=== PATIENT | male | born 1955 | race Caucasian/White ===

== ENCOUNTER 2021-03-16 19:53 | Emergency (ER) | payer OTHER, MEDICARE, SELFPAY ==
[2021-03-16 20:08] VITALS: BP 139/77; PULSE 92; RESP 18; TEMP 36.7; O2SAT 100; BMI 25.9
--- NOTE | 2021-03-16 21:09 | ED.GENADULT ---
HPI - General Adult General Chief complaint: General Medical Stated complaint: depression Source: patient Mode of arrival: ambulatory Limitations: no limitations History of Present Illness HPI narrative: 65-year-old male presents for depression, states that he has chronic pain which is causing his depression. He would like to speak to counselor to help him with coping mechanisms. He denies suicidal ideation, homicidal ideation, alcohol and illicit drug use, denies chest pain or pressure, palpitations, shortness breath, abdominal pain, abdominal distention, fevers, chills nausea, vomiting, dysuria, hematuria, or any other concerning symptoms. Onset (ago): unknown Severity: moderate Pain Consistency: constant Relieving factors: none Associated symptoms: denies other symptoms Related Data Allergies Allergy/AdvReac Type Severity Reaction Status Date / Time ergotamine [ERGOTAMINE] AdvReac Severe NAUSEA Unverified 07/19/20 15:29 Review of Systems Review of Systems: Constitutional: No Fever, No Chills ENT/Mouth: No sore throat, No Rhinorrhea Eyes: No Eye Pain, No Swelling, No Redness Cardiovascular: No Chest Pain, No SOB Respiratory: No Cough, No Sputum Gastrointestinal: No Nausea, No Vomiting, No Diarrhea, No abdominal Pain Genitourinary: No Dysuria, No Hematuria Musculoskeletal: No joint pain, No Myalgias, No Joint Swelling Skin: No Skin Lesions, No rash Neuro: No Weakness, No Numbness, No Loss of Consciousness, No Dizziness, No Headache Psych: No Anxiety, No Depression, No SI/HI/AH/VH Heme/Lymph: No Bruising, No Bleeding,No Lymphadenopathy Endocrine: No Polyuria, No Polydipsia Yes all other systems are reviewed and are negative [facility] Past Medical History Attestation statement: The following information was validated with the patient. Source: old records reviewed Medical History HTN (hypertension) Pacemaker Surgical History History of hip replacement History of spinal fusion Social History Social History Advance Directives: No Advance Directives Information Provided: No Physical Exam Vital Signs: Vital Signs: Last Vital Signs Temp 98.0 F 05/15/21 20:08 Pulse 92 03/16/21 20:08 Resp 18 03/16/21 20:08 BP 139/77 03/16/21 20:08 Pulse Ox 100 03/16/21 20:08 Body Mass Index 25.9 Appearance: Alert. Oriented X3. No acute distress. Eyes: Pupils equal, round and reactive to light. ENT: Pharynx normal. Neck: Normal inspection. Neck supple. CVS: Normal heart rate and rhythm. Pulses normal. Respiratory: No respiratory distress. Breath sounds normal. Abdomen: Soft and nontender. Skin: Skin warm and dry. Normal skin color. Normal skin turgor. Extremities: No lower extremity edema. Neuro: No motor deficit. No sensory deficit. Course Course Course Narrative: 65-year-old male presented for depression and requesting to speak to somebody. Upon my initial assessment, patient states that he has changed his mind, he denies suicidal ideation, and homicidal ideation. States that he has no threat to himself or others. He was given contact numbers for [facility] as an outpatient, we do not have the [facility] counselors present today and they will not be here until tomorrow. As patient is not a harm to himself or others, he feels more appropriate to be discharged home. Medical Decision Making Differential Diagnosis Differential Diagnosis: Depression Medical Records Medical records reviewed: Yes I reviewed the patient's medical records. Discharge Plan Discharge Clinical Impression: Depression Patient Disposition: Home, Self-Care Instructions: Depression (ED) Additional Instructions: Please follow-up with N as an outpatient. Thank you for choosing this emergency department for evaluation. Please follow-up with primary care physician as needed. Return to the emergency department for any new, concerning, or worsening symptoms. Interventions: ED Discharge Assessment Last Done: 03/16/21 21:53 Discharge Date/Time: 03/16/21 21:55
--- NOTE | 2021-03-16 21:45 | PC.NURSE ---
PT BIBA, SITTING UPRIGHT IN CHAIR, RR EVEN UNLABORED, SKIN WPD, AOX3. PT REPORTS FEELING DOWN, CALLED LOCAL POLICE TO ASK FOR PHONE NUMBER FOR SOMEONE TO TALK TO, EMS WAS DISPATCHED TO PT'S HOUSE. PT EXPLICITLY DENIES SI/HI, NO THOUGHTS OF SELF HARM, NO HX SELF HARM. PT FEELS SITUATION WAS A MISUNDERSTANDING, OFFERS NO COMPLAINTS. PT EVALUATED BY BRYANT BAILEY, AGREEABLE TO D/C HOME W/ RESOURCE INFO.
== END 2021-03-16 21:55 | disposition home or self-care (01) ==
PROVIDERS: Emergency Provider Internal Medicine; PCP Internal Medicine
DX: F32.9 Major depressive disorder, single episode, unspecified (principal); G89.29 Other chronic pain; I10 Essential (primary) hypertension; Z95.0 Presence of cardiac pacemaker
CPT/HCPCS: 99282; 99283

== ENCOUNTER 2021-12-18 14:46 | Inpatient (IN) | payer MEDICARE, SELFPAY ==
--- NOTE | 2021-12-18 15:33 | HO.OPPROGNO ---
Subjective Subjective Reason For Visit: MDD Recurrent Episode Moderate Unspec Anxiety D/O Discharge Plan Discharge Referrals: Travis Mcarthur MD [Primary Care Provider] - 1 Week Assessment & Plan I spent minutes with the patient and/or on the patient floor today, greater than?50% of which was spent counseling/coordinating care.
[2021-12-18 16:17] VITALS: BP 190/112; PULSE 74; RESP 16; TEMP 37.2; O2SAT 98
[2021-12-18] MEDS: Acetaminophen 325 MG TABLET 650 MG PO (17:14)
--- NOTE | 2021-12-18 17:29 | PC.ADMIT ---
Patient 66 year-old with history of Hypertension and Pacemaker placement surgery . Arrived to the unit via stretcher today around 15:00 PM from [facility]. Patient was seen at [facility] for suicidal attempt and decompensation of his mental status disorder. Patient reported he was not able to manage his pain because painkiller medication was not working and he decided to hurt himself . On physical examination : Patient is alert, oriented x3, wears glasses and dentures at baseline. HS,LS,BS not listen to, patient, patient has a skin cut to the left side of the neck and in the right wrist, patient declined complete assessment. Patient was admitted to the unit with the diagnosis of Major Depressive Disorder and unspecified anxiety disorder for further evaluation and treatment.
[2021-12-18] MEDS: oxyCODONE HCl Immed Release 5 MG TABLET 20 MG PO (18:27)
[2021-12-18 18:54] VITALS: BMI 22.4
[2021-12-18 19:22] VITALS: BP 134/92; PULSE 76; O2SAT 99
[2021-12-18] MEDS: methADONE HCl 20 MG/2 ML ORAL.CONC 10 MG PO (20:21)
[2021-12-18] MEDS: cloNIDine HCL 0.1 MG TABLET PO (20:21)
[2021-12-18] MEDS: hydrOXYzine HCL 25 MG TABLET PO (20:57)
[2021-12-19] MEDS: oxyCODONE HCl Immed Release 5 MG TABLET 20 MG PO ×4 (01:03→20:35)
[2021-12-19] MEDS: traZODone HCL 50 MG TABLET PO (01:03)
[2021-12-19 07:00] VITALS: BMI 23.0
[2021-12-19 08:15] VITALS: BP 180/90; PULSE 73; RESP 18; TEMP 37.2; O2SAT 97
[2021-12-19] MEDS: methADONE HCl 20 MG/2 ML ORAL.CONC 10 MG PO ×3 (08:23→20:18)
[2021-12-19] MEDS: cloNIDine HCL 0.1 MG TABLET PO ×3 (08:23→20:21)
[2021-12-19] MEDS: lisinopriL 20 MG TABLET PO (08:24)
[2021-12-19 11:46] VITALS: BP 140/82
[2021-12-19] MEDS: Acetaminophen 325 MG TABLET 650 MG PO (12:04)
--- NOTE | 2021-12-19 15:11 | HO.PSYADMNOT ---
HPI Date of Service: 12/19/21 Chief Complaint: MDD Recurrent Episode Moderate Unspec Anxiety D/O Sources of Information: patient interviewed and chart reviewed HPI Subjective Notes: Conditional Voluntary Narrative: The patient is a 66-year-old male, , living alone in his own apartment, unemployed on disability for more than 20 years referred from the emergency room of [facility] for suicidal ideation. The patient admitted that he has been cutting himself all over his body in order to not think about the pain in my spine . The patient claims that he has chronic back pain with several surgeries under of surgical fusions in 3 parts of his spine. Currently, he is not on any pain management clinic, and he has been using opioids from the street, mostly IV heroin. On interview, the patient reported that he has depressed mood, anhedonia, lack of energy, feelings of hopelessness and insomnia. At this moment, he adamantly denied suicidal ideation and he is able to contract for safety. He also denies pedro or past history of psychosis. He admitted that he has been using opioids in high amounts for the last 30 years since he start having chronic pain in his back. At certain point, he was on methadone and he has minimized his substance abuse Past Psychiatric History: denies prior psychiatric admissions, he has followed several times outpatient providers with limited compliance. Medical Evaluation Reviewed: Hospitalist Sandra Pending [facility] Medical History HTN (hypertension) Pacemaker Surgical History History of hip replacement History of spinal fusion Family History: Denies Social History: poor social support common disability for more than 20 years, denies having children or any contact with collateral family. Substance History: He admitted using opted for the last 30 years mostly for chronic pain but also he was on detox and rehab before Trauma History: . Denies Diagnostics Vital Signs (24Hr): Vital Signs - 24 hr 12/18/21 16:17 12/18/21 19:22 12/19/21 08:15 Temperature 98.9 F 99.0 F Pulse Rate 74 76 73 Respiratory Rate 16 18 Blood Pressure 190/112 H 134/92 H 180/90 H Pulse Oximetry 98 99 97 12/19/21 11:46 Temperature Pulse Rate Respiratory Rate Blood Pressure 140/82 H Pulse Oximetry BMI result Body Mass Index 22.4 Meds/Allergies Meds Home Medications Acetaminophen (Acetaminophen 325 Mg Tablet) 650 mg PO Q6H PRN PRN Reason: Headache/Pain Mild Scale (1-3) Last Admin: 12/19/21 12:04 Dose: 650 mg Documented by: Al Hydroxide/Mg Hydroxide (Magnesium Hydrox/Alum Hydrox 30 Ml Oral.Susp) 30 ml PO Q6H PRN PRN Reason: Heartburn/Nausea Clonidine HCl (Clonidine Hcl 0.1 Mg Tablet) 0.1 mg PO TID [facility]; Protocol Last Admin: 12/19/21 14:29 Dose: 0.1 mg Documented by: Hydroxyzine HCl (Hydroxyzine Hcl 25 Mg Tablet) 25 mg PO BEDTIME PRN PRN Reason: Anxiety Last Admin: 12/18/21 20:57 Dose: 25 mg Documented by: Lisinopril (Lisinopril 20 Mg Tablet) 20 mg PO DAILY [facility]; Protocol Last Admin: 12/19/21 08:24 Dose: 20 mg Documented by: Magnesium Hydroxide (Milk Of Magnesia 30 Ml Oral.Susp) 30 ml PO DAILY PRN PRN Reason: Constipation Methadone HCl (Methadone Hcl 20 Mg/2 Ml Oral.Conc) 10 mg PO TID [facility] Last Admin: 12/19/21 14:27 Dose: 10 mg Documented by: Mexiletine HCl (Mexiletine Hcl 150 Mg Capsule) 150 mg PO Q6H [facility] Last Admin: 12/19/21 12:04 Dose: 150 mg Documented by: Oxycodone HCl (Oxycodone Hcl Immed Release 5 Mg Tablet) 20 mg PO Q6H PRN PRN Reason: Pain, Mild (Pain Scale 1-3) Last Admin: 12/19/21 14:28 Dose: 20 mg Documented by: Trazodone HCl (Trazodone Hcl 50 Mg Tablet) 50 mg PO BEDTIME PRN PRN Reason: Insomnia Last Admin: 12/19/21 01:03 Dose: 50 mg Documented by: Allergies Allergies Allergy/AdvReac Type Severity Reaction Status Date / Time ergotamine [ERGOTAMINE] AdvReac Severe NAUSEA Unverified 07/19/20 15:29 Mental Status Exam Mental Status Exam Patient Appearance: Well Grooomed and Appropriate Patient Orientation: Person, Place and Situation Level of Consciousness: Awake and Appropriate Patient Behavior: Appropriate and Cooperative Mood Description: Withdrawn and Depressed Affect Description: Constricted Patient Cognition Impaired: No Ability to Follow Directions: Good Speech Pattern: Clear Memory Description: Intact Hallucinations: None Delusions: Not Present Thought Process: Linear Thought Content: positive for Intact Judgement: Fair Assessment & Plan Assessment & Plan (1) Depressive disorder: Status: Acute Code(s): F32.A - Depression, unspecified (2) Opioid abuse: Status: Acute Code(s): F11.10 - Opioid abuse, uncomplicated Plan middle-aged male with a long history of opiate use disorder due to chronic pain and opiate dependence admitted for self-harming behavior. He is able to contract for safety in the facility. Plan 1. Continue with regular medications. 2. Consultation with [facility] quit in and substance abuse services. 3. Start Remeron 7.5 mg p.o. q.h.s. to target insomnia and depression Reason for continued inpatient stay Substantial Risk for: harm to self, inability to function, rapid decompensation and med/psych decompensation
--- NOTE | 2021-12-19 15:58 | P.CNHOSGPS_ITS ---
History of Present Illness Data of Consult Service Date: 12/19/21 Requesting physician: [facility] Psychiatry Primary Care Provider: Travis Mcarthur MD HPI Reason for consult: H+P 66yo M admitted to [facility]-psych from [facility] ED for suicideal ideation. He has chronic neck and jaw pain and is s/p spinal surgery and jaw ORIF. He has been cutting himself all over his body in order to distract himself from the pain. He abuses IV heroin and IN cocaine. He is on methadone. Hospitalist consultation requested per protocol for routine medical H+P. Review of Systems Review of Systems: Yes all other systems are reviewed and are negative PMFSH Medical History HTN (hypertension) Pacemaker Functional capacity: uses cane/walker Pertinent family history: no CAD or DM Surgical History History of hip replacement History of spinal fusion Social History Household Members: None Housing: House Do you presently have visiting nurse or other home services: No Patient Tobacco Use Status: Never used Tobacco Use of substances other than those prescribed or required for medical reasons: Yes Substance Use Type: Heroin, IV Drugs, Marijuana, Opiates, Painkillers and Caffiene Substance Use Frequency: Occasionally Last Used Substance: Unknown Last Used Substance Other:: More than 5 years ago for the heroin. Painkillers used last night. Currently Displaying Signs/Symptoms of Drug Intoxication Withdrawal: No Any prior treatment program specific to substance use: Yes (He used to be in the methadone clinic.) Have you been hit, kicked, punched, or otherwise hurt by someone within the past year? If so, by whom?: No Do you feel safe in your current relationship?: No Current Relationship Is there a partner from a previous relationship who is making you feel unsafe now?: No Are you made to feel afraid or neglected: No Advance Directives: No Advance Directives Information Provided: No Advance Directives on File: No Do you have thoughts of harming others: None Do you have a plan to hurt others: No Plan Recently lost weight without trying: No Eating poorly because of decreased appetite: No Nutrition Risks: No Nutritional Risk Poor oral hygiene: No service: No Sexual orientation: Straight/Heterosexual Meds Allergies Allergy/AdvReac Type Severity Reaction Status Date / Time ergotamine [ERGOTAMINE] AdvReac Severe NAUSEA Unverified 07/19/20 15:29 Active Medications: Current Medications Acetaminophen (Acetaminophen 325 Mg Tablet) 650 mg PO Q6H PRN PRN Reason: Headache/Pain Mild Scale (1-3) Last Admin: 12/19/21 12:04 Dose: 650 mg Documented by: Al Hydroxide/Mg Hydroxide (Magnesium Hydrox/Alum Hydrox 30 Ml Oral.Susp) 30 ml PO Q6H PRN PRN Reason: Heartburn/Nausea Clonidine HCl (Clonidine Hcl 0.1 Mg Tablet) 0.1 mg PO TID [facility]; Protocol Last Admin: 12/19/21 14:29 Dose: 0.1 mg Documented by: Hydroxyzine HCl (Hydroxyzine Hcl 25 Mg Tablet) 25 mg PO BEDTIME PRN PRN Reason: Anxiety Last Admin: 12/18/21 20:57 Dose: 25 mg Documented by: Lisinopril (Lisinopril 20 Mg Tablet) 20 mg PO DAILY [facility]; Protocol Last Admin: 12/19/21 08:24 Dose: 20 mg Documented by: Magnesium Hydroxide (Milk Of Magnesia 30 Ml Oral.Susp) 30 ml PO DAILY PRN PRN Reason: Constipation Methadone HCl (Methadone Hcl 20 Mg/2 Ml Oral.Conc) 10 mg PO TID [facility] Last Admin: 12/19/21 14:27 Dose: 10 mg Documented by: Mexiletine HCl (Mexiletine Hcl 150 Mg Capsule) 150 mg PO Q6H [facility] Last Admin: 12/19/21 12:04 Dose: 150 mg Documented by: Mirtazapine (Mirtazapine 7.5 Mg Tablet) 7.5 mg PO BEDTIME [place] Oxycodone HCl (Oxycodone Hcl Immed Release 5 Mg Tablet) 20 mg PO Q6H PRN PRN Reason: Pain, Mild (Pain Scale 1-3) Last Admin: 12/19/21 14:28 Dose: 20 mg Documented by: Trazodone HCl (Trazodone Hcl 50 Mg Tablet) 50 mg PO BEDTIME PRN PRN Reason: Insomnia Last Admin: 12/19/21 01:03 Dose: 50 mg Documented by: Home Medications Medication Instructions Recorded Confirmed Last Taken Type clonidine HCl 0.2 mg tablet 1 tab PO TID 12/18/21 12/18/21 12/18/21 History lisinopril 20 mg tablet 1 tab PO DAILY 12/18/21 12/18/21 Unknown History methadone 10 mg tablet 1 tab PO Q8H PRN 12/18/21 12/18/21 12/18/21 History mexiletine 150 mg capsule 1 cap PO Q6H 12/18/21 12/18/21 12/18/21 History nifedipine 60 mg tablet,extended 1 tab PO DAILY 12/18/21 12/18/21 Unknown History release 24 hr Assessment and Plan (1) Hypertension: Status: Acute (2) Opioid abuse: Status: Acute (3) Depressive disorder: Status: Acute (4) Chronic pain: Status: Acute Plan 66yo M with HTN, pacemaker, chronic pain admitted to [facility] after suicidal gestures. Routine hospitalist consult requested per protocol. # HTN - continue lisinopril, clonidine, and nifedipine # ?ventricular arrhythmia - continue mexiletene # chronic pain - on methadone; consider Addiction Medicine consult and/or outpt Pain Management consult Thank you for this consultation. We are signing off the case at this time. Please communicate with us if any new medical questions arise. Physical Exam Vital Signs: Last Vital Signs Temp 99.0 F 12/19/21 08:15 Pulse 73 12/19/21 08:15 Resp 18 12/19/21 08:15 BP 140/82 H 12/19/21 11:46 Pulse Ox 97 12/19/21 08:15 BMI result Body Mass Index 22.4 Gen: in no acute distress HEENT: sclera anicteric, moist mucus membranes Neck: supple Lungs: clear to auscultation bilaterally Heart: regular rate and rhythm, no murmurs Abd: soft, non-tender, non-distended Ext: no edema Skin: warm/well-perfused Neuro: alert and oriented x3, no focal findings Psych: appropriate affect Neuro Cranial nerves: Yes CN's II-XII intact bilaterally
--- NOTE | 2021-12-19 17:00 | PC.NURSE ---
During interaction with this RN when asked how patient is feeling, Patient stated I wake up in agony each day. When I get out of here I am going to shove a knife through my eye. That will cause damage that can not be fixed. They may be able to pump some blood into me but it won't get fixed. It is not the best idea but it'll get the job done. Or I could shove a knife through my neck . Patient denied Plan or intent to act while in patient.
[2021-12-19 19:36] VITALS: BP 119/65; PULSE 73; RESP 19; TEMP 36.6; O2SAT 98
[2021-12-19] MEDS: Mirtazapine 7.5 MG TABLET PO (20:38)
[2021-12-20] MEDS: Acetaminophen 325 MG TABLET 650 MG PO ×3 (04:29→18:38)
[2021-12-20] MEDS: oxyCODONE HCl Immed Release 5 MG TABLET 20 MG PO ×3 (06:01→18:37)
[2021-12-20 07:49] VITALS: BP 148/67; PULSE 74; RESP 18; TEMP 36.8; O2SAT 96
[2021-12-20] MEDS: methADONE HCl 20 MG/2 ML ORAL.CONC 10 MG PO ×3 (07:51→21:00)
[2021-12-20] MEDS: NIFEdipine ER 60 MG TAB.ER.24 PO (07:53)
[2021-12-20] MEDS: lisinopriL 20 MG TABLET PO (07:53)
[2021-12-20] MEDS: cloNIDine HCL 0.1 MG TABLET PO ×3 (07:53→20:59)
--- NOTE | 2021-12-20 12:02 | HO.PSYCHPN ---
Subjective Subjective Date of Service: 12/20/21 Reason For Visit: MDD Recurrent Episode Moderate Unspec Anxiety D/O Subjective Notes: Conditional Voluntary Interim History: the nursing staff reported the patient has been compliant with medications. He has stated that he is going to commit suicide as soon as he gets discharged from here. Even the he claims to be depressed and suicidal, his affect is full and appropriate. He slept well and he is eating 100% of his meals. On interview, the patient admitted that he has suicidal thoughts, he understood that there are limits on the ability that we have to help him. He has chronic psychosocial stressors, poor social support and opioid use disorder. Mental Status Exam Mental Status Exam Patient Appearance: Appropriate Patient Orientation: Person and Situation Level of Consciousness: Awake Patient Behavior: Cooperative and Passive Mood Description: Calm Affect Description: Constricted Patient Cognition Impaired: No Ability to Follow Directions: Good Speech Pattern: Clear Memory Description: Intact Hallucinations: None Delusions: Not Present Thought Content: positive for Goal Oriented Judgement: Fair Diagnostics Vital Signs (24Hr): Vital Signs - 24 hr 12/19/21 19:36 12/20/21 07:49 Temperature 97.8 F 98.3 F Pulse Rate 73 74 Respiratory Rate 19 18 Blood Pressure 119/65 148/67 H Pulse Oximetry 98 96 BMI result Body Mass Index 23.0 Medications Medications Current Medications Acetaminophen (Acetaminophen 325 Mg Tablet) 650 mg PO Q6H PRN PRN Reason: Headache/Pain Mild Scale (1-3) Last Admin: 12/20/21 11:23 Dose: 650 mg Documented by: Al Hydroxide/Mg Hydroxide (Magnesium Hydrox/Alum Hydrox 30 Ml Oral.Susp) 30 ml PO Q6H PRN PRN Reason: Heartburn/Nausea Clonidine HCl (Clonidine Hcl 0.1 Mg Tablet) 0.1 mg PO TID [facility]; Protocol Last Admin: 12/20/21 07:53 Dose: 0.1 mg Documented by: Hydroxyzine HCl (Hydroxyzine Hcl 25 Mg Tablet) 25 mg PO BEDTIME PRN PRN Reason: Anxiety Last Admin: 12/18/21 20:57 Dose: 25 mg Documented by: Lisinopril (Lisinopril 20 Mg Tablet) 20 mg PO DAILY [facility]; Protocol Last Admin: 12/20/21 07:53 Dose: 20 mg Documented by: Magnesium Hydroxide (Milk Of Magnesia 30 Ml Oral.Susp) 30 ml PO DAILY PRN PRN Reason: Constipation Methadone HCl (Methadone Hcl 20 Mg/2 Ml Oral.Conc) 10 mg PO TID [facility] Last Admin: 12/20/21 07:51 Dose: 10 mg Documented by: Mexiletine HCl (Mexiletine Hcl 150 Mg Capsule) 150 mg PO Q6H [facility] Last Admin: 12/20/21 11:24 Dose: 150 mg Documented by: Mirtazapine (Mirtazapine 7.5 Mg Tablet) 7.5 mg PO BEDTIME [place] Last Admin: 12/19/21 20:38 Dose: 7.5 mg Documented by: Nifedipine (Nifedipine Er 60 Mg Tab.Er.24) 60 mg PO DAILY [place]; Protocol Last Admin: 12/20/21 07:53 Dose: 60 mg Documented by: Oxycodone HCl (Oxycodone Hcl Immed Release 5 Mg Tablet) 20 mg PO Q6H PRN PRN Reason: Pain, Mild (Pain Scale 1-3) Last Admin: 12/20/21 06:01 Dose: 20 mg Documented by: Trazodone HCl (Trazodone Hcl 50 Mg Tablet) 50 mg PO BEDTIME PRN PRN Reason: Insomnia Last Admin: 12/19/21 01:03 Dose: 50 mg Documented by: Allergies Allergies Allergy/AdvReac Type Severity Reaction Status Date / Time ergotamine [ERGOTAMINE] AdvReac Severe NAUSEA Unverified 07/19/20 15:29 Assessment & Plan Assessment & Plan (1) Hypertension: Status: Acute Code(s): I10 - Essential (primary) hypertension (2) Opioid abuse: Status: Acute Code(s): F11.10 - Opioid abuse, uncomplicated (3) Depressive disorder: Status: Acute Code(s): F32.A - Depression, unspecified (4) Chronic pain: Status: Acute Code(s): G89.29 - Other chronic pain Plan 66yo M with HTN, pacemaker, chronic pain admitted to [facility] after suicidal gestures. Routine hospitalist consult requested per protocol. The patient carries a diagnosis of opiate use disorder and depressive symptoms. Plan 1. Increase Remeron up to 15 mg p.o. q.h.s.. 2. Consult with Iman Bradley for substance abuse. I spent minutes with the patient and/or on the patient floor today, greater than?50% of which was spent counseling/coordinating care. Reason for contiued inpatient stay Substantial Risk for: inability to function, rapid decompensation and med/psych decompensation
[2021-12-20 16:43] VITALS: BP 129/82; PULSE 75
[2021-12-20 20:50] VITALS: BP 103/64; PULSE 99; RESP 18; TEMP 36.9; O2SAT 98
[2021-12-20] MEDS: Mirtazapine 15 MG TABLET PO (20:59)
[2021-12-21] MEDS: oxyCODONE HCl Immed Release 5 MG TABLET 20 MG PO ×4 (00:24→19:40)
[2021-12-21] MEDS: Acetaminophen 325 MG TABLET 650 MG PO ×3 (00:25→19:41)
[2021-12-21] MEDS: hydrOXYzine HCL 25 MG TABLET PO (00:33)
[2021-12-21] MEDS: traZODone HCL 50 MG TABLET PO (00:33)
[2021-12-21] MEDS: Magnesium Hydrox/Alum Hydrox 30 ML ORAL.SUSP PO ×2 (06:45→21:22)
[2021-12-21 08:00] VITALS: BP 116/76; PULSE 99; TEMP 36.6; O2SAT 96
[2021-12-21] MEDS: lisinopriL 20 MG TABLET PO (08:13)
[2021-12-21] MEDS: cloNIDine HCL 0.1 MG TABLET PO ×3 (08:13→20:01)
[2021-12-21] MEDS: NIFEdipine ER 60 MG TAB.ER.24 PO (08:13)
[2021-12-21] MEDS: methADONE HCl 20 MG/2 ML ORAL.CONC 10 MG PO ×3 (08:14→20:01)
--- NOTE | 2021-12-21 10:19 | P.PNPSI_ITS ---
Subjective Subjective Date of Service: 12/21/21 Reason For Visit: MDD Recurrent Episode Moderate Unspec Anxiety D/O Interim History: pt is found sleeping in front of the TV. easily rousable. affable, engaging. states he is depressed and suicidal and there isn't much anyone can do about it. states meds don't work. reviews his life as a shit sandwich, states he's been told he's not depressed, he's just had a rotten life. MD encourages pt to consider ECT, which pt states he will. informs MD he has no plan or intent to harm himself in the hospital. per staff, pleasant, poor sleep. +SI, no plan or intent here. left face and arm lacs. pain-med seeking. Mental Status Exam Mental Status Exam Narrative: appropriately dressed and groomed. cooperative. no PMA/PMR. speech incr in rate and amount, nml loudness, decr latency. thoughts linear and logical in response to questions, spontaneously wandering. affect full range, normo- intense, non-labile, not consistent with expressed mood or context. mood depressed. endorses SI. no HI/AVH expressed. Diagnostics Vital Signs (24Hr): Vital Signs - 24 hr 12/20/21 16:43 12/20/21 20:50 Temperature 98.5 F Pulse Rate 75 99 Respiratory Rate 18 Blood Pressure 129/82 103/64 Pulse Oximetry 98 BMI result Body Mass Index 23.0 Medications Medications Current Medications Acetaminophen (Acetaminophen 325 Mg Tablet) 650 mg PO Q6H PRN PRN Reason: Headache/Pain Mild Scale (1-3) Last Admin: 12/21/21 06:33 Dose: 650 mg Documented by: Al Hydroxide/Mg Hydroxide (Magnesium Hydrox/Alum Hydrox 30 Ml Oral.Susp) 30 ml PO Q6H PRN PRN Reason: Heartburn/Nausea Last Admin: 12/21/21 06:45 Dose: 30 ml Documented by: Clonidine HCl (Clonidine Hcl 0.1 Mg Tablet) 0.1 mg PO TID [place]; Protocol Last Admin: 12/21/21 08:13 Dose: 0.1 mg Documented by: Hydroxyzine HCl (Hydroxyzine Hcl 25 Mg Tablet) 25 mg PO BEDTIME PRN PRN Reason: Anxiety Last Admin: 12/21/21 00:33 Dose: 25 mg Documented by: Lisinopril (Lisinopril 20 Mg Tablet) 20 mg PO DAILY [facility]; Protocol Last Admin: 12/21/21 08:13 Dose: 20 mg Documented by: Magnesium Hydroxide (Milk Of Magnesia 30 Ml Oral.Susp) 30 ml PO DAILY PRN PRN Reason: Constipation Methadone HCl (Methadone Hcl 20 Mg/2 Ml Oral.Conc) 10 mg PO TID [facility] Last Admin: 12/21/21 08:14 Dose: 10 mg Documented by: Mexiletine HCl (Mexiletine Hcl 150 Mg Capsule) 150 mg PO Q6H [facility] Last Admin: 12/21/21 05:08 Dose: 150 mg Documented by: Mirtazapine (Mirtazapine 15 Mg Tablet) 15 mg PO BEDTIME [facility] Last Admin: 12/20/21 20:59 Dose: 15 mg Documented by: Nifedipine (Nifedipine Er 60 Mg Tab.Er.24) 60 mg PO DAILY [facility]; Protocol Last Admin: 12/21/21 08:13 Dose: 60 mg Documented by: Oxycodone HCl (Oxycodone Hcl Immed Release 5 Mg Tablet) 20 mg PO Q6H PRN PRN Reason: Pain, Mild (Pain Scale 1-3) Last Admin: 12/21/21 06:34 Dose: 20 mg Documented by: Trazodone HCl (Trazodone Hcl 50 Mg Tablet) 50 mg PO BEDTIME PRN PRN Reason: Insomnia Last Admin: 12/21/21 00:33 Dose: 50 mg Documented by: Allergies Allergies Allergy/AdvReac Type Severity Reaction Status Date / Time ergotamine [ERGOTAMINE] AdvReac Severe NAUSEA Verified 12/20/21 20:55 Assessment & Plan Assessment & Plan (1) Hypertension: Status: Acute Code(s): I10 - Essential (primary) hypertension (2) Opioid abuse: Status: Acute Code(s): F11.10 - Opioid abuse, uncomplicated (3) Depressive disorder: Status: Acute Code(s): F32.A - Depression, unspecified (4) Chronic pain: Status: Acute Code(s): G89.29 - Other chronic pain Plan 66yo M with HTN, pacemaker, chronic pain admitted to [facility] after suicidal gestures. Routine hospitalist consult requested per protocol. The patient carries a diagnosis of opiate use disorder and depressive symptoms. Plan 1. Increase Remeron up to 15 mg p.o. q.h.s. increase remeron to 30 mg QHS as of 12/21 for insomnia. 2. Consult with Iman Bradley for substance abuse. I spent minutes with the patient and/or on the patient floor today, greater than?50% of which was spent counseling/coordinating care. Reason for contiued inpatient stay Substantial Risk for: harm to self, inability to function and rapid decompensation
[2021-12-21 15:00] VITALS: BP 111/83; PULSE 119; O2SAT 94
[2021-12-21 17:58] VITALS: BP 130/63; PULSE 103; O2SAT 98
[2021-12-21 19:53] VITALS: BP 122/62; PULSE 94; RESP 18; TEMP 36.5; O2SAT 97
[2021-12-21] MEDS: Mirtazapine 30 MG TABLET PO (20:01)
[2021-12-22] MEDS: traZODone HCL 50 MG TABLET PO ×2 (01:38→23:09)
[2021-12-22] MEDS: hydrOXYzine HCL 25 MG TABLET PO ×2 (01:38→23:09)
[2021-12-22] MEDS: oxyCODONE HCl Immed Release 5 MG TABLET 20 MG PO ×2 (01:38→20:25)
[2021-12-22] MEDS: Acetaminophen 325 MG TABLET 650 MG PO (01:39)
[2021-12-22 06:00] VITALS: BP 156/83; PULSE 125; TEMP 37; O2SAT 98
[2021-12-22] MEDS: lisinopriL 20 MG TABLET PO (08:06)
[2021-12-22] MEDS: methADONE HCl 20 MG/2 ML ORAL.CONC 10 MG PO ×3 (08:06→20:15)
[2021-12-22] MEDS: NIFEdipine ER 60 MG TAB.ER.24 PO (08:06)
[2021-12-22] MEDS: cloNIDine HCL 0.1 MG TABLET PO ×3 (08:06→20:15)
--- NOTE | 2021-12-22 10:13 | P.PNPSI_ITS ---
Subjective Subjective Date of Service: 12/22/21 Reason For Visit: MDD Recurrent Episode Moderate Unspec Anxiety D/O Interim History: pt remains affable, engaging. reiterates his plan to kill himself after he discharges from the hospital. states he is depressed. adamantly denies any rolf n or intent to harm himself while here. discusses his social isolation and loneliness as reasons for wanting to end his life. per staff, c/o 10/10 pain in the neck and wrist. +SI, no plan or intent while hospitalized. Mental Status Exam Mental Status Exam Narrative: appropriately dressed and groomed. cooperative. no PMA/PMR. speech incr in rate and amount, nml loudness, decr latency. thoughts linear and logical in response to questions, spontaneously wandering. affect full range, normo-i ntense, non-labile, not consistent with expressed mood or context. mood depressed. endorses SI. no HI/AVH expressed. Diagnostics Vital Signs (24Hr): Vital Signs - 24 hr 12/21/21 15:00 12/21/21 17:58 12/21/21 19:53 Temperature 97.7 F Pulse Rate 119 H 103 H 94 Respiratory Rate 18 Blood Pressure 111/83 130/63 122/62 Pulse Oximetry 94 98 97 BMI result Body Mass Index 23.0 Medications Medications Current Medications Acetaminophen (Acetaminophen 325 Mg Tablet) 650 mg PO Q6H PRN PRN Reason: Headache/Pain Mild Scale (1-3) Last Admin: 12/22/21 01:39 Dose: 650 mg Documented by: Al Hydroxide/Mg Hydroxide (Magnesium Hydrox/Alum Hydrox 30 Ml Oral.Susp) 30 ml PO Q6H PRN PRN Reason: Heartburn/Nausea Last Admin: 12/21/21 21:22 Dose: 30 ml Documented by: Clonidine HCl (Clonidine Hcl 0.1 Mg Tablet) 0.1 mg PO TID [place]; Protocol Last Admin: 12/22/21 08:06 Dose: 0.1 mg Documented by: Hydroxyzine HCl (Hydroxyzine Hcl 25 Mg Tablet) 25 mg PO BEDTIME PRN PRN Reason: Anxiety Last Admin: 12/22/21 01:38 Dose: 25 mg Documented by: Lisinopril (Lisinopril 20 Mg Tablet) 20 mg PO DAILY [facility]; Protocol Last Admin: 12/22/21 08:06 Dose: 20 mg Documented by: Magnesium Hydroxide (Milk Of Magnesia 30 Ml Oral.Susp) 30 ml PO DAILY PRN PRN Reason: Constipation Methadone HCl (Methadone Hcl 20 Mg/2 Ml Oral.Conc) 10 mg PO TID [facility] Last Admin: 12/22/21 08:06 Dose: 10 mg Documented by: Mexiletine HCl (Mexiletine Hcl 150 Mg Capsule) 150 mg PO Q6H [facility] Last Admin: 12/22/21 05:32 Dose: 150 mg Documented by: Mirtazapine (Mirtazapine 30 Mg Tablet) 30 mg PO BEDTIME [facility] Last Admin: 12/21/21 20:01 Dose: 30 mg Documented by: Nifedipine (Nifedipine Er 60 Mg Tab.Er.24) 60 mg PO DAILY [facility]; Protocol Last Admin: 12/22/21 08:06 Dose: 60 mg Documented by: Oxycodone HCl (Oxycodone Hcl Immed Release 5 Mg Tablet) 20 mg PO Q6H PRN PRN Reason: Pain, Mild (Pain Scale 1-3) Last Admin: 12/22/21 01:38 Dose: 20 mg Documented by: Trazodone HCl (Trazodone Hcl 50 Mg Tablet) 50 mg PO BEDTIME PRN PRN Reason: Insomnia Last Admin: 12/22/21 01:38 Dose: 50 mg Documented by: Allergies Allergies Allergy/AdvReac Type Severity Reaction Status Date / Time ergotamine [ERGOTAMINE] AdvReac Severe NAUSEA Verified 12/20/21 20:55 Assessment & Plan Assessment & Plan (1) Hypertension: Status: Acute Code(s): I10 - Essential (primary) hypertension (2) Opioid abuse: Status: Acute Code(s): F11.10 - Opioid abuse, uncomplicated (3) Depressive disorder: Status: Acute Code(s): F32.A - Depression, unspecified (4) Chronic pain: Status: Acute Code(s): G89.29 - Other chronic pain Plan 66yo M with HTN, pacemaker, chronic pain admitted [facility] after suicidal gestures. Routine hospitalist consult requested per protocol. The patient carries a diagnosis of opiate use disorder and depressive symptoms. Plan 1. Increase Remeron up to 15 mg p.o. q.h.s. increased remeron to 30 mg QHS as of 12/21 for insomnia. 2. Consult with Iman Bradley for substance abuse. 3. T/C commitment and ECT as pt is clearly expressing intent to end his life post-discharge. I spent minutes with the patient and/or on the patient floor today, greater than?50% of which was spent counseling/coordinating care. Reason for contiued inpatient stay Substantial Risk for: harm to self
--- NOTE | 2021-12-22 14:02 | PC.NURSE ---
Pt reports I will not hurt myself here, but when I go home, no matter how long it takes, I will make sure I do it the right way and end it all . Pt contracted for safety while on the unit.
[2021-12-22 15:50] VITALS: BP 133/72; PULSE 97; O2SAT 98
[2021-12-22] MEDS: Mirtazapine 30 MG TABLET PO (20:15)
[2021-12-22 20:46] VITALS: BP 169/82; PULSE 106; RESP 18; TEMP 36.9; O2SAT 98
[2021-12-23 09:00] VITALS: BP 147/79; PULSE 76; RESP 16; TEMP 36.6; O2SAT 98
[2021-12-23] MEDS: NIFEdipine ER 60 MG TAB.ER.24 PO (09:37)
[2021-12-23] MEDS: oxyCODONE HCl Immed Release 5 MG TABLET 20 MG PO ×3 (09:37→22:01)
[2021-12-23] MEDS: methADONE HCl 20 MG/2 ML ORAL.CONC 10 MG PO ×3 (09:37→20:21)
[2021-12-23] MEDS: cloNIDine HCL 0.1 MG TABLET PO ×3 (09:38→20:21)
[2021-12-23] MEDS: lisinopriL 20 MG TABLET PO (09:39)
[2021-12-23 16:00] VITALS: BP 115/61; PULSE 71; O2SAT 97
--- NOTE | 2021-12-23 16:31 | P.PNPSI_ITS ---
Subjective Subjective Date of Service: 12/23/21 Reason For Visit: MDD Recurrent Episode Moderate Unspec Anxiety D/O Interim History: pt found resting in bed late morning. c/o pain. no requests or complaints. still wanting to , not planning to do anything to [facility] himself [facility]. per staff, expressing anx/dep 08/11. +SI. slept about 7 hours. got hydroxyzine, trazodone, and oxycodone last NOC. Mental Status Exam Mental Status Exam Narrative: appropriately dressed and groomed. cooperative. no PMA/PMR. speech incr in rate, decr amount, nml loudness, nml latency. thoughts linear and logical in response to questions. affect constricted, normo-intense, non-labile, consistent with context. endorses SI. no HI/AVH expressed. Diagnostics Vital Signs (24Hr): Vital Signs - 24 hr 12/22/21 20:46 12/23/21 09:00 Temperature 98.4 F 98 F Pulse Rate 106 H 76 Respiratory Rate 18 16 Blood Pressure 169/82 H 147/79 H Pulse Oximetry 98 98 BMI result Body Mass Index 23.0 Medications Medications Current Medications Acetaminophen (Acetaminophen 325 Mg Tablet) 650 mg PO Q6H PRN PRN Reason: Headache/Pain Mild Scale (1-3) Last Admin: 12/22/21 01:39 Dose: 650 mg Documented by: Al Hydroxide/Mg Hydroxide (Magnesium Hydrox/Alum Hydrox 30 Ml Oral.Susp) 30 ml PO Q6H PRN PRN Reason: Heartburn/Nausea Last Admin: 12/21/21 21:22 Dose: 30 ml Documented by: Clonidine HCl (Clonidine Hcl 0.1 Mg Tablet) 0.1 mg PO TID [facility]; Protocol Last Admin: 12/23/21 16:10 Dose: 0.1 mg Documented by: Hydroxyzine HCl (Hydroxyzine Hcl 25 Mg Tablet) 25 mg PO BEDTIME PRN PRN Reason: Anxiety Last Admin: 12/22/21 23:09 Dose: 25 mg Documented by: Lisinopril (Lisinopril 20 Mg Tablet) 20 mg PO DAILY [facility]; Protocol Last Admin: 12/23/21 09:39 Dose: 20 mg Documented by: Magnesium Hydroxide (Milk Of Magnesia 30 Ml Oral.Susp) 30 ml PO DAILY PRN PRN Reason: Constipation Methadone HCl (Methadone Hcl 20 Mg/2 Ml Oral.Conc) 10 mg PO TID [facility] Last Admin: 12/23/21 16:11 Dose: 10 mg Documented by: Mexiletine HCl (Mexiletine Hcl 150 Mg Capsule) 150 mg PO Q6H [facility] Last Admin: 12/23/21 16:10 Dose: 150 mg Documented by: Mirtazapine (Mirtazapine 30 Mg Tablet) 30 mg PO BEDTIME [facility] Last Admin: 12/22/21 20:15 Dose: 30 mg Documented by: Nifedipine (Nifedipine Er 60 Mg Tab.Er.24) 60 mg PO DAILY [facility]; Protocol Last Admin: 12/23/21 09:37 Dose: 60 mg Documented by: Oxycodone HCl (Oxycodone Hcl Immed Release 5 Mg Tablet) 20 mg PO Q6H PRN PRN Reason: Pain, Mild (Pain Scale 1-3) Last Admin: 12/23/21 16:10 Dose: 20 mg Documented by: Trazodone HCl (Trazodone Hcl 50 Mg Tablet) 50 mg PO BEDTIME PRN PRN Reason: Insomnia Last Admin: 12/22/21 23:09 Dose: 50 mg Documented by: Allergies Allergies Allergy/AdvReac Type Severity Reaction Status Date / Time ergotamine [ERGOTAMINE] AdvReac Severe NAUSEA Verified 12/20/21 20:55 Assessment & Plan Assessment & Plan (1) Hypertension: Status: Acute Code(s): I10 - Essential (primary) hypertension (2) Opioid abuse: Status: Acute Code(s): F11.10 - Opioid abuse, uncomplicated (3) Depressive disorder: Status: Acute Code(s): F32.A - Depression, unspecified (4) Chronic pain: Status: Acute Code(s): G89.29 - Other chronic pain Plan 66yo M with HTN, pacemaker, chronic pain admitted to [facility] after suicidal gestures. Routine hospitalist consult requested per protocol. The patient carries a diagnosis of opiate use disorder and depressive symptoms. Plan 1. Increase Remeron up to 15 mg p.o. q.h.s. increased remeron to 30 mg QHS as of 12/21 for insomnia. 2. Consult with Iman Bradley for substance abuse. 3. T/C commitment and ECT as pt is clearly expressing intent to end his life post-discharge. I spent minutes with the patient and/or on the patient floor today, greater than?50% of which was spent counseling/coordinating care. Reason for contiued inpatient stay Substantial Risk for: harm to self
[2021-12-23 19:00] VITALS: BP 160/86; PULSE 92; RESP 16; TEMP 36.4; O2SAT 98
[2021-12-23] MEDS: Acetaminophen 325 MG TABLET 650 MG PO (19:45)
[2021-12-23] MEDS: Mirtazapine 30 MG TABLET PO (20:21)
[2021-12-24] MEDS: hydrOXYzine HCL 25 MG TABLET PO ×2 (00:47→22:48)
[2021-12-24] MEDS: traZODone HCL 50 MG TABLET PO ×2 (00:47→22:48)
[2021-12-24] MEDS: oxyCODONE HCl Immed Release 5 MG TABLET 20 MG PO ×3 (05:37→20:00)
[2021-12-24 07:10] VITALS: BP 146/58; PULSE 100; RESP 18; TEMP 36.6; O2SAT 97
[2021-12-24] MEDS: lisinopriL 20 MG TABLET PO (08:31)
[2021-12-24] MEDS: cloNIDine HCL 0.1 MG TABLET PO ×3 (08:31→20:58)
[2021-12-24] MEDS: methADONE HCl 20 MG/2 ML ORAL.CONC 10 MG PO ×3 (08:31→20:02)
[2021-12-24] MEDS: NIFEdipine ER 60 MG TAB.ER.24 PO (08:31)
--- NOTE | 2021-12-24 10:58 | P.PNPSI_ITS ---
Subjective Subjective Date of Service: 12/24/21 Reason For Visit: MDD Recurrent Episode Moderate Unspec Anxiety D/O Subjective Notes: Conditional Voluntary Interim History: The nursing staff reported that the patient is appropriate slept well. He has been visible in the unit. He complained of pain and he has been agitated requesting his opioids. He has shown drug-seeking behavior. He also has reported that as soon as he gets discharged he will commit suicide because there is nothing to live for him. Even though that he verbalized suicidal ideation, he was ready to contract for safety in the facility. On interview, it was clear that his alleged mood does not have correlation with his observed affect. His affect was full and appropriate and even though that he endorsed suicidal ideation and depression he didn't look dysphoric. The patient denies side effects with Remeron at night. Medication Compliance: Yes Mental Status Exam Mental Status Exam Patient Appearance: Well Grooomed Patient Orientation: Person, Place, Time and Situation Level of Consciousness: Awake and Appropriate Patient Behavior: Guarded, Cooperative and Passive Mood Description: Appropriate Affect Description: Constricted Patient Cognition Impaired: No Ability to Follow Directions: Good Speech Pattern: Clear Memory Description: Intact Hallucinations: None Delusions: Not Present Thought Process: Linear Thought Content: positive for Circumstantial Judgement: Fair Diagnostics Vital Signs (24Hr): Vital Signs - 24 hr 12/23/21 16:00 12/23/21 19:00 12/24/21 07:10 Temperature 97.5 F 97.9 F Pulse Rate 71 92 100 Respiratory Rate 16 18 Blood Pressure 115/61 160/86 H 146/58 H Pulse Oximetry 97 98 97 BMI result Body Mass Index 23.0 Medications Medications Current Medications Acetaminophen (Acetaminophen 325 Mg Tablet) 650 mg PO Q6H PRN PRN Reason: Headache/Pain Mild Scale (1-3) Last Admin: 12/23/21 19:45 Dose: 650 mg Documented by: Al Hydroxide/Mg Hydroxide (Magnesium Hydrox/Alum Hydrox 30 Ml Oral.Susp) 30 ml PO Q6H PRN PRN Reason: Heartburn/Nausea Last Admin: 12/21/21 21:22 Dose: 30 ml Documented by: Clonidine HCl (Clonidine Hcl 0.1 Mg Tablet) 0.1 mg PO TID [facility]; Protocol Last Admin: 12/24/21 08:31 Dose: 0.1 mg Documented by: Hydroxyzine HCl (Hydroxyzine Hcl 25 Mg Tablet) 25 mg PO BEDTIME PRN PRN Reason: Anxiety Last Admin: 12/24/21 00:47 Dose: 25 mg Documented by: Lisinopril (Lisinopril 20 Mg Tablet) 20 mg PO DAILY [facility]; Protocol Last Admin: 12/24/21 08:31 Dose: 20 mg Documented by: Magnesium Hydroxide (Milk Of Magnesia 30 Ml Oral.Susp) 30 ml PO DAILY PRN PRN Reason: Constipation Methadone HCl (Methadone Hcl 20 Mg/2 Ml Oral.Conc) 10 mg PO TID [facility] Last Admin: 12/24/21 08:31 Dose: 10 mg Documented by: Mexiletine HCl (Mexiletine Hcl 150 Mg Capsule) 150 mg PO Q6H [facility] Last Admin: 12/24/21 05:37 Dose: 150 mg Documented by: Mirtazapine (Mirtazapine 30 Mg Tablet) 30 mg PO BEDTIME [facility] Last Admin: 12/23/21 20:21 Dose: 30 mg Documented by: Nifedipine (Nifedipine Er 60 Mg Tab.Er.24) 60 mg PO DAILY [facility]; Protocol Last Admin: 12/24/21 08:31 Dose: 60 mg Documented by: Oxycodone HCl (Oxycodone Hcl Immed Release 5 Mg Tablet) 20 mg PO Q6H PRN PRN Reason: Pain, Moderate (Pain Scale 4-6 Stop: 12/26/21 20:45 Last Admin: 12/24/21 05:37 Dose: 20 mg Documented by: Trazodone HCl (Trazodone Hcl 50 Mg Tablet) 50 mg PO BEDTIME PRN PRN Reason: Insomnia Last Admin: 12/24/21 00:47 Dose: 50 mg Documented by: Allergies Allergies Allergy/AdvReac Type Severity Reaction Status Date / Time ergotamine [ERGOTAMINE] AdvReac Severe NAUSEA Verified 12/20/21 20:55 Assessment & Plan Assessment & Plan (1) Hypertension: Status: Acute Code(s): I10 - Essential (primary) hypertension (2) Opioid abuse: Status: Acute Code(s): F11.10 - Opioid abuse, uncomplicated (3) Depressive disorder: Status: Acute Code(s): F32.A - Depression, unspecified (4) Chronic pain: Status: Acute Code(s): G89.29 - Other chronic pain Plan 66yo M with HTN, pacemaker, chronic pain admitted [facility] after suicidal gestures. Routine hospitalist consult requested per protocol. The patient carries a diagnosis of opiate use disorder and depressive symptoms. Plan 1. Keep Remeron titrated up to 30 mg po qhs 2. Consult with Iman Bradley for substance abuse was done last Thursday.. 3. Get more collateral. I spent minutes with the patient and/or on the patient floor today, greater than?50% of which was spent counseling/coordinating care. Reason for contiued inpatient stay Substantial Risk for: inability to function, rapid decompensation and med/psych decompensation
[2021-12-24] MEDS: Acetaminophen 325 MG TABLET 650 MG PO (16:03)
[2021-12-24] MEDS: Magnesium Hydrox/Alum Hydrox 30 ML ORAL.SUSP PO (18:13)
[2021-12-24 20:53] VITALS: BP 124/56; PULSE 85; RESP 18; TEMP 36.3; O2SAT 97
[2021-12-24] MEDS: Mirtazapine 30 MG TABLET PO (20:58)
[2021-12-24 22:47] VITALS: BP 139/86; PULSE 84; RESP 18
[2021-12-25] MEDS: oxyCODONE HCl Immed Release 5 MG TABLET 20 MG PO ×4 (01:56→20:29)
[2021-12-25 08:00] VITALS: BP 141/74; PULSE 79; RESP 20; TEMP 37.3; O2SAT 96
[2021-12-25] MEDS: cloNIDine HCL 0.1 MG TABLET PO ×3 (08:20→20:31)
[2021-12-25] MEDS: NIFEdipine ER 60 MG TAB.ER.24 PO (08:21)
[2021-12-25] MEDS: lisinopriL 20 MG TABLET PO (08:21)
[2021-12-25] MEDS: methADONE HCl 20 MG/2 ML ORAL.CONC 10 MG PO ×3 (08:21→20:31)
--- NOTE | 2021-12-25 11:47 | HO.PSYCHPN ---
Subjective Subjective Date of Service: 12/25/21 Reason For Visit: MDD Recurrent Episode Moderate Unspec Anxiety D/O Subjective Notes: Conditional Voluntary Interim History: The nursing staff reported that the patient has been very social, with appropriate affect. He has eaten all his meals and he takes or his PRNs. On interview, the patient stated that he is safe here and he is able to contract for safety but when discharge he will try to kill himself. Even though the patient alleged to be suicidal, his affect is bright and 4. He also has shown drug-seeking behavior. Mental Status Exam Mental Status Exam Patient Appearance: Well Grooomed Patient Orientation: Person and Situation Level of Consciousness: Awake Patient Behavior: Appropriate Mood Description: Appropriate and Cheerful Affect Description: Calm Patient Cognition Impaired: No Ability to Follow Directions: Good Speech Pattern: Clear Memory Description: Intact Hallucinations: None Delusions: Not Present Thought Process: Intact Thought Content: positive for Intact Judgement: Fair Diagnostics Vital Signs (24Hr): Vital Signs - 24 hr 12/24/21 20:53 12/24/21 22:47 12/25/21 08:00 Temperature 97.4 F 99.2 F Pulse Rate 85 84 79 Respiratory Rate 18 18 20 Blood Pressure 124/56 L 139/86 141/74 H Pulse Oximetry 97 96 BMI result Body Mass Index 23.0 Medications Medications Current Medications Acetaminophen (Acetaminophen 325 Mg Tablet) 650 mg PO Q6H PRN PRN Reason: Headache/Pain Mild Scale (1-3) Last Admin: 12/24/21 16:03 Dose: 650 mg Documented by: Al Hydroxide/Mg Hydroxide (Magnesium Hydrox/Alum Hydrox 30 Ml Oral.Susp) 30 ml PO Q6H PRN PRN Reason: Heartburn/Nausea Last Admin: 12/24/21 18:13 Dose: 30 ml Documented by: Clonidine HCl (Clonidine Hcl 0.1 Mg Tablet) 0.1 mg PO TID [facility]; Protocol Last Admin: 12/25/21 08:20 Dose: 0.1 mg Documented by: Hydroxyzine HCl (Hydroxyzine Hcl 25 Mg Tablet) 25 mg PO BEDTIME PRN PRN Reason: Anxiety Last Admin: 12/24/21 22:48 Dose: 25 mg Documented by: Lisinopril (Lisinopril 20 Mg Tablet) 20 mg PO DAILY [facility]; Protocol Last Admin: 12/25/21 08:21 Dose: 20 mg Documented by: Magnesium Hydroxide (Milk Of Magnesia 30 Ml Oral.Susp) 30 ml PO DAILY PRN PRN Reason: Constipation Methadone HCl (Methadone Hcl 20 Mg/2 Ml Oral.Conc) 10 mg PO TID [facility] Last Admin: 12/25/21 08:21 Dose: 10 mg Documented by: Mexiletine HCl (Mexiletine Hcl 150 Mg Capsule) 150 mg PO Q6H [facility] Last Admin: 12/25/21 11:45 Dose: 150 mg Documented by: Mirtazapine (Mirtazapine 30 Mg Tablet) 30 mg PO BEDTIME [facility] Last Admin: 12/24/21 20:58 Dose: 30 mg Documented by: Nifedipine (Nifedipine Er 60 Mg Tab.Er.24) 60 mg PO DAILY [facility]; Protocol Last Admin: 12/25/21 08:21 Dose: 60 mg Documented by: Oxycodone HCl (Oxycodone Hcl Immed Release 5 Mg Tablet) 20 mg PO Q6H PRN PRN Reason: Pain, Moderate (Pain Scale 4-6 Stop: 12/26/21 20:45 Last Admin: 12/25/21 08:20 Dose: 20 mg Documented by: Trazodone HCl (Trazodone Hcl 50 Mg Tablet) 50 mg PO BEDTIME PRN PRN Reason: Insomnia Last Admin: 12/24/21 22:48 Dose: 50 mg Documented by: Allergies Allergies Allergy/AdvReac Type Severity Reaction Status Date / Time ergotamine [ERGOTAMINE] AdvReac Severe NAUSEA Verified 12/20/21 20:55 Assessment & Plan Assessment & Plan (1) Hypertension: Status: Acute Code(s): I10 - Essential (primary) hypertension (2) Opioid abuse: Status: Acute Code(s): F11.10 - Opioid abuse, uncomplicated (3) Depressive disorder: Status: Acute Code(s): F32.A - Depression, unspecified (4) Chronic pain: Status: Acute Code(s): G89.29 - Other chronic pain Plan 66yo M with HTN, pacemaker, chronic pain admitted to [facility] after suicidal gestures. Routine hospitalist consult requested per protocol. The patient carries a diagnosis of opiate use disorder and depressive symptoms. Plan 1. Keep Remeron titrated up to 30 mg po qhs 2. Consult with Iman Bradley for substance abuse was done last Thursday. We will asked about how to consolidate Mehtadone in a single dose. 3. Get more collateral. I spent minutes with the patient and/or on the patient floor today, greater than?50% of which was spent counseling/coordinating care. Reason for contiued inpatient stay Substantial Risk for: inability to function, rapid decompensation and med/psych decompensation
[2021-12-25 14:10] VITALS: BP 123/81; PULSE 72; TEMP 37.2; O2SAT 94
--- NOTE | 2021-12-25 14:54 | PM.EVENT ---
Event Note Date of Service: 12/25/21 Event Note: Met briefly with patient this afternoon. He reports that the methadone is prescribed by his primary care provider for chronic pain. A mass pat search does indicate this. He states he does not have any concerns right now for substance use disorder, and does not need to meet with substance use team.
[2021-12-25 18:00] VITALS: BP 122/65; PULSE 73; RESP 14; TEMP 36.7; O2SAT 94
[2021-12-25] MEDS: Mirtazapine 30 MG TABLET PO (20:31)
[2021-12-25] MEDS: traZODone HCL 50 MG TABLET PO (23:09)
[2021-12-25] MEDS: hydrOXYzine HCL 25 MG TABLET PO (23:09)
[2021-12-25 23:11] VITALS: BP 131/70; PULSE 75
[2021-12-26] MEDS: oxyCODONE HCl Immed Release 5 MG TABLET 20 MG PO ×3 (02:20→14:47)
[2021-12-26] MEDS: cloNIDine HCL 0.1 MG TABLET PO ×3 (08:45→21:47)
[2021-12-26] MEDS: methADONE HCl 20 MG/2 ML ORAL.CONC 10 MG PO ×3 (08:46→21:44)
[2021-12-26] MEDS: NIFEdipine ER 60 MG TAB.ER.24 PO (08:46)
[2021-12-26] MEDS: lisinopriL 20 MG TABLET PO (08:46)
[2021-12-26 11:50] VITALS: BMI 24.0
--- NOTE | 2021-12-26 14:30 | P.PNPSI_ITS ---
Subjective Subjective Date of Service: 12/26/21 Reason For Visit: MDD Recurrent Episode Moderate Unspec Anxiety D/O Subjective Notes: Conditional Voluntary Interim History: The nursing staff reported the patient had been focus mostly on his pain management trucks. The social media marketing specialist has tried to contact collateral information apparently his primary care physician tried to taper him down of opiates because he was overusing and that is why he stopped taking any m edications and started using heroin. On interview, the patient reported that he has some pain that he feels miserable and he is able to contract for safety in the unit. We discussed the possibility of using pain management services and he was open to be referred to a pain management clinic and start using other medications besides opioids Mental Status Exam Mental Status Exam Patient Appearance: Well Grooomed Patient Orientation: Person, Place, Time and Situation Level of Consciousness: Awake and Appropriate Patient Behavior: Cooperative and Passive Mood Description: Calm Affect Description: Constricted Patient Cognition Impaired: No Ability to Follow Directions: Good Speech Pattern: Clear Memory Description: Intact Delusions: Not Present Thought Process: Linear Thought Content: positive for Intact Judgement: Fair Diagnostics Vital Signs (24Hr): Vital Signs - 24 hr 12/25/21 18:00 12/25/21 23:11 Temperature 98.1 F Pulse Rate 73 75 Respiratory Rate 14 Blood Pressure 122/65 131/70 Pulse Oximetry 94 BMI result Body Mass Index 24.0 Medications Medications Current Medications Acetaminophen (Acetaminophen 325 Mg Tablet) 650 mg PO Q6H PRN PRN Reason: Headache/Pain Mild Scale (1-3) Last Admin: 12/24/21 16:03 Dose: 650 mg Documented by: Al Hydroxide/Mg Hydroxide (Magnesium Hydrox/Alum Hydrox 30 Ml Oral.Susp) 30 ml PO Q6H PRN PRN Reason: Heartburn/Nausea Last Admin: 12/24/21 18:13 Dose: 30 ml Documented by: Clonidine HCl (Clonidine Hcl 0.1 Mg Tablet) 0.1 mg PO TID [facility]; Protocol Last Admin: 12/26/21 08:45 Dose: 0.1 mg Documented by: Hydroxyzine HCl (Hydroxyzine Hcl 25 Mg Tablet) 25 mg PO BEDTIME PRN PRN Reason: Anxiety Last Admin: 12/25/21 23:09 Dose: 25 mg Documented by: Lisinopril (Lisinopril 20 Mg Tablet) 20 mg PO DAILY [facility]; Protocol Last Admin: 12/26/21 08:46 Dose: 20 mg Documented by: Magnesium Hydroxide (Milk Of Magnesia 30 Ml Oral.Susp) 30 ml PO DAILY PRN PRN Reason: Constipation Methadone HCl (Methadone Hcl 20 Mg/2 Ml Oral.Conc) 10 mg PO TID [facility] Last Admin: 12/26/21 08:46 Dose: 10 mg Documented by: Mexiletine HCl (Mexiletine Hcl 150 Mg Capsule) 150 mg PO Q6H [facility] Last Admin: 12/26/21 11:38 Dose: 150 mg Documented by: Mirtazapine (Mirtazapine 30 Mg Tablet) 30 mg PO BEDTIME [facility] Last Admin: 12/25/21 20:31 Dose: 30 mg Documented by: Nifedipine (Nifedipine Er 60 Mg Tab.Er.24) 60 mg PO DAILY [facility]; Protocol Last Admin: 12/26/21 08:46 Dose: 60 mg Documented by: Oxycodone HCl (Oxycodone Hcl Immed Release 5 Mg Tablet) 20 mg PO Q6H PRN PRN Reason: Pain, Moderate (Pain Scale 4-6 Stop: 12/26/21 20:45 Last Admin: 12/26/21 08:50 Dose: 20 mg Documented by: Trazodone HCl (Trazodone Hcl 50 Mg Tablet) 50 mg PO BEDTIME PRN PRN Reason: Insomnia Last Admin: 12/25/21 23:09 Dose: 50 mg Documented by: Allergies Allergies Allergy/AdvReac Type Severity Reaction Status Date / Time ergotamine [ERGOTAMINE] AdvReac Severe NAUSEA Verified 12/20/21 20:55 Assessment & Plan Assessment & Plan (1) Hypertension: Status: Acute Code(s): I10 - Essential (primary) hypertension (2) Opioid abuse: Status: Acute Code(s): F11.10 - Opioid abuse, uncomplicated (3) Depressive disorder: Status: Acute Code(s): F32.A - Depression, unspecified (4) Chronic pain: Status: Acute Code(s): G89.29 - Other chronic pain Plan 66yo M with HTN, pacemaker, chronic pain admitted to [facility] after suicidal gestures. Routine hospitalist consult requested per protocol. The patient carries a diagnosis of opiate use disorder and depressive symptoms. Plan 1. Keep Remeron titrated up to 30 mg po qhs 2. Consult with pain management sings the patient states that he use methadone due to pain not due to opiate dependence. The patient is dependent to opioids for several years. 3. Get more collateral. I spent minutes with the patient and/or on the patient floor today, greater than?50% of which was spent counseling/coordinating care. Reason for contiued inpatient stay Substantial Risk for: inability to function, rapid decompensation and med/psych decompensation
[2021-12-26 14:49] VITALS: BP 128/67; PULSE 72; RESP 16; O2SAT 95
[2021-12-26 18:00] VITALS: BP 147/84; PULSE 71; RESP 15; TEMP 36.3; O2SAT 95
[2021-12-26] MEDS: Mirtazapine 30 MG TABLET PO (21:44)
[2021-12-27 06:00] VITALS: BP 147/84; PULSE 71; RESP 15; TEMP 36.3; O2SAT 95
[2021-12-27] MEDS: cloNIDine HCL 0.1 MG TABLET PO ×3 (08:27→20:57)
[2021-12-27] MEDS: lisinopriL 20 MG TABLET PO (08:28)
[2021-12-27] MEDS: methADONE HCl 20 MG/2 ML ORAL.CONC 10 MG PO ×3 (08:29→20:56)
[2021-12-27] MEDS: NIFEdipine ER 60 MG TAB.ER.24 PO (08:29)
[2021-12-27] MEDS: Magnesium Hydrox/Alum Hydrox 30 ML ORAL.SUSP PO (13:25)
--- NOTE | 2021-12-27 15:09 | HO.PSYCHPN ---
Subjective Subjective Date of Service: 12/27/21 Reason For Visit: MDD Recurrent Episode Moderate Unspec Anxiety D/O Subjective Notes: Conditional Voluntary Interim History: The nursing staff reports the patient has been cheerful and even that he states that he wants to kill himself after being discharged from here. He has shown drug-seeking behavior due to his opioid dependence. I had a conversation over the phone with the doctor on pain management and unfortunately, since the patient is addicted to opioids he is not a candidate for pain management per se. We discussed the case with the substance abuse team and probably his best chance will be to get treatment on a methadone clinic. Yesterday we had a phone call from his primary care physician Dr. Travis brantley at [phone] and he reported a long history of opiate dependence and poor compliance with treatment who usually to not engage in psychiatric treatment. On interview the patient reported that several years ago he was doing very well with methadone and he is in to see us today with 80 of being referred back to the service. He agreed to change med on up to 30 mg once a day. Mental Status Exam Mental Status Exam Patient Appearance: Well Grooomed Patient Orientation: Person and Situation Level of Consciousness: Awake Patient Behavior: Appropriate Mood Description: Depressed Affect Description: Constricted Patient Cognition Impaired: No Speech Pattern: Clear Hallucinations: None Delusions: Not Present Thought Process: Linear Thought Content: positive for Intact Judgement: Fair Diagnostics Vital Signs (24Hr): Vital Signs - 24 hr 12/26/21 18:00 12/27/21 06:00 Temperature 97.3 F 97.3 F Pulse Rate 71 71 Respiratory Rate 15 15 Blood Pressure 147/84 H 147/84 H Pulse Oximetry 95 95 BMI result Body Mass Index 24.0 Medications Medications Current Medications Acetaminophen (Acetaminophen 325 Mg Tablet) 650 mg PO Q6H PRN PRN Reason: Headache/Pain Mild Scale (1-3) Last Admin: 12/24/21 16:03 Dose: 650 mg Documented by: Al Hydroxide/Mg Hydroxide (Magnesium Hydrox/Alum Hydrox 30 Ml Oral.Susp) 30 ml PO Q6H PRN PRN Reason: Heartburn/Nausea Last Admin: 12/27/21 13:25 Dose: 30 ml Documented by: Clonidine HCl (Clonidine Hcl 0.1 Mg Tablet) 0.1 mg PO TID [place]; Protocol Last Admin: 12/27/21 14:47 Dose: 0.1 mg Documented by: Hydroxyzine HCl (Hydroxyzine Hcl 25 Mg Tablet) 25 mg PO BEDTIME PRN PRN Reason: Anxiety Last Admin: 12/25/21 23:09 Dose: 25 mg Documented by: Lisinopril (Lisinopril 20 Mg Tablet) 20 mg PO DAILY [facility]; Protocol Last Admin: 12/27/21 08:28 Dose: 20 mg Documented by: Magnesium Hydroxide (Milk Of Magnesia 30 Ml Oral.Susp) 30 ml PO DAILY PRN PRN Reason: Constipation Methadone HCl (Methadone Hcl 20 Mg/2 Ml Oral.Conc) 10 mg PO TID [facility] Last Admin: 12/27/21 14:47 Dose: 10 mg Documented by: Mexiletine HCl (Mexiletine Hcl 150 Mg Capsule) 150 mg PO Q6H [facility] Last Admin: 12/27/21 13:31 Dose: 150 mg Documented by: Mirtazapine (Mirtazapine 30 Mg Tablet) 30 mg PO BEDTIME [facility] Last Admin: 12/26/21 21:44 Dose: 30 mg Documented by: Nifedipine (Nifedipine Er 60 Mg Tab.Er.24) 60 mg PO DAILY [facility]; Protocol Last Admin: 12/27/21 08:29 Dose: 60 mg Documented by: Oxycodone HCl (Oxycodone Hcl Immed Release 5 Mg Tablet) 20 mg PO Q6H PRN PRN Reason: Pain, Moderate (Pain Scale 4-6 Trazodone HCl (Trazodone Hcl 50 Mg Tablet) 50 mg PO BEDTIME PRN PRN Reason: Insomnia Last Admin: 12/25/21 23:09 Dose: 50 mg Documented by: Allergies Allergies Allergy/AdvReac Type Severity Reaction Status Date / Time ergotamine [ERGOTAMINE] AdvReac Severe NAUSEA Verified 12/20/21 20:55 Assessment & Plan Assessment & Plan (1) Hypertension: Status: Acute Code(s): I10 - Essential (primary) hypertension (2) Opioid abuse: Status: Acute Code(s): F11.10 - Opioid abuse, uncomplicated (3) Depressive disorder: Status: Acute Code(s): F32.A - Depression, unspecified (4) Chronic pain: Status: Acute Code(s): G89.29 - Other chronic pain Plan 66yo M with HTN, pacemaker, chronic pain admitted to [facility] after suicidal gestures. Routine hospitalist consult requested per protocol. The patient carries a diagnosis of opiate use disorder and depressive symptoms. Plan 1. Keep Remeron titrated up to 30 mg po qhs 2. Consult with pain management sings the patient states that he use methadone due to pain not due to opiate dependence. The patient is dependent to opioids for several years. Pain management reported that he is not a candidate at this moment. His primary care physician called and provide more information and he was surprised that he is accepting psychiatric treatment. He agreed to change methadone up to 30 mg once a day. 3. Get more collateral. I spent minutes with the patient and/or on the patient floor today, greater than?50% of which was spent counseling/coordinating care. Reason for contiued inpatient stay Substantial Risk for: inability to function, rapid decompensation and med/psych decompensation
[2021-12-27] MEDS: oxyCODONE HCl Immed Release 5 MG TABLET 20 MG PO (15:11)
[2021-12-27] MEDS: Mirtazapine 30 MG TABLET PO (20:56)
--- NOTE | 2021-12-28 01:34 | PC.NURSE ---
Pt spent quiet a few hours laughing and conversing while watching tv with another pt this shift. Pt was pleasant with staff as well. Pt reported no SI thoughts this evening.
[2021-12-28 07:30] VITALS: BP 144/81; PULSE 77; RESP 18; TEMP 37.1; O2SAT 98
[2021-12-28] MEDS: NIFEdipine ER 60 MG TAB.ER.24 PO (08:54)
[2021-12-28] MEDS: lisinopriL 20 MG TABLET PO (08:55)
[2021-12-28] MEDS: cloNIDine HCL 0.1 MG TABLET PO ×3 (08:56→20:15)
[2021-12-28] MEDS: methADONE HCl 20 MG/2 ML ORAL.CONC 30 MG PO (08:56)
--- NOTE | 2021-12-28 09:09 | HO.PSYCHPN ---
Subjective Subjective Date of Service: 12/28/21 Reason For Visit: MDD Recurrent Episode Moderate Unspec Anxiety D/O Subjective Notes: Conditional Voluntary Healthcare Proxy: No Guardianship: No Interim History: pt has been depressed withdrawn Medication Compliance: Yes Attending Groups: Yes Mental Status Exam Mental Status Exam Patient Appearance: Well Grooomed Patient Orientation: Person and Situation Level of Consciousness: Awake Patient Behavior: Appropriate Mood Description: Depressed Affect Description: Constricted and Depressed Patient Cognition Impaired: No Speech Pattern: Clear Hallucinations: None Delusions: Not Present Thought Process: Linear Thought Content: positive for Intact Depressive Symptoms: Increased Anxiety Judgement: Fair Diagnostics Vital Signs (24Hr): Vital Signs - 24 hr 12/28/21 07:30 Temperature 98.8 F Pulse Rate 77 Respiratory Rate 18 Blood Pressure 144/81 H Pulse Oximetry 98 BMI result Body Mass Index 24.0 Medications Medications Current Medications Acetaminophen (Acetaminophen 325 Mg Tablet) 650 mg PO Q6H PRN PRN Reason: Headache/Pain Mild Scale (1-3) Last Admin: 12/24/21 16:03 Dose: 650 mg Documented by: Al Hydroxide/Mg Hydroxide (Magnesium Hydrox/Alum Hydrox 30 Ml Oral.Susp) 30 ml PO Q6H PRN PRN Reason: Heartburn/Nausea Last Admin: 12/27/21 13:25 Dose: 30 ml Documented by: Clonidine HCl (Clonidine Hcl 0.1 Mg Tablet) 0.1 mg PO TID [facility]; Protocol Last Admin: 12/28/21 08:56 Dose: 0.1 mg Documented by: Hydroxyzine HCl (Hydroxyzine Hcl 25 Mg Tablet) 25 mg PO BEDTIME PRN PRN Reason: Anxiety Last Admin: 12/25/21 23:09 Dose: 25 mg Documented by: Lisinopril (Lisinopril 20 Mg Tablet) 20 mg PO DAILY [facility]; Protocol Last Admin: 12/28/21 08:55 Dose: 20 mg Documented by: Magnesium Hydroxide (Milk Of Magnesia 30 Ml Oral.Susp) 30 ml PO DAILY PRN PRN Reason: Constipation Methadone HCl (Methadone Hcl 20 Mg/2 Ml Oral.Conc) 30 mg PO DAILY [facility] Last Admin: 12/28/21 08:56 Dose: 30 mg Documented by: Mexiletine HCl (Mexiletine Hcl 150 Mg Capsule) 150 mg PO Q6H [facility] Last Admin: 12/27/21 23:49 Dose: 150 mg Documented by: Mirtazapine (Mirtazapine 30 Mg Tablet) 30 mg PO BEDTIME [facility] Last Admin: 12/27/21 20:56 Dose: 30 mg Documented by: Nifedipine (Nifedipine Er 60 Mg Tab.Er.24) 60 mg PO DAILY [place]; Protocol Last Admin: 12/28/21 08:54 Dose: 60 mg Documented by: Oxycodone HCl (Oxycodone Hcl Immed Release 5 Mg Tablet) 20 mg PO Q6H PRN PRN Reason: Pain, Moderate (Pain Scale 4-6 Last Admin: 12/27/21 15:11 Dose: 20 mg Documented by: Trazodone HCl (Trazodone Hcl 50 Mg Tablet) 50 mg PO BEDTIME PRN PRN Reason: Insomnia Last Admin: 12/25/21 23:09 Dose: 50 mg Documented by: Allergies Allergies Allergy/AdvReac Type Severity Reaction Status Date / Time ergotamine [ERGOTAMINE] AdvReac Severe NAUSEA Verified 12/20/21 20:55 Assessment & Plan Assessment & Plan (1) Hypertension: Status: Acute Code(s): I10 - Essential (primary) hypertension (2) Opioid abuse: Status: Acute Code(s): F11.10 - Opioid abuse, uncomplicated (3) Depressive disorder: Status: Acute Code(s): F32.A - Depression, unspecified (4) Chronic pain: Status: Acute Code(s): G89.29 - Other chronic pain Plan 66yo M with HTN, pacemaker, chronic pain admitted to [facility] after suicidal gestures. Routine hospitalist consult requested per protocol. The patient carries a diagnosis of opiate use disorder and depressive symptoms. Plan 1. Keep Remeron titrated up to 30 mg po qhs pain management progran not available when pt on methadone I spent minutes with the patient and/or on the patient floor today, greater than?50% of which was spent counseling/coordinating care. Reason for contiued inpatient stay Substantial Risk for: harm to self
[2021-12-28] MEDS: Mirtazapine 30 MG TABLET PO (20:15)
[2021-12-28] MEDS: oxyCODONE HCl Immed Release 5 MG TABLET 20 MG PO (20:18)
[2021-12-28 20:34] VITALS: BP 151/58; PULSE 93; RESP 18; TEMP 36.4; O2SAT 99
[2021-12-29] MEDS: oxyCODONE HCl Immed Release 5 MG TABLET 20 MG PO (02:53)
[2021-12-29 08:00] VITALS: BP 170/80; PULSE 82; RESP 17; TEMP 36.4; O2SAT 96
[2021-12-29] MEDS: lisinopriL 20 MG TABLET PO (08:50)
[2021-12-29] MEDS: NIFEdipine ER 60 MG TAB.ER.24 PO (08:50)
[2021-12-29] MEDS: cloNIDine HCL 0.1 MG TABLET PO ×3 (08:50→21:59)
[2021-12-29] MEDS: methADONE HCl 20 MG/2 ML ORAL.CONC 30 MG PO (08:51)
[2021-12-29 10:10] VITALS: BP 140/79; PULSE 80
[2021-12-29 13:45] VITALS: BP 106/61; PULSE 74
[2021-12-29] MEDS: DULoxetine HCl 20 MG CAPSULE.DR PO (13:57)
--- NOTE | 2021-12-29 19:25 | HO.PSYCHPN ---
Subjective Subjective Date of Service: 12/29/21 Reason For Visit: MDD Recurrent Episode Moderate Unspec Anxiety D/O Subjective Notes: Conditional Voluntary Healthcare Proxy: No Guardianship: No Medical Problems Affecting Mental Status: Yes Interim History: CHRONIC PAIN Medication Compliance: Yes Attending Groups: Yes Review of Systems Medical Review of Systems: unchanged Mental Status Exam Mental Status Exam Patient Appearance: Well Grooomed Patient Orientation: Person and Situation Level of Consciousness: Awake Patient Behavior: Appropriate Mood Description: Depressed and Apprehensive Affect Description: Constricted and Depressed Patient Cognition Impaired: No Speech Pattern: Clear Hallucinations: None Delusions: Not Present Thought Process: Linear Thought Content: positive for Intact Depressive Symptoms: Increased Anxiety Judgement: Fair Judgement and Insight: GENERAL SENSE OF HOPELESSNESS HELPLESSNESS PASSIVE SI HOW LIVE WITH CHRONIC PAIN LIMITED FINANCES Diagnostics Vital Signs (24Hr): Vital Signs - 24 hr 12/28/21 20:34 12/29/21 08:00 12/29/21 10:10 Temperature 97.6 F 97.5 F Pulse Rate 93 82 80 Respiratory Rate 18 17 Blood Pressure 151/58 H 170/80 H 140/79 H Pulse Oximetry 99 96 12/29/21 13:45 Temperature Pulse Rate 74 Respiratory Rate Blood Pressure 106/61 Pulse Oximetry BMI result Body Mass Index 24.0 Medications Medications Current Medications Acetaminophen (Acetaminophen 325 Mg Tablet) 650 mg PO Q6H PRN PRN Reason: Headache/Pain Mild Scale (1-3) Last Admin: 12/24/21 16:03 Dose: 650 mg Documented by: Al Hydroxide/Mg Hydroxide (Magnesium Hydrox/Alum Hydrox 30 Ml Oral.Susp) 30 ml PO Q6H PRN PRN Reason: Heartburn/Nausea Last Admin: 12/27/21 13:25 Dose: 30 ml Documented by: Clonidine HCl (Clonidine Hcl 0.1 Mg Tablet) 0.1 mg PO TID [facility]; Protocol Last Admin: 12/29/21 13:57 Dose: 0.1 mg Documented by: Duloxetine HCl (Duloxetine Hcl 20 Mg Capsule.) 20 mg PO DAILY [facility] Last Admin: 12/29/21 13:57 Dose: 20 mg Documented by: Hydroxyzine HCl (Hydroxyzine Hcl 25 Mg Tablet) 25 mg PO BEDTIME PRN PRN Reason: Anxiety Last Admin: 12/25/21 23:09 Dose: 25 mg Documented by: Lisinopril (Lisinopril 20 Mg Tablet) 20 mg PO DAILY [facility]; Protocol Last Admin: 12/29/21 08:50 Dose: 20 mg Documented by: Magnesium Hydroxide (Milk Of Magnesia 30 Ml Oral.Susp) 30 ml PO DAILY PRN PRN Reason: Constipation Methadone HCl (Methadone Hcl 20 Mg/2 Ml Oral.Conc) 30 mg PO DAILY [facility] Last Admin: 12/29/21 08:51 Dose: 30 mg Documented by: Mexiletine HCl (Mexiletine Hcl 150 Mg Capsule) 150 mg PO Q6H [facility] Last Admin: 12/29/21 12:45 Dose: 150 mg Documented by: Mirtazapine (Mirtazapine 30 Mg Tablet) 30 mg PO BEDTIME [facility] Last Admin: 12/28/21 20:15 Dose: 30 mg Documented by: Nifedipine (Nifedipine Er 60 Mg Tab.Er.24) 60 mg PO DAILY [facility]; Protocol Last Admin: 12/29/21 08:50 Dose: 60 mg Documented by: Oxycodone HCl (Oxycodone Hcl Immed Release 5 Mg Tablet) 20 mg PO Q6H PRN PRN Reason: Pain, Moderate (Pain Scale 4-6 Last Admin: 12/29/21 02:53 Dose: 20 mg Documented by: Trazodone HCl (Trazodone Hcl 50 Mg Tablet) 50 mg PO BEDTIME PRN PRN Reason: Insomnia Last Admin: 12/25/21 23:09 Dose: 50 mg Documented by: Allergies Allergies Allergy/AdvReac Type Severity Reaction Status Date / Time ergotamine [ERGOTAMINE] AdvReac Severe NAUSEA Verified 12/20/21 20:55 Assessment & Plan Assessment & Plan (1) Hypertension: Status: Acute Code(s): I10 - Essential (primary) hypertension (2) Opioid abuse: Status: Acute Code(s): F11.10 - Opioid abuse, uncomplicated (3) Depressive disorder: Status: Acute Code(s): F32.A - Depression, unspecified (4) Chronic pain: Status: Acute Code(s): G89.29 - Other chronic pain Plan 66yo M with HTN, pacemaker, chronic pain [facility] after suicidal gestures. Routine hospitalist consult requested per protocol. The patient carries a diagnosis of opiate use disorder and depressive symptoms. Plan 1. Keep Remeron titrated up to 30 mg po qhs pain management progran not available when pt on methadone Start Cymbalta depression chronic pain patient may be a candidate for spinal stimulator I spent ____27__ minutes with the patient and/or on the patient floor today, greater than?50% of which was spent counseling/coordinating care. Patient educated on: diagnosis, medication risk/benefits, substance abuse, therapeutic strategies and medical condition Informed Consent: understands Reason for contiued inpatient stay Substantial Risk for: harm to self
[2021-12-29] MEDS: Mirtazapine 30 MG TABLET PO (21:59)
[2021-12-29 22:08] VITALS: BP 132/69; PULSE 69; RESP 18; TEMP 37.1; O2SAT 94
[2021-12-30] MEDS: oxyCODONE HCl Immed Release 5 MG TABLET 20 MG PO ×4 (02:13→21:33)
[2021-12-30] MEDS: Acetaminophen 325 MG TABLET 650 MG PO (02:14)
[2021-12-30 08:00] VITALS: BP 168/84; PULSE 75; RESP 16; TEMP 37; O2SAT 96
[2021-12-30] MEDS: NIFEdipine ER 60 MG TAB.ER.24 PO (09:21)
[2021-12-30] MEDS: DULoxetine HCl 20 MG CAPSULE.DR PO (09:22)
[2021-12-30] MEDS: lisinopriL 20 MG TABLET PO (09:22)
[2021-12-30] MEDS: cloNIDine HCL 0.1 MG TABLET PO ×3 (09:22→21:36)
[2021-12-30] MEDS: methADONE HCl 20 MG/2 ML ORAL.CONC 30 MG PO (09:23)
--- NOTE | 2021-12-30 13:00 | P.PNPSI_ITS ---
Subjective Subjective Date of Service: 12/30/21 Reason For Visit: MDD Recurrent Episode Moderate Unspec Anxiety D/O Subjective Notes: Conditional Voluntary Interim History: The nursing staff reported the patient has shown drug-seeking behavior but he is able to contract for safety. The foster care social worker reported that there on a waiting list for housing. On interview, the patient reports that he is on chronic pain but he is doing fairly well at baseline no safety concerns. Mental Status Exam Mental Status Exam Patient Appearance: Well Grooomed Patient Orientation: Person and Situation Level of Consciousness: Awake Patient Behavior: Cooperative Mood Description: Depressed Affect Description: Constricted Patient Cognition Impaired: No Ability to Follow Directions: Good Speech Pattern: Clear Hallucinations: None Delusions: Not Present Thought Process: Linear Thought Content: positive for Intact Judgement: Fair Diagnostics Vital Signs (24Hr): Vital Signs - 24 hr 12/29/21 13:45 12/29/21 22:08 12/30/21 08:00 Temperature 98.7 F 98.6 F Pulse Rate 74 69 75 Respiratory Rate 18 16 Blood Pressure 106/61 132/69 168/84 H Pulse Oximetry 94 96 BMI result Body Mass Index 24.0 Medications Medications Current Medications Acetaminophen (Acetaminophen 325 Mg Tablet) 650 mg PO Q6H PRN PRN Reason: Headache/Pain Mild Scale (1-3) Last Admin: 12/30/21 02:14 Dose: 650 mg Documented by: Al Hydroxide/Mg Hydroxide (Magnesium Hydrox/Alum Hydrox 30 Ml Oral.Susp) 30 ml PO Q6H PRN PRN Reason: Heartburn/Nausea Last Admin: 12/27/21 13:25 Dose: 30 ml Documented by: Clonidine HCl (Clonidine Hcl 0.1 Mg Tablet) 0.1 mg PO TID [place]; Protocol Last Admin: 12/30/21 09:22 Dose: 0.1 mg Documented by: Duloxetine HCl (Duloxetine Hcl 20 Mg Capsule.Dr) 20 mg PO DAILY [place] Last Admin: 12/30/21 09:22 Dose: 20 mg Documented by: Hydroxyzine HCl (Hydroxyzine Hcl 25 Mg Tablet) 25 mg PO BEDTIME PRN PRN Reason: Anxiety Last Admin: 12/25/21 23:09 Dose: 25 mg Documented by: Lisinopril (Lisinopril 20 Mg Tablet) 20 mg PO DAILY [place]; Protocol Last Admin: 12/30/21 09:22 Dose: 20 mg Documented by: Magnesium Hydroxide (Milk Of Magnesia 30 Ml Oral.Susp) 30 ml PO DAILY PRN PRN Reason: Constipation Methadone HCl (Methadone Hcl 20 Mg/2 Ml Oral.Conc) 30 mg PO DAILY [facility] Last Admin: 12/30/21 09:23 Dose: 30 mg Documented by: Mexiletine HCl (Mexiletine Hcl 150 Mg Capsule) 150 mg PO Q6H [facility] Last Admin: 12/30/21 09:23 Dose: 150 mg Documented by: Mirtazapine (Mirtazapine 30 Mg Tablet) 30 mg PO BEDTIME [facility] Last Admin: 12/29/21 21:59 Dose: 30 mg Documented by: Nifedipine (Nifedipine Er 60 Mg Tab.Er.24) 60 mg PO DAILY [facility]; Protocol Last Admin: 12/30/21 09:21 Dose: 60 mg Documented by: Oxycodone HCl (Oxycodone Hcl Immed Release 5 Mg Tablet) 20 mg PO Q6H PRN PRN Reason: Pain, Moderate (Pain Scale 4-6 Last Admin: 12/30/21 09:22 Dose: 20 mg Documented by: Trazodone HCl (Trazodone Hcl 50 Mg Tablet) 50 mg PO BEDTIME PRN PRN Reason: Insomnia Last Admin: 12/25/21 23:09 Dose: 50 mg Documented by: Allergies Allergies Allergy/AdvReac Type Severity Reaction Status Date / Time ergotamine [ERGOTAMINE] AdvReac Severe NAUSEA Verified 12/20/21 20:55 Assessment & Plan Assessment & Plan (1) Hypertension: Status: Acute Code(s): I10 - Essential (primary) hypertension (2) Opioid abuse: Status: Acute Code(s): F11.10 - Opioid abuse, uncomplicated (3) Depressive disorder: Status: Acute Code(s): F32.A - Depression, unspecified (4) Chronic pain: Status: Acute Code(s): G89.29 - Other chronic pain Plan 66yo M with HTN, pacemaker, chronic pain admitted to [facility] after suicidal gestures. Routine hospitalist consult requested per protocol. The patient carries a diagnosis of opiate use disorder and depressive symptoms. Plan 1. Keep Remeron titrated up to 30 mg po qhs pain management progran not available when pt on methadone Start Cymbalta depression chronic pain patient may be a candidate for spinal stimulator I spent minutes with the patient and/or on the patient floor today, greater than?50% of which was spent counseling/coordinating care. Patient educated on: diagnosis and therapeutic strategies Informed Consent: understands Reason for contiued inpatient stay Substantial Risk for: inability to function, rapid decompensation and med/psych decompensation
[2021-12-30 18:00] VITALS: BP 135/68; PULSE 70; RESP 14; TEMP 36.6; O2SAT 96
[2021-12-30] MEDS: hydrOXYzine HCL 25 MG TABLET PO (21:35)
[2021-12-30] MEDS: Mirtazapine 30 MG TABLET PO (22:16)
[2021-12-31] MEDS: oxyCODONE HCl Immed Release 5 MG TABLET 20 MG PO ×2 (05:18→15:10)
[2021-12-31 08:00] VITALS: BP 165/81; PULSE 70; TEMP 37.5; O2SAT 95
[2021-12-31] MEDS: methADONE HCl 20 MG/2 ML ORAL.CONC 30 MG PO (08:44)
[2021-12-31] MEDS: DULoxetine HCl 20 MG CAPSULE.DR PO (08:46)
[2021-12-31] MEDS: cloNIDine HCL 0.1 MG TABLET PO ×3 (08:46→20:33)
[2021-12-31] MEDS: lisinopriL 20 MG TABLET PO (08:46)
[2021-12-31] MEDS: NIFEdipine ER 60 MG TAB.ER.24 PO (09:52)
--- NOTE | 2021-12-31 11:27 | P.PNPSI_ITS ---
Subjective Subjective Date of Service: 12/31/21 Reason For Visit: MDD Recurrent Episode Moderate Unspec Anxiety D/O Subjective Notes: Conditional Voluntary Interim History: The nursing staff reported the patient's pain is better control with methadone on a single doses no morning. The patient's mood does not have correlation with the observed affect, even though that he claims to be depressed his affect is full and appropriate and he is cheerful on interview. On interview, the patient denies new symptoms he feels that he has chronic pain and there is nothing that we can do for him. No safety concerns at this moment. Mental Status Exam Mental Status Exam Patient Appearance: Well Grooomed Patient Orientation: Person and Situation Level of Consciousness: Awake and Appropriate Patient Behavior: Talkative Mood Description: Cheerful Affect Description: Appropriate Patient Cognition Impaired: No Ability to Follow Directions: Good Speech Pattern: Appropriate Hallucinations: None Delusions: Not Present Thought Process: Linear Thought Content: positive for Circumstantial Judgement: Fair Diagnostics Vital Signs (24Hr): Vital Signs - 24 hr 12/30/21 18:00 12/31/21 08:00 Temperature 97.9 F 99.5 F Pulse Rate 70 70 Respiratory Rate 14 Blood Pressure 135/68 165/81 H Pulse Oximetry 96 95 BMI result Body Mass Index 24.0 Medications Medications Current Medications Acetaminophen (Acetaminophen 325 Mg Tablet) 650 mg PO Q6H PRN PRN Reason: Headache/Pain Mild Scale (1-3) Last Admin: 12/30/21 02:14 Dose: 650 mg Documented by: Al Hydroxide/Mg Hydroxide (Magnesium Hydrox/Alum Hydrox 30 Ml Oral.Susp) 30 ml PO Q6H PRN PRN Reason: Heartburn/Nausea Last Admin: 12/27/21 13:25 Dose: 30 ml Documented by: Clonidine HCl (Clonidine Hcl 0.1 Mg Tablet) 0.1 mg PO TID [facility]; Protocol Last Admin: 12/31/21 08:46 Dose: 0.1 mg Documented by: Duloxetine HCl (Duloxetine Hcl 20 Mg Capsule.) 20 mg PO DAILY [facility] Last Admin: 12/31/21 08:46 Dose: 20 mg Documented by: Hydroxyzine HCl (Hydroxyzine Hcl 25 Mg Tablet) 25 mg PO BEDTIME PRN PRN Reason: Anxiety Last Admin: 12/30/21 21:35 Dose: 25 mg Documented by: Lisinopril (Lisinopril 20 Mg Tablet) 20 mg PO DAILY [facility]; Protocol Last Admin: 12/31/21 08:46 Dose: 20 mg Documented by: Magnesium Hydroxide (Milk Of Magnesia 30 Ml Oral.Susp) 30 ml PO DAILY PRN PRN Reason: Constipation Methadone HCl (Methadone Hcl 20 Mg/2 Ml Oral.Conc) 30 mg PO DAILY [facility] Last Admin: 12/31/21 08:44 Dose: 30 mg Documented by: Mexiletine HCl (Mexiletine Hcl 150 Mg Capsule) 150 mg PO Q6H [facility] Last Admin: 12/31/21 05:17 Dose: 150 mg Documented by: Mirtazapine (Mirtazapine 30 Mg Tablet) 30 mg PO BEDTIME [facility] Last Admin: 12/30/21 22:16 Dose: 30 mg Documented by: Nifedipine (Nifedipine Er 60 Mg Tab.Er.24) 60 mg PO DAILY [facility]; Protocol Last Admin: 12/31/21 09:52 Dose: 60 mg Documented by: Oxycodone HCl (Oxycodone Hcl Immed Release 5 Mg Tablet) 20 mg PO Q6H PRN PRN Reason: Pain, Moderate (Pain Scale 4-6 Last Admin: 12/31/21 05:18 Dose: 20 mg Documented by: Trazodone HCl (Trazodone Hcl 50 Mg Tablet) 50 mg PO BEDTIME PRN PRN Reason: Insomnia Last Admin: 12/25/21 23:09 Dose: 50 mg Documented by: Allergies Allergies Allergy/AdvReac Type Severity Reaction Status Date / Time ergotamine [ERGOTAMINE] AdvReac Severe NAUSEA Verified 12/20/21 20:55 Assessment & Plan Assessment & Plan (1) Hypertension: Status: Acute Code(s): I10 - Essential (primary) hypertension (2) Opioid abuse: Status: Acute Code(s): F11.10 - Opioid abuse, uncomplicated (3) Depressive disorder: Status: Acute Code(s): F32.A - Depression, unspecified (4) Chronic pain: Status: Acute Code(s): G89.29 - Other chronic pain Plan 66yo M with HTN, pacemaker, chronic pain admitted to [facility] after suicidal gestures. Routine hospitalist consult requested per protocol. The patient carries a diagnosis of opiate use disorder and depressive symptoms. Plan 1. Keep Remeron titrated up to 30 mg po qhs pain management progran not available when pt on methadone Start Cymbalta depression chronic pain patient may be a candidate for spinal sti mulator I spent ____20__ minutes with the patient and/or on the patient floor today, greater than?50% of which was spent counseling/coordinating care. Patient educated on: diagnosis and therapeutic strategies Informed Consent: understands Reason for contiued inpatient stay Substantial Risk for: harm to self, inability to function, rapid decompensation and med/psych decompensation
[2021-12-31 18:20] VITALS: BP 148/78; PULSE 86; RESP 16; TEMP 36.5; O2SAT 96
[2021-12-31] MEDS: Mirtazapine 30 MG TABLET PO (20:32)
[2022-01-01] MEDS: oxyCODONE HCl Immed Release 5 MG TABLET 20 MG PO ×2 (03:40→13:00)
[2022-01-01 08:44] VITALS: BP 170/83; PULSE 82; RESP 16; TEMP 36.8; O2SAT 97
[2022-01-01] MEDS: NIFEdipine ER 60 MG TAB.ER.24 PO (09:19)
[2022-01-01] MEDS: methADONE HCl 20 MG/2 ML ORAL.CONC 30 MG PO (09:19)
[2022-01-01] MEDS: DULoxetine HCl 20 MG CAPSULE.DR PO (09:19)
[2022-01-01] MEDS: lisinopriL 20 MG TABLET PO (09:19)
[2022-01-01] MEDS: cloNIDine HCL 0.1 MG TABLET PO (09:19)
--- NOTE | 2022-01-01 11:00 | PM.PSYDC ---
DS: Providers Provider Date of Service: 01/01/22 Date of admission: 12/18/21 14:46 Date of discharge: 01/01/22 Primary care physician: Travis Mcarthur MD Consults: 12/18/21 10:58 Consult to Hospitalist Routine Consulting Provider: Hospitalist Reason For Exam: Direct admission from [facility] 12/26/21 14:36 Consult to Pain Management Routine Consulting Provider: Dom Gonzalez Reason for consultation: chronic pain, dependent on opioids Has provider been notified: Yes DS: Diagnosis Discharge Diagnosis (1) Hypertension: Status: Acute (2) Opioid abuse: Status: Acute (3) Depressive disorder: Status: Acute (4) Chronic pain: Status: Acute DS: Medications Discharge Medications Home Medications: Home Medications Medication Instructions Recorded Confirmed clonidine HCl 0.2 mg tablet 1 tab PO TID 12/18/21 12/18/21 lisinopril 20 mg tablet 1 tab PO DAILY 12/18/21 12/18/21 methadone 10 mg tablet 1 tab PO Q8H PRN 12/18/21 12/18/21 mexiletine 150 mg capsule 1 cap PO Q6H 12/18/21 12/18/21 nifedipine 60 mg tablet,extended 1 tab PO DAILY 12/18/21 12/18/21 release 24 hr Mental Status Exam Mental Status Exam Patient Appearance: Well Grooomed Patient Orientation: Person and Situation Level of Consciousness: Awake Patient Behavior: Cooperative Mood Description: Calm Affect Description: Constricted Patient Cognition Impaired: No Ability to Follow Directions: Good Speech Pattern: Clear Memory Description: Intact Hallucinations: None Delusions: Not Present Thought Content: positive for Intact Judgement: Fair DS: Summary Hospital Course Hospital Course: The patient was admitted into the hospital for suicidal ideation and self-harming behavior in the context of opiate use disorder. Please see HPI of the admission note for further details. On interview, the patient complained of chronic pain and dysphoria he verbalized suicidal ideation but even though that his alleged mood did not have correlation with the observed affect since his affect was full and appropriate and he did not have any neurovegetative symptoms, we started antidepressants. Remeron was started and titrated up to 30 mg with for response and later Cymbalta was added for chronic pain. While in the facility the patient showed drug-seeking behavior and his mood was not in correlation with the observed behavior and affect. We gather collateral information and his primary care physician contact us stating that he has a long history of substance abuse and he has never worked on therapy or psychiatric services. Since there were no safety concerns discharge planning was discussed. Time spent discussing smoking cessation with patient: 3 to 10 minutes Status at Discharge Cognitive/behavioral status at discharge: At baseline Functional status at discharge: independent ambulation Overall status at discharge: patient is back to baseline Time Spent with Patient Time attestation: Total time spent providing and/or coordinating discharge services: Time spent: Less than 30 minutes Discharge Plan Discharge Patient Disposition: Home, Self-Care Discharge Diagnosis: Depressive disorder. Opioid use disorder Referrals: [facility] [Other] - 3-5 Days ([facility] called and informed transplant case manager on phone Bharath of discharge scheduled for tomorrow @ 1 PM and to have services resume including meals on wheels and state home care. [facility] also requested increasing state homecare services and obtaining nailer hand services as well as helping Aaron obtain a new phone.) [facility] station manager [Other] - 3-5 Days ([facility] called case manger and left message informing her of discharge on 01/01/22 @ 1 PM. [facility] requested home visit and informed her Aaron does not have a cell phone, requesting help to obtain a new phone, waiting for return phone call.) [facility] [Other] - 01/07/22 8:00 am ([facility] called and booked ride for 01/07/22 for Aaron to [facility] and play pool with other male peers. There is a $2 charge for transport, van will pick you up at 8 AM and will beep his horn so be ready and waiting outside if possible Aaron.) Travis Mcarthur MD [Primary Care Provider] - 01/06/22 2:00 pm (PCP appointment scheduled for 01/06/22 @ 2:00 PM. Aaron please keep appointment as MD will not be able to continue to prescribe medications if you are a no show.) Discharge Medications: New nifedipine 60 mg Tablet Extended Release 24 Hr 60 mg PO DAILY 30 Days Qty: 30 0RF Protocol: Hold for SBP< HOLD for SBP < : 90 mexiletine 150 mg Capsule 150 mg PO Q6H 30 Days Qty: 120 0RF clonidine HCl 0.1 mg Tablet 0.1 mg PO TID 30 Days Qty: 90 0RF Protocol: Hold for SBP< HOLD for SBP < : 90 lisinopril 20 mg Tablet 20 mg PO DAILY 30 Days Qty: 30 0RF Protocol: Hold for SBP< HOLD for SBP < : 90 mirtazapine 30 mg Tablet 30 mg PO BEDTIME 30 Days Qty: 30 0RF oxycodone 5 mg Tablet 20 mg PO Q6H PRN (Reason: Pain, Moderate (Pain Scale 4-6) 14 Days Qty: 56 0RF duloxetine 20 mg Capsule,Delayed Release(Dr/Ec) 20 mg PO DAILY 30 Days Qty: 30 0RF Continued methadone 10 mg tablet 1 tab PO Q8H PRN (Reason: pain) 14 Days Qty: 42 0RF Discontinued lisinopril 20 mg tablet 1 tab PO DAILY 0RF clonidine HCl 0.2 mg tablet 1 tab PO TID 0RF nifedipine 60 mg tablet extended release 24 hr 1 tab PO DAILY 0RF mexiletine 150 mg capsule 1 cap PO Q6H 0RF Discharge Orders: Discharge Order (Routine); Ordered 01/01/22 Ordered By: Titi Azevedo Diet: advance to usual diet Activity on Discharge: As tolerated Stand Alone Forms: Patient Portal Discharge page Care Plan Goals: Care plan goals achieved Health Concerns: Continue treatment with his regular primary care physician Plan of Treatment: The patient refused outpatient psychiatric services and he will follow services with his outpatient provider. Assessment: Middle-aged male with a long history of opiate use dependence, chronic pain and other comorbidities admitted for suicidal ideation and self-harming behavior, at this moment safe in the community. He shown mostly drug-seeking behavior.
--- NOTE | 2022-01-01 14:21 | PC.NURSE ---
Patient alert and oriented x4. Presents as calm, cooperative and med and care compliant. Patient appropriately dressed for d/c.Expresses readiness for d/c. All discharge instructions reviewed with patient including medications and upcoming appointments with providers. Patient belongings were reviewed and returned to patient. Patient was escorted to front of hospital by staff where he left by taxi.
== END 2022-01-01 14:10 | disposition home or self-care (01) | DRG 885 ==
PROVIDERS: Admitting Provider Psychiatry & Neurology Psychiatry; PCP Internal Medicine; Visit Provider Psychiatry & Neurology Psychiatry
DX: F33.1 Major depressive disorder, recurrent, moderate (principal); R45.851 Suicidal ideations; F11.20 Opioid dependence, uncomplicated; I10 Essential (primary) hypertension; G89.29 Other chronic pain; Z98.1 Arthrodesis status; Z56.0 Unemployment, unspecified; Z23 Encounter for immunization; Z91.52 Personal history of nonsuicidal self-harm; Z95.0 Presence of cardiac pacemaker; Z79.899 Other long term (current) drug therapy
CPT/HCPCS: 90686

== ENCOUNTER 2022-09-03 23:11 | Inpatient (IN) | payer OTHER, SELFPAY ==
[2022-09-03 22:25] VITALS: BP 131/75; PULSE 73; RESP 16; TEMP 36.2; O2SAT 97
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
[2022-09-04 08:01] VITALS: BP 126/58; PULSE 73; RESP 16; TEMP 36.6; O2SAT 96
[2022-09-04 08:59] LABS: Cholesterol 166 mg/dL; HDL Cholesterol 49 mg/dL; LDL Cholesterol Calculated 103 mg/dl; Magnesium 2.3 mg/dL (1.6-2.6); Triglycerides 70 mg/dL
--- NOTE | 2022-09-04 09:00 | ECG_ITS ---
Test Reason : opiate od Blood Pressure : / mmHG Vent. Rate : 095 BPM Atrial Rate : 095 BPM P-R Int : 298 ms QRS Dur : 092 ms QT Int : 348 ms P-R-T Axes : 091 047 017 degrees QTc Int : 437 ms Atrial-paced rhythm with prolonged AV conduction with occasional Premature ventricular complexes Nonspecific T wave abnormality Inferior leads Abnormal ECG When compared with ECG of 20-JUL-2014 08:21, Criteria for Septal infarct are no longer Present Nonspecific T wave abnormality now evident in Inferior leads Referred By: Irina Mckeon Electronically Signed By:JOE TELLO MD
[2022-09-04 09:03] LABS: Estimated Average Glucose 100 mg/dL; Hemoglobin A1c % 5.1 %
[2022-09-04 09:23] LABS: Free T4 (Free Thyroxine) 0.92 ng/dL (0.71-1.85); Thyroid Stimulating Hormone 2.87 uIU/mL (0.32-4.0)
[2022-09-04] MEDS: Acetaminophen 325 MG TABLET 650 MG PO ×3 (09:55→22:56)
[2022-09-04 10:42] LABS: Folate 9.2 ng/mL (> or = 4.0); Vitamin B12 435 pg/mL (200-900)
--- NOTE | 2022-09-04 14:18 | HO.PSYADMNOT ---
HPI Date of Service: 09/04/22 Chief Complaint: Depressive Disorder Sources of Information: patient interviewed, chart reviewed and crisis/core team assessment reviewed HPI Subjective Notes: [place] Warning and Conditional Voluntary Healthcare Proxy: Yes (Yaakov [place] [phone] ) Guardianship: No Medical Problems Affecting Mental Status: Yes Narrative: 67 yo male, hx of chronic pain, depression, with SI, multiple plans. Reports he is unable to get to the pharmacy to get his pain meds (Pharmacy delivers his pain meds). Reports taking exta meds and often running out before refills are due. Wants to make it clear that he is NOT depressed, but is an only child, of parents who were only children, has no family, no children and two wives who have . He is alone, has multiple physical issues including L Hip THR, need for R Hip THR as there is a fracture, 6 ruptured discs with fusion hx and hx of rods in LLLeg which are removed. This pain, loss of support and family has caused him to feel he has no reason to live any longer Past Psychiatric History: IP: This is the first- Hx of [facility] in pt. OP: No. None needed he reports Trials: Cymbalta Medical Evaluation Reviewed: Yes [facility] Medical History Cervical disc herniation HTN (hypertension) Lumbar disc herniation Opioid dependence Pacemaker Thoracic disc herniation Surgical History History of hip replacement History of spinal fusion Family History: Denies Social History: poor social support common disability for more than 20 years, denies having children or any contact with collateral family. Substance History: Denies Trauma History: Losses Diagnostics Vital Signs (24Hr): Vital Signs - 24 hr 09/03/22 22:25 09/04/22 08:01 Temperature 97.1 F 97.8 F Pulse Rate 73 73 Respiratory Rate 16 16 Blood Pressure 131/75 126/58 L Pulse Oximetry 97 96 Oxygen Delivery Method Room Air Room Air Labs Labs: Laboratory Results - last 48 hr 09/04/22 09/04/22 09/04/22 07:52 07:52 07:52 Estimat Average Glucose 100 Hemoglobin A1c % 5.1 Magnesium 2.3 Triglycerides 70 Cholesterol 166 LDL Cholesterol, Calc 103 HDL Cholesterol 49 Vitamin B12 435 Folate 9.2 TSH 2.87 Free T4 0.92 Meds/Allergies Meds Home Medications Medication Instructions Recorded Confirmed Type Milk of Magnesia See Rx Instructions .Route 09/04/22 09/04/22 History .COMPLEX PRN Constipation Miralax 17 PO DAILY 09/04/22 History Narcan 1 mg PO NEEDED PRN Opioid 09/04/22 09/04/22 History Overdose acetaminophen 325 mg tablet 650 mg PO Q6H PRN Pain 09/04/22 09/04/22 History (Tylenol) clonidine HCl 0.1 mg tablet 0.1 mg PO TID 09/04/22 09/04/22 History docusate sodium 100 mg capsule 100 mg PO TID 09/04/22 09/04/22 History (Colace) lisinopril 20 mg tablet 5 mg PO DAILY 09/04/22 09/04/22 History methadone 10 mg tablet 5 mg PO TID 09/04/22 09/04/22 History mexiletine 150 mg capsule 150 mg PO QID 09/04/22 09/04/22 History naloxone 1 mg/mL injection syringe mg 09/04/22 History nifedipine 60 mg tablet,extended 90 mg PO DAILY 09/04/22 09/04/22 History release 24 hr ondansetron 4 mg disintegrating 4 mg PO Q8H PRN Nausea And Vomiting 09/04/22 09/04/22 History tablet oxycodone 20 Q8-10H 09/04/22 History oxycodone 5 mg tablet 10 mg PO BID 09/04/22 09/04/22 History Allergies Allergies Allergy/AdvReac Type Severity Reaction Status Date / Time ergotamine [ERGOTAMINE] AdvReac Severe NAUSEA Verified 12/20/21 20:55 Mental Status Exam Mental Status Exam Patient Appearance: Fatigued Patient Orientation: Person, Place, Time and Situation Level of Consciousness: Alert Patient Behavior: Talkative, Cooperative and Good Eye Contact Affect Description: Depressed and Flat Patient Cognition Impaired: Yes Ability to Follow Directions: Good Speech Pattern: Spontaneous Speech Memory Description: Remote Impaired Hallucinations: None Delusions: Not Present Thought Process: Rumination Thought Content: positive for Circumstantial, positive for Perseveration, positive for Preoccupation and positive for Suicidal Ideation Depressive Symptoms: Increased Irritability, Thoughts of /Suicide and Difficulty Concentrating Judgement: Poor Assessment & Plan Assessment & Plan (1) Chronic pain: Status: Acute Code(s): G89.29 - Other chronic pain (2) Depressive disorder: Status: Acute Code(s): F32.A - Depression, unspecified (3) Opioid abuse: Status: Acute Code(s): F11.10 - Opioid abuse, uncomplicated Plan 67 yo male with chronic pain, multiple life losses and minimal supports, opiate dependence and recent SI with multiple plans due to poor pain control. Pt also exhibits some sx of MCI which his PCP, who will be terminating with him in October asks that we evaluate. Plan: Re-establish regime Collateral contact Dementia work up vs delirium from skilled nursing narcotic use. Patient educated on: diagnosis, medication risk/benefits, therapeutic strategies and medical condition Informed Consent: further education needed Reason for continued inpatient stay Substantial Risk for: harm to self and med/psych decompensation
[2022-09-04] MEDS: oxyCODONE HCl Immed Release 5 MG TABLET 20 MG PO (14:40)
--- NOTE | 2022-09-04 15:59 | HO.PM.IMCN ---
History of Present Illness Data of Consult Service Date: 09/04/22 Requesting physician: Jose Eduardo Cristobal Primary Care Provider: Travis Mcarthur MD [facility] Reason for consult: medical H&P 65-year-old male with history of hypertension, history of arrhythmia with pacemaker in place, depression, and chronic pain disorder related to multiple herniated discs in the cervical, thoracic, and lumbar spine with history of lumbar spine fusion at C5-C6 as well as multiple jaw surgeries on oxycodone and methadone admitted to Psychiatry. Patient states that the only reason he is depressed is due to uncontrolled pain levels. He has follow-up with pain management in the past and currently his PCPs managing his oxycodone methadone. Has a history of IV heroin abuse and states he will still snort this occasionally due to uncontrolled pain but has not had any regular boot use in about 30 years. He states that he has not had his pain medications since being admitted and is in severe pain. Review of Systems Review of Systems: General: No fevers, malaise, unintentional weight loss HEENT: No blurred vision, diplopia. No sore throat, nasal congestion, rhinorrhea, sinus pain, ear pain Cardiovascular: No chest pain, palpitations, or leg edema Respiratory: No shortness of breath, wheezing, cough GI: No abdominal pain, nausea, vomiting, diarrhea, constipation, melena, hematochezia : No dysuria, hematuria, increased urinary frequency, decreased urinary output MSK:+back pain, +neck pain Neuro: +headaches. No weakness, paresthesias Skin: No rashes or lesions [facility] Medical History Cervical disc herniation HTN (hypertension) Lumbar disc herniation Opioid dependence Pacemaker Thoracic disc herniation Family History Mother HTN (hypertension) CHF (congestive heart failure) Surgical History History of hip replacement History of spinal fusion Social History Household Members: Other Housing: House Do you presently have visiting nurse or other home services: Yes (Meals on Wheels) Patient Tobacco Use Status: Never used Tobacco Smoked in Last 30 Days: No Patient Given Instructions on How to Stop Smoking: No Second Hand Smoke Exposure: No Use of substances other than those prescribed or required for medical reasons: Yes Substance Use Type: Crack/Cocaine, Heroin, Marijuana, Opiates, Prescription Drugs and Caffiene Substance Use Frequency: Occasionally Last Used Substance: Weeks (ago) Last Used Substance Other:: Pt reports heroin and marijuana two weeks ago Currently Displaying Signs/Symptoms of Drug Intoxication Withdrawal: No Have you been hit, kicked, punched, or otherwise hurt by someone within the past year? If so, by whom?: No Do you feel safe in your current relationship?: No Current Relationship Is there a partner from a previous relationship who is making you feel unsafe now?: No Are you made to feel afraid or neglected: No Spiritual Healthcare Practices: Denies Yarsanism Healthcare Practices: Scientologist Cultural Healthcare Practices: [facility] Advance Directives: No Advance Directives Information Provided: No (unavailable) Do you have thoughts of harming others: None Do you have a plan to hurt others: No Plan Recently lost weight without trying: No Nutrition Risks: Difficulty chewing and Difficulty swallowing Poor oral hygiene: No service: No Sexual orientation: Straight/Heterosexual Meds Allergies Allergy/AdvReac Type Severity Reaction Status Date / Time ergotamine [ERGOTAMINE] AdvReac Severe NAUSEA Verified 12/20/21 20:55 Active Medications: Current Medications Acetaminophen (Acetaminophen 325 Mg Tablet) 650 mg PO Q6H PRN PRN Reason: Headache/Pain Mild Scale (1-3) Last Admin: 09/04/22 09:55 Dose: 650 mg Al Hydroxide/Mg Hydroxide (Magnesium Hydrox/Alum Hydrox 30 Ml Oral.Susp) 30 ml PO Q6H PRN PRN Reason: Heartburn/Nausea Clonidine HCl (Clonidine Hcl 0.2 Mg Tablet) 0.2 mg PO TID [place]; Protocol Docusate Sodium (Docusate Sodium 100 Mg Capsule) 100 mg PO BID PRN PRN Reason: Constipation Duloxetine HCl (Duloxetine Hcl 20 Mg Capsule.Dr) 20 mg PO DAILY [place] Hydroxyzine HCl (Hydroxyzine Hcl 25 Mg Tablet) 25 mg PO Q6H PRN PRN Reason: Anxiety Lisinopril (Lisinopril 5 Mg Tablet) 5 mg PO DAILY [place] Magnesium Hydroxide (Milk Of Magnesia 30 Ml Oral.Susp) 30 ml PO DAILY PRN PRN Reason: Constipation Methadone HCl (Methadone Hcl 5 Mg Tablet) 5 mg PO Q8H PRN PRN Reason: Pain, Severe (Pain Scale 7-10) Mexiletine HCl (Mexiletine Hcl 150 Mg Capsule) 150 mg PO DAILY [place] Nifedipine (Nifedipine Er 30 Mg Tab.Er.24) 90 mg PO DAILY [place]; Protocol Oxycodone HCl (Oxycodone Hcl Immed Release 5 Mg Tablet) 10 mg PO BID PRN PRN Reason: Pain, Moderate (Pain Scale 4-6 Polyethylene Glycol (Polyethylene Glycol 3350 17 Gm Powd.Pack) 17 gm PO DAILY PRN PRN Reason: Constipation Trazodone HCl (Trazodone Hcl 50 Mg Tablet) 50 mg PO BEDTIME PRN PRN Reason: Insomnia Home Medications Medication Instructions Recorded Confirmed Last Taken Type Milk of Magnesia See Rx Instructions .Route 09/04/22 09/04/22 Unknown History .COMPLEX PRN Constipation Miralax 17 PO DAILY 09/04/22 Unknown History Narcan 1 mg PO NEEDED PRN Opioid 09/04/22 09/04/22 Unknown History Overdose acetaminophen 325 mg tablet 650 mg PO Q6H PRN Pain 09/04/22 09/04/22 Unknown History (Tylenol) clonidine HCl 0.1 mg tablet 0.1 mg PO TID 09/04/22 09/04/22 09/03/22 20:00 History docusate sodium 100 mg capsule 100 mg PO TID 09/04/22 09/04/22 Unknown History (Colace) lisinopril 20 mg tablet 5 mg PO DAILY 09/04/22 09/04/22 Unknown History methadone 10 mg tablet 5 mg PO TID 09/04/22 09/04/22 09/03/22 20:00 History mexiletine 150 mg capsule 150 mg PO QID 09/04/22 09/04/22 Unknown History naloxone 1 mg/mL injection syringe mg 09/04/22 Unknown History nifedipine 60 mg tablet,extended 90 mg PO DAILY 09/04/22 09/04/22 Unknown History release 24 hr ondansetron 4 mg disintegrating 4 mg PO Q8H PRN Nausea And Vomiting 09/04/22 09/04/22 Unknown History tablet oxycodone 20 Q8-10H 09/04/22 Unknown History oxycodone 5 mg tablet 10 mg PO BID 09/04/22 09/04/22 09/03/22 20:00 History Physical Exam Vital Signs and Narrative: Vital Signs: Last Vital Signs Temp 97.8 F 09/04/22 08:01 Pulse 73 09/04/22 08:01 Resp 16 09/04/22 08:01 BP 126/58 L 09/04/22 08:01 Pulse Ox 96 09/04/22 08:01 O2 Del Method 09/04/22 08:01 Constitutional - Awake and Alert, No apparent distress Eyes - PERRLA, EOMI Cardiovascular - S1S2, RRR, No edema Respiratory - Normal lung expansion, Normal respiratory effort, No respiratory distress, CTA bilaterally Gastrointestinal - NT / ND; +BS; No rebound or guarding Extremities - no calf tenderness bilaterally, no swelling Musculoskeletal - Pain midline cervical, thoracic, and lumbar spine with left-sided paraspinal tenderness to palpation in the lumbar spine Skin - Warm/Dry Neurological - Alert & oriented x3, CN II-XII in tact, 5/5 strength BUE and BLE, 2+ patellar reflexes b/l, downgoing babinski Psychological - Appropriate affect Results Labs Labs: Laboratory Results - last 24 hr 09/04/22 09/04/22 09/04/22 07:52 07:52 07:52 Estimat Average Glucose 100 Hemoglobin A1c % 5.1 Magnesium 2.3 Triglycerides 70 Cholesterol 166 LDL Cholesterol, Calc 103 HDL Cholesterol 49 Vitamin B12 435 Folate 9.2 TSH 2.87 Free T4 0.92 Assessment and Plan (1) Depressive disorder: Status: Acute (2) Opioid abuse: Status: Acute (3) Chronic pain: Status: Acute Plan 65-year-old male with history of hypertension, history of arrhythmia with pacemaker in place, depression, and chronic pain disorder related to multiple herniated discs in the cervical, thoracic, and lumbar spine with history of lumbar spine fusion at C5-C6 as well as multiple jaw surgeries on oxycodone and methadone admitted to Psychiatry with consult placed to Medicine for H&P. # depression -plan per Psychiatry # hypertension-reasonably controlled -continue lisinopril -monitor BP's #CHronic pain r/t cervical, thoracic, and lumbar disc herniation as well as multiple jaw surgeries -No evidence of radiculopathy or myelopathy -No evidence of withdrawal at this time. -Recommend resuming home meds -Pt is on large number of narcotics. Monitor closely. Thank you for allowing me to participate in this consult. Signing off at this time. Please do not hesitate to call for further questions.
[2022-09-04 16:30] VITALS: BP 132/72; PULSE 86; TEMP 37.2
[2022-09-04] MEDS: methADONE HCl 5 MG TABLET PO (16:36)
[2022-09-04] MEDS: cloNIDine HCL 0.2 MG TABLET PO ×2 (16:38→20:46)
--- NOTE | 2022-09-04 17:58 | P.HPPS_ITS ---
HPI Chief Complaint: Depressive Disorder HPI Past Psychiatric History: IP: This is the first OP: No. None needed [facility] Medical History Cervical disc herniation HTN (hypertension) Lumbar disc herniation Opioid dependence Pacemaker Thoracic disc herniation Surgical History History of hip replacement History of spinal fusion Family History: Denies Social History: poor social support common disability for more than 20 years, denies having children or any contact with collateral family. Trauma History: . Denies Diagnostics Vital Signs (24Hr): Vital Signs - 24 hr 09/03/22 22:25 09/04/22 08:01 Temperature 97.1 F 97.8 F Pulse Rate 73 73 Respiratory Rate 16 16 Blood Pressure 131/75 126/58 L Pulse Oximetry 97 96 Oxygen Delivery Method Room Air Room Air Labs Labs: Laboratory Results - last 48 hr 09/04/22 09/04/22 09/04/22 07:52 07:52 07:52 Estimat Average Glucose 100 Hemoglobin A1c % 5.1 Magnesium 2.3 Triglycerides 70 Cholesterol 166 LDL Cholesterol, Calc 103 HDL Cholesterol 49 Vitamin B12 435 Folate 9.2 TSH 2.87 Free T4 0.92 Meds/Allergies Meds Home Medications Medication Instructions Recorded Confirmed Type Milk of Magnesia See Rx Instructions .Route 09/04/22 09/04/22 History .COMPLEX PRN Constipation Miralax 17 PO DAILY 09/04/22 History Narcan 1 mg PO NEEDED PRN Opioid 09/04/22 09/04/22 History Overdose acetaminophen 325 mg tablet 650 mg PO Q6H PRN Pain 09/04/22 09/04/22 History (Tylenol) clonidine HCl 0.1 mg tablet 0.1 mg PO TID 09/04/22 09/04/22 History docusate sodium 100 mg capsule 100 mg PO TID 09/04/22 09/04/22 History (Colace) lisinopril 20 mg tablet 5 mg PO DAILY 09/04/22 09/04/22 History methadone 10 mg tablet 5 mg PO TID 09/04/22 09/04/22 History mexiletine 150 mg capsule 150 mg PO QID 09/04/22 09/04/22 History naloxone 1 mg/mL injection syringe mg 09/04/22 History nifedipine 60 mg tablet,extended 90 mg PO DAILY 09/04/22 09/04/22 History release 24 hr ondansetron 4 mg disintegrating 4 mg PO Q8H PRN Nausea And Vomiting 09/04/22 09/04/22 History tablet oxycodone 20 Q8-10H 09/04/22 History oxycodone 5 mg tablet 10 mg PO BID 09/04/22 09/04/22 History Allergies Allergies Allergy/AdvReac Type Severity Reaction Status Date / Time ergotamine [ERGOTAMINE] AdvReac Severe NAUSEA Verified 12/20/21 20:55
--- NOTE | 2022-09-04 20:28 | PC.NURSE ---
Pt submitted a Three Day Notice on 09/04/2022 up on Thursday09/09/2022.
[2022-09-04 20:35] VITALS: BP 133/69; PULSE 77
[2022-09-04] MEDS: traZODone HCL 50 MG TABLET PO (20:45)
[2022-09-04] MEDS: oxyCODONE HCl Immed Release 5 MG TABLET 10 MG PO (20:45)
[2022-09-05 06:00] VITALS: BP 119/96; PULSE 85; RESP 16
[2022-09-05] MEDS: Thiamine HCL 100 MG TABLET PO (08:49)
[2022-09-05] MEDS: NIFEdipine ER 90 MG TAB.ER.24 PO (08:49)
[2022-09-05] MEDS: DULoxetine HCl 20 MG CAPSULE.DR PO (08:49)
[2022-09-05] MEDS: oxyCODONE HCl Immed Release 5 MG TABLET 10 MG PO ×2 (08:49→17:14)
[2022-09-05] MEDS: methADONE HCl 5 MG TABLET PO (08:50)
[2022-09-05] MEDS: Cholecalciferol (Vitamin D3) 25 MCG TABLET 50 MCG PO (08:50)
[2022-09-05] MEDS: cloNIDine HCL 0.2 MG TABLET PO ×3 (08:50→18:57)
[2022-09-05] MEDS: Multivitamin with Minerals Liq 15 ML LIQUID PO (08:50)
[2022-09-05] MEDS: lisinopriL 5 MG TABLET PO (09:38)
[2022-09-05] MEDS: Acetaminophen 325 MG TABLET 650 MG PO ×2 (12:44→18:57)
[2022-09-05 14:04] VITALS: BP 110/60; PULSE 88; RESP 16
[2022-09-05 16:09] VITALS: BP 93/57; PULSE 70; RESP 16; TEMP 36.1; O2SAT 98
--- NOTE | 2022-09-05 16:58 | HO.PSYCHPN ---
Subjective Subjective Date of Service: 09/05/22 Reason For Visit: Depressive Disorder Subjective Notes: Conditional Voluntary Healthcare Proxy: No Guardianship: No Medical Problems Affecting Mental Status: No Interim History: Some improvement, relief with re-establishment of regime he works with his PCP on. Resting comfortably this afternoon. Pt reports to team and tw the fact that he has no one, completely alone, and thus does not want to remain alive, repair his hip, work to get off opiate pain regime. Team will talk with him about a possible living change to [facility], rest home situation. He is open today to hearing what his options may be. 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 Medication Compliance: Yes Side effects from medications: No Attending Groups: No Review of Systems Acute medical concerns: No Medical Review of Systems: unchanged Mental Status Exam Mental Status Exam Patient Appearance: Fatigued Patient Orientation: Person, Place, Time and Situation Level of Consciousness: Sedated and Alert Patient Behavior: Talkative, Cooperative and Good Eye Contact Mood Description: Depressed Affect Description: Flat Patient Cognition Impaired: No Ability to Follow Directions: Good Speech Pattern: Spontaneous Speech Memory Description: Episodic Impaired Hallucinations: None Delusions: Not Present Thought Process: Distracted and Rumination Thought Content: positive for [place], positive for Circumstantial, positive for Slowed Thinking and positive for Suicidal Ideation Depressive Symptoms: Sleeping More Than Usual, Hopelessness, Isolating-Friends/Family, Unhappiness, Increased Fatigue, Thoughts of /Suicide, Low Self Esteem, Loss of Energy and Difficulty Concentrating Judgement: Poor Diagnostics Vital Signs (24Hr): Vital Signs - 24 hr 09/04/22 20:35 09/05/22 06:00 09/05/22 14:04 Temperature Pulse Rate 77 85 88 Respiratory Rate 16 16 Blood Pressure 133/69 119/96 H 110/60 Pulse Oximetry Oxygen Delivery Method Room Air 09/05/22 16:09 Temperature 96.9 F Pulse Rate 70 Respiratory Rate 16 Blood Pressure 93/57 L Pulse Oximetry 98 Oxygen Delivery Method Room Air Labs Labs: Laboratory Results - last 48 hr 09/04/22 09/04/22 09/04/22 07:52 07:52 07:52 Estimat Average Glucose 100 Hemoglobin A1c % 5.1 Magnesium 2.3 Triglycerides 70 Cholesterol 166 LDL Cholesterol, Calc 103 HDL Cholesterol 49 Vitamin B12 435 Folate 9.2 TSH 2.87 Free T4 0.92 Medications Medications Current Medications Acetaminophen (Acetaminophen 325 Mg Tablet) 650 mg PO Q6H PRN PRN Reason: Headache/Pain Mild Scale (1-3) Last Admin: 09/05/22 12:44 Dose: 650 mg Al Hydroxide/Mg Hydroxide (Magnesium Hydrox/Alum Hydrox 30 Ml Oral.Susp) 30 ml PO Q6H PRN PRN Reason: Heartburn/Nausea Clonidine HCl (Clonidine Hcl 0.2 Mg Tablet) 0.2 mg PO TID [facility]; Protocol Last Admin: 09/05/22 14:01 Dose: 0.2 mg Docusate Sodium (Docusate Sodium 100 Mg Capsule) 100 mg PO BID PRN PRN Reason: Constipation Duloxetine HCl (Duloxetine Hcl 20 Mg Capsule.Dr) 20 mg PO DAILY [facility] Last Admin: 09/05/22 08:49 Dose: 20 mg Hydroxyzine HCl (Hydroxyzine Hcl 25 Mg Tablet) 25 mg PO Q6H PRN PRN Reason: Anxiety Lisinopril (Lisinopril 5 Mg Tablet) 5 mg PO DAILY [facility] Last Admin: 09/05/22 09:38 Dose: 5 mg Magnesium Hydroxide (Milk Of Magnesia 30 Ml Oral.Susp) 30 ml PO DAILY PRN PRN Reason: Constipation Methadone HCl (Methadone Hcl 5 Mg Tablet) 5 mg PO Q8H PRN PRN Reason: Pain, Severe (Pain Scale 7-10) Last Admin: 09/05/22 08:50 Dose: 5 mg Nifedipine (Nifedipine Er 90 Mg Tab.Er.24) 90 mg PO DAILY [facility]; Protocol Last Admin: 09/05/22 08:49 Dose: 90 mg Oxycodone HCl (Oxycodone Hcl Immed Release 5 Mg Tablet) 10 mg PO BID PRN PRN Reason: Pain, Moderate (Pain Scale 4-6 Last Admin: 09/05/22 08:49 Dose: 10 mg Polyethylene Glycol (Polyethylene Glycol 3350 17 Gm Powd.Pack) 17 gm PO DAILY PRN PRN Reason: Constipation Thiamine HCl (Thiamine Hcl 100 Mg Tablet) 100 mg PO DAILY [facility] Last Admin: 09/05/22 08:49 Dose: 100 mg Trazodone HCl (Trazodone Hcl 50 Mg Tablet) 50 mg PO BEDTIME PRN PRN Reason: Insomnia Last Admin: 09/04/22 20:45 Dose: 50 mg Vitamin D (Cholecalciferol (Vitamin D3) 25 Mcg Tablet) 50 mcg PO DAILY [place] Last Admin: 09/05/22 08:50 Dose: 50 mcg Allergies Allergies Allergy/AdvReac Type Severity Reaction Status Date / Time ergotamine [ERGOTAMINE] AdvReac Severe NAUSEA Verified 12/20/21 20:55 Assessment & Plan Assessment & Plan (1) Chronic pain: Status: Acute Code(s): G89.29 - Other chronic pain (2) Depressive disorder: Status: Acute Code(s): F32.A - Depression, unspecified (3) Opioid abuse: Status: Acute Code(s): F11.10 - Opioid abuse, uncomplicated Plan 67 yo male with chronic pain, multiple life losses and minimal supports, opiate dependence and recent SI with multiple plans due to poor pain control. Pt also exhibits some sx of MCI which his PCP, who will be terminating with him in October asks that we evaluate. Plan: Re-establish regime Collateral contact Dementia work up vs delirium from group home narcotic use. 09/05/22: Cymbalta restarted on admission PCP asks that we evaluate cognition-?MCI vs group home opiate use in an elder. MOCA initated. Explore new living situation options for Aaron I spent minutes with the patient and/or on the patient floor today, greater than?50% of which was spent counseling/coordinating care. Patient educated on: medication risk/benefits, therapeutic strategies and other Informed Consent: further education needed Reason for contiued inpatient stay Substantial Risk for: harm to self and med/psych decompensation
[2022-09-05] MEDS: Docusate Sodium 100 MG CAPSULE PO (18:57)
[2022-09-05] MEDS: traZODone HCL 50 MG TABLET PO (18:58)
[2022-09-06 06:00] VITALS: BP 142/98; PULSE 87; RESP 18; TEMP 36.1; O2SAT 97
[2022-09-06] MEDS: Cholecalciferol (Vitamin D3) 25 MCG TABLET 50 MCG PO (09:25)
[2022-09-06] MEDS: DULoxetine HCl 20 MG CAPSULE.DR PO (09:27)
[2022-09-06] MEDS: Thiamine HCL 100 MG TABLET PO (09:27)
[2022-09-06] MEDS: lisinopriL 5 MG TABLET PO (09:27)
[2022-09-06] MEDS: NIFEdipine ER 90 MG TAB.ER.24 PO (09:27)
[2022-09-06] MEDS: Multivitamin with Minerals Liq 15 ML LIQUID PO (09:28)
[2022-09-06] MEDS: oxyCODONE HCl Immed Release 5 MG TABLET 10 MG PO ×2 (09:29→15:55)
[2022-09-06] MEDS: cloNIDine HCL 0.2 MG TABLET PO ×3 (09:31→20:44)
--- NOTE | 2022-09-06 10:22 | HO.PSYCHPN ---
Subjective Subjective Date of Service: 09/06/22 Reason For Visit: Depressive Disorder Interim History: pt smiles and say he's horrible. Nursing reports that patient said he was goind to kill himself when he left the unit but that he won't tell this to the doctors so that he can leave. Flyer Repairer inquired about this and pt said no, no, not at all...they must have misunderstood... and that he has no plans for such. He says i just trust women more then men... Otherwise, no requests. Mental Status Exam Mental Status Exam Narrative: Pt is alert and oriented; behavior is cooperative, friendly and calm; patient is not in distress; dressed in casual attire with unkempt hair but adequate hygiene; mood is described as Horrible but affect smiling, affable; eye contact appropriate; Speech is normal rate, volume and prosody and not pressured; no psychomotor agitation/retardation present; thought process is organized and goal directed; Thought content is hard to know as he says different things to different staff; otherwise pertinent to relevant topics and without any delusional content, paranoid ideations or grandiosity; clearly denies any SI/HI to creative writer; endorses it to nurse. There is no evidence of perceptual disturbance. Patients insight and judgment are impaired Diagnostics Vital Signs (24Hr): Vital Signs - 24 hr 09/05/22 14:04 09/05/22 16:09 Temperature 96.9 F Pulse Rate 88 70 Respiratory Rate 16 16 Blood Pressure 110/60 93/57 L Pulse Oximetry 98 Oxygen Delivery Method Room Air Labs Labs: Laboratory Results - last 48 hr 09/04/22 07:52 Vitamin B12 435 Folate 9.2 Medications Medications Current Medications Acetaminophen (Acetaminophen 325 Mg Tablet) 650 mg PO Q6H PRN PRN Reason: Headache/Pain Mild Scale (1-3) Last Admin: 09/05/22 18:57 Dose: 650 mg Al Hydroxide/Mg Hydroxide (Magnesium Hydrox/Alum Hydrox 30 Ml Oral.Susp) 30 ml PO Q6H PRN PRN Reason: Heartburn/Nausea Clonidine HCl (Clonidine Hcl 0.2 Mg Tablet) 0.2 mg PO TID [place]; Protocol Last Admin: 09/06/22 09:31 Dose: 0.2 mg Docusate Sodium (Docusate Sodium 100 Mg Capsule) 100 mg PO BID PRN PRN Reason: Constipation Last Admin: 09/05/22 18:57 Dose: 100 mg Duloxetine HCl (Duloxetine Hcl 20 Mg Capsule.Dr) 20 mg PO DAILY [facility] Last Admin: 09/06/22 09:27 Dose: 20 mg Hydroxyzine HCl (Hydroxyzine Hcl 25 Mg Tablet) 25 mg PO Q6H PRN PRN Reason: Anxiety Lisinopril (Lisinopril 5 Mg Tablet) 5 mg PO DAILY [facility] Last Admin: 09/06/22 09:27 Dose: 5 mg Magnesium Hydroxide (Milk Of Magnesia 30 Ml Oral.Susp) 30 ml PO DAILY PRN PRN Reason: Constipation Methadone HCl (Methadone Hcl 5 Mg Tablet) 5 mg PO Q8H PRN PRN Reason: Pain, Severe (Pain Scale 7-10) Last Admin: 09/05/22 08:50 Dose: 5 mg Nifedipine (Nifedipine Er 90 Mg Tab.Er.24) 90 mg PO DAILY [facility]; Protocol Last Admin: 09/06/22 09:27 Dose: 90 mg Oxycodone HCl (Oxycodone Hcl Immed Release 5 Mg Tablet) 10 mg PO BID PRN PRN Reason: Pain, Moderate (Pain Scale 4-6 Last Admin: 09/06/22 09:29 Dose: 10 mg Polyethylene Glycol (Polyethylene Glycol 3350 17 Gm Powd.Pack) 17 gm PO DAILY PRN PRN Reason: Constipation Thiamine HCl (Thiamine Hcl 100 Mg Tablet) 100 mg PO DAILY [facility] Last Admin: 09/06/22 09:27 Dose: 100 mg Trazodone HCl (Trazodone Hcl 50 Mg Tablet) 50 mg PO BEDTIME PRN PRN Reason: Insomnia Last Admin: 09/05/22 18:58 Dose: 50 mg Vitamin D (Cholecalciferol (Vitamin D3) 25 Mcg Tablet) 50 mcg PO DAILY [facility] Last Admin: 09/06/22 09:25 Dose: 50 mcg Allergies Allergies Allergy/AdvReac Type Severity Reaction Status Date / Time ergotamine [ERGOTAMINE] AdvReac Severe NAUSEA Verified 12/20/21 20:55 Assessment & Plan Assessment & Plan (1) Chronic pain: Status: Acute Code(s): G89.29 - Other chronic pain (2) Depressive disorder: Status: Acute Code(s): F32.A - Depression, unspecified (3) Opioid abuse: Status: Acute Code(s): F11.10 - Opioid abuse, uncomplicated Plan 67 yo male with chronic pain, multiple life losses and minimal supports, opiate dependence and recent SI with multiple plans due to poor pain control. Pt also exhibits some sx of MCI which his PCP, who will be terminating with him in October asks that we evaluate. Plan: Re-establish regime Collateral contact Dementia work up vs delirium from [facility] narcotic use. 09/05/22: Cymbalta restarted on admission PCP asks that we evaluate cognition-?MCI vs lobsterman opiate use in an elder. MOCA initated. Explore new living situation options for Aaron 09/06 continue current tx plan I spent minutes with the patient and/or on the patient floor today, greater than?50% of which was spent counseling/coordinating care. Patient educated on: diagnosis Informed Consent: understands Reason for contiued inpatient stay Substantial Risk for: rapid decompensation
--- NOTE | 2022-09-06 11:52 | PC.NURSE ---
No treatment team meeting today as it is a weekend.
[2022-09-06] MEDS: methADONE HCl 5 MG TABLET PO ×2 (12:51→20:45)
[2022-09-06 17:00] VITALS: BP 102/62; PULSE 72; RESP 18; O2SAT 97
[2022-09-06] MEDS: Acetaminophen 325 MG TABLET 650 MG PO (20:45)
[2022-09-06] MEDS: traZODone HCL 50 MG TABLET PO (20:45)
[2022-09-07] MEDS: oxyCODONE HCl Immed Release 5 MG TABLET 10 MG PO ×2 (06:23→18:56)
[2022-09-07] MEDS: Cholecalciferol (Vitamin D3) 25 MCG TABLET 50 MCG PO (08:59)
[2022-09-07] MEDS: cloNIDine HCL 0.2 MG TABLET PO ×3 (09:00→20:29)
[2022-09-07] MEDS: lisinopriL 5 MG TABLET PO (09:00)
[2022-09-07] MEDS: DULoxetine HCl 20 MG CAPSULE.DR PO (09:00)
[2022-09-07] MEDS: NIFEdipine ER 90 MG TAB.ER.24 PO (09:00)
[2022-09-07] MEDS: Thiamine HCL 100 MG TABLET PO (09:01)
[2022-09-07] MEDS: Multivitamin with Minerals Liq 15 ML LIQUID PO (09:01)
[2022-09-07 09:13] VITALS: BP 127/78; PULSE 88; RESP 18; TEMP 36.9; O2SAT 98
[2022-09-07] MEDS: Acetaminophen 325 MG TABLET 650 MG PO (09:58)
[2022-09-07] MEDS: methADONE HCl 5 MG TABLET PO ×2 (12:06→22:21)
--- NOTE | 2022-09-07 12:56 | HO.PSYCHPN ---
Subjective Subjective Date of Service: 09/07/22 Reason For Visit: Depressive Disorder Interim History: With a smile Patient says he is lousy. Resolution Expert asks him about suicidality and he winks at card writer hand and says, no not at all....well i'm not going to say anything that will keep me here, I know better than that. Review of Systems Review of Systems Pt is alert and oriented; behavior is cooperative, friendly and calm; patient is not in distress; dressed in casual attire with unkempt hair but adequate hygiene; mood is described as lousy but smiling, affable; eye contact appropriate; Speech is normal rate, volume and prosody and not pressured; no psychomotor agitation/retardation present; thought process is organized and goal directed; Thought content is hard to know as he says different things to different staff; otherwise pertinent to relevant topics and without any delusional content, paranoid ideations or grandiosity; purposely unclear about SI; There is no evidence of perceptual disturbance. ?Patients insight and judgment are impaired Diagnostics Vital Signs (24Hr): Vital Signs - 24 hr 09/06/22 17:00 09/07/22 09:13 Temperature 98.4 F Pulse Rate 72 88 Respiratory Rate 18 18 Blood Pressure 102/62 127/78 Pulse Oximetry 97 98 Oxygen Delivery Method Room Air Room Air Medications Medications Current Medications Acetaminophen (Acetaminophen 325 Mg Tablet) 650 mg PO Q6H PRN PRN Reason: Headache/Pain Mild Scale (1-3) Last Admin: 09/07/22 09:58 Dose: 650 mg Al Hydroxide/Mg Hydroxide (Magnesium Hydrox/Alum Hydrox 30 Ml Oral.Susp) 30 ml PO Q6H PRN PRN Reason: Heartburn/Nausea Clonidine HCl (Clonidine Hcl 0.2 Mg Tablet) 0.2 mg PO TID [facility]; Protocol Last Admin: 09/07/22 09:00 Dose: 0.2 mg Docusate Sodium (Docusate Sodium 100 Mg Capsule) 100 mg PO BID PRN PRN Reason: Constipation Last Admin: 09/05/22 18:57 Dose: 100 mg Duloxetine HCl (Duloxetine Hcl 20 Mg Capsule.Dr) 20 mg PO DAILY [place] Last Admin: 09/07/22 09:00 Dose: 20 mg Hydroxyzine HCl (Hydroxyzine Hcl 25 Mg Tablet) 25 mg PO Q6H PRN PRN Reason: Anxiety Lisinopril (Lisinopril 5 Mg Tablet) 5 mg PO DAILY [facility] [place] Last Admin: 09/07/22 09:00 Dose: 5 mg Magnesium Hydroxide (Milk Of Magnesia 30 Ml Oral.Susp) 30 ml PO DAILY PRN PRN Reason: Constipation Methadone HCl (Methadone Hcl 5 Mg Tablet) 5 mg PO Q8H PRN PRN Reason: Pain, Severe (Pain Scale 7-10) Last Admin: 09/07/22 12:06 Dose: 5 mg Nifedipine (Nifedipine Er 90 Mg Tab.Er.24) 90 mg PO DAILY [facility] [place]; Protocol Last Admin: 09/07/22 09:00 Dose: 90 mg Oxycodone HCl (Oxycodone Hcl Immed Release 5 Mg Tablet) 10 mg PO BID PRN PRN Reason: Pain, Moderate (Pain Scale 4-6 Last Admin: 09/07/22 06:23 Dose: 10 mg Polyethylene Glycol (Polyethylene Glycol 3350 17 Gm Powd.Pack) 17 gm PO DAILY PRN PRN Reason: Constipation Thiamine HCl (Thiamine Hcl 100 Mg Tablet) 100 mg PO DAILY [facility] [place] Last Admin: 09/07/22 09:01 Dose: 100 mg Trazodone HCl (Trazodone Hcl 50 Mg Tablet) 50 mg PO BEDTIME PRN PRN Reason: Insomnia Last Admin: 09/06/22 20:45 Dose: 50 mg Vitamin D (Cholecalciferol (Vitamin D3) 25 Mcg Tablet) 50 mcg PO DAILY [facility] [place] Last Admin: 09/07/22 08:59 Dose: 50 mcg Allergies Allergies Allergy/AdvReac Type Severity Reaction Status Date / Time ergotamine [ERGOTAMINE] AdvReac Severe NAUSEA Verified 12/20/21 20:55 Assessment & Plan Assessment & Plan (1) Chronic pain: Status: Acute Code(s): G89.29 - Other chronic pain (2) Depressive disorder: Status: Acute Code(s): F32.A - Depression, unspecified (3) Opioid abuse: Status: Acute Code(s): F11.10 - Opioid abuse, uncomplicated Plan 67 yo male with chronic pain, multiple life losses and minimal supports, opiate dependence and recent SI with multiple plans due to poor pain control. Pt also exhibits some sx of MCI which his PCP, who will be terminating with him in October asks that we evaluate. Plan: Re-establish regime Collateral contact Dementia work up vs delirium from terminal operator narcotic use. 09/05/22: Cymbalta restarted on admission PCP asks that we evaluate cognition-?MCI vs fci opiate use in an elder. MOCA initated. Explore new living situation options for Aaron 09/06 continue current tx plan 09/07 continue current tx plan; purposely trying to be gamey about suicidality I spent minutes with the patient and/or on the patient floor today, greater than?50% of which was spent counseling/coordinating care. Patient educated on: diagnosis Informed Consent: understands Reason for contiued inpatient stay Substantial Risk for: rapid decompensation
[2022-09-07 18:00] VITALS: BP 147/96; PULSE 71; RESP 18; TEMP 36.2; O2SAT 96
[2022-09-07] MEDS: traZODone HCL 50 MG TABLET PO (20:29)
[2022-09-08 06:00] VITALS: BP 132/84; PULSE 73; RESP 18; TEMP 36.1; O2SAT 97
[2022-09-08] MEDS: oxyCODONE HCl Immed Release 5 MG TABLET 10 MG PO ×2 (06:27→12:31)
[2022-09-08] MEDS: methADONE HCl 5 MG TABLET PO ×2 (06:28→14:46)
[2022-09-08] MEDS: cloNIDine HCL 0.2 MG TABLET PO ×3 (08:25→19:58)
[2022-09-08] MEDS: NIFEdipine ER 90 MG TAB.ER.24 PO (08:25)
[2022-09-08] MEDS: Cholecalciferol (Vitamin D3) 25 MCG TABLET 50 MCG PO (08:25)
[2022-09-08] MEDS: Thiamine HCL 100 MG TABLET PO (08:26)
[2022-09-08] MEDS: Multivitamin with Minerals Liq 15 ML LIQUID PO (08:26)
[2022-09-08] MEDS: lisinopriL 5 MG TABLET PO (08:26)
[2022-09-08] MEDS: Acetaminophen 325 MG TABLET 650 MG PO ×2 (08:26→19:58)
[2022-09-08] MEDS: DULoxetine HCl 20 MG CAPSULE.DR PO (08:26)
[2022-09-08 13:45] VITALS: BP 129/89; PULSE 76; RESP 18; O2SAT 98
--- NOTE | 2022-09-08 17:53 | P.PNPSI_ITS ---
Subjective Subjective Date of Service: 09/08/22 Reason For Visit: Depressive Disorder Subjective Notes: Conditional Voluntary and 3 Day (submitted and retracted) Healthcare Proxy: No Guardianship: No Medical Problems Affecting Mental Status: Yes (chronic pain) Interim History: Why do you bother with me? Just let me . (laughs) Discussed treatment on the unit. Reports regime to be intact, helpful, tolerated and without SE. Pain is reasonably managed. Discussed possible referral to rest home. The facility he has been referred to is where his father was, so he is familiar with this. I would be happy there, I would never harm myself here or there . Where I am now is just a bed in a room-alone . I lie waiting to . Discussed his past. By history he has always done well when institutionalized. Reports he spent a year incarcerated for having pain meds on his person. They all used to ask me why was I there, tell me I did not belong there. They took great care of me and I needed this- I was so very thankful for them . Describes his need and response for institutional level of care and that he feels a sense of belonging and is appreciative of the care as he cannot care for himself. Interactive with team and peers. Clearly benefits from the support and structure of this environment. Medication Compliance: Yes Side effects from medications: No Attending Groups: Intermittent Review of Systems Acute medical concerns: No Chronic pain Medical Review of Systems: unchanged Mental Status Exam Mental Status Exam Patient Appearance: Fatigued and Appropriate Patient Orientation: Person, Place, Time and Situation Level of Consciousness: Alert Patient Behavior: Appropriate, Dependent, Talkative, Cooperative, Anxious, Fearful, Fatigued, Distractible, Isolative and Good Eye Contact Mood Description: Depressed and Anxious Affect Description: Flat Patient Cognition Impaired: No Ability to Follow Directions: Good Speech Pattern: Spontaneous Speech Memory Description: Episodic Impaired Hallucinations: None Delusions: Not Present Thought Process: Rumination Thought Content: positive for Circumstantial, positive for Perseveration and positive for Suicidal Ideation (out of a structured care environment) Depressive Symptoms: Increased Anxiety, Feelings of Worthlessness, Hopelessness, Isolating-Friends/Family, Feelings of Guilt, Unhappiness, Thoughts of /Suicide (when out of a strucutured care environment) and Low Self Esteem Judgement: Fair Diagnostics Vital Signs (24Hr): Vital Signs - 24 hr 09/07/22 18:00 09/08/22 06:00 09/08/22 13:45 Temperature 97.2 F 97.0 F Pulse Rate 71 73 76 Respiratory Rate 18 18 18 Blood Pressure 147/96 H 132/84 129/89 Pulse Oximetry 96 97 98 Oxygen Delivery Method Room Air Room Air Room Air Medications Medications Current Medications Acetaminophen (Acetaminophen 325 Mg Tablet) 650 mg PO Q6H PRN PRN Reason: Headache/Pain Mild Scale (1-3) Last Admin: 09/08/22 08:26 Dose: 650 mg Al Hydroxide/Mg Hydroxide (Magnesium Hydrox/Alum Hydrox 30 Ml Oral.Susp) 30 ml PO Q6H PRN PRN Reason: Heartburn/Nausea Clonidine HCl (Clonidine Hcl 0.2 Mg Tablet) 0.2 mg PO TID [facility]; Protocol Last Admin: 09/08/22 14:00 Dose: 0.2 mg Docusate Sodium (Docusate Sodium 100 Mg Capsule) 100 mg PO BID PRN PRN Reason: Constipation Last Admin: 09/05/22 18:57 Dose: 100 mg Duloxetine HCl (Duloxetine Hcl 20 Mg Capsule.Dr) 20 mg PO DAILY [facility] Last Admin: 09/08/22 08:26 Dose: 20 mg Hydroxyzine HCl (Hydroxyzine Hcl 25 Mg Tablet) 25 mg PO Q6H PRN PRN Reason: Anxiety Lisinopril (Lisinopril 5 Mg Tablet) 5 mg PO DAILY [facility] Last Admin: 09/08/22 08:26 Dose: 5 mg Magnesium Hydroxide (Milk Of Magnesia 30 Ml Oral.Susp) 30 ml PO DAILY PRN PRN Reason: Constipation Methadone HCl (Methadone Hcl 5 Mg Tablet) 5 mg PO Q8H PRN PRN Reason: Pain, Severe (Pain Scale 7-10) Last Admin: 09/08/22 14:46 Dose: 5 mg Nifedipine (Nifedipine Er 90 Mg Tab.Er.24) 90 mg PO DAILY [facility]; Protocol Last Admin: 09/08/22 08:25 Dose: 90 mg Oxycodone HCl (Oxycodone Hcl Immed Release 5 Mg Tablet) 10 mg PO BID PRN PRN Reason: Pain, Moderate (Pain Scale 4-6 Last Admin: 09/08/22 12:31 Dose: 10 mg Polyethylene Glycol (Polyethylene Glycol 3350 17 Gm Powd.Pack) 17 gm PO DAILY PRN PRN Reason: Constipation Thiamine HCl (Thiamine Hcl 100 Mg Tablet) 100 mg PO DAILY [facility] Last Admin: 09/08/22 08:26 Dose: 100 mg Trazodone HCl (Trazodone Hcl 50 Mg Tablet) 50 mg PO BEDTIME PRN PRN Reason: Insomnia Last Admin: 09/07/22 20:29 Dose: 50 mg Vitamin D (Cholecalciferol (Vitamin D3) 25 Mcg Tablet) 50 mcg PO DAILY [place] Last Admin: 09/08/22 08:25 Dose: 50 mcg Allergies Allergies Allergy/AdvReac Type Severity Reaction Status Date / Time ergotamine [ERGOTAMINE] AdvReac Severe NAUSEA Verified 12/20/21 20:55 Assessment & Plan Assessment & Plan (1) Chronic pain: Status: Acute Code(s): G89.29 - Other chronic pain (2) Depressive disorder: Status: Acute Code(s): F32.A - Depression, unspecified (3) Opioid abuse: Status: Acute Code(s): F11.10 - Opioid abuse, uncomplicated Plan 67 yo male with chronic pain, multiple life losses and minimal supports, opiate dependence and recent SI with multiple plans due to poor pain control. Pt also exhibits some sx of MCI which his PCP, who will be terminating with him in October asks that we evaluate. Plan: Re-establish regime Collateral contact Dementia work up vs delirium from senior care narcotic use. 09/05/22: Cymbalta restarted on admission PCP asks that we evaluate cognition-?MCI vs senior care opiate use in an elder. MOCA initated. Explore new living situation options for Aaron 09/06 continue current tx plan 09/07 continue current tx plan; purposely trying to be gamey about suicidality 09/08/22- continue current plan of care- applications for longer term supported living in process. I spent minutes with the patient and/or on the patient floor today, greater than?50% of which was spent counseling/coordinating care. Patient educated on: therapeutic strategies Informed Consent: further education needed Reason for contiued inpatient stay Substantial Risk for: harm to self, inability to function and med/psych decompensation
[2022-09-08 19:55] VITALS: BP 111/80; PULSE 73; RESP 16; TEMP 36.9
[2022-09-08] MEDS: traZODone HCL 50 MG TABLET PO (19:58)
[2022-09-09] MEDS: oxyCODONE HCl Immed Release 5 MG TABLET 10 MG PO ×2 (00:40→15:57)
[2022-09-09] MEDS: traZODone HCL 50 MG TABLET PO ×2 (00:40→21:24)
[2022-09-09] MEDS: methADONE HCl 5 MG TABLET PO ×3 (00:40→20:24)
[2022-09-09 06:00] VITALS: BP 139/90; PULSE 73; RESP 18; TEMP 36.3; O2SAT 97
[2022-09-09] MEDS: lisinopriL 5 MG TABLET PO (08:09)
[2022-09-09] MEDS: cloNIDine HCL 0.2 MG TABLET PO ×3 (08:09→20:24)
[2022-09-09] MEDS: Thiamine HCL 100 MG TABLET PO (08:09)
[2022-09-09] MEDS: Cholecalciferol (Vitamin D3) 25 MCG TABLET 50 MCG PO (08:10)
[2022-09-09] MEDS: NIFEdipine ER 90 MG TAB.ER.24 PO (08:10)
[2022-09-09] MEDS: Acetaminophen 325 MG TABLET 650 MG PO ×2 (08:10→14:10)
[2022-09-09] MEDS: DULoxetine HCl 20 MG CAPSULE.DR PO (08:10)
[2022-09-09] MEDS: Multivitamin with Minerals Liq 15 ML LIQUID PO (08:11)
--- NOTE | 2022-09-09 14:41 | HO.PSYCHPN ---
Subjective Subjective Date of Service: 09/09/22 Reason For Visit: Depressive Disorder Subjective Notes: Conditional Voluntary Healthcare Proxy: No Guardianship: No Medical Problems Affecting Mental Status: Yes (chronic pain) Interim History: Aaron denies current concerns today. He is visable, engaged with peers and involved in the milieu. Medication Compliance: Yes Side effects from medications: No Attending Groups: Intermittent Review of Systems Acute medical concerns: No Medical Review of Systems: unchanged Mental Status Exam Mental Status Exam Patient Appearance: Fatigued and Appropriate Patient Orientation: Person, Place, Time and Situation Level of Consciousness: Alert Patient Behavior: Appropriate, Dependent, Talkative, Cooperative, Anxious, Fearful, Fatigued, Distractible, Isolative and Good Eye Contact Mood Description: Depressed and Anxious Affect Description: Flat Patient Cognition Impaired: No Ability to Follow Directions: Good Speech Pattern: Spontaneous Speech Memory Description: Episodic Impaired Hallucinations: None Delusions: Not Present Thought Process: Rumination Thought Content: positive for Circumstantial, positive for Perseveration and positive for Suicidal Ideation (out of a structured care environment) Depressive Symptoms: Increased Anxiety, Feelings of Worthlessness, Hopelessness, Isolating-Friends/Family, Feelings of Guilt, Unhappiness, Thoughts of /Suicide (when out of a strucutured care environment) and Low Self Esteem Judgement: Fair Diagnostics Vital Signs (24Hr): Vital Signs - 24 hr 09/08/22 19:55 09/09/22 06:00 Temperature 98.5 F 97.3 F Pulse Rate 73 73 Respiratory Rate 16 18 Blood Pressure 111/80 139/90 H Pulse Oximetry 97 Oxygen Delivery Method Room Air Medications Medications Current Medications Acetaminophen (Acetaminophen 325 Mg Tablet) 650 mg PO Q6H PRN PRN Reason: Headache/Pain Mild Scale (1-3) Last Admin: 09/09/22 14:10 Dose: 650 mg Al Hydroxide/Mg Hydroxide (Magnesium Hydrox/Alum Hydrox 30 Ml Oral.Susp) 30 ml PO Q6H PRN PRN Reason: Heartburn/Nausea Clonidine HCl (Clonidine Hcl 0.2 Mg Tablet) 0.2 mg PO TID [place]; Protocol Last Admin: 09/09/22 14:10 Dose: 0.2 mg Docusate Sodium (Docusate Sodium 100 Mg Capsule) 100 mg PO BID PRN PRN Reason: Constipation Last Admin: 09/05/22 18:57 Dose: 100 mg Duloxetine HCl (Duloxetine Hcl 20 Mg Capsule.Dr) 20 mg PO DAILY [facility] Last Admin: 09/09/22 08:10 Dose: 20 mg Hydroxyzine HCl (Hydroxyzine Hcl 25 Mg Tablet) 25 mg PO Q6H PRN PRN Reason: Anxiety Lisinopril (Lisinopril 5 Mg Tablet) 5 mg PO DAILY [facility] Last Admin: 09/09/22 08:09 Dose: 5 mg Magnesium Hydroxide (Milk Of Magnesia 30 Ml Oral.Susp) 30 ml PO DAILY PRN PRN Reason: Constipation Methadone HCl (Methadone Hcl 5 Mg Tablet) 5 mg PO Q8H PRN PRN Reason: Pain, Severe (Pain Scale 7-10) Last Admin: 09/09/22 11:52 Dose: 5 mg Nifedipine (Nifedipine Er 90 Mg Tab.Er.24) 90 mg PO DAILY [facility]; Protocol Last Admin: 09/09/22 08:10 Dose: 90 mg Oxycodone HCl (Oxycodone Hcl Immed Release 5 Mg Tablet) 10 mg PO BID PRN PRN Reason: Pain, Moderate (Pain Scale 4-6 Last Admin: 09/09/22 00:40 Dose: 10 mg Polyethylene Glycol (Polyethylene Glycol 3350 17 Gm Powd.Pack) 17 gm PO DAILY PRN PRN Reason: Constipation Thiamine HCl (Thiamine Hcl 100 Mg Tablet) 100 mg PO DAILY [facility] Last Admin: 09/09/22 08:09 Dose: 100 mg Trazodone HCl (Trazodone Hcl 50 Mg Tablet) 50 mg PO BEDTIME PRN PRN Reason: Insomnia Last Admin: 09/09/22 00:40 Dose: 50 mg Vitamin D (Cholecalciferol (Vitamin D3) 25 Mcg Tablet) 50 mcg PO DAILY [facility] Last Admin: 09/09/22 08:10 Dose: 50 mcg Allergies Allergies Allergy/AdvReac Type Severity Reaction Status Date / Time ergotamine [ERGOTAMINE] AdvReac Severe NAUSEA Verified 12/20/21 20:55 Assessment & Plan Assessment & Plan (1) Chronic pain: Status: Acute Code(s): G89.29 - Other chronic pain (2) Depressive disorder: Status: Acute Code(s): F32.A - Depression, unspecified (3) Opioid abuse: Status: Acute Code(s): F11.10 - Opioid abuse, uncomplicated Plan 67 yo male with chronic pain, multiple life losses and minimal supports, opiate dependence and recent SI with multiple plans due to poor pain control. Pt also exhibits some sx of MCI which his PCP, who will be terminating with him in October asks that we evaluate. Plan: Re-establish regime Collateral contact Dementia work up vs delirium from alf narcotic use. 09/05/22: Cymbalta restarted on admission PCP asks that we evaluate cognition-?MCI vs alf opiate use in an elder. MOCA initated. Explore new living situation options for Aaron 09/06 continue current tx plan 09/07 continue current tx plan; purposely trying to be gamey about suicidality 09/08/22- continue current plan of care- applications for longer term supported living in process. 09/09/22- continue current plan of care I spent minutes with the patient and/or on the patient floor today, greater than?50% of which was spent counseling/coordinating care. Patient educated on: therapeutic strategies Informed Consent: understands Reason for contiued inpatient stay Substantial Risk for: harm to self, inability to function, rapid decompensation and med/psych decompensation
[2022-09-09 20:25] VITALS: BP 126/79; PULSE 78; RESP 16; TEMP 36.1; O2SAT 94
[2022-09-10 06:00] VITALS: BP 138/93; PULSE 83; RESP 18; TEMP 36.4; O2SAT 98
[2022-09-10] MEDS: Multivitamin with Minerals Liq 15 ML LIQUID PO (08:11)
[2022-09-10] MEDS: lisinopriL 5 MG TABLET PO (08:11)
[2022-09-10] MEDS: Thiamine HCL 100 MG TABLET PO (08:11)
[2022-09-10] MEDS: cloNIDine HCL 0.2 MG TABLET PO ×3 (08:11→20:10)
[2022-09-10] MEDS: Cholecalciferol (Vitamin D3) 25 MCG TABLET 50 MCG PO (08:11)
[2022-09-10] MEDS: NIFEdipine ER 90 MG TAB.ER.24 PO (08:12)
[2022-09-10] MEDS: DULoxetine HCl 20 MG CAPSULE.DR PO (08:12)
[2022-09-10] MEDS: oxyCODONE HCl Immed Release 5 MG TABLET 10 MG PO ×3 (08:12→20:10)
[2022-09-10] MEDS: methADONE HCl 5 MG TABLET PO (11:58)
[2022-09-10 16:54] VITALS: BP 102/63; PULSE 77; RESP 18; TEMP 36.1; O2SAT 97
--- NOTE | 2022-09-10 17:56 | HO.PSYCHPN ---
Subjective Subjective Date of Service: 09/10/22 Reason For Visit: Depressive Disorder Subjective Notes: Conditional Voluntary Healthcare Proxy: No Guardianship: No Medical Problems Affecting Mental Status: Yes (chronic pain) Interim History: Aaron discussed the possibility of improving quality of life and decreasing pain by having his R Hip Fx evaluated by [facility] for possible surgery. He is willing to attend an appt which we will attempt to schedule. Continues to report SI in community due to lack of famiy, losses and lack of supports. He has positive interest in moving to a rest home situation and working with their team. Continues to report he does well in an institutional setting and would establish safety there. Medication Compliance: Yes Side effects from medications: No Attending Groups: Intermittent Review of Systems Acute medical concerns: No Chronic pain Medical Review of Systems: unchanged Mental Status Exam Mental Status Exam Patient Appearance: Fatigued and Appropriate Patient Orientation: Person, Place, Time and Situation Level of Consciousness: Alert Patient Behavior: Appropriate, Dependent, Talkative, Cooperative, Anxious, Fearful, Fatigued, Distractible, Isolative and Good Eye Contact Mood Description: Depressed and Anxious Affect Description: Flat Patient Cognition Impaired: No Ability to Follow Directions: Good Speech Pattern: Spontaneous Speech Memory Description: Episodic Impaired Hallucinations: None Delusions: Not Present Thought Process: Rumination Thought Content: positive for Circumstantial, positive for Perseveration and positive for Suicidal Ideation (out of a structured care environment) Depressive Symptoms: Increased Anxiety, Feelings of Worthlessness, Hopelessness, Isolating-Friends/Family, Feelings of Guilt, Unhappiness, Thoughts of /Suicide (when out of a strucutured care environment) and Low Self Esteem Judgement: Fair Diagnostics Vital Signs (24Hr): Vital Signs - 24 hr 09/09/22 20:25 09/10/22 06:00 09/10/22 16:54 Temperature 97.0 F 97.6 F 97 F Pulse Rate 78 83 77 Respiratory Rate 16 18 18 Blood Pressure 126/79 138/93 H 102/63 Pulse Oximetry 94 98 97 Oxygen Delivery Method Room Air Room Air Room Air Medications Medications Current Medications Acetaminophen (Acetaminophen 325 Mg Tablet) 650 mg PO Q6H PRN PRN Reason: Headache/Pain Mild Scale (1-3) Last Admin: 09/09/22 14:10 Dose: 650 mg Al Hydroxide/Mg Hydroxide (Magnesium Hydrox/Alum Hydrox 30 Ml Oral.Susp) 30 ml PO Q6H PRN PRN Reason: Heartburn/Nausea Clonidine HCl (Clonidine Hcl 0.2 Mg Tablet) 0.2 mg PO TID [facility]; Protocol Last Admin: 09/10/22 14:53 Dose: 0.2 mg Docusate Sodium (Docusate Sodium 100 Mg Capsule) 100 mg PO BID PRN PRN Reason: Constipation Last Admin: 09/05/22 18:57 Dose: 100 mg Duloxetine HCl (Duloxetine Hcl 20 Mg Capsule.Dr) 20 mg PO DAILY [facility] Last Admin: 09/10/22 08:12 Dose: 20 mg Hydroxyzine HCl (Hydroxyzine Hcl 25 Mg Tablet) 25 mg PO Q6H PRN PRN Reason: Anxiety Lisinopril (Lisinopril 5 Mg Tablet) 5 mg PO DAILY [facility] Last Admin: 09/10/22 08:11 Dose: 5 mg Magnesium Hydroxide (Milk Of Magnesia 30 Ml Oral.Susp) 30 ml PO DAILY PRN PRN Reason: Constipation Methadone HCl (Methadone Hcl 5 Mg Tablet) 5 mg PO Q8H PRN PRN Reason: Pain, Severe (Pain Scale 7-10) Last Admin: 09/10/22 11:58 Dose: 5 mg Nifedipine (Nifedipine Er 90 Mg Tab.Er.24) 90 mg PO DAILY [facility]; Protocol Last Admin: 09/10/22 08:12 Dose: 90 mg Oxycodone HCl (Oxycodone Hcl Immed Release 5 Mg Tablet) 10 mg PO BID PRN PRN Reason: Pain, Moderate (Pain Scale 4-6 Last Admin: 09/10/22 13:31 Dose: 10 mg Polyethylene Glycol (Polyethylene Glycol 3350 17 Gm Powd.Pack) 17 gm PO DAILY PRN PRN Reason: Constipation Thiamine HCl (Thiamine Hcl 100 Mg Tablet) 100 mg PO DAILY [facility] Last Admin: 09/10/22 08:11 Dose: 100 mg Trazodone HCl (Trazodone Hcl 50 Mg Tablet) 50 mg PO BEDTIME PRN PRN Reason: Insomnia Last Admin: 09/09/22 21:24 Dose: 50 mg Vitamin D (Cholecalciferol (Vitamin D3) 25 Mcg Tablet) 50 mcg PO DAILY [facility] Last Admin: 09/10/22 08:11 Dose: 50 mcg Allergies Allergies Allergy/AdvReac Type Severity Reaction Status Date / Time ergotamine [ERGOTAMINE] AdvReac Severe NAUSEA Verified 12/20/21 20:55 Assessment & Plan Assessment & Plan (1) Chronic pain: Status: Acute Code(s): G89.29 - Other chronic pain (2) Depressive disorder: Status: Acute Code(s): F32.A - Depression, unspecified (3) Opioid abuse: Status: Acute Code(s): F11.10 - Opioid abuse, uncomplicated Plan 67 yo male with chronic pain, multiple life losses and minimal supports, opiate dependence and recent SI with multiple plans due to poor pain control. Pt also exhibits some sx of MCI which his PCP, who will be terminating with him in October asks that we evaluate. Plan: Re-establish regime Collateral contact Dementia work up vs delirium from manager intermediate narcotic use. 09/05/22: Cymbalta restarted on admission PCP asks that we evaluate cognition-?MCI vs manager intermediate opiate use in an elder. MOCA initated. Explore new living situation options for Aaron 09/06 continue current tx plan 09/07 continue current tx plan; purposely trying to be gamey about suicidality 09/08/22- continue current plan of care- applications for longer term supported living in process. 09/09/22- continue current plan of care 09/10/22- Continue current plan of care-awaiting word from rest home applications. I spent minutes with the patient and/or on the patient floor today, greater than?50% of which was spent counseling/coordinating care. Patient educated on: therapeutic strategies Informed Consent: understands and further education needed Reason for contiued inpatient stay Substantial Risk for: rapid decompensation
[2022-09-11] MEDS: methADONE HCl 5 MG TABLET PO ×2 (05:43→15:51)
[2022-09-11 06:00] VITALS: BP 144/81; PULSE 79; RESP 14; TEMP 36.3; O2SAT 98
[2022-09-11] MEDS: Cholecalciferol (Vitamin D3) 25 MCG TABLET 50 MCG PO (08:29)
[2022-09-11] MEDS: lisinopriL 5 MG TABLET PO (08:29)
[2022-09-11] MEDS: Thiamine HCL 100 MG TABLET PO (08:29)
[2022-09-11] MEDS: NIFEdipine ER 90 MG TAB.ER.24 PO (08:29)
[2022-09-11] MEDS: oxyCODONE HCl Immed Release 5 MG TABLET 10 MG PO ×2 (08:30→14:56)
[2022-09-11] MEDS: cloNIDine HCL 0.2 MG TABLET PO ×3 (08:30→18:54)
[2022-09-11] MEDS: DULoxetine HCl 20 MG CAPSULE.DR PO (08:30)
[2022-09-11] MEDS: Multivitamin with Minerals Liq 15 ML LIQUID PO (08:30)
--- NOTE | 2022-09-11 16:26 | HO.PSYCHPN ---
Subjective Subjective Date of Service: 09/11/22 Reason For Visit: Depressive Disorder Subjective Notes: Conditional Voluntary Healthcare Proxy: No Guardianship: No Medical Problems Affecting Mental Status: No Interim History: Asking for an increase in pain medicine. Call to PCP office-current dose in place for a significant period of time, will keep dosing consistent. Agreeable to admit to a rest home. I still just want to -discussed a plan to make an attempt if discharged back to his one room situation. Tells team he will try to make it work at the rest home and will not harm himself when he has supports. Medication Compliance: Yes Side effects from medications: No Attending Groups: Intermittent Review of Systems Acute medical concerns: No Medical Review of Systems: unchanged Mental Status Exam Mental Status Exam Patient Appearance: Fatigued and Appropriate Patient Orientation: Person, Place, Time and Situation Level of Consciousness: Alert Patient Behavior: Appropriate, Dependent, Talkative, Cooperative, Anxious, Fearful, Fatigued, Distractible, Isolative and Good Eye Contact Mood Description: Depressed and Anxious Affect Description: Flat Patient Cognition Impaired: No Ability to Follow Directions: Good Speech Pattern: Spontaneous Speech Memory Description: Episodic Impaired Hallucinations: None Delusions: Not Present Thought Process: Rumination Thought Content: positive for Circumstantial, positive for Perseveration and positive for Suicidal Ideation (out of a structured care environment) Depressive Symptoms: Increased Anxiety, Feelings of Worthlessness, Hopelessness, Isolating-Friends/Family, Feelings of Guilt, Unhappiness, Thoughts of /Suicide (when out of a strucutured care environment) and Low Self Esteem Judgement: Fair Diagnostics Vital Signs (24Hr): Vital Signs - 24 hr 09/10/22 16:54 09/11/22 06:00 Temperature 97 F 97.4 F Pulse Rate 77 79 Respiratory Rate 18 14 Blood Pressure 102/63 144/81 H Pulse Oximetry 97 98 Oxygen Delivery Method Room Air Room Air Medications Medications Current Medications Acetaminophen (Acetaminophen 325 Mg Tablet) 650 mg PO Q6H PRN PRN Reason: Headache/Pain Mild Scale (1-3) Last Admin: 09/09/22 14:10 Dose: 650 mg Al Hydroxide/Mg Hydroxide (Magnesium Hydrox/Alum Hydrox 30 Ml Oral.Susp) 30 ml PO Q6H PRN PRN Reason: Heartburn/Nausea Clonidine HCl (Clonidine Hcl 0.2 Mg Tablet) 0.2 mg PO TID [facility]; Protocol Last Admin: 09/11/22 14:33 Dose: 0.2 mg Docusate Sodium (Docusate Sodium 100 Mg Capsule) 100 mg PO BID PRN PRN Reason: Constipation Last Admin: 09/05/22 18:57 Dose: 100 mg Duloxetine HCl (Duloxetine Hcl 20 Mg Capsule.Dr) 20 mg PO DAILY [facility] Last Admin: 09/11/22 08:30 Dose: 20 mg Hydroxyzine HCl (Hydroxyzine Hcl 25 Mg Tablet) 25 mg PO Q6H PRN PRN Reason: Anxiety Lisinopril (Lisinopril 5 Mg Tablet) 5 mg PO DAILY [facility] Last Admin: 09/11/22 08:29 Dose: 5 mg Magnesium Hydroxide (Milk Of Magnesia 30 Ml Oral.Susp) 30 ml PO DAILY PRN PRN Reason: Constipation Methadone HCl (Methadone Hcl 5 Mg Tablet) 5 mg PO Q8H PRN PRN Reason: Pain, Severe (Pain Scale 7-10) Last Admin: 09/11/22 15:51 Dose: 5 mg Nifedipine (Nifedipine Er 90 Mg Tab.Er.24) 90 mg PO DAILY [facility]; Protocol Last Admin: 09/11/22 08:29 Dose: 90 mg Oxycodone HCl (Oxycodone Hcl Immed Release 5 Mg Tablet) 10 mg PO BID PRN PRN Reason: Pain, Moderate (Pain Scale 4-6 Last Admin: 09/11/22 14:56 Dose: 10 mg Polyethylene Glycol (Polyethylene Glycol 3350 17 Gm Powd.Pack) 17 gm PO DAILY PRN PRN Reason: Constipation Thiamine HCl (Thiamine Hcl 100 Mg Tablet) 100 mg PO DAILY [facility] Last Admin: 09/11/22 08:29 Dose: 100 mg Trazodone HCl (Trazodone Hcl 50 Mg Tablet) 50 mg PO BEDTIME PRN PRN Reason: Insomnia Last Admin: 09/09/22 21:24 Dose: 50 mg Vitamin D (Cholecalciferol (Vitamin D3) 25 Mcg Tablet) 50 mcg PO DAILY [facility] Last Admin: 09/11/22 08:29 Dose: 50 mcg Allergies Allergies Allergy/AdvReac Type Severity Reaction Status Date / Time ergotamine [ERGOTAMINE] AdvReac Severe NAUSEA Verified 12/20/21 20:55 Assessment & Plan Assessment & Plan (1) Chronic pain: Status: Acute Code(s): G89.29 - Other chronic pain (2) Depressive disorder: Status: Acute Code(s): F32.A - Depression, unspecified (3) Opioid abuse: Status: Acute Code(s): F11.10 - Opioid abuse, uncomplicated Plan 67 yo male with chronic pain, multiple life losses and minimal supports, opiate dependence and recent SI with multiple plans due to poor pain control. Pt also exhibits some sx of MCI which his PCP, who will be terminating with him in October asks that we evaluate. Plan: Re-establish regime Collateral contact Dementia work up vs delirium from [facility] narcotic use. 09/05/22: Cymbalta restarted on admission PCP asks that we evaluate cognition-?MCI vs [facility] opiate use in an elder. MOCA initated. Explore new living situation options for Aaron 09/06 continue current tx plan 09/07 continue current tx plan; purposely trying to be gamey about suicidality 09/08/22- continue current plan of care- applications for longer term supported living in process. 09/09/22- continue current plan of care 09/10/22- Continue current plan of care-awaiting word from rest home applications. 09/11/22-Continue current plan. I spent minutes with the patient and/or on the patient floor today, greater than?50% of which was spent counseling/coordinating care. Patient educated on: therapeutic strategies Informed Consent: understands Reason for contiued inpatient stay Substantial Risk for: harm to self and med/psych decompensation
[2022-09-11 18:15] VITALS: BP 131/70; PULSE 73; TEMP 36.6
[2022-09-11 18:53] VITALS: BP 127/67; PULSE 83
[2022-09-12] MEDS: oxyCODONE HCl Immed Release 5 MG TABLET 10 MG PO ×2 (04:51→13:59)
--- NOTE | 2022-09-12 04:54 | PC.NURSE ---
Patient upset and agitated that oxycodone is ordered BID. Patient states that on the outside I get it every 4 to 6. I am going to kill this mother fucker. Do I get to see this asshole today . Pt educated he will see psychiatrist everyday while in patient on the unit. Pt accepted redirection.
[2022-09-12 06:00] VITALS: BP 149/81; PULSE 74; RESP 14; TEMP 36.4; O2SAT 98
[2022-09-12] MEDS: Cholecalciferol (Vitamin D3) 25 MCG TABLET 50 MCG PO (08:18)
[2022-09-12] MEDS: cloNIDine HCL 0.2 MG TABLET PO ×3 (08:18→19:16)
[2022-09-12] MEDS: Multivitamin with Minerals Liq 15 ML LIQUID PO (08:18)
[2022-09-12] MEDS: DULoxetine HCl 20 MG CAPSULE.DR PO (08:18)
[2022-09-12] MEDS: Thiamine HCL 100 MG TABLET PO (08:18)
[2022-09-12] MEDS: NIFEdipine ER 90 MG TAB.ER.24 PO (08:18)
[2022-09-12] MEDS: lisinopriL 5 MG TABLET PO (08:18)
--- NOTE | 2022-09-12 16:03 | P.PNPSI_ITS ---
Subjective Subjective Date of Service: 09/12/22 Reason For Visit: Depressive Disorder Subjective Notes: Conditional Voluntary Healthcare Proxy: No Guardianship: No Medical Problems Affecting Mental Status: No Interim History: - Pleased he will move to residential next week. -Agrees to increase Cymbalta to address depression, pain - Agrees to referral for consult for Right Hip -Review done with insurance-pt is covered until 09/15/22. Medication Compliance: Yes Side effects from medications: No Attending Groups: Intermittent Review of Systems Acute medical concerns: No Medical Review of Systems: unchanged Mental Status Exam Mental Status Exam Patient Appearance: Fatigued and Appropriate Patient Orientation: Person, Place, Time and Situation Level of Consciousness: Alert Patient Behavior: Appropriate, Dependent, Talkative, Cooperative, Anxious, Fearful, Fatigued, Distractible, Isolative and Good Eye Contact Mood Description: Depressed and Anxious Affect Description: Flat Patient Cognition Impaired: No Ability to Follow Directions: Good Speech Pattern: Spontaneous Speech Memory Description: Episodic Impaired Hallucinations: None Delusions: Not Present Thought Process: Rumination Thought Content: positive for Circumstantial, positive for Perseveration and positive for Suicidal Ideation (out of a structured care environment) Depressive Symptoms: Increased Anxiety, Feelings of Worthlessness, Hopelessness, Isolating-Friends/Family, Feelings of Guilt, Unhappiness, Thoughts of /Suicide (when out of a strucutured care environment) and Low Self Esteem Judgement: Fair Diagnostics Vital Signs (24Hr): Vital Signs - 24 hr 09/11/22 18:15 09/11/22 18:53 09/12/22 06:00 Temperature 97.8 F 97.6 F Pulse Rate 73 83 74 Respiratory Rate 14 Blood Pressure 131/70 127/67 149/81 H Pulse Oximetry 98 Oxygen Delivery Method Room Air Medications Medications Current Medications Acetaminophen (Acetaminophen 325 Mg Tablet) 650 mg PO Q6H PRN PRN Reason: Headache/Pain Mild Scale (1-3) Last Admin: 09/09/22 14:10 Dose: 650 mg Al Hydroxide/Mg Hydroxide (Magnesium Hydrox/Alum Hydrox 30 Ml Oral.Susp) 30 ml PO Q6H PRN PRN Reason: Heartburn/Nausea Clonidine HCl (Clonidine Hcl 0.2 Mg Tablet) 0.2 mg PO TID [place]; Protocol Last Admin: 09/12/22 13:59 Dose: 0.2 mg Docusate Sodium (Docusate Sodium 100 Mg Capsule) 100 mg PO BID PRN PRN Reason: Constipation Last Admin: 09/05/22 18:57 Dose: 100 mg Duloxetine HCl (Duloxetine Hcl 20 Mg Capsule.Dr) 20 mg PO DAILY [facility] Last Admin: 09/12/22 08:18 Dose: 20 mg Hydroxyzine HCl (Hydroxyzine Hcl 25 Mg Tablet) 25 mg PO Q6H PRN PRN Reason: Anxiety Lisinopril (Lisinopril 5 Mg Tablet) 5 mg PO DAILY [facility] Last Admin: 09/12/22 08:18 Dose: 5 mg Magnesium Hydroxide (Milk Of Magnesia 30 Ml Oral.Susp) 30 ml PO DAILY PRN PRN Reason: Constipation Methadone HCl (Methadone Hcl 5 Mg Tablet) 5 mg PO Q8H PRN PRN Reason: Pain, Severe (Pain Scale 7-10) Last Admin: 09/11/22 15:51 Dose: 5 mg Nifedipine (Nifedipine Er 90 Mg Tab.Er.24) 90 mg PO DAILY [facility]; Protocol Last Admin: 09/12/22 08:18 Dose: 90 mg Oxycodone HCl (Oxycodone Hcl Immed Release 5 Mg Tablet) 10 mg PO BID PRN PRN Reason: Pain, Moderate (Pain Scale 4-6 Last Admin: 09/12/22 13:59 Dose: 10 mg Polyethylene Glycol (Polyethylene Glycol 3350 17 Gm Powd.Pack) 17 gm PO DAILY PRN PRN Reason: Constipation Thiamine HCl (Thiamine Hcl 100 Mg Tablet) 100 mg PO DAILY [facility] Last Admin: 09/12/22 08:18 Dose: 100 mg Trazodone HCl (Trazodone Hcl 50 Mg Tablet) 50 mg PO BEDTIME PRN PRN Reason: Insomnia Last Admin: 09/09/22 21:24 Dose: 50 mg Vitamin D (Cholecalciferol (Vitamin D3) 25 Mcg Tablet) 50 mcg PO DAILY [facility] Last Admin: 09/12/22 08:18 Dose: 50 mcg Allergies Allergies Allergy/AdvReac Type Severity Reaction Status Date / Time ergotamine [ERGOTAMINE] AdvReac Severe NAUSEA Verified 12/20/21 20:55 Assessment & Plan Assessment & Plan (1) Chronic pain: Status: Acute Code(s): G89.29 - Other chronic pain (2) Depressive disorder: Status: Acute Code(s): F32.A - Depression, unspecified (3) Opioid abuse: Status: Acute Code(s): F11.10 - Opioid abuse, uncomplicated Plan 67 yo male with chronic pain, multiple life losses and minimal supports, opiate dependence and recent SI with multiple plans due to poor pain control. Pt also exhibits some sx of MCI which his PCP, who will be terminating with him in October asks that we evaluate. Plan: Re-establish regime Collateral contact Dementia work up vs delirium from skilled nursing narcotic use. 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 MOCA initated. Explore new living situation options for Aaron 09/06 continue current tx plan 09/07 continue current tx plan; purposely trying to be gamey about suicidality 09/08/22- continue current plan of care- applications for longer term supported living in process. 09/09/22- continue current plan of care 09/10/22- Continue current plan of care-awaiting word from rest home applications. 09/11/22-Continue current plan. 09/12/22- Increase Cymbalta to 40 mg daily Discharge planning for 09/17/22. I spent minutes with the patient and/or on the patient floor today, greater than?50% of which was spent counseling/coordinating care. Patient educated on: therapeutic strategies Informed Consent: understands Reason for contiued inpatient stay Substantial Risk for: harm to self and rapid decompensation
[2022-09-12 17:23] VITALS: BP 103/78; PULSE 87; RESP 16; TEMP 36.3; O2SAT 100
[2022-09-12] MEDS: methADONE HCl 5 MG TABLET PO (17:58)
[2022-09-13] MEDS: methADONE HCl 5 MG TABLET PO ×2 (01:55→16:20)
[2022-09-13] MEDS: oxyCODONE HCl Immed Release 5 MG TABLET 10 MG PO ×2 (01:55→14:07)
[2022-09-13] MEDS: hydrOXYzine HCL 25 MG TABLET PO (01:56)
[2022-09-13] MEDS: traZODone HCL 50 MG TABLET PO (01:56)
[2022-09-13 06:00] VITALS: BP 162/80; PULSE 86; RESP 14; TEMP 36.4
--- NOTE | 2022-09-13 08:35 | HO.PSYCHPN ---
Subjective Subjective Date of Service: 09/13/22 Reason For Visit: Depressive Disorder Subjective Notes: Conditional Voluntary Interim History: Patient was seen and discussed in rounds today. Records and plans were reviewed. He continues to be sad and depressed, mostly withdrawn. No behavioral issues. He is safe on the unit. Continues to endorse anxiety and depression. He did have a good day yesterday. No SI. Continues to have complaints of chronic pain with multiple musculoskeletal injuries. He is going to rest home next week. No changes were implemented today. He has been tolerating the increased Cymbalta with no side effects. Review of Systems Review of Systems Except for chronic musculoskeletal pain from injuries Yes all other systems are reviewed and are negative Mental Status Exam Mental Status Exam Patient Appearance: Fatigued and Appropriate Patient Orientation: Person, Place, Time and Situation Level of Consciousness: Alert Patient Behavior: Appropriate, Dependent, Talkative, Cooperative, Anxious, Fearful, Fatigued, Distractible, Isolative and Good Eye Contact Mood Description: Depressed and Anxious Affect Description: Flat Patient Cognition Impaired: No Ability to Follow Directions: Good Speech Pattern: Spontaneous Speech Memory Description: Episodic Impaired Hallucinations: None Delusions: Not Present Thought Process: Rumination Thought Content: positive for Circumstantial, positive for Perseveration and positive for Suicidal Ideation (out of a structured care environment) Depressive Symptoms: Increased Anxiety, Feelings of Worthlessness, Hopelessness, Isolating-Friends/Family, Feelings of Guilt, Unhappiness, Thoughts of /Suicide (when out of a strucutured care environment) and Low Self Esteem Judgement: Fair Diagnostics Vital Signs (24Hr): Vital Signs - 24 hr 09/12/22 17:23 Temperature 97.3 F Pulse Rate 87 Respiratory Rate 16 Blood Pressure 103/78 Pulse Oximetry 100 Oxygen Delivery Method Room Air Medications Medications Current Medications Acetaminophen (Acetaminophen 325 Mg Tablet) 650 mg PO Q6H PRN PRN Reason: Headache/Pain Mild Scale (1-3) Last Admin: 09/09/22 14:10 Dose: 650 mg Al Hydroxide/Mg Hydroxide (Magnesium Hydrox/Alum Hydrox 30 Ml Oral.Susp) 30 ml PO Q6H PRN PRN Reason: Heartburn/Nausea Clonidine HCl (Clonidine Hcl 0.2 Mg Tablet) 0.2 mg PO TID [place]; Protocol Last Admin: 09/12/22 19:16 Dose: 0.2 mg Docusate Sodium (Docusate Sodium 100 Mg Capsule) 100 mg PO BID PRN PRN Reason: Constipation Last Admin: 09/05/22 18:57 Dose: 100 mg Duloxetine HCl (Duloxetine Hcl 20 Mg Capsule.Dr) 40 mg PO DAILY [facility] Hydroxyzine HCl (Hydroxyzine Hcl 25 Mg Tablet) 25 mg PO Q6H PRN PRN Reason: Anxiety Last Admin: 09/13/22 01:56 Dose: 25 mg Lisinopril (Lisinopril 5 Mg Tablet) 5 mg PO DAILY [facility] Last Admin: 09/12/22 08:18 Dose: 5 mg Magnesium Hydroxide (Milk Of Magnesia 30 Ml Oral.Susp) 30 ml PO DAILY PRN PRN Reason: Constipation Methadone HCl (Methadone Hcl 5 Mg Tablet) 5 mg PO Q8H PRN PRN Reason: Pain, Severe (Pain Scale 7-10) Last Admin: 09/13/22 01:55 Dose: 5 mg Nifedipine (Nifedipine Er 90 Mg Tab.Er.24) 90 mg PO DAILY [facility]; Protocol Last Admin: 09/12/22 08:18 Dose: 90 mg Oxycodone HCl (Oxycodone Hcl Immed Release 5 Mg Tablet) 10 mg PO BID PRN PRN Reason: Pain, Moderate (Pain Scale 4-6 Last Admin: 09/13/22 01:55 Dose: 10 mg Polyethylene Glycol (Polyethylene Glycol 3350 17 Gm Powd.Pack) 17 gm PO DAILY PRN PRN Reason: Constipation Thiamine HCl (Thiamine Hcl 100 Mg Tablet) 100 mg PO DAILY [facility] Last Admin: 09/12/22 08:18 Dose: 100 mg Trazodone HCl (Trazodone Hcl 50 Mg Tablet) 50 mg PO BEDTIME PRN PRN Reason: Insomnia Last Admin: 09/13/22 01:56 Dose: 50 mg Vitamin D (Cholecalciferol (Vitamin D3) 25 Mcg Tablet) 50 mcg PO DAILY [facility] Last Admin: 09/12/22 08:18 Dose: 50 mcg Allergies Allergies Allergy/AdvReac Type Severity Reaction Status Date / Time ergotamine [ERGOTAMINE] AdvReac Severe NAUSEA Verified 12/20/21 20:55 Assessment & Plan Assessment & Plan (1) Chronic pain: Status: Acute Code(s): G89.29 - Other chronic pain (2) Depressive disorder: Status: Acute Code(s): F32.A - Depression, unspecified (3) Opioid abuse: Status: Acute Code(s): F11.10 - Opioid abuse, uncomplicated Plan 67 yo male with chronic pain, multiple life losses and minimal supports, opiate dependence and recent SI with multiple plans due to poor pain control. Pt also exhibits some sx of MCI which his PCP, who will be terminating with him in October asks that we evaluate. 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 09/05/22: Cymbalta restarted on admission PCP asks that we evaluate cognition-?MCI vs [facility] opiate use in an elder. MOCA initated. Explore new living situation options for Aaron 09/06 continue current tx plan 09/07 continue current tx plan; purposely trying to be gamey about suicidality 09/08/22- continue current plan of care- applications for longer term supported living in process. 09/09/22- continue current plan of care 09/10/22- Continue current plan of care-awaiting word from rest home applications. 09/11/22-Continue current plan. 09/12/22- Increase Cymbalta to 40 mg daily Discharge planning for 09/17/22. 09/13: Continue current regimen and plans. No changes were made today I spent minutes with the patient and/or on the patient floor today, greater than?50% of which was spent counseling/coordinating care. Reason for contiued inpatient stay Substantial Risk for: harm to self and med/psych decompensation
[2022-09-13] MEDS: cloNIDine HCL 0.2 MG TABLET PO ×3 (08:53→21:16)
[2022-09-13] MEDS: Cholecalciferol (Vitamin D3) 25 MCG TABLET 50 MCG PO (08:53)
[2022-09-13] MEDS: DULoxetine HCl 20 MG CAPSULE.DR 40 MG PO (08:53)
[2022-09-13] MEDS: NIFEdipine ER 90 MG TAB.ER.24 PO (08:53)
[2022-09-13] MEDS: lisinopriL 5 MG TABLET PO (08:53)
[2022-09-13] MEDS: Thiamine HCL 100 MG TABLET PO (08:53)
[2022-09-13] MEDS: Multivitamin with Minerals Liq 15 ML LIQUID PO (08:54)
[2022-09-13 15:56] VITALS: BP 105/57; PULSE 73; TEMP 37.3
[2022-09-13 21:16] VITALS: BP 110/60; PULSE 71
[2022-09-14] MEDS: Acetaminophen 325 MG TABLET 650 MG PO (04:48)
[2022-09-14] MEDS: hydrOXYzine HCL 25 MG TABLET PO (04:49)
[2022-09-14] MEDS: traZODone HCL 50 MG TABLET PO (04:49)
[2022-09-14 06:00] VITALS: BP 160/80; PULSE 88; RESP 14; TEMP 36.6; O2SAT 98
--- NOTE | 2022-09-14 08:08 | P.PNPSI_ITS ---
Subjective Subjective Date of Service: 09/14/22 Reason For Visit: Depressive Disorder Subjective Notes: Conditional Voluntary Interim History: Patient was seen and discussed in rounds today. Records and plans were reviewed. He has been fairly stable and is doing well. His pain medications were renewed this morning. He has been social, pleasant and visible. He is come and medication compliant. No SI. Eating and sleeping adequately. No new additions or changes were made today Medication Compliance: Yes Side effects from medications: No Attending Groups: Intermittent Review of Systems Review of Systems Except for chronic musculoskeletal pain from injuries Yes all other systems are reviewed and are negative Mental Status Exam Mental Status Exam Patient Appearance: Fatigued and Appropriate Patient Orientation: Person, Place, Time and Situation Level of Consciousness: Alert Patient Behavior: Appropriate, Dependent, Talkative, Cooperative, Anxious, Fearful, Fatigued, Distractible, Isolative and Good Eye Contact Mood Description: Depressed and Anxious Affect Description: Flat Patient Cognition Impaired: No Ability to Follow Directions: Good Speech Pattern: Spontaneous Speech Memory Description: Episodic Impaired Hallucinations: None Delusions: Not Present Thought Process: Rumination Thought Content: positive for Circumstantial, positive for Perseveration and positive for Suicidal Ideation (out of a structured care environment) Depressive Symptoms: Increased Anxiety, Feelings of Worthlessness, Hopelessness, Isolating-Friends/Family, Feelings of Guilt, Unhappiness, Thoughts of /Suicide (when out of a strucutured care environment) and Low Self Esteem Judgement: Fair Diagnostics Vital Signs (24Hr): Vital Signs - 24 hr 09/13/22 15:56 09/13/22 21:16 Temperature 99.1 F Pulse Rate 73 71 Blood Pressure 105/57 L 110/60 Medications Medications Current Medications Acetaminophen (Acetaminophen 325 Mg Tablet) 650 mg PO Q6H PRN PRN Reason: Headache/Pain Mild Scale (1-3) Last Admin: 09/14/22 04:48 Dose: 650 mg Al Hydroxide/Mg Hydroxide (Magnesium Hydrox/Alum Hydrox 30 Ml Oral.Susp) 30 ml PO Q6H PRN PRN Reason: Heartburn/Nausea Clonidine HCl (Clonidine Hcl 0.2 Mg Tablet) 0.2 mg PO TID [place]; Protocol Last Admin: 09/13/22 21:16 Dose: 0.2 mg Docusate Sodium (Docusate Sodium 100 Mg Capsule) 100 mg PO BID PRN PRN Reason: Constipation Last Admin: 09/05/22 18:57 Dose: 100 mg Duloxetine HCl (Duloxetine Hcl 20 Mg Capsule.Dr) 40 mg PO DAILY [facility] Last Admin: 09/13/22 08:53 Dose: 40 mg Hydroxyzine HCl (Hydroxyzine Hcl 25 Mg Tablet) 25 mg PO Q6H PRN PRN Reason: Anxiety Last Admin: 09/14/22 04:49 Dose: 25 mg Lisinopril (Lisinopril 5 Mg Tablet) 5 mg PO DAILY [facility] Last Admin: 09/13/22 08:53 Dose: 5 mg Magnesium Hydroxide (Milk Of Magnesia 30 Ml Oral.Susp) 30 ml PO DAILY PRN PRN Reason: Constipation Methadone HCl (Methadone Hcl 5 Mg Tablet) 5 mg PO Q8H PRN PRN Reason: Pain, Moderate (Pain Scale 4-6 Nifedipine (Nifedipine Er 90 Mg Tab.Er.24) 90 mg PO DAILY [facility]; Protocol Last Admin: 09/13/22 08:53 Dose: 90 mg Oxycodone HCl (Oxycodone Hcl Immed Release 5 Mg Tablet) 10 mg PO BID PRN PRN Reason: Pain, Moderate (Pain Scale 4-6 Polyethylene Glycol (Polyethylene Glycol 3350 17 Gm Powd.Pack) 17 gm PO DAILY PRN PRN Reason: Constipation Thiamine HCl (Thiamine Hcl 100 Mg Tablet) 100 mg PO DAILY [facility] Last Admin: 09/13/22 08:53 Dose: 100 mg Trazodone HCl (Trazodone Hcl 50 Mg Tablet) 50 mg PO BEDTIME PRN PRN Reason: Insomnia Last Admin: 09/14/22 04:49 Dose: 50 mg Vitamin D (Cholecalciferol (Vitamin D3) 25 Mcg Tablet) 50 mcg PO DAILY [facility] Last Admin: 09/13/22 08:53 Dose: 50 mcg Allergies Allergies Allergy/AdvReac Type Severity Reaction Status Date / Time ergotamine [ERGOTAMINE] AdvReac Severe NAUSEA Verified 12/20/21 20:55 Assessment & Plan Assessment & Plan (1) Chronic pain: Status: Acute Code(s): G89.29 - Other chronic pain (2) Depressive disorder: Status: Acute Code(s): F32.A - Depression, unspecified (3) Opioid abuse: Status: Acute Code(s): F11.10 - Opioid abuse, uncomplicated Plan 67 yo male with chronic pain, multiple life losses and minimal supports, opiate dependence and recent SI with multiple plans due to poor pain control. Pt also exhibits some sx of MCI which his PCP, who will be terminating with him in October asks that we evaluate. 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 09/05/22: Cymbalta restarted on admission PCP asks that we evaluate cognition-?MCI vs care home opiate use in an elder. MOCA initated. Explore new living situation options for Aaron 09/06 continue current tx plan 09/07 continue current tx plan; purposely trying to be gamey about suicidality 09/08/22- continue current plan of care- applications for longer term supported living in process. 09/09/22- continue current plan of care 09/10/22- Continue current plan of care-awaiting word from rest home applications. 09/11/22-Continue current plan. 09/12/22- Increase Cymbalta to 40 mg daily Discharge planning for 09/17/22. 09/13: Continue current regimen and plans. No changes were made today 09/14: Continue current regimen and plans. Two pain medications, methadone and oxycodone were renewed I spent minutes with the patient and/or on the patient floor today, greater than?50% of which was spent counseling/coordinating care. Reason for contiued inpatient stay Substantial Risk for: other
[2022-09-14] MEDS: oxyCODONE HCl Immed Release 5 MG TABLET 10 MG PO ×2 (08:10→16:06)
[2022-09-14] MEDS: DULoxetine HCl 20 MG CAPSULE.DR 40 MG PO (08:10)
[2022-09-14] MEDS: cloNIDine HCL 0.2 MG TABLET PO ×3 (08:10→20:34)
[2022-09-14] MEDS: NIFEdipine ER 90 MG TAB.ER.24 PO (08:10)
[2022-09-14] MEDS: Cholecalciferol (Vitamin D3) 25 MCG TABLET 50 MCG PO (08:10)
[2022-09-14] MEDS: lisinopriL 5 MG TABLET PO (08:11)
[2022-09-14] MEDS: Thiamine HCL 100 MG TABLET PO (08:11)
[2022-09-14] MEDS: Multivitamin with Minerals Liq 15 ML LIQUID PO (08:13)
[2022-09-14 16:05] VITALS: BP 117/61; PULSE 72; TEMP 36.4
[2022-09-14] MEDS: methADONE HCl 5 MG TABLET PO (20:34)
[2022-09-15] MEDS: oxyCODONE HCl Immed Release 5 MG TABLET 10 MG PO ×2 (05:34→14:17)
[2022-09-15 06:00] VITALS: BP 165/94; PULSE 90; RESP 16; TEMP 36.6; O2SAT 98
[2022-09-15] MEDS: methADONE HCl 5 MG TABLET PO ×2 (06:03→20:28)
[2022-09-15] MEDS: Cholecalciferol (Vitamin D3) 25 MCG TABLET 50 MCG PO (08:13)
[2022-09-15] MEDS: cloNIDine HCL 0.2 MG TABLET PO ×3 (08:13→20:28)
[2022-09-15] MEDS: lisinopriL 5 MG TABLET PO (08:13)
[2022-09-15] MEDS: DULoxetine HCl 20 MG CAPSULE.DR 40 MG PO (08:13)
[2022-09-15] MEDS: NIFEdipine ER 90 MG TAB.ER.24 PO (08:13)
[2022-09-15] MEDS: Thiamine HCL 100 MG TABLET PO (08:13)
[2022-09-15] MEDS: Multivitamin with Minerals Liq 15 ML LIQUID PO (08:17)
--- NOTE | 2022-09-15 17:26 | P.PNPSI_ITS ---
Subjective Subjective Date of Service: 09/15/22 Reason For Visit: Depressive Disorder Subjective Notes: Conditional Voluntary Healthcare Proxy: No Guardianship: No Medical Problems Affecting Mental Status: No Interim History: Tolerating recent Cymbalta increase. Planning discharge for this week. Continues with SI- however, not when I am with others Pleased and grateful for team helping him to find a placement- they have given me hope Pain managable at a 5 he reports Interactive in the milieu and with his peer group. Medication Compliance: Yes Side effects from medications: No Attending Groups: Yes Review of Systems Acute medical concerns: No Medical Review of Systems: unchanged Mental Status Exam Mental Status Exam Patient Appearance: Fatigued and Appropriate Patient Orientation: Person, Place, Time and Situation Level of Consciousness: Alert Patient Behavior: Appropriate, Dependent, Talkative, Cooperative, Anxious, Fearful, Fatigued, Distractible and Good Eye Contact Mood Description: Depressed and Anxious Affect Description: Flat Patient Cognition Impaired: No Ability to Follow Directions: Good Speech Pattern: Spontaneous Speech Memory Description: Episodic Impaired Hallucinations: None Delusions: Not Present Thought Process: Rumination Thought Content: positive for Circumstantial, positive for Perseveration and positive for Suicidal Ideation (out of a structured care environment) Depressive Symptoms: Increased Anxiety, Feelings of Worthlessness, Hopelessness, Isolating-Friends/Family, Feelings of Guilt, Unhappiness, Thoughts of /Suicide (when out of a strucutured care environment) and Low Self Esteem Judgement: Fair Diagnostics Vital Signs (24Hr): Vital Signs - 24 hr 09/15/22 06:00 Temperature 97.8 F Pulse Rate 90 Respiratory Rate 16 Blood Pressure 165/94 H Pulse Oximetry 98 Oxygen Delivery Method Room Air Medications Medications Current Medications Acetaminophen (Acetaminophen 325 Mg Tablet) 650 mg PO Q6H PRN PRN Reason: Headache/Pain Mild Scale (1-3) Last Admin: 09/14/22 04:48 Dose: 650 mg Al Hydroxide/Mg Hydroxide (Magnesium Hydrox/Alum Hydrox 30 Ml Oral.Susp) 30 ml PO Q6H PRN PRN Reason: Heartburn/Nausea Clonidine HCl (Clonidine Hcl 0.2 Mg Tablet) 0.2 mg PO TID [place]; Protocol Last Admin: 09/15/22 14:15 Dose: 0.2 mg Docusate Sodium (Docusate Sodium 100 Mg Capsule) 100 mg PO BID PRN PRN Reason: Constipation Last Admin: 09/05/22 18:57 Dose: 100 mg Duloxetine HCl (Duloxetine Hcl 20 Mg Capsule.Dr) 40 mg PO DAILY [facility] Last Admin: 09/15/22 08:13 Dose: 40 mg Hydroxyzine HCl (Hydroxyzine Hcl 25 Mg Tablet) 25 mg PO Q6H PRN PRN Reason: Anxiety Last Admin: 09/14/22 04:49 Dose: 25 mg Lisinopril (Lisinopril 5 Mg Tablet) 5 mg PO DAILY [facility] Last Admin: 09/15/22 08:13 Dose: 5 mg Magnesium Hydroxide (Milk Of Magnesia 30 Ml Oral.Susp) 30 ml PO DAILY PRN PRN Reason: Constipation Methadone HCl (Methadone Hcl 5 Mg Tablet) 5 mg PO Q8H PRN PRN Reason: Pain, Moderate (Pain Scale 4-6 Last Admin: 09/15/22 06:03 Dose: 5 mg Nifedipine (Nifedipine Er 90 Mg Tab.Er.24) 90 mg PO DAILY [facility]; Protocol Last Admin: 09/15/22 08:13 Dose: 90 mg Oxycodone HCl (Oxycodone Hcl Immed Release 5 Mg Tablet) 10 mg PO BID PRN PRN Reason: Pain, Moderate (Pain Scale 4-6 Last Admin: 09/15/22 14:17 Dose: 10 mg Polyethylene Glycol (Polyethylene Glycol 3350 17 Gm Powd.Pack) 17 gm PO DAILY PRN PRN Reason: Constipation Thiamine HCl (Thiamine Hcl 100 Mg Tablet) 100 mg PO DAILY [facility] Last Admin: 09/15/22 08:13 Dose: 100 mg Trazodone HCl (Trazodone Hcl 50 Mg Tablet) 50 mg PO BEDTIME PRN PRN Reason: Insomnia Last Admin: 09/14/22 04:49 Dose: 50 mg Vitamin D (Cholecalciferol (Vitamin D3) 25 Mcg Tablet) 50 mcg PO DAILY [facility] Last Admin: 09/15/22 08:13 Dose: 50 mcg Allergies Allergies Allergy/AdvReac Type Severity Reaction Status Date / Time ergotamine [ERGOTAMINE] AdvReac Severe NAUSEA Verified 12/20/21 20:55 Assessment & Plan Assessment & Plan (1) Chronic pain: Status: Acute Code(s): G89.29 - Other chronic pain (2) Depressive disorder: Status: Acute Code(s): F32.A - Depression, unspecified (3) Opioid abuse: Status: Acute Code(s): F11.10 - Opioid abuse, uncomplicated Plan 67 yo male with chronic pain, multiple life losses and minimal supports, opiate dependence and recent SI with multiple plans due to poor pain control. Pt also exhibits some sx of MCI which his PCP, who will be terminating with him in October asks that we evaluate. Plan: Re-establish regime Collateral contact Dementia work up vs delirium from longterm narcotic use. 09/05/22: Cymbalta restarted on admission PCP asks that we evaluate cognition-?MCI vs solution architect opiate use in an elder. MOCA initated. Explore new living situation options for Aaron 09/06 continue current tx plan 09/07 continue current tx plan; purposely trying to be gamey about suicidality 09/08/22- continue current plan of care- applications for longer term supported living in process. 09/09/22- continue current plan of care 09/10/22- Continue current plan of care-awaiting word from rest home applications. 09/11/22-Continue current plan. 09/12/22- Increase Cymbalta to 40 mg daily Discharge planning for 09/17/22. 09/13: Continue current regimen and plans. No changes were made today 09/14: Continue current regimen and plans. Two pain medications, methadone and oxycodone were renewed 09/15/22: Continue current plan of care. Discharge to rest home this week. I spent minutes with the patient and/or on the patient floor today, greater than?50% of which was spent counseling/coordinating care. Patient educated on: therapeutic strategies Informed Consent: understands Reason for contiued inpatient stay Substantial Risk for: harm to self and rapid decompensation
[2022-09-15 20:28] VITALS: BP 120/63; PULSE 85
[2022-09-15] MEDS: traZODone HCL 50 MG TABLET PO (21:11)
[2022-09-16] MEDS: oxyCODONE HCl Immed Release 5 MG TABLET 10 MG PO ×3 (04:41→19:47)
[2022-09-16] MEDS: methADONE HCl 5 MG TABLET PO ×2 (06:03→14:33)
[2022-09-16 07:50] VITALS: BP 146/89; PULSE 80; TEMP 36.4; O2SAT 99
[2022-09-16] MEDS: Cholecalciferol (Vitamin D3) 25 MCG TABLET 50 MCG PO (08:08)
[2022-09-16] MEDS: NIFEdipine ER 90 MG TAB.ER.24 PO (08:09)
[2022-09-16] MEDS: cloNIDine HCL 0.2 MG TABLET PO ×3 (08:09→19:41)
[2022-09-16] MEDS: Thiamine HCL 100 MG TABLET PO (08:09)
[2022-09-16] MEDS: lisinopriL 5 MG TABLET PO (08:09)
[2022-09-16] MEDS: DULoxetine HCl 20 MG CAPSULE.DR 40 MG PO (08:09)
[2022-09-16] MEDS: Multivitamin with Minerals Liq 15 ML LIQUID PO (08:11)
[2022-09-16 18:00] VITALS: BP 126/82; PULSE 71; RESP 18; TEMP 36.4; O2SAT 98
--- NOTE | 2022-09-16 20:06 | P.PNPSI_ITS ---
Subjective Subjective Date of Service: 09/16/22 Reason For Visit: Depressive Disorder Subjective Notes: Conditional Voluntary Healthcare Proxy: No Guardianship: No Medical Problems Affecting Mental Status: No Interim History: Preparing for discharge. Today, pt reports no current questions or concerns. He does report some apprehension regarding upcoming transition. Plans to discharge with his new team on 09/17. Medication Compliance: Yes Side effects from medications: No Attending Groups: Intermittent Review of Systems Acute medical concerns: No Medical Review of Systems: unchanged Mental Status Exam Mental Status Exam Patient Appearance: Fatigued and Appropriate Patient Orientation: Person, Place, Time and Situation Level of Consciousness: Alert Patient Behavior: Appropriate, Dependent, Talkative, Cooperative, Anxious, Fearful, Fatigued, Distractible and Good Eye Contact Mood Description: Depressed and Anxious Affect Description: Flat Patient Cognition Impaired: No Ability to Follow Directions: Good Speech Pattern: Spontaneous Speech Memory Description: Episodic Impaired Hallucinations: None Delusions: Not Present Thought Process: Rumination Thought Content: positive for Circumstantial, positive for Perseveration and positive for Suicidal Ideation (out of a structured care environment) Depressive Symptoms: Increased Anxiety, Feelings of Worthlessness, Hopelessness, Isolating-Friends/Family, Feelings of Guilt, Unhappiness, Thoughts of /Suicide (when out of a strucutured care environment) and Low Self Esteem Judgement: Fair Diagnostics Vital Signs (24Hr): Vital Signs - 24 hr 09/15/22 20:28 09/16/22 07:50 09/16/22 18:00 Temperature 97.5 F 97.5 F Pulse Rate 85 80 71 Respiratory Rate 18 Blood Pressure 120/63 146/89 H 126/82 Pulse Oximetry 99 98 Oxygen Delivery Method Room Air Room Air Medications Medications Current Medications Acetaminophen (Acetaminophen 325 Mg Tablet) 650 mg PO Q6H PRN PRN Reason: Headache/Pain Mild Scale (1-3) Last Admin: 09/14/22 04:48 Dose: 650 mg Al Hydroxide/Mg Hydroxide (Magnesium Hydrox/Alum Hydrox 30 Ml Oral.Susp) 30 ml PO Q6H PRN PRN Reason: Heartburn/Nausea Clonidine HCl (Clonidine Hcl 0.2 Mg Tablet) 0.2 mg PO TID [place]; Protocol Last Admin: 09/16/22 19:41 Dose: 0.2 mg Docusate Sodium (Docusate Sodium 100 Mg Capsule) 100 mg PO BID PRN PRN Reason: Constipation Last Admin: 09/05/22 18:57 Dose: 100 mg Duloxetine HCl (Duloxetine Hcl 20 Mg Capsule.Dr) 40 mg PO DAILY [facility] Last Admin: 09/16/22 08:09 Dose: 40 mg Hydroxyzine HCl (Hydroxyzine Hcl 25 Mg Tablet) 25 mg PO Q6H PRN PRN Reason: Anxiety Last Admin: 09/14/22 04:49 Dose: 25 mg Lisinopril (Lisinopril 5 Mg Tablet) 5 mg PO DAILY [facility] Last Admin: 09/16/22 08:09 Dose: 5 mg Magnesium Hydroxide (Milk Of Magnesia 30 Ml Oral.Susp) 30 ml PO DAILY PRN PRN Reason: Constipation Methadone HCl (Methadone Hcl 5 Mg Tablet) 5 mg PO Q8H PRN PRN Reason: Pain, Moderate (Pain Scale 4-6 Last Admin: 09/16/22 14:33 Dose: 5 mg Nifedipine (Nifedipine Er 90 Mg Tab.Er.24) 90 mg PO DAILY [facility]; Protocol Last Admin: 09/16/22 08:09 Dose: 90 mg Oxycodone HCl (Oxycodone Hcl Immed Release 5 Mg Tablet) 10 mg PO BID PRN PRN Reason: Pain, Moderate (Pain Scale 4-6 Last Admin: 09/16/22 19:47 Dose: 10 mg Polyethylene Glycol (Polyethylene Glycol 3350 17 Gm Powd.Pack) 17 gm PO DAILY PRN PRN Reason: Constipation Thiamine HCl (Thiamine Hcl 100 Mg Tablet) 100 mg PO DAILY [facility] Last Admin: 09/16/22 08:09 Dose: 100 mg Trazodone HCl (Trazodone Hcl 50 Mg Tablet) 50 mg PO BEDTIME PRN PRN Reason: Insomnia Last Admin: 09/15/22 21:11 Dose: 50 mg Vitamin D (Cholecalciferol (Vitamin D3) 25 Mcg Tablet) 50 mcg PO DAILY [facility] Last Admin: 09/16/22 08:08 Dose: 50 mcg Allergies Allergies Allergy/AdvReac Type Severity Reaction Status Date / Time ergotamine [ERGOTAMINE] AdvReac Severe NAUSEA Verified 12/20/21 20:55 Assessment & Plan Assessment & Plan (1) Chronic pain: Status: Acute Code(s): G89.29 - Other chronic pain (2) Depressive disorder: Status: Acute Code(s): F32.A - Depression, unspecified (3) Opioid abuse: Status: Acute Code(s): F11.10 - Opioid abuse, uncomplicated Plan 67 yo male with chronic pain, multiple life losses and minimal supports, opiate dependence and recent SI with multiple plans due to poor pain control. Pt also exhibits some sx of MCI which his PCP, who will be terminating with him in October asks that we evaluate. Plan: Re-establish regime Collateral contact Dementia work up vs delirium from long term care pharmacist narcotic use. 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 MOCA initated. Explore new living situation options for Aaron 09/06 continue current tx plan 09/07 continue current tx plan; purposely trying to be gamey about suicidality 09/08/22- continue current plan of care- applications for longer term supported living in process. 09/09/22- continue current plan of care 09/10/22- Continue current plan of care-awaiting word from rest home applications. 09/11/22-Continue current plan. 09/12/22- Increase Cymbalta to 40 mg daily Discharge planning for 09/17/22. 09/13: Continue current regimen and plans. No changes were made today 09/14: Continue current regimen and plans. Two pain medications, methadone and oxycodone were renewed 09/16/22- Discharge planned for 09/18/22. No current changes to regime or plan of care. I spent minutes with the patient and/or on the patient floor today, greater than?50% of which was spent counseling/coordinating care. Informed Consent: understands Reason for contiued inpatient stay Substantial Risk for: harm to self and rapid decompensation
[2022-09-17] MEDS: oxyCODONE HCl Immed Release 5 MG TABLET 10 MG PO ×3 (03:00→22:31)
--- NOTE | 2022-09-17 03:33 | PC.NURSE ---
PT STATED TO RN IF I HAD A GUN, IT WOULD BE ALL OVER ALREADY
[2022-09-17 06:00] VITALS: BP 160/97; PULSE 93; TEMP 35.9; O2SAT 97
[2022-09-17] MEDS: Multivitamin with Minerals Liq 15 ML LIQUID PO (08:09)
[2022-09-17] MEDS: DULoxetine HCl 20 MG CAPSULE.DR 40 MG PO (08:09)
[2022-09-17] MEDS: cloNIDine HCL 0.2 MG TABLET PO ×3 (08:10→20:32)
[2022-09-17] MEDS: Thiamine HCL 100 MG TABLET PO (08:11)
[2022-09-17] MEDS: lisinopriL 5 MG TABLET PO (08:11)
[2022-09-17] MEDS: Cholecalciferol (Vitamin D3) 25 MCG TABLET 50 MCG PO (08:11)
[2022-09-17] MEDS: NIFEdipine ER 90 MG TAB.ER.24 PO (08:11)
[2022-09-17] MEDS: methADONE HCl 5 MG TABLET PO ×2 (12:28→20:32)
--- NOTE | 2022-09-17 16:13 | HO.PSYCHPN ---
Subjective Subjective Date of Service: 09/17/22 Reason For Visit: Depressive Disorder Subjective Notes: Conditional Voluntary Healthcare Proxy: No Guardianship: No Medical Problems Affecting Mental Status: No Interim History: Expressed some apprehension regarding transfer. Asks if it will go smoothly, meds, bed etc. Discussed that it may take a day to make sure all is accurate, however [facility] [place] teams to clarify and make changes if needed. Overall feeling positive he reports about his transfer. Medication Compliance: Yes Side effects from medications: No Attending Groups: Intermittent Review of Systems Acute medical concerns: No Medical Review of Systems: unchanged Mental Status Exam Mental Status Exam Patient Appearance: Fatigued and Appropriate Patient Orientation: Person, Place, Time and Situation Level of Consciousness: Alert Patient Behavior: Appropriate, Dependent, Talkative, Cooperative, Anxious, Fearful, Fatigued, Distractible and Good Eye Contact Mood Description: Depressed and Anxious Affect Description: Flat Patient Cognition Impaired: No Ability to Follow Directions: Good Speech Pattern: Spontaneous Speech Memory Description: Episodic Impaired Hallucinations: None Delusions: Not Present Thought Process: Rumination Thought Content: positive for Circumstantial, positive for Perseveration and positive for Suicidal Ideation (out of a structured care environment) Depressive Symptoms: Increased Anxiety, Feelings of Worthlessness, Hopelessness, Isolating-Friends/Family, Feelings of Guilt, Unhappiness, Thoughts of /Suicide (when out of a strucutured care environment) and Low Self Esteem Judgement: Fair Diagnostics Vital Signs (24Hr): Vital Signs - 24 hr 09/16/22 18:00 09/17/22 06:00 Temperature 97.5 F 96.6 F L Pulse Rate 71 93 Respiratory Rate 18 Blood Pressure 126/82 160/97 H Pulse Oximetry 98 97 Oxygen Delivery Method Room Air Room Air Medications Medications Current Medications Acetaminophen (Acetaminophen 325 Mg Tablet) 650 mg PO Q6H PRN PRN Reason: Headache/Pain Mild Scale (1-3) Last Admin: 09/14/22 04:48 Dose: 650 mg Al Hydroxide/Mg Hydroxide (Magnesium Hydrox/Alum Hydrox 30 Ml Oral.Susp) 30 ml PO Q6H PRN PRN Reason: Heartburn/Nausea Clonidine HCl (Clonidine Hcl 0.2 Mg Tablet) 0.2 mg PO TID [place]; Protocol Last Admin: 09/17/22 14:40 Dose: 0.2 mg Docusate Sodium (Docusate Sodium 100 Mg Capsule) 100 mg PO BID PRN PRN Reason: Constipation Last Admin: 09/05/22 18:57 Dose: 100 mg Duloxetine HCl (Duloxetine Hcl 20 Mg Capsule.Dr) 40 mg PO DAILY [facility] Last Admin: 09/17/22 08:09 Dose: 40 mg Hydroxyzine HCl (Hydroxyzine Hcl 25 Mg Tablet) 25 mg PO Q6H PRN PRN Reason: Anxiety Last Admin: 09/14/22 04:49 Dose: 25 mg Lisinopril (Lisinopril 5 Mg Tablet) 5 mg PO DAILY [facility] Last Admin: 09/17/22 08:11 Dose: 5 mg Magnesium Hydroxide (Milk Of Magnesia 30 Ml Oral.Susp) 30 ml PO DAILY PRN PRN Reason: Constipation Methadone HCl (Methadone Hcl 5 Mg Tablet) 5 mg PO Q8H PRN PRN Reason: Pain, Moderate (Pain Scale 4-6 Last Admin: 09/17/22 12:28 Dose: 5 mg Nifedipine (Nifedipine Er 90 Mg Tab.Er.24) 90 mg PO DAILY [facility]; Protocol Last Admin: 09/17/22 08:11 Dose: 90 mg Oxycodone HCl (Oxycodone Hcl Immed Release 5 Mg Tablet) 10 mg PO BID PRN PRN Reason: Pain, Moderate (Pain Scale 4-6 Last Admin: 09/17/22 03:00 Dose: 10 mg Polyethylene Glycol (Polyethylene Glycol 3350 17 Gm Powd.Pack) 17 gm PO DAILY PRN PRN Reason: Constipation Thiamine HCl (Thiamine Hcl 100 Mg Tablet) 100 mg PO DAILY [facility] Last Admin: 09/17/22 08:11 Dose: 100 mg Trazodone HCl (Trazodone Hcl 50 Mg Tablet) 50 mg PO BEDTIME PRN PRN Reason: Insomnia Last Admin: 09/15/22 21:11 Dose: 50 mg Vitamin D (Cholecalciferol (Vitamin D3) 25 Mcg Tablet) 50 mcg PO DAILY [facility] Last Admin: 09/17/22 08:11 Dose: 50 mcg Allergies Allergies Allergy/AdvReac Type Severity Reaction Status Date / Time ergotamine [ERGOTAMINE] AdvReac Severe NAUSEA Verified 12/20/21 20:55 Assessment & Plan Assessment & Plan (1) Chronic pain: Status: Acute Code(s): G89.29 - Other chronic pain (2) Depressive disorder: Status: Acute Code(s): F32.A - Depression, unspecified (3) Opioid abuse: Status: Acute Code(s): F11.10 - Opioid abuse, uncomplicated Plan 67 yo male with chronic pain, multiple life losses and minimal supports, opiate dependence and recent SI with multiple plans due to poor pain control. Pt also exhibits some sx of MCI which his PCP, who will be terminating with him in October asks that we evaluate. Plan: Re-establish regime Collateral contact Dementia work up vs delirium from [facility] narcotic use. 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 MOCA initated. Explore new living situation options for Aaron 09/06 continue current tx plan 09/07 continue current tx plan; purposely trying to be gamey about suicidality 09/08/22- continue current plan of care- applications for longer term supported living in process. 09/09/22- continue current plan of care 09/10/22- Continue current plan of care-awaiting word from rest home applications. 09/11/22-Continue current plan. 09/12/22- Increase Cymbalta to 40 mg daily Discharge planning for 09/17/22. 09/13: Continue current regimen and plans. No changes were made today 09/14: Continue current regimen and plans. Two pain medications, methadone and oxycodone were renewed 09/15/22: Continue current plan of care. Discharge to rest home this week. 09/17/22: Discharge 09/18/22 I spent minutes with the patient and/or on the patient floor today, greater than?50% of which was spent counseling/coordinating care. Patient educated on: therapeutic strategies Informed Consent: understands Reason for contiued inpatient stay Substantial Risk for: harm to self and rapid decompensation
[2022-09-17 18:00] VITALS: BP 119/72; PULSE 98; RESP 18; TEMP 36.7; O2SAT 95
[2022-09-17] MEDS: hydrOXYzine HCL 25 MG TABLET PO (20:32)
[2022-09-18] MEDS: oxyCODONE HCl Immed Release 5 MG TABLET 10 MG PO (06:44)
[2022-09-18] MEDS: Thiamine HCL 100 MG TABLET PO (08:35)
[2022-09-18] MEDS: DULoxetine HCl 20 MG CAPSULE.DR 40 MG PO (08:35)
[2022-09-18] MEDS: Cholecalciferol (Vitamin D3) 25 MCG TABLET 50 MCG PO (08:35)
[2022-09-18] MEDS: cloNIDine HCL 0.2 MG TABLET PO (08:36)
[2022-09-18] MEDS: lisinopriL 5 MG TABLET PO (08:36)
[2022-09-18] MEDS: NIFEdipine ER 90 MG TAB.ER.24 PO (08:36)
[2022-09-18] MEDS: Multivitamin with Minerals Liq 15 ML LIQUID PO (08:58)
[2022-09-18] MEDS: methADONE HCl 5 MG TABLET PO (09:52)
--- NOTE | 2022-09-19 16:37 | PM.PSYDC ---
DS: Providers Provider Date of Service: 09/18/22 Date of admission: 09/03/22 23:11 Date of discharge: 09/18/22 Primary care physician: Travis cMarthur MD Admitting clinician: Irina Mckeon Attending physician on admission: Reinier Fairbanks Consults: 09/03/22 22:46 Consult to Hospitalist Routine Consulting Provider: Hospitalist Reason For Exam: Transfer from [facility] Attending physician on discharge: Reinier Fairbanks Discharging clinician: Irina Mckeon DS: Diagnosis Discharge Diagnosis (1) Chronic pain: Status: Acute (2) Depressive disorder: Status: Acute (3) Opioid abuse: Status: Acute DS: Medications Discharge Medications Home Medications: Home Medications Medication Instructions Recorded Confirmed Miralax 17 PO DAILY 09/04/22 Narcan 1 mg PO NEEDED PRN Opioid 09/04/22 09/04/22 Overdose lisinopril 20 mg tablet 5 mg PO DAILY 09/04/22 09/04/22 methadone 10 mg tablet 5 mg PO TID 09/04/22 09/04/22 naloxone 1 mg/mL injection syringe mg 09/04/22 nifedipine 60 mg tablet,extended 90 mg PO DAILY 09/04/22 09/04/22 release 24 hr oxycodone 5 mg tablet 10 mg PO BID 09/04/22 09/04/22 Previous Rx's Medication Instructions Recorded acetaminophen 325 mg tablet 650 mg PO Q6H PRN Pain #120 tabs 09/18/22 (Tylenol) cholecalciferol (vitamin D3) 25 50 mcg PO DAILY #30 tabs 09/18/22 mcg (1,000 unit) tablet clonidine HCl 0.2 mg tablet 0.2 mg PO TID #90 tabs 09/18/22 docusate sodium 100 mg capsule 100 mg PO TID #90 caps 09/18/22 (Colace) duloxetine 20 mg capsule,delayed 40 mg PO DAILY #30 caps 09/18/22 release duloxetine 20 mg capsule,delayed 40 mg PO DAILY #60 caps 09/18/22 release (Cymbalta) lisinopril 5 mg tablet 5 mg PO DAILY #30 tabs 09/18/22 methadone 5 mg tablet 5 mg PO Q8H PRN Pain, Moderate 09/18/22 (Pain Scale 4-6 #90 tabs mexiletine 150 mg capsule 150 mg PO QID #120 caps 09/18/22 multivitamin with minerals 1 cap PO DAILY #30 caps 09/18/22 naloxone 4 mg/actuation nasal 4 mg intranasal Q2M #4 ea 09/18/22 spray (Narcan) nifedipine 90 mg tablet,extended 90 mg PO DAILY #0 tabs 09/18/22 release 24 hr nifedipine 90 mg tablet,extended 90 mg PO DAILY #30 tabs 09/18/22 release 24 hr (Procardia XL) ondansetron 4 mg disintegrating 4 mg PO Q8H PRN Nausea And 09/18/22 tablet Vomiting #30 tabs oxycodone 5 mg tablet 10 mg PO BID PRN Pain, Moderate 09/18/22 (Pain Scale 4-6 #6 tabs polyethylene glycol 3350 17 gram 17 g PO DAILY PRN Constipation #1 09/18/22 oral powder packet units thiamine mononitrate (vit B1) 100 100 mg PO DAILY #30 tabs 09/18/22 mg tablet oxycodone 10 mg tablet 10 mg PO BID PRN pain (scale score 09/19/22 4-6) #60 tabs trazodone 50 mg tablet 50 mg PO BEDTIME PRN insomnia #30 09/19/22 tabs Mental Status Exam Mental Status Exam Patient Appearance: Fatigued and Appropriate Patient Orientation: Person, Place, Time and Situation Level of Consciousness: Alert Patient Behavior: Appropriate, Dependent, Talkative, Cooperative, Anxious, Fearful, Fatigued, Distractible and Good Eye Contact Mood Description: Depressed and Anxious Affect Description: Flat Patient Cognition Impaired: No Ability to Follow Directions: Good Speech Pattern: Spontaneous Speech Memory Description: Episodic Impaired Hallucinations: None Delusions: Not Present Thought Process: Rumination Thought Content: positive for Circumstantial, positive for Perseveration and positive for Suicidal Ideation (out of a structured care environment) Depressive Symptoms: Increased Anxiety, Feelings of Worthlessness, Hopelessness, Isolating-Friends/Family, Feelings of Guilt, Unhappiness, Thoughts of /Suicide (when out of a strucutured care environment) and Low Self Esteem Judgement: Fair DS: Summary Hospital Course Hospital Course: Admission to adult psychiatry for exacerbation of depression with SI, plan, intent along with chronic pain and medical dependence on opiates. Pt consistently reported that he felt he had nothing to live for as all of his family is , he is alone and has no supports. By history, he has done well in institutional settings. As a result, he was referred to a rest home for ongoing care, support and structure Time spent discussing smoking cessation with patient: 3 to 10 minutes Status at Discharge Functional status at discharge: independent ambulation Overall status at discharge: patient is back to baseline Time Spent with Patient Time attestation: Total time spent providing and/or coordinating discharge services: 40 Time spent: Greater than 30 minutes Discharge Plan Discharge Anticipated Discharge Date/Time: 09/18/22 12:40 Patient Disposition: Xfer [facility] Discharge Diagnosis: Recurrent Major Depression Chronic Musculoskeletal Pain Referrals: Travis Mcarthur MD [Primary Care Provider] - 1 Week Discharge Medications: New clonidine HCl 0.2 mg Tablet 0.2 mg PO TID Qty: 90 0RF Protocol: Hold for SBP< HOLD for SBP < : 90 lisinopril 5 mg Tablet 5 mg PO DAILY Qty: 30 0RF methadone 5 mg Tablet 5 mg PO Q8H PRN (Reason: Pain, Moderate (Pain Scale 4-6) Qty: 90 0RF cholecalciferol (vitamin D3) 25 mcg (1,000 unit) Tablet 50 mcg PO DAILY Qty: 30 0RF thiamine mononitrate (vit B1) 100 mg Tablet 100 mg PO DAILY Qty: 30 0RF nifedipine [Procardia XL] 90 mg tablet extended release 24hr 90 mg PO DAILY Qty: 30 0RF oxycodone 10 mg tablet 10 mg PO BID PRN (Reason: pain (scale score 4-6)) Qty: 60 0RF Rx Instructions: Partial Fill upon patient request. trazodone 50 mg tablet 50 mg PO BEDTIME PRN (Reason: insomnia) Qty: 30 0RF Continued acetaminophen [Tylenol] 325 mg Tablet 650 mg PO Q6H PRN (Reason: Pain) Qty: 120 0RF Discontinued mirtazapine 30 mg Tablet 30 mg PO BEDTIME 30 Days Qty: 30 0RF duloxetine 20 mg Capsule,Delayed Release(Dr/Ec) 20 mg PO DAILY 30 Days Qty: 30 0RF clonidine HCl 0.1 mg tablet 0.1 mg PO TID Protocol: Hold for SBP< HOLD for SBP < : 90 mexiletine 150 mg capsule 150 mg PO QID docusate sodium [Colace] 100 mg Capsule 100 mg PO TID oxycodone 20 Q8-10H Milk of Magnesia suspension See Rx Instructions .ROUTE .COMPLEX PRN (Reason: Constipation) Rx Instructions: 400mg/5ml at bedtime as needed ondansetron [Zofran ODT] 4 mg Tablet,Disintegrating 4 mg PO Q8H PRN (Reason: Nausea And Vomiting) Rx Instructions: 1-2 tabs by mouth every hours as needed No Action docusate sodium [Colace] 100 mg capsule 100 mg PO BID PRN (Reason: Constipation) duloxetine [Cymbalta] 20 mg capsule,delayed release(DR/EC) 40 mg PO DAILY multivitamin Tablet 1 tab PO DAILY hydroxyzine pamoate 25 mg Capsule 25 mg PO TID PRN (Reason: Anxiety) acetaminophen 500 mg capsule 500 mg PO Q6H PRN (Reason: fever or pain) Qty: 20 0RF cholecalciferol (vitamin D3) 50 mcg (2,000 unit) capsule 50 mcg PO DAILY Qty: 30 0RF clonidine HCl 0.2 mg tablet 0.2 mg PO TID Qty: 10 0RF lisinopril 5 mg tablet 5 mg PO DAILY Qty: 30 0RF nifedipine 90 mg tablet extended release 24hr 90 mg PO DAILY Qty: 30 0RF oxycodone 10 mg tablet 10 mg PO BID PRN (Reason: pain (scale score 7-10)) Qty: 9 0RF Rx Instructions: Partial Fill upon patient request. thiamine HCl (vitamin B1) 100 mg tablet 100 mg PO DAILY Qty: 30 0RF hydroxyzine HCl 25 mg tablet 25 mg PO QID PRN (Reason: anxiety) Qty: 9 0RF Discharge Orders: Discharge Order (Routine); Ordered 09/18/22 Ordered By: Irina Mckeon Diet: Advance to usual diet Activity on Discharge: As tolerated Stand Alone Forms: Patient Portal Discharge page, Community Support Care Plan Goals: Maintain mood and safe behaviors Take medications as directed Practice coping skills Connect with out patient providers Health Concerns: Stable mood and behaviors Plan of Treatment: Follow up with out patient providers Take medications as directed Assessment: non-psychotic non-manic non-homicidal non-suicidal Discharge Date/Time: 09/18/22 10:44
== END 2022-09-18 10:44 | DRG 885 ==
PROVIDERS: Admitting Provider Psychiatry & Neurology Psychiatry; PCP Internal Medicine; Visit Provider Clinical Nurse Specialist Psychiatric/Mental Health, Adult
DX: F33.9 Major depressive disorder, recurrent, unspecified (principal); R45.851 Suicidal ideations; F11.20 Opioid dependence, uncomplicated; I10 Essential (primary) hypertension; G89.29 Other chronic pain; Z95.0 Presence of cardiac pacemaker; Z98.1 Arthrodesis status; Z23 Encounter for immunization; Z96.642 Presence of left artificial hip joint; Z79.899 Other long term (current) drug therapy
CPT/HCPCS: 36415; 80061; 82607; 82746; 83036; 83735; 84439; 84443; 90686; 90792; 93005

== ENCOUNTER 2022-09-21 09:37 | Emergency (ER) | payer OTHER, SELFPAY ==
[2022-09-21 09:41] VITALS: BP 188/100; PULSE 94; O2SAT 99
--- NOTE | 2022-09-21 09:51 | ED.PSYCH ---
HPI - Psych General Chief Complaint: Psychiatric Symptoms <Simin Pate NP - Last Filed: 09/21/22 18:43> Stated Complaint: SI W/PLAN X'S 3 DAYS PER EMS <Simin Pate NP - Last Filed: 09/21/22 18:43> Time Seen by Provider: 09/21/22 09:44 <Simin Pate NP - Last Filed: 09/21/22 18:43> Source: patient and EMS <Simin Pate NP - Last Filed: 09/21/22 18:43> Mode of arrival: EMS <Simin Pate NP - Last Filed: 09/21/22 18:43> Limitations: no limitations <Simin Pate NP - Last Filed: 09/21/22 18:43> History of Present Illness HPI Narrative: This is a 67-year-old male with a history of hypertension, depression, chronic pain who presents with reports of ongoing pain. Per EMS patient was brought in for suicidal thoughts with plan to cut himself. Patient denies suicidal thoughts. Patient states if I wanted to kill myself I would be . Patient with history of multiple suicide attempts. Patient recently admitted to this facility and discharged on September 19 after being admitted with suicidal thoughts. Patient denies homicidal ideations, hallucinations. Patient reports chronic pain in his hips, back, neck and jaw. Patient reports he takes oxycodone 20 mg q.6 hours. Patient reports he is also on methadone. Patient reports he was discharged to an assisted living facility but he does not believe that they are giving him his narcotic pain medication. I did speak to nursing. Per EMS patient received his oxycodone prior to EMS arrival. <Simin Pate NP - Last Filed: 09/21/22 18:43> Related Data Home Medications: Home Medications Medication Instructions Recorded Confirmed Miralax 17 g PO DAILY 09/04/22 09/21/22 docusate sodium 100 mg capsule 100 mg PO BID PRN Constipation 09/21/22 09/21/22 (Colace) duloxetine 20 mg capsule,delayed 20 mg PO DAILY 09/21/22 09/21/22 release (Cymbalta) hydroxyzine pamoate 25 mg capsule 25 mg PO Q6H PRN insomnia 09/21/22 09/21/22 Previous Rx's Medication Instructions Recorded acetaminophen 325 mg tablet 650 mg PO Q6H PRN Pain #120 tabs 09/18/22 (Tylenol) cholecalciferol (vitamin D3) 25 50 mcg PO DAILY #30 tabs 09/18/22 mcg (1,000 unit) tablet clonidine HCl 0.2 mg tablet 0.2 mg PO TID #90 tabs 09/18/22 lisinopril 5 mg tablet 5 mg PO DAILY #30 tabs 09/18/22 methadone 5 mg tablet 5 mg PO Q8H PRN Pain, Moderate 09/18/22 (Pain Scale 4-6 #90 tabs multivitamin with minerals 1 cap PO DAILY #30 caps 09/18/22 nifedipine 90 mg tablet,extended 90 mg PO DAILY #30 tabs 09/18/22 release 24 hr (Procardia XL) thiamine mononitrate (vit B1) 100 100 mg PO DAILY #30 tabs 09/18/22 mg tablet oxycodone 10 mg tablet 10 mg PO BID PRN pain (scale score 09/19/22 4-6) #60 tabs trazodone 50 mg tablet 50 mg PO BEDTIME PRN insomnia #30 09/19/22 tabs <Simin Pate NP - Last Filed: 09/21/22 18:43> Allergies/Adverse Reactions: Allergies Allergy/AdvReac Type Severity Reaction Status Date / Time ergotamine [ERGOTAMINE] AdvReac Severe NAUSEA Verified 12/20/21 20:55 <Simin Pate NP - Last Filed: 09/21/22 18:43> Review of Systems Review of Systems: Yes all other systems are reviewed and are negative <Simin Pate NP - Last Filed: 09/21/22 18:43> Constitutional: Constitutional: Reports no additional constitutional complaints, Denies body ache(s), Denies chills, Denies fever(s), Denies headache(s) and Denies weakness <Simin Pate NP - Last Filed: 09/21/22 18:43> Eyes: Eyes: Reports no additional eye complaints and Denies change in vision <Simin Pate NP - Last Filed: 09/21/22 18:43> ENT: Reports system reviewed and no additional complaints, except as documented, Denies dizziness, Denies headache(s), Denies nasal congestion, Denies nasal discharge and Reports neck pain <Simin Pate NP - Last Filed: 09/21/22 18:43> Cardiovascular: Cardiovascular: Reports no additional cardiovascular complaints, Denies chest pain, Denies leg edema and Denies dyspnea <Simin Pate NP - Last Filed: 09/21/22 18:43> Respiratory: Respiratory: Reports no additional respiratory complaints, Denies cough and Denies dyspnea <Simin Pate NP - Last Filed: 09/21/22 18:43> Gastrointestinal: Gastrointestinal: Reports no additional gastrointestinal complaints, Denies abdominal pain, Denies diarrhea, Denies nausea and Denies vomiting <Simin Pate NP - Last Filed: 09/21/22 18:43> Genitourinary: Genitourinary: Denies urinary incontinence <Simin Pate NP - Last Filed: 09/21/22 18:43> Musculoskeletal: Musculoskeletal: Reports no additional musculoskeletal complaints, Reports back pain, Reports arthralgias, Denies joint swelling, Reports neck pain, Denies numbness and Denies tingling <Simin Pate NP - Last Filed: 09/21/22 18:43> Integumentary/Breasts: Skin/Breast: Reports system reviewed and no additional complaints, except as docu and Denies rash <Simin Pate NP - Last Filed: 09/21/22 18:43> Neurologic: Reports system reviewed and no additional complaints, except as documented, Denies Abnormal speech present, Denies dizziness, Denies headache(s), Denies numbness, Denies tingling and Denies weakness <Simin Pate NP - Last Filed: 09/21/22 18:43> Psychiatric: Psychiatric: Denies homicidal ideation and Reports suicidal ideation <Simin Pate NP - Last Filed: 09/21/22 18:43> PMFSH Past Medical History Attestation statement: The following information was validated with the patient. <Simin Pate NP - Last Filed: 09/21/22 18:43> Source: old records reviewed and nursing notes reviewed <Simin Pate NP - Last Filed: 09/21/22 18:43> Medical History: Medical History Cervical disc herniation HTN (hypertension) Lumbar disc herniation Opioid dependence Pacemaker Thoracic disc herniation <Simin Pate NP - Last Filed: 09/21/22 18:43> Surgical History: Surgical History History of hip replacement History of spinal fusion <Simin Pate NP - Last Filed: 09/21/22 18:43> Family History Family History: Family History Mother HTN (hypertension) CHF (congestive heart failure) <Simin Pate NP - Last Filed: 09/21/22 18:43> Social History Social History: Social History Household Members: Other Housing: House Do you presently have visiting nurse or other home services: Yes (Meals on Wheels) Patient Tobacco Use Status: Never used Tobacco Smoked in Last 30 Days: No Second Hand Smoke Exposure: No Use of substances other than those prescribed or required for medical reasons: No Substance Use Type: Crack/Cocaine, Heroin, Marijuana, Opiates, Prescription Drugs and Caffiene Advance Directives: No Advance Directives Information Provided: No Healthcare Proxy: No Guardian: No service: No Sexual orientation: Straight/Heterosexual <Simin Pate NP - Last Filed: 09/21/22 18:43> Physical Exam Vital Signs: Vital Signs: Last Vital Signs Temp 98.4 F 09/22/22 09:32 Pulse 76 09/22/22 09:32 Resp 16 09/22/22 09:32 BP 131/82 09/22/22 09:32 Pulse Ox 99 09/22/22 09:32 O2 Del Method 09/22/22 09:32 BMI result Body Mass Index 25.7 <Simin Pate NP - Last Filed: 09/21/22 18:43> Vital Signs: Last Vital Signs Temp 98.4 F 09/22/22 09:32 Pulse 76 09/22/22 09:32 Resp 16 09/22/22 09:32 BP 131/82 09/22/22 09:32 Pulse Ox 99 09/22/22 09:32 O2 Del Method 09/22/22 09:32 BMI result Body Mass Index 25.7 <Alexis Whaley MD - Last Filed: 09/22/22 11:57> Const: General: cooperative, healthy appearing, comfortable and no acute distress <Simin Pate NP - Last Filed: 09/21/22 18:43> Orientation/consciousness: patient oriented x3 <Simin Pate NP - Last Filed: 09/21/22 18:43> Limitations: no limitations <Simin Pate NP - Last Filed: 09/21/22 18:43> HEENT: Head: Yes normal to inspection <Simin Pate NP - Last Filed: 09/21/22 18:43> Ears: hearing grossly normal bilaterally <Simin Pate NP - Last Filed: 09/21/22 18:43> General nose exam: Normal external nose present <Simin Pate NP - Last Filed: 09/21/22 18:43> Face and sinus: Yes normal facial exam <Simin Pate NP - Last Filed: 09/21/22 18:43> Mouth: Normal oral and palatal mucosa present <iSmin Pate NP - Last Filed: 09/21/22 18:43> Throat: Yes posterior oropharynx normal <Simni Pate NP - Last Filed: 09/21/22 18:43> Eyes: General: appearance normal, both eyes and all related structures <Simin Pate NP - Last Filed: 09/21/22 18:43> Pupils: Equal, round and reactive pupils present <Simin Pate NP - Last Filed: 09/21/22 18:43> Neck: Neck: Yes normal visual inspection <Simin Pate NP - Last Filed: 09/21/22 18:43> Chest: Chest palpation & inspection: normal inspection of the chest <Simin Pate NP - Last Filed: 09/21/22 18:43> Resp: Effort & Inspection: normal respiratory effort <Simin Pate NP - Last Filed: 09/21/22 18:43> Auscultation: clear to auscultation bilaterally <Simin Pate AIRCRA[employer] SYSTEMS TECHNICIAN - Last Filed: 09/21/22 18:43> Cardio: Rate: regular rate <Simin Pate AIR[employer] SYSTEM[employer] TECHNICIAN - Last Filed: 09/21/22 18:43> Rhythm: regular rhythm <Simin Pate AIRCRA[employer] SYSTEMS TECHNICIAN - Last Filed: 09/21/22 18:43> Peripheral pulses: Peripheral pulses 2+ throughout <Simin Pate AIRCRA[employer] SYSTEMS TECHNICIAN - Last Filed: 09/21/22 18:43> GI: Inspection: Yes normal to inspection <Simin Pate NP - Last Filed: 09/21/22 18:43> Palpation (GI): Soft to palpation and nontender <Simin Pate AIRCRA[employer] SYSTEMS TECHNICIAN - Last Filed: 09/21/22 18:43> Auscultation: normal bowel sounds <Simin Pate NP - Last Filed: 09/21/22 18:43> Back/Spine/Pelvis: Thoracic/Lumbar Spine: thoracic and lumbar spine normal to inspection <Simin Pate NP - Last Filed: 09/21/22 18:43> Skin: General skin exam: no rashes or lesions noted <Simin Pate NP - Last Filed: 09/21/22 18:43> Neuro: General: patient oriented x3, no focal motor deficits and normal sensation to monofilament <Simin Pate AIRCRA[employer] SYSTEMS TECHNICIAN - Last Filed: 09/21/22 18:43> Cranial nerves: Yes CN's II-XII intact bilaterally and Yes Equal, round and reactive pupils present <Simin Pate NP - Last Filed: 09/21/22 18:43> Cognition (Neuro): normal cognition <Simin Pate NP - Last Filed: 09/21/22 18:43> Speech: No Abnormal speech present <Simin Pate NP - Last Filed: 09/21/22 18:43> Gait exam (Neuro): Normal gait present <Simin Pate NP - Last Filed: 09/21/22 18:43> Motor exam (neuro): 5/5 motor strength present throughout <Simin Pate NP - Last Filed: 09/21/22 18:43> Extrem: General: Yes normal to inspection, Yes no pedal edema and Yes no calf tenderness <Simin Pate NP - Last Filed: 09/21/22 18:43> Course Course Course Narrative: Seen by CARE team. Patient to be held in the ER and re-evaluated tomorrow. Medications reconciled. Placed in physician observation pending disposition. <Simin Pate NP - Last Filed: 09/21/22 18:43> Reevaluation(s) Reevaluation #1: Physician observation to continue, patient was seen by care team recommended to be evaluated by psychiatrist, awaiting for psych evaluation. <Alexis Whaley MD - Last Filed: 09/22/22 11:57> Time: 11:57 <Alexis Whaley MD - Last Filed: 09/22/22 11:57> Medications Administered Generic Name Dose Route Start Last Admin Trade Name Freq PRN Reason Stop Dose Admin Clonidine HCl 0.2 mg 09/21/22 15:00 09/22/22 08:28 Clonidine Hcl 0.2 Mg Tablet PO 0.2 mg TID [place] Administration Protocol Duloxetine HCl 20 mg 09/22/22 09:00 09/22/22 08:29 Duloxetine Hcl 20 Mg Capsule.Dr PO 20 mg DAILY [place] Administration Lisinopril 5 mg 09/22/22 09:00 09/22/22 08:28 Lisinopril 5 Mg Tablet PO 5 mg DAILY [place] Administration Protocol Methadone HCl 5 mg 09/21/22 14:31 09/22/22 09:25 Methadone Hcl 5 Mg Tablet PO 5 mg Q8H PRN Administration Pain, Moderate (Pain Scale 4-6 Multivitamins/Vitamin C 1 tab 09/22/22 09:00 09/22/22 08:28 Multivitamin Tablet PO 1 tab DAILY [place] Administration Nifedipine 90 mg 09/22/22 09:00 09/22/22 09:26 Nifedipine Er 90 Mg Tab.Er.24 PO 90 mg DAILY [place] Administration Protocol Oxycodone HCl 10 mg 09/21/22 14:31 09/22/22 05:58 Oxycodone Hcl Immed Release 5 Mg Tablet PO 10 mg BID PRN Administration pain (scale score 4-6) Polyethylene Glycol 17 gm 09/22/22 09:00 09/22/22 08:31 Polyethylene Glycol 3350 17 Gm Powd.Pack PO Not Given DAILY [place] Thiamine HCl 100 mg 09/22/22 09:00 09/22/22 08:31 Thiamine Hcl 100 Mg Tablet PO 100 mg DAILY [place] Administration Trazodone HCl 50 mg 09/21/22 14:31 09/22/22 01:25 Trazodone Hcl 50 Mg Tablet PO 50 mg BEDTIME PRN Administration insomnia Vitamin D 50 mcg 09/22/22 09:00 09/22/22 08:29 Cholecalciferol (Vitamin D3) 25 Mcg Tablet PO 50 mcg DAILY [place] Administration <Simin Pate NP - Last Filed: 09/21/22 18:43> Medications Administered Generic Name Dose Route Start Last Admin Trade Name Freq PRN Reason Stop Dose Admin Clonidine HCl 0.2 mg 09/21/22 15:00 09/22/22 08:28 Clonidine Hcl 0.2 Mg Tablet PO 0.2 mg TID [facility] Administration Protocol Duloxetine HCl 20 mg 09/22/22 09:00 09/22/22 08:29 Duloxetine Hcl 20 Mg Capsule.Dr PO 20 mg DAILY [place] Administration Lisinopril 5 mg 09/22/22 09:00 09/22/22 08:28 Lisinopril 5 Mg Tablet PO 5 mg DAILY [place] Administration Protocol Methadone HCl 5 mg 09/21/22 14:31 09/22/22 09:25 Methadone Hcl 5 Mg Tablet PO 5 mg Q8H PRN Administration Pain, Moderate (Pain Scale 4-6 Multivitamins/Vitamin C 1 tab 09/22/22 09:00 09/22/22 08:28 Multivitamin Tablet PO 1 tab DAILY [place] Administration Nifedipine 90 mg 09/22/22 09:00 09/22/22 09:26 Nifedipine Er 90 Mg Tab.Er.24 PO 90 mg DAILY [place] Administration Protocol Oxycodone HCl 10 mg 09/21/22 14:31 09/22/22 05:58 Oxycodone Hcl Immed Release 5 Mg Tablet PO 10 mg BID PRN Administration pain (scale score 4-6) Polyethylene Glycol 17 gm 09/22/22 09:00 09/22/22 08:31 Polyethylene Glycol 3350 17 Gm Powd.Pack PO Not Given DAILY [place] Thiamine HCl 100 mg 09/22/22 09:00 09/22/22 08:31 Thiamine Hcl 100 Mg Tablet PO 100 mg DAILY [place] Administration Trazodone HCl 50 mg 09/21/22 14:31 09/22/22 01:25 Trazodone Hcl 50 Mg Tablet PO 50 mg BEDTIME PRN Administration insomnia Vitamin D 50 mcg 09/22/22 09:00 09/22/22 08:29 Cholecalciferol (Vitamin D3) 25 Mcg Tablet PO 50 mcg DAILY [place] Administration <Alexis Whaley MD - Last Filed: 09/22/22 11:57> MDM - Psych MDM Narrative Medical decision making narrative: 67-year-old male with history of chronic pain, depression here with reports of continued chronic pain in his hips, back and neck and jaw. Initially there was concern for suicidal thoughts the patient denies this now. He was released in his facility 48 hours ago to an assisted living facility the patient is concerned he is not receiving his prescribed narcotic pain medication. Will involve care team to obtain collateral information Check drug screen, COVID screen No concern for acute ingestion or trauma Of note, patient a little forgetful. Patient feels like he was discharged from [facility] 2 days ago and for got he was at [facility]. When I reviewed the history and physical from psych on admission there is also note of some mild dementia versus delirium which has been ongoing. No new mental status changes <Simin Pate NP - Last Filed: 09/21/22 18:43> Medical Records Attestation: I reviewed the patient's medical records. <Simin Pate NP - Last Filed: 09/21/22 18:43> Lab Data Attestation: I reviewed the patient's lab results. <Simin Pate NP - Last Filed: 09/21/22 18:43> Labs: Lab Results 09/21/22 09/21/22 09/21/22 Range/Units 10:07 10:07 10:07 Urine Color Yellow Urine Appearance Clear Urine pH 6.5 (5.0-9.0) Ur Specific [place] <= 1.005 (1.005-1.025) Urine Protein Negative (Neg-Trace) mg/dL Urine Glucose (UA) Negative (Negative) mg/dL Urine Ketones Negative (Negative) mg/dL Urine Blood Negative (Negative) Urine Nitrite Negative (Negative) Ur Leukocyte Esterase Negative (Negative) Urine Opiates Screen Not Detected (Not Detect) Urine Fentanyl Screen Not Detected (Not Detect) Ur Barbiturates Screen Not Detected (Not Detect) Ur Phencyclidine Scrn Not Detected (Not Detect) Ur Amphetamines Screen Not Detected (Not Detect) U Benzodiazepines Scrn Not Detected (Not Detect) Urine Cocaine Screen Not Detected (Not Detect) U Marijuana (THC) Screen Not Detected (Not Detect) COVID-19 ([facility]) Negative (Negative) COVID-[place] [employer] See Note <Simin Pate NP - Last Filed: 09/21/22 18:43> Lab Results 09/21/22 09/21/22 09/21/22 Range/Units 10:07 10:07 10:07 Urine Color Yellow Urine Appearance Clear Urine pH 6.5 (5.0-9.0) Ur Specific [place] <= 1.005 (1.005-1.025) Urine Protein Negative (Neg-Trace) mg/dL Urine Glucose (UA) Negative (Negative) mg/dL Urine Ketones Negative (Negative) mg/dL Urine Blood Negative (Negative) Urine Nitrite Negative (Negative) Ur Leukocyte Esterase Negative (Negative) Urine Opiates Screen Not Detected (Not Detect) Urine Fentanyl Screen Not Detected (Not Detect) Ur Barbiturates Screen Not Detected (Not Detect) Ur Phencyclidine Scrn Not Detected (Not Detect) Ur Amphetamines Screen Not Detected (Not Detect) U Benzodiazepines Scrn Not Detected (Not Detect) Urine Cocaine Screen Not Detected (Not Detect) U Marijuana (THC) Screen Not Detected (Not Detect) COVID-19 ([facility]) Negative (Negative) [employer] See Note <Alexis Whaley MD - Last Filed: 09/22/22 11:57> Discharge Plan Discharge Clinical Impression: Chronic pain, Depressive disorder <Simin Pate NP - Last Filed: 09/21/22 18:43> Patient Disposition: Still a Patient <Simin Pate NP - Last Filed: 09/21/22 18:43> Prescriptions: No Action Miralax granules 17 g PO DAILY clonidine HCl 0.2 mg Tablet 0.2 mg PO TID Qty: 90 0RF Protocol: Hold for SBP< HOLD for SBP < : 90 lisinopril 5 mg Tablet 5 mg PO DAILY Qty: 30 0RF methadone 5 mg Tablet 5 mg PO Q8H PRN (Reason: Pain, Moderate (Pain Scale 4-6) Qty: 90 0RF cholecalciferol (vitamin D3) 25 mcg (1,000 unit) Tablet 50 mcg PO DAILY Qty: 30 0RF thiamine mononitrate (vit B1) 100 mg Tablet 100 mg PO DAILY Qty: 30 0RF acetaminophen [Tylenol] 325 mg Tablet 650 mg PO Q6H PRN (Reason: Pain) Qty: 120 0RF multivitamin with minerals Capsule 1 cap PO DAILY Qty: 30 0RF nifedipine [Procardia XL] 90 mg tablet extended release 24hr 90 mg PO DAILY Qty: 30 0RF oxycodone 10 mg tablet 10 mg PO BID PRN (Reason: pain (scale score 4-6)) Qty: 60 0RF Rx Instructions: Partial Fill upon patient request. trazodone 50 mg tablet 50 mg PO BEDTIME PRN (Reason: insomnia) Qty: 30 0RF docusate sodium [Colace] 100 mg capsule 100 mg PO BID PRN (Reason: Constipation) hydroxyzine pamoate 25 mg Capsule 25 mg PO Q6H PRN (Reason: insomnia) duloxetine [Cymbalta] 20 mg capsule,delayed release(DR/EC) 20 mg PO DAILY <Simin Pate NP - Last Filed: 09/21/22 18:43> Interventions: [place]-Suicide Risk Severity Scale Last Done: 09/22/22 07:42 <Simin Pate NP - Last Filed: 09/21/22 18:43>
[2022-09-21 10:16] VITALS: BP 145/98; PULSE 80; RESP 18; TEMP 36.6; O2SAT 97; BMI 25.7
[2022-09-21 10:16] LABS: Appearance Urine Clear; Color Urine Yellow; Glucose Urine UA Negative (Negative); Leukocyte Esterase Urine Negative (Negative); Nitrite Urine Negative (Negative); PH 6.5 (5.0-9.0); Specific Gravity - Urine <= 1.005 (1.005-1.025); Urine Blood Negative (Negative); Urine Ketones Negative (Negative); Urine Protein Negative (Neg-Trace)
[2022-09-21 10:32] LABS: Amphetamine Screen Urine Not Detected (Not Detect); Barbiturates, Urine Not Detected (Not Detect); Benzodiazepines Screen Urine Not Detected (Not Detect); Cannabinoid Screen Urine Not Detected (Not Detect); Cocaine Screen Urine Not Detected (Not Detect); Fentanyl, urine Not Detected (Not Detect); Opiate Screen Urine Not Detected (Not Detect); Phencyclidine Screen Urine Not Detected (Not Detect)
[2022-09-21 10:36] LABS: COVID-19 Test Negative (Negative); IDNOW Serial# 55D5AD1C
--- NOTE | 2022-09-21 13:23 | PHA.MEDREC ---
Pharmacy Consult ? Medication Reconciliation Pharmacy has completed the medication reconciliation. Reviewed med rec done by nursing. They confirmed to have list from assisted living facility.
[2022-09-21 15:55] VITALS: BP 146/97; PULSE 70; RESP 17; TEMP 36.5; O2SAT 96
[2022-09-21] MEDS: oxyCODONE HCl Immed Release 5 MG TABLET 10 MG PO (16:01)
[2022-09-21] MEDS: cloNIDine HCL 0.2 MG TABLET PO ×2 (16:01→20:56)
--- NOTE | 2022-09-21 17:17 | MHC.CARE ---
Patient to remain in the ED for the night, MSU and psychiatry consult in the AM. See, Patient Care for written assessment.
[2022-09-21 19:32] VITALS: BP 139/83; PULSE 81; RESP 16; TEMP 37.4; O2SAT 99
--- NOTE | 2022-09-21 19:34 | PC.NURSE ---
Pt is alert and oriented to self and place. Pt reports being and feeling alone I have nobody. Everyone is gone. Pt reports If I could, I would just end it. I have nothing to live for but I don't have a gun. Pt reports not going to harm self or others and reports I have no goals. There is no reason to continue. Verbal reassurance provided. Pt reports enjoying activities such as reading. Refuses a book at this time. Pt waiting for re-eval from the care team in the morning. Pt aware of plan of care. Breaths are even and unlabored. No apparent distress noted. Will continue to monitor pt. Pt laying and resting at the bedside.
[2022-09-21] MEDS: methADONE HCl 5 MG TABLET PO (20:56)
--- NOTE | 2022-09-21 23:50 | PC.NURSE ---
Pt sleeping in no apparent distress. Breaths are even and unlabored with equal chest rises. Will continue to monitor.
[2022-09-22] MEDS: traZODone HCL 50 MG TABLET PO (01:25)
[2022-09-22 01:55] VITALS: BP 138/79; PULSE 94; RESP 17; TEMP 37.3; O2SAT 99
--- NOTE | 2022-09-22 05:53 | PC.NURSE ---
Pt sleeping in no apparent distress. Breaths are even and unlabored. Will continue to monitor.
[2022-09-22] MEDS: oxyCODONE HCl Immed Release 5 MG TABLET 10 MG PO ×2 (05:58→18:08)
[2022-09-22] MEDS: Multivitamin TABLET 1 TAB PO (08:28)
[2022-09-22] MEDS: cloNIDine HCL 0.2 MG TABLET PO ×3 (08:28→20:24)
[2022-09-22] MEDS: lisinopriL 5 MG TABLET PO (08:28)
[2022-09-22] MEDS: Cholecalciferol (Vitamin D3) 25 MCG TABLET 50 MCG PO (08:29)
[2022-09-22] MEDS: DULoxetine HCl 20 MG CAPSULE.DR PO (08:29)
[2022-09-22] MEDS: Thiamine HCL 100 MG TABLET PO (08:31)
--- NOTE | 2022-09-22 08:55 | PC.NURSE ---
[facility] contacted for procardia dose. Awaiting
[2022-09-22] MEDS: methADONE HCl 5 MG TABLET PO (09:25)
[2022-09-22] MEDS: NIFEdipine ER 90 MG TAB.ER.24 PO (09:26)
[2022-09-22 09:32] VITALS: BP 131/82; PULSE 76; RESP 16; TEMP 36.9; O2SAT 99
[2022-09-22 14:00] VITALS: RESP 16
--- NOTE | 2022-09-22 16:24 | PM.PSYCN ---
History of Present Illness Date of Service: 09/23/2022 Chief Complaint: SI W/PLAN X'S 3 DAYS PER EMS Reason for Consult: SI Discussed with referring provider: Yes Sources of Information: patient interviewed, chart reviewed and crisis/core team assessment reviewed HPI Narrative: Mr. odom is a 67 year-old, hx of MDD, opioid use disorder in remission who is known to at [facility] through 2 inpatient admission this year. Mr. Odom was brought via EMS after staff at [facility] called 911 reporting pt making ongoing reports of wanting to with plan cut himself. Utox is neg, although he is on opioid pain meds including combination of methadone and oxy. Pt was recently discharged from after treatment of chronic SI to [facility]. In the ED, pt reports he has no plan or intent to harm himself. He reports he has chronic intermittent suicidal ideation. He reports he does not have much to live for- he had 2 wives, both now, no family. He talks about dear friend who has 6 children and a lot of money reporting that that's the kind of life he wished he had. He reports he hopes to have a . He reports he does not like the [facility] where he resides because it is far from everything. He also reports his few material belongings are still at previous [facility] including his TV and refrigerator. His affect throughout this interview is bright. He reports he has no idea as to who called 911 to be brought to the hospital. He does make provocative comments such as just get me a gun, but then retracts any plan or intent to harm himself. Past Psychiatric History: IP: This is the first- Hx of [facility] in pt. OP: No. None needed he reports Trials: Cymbalta Medical Evaluation Reviewed: Yes [facility] Medical History Cervical disc herniation HTN (hypertension) Lumbar disc herniation Opioid dependence Pacemaker Thoracic disc herniation Surgical History History of hip replacement History of spinal fusion Family History: Denies Social History: poor social support common disability for more than 20 years, denies having children or any contact with collateral family. Trauma History: Losses Diagnostics Vital Signs (24Hr): Vital Signs - 24 hr 09/22/22 14:00 09/23/22 04:15 09/23/22 09:28 Temperature 98.2 F 97.5 F Pulse Rate 68 75 Respiratory Rate 16 17 16 Blood Pressure 139/79 166/103 H Pulse Oximetry 99 97 Oxygen Delivery Method Room Air Room Air BMI result Body Mass Index 25.7 Mental Status Exam Mental Status Exam Narrative: Appearance: wearing hospital gown, in NAD Behavior: cooperative Speech: clear, normal rate/rhythm/volume, spontaneous TP: tangential at times but no loose associationns TC: no signs of psychosis, wanting to go back to previous TL Mood: okay Affect: brightens at times, smiles SI: chronic thoughts denies any plan or intent HI: none AV/VH: none Delusions: none Insight/judgment: poor x 2. Alert, oriented x 3. previous MOCA during last admission . Medications Medications Current Medications Clonidine HCl (Clonidine Hcl 0.2 Mg Tablet) 0.2 mg PO TID [facility]; Protocol Last Admin: 09/23/22 09:27 Dose: 0.2 mg Docusate Sodium (Docusate Sodium 100 Mg Capsule) 100 mg PO BID PRN PRN Reason: Constipation Duloxetine HCl (Duloxetine Hcl 20 Mg Capsule.Dr) 20 mg PO DAILY [facility] Last Admin: 09/23/22 09:26 Dose: 20 mg Hydroxyzine HCl (Hydroxyzine Hcl 25 Mg Tablet) 25 mg PO Q6H PRN PRN Reason: insomnia Last Admin: 09/23/22 01:44 Dose: 25 mg Lisinopril (Lisinopril 5 Mg Tablet) 5 mg PO DAILY [place]; Protocol Last Admin: 09/23/22 10:33 Dose: 5 mg Methadone HCl (Methadone Hcl 5 Mg Tablet) 5 mg PO Q8H PRN PRN Reason: Pain, Moderate (Pain Scale 4-6 Last Admin: 09/23/22 09:26 Dose: 5 mg Multivitamins/Vitamin C (Multivitamin Tablet) 1 tab PO DAILY [place] Last Admin: 09/23/22 09:27 Dose: 1 tab Nifedipine (Nifedipine Er 90 Mg Tab.Er.24) 90 mg PO DAILY [place]; Protocol Last Admin: 09/23/22 10:33 Dose: 90 mg Oxycodone HCl (Oxycodone Hcl Immed Release 5 Mg Tablet) 10 mg PO BID PRN PRN Reason: pain (scale score 4-6) Last Admin: 09/23/22 01:44 Dose: 10 mg Pharmacy Consult (Consult Rx Perform Med Rec) 1 each MISCELLANE ONCE PRN PRN Reason: Consult order Polyethylene Glycol (Polyethylene Glycol 3350 17 Gm Powd.Pack) 17 gm PO DAILY [facility] Last Admin: 09/23/22 09:34 Dose: Not Given Thiamine HCl (Thiamine Hcl 100 Mg Tablet) 100 mg PO DAILY [facility] Last Admin: 09/23/22 09:26 Dose: 100 mg Trazodone HCl (Trazodone Hcl 50 Mg Tablet) 50 mg PO BEDTIME PRN PRN Reason: insomnia Last Admin: 09/23/22 01:44 Dose: 50 mg Vitamin D (Cholecalciferol (Vitamin D3) 25 Mcg Tablet) 50 mcg PO DAILY [facility] Last Admin: 09/23/22 09:26 Dose: 50 mcg Allergies Allergies Allergy/AdvReac Type Severity Reaction Status Date / Time ergotamine [ERGOTAMINE] AdvReac Severe NAUSEA Verified 12/20/21 20:55 Assessment & Plan Assessment & Plan (1) MDD (major depressive disorder), recurrent episode, moderate: Status: Acute Code(s): F33.1 - Major depressive disorder, recurrent, moderate (2) Personality disorder in adult: Status: Acute Code(s): F60.9 - Personality disorder, unspecified Plan Mr. Odom is a 67 year-old male with hx of opioid use in remission, chronic SI who was brought in via EMS after staff at [facility] called 911 as pt continuously reported suicidal ideation. In the ED- pt adamantly denies making these comments. He also denies any plan to hurt himself or others. He does admit that chronic SI is baseline for him. He is future oriented, in that he is upset that new [facility] is too far from stores he likes and wants help going back to previous [facility]. PLAN- no need for inpatient psych level of care- at baseline pt presents with chronic SI, which appears more to be provocative comments with incongruent affect (as it is much brighter than his reported mood). He adamantly denies any plan or intent to harm himself. Moreover, pt presents as future oriented despite his claim of suicidal ideation in that he is looking forward to return to prior [facility], which it is unclear he can return there. I spent minutes with the patient and/or on the patient floor today, greater than?50% of which was spent counseling/coordinating care.
--- NOTE | 2022-09-22 19:10 | PC.NURSE ---
Addendum entered by Laura Coleman RN 09/23/22 06:46: report given to ANN Saavedra Original Note: report received from ANN Lund pt currently eating dinner no signs of acute distress notice breathing equally unlabored close monitoring maintained
--- NOTE | 2022-09-22 21:10 | MHC.CARE ---
LATE ENTRY: Psych consult completed by Ginger Hoffman NP this afternoon. No further psychiatric assessment or stabilization needed at this time, recommendation is case management for placement. ED provider updated.
--- NOTE | 2022-09-22 22:23 | MHC.CM.ED ---
Addendum entered by Kell Alegria 09/22/22 22:41: According to medical record, there is some question of dementia ? chronic opiates. Pt has only been at [facility] for 48 hours. He was at home prior to last admission at [facility]. Waiting for psych consultation notes. CM will follow for discharge planning if appropriate. Original Note: Received CM consult from William GILBERT. Per [facility], the patient was psychiatrically cleared by Ginger Baker NP. There is not a note or evaluation in the chart. Yaa did not see this patient. CARE team note states [facility] Florence JUAREZ Administrative Technician questions if pt is a good fit for their facility and questions if a fci would be better. Pt has casey saw operator Leatha Santa at [facility]. CM did not meet with patient, as psych evaluation is not available for CM and unable to verify living situation at [facility]. This hand sign writer needs more information to assess discharge planning. CM does not provide discharge planning for psychiatric group homes. Unsure why patient cannot go home. Pt also has hx of substance abuse. Will address in the morning when involved parties can be called. William GILBERT aware. Is requesting information from psych.
[2022-09-23] MEDS: oxyCODONE HCl Immed Release 5 MG TABLET 10 MG PO ×2 (01:44→15:36)
[2022-09-23] MEDS: traZODone HCL 50 MG TABLET PO (01:44)
[2022-09-23] MEDS: hydrOXYzine HCL 25 MG TABLET PO (01:44)
[2022-09-23 04:15] VITALS: BP 139/79; PULSE 68; RESP 17; TEMP 36.8; O2SAT 99
--- NOTE | 2022-09-23 07:01 | PC.NURSE ---
patient appears to remain asleep at present respirations are even and unlabored patient appears in no distress
[2022-09-23] MEDS: Thiamine HCL 100 MG TABLET PO (09:26)
[2022-09-23] MEDS: methADONE HCl 5 MG TABLET PO ×2 (09:26→17:44)
[2022-09-23] MEDS: DULoxetine HCl 20 MG CAPSULE.DR PO (09:26)
[2022-09-23] MEDS: Cholecalciferol (Vitamin D3) 25 MCG TABLET 50 MCG PO (09:26)
[2022-09-23] MEDS: cloNIDine HCL 0.2 MG TABLET PO ×2 (09:27→15:36)
[2022-09-23] MEDS: Multivitamin TABLET 1 TAB PO (09:27)
[2022-09-23 09:28] VITALS: BP 166/103; PULSE 75; RESP 16; TEMP 36.4; O2SAT 97
[2022-09-23] MEDS: NIFEdipine ER 90 MG TAB.ER.24 PO (10:33)
[2022-09-23] MEDS: lisinopriL 5 MG TABLET PO (10:33)
--- NOTE | 2022-09-23 13:33 | MHC.CARE ---
CARE Team spoke with patient this morning in BH3, he was pleasant and engaged easily. Denied having any memory of going to [facility] and when told that he was so agitated and making suicidal statements he appeared surprised and said he would not want to upset other people and said he is not suicidal. Patient in agreement to return to Assisted Living, said he wants to be with people and also have the help he needs, in addition stated that he would try therapy. Call to Florence, director of [facility] who said that she would allow patient to come back and try again. Requested that Trazadone be added to medication list as it was not on his list at discharge and that would be helpful as a PRN and for sleep. Florence asked that patient's pain medication be scheduled at 12 hrs because it was written PRN and they could not deny his request when asked for medication before 12 hrs then has to go longer for the next dose of the day increasing patient's distress. Patient's belongings are in previous residence and that would be comforting to patient to have his things at [facility]. Call to Mavis Santa ) [facility] co-response clinician who has been working with patient. She stated that the [facility] rooming house was supposed to move the items within a week or two. Franky, director ([phone]) and Tamiko ([phone]) on site property manager. 1330 LM for Irais Gutierres, ACCS [phone]
--- NOTE | 2022-09-23 14:46 | MHC.CARE ---
Laura ready to accept patient this afternoon, CM set up transporation for ~3pm
== END 2022-09-23 18:25 | disposition skilled nursing facility (03) ==
PROVIDERS: Nurse Practitioner Family; Emergency Provider Emergency Medicine Emergency Medical Services; PCP Internal Medicine
DX: F33.1 Major depressive disorder, recurrent, moderate (principal); R45.851 Suicidal ideations; G89.29 Other chronic pain; Z20.822 Contact with and (suspected) exposure to COVID-19; Z79.899 Other long term (current) drug therapy
CPT/HCPCS: 80307; 81003; 87635; 99285

== ENCOUNTER 2022-09-28 20:52 | Emergency (ER) | payer OTHER, SELFPAY ==
--- NOTE | 2022-09-28 21:04 | ED_ITS ---
HPI - Psych General Chief Complaint: Psychiatric Symptoms Stated Complaint: crisis Time Seen by Provider: 09/28/22 21:04 Source: patient Mode of arrival: ambulatory Limitations: no limitations History of Present Illness HPI Narrative: 67-year-old male presents via EMS from assisted living facility for suicidal ideation with plan. Patient states that he does not have any family, that he has been twice, and that if he had a gun that he would kill himself. He states that he has no reason to live. MD complaint: suicidal ideation, feels depressed and anxiety Onset (ago): week(s) Duration: constant History of same: Yes Relieving factors: none Context: significant life stressor Associated psychiatric symptoms: depression and suicidal ideation Associated symptoms: denies other symptoms Treatments prior to arrival: none If self harm: admits thoughts of self harm and has plan Related Data Home Medications Medication Instructions Recorded Confirmed Miralax 17 g PO DAILY 09/04/22 09/21/22 docusate sodium 100 mg capsule 100 mg PO BID PRN Constipation 09/21/22 09/21/22 (Colace) duloxetine 20 mg capsule,delayed 20 mg PO DAILY 09/21/22 09/21/22 release (Cymbalta) hydroxyzine pamoate 25 mg capsule 25 mg PO Q6H PRN insomnia 09/21/22 09/21/22 Previous Rx's Medication Instructions Recorded acetaminophen 325 mg tablet 650 mg PO Q6H PRN Pain #120 tabs 09/18/22 (Tylenol) cholecalciferol (vitamin D3) 25 50 mcg PO DAILY #30 tabs 09/18/22 mcg (1,000 unit) tablet clonidine HCl 0.2 mg tablet 0.2 mg PO TID #90 tabs 09/18/22 lisinopril 5 mg tablet 5 mg PO DAILY #30 tabs 09/18/22 methadone 5 mg tablet 5 mg PO Q8H PRN Pain, Moderate 09/18/22 (Pain Scale 4-6 #90 tabs multivitamin with minerals 1 cap PO DAILY #30 caps 09/18/22 nifedipine 90 mg tablet,extended 90 mg PO DAILY #30 tabs 09/18/22 release 24 hr (Procardia XL) thiamine mononitrate (vit B1) 100 100 mg PO DAILY #30 tabs 09/18/22 mg tablet oxycodone 10 mg tablet 10 mg PO BID PRN pain (scale score 11/18/22 4-6) #60 tabs trazodone 50 mg tablet 50 mg PO BEDTIME PRN insomnia #30 09/19/22 tabs Allergies Allergy/AdvReac Type Severity Reaction Status Date / Time ergotamine [ERGOTAMINE] AdvReac Severe NAUSEA Verified 12/20/21 20:55 Review of Systems Review of Systems: Constitutional: No Fever, No Chills ENT/Mouth: No Ear Pain, No Nasal Congestion, No sore throat Eyes: No Eye Pain, No Swelling, No Redness Cardiovascular: No Chest Pain, No SOB Respiratory: No Cough, No Sputum, No Dyspnea Gastrointestinal: No Nausea, No Vomiting, No Diarrhea, No Hematochezia, No Melena Genitourinary: No Dysuria, No Urinary Frequency, No Hematuria Musculoskeletal: No Myalgias Skin: No Skin Lesions, No rash Neuro: No Weakness, No Numbness, No Paresthesias, No Dizziness, No Headache Psych: positive Anxiety, positive Depression, positive SI Heme/Lymph: No Lymphadenopathy Endocrine: No Polyuria, No Polydipsia Yes all other systems are reviewed and are negative [facility] Past Medical History Attestation statement: The following information was validated with the patient. Source: old records reviewed Medical History Cervical disc herniation HTN (hypertension) Lumbar disc herniation Opioid dependence Pacemaker Thoracic disc herniation Surgical History History of hip replacement History of spinal fusion Family History Family History Mother HTN (hypertension) CHF (congestive heart failure) Social History Social History Household Members: Other Housing: House Do you presently have visiting nurse or other home services: Yes (Meals on Wheels) Patient Tobacco Use Status: Never used Tobacco Second Hand Smoke Exposure: No Substance Use Type: Crack/Cocaine, Heroin, Marijuana, Opiates, Prescription Drugs and Caffiene Advance Directives: No Advance Directives Information Provided: No service: No Sexual orientation: Straight/Heterosexual Physical Exam Vital Signs: Vital Signs: Last Vital Signs Temp 98.4 F 09/28/22 23:38 Pulse 64 09/28/22 23:38 Resp 16 09/28/22 23:38 BP 126/78 09/28/22 23:38 Pulse Ox 98 09/28/22 23:38 O2 Del Method 09/28/22 23:38 BMI result Body Mass Index 27.1 Appearance: Alert. Oriented X3. Moderate emotional distress. Eyes: Pupils equal, round and reactive to light. ENT: Pharynx normal. Neck: Normal inspection. Neck supple. CVS: Normal heart rate and rhythm. Pulses normal. Respiratory: No respiratory distress. Breath sounds normal. Abdomen: Soft and nontender. Skin: Skin warm and dry. Normal skin color. Normal skin turgor. Extremities: No lower extremity edema. Gait well-balanced will coordinated. Neuro: No motor deficit. No sensory deficit. Cranial nerves 2-12 intact. Course Course Course Narrative: 67-year-old male presents via EMS for suicidal ideation, with statement he has no reason live and suicidal with a plan and that he would shoot himself if they were firearm available. Currently this patient does not have any access to firearms, review of records indicates multiple admissions in the past for similar circumstances. Patient has been twice states that he is lonely, and has no reason to live. Will order labs, and care team consult. 21:37 care team consult completed. Care team stated that patient stated that he was in pain, and denied suicidal ideation. I did discuss my concerns with care team, plan is to re-evaluate in the morning. Physician observation at this time. MDM - Psych Differential Diagnosis Differential diagnosis: Likely acute psychosis, suicidal ideation, depression, post-traumatic stress disorder and mood disorder Medical Records Attestation: I reviewed the patient's medical records. Lab Data Attestation: I reviewed the patient's lab results. Result diagrams: 09/28/22 21:42 09/28/22 21:42 Labs: Lab Results 09/28/22 09/28/22 09/28/22 Range/Units 21:42 21:42 21:42 WBC 7.3 (4.8-10.8) X10*3/uL RBC 4.70 (4.60-5.80) X10*6/uL Hgb 13.8 L (14.0-18.0) g/dl Hct 41.3 L (42.0-52.0) % MCV 87.9 (80.0-98.0) fL MCH 29.4 (27.0-33.0) pg MCHC 33.4 (31.0-36.0) g/dl RDW 12.0 (11.0-16.0) % Plt Count 157 L (160-400) X10*3/uL MPV 10.6 (9.4-12.4) fL Immature Gran % (Auto) 0.1 (0.0-0.4) % Neut % (Auto) 47.4 (45-73) % Lymph % (Auto) 39.2 (20-40) % Forrest % (Auto) 9.1 (2-11) % Eos % (Auto) 3.9 (0-4) % Baso % (Auto) 0.3 (0-2) % Lymph # (Auto) 2.9 (1.2-4.9) X10*3/uL Forrest # (Auto) 0.7 (0.1-1.2) X10*3/uL Eos # (Auto) 0.3 (0.0-0.4) X10*3/uL Baso # (Auto) 0.0 (0.0-0.2) X10*3/uL Abs Immat Gran (auto) 0.01 (0.00-0.03) X10*3/uL Absolute Neuts (auto) 3.5 (2.0-8.3) x10*3/uL Absolute Nucleated RBC 0.000 (0.0-0.012) X10*3/uL Nucleated RBC % (auto) 0.0 (0.0-0.2) /100WBC Sodium 140 (135-145) mmol/L Potassium 4.7 (3.3-5.1) mmol/L Chloride 104 (96-108) mmol/L Carbon Dioxide 27 (22-29) mmol/L Anion Gap 14 (12-20) BUN 16 (9-16) mg/dL Creatinine 0.83 (0.5-1.4) mg/dL Estim Creat Clear Calc 93.4 Estimated GFR > 60 Random Glucose 96 (60-115) mg/dL Calcium 9.7 (8.4-10.2) mg/dL Total Bilirubin 0.3 (0.0-1.0) mg/dL Direct Bilirubin < 0.2 (0.0-0.5) mg/dL AST 24 (5-37) U/L ALT 19 (0-40) U/L Alkaline Phosphatase 86 (39-117) U/L Total Protein 7.7 (6.5-8.0) g/dL Albumin 4.4 (3.5-5.0) g/dL Lipase 84 H (8-78) U/L Ethyl Alcohol mg/dL Influenza Type A (PCR) NEGATIVE (Negative) Influenza Type B (PCR) NEGATIVE (Negative) RSV RNA Qual (PCR) NEGATIVE (Negative) SARS-CoV-2 RNA (RT-PCR) NEGATIVE (Negative) 09/28/22 Range/Units 21:42 WBC (4.8-10.8) X10*3/uL RBC (4.60-5.80) X10*6/uL Hgb (14.0-18.0) g/dl Hct (42.0-52.0) % MCV (80.0-98.0) fL MCH (27.0-33.0) pg MCHC (31.0-36.0) g/dl RDW (11.0-16.0) % Plt Count (160-400) X10*3/uL MPV (9.4-12.4) fL Immature Gran % (Auto) (0.0-0.4) % Neut % (Auto) (45-73) % Lymph % (Auto) (20-40) % Forrest % (Auto) (2-11) % Eos % (Auto) (0-4) % Baso % (Auto) (0-2) % Lymph # (Auto) (1.2-4.9) X10*3/uL Forrest # (Auto) (0.1-1.2) X10*3/uL Eos # (Auto) (0.0-0.4) X10*3/uL Baso # (Auto) (0.0-0.2) X10*3/uL Abs Immat Gran (auto) (0.00-0.03) X10*3/uL Absolute Neuts (auto) (2.0-8.3) x10*3/uL Absolute Nucleated RBC (0.0-0.012) X10*3/uL Nucleated RBC % (auto) (0.0-0.2) /100WBC Sodium (135-145) mmol/L Potassium (3.3-5.1) mmol/L Chloride (96-108) mmol/L Carbon Dioxide (22-29) mmol/L Anion Gap (12-20) BUN (9-16) mg/dL Creatinine (0.5-1.4) mg/dL Estim Creat Clear Calc Estimated GFR Random Glucose (60-115) mg/dL Calcium (8.4-10.2) mg/dL Total Bilirubin (0.0-1.0) mg/dL Direct Bilirubin (0.0-0.5) mg/dL AST (5-37) U/L ALT (0-40) U/L Alkaline Phosphatase (39-117) U/L Total Protein (6.5-8.0) g/dL Albumin (3.5-5.0) g/dL Lipase (8-78) U/L Ethyl Alcohol < 10 mg/dL Influenza Type A (PCR) (Negative) Influenza Type B (PCR) (Negative) RSV RNA Qual (PCR) (Negative) SARS-CoV-2 RNA (RT-PCR) (Negative) Discharge Plan Discharge Clinical Impression: Chronic pain, MDD (major depressive disorder), recurrent episode, moderate, Depressive disorder Patient Disposition: Still a Patient Prescriptions: No Action Miralax granules 17 g PO DAILY clonidine HCl 0.2 mg Tablet 0.2 mg PO TID Qty: 90 0RF Protocol: Hold for SBP< HOLD for SBP < : 90 lisinopril 5 mg Tablet 5 mg PO DAILY Qty: 30 0RF methadone 5 mg Tablet 5 mg PO Q8H PRN (Reason: Pain, Moderate (Pain Scale 4-6) Qty: 90 0RF cholecalciferol (vitamin D3) 25 mcg (1,000 unit) Tablet 50 mcg PO DAILY Qty: 30 0RF thiamine mononitrate (vit B1) 100 mg Tablet 100 mg PO DAILY Qty: 30 0RF acetaminophen [Tylenol] 325 mg Tablet 650 mg PO Q6H PRN (Reason: Pain) Qty: 120 0RF multivitamin with minerals Capsule 1 cap PO DAILY Qty: 30 0RF nifedipine [Procardia XL] 90 mg tablet extended release 24hr 90 mg PO DAILY Qty: 30 0RF oxycodone 10 mg tablet 10 mg PO BID PRN (Reason: pain (scale score 4-6)) Qty: 60 0RF Rx Instructions: Partial Fill upon patient request. trazodone 50 mg tablet 50 mg PO BEDTIME PRN (Reason: insomnia) Qty: 30 0RF docusate sodium [Colace] 100 mg capsule 100 mg PO BID PRN (Reason: Constipation) hydroxyzine pamoate 25 mg Capsule 25 mg PO Q6H PRN (Reason: insomnia) duloxetine [Cymbalta] 20 mg capsule,delayed release(DR/EC) 20 mg PO DAILY
[2022-09-28 21:27] VITALS: BP 123/76; BP 160/110; PULSE 62; PULSE 86; RESP 16; TEMP 36.7; O2SAT 98; BMI 27.1
--- NOTE | 2022-09-28 21:42 | MHC.CARE ---
Care Team met with pt at ED22H for a risk assessment after pt presenting to [facility] via EMS for an evaluation due to SI with a plan. Pt appeared to be alert and oriented. Pt was pleasant and in good sprits as he was making jokes of loving women. Pt stated he does not have anyone to live for as he is a twice, has no family, no children, no friends, and is disabled for the past 20 years. Pt stated he feels pain and wants to due to the pain. Pt requested stronger medication to take the pain away. Pt reported he recently moved approximately 5 days ago to [facility] and they treat him well. Pt mentioned he is sleeping and eating well. Pt stated he is endorsing vague SI and denied HI/AVH. Disposition discussed with Domi GILBERT. Pt will remain in the ED to be reassessed in the morning.
[2022-09-28 21:48] LABS: MANUAL DIFF FLAG NO
[2022-09-28 21:49] LABS: Basophils Percent Auto 0.3 % (0-2); Eosinophils Absolute Auto 0.3 X10*3/uL (0.0-0.4); Eosinophils Percent Auto 3.9 % (0-4); Hematocrit 41.3 % (42.0-52.0); Hemoglobin 13.8 g/dl (14.0-18.0); Imm Gran Abs Auto 0.01 X10*3/uL (0.00-0.03); Imm Gran Pct Auto 0.1 % (0.0-0.4); Lymphocytes Absolute Auto 2.9 X10*3/uL (1.2-4.9); Lymphocytes Percent Auto 39.2 % (20-40); Mean Corpuscular HGB Conc 33.4 g/dl (31.0-36.0); Mean Corpuscular Hemoglobin 29.4 pg (27.0-33.0); Mean Corpuscular Volume 87.9 fL (80.0-98.0); Mean Platelet Volume 10.6 fL (9.4-12.4); Monocytes Absolute Auto 0.7 X10*3/uL (0.1-1.2); Monocytes Percent Auto 9.1 % (2-11); Neutrophils Absolute Auto 3.5 x10*3/uL (2.0-8.3); Neutrophils Percent Auto 47.4 % (45-73); Platelet Count 157 X10*3/uL (160-400); White Blood Count 7.3 X10*3/uL (4.8-10.8)
[2022-09-28 22:01] LABS: Ethanol < 10 mg/dL
[2022-09-28 22:03] LABS: Alanine Aminotransferase 19 U/L (0-40); Albumin Level 4.4 g/dL (3.5-5.0); Alkaline Phosphatase 86 U/L (39-117); Anion Gap 14 (12-20); Aspartate Amino Transferase 24 U/L (5-37); Bilirubin Direct < 0.2 mg/dL (0.0-0.5); Bilirubin Total 0.3 mg/dL (0.0-1.0); Blood Urea Nitrogen 16 mg/dL (9-16); Calcium 9.7 mg/dL (8.4-10.2); Carbon Dioxide 27 mmol/L (22-29); Chloride 104 mmol/L (96-108); Creatinine Clr Calc Pharmacy 93.4; Estimated Glomerular Filt Rate > 60; Glucose Random 96 mg/dL (60-115); Lipase 84 U/L (8-78); Potassium 4.7 mmol/L (3.3-5.1); Sodium 140 mmol/L (135-145); Total Protein 7.7 g/dL (6.5-8.0)
[2022-09-28 22:27] LABS: Influenza A PCR NEGATIVE (Negative); Influenza B PCR NEGATIVE (Negative); Resp Syncy Virus RNA Qual PCR NEGATIVE (Negative); SARS COV2 PCR INHOUSE NEGATIVE (Negative)
[2022-09-28 23:38] VITALS: BP 126/78; PULSE 64; RESP 16; TEMP 36.9; O2SAT 98
[2022-09-29 02:36] VITALS: RESP 16
[2022-09-29 05:10] VITALS: BP 124/76; PULSE 66; RESP 16; O2SAT 98
[2022-09-29] MEDS: oxyCODONE HCl Immed Release 5 MG TABLET 10 MG PO (05:44)
--- NOTE | 2022-09-29 06:53 | PC.NURSE ---
I assumed nursing care of Aaron upon his arrival to 22H from EMS stretcher. Aaron arrived from a local rest home ( [facility] ) for evaluation of suicidal ideations with a plan. Aaron insists, on his arrival, that he wants to and there's nothing anything or anyone can do or say that will change my mind. Not God. Not nobody. Aaron states he would blow his head off if he had a gun, which he does not currently possess. Aaron makes eye contact with Rn, he is calm and cooperative, exhibits a full range of emotions. He has no complaints of chest pain or SOB, nausea or vomiting. He remains in hallway stretcher 22 on a 1:1 directly in front of my station. He has ambulated to and from the bathroom independently and with steady gait, while remaining under constant observation. he has been taking PO food and fluids without difficulty. Aaron was evaluated by [facility] chimney mechanic/CARE team immediately following his arrival. Their note indicated that they prefer to reassess Aaron in the morning: Aaron is aware of this.
--- NOTE | 2022-09-29 12:00 | MHC.CARE ---
CARE Team met with Pt for re-assessment. Pt is a 67 year old single male who presented from [facility] for suicidality.? Pt has a historical diagnosis of Major depressive disorder, recurrent, moderate,? Personality disorder, unspecified and opioid use disorder in remission.? Pt was recently at [facility] under similar circumstances on 09/21-09/23. Pt stated his mood is ?terrible? with a bright affect? though is future orientated in conversation.? Pt continues to make provocative statements to nursing staff regarding suicidality. No behavioral concerns have been noted. Pt has been medication compliant.? Pt does not meet criteria for IPLOC admission. Pt presents with chronic sucidaility as evidenced by Pts report and prior documentation from psychiatric providers and medical record.? CARE Team consulted Ginger Hoffman NP who is in agreement with plan of care as Pt is presenting at his baseline level functioning. Plan for case management to be consulted for return to residences.
--- NOTE | 2022-09-29 12:27 | PC.NURSE ---
assumed care of pt at 1130, per 1:1 pt continues to make SI statements and discuss plan for suicide attempt post discharge.
--- NOTE | 2022-09-29 12:38 | MHC.CM.ED ---
Addendum entered by Sandrine Riley 09/29/22 14:16: Received telephone call from Pau of [facility]. She can be reached via telephone at [phone]. After speaking with the patient and her communication manager, [facility] feels patient would benefit from inpatient psych admission. toñito Currydevelopmental psychologist in ER. Met with patient. Does not feel patient is inpatient psych appropriate and that patient should return to [facility]. Original Note: Received case management consult from Madison GILBERT. Patient came to the ER from [facility] d/t crisis. Patient has been cleared by Care Team. Referral to case management in order to arrange for patient to return to his assisted living facility. T/W spoke with Florence at [facility]. Florence very upset that patient has been discharged from [facility] twice inappropriately . Per Florence, when patient was discharged from inpatient psych, the PCP listed for patient does not accept patient's insurance. Per Florence, no psych follow up was arranged. T/W attempting to reach toñito Currydevelopmental psychologist to verify this. Florence also upset that no discharge paperwork accompanied patient from the ER d/c on 09/23. This clinical information was sent via fax to [phone]. Florence also upset that prescriptions for hydrazaline and trazadcone were not sent to [facility]. Also, patient is due for medication refills. However patient isn't active with a PCP to refill those prescriptions. Per Chang JUAREZ, patient is actively verbalizes SI. Chang will contact Care Team. Unsure of appropriate d/c plan at this time. Continue to monitor for d/c needs.
--- NOTE | 2022-09-29 13:00 | PC.NURSE ---
CARE team contacted regarding pt's continued SI statements, and plan for discharge.
[2022-09-29] MEDS: Acetaminophen 325 MG TABLET 650 MG PO (13:26)
--- NOTE | 2022-09-29 14:29 | PHA.MEDREC ---
Pharmacy Consult ? Medication Reconciliation Pharmacy has completed the medication reconciliation. Spoke to [facility]. They do not have mexelitine listed. Also, facility is giving it 20 mg qd of cymbalta. Esvin
--- NOTE | 2022-09-29 15:16 | PC.NURSE ---
Pt seen this date for individual OT tx. Upon approach pt endorses SI, cheerfully stating I'm tiered I'm ready to . Pts statements validated however pt presents with bizarre cheerful flippant affect.
--- NOTE | 2022-09-29 15:47 | MHC.CARE ---
CARE Team is contacted by provider VLADIMIR Mendez that [facility] is not taking Pt back due to concerns related Pts current presentation. CARE Team reviews information with Mine Car Dispatcher VALENTINA Skelton. Plan continues for discharge back to [facility]. Pt does not meet criteria for inpatient level of care admission though Pt makes provocative statements; there is no identified goal for an acute psychiatric admission. An additional care team consult would not change Pts disposition. Per VLADIMIR Mendez the plan will be for case management to continue to work with [facility] for discharge planning.
[2022-09-29] MEDS: Thiamine HCL 100 MG TABLET PO (16:06)
[2022-09-29] MEDS: cloNIDine HCL 0.2 MG TABLET PO (16:06)
[2022-09-29] MEDS: Cholecalciferol (Vitamin D3) 25 MCG TABLET 50 MCG PO (16:06)
[2022-09-29] MEDS: lisinopriL 5 MG TABLET PO (16:06)
[2022-09-29] MEDS: Multivitamin TABLET 1 TAB PO (16:06)
--- NOTE | 2022-09-29 16:16 | MHC.CM.ED ---
T/W spoke with [facility]. Trazodone was sent to [facility] on 09/22. Did not receive a RX for hydroxyine. Madison GILBERT has been asked to sent this RX to [facility]. Spoke with Florence at [facility]. Dr Mcarthur will not be able to see patient after 09/02 unless he changes to a [facility] insurance plan. He will accept him after that. Florence will work on getting patient to agree to change to a [employer] plan. When patient was d/c'd from psych, RX were only for 2 weeks. [facility] is requesting refills. Dr Mcarthur is not able to renew these meds at this time. [facility] GILBERT has been asked to send the following medications for refill: acetaminophen, Vitamin D3, clonidine, lisinopril, methadone, nifedipine, oxycodone, Vitamin B1. Madison GILBERT does not believe she can order Methadone and will ask Iman Kirk to complete this RX. Chair van booked for 6pm. Patient, Chang JUAREZ and Madison GILBERT aware. Continue to monitor for d/c needs.
--- NOTE | 2022-09-29 16:40 | MHC.CM.ED ---
Pt aware that he will be transported back to [facility] at 6PM.
[2022-09-29] MEDS: methADONE HCl 5 MG TABLET PO (16:47)
[2022-09-29] MEDS: DULoxetine HCl 20 MG CAPSULE.DR 40 MG PO (16:47)
[2022-09-29] MEDS: hydrOXYzine HCL 25 MG TABLET PO (16:47)
--- NOTE | 2022-09-29 16:48 | PC.NURSE ---
pt medicated per provider order prior to discharge back to [facility] by chair van
--- NOTE | 2022-09-29 17:24 | PC.NURSE ---
RN-RN report called into [facility], medications reviewed w RN.
== END 2022-09-29 17:31 | disposition skilled nursing facility (03) ==
PROVIDERS: Nurse Practitioner Family; Emergency Provider Emergency Medicine Emergency Medical Services
DX: F33.1 Major depressive disorder, recurrent, moderate (principal); R45.851 Suicidal ideations; G89.29 Other chronic pain; Z20.822 Contact with and (suspected) exposure to COVID-19; Z79.899 Other long term (current) drug therapy
CPT/HCPCS: 0241U; 36415; 80048; 80076; 82077; 83690; 85025; 99285

== ENCOUNTER 2022-10-16 14:09 | Emergency (ER) | payer OTHER, SELFPAY ==
[2022-10-16 14:21] VITALS: BP 111/73; PULSE 76; PULSE 97; RESP 18; TEMP 36.1; O2SAT 97; O2SAT 98; BMI 25.7
--- NOTE | 2022-10-16 16:27 | PC.NURSE ---
patient alert, oriented x4. calm and cooperative with staff/care. able to make needs known. 1:1 at the bedside
[2022-10-16 17:08] LABS: MANUAL DIFF FLAG NO
[2022-10-16 17:12] LABS: Basophils Percent Auto 0.6 % (0-2); Eosinophils Absolute Auto 0.3 X10*3/uL (0.0-0.4); Eosinophils Percent Auto 4.9 % (0-4); Imm Gran Abs Auto 0.03 X10*3/uL (0.00-0.03); Imm Gran Pct Auto 0.4 % (0.0-0.4); Lymphocytes Absolute Auto 2.5 X10*3/uL (1.2-4.9); Lymphocytes Percent Auto 37.6 % (20-40); Mean Corpuscular HGB Conc 32.5 g/dl (31.0-36.0); Mean Corpuscular Hemoglobin 29.3 pg (27.0-33.0); Mean Corpuscular Volume 90.3 fL (80.0-98.0); Mean Platelet Volume 10.1 fL (9.4-12.4); Monocytes Absolute Auto 0.7 X10*3/uL (0.1-1.2); Monocytes Percent Auto 10.9 % (2-11); Neutrophils Absolute Auto 3.1 x10*3/uL (2.0-8.3); Neutrophils Percent Auto 45.6 % (45-73); Platelet Count 169 X10*3/uL (160-400); Red Blood Count 4.43 X10*6/uL (4.60-5.80); Red Cell Distribution Width 12.7 % (11.0-16.0); White Blood Count 6.7 X10*3/uL (4.8-10.8)
[2022-10-16 17:27] LABS: Alanine Aminotransferase 23 U/L (0-40); Alkaline Phosphatase 89 U/L (39-117); Anion Gap 13 (12-20); Aspartate Amino Transferase 24 U/L (5-37); Bilirubin Total 0.2 mg/dL (0.0-1.0); Blood Urea Nitrogen 22 mg/dL (9-16); Calcium 9.2 mg/dL (8.4-10.2); Carbon Dioxide 26 mmol/L (22-29); Chloride 104 mmol/L (96-108); Creatinine Clr Calc Pharmacy 93.4; Estimated Glomerular Filt Rate > 60; Ethanol < 10 mg/dL; Glucose Random 101 mg/dL (60-115); Potassium 5.5 mmol/L (3.3-5.1); Sodium 137 mmol/L (135-145)
[2022-10-16 17:46] LABS: Influenza A PCR NEGATIVE (Negative); Influenza B PCR NEGATIVE (Negative); Resp Syncy Virus RNA Qual PCR NEGATIVE (Negative); SARS COV2 PCR INHOUSE NEGATIVE (Negative)
--- NOTE | 2022-10-16 19:01 | ED_ITS ---
HPI - Psych General Chief Complaint: Psychiatric Symptoms Stated Complaint: crisis eval per EMS Time Seen by Provider: 10/16/22 16:03 Source: patient Mode of arrival: EMS Limitations: no limitations History of Present Illness HPI Narrative: Patient is a 67-year-old male presents to the emergency department via EMS. He is currently at a rest home; [facility]. Today he contacted his primary care doctor's office because he ?wanted to talk?. He expressed to the nurse in this office that he wants to . When asked, he denies any specific plan, denies any homicidal ideations. He states that he has been placed in this rest only does not want to be there, he has nobody to, he does express increased stressors. He states has been compliant with medications. He denies recreational drug usage or alcohol usage. He denies any physical complaints at this time. Related Data Home Medications Medication Instructions Recorded Confirmed docusate sodium 100 mg capsule 100 mg PO BID PRN Constipation 09/21/22 09/29/22 (Colace) duloxetine 20 mg capsule,delayed 40 mg PO DAILY 09/21/22 09/29/22 release (Cymbalta) hydroxyzine pamoate 25 mg capsule 25 mg PO TID PRN Anxiety 09/29/22 09/29/22 multivitamin 1 tab PO DAILY 09/29/22 09/29/22 Previous Rx's Medication Instructions Recorded acetaminophen 325 mg tablet 650 mg PO Q6H PRN Pain #120 tabs 09/18/22 (Tylenol) cholecalciferol (vitamin D3) 25 50 mcg PO DAILY #30 tabs 09/18/22 mcg (1,000 unit) tablet clonidine HCl 0.2 mg tablet 0.2 mg PO TID #90 tabs 09/18/22 lisinopril 5 mg tablet 5 mg PO DAILY #30 tabs 09/18/22 methadone 5 mg tablet 5 mg PO Q8H PRN Pain, Moderate 09/18/22 (Pain Scale 4-6 #90 tabs nifedipine 90 mg tablet,extended 90 mg PO DAILY #30 tabs 09/18/22 release 24 hr (Procardia XL) thiamine mononitrate (vit B1) 100 100 mg PO DAILY #30 tabs 09/18/22 mg tablet oxycodone 10 mg tablet 10 mg PO BID PRN pain (scale score 09/19/22 4-6) #60 tabs trazodone 50 mg tablet 50 mg PO BEDTIME PRN insomnia #30 09/19/22 tabs acetaminophen 500 mg capsule 500 mg PO Q6H PRN fever or pain 09/29/22 #20 caps cholecalciferol (vitamin D3) 50 50 mcg PO DAILY #30 caps 09/29/22 mcg (2,000 unit) capsule clonidine HCl 0.2 mg tablet 0.2 mg PO TID #10 tabs 09/29/22 lisinopril 5 mg tablet 5 mg PO DAILY #30 tabs 09/29/22 nifedipine 90 mg tablet,extended 90 mg PO DAILY #30 tabs 09/29/22 release 24 hr oxycodone 10 mg tablet 10 mg PO BID PRN pain (scale score 09/29/22 7-10) #9 tabs thiamine HCl (vitamin B1) 100 mg 100 mg PO DAILY #30 tabs 09/29/22 tablet hydroxyzine HCl 25 mg tablet 25 mg PO QID PRN anxiety #9 tabs 09/30/22 Allergies Allergy/AdvReac Type Severity Reaction Status Date / Time ergotamine [ERGOTAMINE] AdvReac Severe NAUSEA Verified 12/20/21 20:55 Review of Systems Review of Systems: Constitutional : No Fever, No Chills ENT/Mouth : No Ear Pain, No Nasal Congestion, No sore throat Eyes: No Eye Pain, No Swelling, No Redness Cardiovascular : No Chest Pain, No SOB Respiratory : No Cough, No Sputum, No Dyspnea Gastrointestinal : No Nausea, No Vomiting, No Diarrhea, No Hematochezia, No Melena Genitourinary : No Dysuria, No Urinary Frequency, No Hematuria Musculoskeletal : No Myalgias Skin : No Skin Lesions, No rash Neuro : No Weakness, No Numbness, No Paresthesias, No Dizziness, No Headache Psych : positive Anxiety, positive Depression, positive SI/HI Heme/Lymph: No Lymphadenopathy Endocrine : No Polyuria, No Polydipsia Yes all other systems are reviewed and are negative [facility] Past Medical History Attestation statement: The following information was validated with the patient. Source: old records reviewed Medical History Cervical disc herniation HTN (hypertension) Lumbar disc herniation Opioid dependence Pacemaker Thoracic disc herniation Surgical History History of hip replacement History of spinal fusion Family History Family History Mother HTN (hypertension) CHF (congestive heart failure) Social History Social History Household Members: Other Housing: House Do you presently have visiting nurse or other home services: Yes (Meals on Wheels) Alcohol intake: former Patient Tobacco Use Status: Never used Tobacco Second Hand Smoke Exposure: No Substance Use Type: Crack/Cocaine, Heroin, Marijuana, Opiates, Prescription Drugs and Caffiene Advance Directives: No Advance Directives Information Provided: Yes service: No Sexual orientation: Straight/Heterosexual Physical Exam Vital Signs: Vital Signs: Last Vital Signs Temp 97.0 F 10/16/22 14:21 Pulse 76 10/16/22 14:21 Resp 18 10/16/22 14:21 BP 111/73 10/16/22 14:21 Pulse Ox 98 10/16/22 14:21 O2 Del Method 10/16/22 14:21 BMI result Body Mass Index 25.7 Appearance: Alert.?Oriented to person, place and time. No acute distress.?Normal affect. Eyes: Pupils equal, round and reactive to light.? ENT: Pharynx normal.?? Neck: Normal inspection.? Neck supple.?? CVS: Heart sounds normal. Normal heart rate and rhythm.? Pulses normal.?? Respiratory: No respiratory distress.? Lung sounds clear to auscultation bilaterally?? Abdomen: Soft and non-tender. Normoactive bowel sounds. ? Skin: Skin warm and dry.? Normal skin color.??? Extremities: No lower extremity edema.? Neuro: Moves all extremities spontaneously. Sensation intact bilaterally. CN II- XII intact. No focal neuro deficits. Ambulates with normal steady gait. Course Reevaluation(s) Reevaluation #1: Potassium level is 5.5, patient to receive Lokelma PO, EKG revealing accelerated junctional rhythm, no acute hyperkalemia findings. Adding on troponin to labs at this time. He is on lisinopril, which may be the cause for his hyperkalemia. BUN is 22, likely due to dehydration, patient to receive 1 L normal saline IV fluid. Reviewed this case with ED attending Dr. Wagner, plan for repeat BMP for re-evaluation of potassium, and follow-up troponin. Time: 19:06 Medical Decision Making Medical Decision Making [facility] Narrative: Patient is a 67-year-old male with past medical history of depression, hype rtension, pacemaker, history of spinal disc herniations, spinal fusion, currently prescribed methadone and oxycodone for pain management. Presenting today for evaluation of suicidal statements made to PCP office over the phone. He is calm and cooperative at the time of my examination. Without any physical complaints. Vital signs are stable. No neurological deficits. Will obtain basic labs in addition to EKG, drug abuse screen, and ethanol level for medical clearance. He will be referred to [facility] for further evaluation to determine whether inpatient psychiatric services are required at this time. Lab Data [facility] Lab Attestation statement: I reviewed the patient's lab results. Result Diagrams: 10/16/22 17:01 10/16/22 17:01 Labs: Lab Results 10/16/22 10/16/22 10/16/22 Range/Units 17:01 17:01 17:01 WBC 6.7 (4.8-10.8) X10*3/uL RBC 4.43 L (4.60-5.80) X10*6/uL Hgb 13.0 L (14.0-18.0) g/dl Hct 40.0 L (42.0-52.0) % MCV 90.3 (80.0-98.0) fL MCH 29.3 (27.0-33.0) pg MCHC 32.5 (31.0-36.0) g/dl RDW 12.7 (11.0-16.0) % Plt Count 169 (160-400) X10*3/uL MPV 10.1 (9.4-12.4) fL Immature Gran % (Auto) 0.4 (0.0-0.4) % Neut % (Auto) 45.6 (45-73) % Lymph % (Auto) 37.6 (20-40) % [place] % (Auto) 10.9 (2-11) % Eos % (Auto) 4.9 H (0-4) % Baso % (Auto) 0.6 (0-2) % Lymph # (Auto) 2.5 (1.2-4.9) X10*3/uL [place] # (Auto) 0.7 (0.1-1.2) X10*3/uL Eos # (Auto) 0.3 (0.0-0.4) X10*3/uL Baso # (Auto) 0.0 (0.0-0.2) X10*3/uL Abs Immat Gran (auto) 0.03 (0.00-0.03) X10*3/uL Absolute Neuts (auto) 3.1 (2.0-8.3) x10*3/uL Absolute Nucleated RBC 0.000 (0.0-0.012) X10*3/uL Nucleated RBC % (auto) 0.0 (0.0-0.2) /100WBC Sodium 137 (135-145) mmol/L Potassium 5.5 H (3.3-5.1) mmol/L Chloride 104 (96-108) mmol/L Carbon Dioxide 26 (22-29) mmol/L Anion Gap 13 (12-20) BUN 22 H (9-16) mg/dL Creatinine 0.83 (0.5-1.4) mg/dL Estim Creat Clear Calc 93.4 Estimated GFR > 60 Random Glucose 101 (60-115) mg/dL Calcium 9.2 (8.4-10.2) mg/dL Total Bilirubin 0.2 (0.0-1.0) mg/dL AST 24 (5-37) U/L ALT 23 (0-40) U/L Alkaline Phosphatase 89 (39-117) U/L Total Protein 7.0 (6.5-8.0) g/dL Albumin 4.0 (3.5-5.0) g/dL Ethyl Alcohol < 10 mg/dL Influenza Type A (PCR) NEGATIVE (Negative) Influenza Type B (PCR) NEGATIVE (Negative) RSV RNA Qual (PCR) NEGATIVE (Negative) SARS-CoV-2 RNA (RT-PCR) NEGATIVE (Negative) Discharge Plan Discharge Clinical Impression: Suicidal ideation, Hyperkalemia Patient Disposition: Still a Patient Prescriptions: No Action clonidine HCl 0.2 mg Tablet 0.2 mg PO TID Qty: 90 0RF Protocol: Hold for SBP< HOLD for SBP < : 90 lisinopril 5 mg Tablet 5 mg PO DAILY Qty: 30 0RF methadone 5 mg Tablet 5 mg PO Q8H PRN (Reason: Pain, Moderate (Pain Scale 4-6) Qty: 90 0RF cholecalciferol (vitamin D3) 25 mcg (1,000 unit) Tablet 50 mcg PO DAILY Qty: 30 0RF thiamine mononitrate (vit B1) 100 mg Tablet 100 mg PO DAILY Qty: 30 0RF acetaminophen [Tylenol] 325 mg Tablet 650 mg PO Q6H PRN (Reason: Pain) Qty: 120 0RF nifedipine [Procardia XL] 90 mg tablet extended release 24hr 90 mg PO DAILY Qty: 30 0RF oxycodone 10 mg tablet 10 mg PO BID PRN (Reason: pain (scale score 4-6)) Qty: 60 0RF Rx Instructions: Partial Fill upon patient request. trazodone 50 mg tablet 50 mg PO BEDTIME PRN (Reason: insomnia) Qty: 30 0RF docusate sodium [Colace] 100 mg capsule 100 mg PO BID PRN (Reason: Constipation) duloxetine [Cymbalta] 20 mg capsule,delayed release(DR/EC) 40 mg PO DAILY multivitamin Tablet 1 tab PO DAILY hydroxyzine pamoate 25 mg Capsule 25 mg PO TID PRN (Reason: Anxiety) acetaminophen 500 mg capsule 500 mg PO Q6H PRN (Reason: fever or pain) Qty: 20 0RF cholecalciferol (vitamin D3) 50 mcg (2,000 unit) capsule 50 mcg PO DAILY Qty: 30 0RF clonidine HCl 0.2 mg tablet 0.2 mg PO TID Qty: 10 0RF lisinopril 5 mg tablet 5 mg PO DAILY Qty: 30 0RF nifedipine 90 mg tablet extended release 24hr 90 mg PO DAILY Qty: 30 0RF oxycodone 10 mg tablet 10 mg PO BID PRN (Reason: pain (scale score 7-10)) Qty: 9 0RF Rx Instructions: Partial Fill upon patient request. thiamine HCl (vitamin B1) 100 mg tablet 100 mg PO DAILY Qty: 30 0RF hydroxyzine HCl 25 mg tablet 25 mg PO QID PRN (Reason: anxiety) Qty: 9 0RF Interventions: [place]-Suicide Risk Severity Scale Last Done: 10/16/22 14:29
--- NOTE | 2022-10-16 19:07 | ECG_ITS ---
Test Reason : hyperkalemia Blood Pressure : / mmHG Vent. Rate : 079 BPM Atrial Rate : 000 BPM P-R Int : 000 ms QRS Dur : 092 ms QT Int : 396 ms P-R-T Axes : 000 004 039 degrees QTc Int : 454 ms Atrial-paced rhythm Septal infarct , age undetermined Abnormal ECG When compared with ECG of 04-SEP-2022 09:33, No significant changes seen Referred By: Erin Rai Electronically Signed By:ASTER BRENNAN
[2022-10-16] MEDS: Sodium Zirconium Cyclosilicate 10 GM POWD.PACK PO ×2 (19:25→23:47)
[2022-10-16] MEDS: 0.9 % Sodium Chloride 1,000 ML 999 ML IV (19:30)
[2022-10-16 19:58] LABS: Troponin-I High Sensitivity 7.2 ng/L (<3.5-35.0)
[2022-10-16 20:19] VITALS: BP 160/95; PULSE 66; RESP 18; TEMP 36.5; O2SAT 99
[2022-10-16 20:44] LABS: Appearance Urine Clear; Color Urine Yellow; Glucose Urine UA Negative (Negative); Leukocyte Esterase Urine Negative (Negative); Nitrite Urine Negative (Negative); PH 6.5 (5.0-9.0); Specific Gravity - Urine <= 1.005 (1.005-1.025); Urine Blood Negative (Negative); Urine Ketones Negative (Negative); Urine Protein Negative (Neg-Trace)
--- NOTE | 2022-10-16 20:50 | MHC.CARE ---
Pt is a 67-year old, male who was brought into ED via ambulance from living facility after endorsing suicidal ideation to staff. He reported he became upset when staff was attempting to redirect him from making a call to his doctor. He argued that he has been at the facility for 10 days and the staff does not know him. He stated, he does not like being told what to do. Pt is known to CARE TEAM through various assessments and has history of previous psychiatric admissions due to presenting with similar presentation. He has a history of experiencing chronic pain and has not been employed for 20+ years resulting in a decline in his abilities. He resistant to mental health treatment. Pt is observed sitting up on hospital bed. Mood is irritable; affect is congruent. Speech is pressured and forced. Eye contact is intense. Insight, judgment and impulse control appear to be fair. Sleep and appetite are ?normal?. He denies suicidal and homicidal ideation, plan or intent; and does not appear to be responding to an internal stimuli. Alireza Sanchez RN [phone]; Staff reported pt became irritable when attempting to redirect pt from calling his previous doctor to request pain medications. Staff disclosed pt is being tapered off Oxycontin and Methadone resulting in pt experiencing increase pain. According to staff, pt expressed suicidal ideation with a plan to shoot himself in the eye. Staff denied pt has access to a gun and denied pt can get access to one. Staff reported pt is able to return to home tomorrow morning. It is in my clinical opinion that pt appears to be struggling to cope with increasing chronic pain. He is being titrated off pain medications and becomes verbally aggressive when irritable, resulting in pt expressing suicidal ideation. Pt would most benefit from following up with pain management to discuss additional pain treatment opinions. Transportation can be arranged with [facility] staff at 9am.
[2022-10-16 21:00] LABS: Amphetamine Screen Urine Not Detected (Not Detect); Barbiturates, Urine Not Detected (Not Detect); Benzodiazepines Screen Urine Not Detected (Not Detect); Cannabinoid Screen Urine Not Detected (Not Detect); Cocaine Screen Urine Not Detected (Not Detect); Fentanyl, urine Not Detected (Not Detect); Opiate Screen Urine Not Detected (Not Detect); Phencyclidine Screen Urine Not Detected (Not Detect)
--- NOTE | 2022-10-16 22:10 | PC.NURSE ---
Per Briana, pt has been cleared to go back to his SNF. I called [facility] to make sure pt could go back. Per facility, pt cannot be accepted back until the morning due to short staffing. Charge nurse and workers compensation legal secretary aware. Will keep pt comfortable until we are able to send him back.
--- NOTE | 2022-10-16 22:16 | PC.NURSE ---
this rn spoke with Florence the director to [facility] and pt is accepted back and Florence will let Minerva the rn at [facility] know that he is coming back. ems booked.
[2022-10-16 22:54] LABS: Anion Gap 12 (12-20); Blood Urea Nitrogen 18 mg/dL (9-16); Calcium 9.5 mg/dL (8.4-10.2); Carbon Dioxide 28 mmol/L (22-29); Chloride 107 mmol/L (96-108); Creatinine Clr Calc Pharmacy 93.4; Estimated Glomerular Filt Rate > 60; Glucose Random 111 mg/dL (60-115); Potassium 5.3 mmol/L (3.3-5.1); Sodium 142 mmol/L (135-145)
== END 2022-10-16 23:52 | disposition home or self-care (01) ==
PROVIDERS: Nurse Practitioner Family; Emergency Provider Internal Medicine
DX: F33.1 Major depressive disorder, recurrent, moderate (principal); R45.851 Suicidal ideations; E87.5 Hyperkalemia; Z20.822 Contact with and (suspected) exposure to COVID-19; Z79.899 Other long term (current) drug therapy
CPT/HCPCS: 0241U; 36415; 80048; 80053; 80307; 81003; 82077; 84484; 85025; 93005; 96360; 99285

== ENCOUNTER 2022-10-21 19:35 | Inpatient (IN) | payer OTHER, SELFPAY ==
--- NOTE | 2022-10-21 | ECG_ITS ---
Test Reason : MEDICAL CLEAR Blood Pressure : / mmHG Vent. Rate : 072 BPM Atrial Rate : 072 BPM P-R Int : 242 ms QRS Dur : 086 ms QT Int : 420 ms P-R-T Axes : 075 049 061 degrees QTc Int : 459 ms Atrial-paced rhythm with prolonged AV conduction Septal infarct (cited on or before 20-JUL-2014) Abnormal ECG When compared with ECG of 16-OCT-2022 19:11, No significant change was found Referred By: Clinton Kaufman Electronically Signed By:Carlos Baez
[2022-10-21 19:40] VITALS: BP 137/79; PULSE 78; RESP 17; TEMP 36.9; O2SAT 95; BMI 26.4
--- NOTE | 2022-10-21 20:37 | MHC.CARE ---
Pt was evaluated by N in the community for SI with plan to overdose with prescription medications. Pt arrives as a bedsearch.
[2022-10-21 20:39] LABS: Appearance Urine Clear; Color Urine Yellow; Glucose Urine UA Negative (Negative); Leukocyte Esterase Urine Negative (Negative); Nitrite Urine Negative (Negative); Specific Gravity - Urine 1.015 (1.005-1.025); Urine Blood Negative (Negative); Urine Ketones Negative (Negative); Urine Protein Negative (Neg-Trace)
[2022-10-21 20:48] LABS: Amphetamine Screen Urine Not Detected (Not Detect); Barbiturates, Urine Not Detected (Not Detect); Benzodiazepines Screen Urine Not Detected (Not Detect); Cannabinoid Screen Urine Not Detected (Not Detect); Cocaine Screen Urine Not Detected (Not Detect); Fentanyl, urine Not Detected (Not Detect); Opiate Screen Urine Not Detected (Not Detect); Phencyclidine Screen Urine Not Detected (Not Detect)
[2022-10-21 20:50] LABS: COVID-19 Test Negative (Negative); IDNOW Serial# BCCEAD1C
[2022-10-21 21:07] LABS: MANUAL DIFF FLAG NO
--- NOTE | 2022-10-21 21:10 | ED.PSYCH ---
HPI - Psych General Chief Complaint: Psychiatric Symptoms Stated Complaint: si Time Seen by Provider: 10/21/22 19:37 Source: patient and EMS Mode of arrival: EMS Limitations: no limitations History of Present Illness HPI Narrative: 67-year-old male history of opiate abuse on methadone, hypertension, major depression, personality disorder presents to the emergency department as an inpatient bed search seen in the community by the [facility]. According to EMS patient made suicidal comments to somebody he was on the phone with, also made suicidal comments to EMS. When I asked patient why he is here he is very angry and tells me he has no idea why he is here he tells me he never made suicidal comments he tells me he is not harm to self or others does denies any toxic ingestion, tells me he needs to leave a needs to speak to a asbestos hazard abatement worker and the director of this whole facility. Patient very angry. Denies SI, HI. Denies drugs, alcohol and tobacco. Denies visual, auditory and tactile hallucinations. Denies medical complaints. Patient placed on a Section 12 by the care team Related Data Home Medications Medication Instructions Recorded Confirmed clonidine HCl 0.2 mg tablet 1 tab PO TID 10/21/22 10/21/22 duloxetine 20 mg capsule,delayed 1 cap PO BID 10/21/22 10/21/22 release hydroxyzine HCl 25 mg tablet 25 mg PO QID 10/21/22 10/21/22 lisinopril 5 mg tablet 1 tab PO DAILY 10/21/22 10/21/22 methadone 5 mg tablet 5 mg PO TID PRN Pain (Scale Score 10/21/22 10/21/22 4-6) nifedipine 90 mg tablet,extended 1 tab PO DAILY 10/21/22 10/21/22 release 24 hr oxycodone 10 mg tablet 1 tab PO BID PRN Pain 10/21/22 10/21/22 trazodone 50 mg tablet 1 tab PO BEDTIME 10/21/22 10/21/22 Allergies Allergy/AdvReac Type Severity Reaction Status Date / Time ergotamine [ERGOTAMINE] AdvReac Severe NAUSEA Verified 12/20/21 20:55 Review of Systems Review of Systems: Constitutional : No Weight loss, No Fever, No Chills, No Fatigue, No Malaise ENT/Mouth : No sore throat, No Rhinorrhea Eyes: No Eye Pain, No Swelling, No Redness Cardiovascular : No Chest Pain, No SOB, No Dyspnea on Exertion, No Orthopnea, No Edema, No Palpitations Respiratory : No Cough, No Sputum, No Wheezing Gastrointestinal : No Nausea, No Vomiting, No Diarrhea, No Constipation, No abdominal Pain, No Hematochezia, No Melena Genitourinary : No Dysuria, No Urinary Frequency, No Hematuria, Musculoskeletal : No joint pain, No Myalgias, No Joint Swelling Skin : No Skin Lesions, No rash Neuro : No Weakness, No Numbness, No Dizziness, No Headache Psych : No Anxiety/Panic, No Depression All other systems reviewed and are negative Yes all other systems are reviewed and are negative [facility] Past Medical History Attestation statement: The following information was validated with the patient. Source: old records reviewed and nursing notes reviewed Medical History Cervical disc herniation HTN (hypertension) Lumbar disc herniation Opioid dependence Pacemaker Thoracic disc herniation Surgical History History of hip replacement History of spinal fusion Family History Family History Mother HTN (hypertension) CHF (congestive heart failure) Social History Social History Household Members: Other Housing: House Do you presently have visiting nurse or other home services: Yes (Meals on Wheels) Alcohol intake: former Patient Tobacco Use Status: Never used Tobacco Second Hand Smoke Exposure: No Substance Use Type: Crack/Cocaine, Heroin, Marijuana, Opiates, Prescription Drugs and Caffiene Advance Directives: No Advance Directives Information Provided: No service: No Sexual orientation: Straight/Heterosexual Physical Exam Vital Signs: Vital Signs: Last Vital Signs Temp 98.5 F 10/21/22 19:40 Pulse 78 10/21/22 19:40 Resp 17 10/21/22 19:40 BP 137/79 10/21/22 19:40 Pulse Ox 95 10/21/22 19:40 O2 Del Method 10/21/22 19:40 BMI result Body Mass Index 26.4 Vital signs stable Appearance: Alert.? Oriented X3.? No acute distress.? Head: Normocephalic, atraumatic, no step-offs or deformities Eyes: Pupils equal, round and reactive to light.? ENT: Pharynx normal.? Neck: Normal inspection.? Neck supple.? CVS: Normal heart rate and rhythm.? Pulses normal.? Respiratory: No respiratory distress.? Breath sounds normal.? Abdomen: Soft and nontender.? Skin: Skin warm and dry.? Normal skin color.? Normal skin turgor.? Extremities: No lower extremity edema.? No calf ttp. 5/5 strength to bilateral upper and lower extremities Neuro: Oriented X 3.? No motor deficit.? No sensory deficit. CN 2-12 intact Course Reevaluation(s) Reevaluation #1: CBC appears to be within patient's baseline. Chemistry with no acute findings requiring intervention. UA clean. Urine toxicology negative. Salicylates, acetaminophen negative. Ethanol negative. COVID negative. At this time patient will be placed in physician observation to allow more time to be evaluated by the behavioral health team. At time observation was started patient chase cooperative no acute distress will continue to monitor. Patient inpatient bed search and on a Section 12 Time: 22:04 Medical Decision Making Lab Data Result Diagrams: 10/21/22 21:03 10/21/22 21:03 Labs: Lab Results 10/21/22 10/21/22 10/21/22 Range/Units 20:22 20:22 20:22 WBC (4.8-10.8) X10*3/uL RBC (4.60-5.80) X10*6/uL Hgb (14.0-18.0) g/dl Hct (42.0-52.0) % MCV (80.0-98.0) fL MCH (27.0-33.0) pg MCHC (31.0-36.0) g/dl RDW (11.0-16.0) % Plt Count (160-400) X10*3/uL MPV (9.4-12.4) fL Immature Gran % (Auto) (0.0-0.4) % Neut % (Auto) (45-73) % Lymph % (Auto) (20-40) % [place] % (Auto) (2-11) % Eos % (Auto) (0-4) % Baso % (Auto) (0-2) % Lymph # (Auto) (1.2-4.9) X10*3/uL [place] # (Auto) (0.1-1.2) X10*3/uL Eos # (Auto) (0.0-0.4) X10*3/uL Baso # (Auto) (0.0-0.2) X10*3/uL Abs Immat Gran (auto) (0.00-0.03) X10*3/uL Absolute Neuts (auto) (2.0-8.3) x10*3/uL Absolute Nucleated RBC (0.0-0.012) X10*3/uL Nucleated RBC % (auto) (0.0-0.2) /100WBC Sodium (135-145) mmol/L Potassium (3.3-5.1) mmol/L Chloride (96-108) mmol/L Carbon Dioxide (22-29) mmol/L Anion Gap (12-20) BUN (9-16) mg/dL Creatinine (0.5-1.4) mg/dL Estim Creat Clear Calc Estimated GFR Random Glucose (60-115) mg/dL Calcium (8.4-10.2) mg/dL Total Bilirubin (0.0-1.0) mg/dL AST (5-37) U/L ALT (0-40) U/L Alkaline Phosphatase (39-117) U/L Total Protein (6.5-8.0) g/dL Albumin (3.5-5.0) g/dL Urine Color Yellow Urine Appearance Clear Urine pH 5.0 (5.0-9.0) Ur Specific [place] 1.015 (1.005-1.025) Urine Protein Negative (Neg-Trace) mg/dL Urine Glucose (UA) Negative (Negative) mg/dL Urine Ketones Negative (Negative) mg/dL Urine Blood Negative (Negative) Urine Nitrite Negative (Negative) Ur Leukocyte Esterase Negative (Negative) Salicylates (15-30) mg/dL Urine Opiates Screen Not Detected (Not Detect) Urine Fentanyl Screen Not Detected (Not Detect) Acetaminophen (<30) mcg/mL Ur Barbiturates Screen Not Detected (Not Detect) Ur Phencyclidine Scrn Not Detected (Not Detect) Ur Amphetamines Screen Not Detected (Not Detect) U Benzodiazepines Scrn Not Detected (Not Detect) Urine Cocaine Screen Not Detected (Not Detect) U Marijuana (THC) Screen Not Detected (Not Detect) Ethyl Alcohol mg/dL COVID-19 ([facility]OR) Negative (Negative) COVID-19 Clin Com See Note 10/21/22 10/21/22 10/21/22 Range/Units 21:03 21:03 21:03 WBC 7.4 (4.8-10.8) X10*3/uL RBC 4.52 L (4.60-5.80) X10*6/uL Hgb 13.1 L (14.0-18.0) g/dl Hct 39.4 L (42.0-52.0) % MCV 87.2 (80.0-98.0) fL MCH 29.0 (27.0-33.0) pg MCHC 33.2 (31.0-36.0) g/dl RDW 12.9 (11.0-16.0) % Plt Count 172 (160-400) X10*3/uL MPV 10.1 (9.4-12.4) fL Immature Gran % (Auto) 0.3 (0.0-0.4) % Neut % (Auto) 48.3 (45-73) % Lymph % (Auto) 36.5 (20-40) % [place] % (Auto) 10.8 (2-11) % Eos % (Auto) 3.6 (0-4) % Baso % (Auto) 0.5 (0-2) % Lymph # (Auto) 2.7 (1.2-4.9) X10*3/uL [place] # (Auto) 0.8 (0.1-1.2) X10*3/uL Eos # (Auto) 0.3 (0.0-0.4) X10*3/uL Baso # (Auto) 0.0 (0.0-0.2) X10*3/uL Abs Immat Gran (auto) 0.02 (0.00-0.03) X10*3/uL Absolute Neuts (auto) 3.6 (2.0-8.3) x10*3/uL Absolute Nucleated RBC 0.000 (0.0-0.012) X10*3/uL Nucleated RBC % (auto) 0.0 (0.0-0.2) /100WBC Sodium 139 (135-145) mmol/L Potassium 4.5 (3.3-5.1) mmol/L Chloride 106 (96-108) mmol/L Carbon Dioxide 26 (22-29) mmol/L Anion Gap 12 (12-20) BUN 24 H (9-16) mg/dL Creatinine 0.90 (0.5-1.4) mg/dL Estim Creat Clear Calc 83.6 Estimated GFR > 60 Random Glucose 97 (60-115) mg/dL Calcium 9.4 (8.4-10.2) mg/dL Total Bilirubin 0.2 (0.0-1.0) mg/dL AST 23 (5-37) U/L ALT 21 (0-40) U/L Alkaline Phosphatase 87 (39-117) U/L Total Protein 7.6 (6.5-8.0) g/dL Albumin 4.3 (3.5-5.0) g/dL Urine Color Urine Appearance Urine pH (5.0-9.0) Ur Specific [place] (1.005-1.025) Urine Protein (Neg-Trace) mg/dL Urine Glucose (UA) (Negative) mg/dL Urine Ketones (Negative) mg/dL Urine Blood (Negative) Urine Nitrite (Negative) Ur Leukocyte Esterase (Negative) Salicylates < 5.0 L (15-30) mg/dL Urine Opiates Screen (Not Detect) Urine Fentanyl Screen (Not Detect) Acetaminophen < 1 (<30) mcg/mL Ur Barbiturates Screen (Not Detect) Ur Phencyclidine Scrn (Not Detect) Ur Amphetamines Screen (Not Detect) U Benzodiazepines Scrn (Not Detect) Urine Cocaine Screen (Not Detect) U Marijuana (THC) Screen (Not Detect) Ethyl Alcohol < 10 mg/dL COVID-19 ([facility]) (Negative) COVID-19 Clin Com Critical Care Time Critical Care Time Critical Care Time: No Discharge Plan Discharge Clinical Impression: Suicidal ideation Patient Disposition: Still a Patient Prescriptions: No Action trazodone 50 mg tablet 1 tab PO BEDTIME nifedipine 90 mg tablet extended release 24hr 1 tab PO DAILY hydroxyzine HCl 25 mg tablet 25 mg PO QID lisinopril 5 mg tablet 1 tab PO DAILY methadone 5 mg tablet 5 mg PO TID PRN (Reason: Pain (Scale Score 4-6)) oxycodone 10 mg tablet 1 tab PO BID PRN (Reason: Pain) clonidine HCl 0.2 mg tablet 1 tab PO TID duloxetine 20 mg capsule,delayed release(DR/EC) 1 cap PO BID
[2022-10-21 21:11] LABS: Basophils Percent Auto 0.5 % (0-2); Eosinophils Absolute Auto 0.3 X10*3/uL (0.0-0.4); Eosinophils Percent Auto 3.6 % (0-4); Hematocrit 39.4 % (42.0-52.0); Hemoglobin 13.1 g/dl (14.0-18.0); Imm Gran Abs Auto 0.02 X10*3/uL (0.00-0.03); Imm Gran Pct Auto 0.3 % (0.0-0.4); Lymphocytes Absolute Auto 2.7 X10*3/uL (1.2-4.9); Lymphocytes Percent Auto 36.5 % (20-40); Mean Corpuscular HGB Conc 33.2 g/dl (31.0-36.0); Mean Corpuscular Volume 87.2 fL (80.0-98.0); Mean Platelet Volume 10.1 fL (9.4-12.4); Monocytes Absolute Auto 0.8 X10*3/uL (0.1-1.2); Monocytes Percent Auto 10.8 % (2-11); Neutrophils Absolute Auto 3.6 x10*3/uL (2.0-8.3); Neutrophils Percent Auto 48.3 % (45-73); Platelet Count 172 X10*3/uL (160-400); Red Blood Count 4.52 X10*6/uL (4.60-5.80); Red Cell Distribution Width 12.9 % (11.0-16.0); White Blood Count 7.4 X10*3/uL (4.8-10.8)
[2022-10-21 21:27] LABS: Alanine Aminotransferase 21 U/L (0-40); Albumin Level 4.3 g/dL (3.5-5.0); Alkaline Phosphatase 87 U/L (39-117); Anion Gap 12 (12-20); Aspartate Amino Transferase 23 U/L (5-37); Bilirubin Total 0.2 mg/dL (0.0-1.0); Blood Urea Nitrogen 24 mg/dL (9-16); Calcium 9.4 mg/dL (8.4-10.2); Carbon Dioxide 26 mmol/L (22-29); Chloride 106 mmol/L (96-108); Creatinine Clr Calc Pharmacy 83.6; Estimated Glomerular Filt Rate > 60; Glucose Random 97 mg/dL (60-115); Potassium 4.5 mmol/L (3.3-5.1); Sodium 139 mmol/L (135-145); Total Protein 7.6 g/dL (6.5-8.0)
[2022-10-21 21:29] LABS: Acetaminophen LAB < 1 mcg/mL (<30); Ethanol < 10 mg/dL; Salicylate < 5.0 mg/dL (15-30)
--- NOTE | 2022-10-22 00:55 | PC.ADMIT ---
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 PT ENDORSES SUICIDAL IDEATION WITH INTENT TO OVERDOSE ON MEDICATIONS WHEN OUT OF THE HOSPITAL. PT IS PREVIOUSLY KNOWN TO M5. HE IS A CONDITIONAL VOLUNTARY ON 15 MINUTE SAFETY CHECKS. PT HAS BEEN ASSIGNED TO PSYCH/DUAL GROUPS. HE STATED TO CARE TEAM, WHEN I GET MY CHECK AT THE BEGINNING OF THE MONTH IM GOING TO BUY SO MUCH DRUGS TO OVERDOSE . PT SPOKE OF GETTING A GUN TO SHOOT HIMSELF IN THE HEAD. PT DENIES HI/ AH/ VH. PT HAS CHRONIC PAIN AND IS ON METHADONE PRN AND OXYCODONE PRN. PT WAS IRRITABLE UPON ADMISSION, STATING I DIDNT FUCKING ASK TO BE HERE, I WANT TO LEAVE OR AT LEAST GO DOWN STAIRS WHERE THERE IS TV . PT ALSO THREATENED THAT HE COULD CREATE AN EMERGENCY TO BE BROUGHT BACK DOWNSTAIRS. PT REPORTS TROUBLE SLEEPING DUE TO PAIN. PT LIV[facility] AT [facility]. HE REFUSED TO PARTICIPATE IN ADMISSION PROCESS, SAYING IM NOT STAYING HERE SO DONT BOTHER. I AM CHEWING THE DR A NEW ASSHOLE FIRST THING TOMORROW . PTS LEGALS NEED TO BE SIGNED AND SAFETY TOOL NEEDS TO BE COMPLETED. EKG ABNORMAL BUT UNCHANGED SINCE LAST ADMISSION. VITAL SIGNS STABLE. HX OF HYPERTENSION. BUN 24, ALL OTHER LABS UNREMARKABLE.
[2022-10-22 02:01] VITALS: BP 140/87; PULSE 86; RESP 16; TEMP 36.7; O2SAT 96
[2022-10-22] MEDS: oxyCODONE HCl Immed Release 5 MG TABLET 10 MG PO ×2 (03:50→19:09)
[2022-10-22 07:46] VITALS: BP 163/98; PULSE 64; RESP 16; TEMP 36.6; O2SAT 99
[2022-10-22] MEDS: methADONE HCl 5 MG TABLET PO (08:37)
[2022-10-22] MEDS: Acetaminophen 325 MG TABLET 650 MG PO (08:38)
[2022-10-22 09:38] LABS: Estimated Average Glucose 103 mg/dL; Hemoglobin A1c % 5.2 %
[2022-10-22 10:26] LABS: Folate 12.9 ng/mL (> or = 4.0); Vitamin B12 388 pg/mL (200-900)
[2022-10-22 10:28] LABS: Alanine Aminotransferase 22 U/L (0-40); Albumin Level 4.7 g/dL (3.5-5.0); Alkaline Phosphatase 89 U/L (39-117); Anion Gap 14 (12-20); Aspartate Amino Transferase 27 U/L (5-37); Bilirubin Direct < 0.2 mg/dL (0.0-0.5); Bilirubin Total 0.4 mg/dL (0.0-1.0); Blood Urea Nitrogen 19 mg/dL (9-16); Carbon Dioxide 27 mmol/L (22-29); Chloride 105 mmol/L (96-108); Cholesterol 191 mg/dL; Creatinine Clr Calc Pharmacy 91.8; Estimated Glomerular Filt Rate > 60; Glucose Fasting 96 mg/dL (60-99); HDL Cholesterol 63 mg/dL; LDL Cholesterol Calculated 113 mg/dl; Potassium 5.8 mmol/L (3.3-5.1); Sodium 140 mmol/L (135-145); Thyroid Stimulating Hormone 3.25 uIU/mL (0.32-4.0); Total Protein 8.3 g/dL (6.5-8.0); Triglycerides 79 mg/dL
--- NOTE | 2022-10-22 11:54 | PC.NURSE ---
pt signed a 3day notice; medical social worker, provider, & UR notified
[2022-10-22] MEDS: hydrOXYzine HCL 25 MG TABLET PO ×3 (12:13→19:14)
[2022-10-22] MEDS: cloNIDine HCL 0.2 MG TABLET PO ×2 (14:01→19:13)
[2022-10-22 16:52] VITALS: BP 129/68; PULSE 82; RESP 16; TEMP 36.4; O2SAT 97
--- NOTE | 2022-10-22 17:38 | HO.PSYADMNOT ---
HPI Date of Service: 10/22/22 Chief Complaint: Crisis Sources of Information: patient interviewed, chart reviewed and crisis/core team assessment reviewed HPI Subjective Notes: [place] Warning, Conditional Voluntary and 3 Day Healthcare Proxy: No Guardianship: No Medical Problems Affecting Mental Status: No Narrative: 67 yo male, hx of depression, opiate use disorder (medical) to ER via police. Pt had looked at his bank statement and believes that money was stolen from his account-he called his bank and threatened to cut his throat. When police arrived, he continued to verbalize SI, plan to OD on meds when he receives his November check, then told one of the officers that he wished he could take his gun and shoot himself. Denies HI, perceptual alterations. Met with pt today who affirmed the above, reports treatment for him is like throwing snowballs at a frieght train, it does not matter . Reports he can no longer accept the level of pain he has-he has nothing, no one, no goal. I am getting older, sicker, there is no reward in life, I am just trying to go, I see no hope. Discussed his level of lonliness, lack of companionship, and that fellow residents at his rest home are too old for me. [facility] team reports pt is making suicidal statements consistently and experiencing increasing aggression/agitation. Past Psychiatric History: IP: [facility] 03/23, 10/22 Judge[place] [facility] [place] he reports Trials: Cymbalta Medical Evaluation [facility]ed[facility] Medical History Cervical disc herniation HTN (hypertension) Lumbar disc herniation Opioid dependence Pacemaker Thoracic disc herniation Surgical History History of hip replacement History of spinal fusion Family History: Denies Social History: Born and raised in [place] Only child. poor social support common disability for more than 20 years, denies having children or any contact with collateral family. Loss of 2 wives. 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 Exercise used to be pt's outlet-with back, hip injuries he can no longer participate Hx of incarceration for drug related offenses x 2 States institutional structure helps him the most. Substance History: Medical opiate use Trauma History: Losses Diagnostics Vital Signs (24Hr): Vital Signs - 24 hr 10/21/22 19:40 10/22/22 07:46 10/22/22 02:01 Temperature 98.5 F 97.8 F 98.1 F Pulse Rate 78 64 86 Respiratory Rate 17 16 16 Blood Pressure 137/79 163/98 H 140/87 H Pulse Oximetry 95 99 96 Oxygen Delivery Method Room Air Room Air Room Air 10/22/22 16:52 Temperature 97.6 F Pulse Rate 82 Respiratory Rate 16 Blood Pressure 129/68 Pulse Oximetry 97 Oxygen Delivery Method Room Air BMI result Body Mass Index 26.4 Labs Results: 10/21/22 21:03 10/22/22 08:46 Labs: Laboratory Results - last 48 hr 10/21/22 10/21/22 10/21/22 20:22 20:22 20:22 WBC RBC Hgb Hct MCV MCH MCHC RDW Plt Count MPV Immature Gran % (Auto) Neut % (Auto) Lymph % (Auto) [place] % (Auto) Eos % (Auto) Baso % (Auto) Lymph # (Auto) [place] # (Auto) Eos # (Auto) Baso # (Auto) Abs Immat Gran (auto) Absolute Neuts (auto) Absolute Nucleated RBC Nucleated RBC % (auto) Sodium Potassium Chloride Carbon Dioxide Anion Gap BUN Creatinine Estim Creat Clear Calc Estimated GFR Random Glucose Fasting Glucose Estimat Average Glucose Hemoglobin A1c % Calcium Total Bilirubin Direct Bilirubin AST ALT Alkaline Phosphatase Total Protein Albumin Triglycerides Cholesterol LDL Cholesterol, Calc HDL Cholesterol Vitamin B12 Folate TSH Urine Color Yellow Urine Appearance Clear Urine pH 5.0 Ur Specific [place] 1.015 Urine Protein Negative Urine Glucose (UA) Negative Urine Ketones Negative Urine Blood Negative Urine Nitrite Negative Ur Leukocyte Esterase Negative Salicylates Urine Opiates Screen Not Detected Urine Fentanyl Screen Not Detected Acetaminophen Ur Barbiturates Screen Not Detected Ur Phencyclidine Scrn Not Detected Ur Amphetamines Screen Not Detected U Benzodiazepines Scrn Not Detected Urine Cocaine Screen Not Detected U Marijuana (THC) Screen Not Detected Ethyl Alcohol COVID-19 ([facility]) Negative COVID-19 Clin Com See Note 10/21/22 10/21/22 10/21/22 21:03 21:03 21:03 WBC 7.4 RBC 4.52 L Hgb 13.1 L Hct 39.4 L MCV 87.2 MCH 29.0 MCHC 33.2 RDW 12.9 Plt Count 172 MPV 10.1 Immature Gran % (Auto) 0.3 Neut % (Auto) 48.3 Lymph % (Auto) 36.5 [place] % (Auto) 10.8 Eos % (Auto) 3.6 Baso % (Auto) 0.5 Lymph # (Auto) 2.7 [place] # (Auto) 0.8 Eos # (Auto) 0.3 Baso # (Auto) 0.0 Abs Immat Gran (auto) 0.02 Absolute Neuts (auto) 3.6 Absolute Nucleated RBC 0.000 Nucleated RBC % (auto) 0.0 Sodium 139 Potassium 4.5 Chloride 106 Carbon Dioxide 26 Anion Gap 12 BUN 24 H Creatinine 0.90 Estim Creat Clear Calc 83.6 Estimated GFR > 60 Random Glucose 97 Fasting Glucose Estimat Average Glucose Hemoglobin A1c % Calcium 9.4 Total Bilirubin 0.2 Direct Bilirubin AST 23 ALT 21 Alkaline Phosphatase 87 Total Protein 7.6 Albumin 4.3 Triglycerides Cholesterol LDL Cholesterol, Calc HDL Cholesterol Vitamin B12 Folate TSH Urine Color Urine Appearance Urine pH Ur Specific [place] Urine Protein Urine Glucose (UA) Urine Ketones Urine Blood Urine Nitrite Ur Leukocyte Esterase Salicylates < 5.0 L Urine Opiates Screen Urine Fentanyl Screen Acetaminophen < 1 Ur Barbiturates Screen Ur Phencyclidine Scrn Ur Amphetamines Screen U Benzodiazepines Scrn Urine Cocaine Screen U Marijuana (THC) Screen Ethyl Alcohol < 10 COVID-19 ([facility]) COVID-19 Clin Com 10/22/22 10/22/22 10/22/22 08:46 08:46 08:46 WBC RBC Hgb Hct MCV MCH MCHC RDW Plt Count MPV Immature Gran % (Auto) Neut % (Auto) Lymph % (Auto) [place] % (Auto) Eos % (Auto) Baso % (Auto) Lymph # (Auto) [place] # (Auto) Eos # (Auto) Baso # (Auto) Abs Immat Gran (auto) Absolute Neuts (auto) Absolute Nucleated RBC Nucleated RBC % (auto) Sodium 140 Potassium 5.8 H D Chloride 105 Carbon Dioxide 27 Anion Gap 14 BUN 19 H Creatinine 0.82 Estim Creat Clear Calc 91.8 Estimated GFR > 60 Random Glucose Fasting Glucose 96 Estimat Average Glucose 103 Hemoglobin A1c % 5.2 Calcium 10.0 D Total Bilirubin 0.4 Direct Bilirubin < 0.2 AST 27 ALT 22 Alkaline Phosphatase 89 Total Protein 8.3 H Albumin 4.7 Triglycerides 79 Cholesterol 191 LDL Cholesterol, Calc 113 HDL Cholesterol 63 Vitamin B12 388 Folate 12.9 TSH 3.25 Urine Color Urine Appearance Urine pH Ur Specific [place] Urine Protein Urine Glucose (UA) Urine Ketones Urine Blood Urine Nitrite Ur Leukocyte Esterase Salicylates Urine Opiates Screen Urine Fentanyl Screen Acetaminophen Ur Barbiturates Screen Ur Phencyclidine Scrn Ur Amphetamines Screen U Benzodiazepines Scrn Urine Cocaine Screen U Marijuana (THC) Screen Ethyl Alcohol COVID-19 ([facility]) COVID-19 Clin Com Meds/Allergies Meds Home Medications Medication Instructions Recorded Confirmed Type clonidine HCl 0.2 mg tablet 1 tab PO TID 10/21/22 10/21/22 History duloxetine 20 mg capsule,delayed 1 cap PO BID 10/21/22 10/21/22 History release hydroxyzine HCl 25 mg tablet 25 mg PO QID 10/21/22 10/21/22 History lisinopril 5 mg tablet 1 tab PO DAILY 10/21/22 10/21/22 History methadone 5 mg tablet 5 mg PO TID PRN Pain (Scale Score 10/21/22 10/21/22 History 4-6) nifedipine 90 mg tablet,extended 1 tab PO DAILY 10/21/22 10/21/22 History release 24 hr oxycodone 10 mg tablet 1 tab PO BID PRN Pain 10/21/22 10/21/22 History trazodone 50 mg tablet 1 tab PO BEDTIME 10/21/22 10/21/22 History Allergies Allergies Allergy/AdvReac Type Severity Reaction Status Date / Time ergotamine [ERGOTAMINE] AdvReac Severe NAUSEA Verified 12/20/21 20:55 Mental Status Exam Mental Status Exam Patient Appearance: Appropriate Patient Orientation: Person, Place, Time and Situation Level of Consciousness: Alert Patient Behavior: Talkative and Good Eye Contact Mood Description: Depressed and Angry Affect Description: Flat Patient Cognition Impaired: No Ability to Follow Directions: Good Speech Pattern: Spontaneous Speech Memory Description: Intact Hallucinations: None Delusions: Not Present Thought Process: Rumination Thought Content: positive for Circumstantial Depressive Symptoms: Thoughts of /Suicide Judgement: Fair Assessment & Plan Assessment & Plan (1) MDD (major depressive disorder), recurrent episode, moderate: Status: Acute Code(s): F33.1 - Major depressive disorder, recurrent, moderate (2) Suicidal ideation: Status: Acute Code(s): R45.851 - Suicidal ideations (3) Chronic pain: Status: Acute Code(s): G89.29 - Other chronic pain Plan 67 yo male, hx of depression related to several losses, chronic pain with opiate dependence, and disconnection from social contacts. New placement in a rest home where he reports peers are much older than he is and they have nothing in common. Pt, in response to learning he had money stolen from his bank account, became angry and threatened to cut his throat, overdose, shoot himself. Since last discharge he has stopped antidepressant medication (which assists with pain mgt) and reports he has no reason to live as he has no companionship. Plan: Collateral contact ? placement options ?day treatment options Cymbalta 20 mg daily Patient educated on: medication risk/benefits and therapeutic strategies Informed Consent: further education needed Reason for continued inpatient stay Substantial Risk for: harm to self and rapid decompensation Statement Statement: I have reviewed the history and physical and performed a pertinent examination on my patient. No changes have occurred unless specified. If the History and Physical was not performed prior to admission, the Hospitalist's service will be consulted for completing the admission physical. Time Spent With Patient Time: Total time managing care of this patient today _45___ minutes.
[2022-10-22] MEDS: DULoxetine HCl 20 MG CAPSULE.DR PO (19:12)
[2022-10-22] MEDS: traZODone HCL 50 MG TABLET PO (19:13)
[2022-10-23 06:00] VITALS: BP 174/98; PULSE 90; RESP 14; TEMP 36.8; O2SAT 94
[2022-10-23] MEDS: cloNIDine HCL 0.2 MG TABLET PO ×3 (08:15→20:26)
[2022-10-23] MEDS: oxyCODONE HCl Immed Release 5 MG TABLET 10 MG PO ×2 (08:15→17:08)
[2022-10-23] MEDS: hydrOXYzine HCL 25 MG TABLET PO ×4 (08:15→20:28)
[2022-10-23] MEDS: lisinopriL 5 MG TABLET PO (08:16)
[2022-10-23] MEDS: NIFEdipine ER 90 MG TAB.ER.24 PO (08:16)
[2022-10-23] MEDS: DULoxetine HCl 20 MG CAPSULE.DR PO ×2 (08:16→20:26)
[2022-10-23 18:00] VITALS: BP 130/77; PULSE 84; TEMP 36.8; O2SAT 95
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
[2022-10-23] MEDS: traZODone HCL 50 MG TABLET PO (20:26)
[2022-10-23] MEDS: Acetaminophen 325 MG TABLET 650 MG PO (20:27)
[2022-10-24] MEDS: oxyCODONE HCl Immed Release 5 MG TABLET 10 MG PO ×2 (05:25→21:56)
[2022-10-24 06:00] VITALS: BP 155/73; PULSE 82; RESP 16; TEMP 36.8; O2SAT 94
[2022-10-24] MEDS: Magnesium Hydrox/Alum Hydrox 30 ML ORAL.SUSP PO (12:32)
[2022-10-24] MEDS: hydrOXYzine HCL 25 MG TABLET PO ×3 (12:33→21:57)
[2022-10-24] MEDS: cloNIDine HCL 0.2 MG TABLET PO ×2 (14:01→21:55)
[2022-10-24] MEDS: Acetaminophen 325 MG TABLET 650 MG PO (14:04)
[2022-10-24] MEDS: methADONE HCl 5 MG TABLET PO (15:56)
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
[2022-10-24 21:15] VITALS: BP 170/85; PULSE 72; TEMP 37.1
[2022-10-24] MEDS: DULoxetine HCl 20 MG CAPSULE.DR PO (21:56)
[2022-10-24] MEDS: traZODone HCL 50 MG TABLET PO (21:57)
[2022-10-25] MEDS: methADONE HCl 5 MG TABLET PO ×2 (05:17→17:39)
[2022-10-25 06:00] VITALS: BP 187/88; PULSE 80; RESP 14; TEMP 36.8; O2SAT 99
[2022-10-25] MEDS: NIFEdipine ER 90 MG TAB.ER.24 PO (08:25)
[2022-10-25] MEDS: DULoxetine HCl 20 MG CAPSULE.DR PO ×2 (08:25→18:50)
[2022-10-25] MEDS: hydrOXYzine HCL 25 MG TABLET PO ×3 (08:26→18:53)
[2022-10-25] MEDS: cloNIDine HCL 0.2 MG TABLET PO ×3 (08:26→18:51)
[2022-10-25] MEDS: lisinopriL 5 MG TABLET PO (08:26)
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
[2022-10-25] MEDS: oxyCODONE HCl Immed Release 5 MG TABLET 10 MG PO ×2 (15:51→18:51)
[2022-10-25] MEDS: traZODone HCL 50 MG TABLET PO (18:50)
[2022-10-25 19:02] VITALS: BP 116/63; PULSE 79
[2022-10-26] MEDS: methADONE HCl 5 MG TABLET PO ×3 (01:37→21:34)
[2022-10-26] MEDS: hydrOXYzine HCL 25 MG TABLET PO ×5 (01:38→21:33)
[2022-10-26] MEDS: traZODone HCL 50 MG TABLET PO ×2 (01:39→21:33)
[2022-10-26] MEDS: Acetaminophen 325 MG TABLET 650 MG PO (04:47)
[2022-10-26 08:00] VITALS: BP 118/68; PULSE 70; RESP 18; TEMP 37.5; O2SAT 95
[2022-10-26] MEDS: DULoxetine HCl 20 MG CAPSULE.DR PO ×2 (09:23→21:33)
[2022-10-26] MEDS: lisinopriL 5 MG TABLET PO (09:23)
[2022-10-26] MEDS: NIFEdipine ER 90 MG TAB.ER.24 PO (09:23)
[2022-10-26] MEDS: cloNIDine HCL 0.2 MG TABLET PO ×3 (09:24→21:33)
[2022-10-26] MEDS: oxyCODONE HCl Immed Release 5 MG TABLET 10 MG PO ×2 (09:24→13:44)
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
[2022-10-26 17:20] VITALS: BP 104/61; PULSE 69; RESP 18; TEMP 36.8; O2SAT 95
[2022-10-27] MEDS: oxyCODONE HCl Immed Release 5 MG TABLET 10 MG PO ×2 (02:18→14:38)
[2022-10-27 06:00] VITALS: BP 155/88; PULSE 80; RESP 14; TEMP 36.5; O2SAT 95
[2022-10-27] MEDS: cloNIDine HCL 0.2 MG TABLET PO ×3 (08:11→19:37)
[2022-10-27] MEDS: DULoxetine HCl 20 MG CAPSULE.DR PO ×2 (08:11→19:37)
[2022-10-27] MEDS: lisinopriL 5 MG TABLET PO (08:11)
[2022-10-27] MEDS: NIFEdipine ER 90 MG TAB.ER.24 PO (08:11)
[2022-10-27] MEDS: hydrOXYzine HCL 25 MG TABLET PO ×4 (08:15→19:37)
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
--- NOTE | 2022-10-27 12:36 | PC.NURSE ---
oxy 6am,methadone 11am,oxy3pm,methadone 7pm, methadone 2am. prns to coincide when pt had most pain.
[2022-10-27 16:55] VITALS: BP 92/52; PULSE 72; TEMP 37.2
[2022-10-27] MEDS: traZODone HCL 50 MG TABLET PO (19:37)
[2022-10-27 19:43] VITALS: BP 113/69; PULSE 71
[2022-10-28] MEDS: oxyCODONE HCl Immed Release 5 MG TABLET 10 MG PO (06:23)
[2022-10-28] MEDS: NIFEdipine ER 90 MG TAB.ER.24 PO (07:52)
[2022-10-28] MEDS: cloNIDine HCL 0.2 MG TABLET PO (07:52)
[2022-10-28] MEDS: hydrOXYzine HCL 25 MG TABLET PO ×2 (07:52→13:53)
[2022-10-28] MEDS: DULoxetine HCl 20 MG CAPSULE.DR PO (07:52)
[2022-10-28] MEDS: lisinopriL 5 MG TABLET PO (07:53)
[2022-10-28 07:55] VITALS: BP 135/73; PULSE 65; RESP 18; TEMP 36.9; O2SAT 96
--- NOTE | 2022-10-28 12:40 | P.DS_ITS ---
DS: Providers Provider Date of Service: 10/28/22 Date of admission: 10/21/22 23:57 Date of discharge: 10/28/22 Primary care physician: Travis Mcarthur MD Admitting clinician: Irina Mckeon Attending physician on admission: Reinier Fairbanks Attending physician on discharge: Reinier Fairbanks Discharging clinician: Irina Mckeon DS: Diagnosis Discharge Diagnosis (1) MDD (major depressive disorder), recurrent episode, moderate: Status: Acute (2) Suicidal ideation: Status: Resolved (3) Chronic pain: Status: Acute DS: Medications Discharge Medications Home Medications: Home Medications Medication Instructions Recorded Confirmed methadone 5 mg tablet 5 mg PO TID PRN Pain (Scale Score 10/21/22 10/21/22 4-6) oxycodone 10 mg tablet 1 tab PO BID PRN Pain 10/21/22 10/21/22 Previous Rx's Medication Instructions Recorded acetaminophen 325 mg tablet 650 mg PO Q6H PRN Headache/Pain 10/28/22 Mild Scale (1-3) #0 tabs clonidine HCl 0.2 mg tablet 1 tab PO TID #90 tabs 10/28/22 duloxetine 20 mg capsule,delayed 1 cap PO BID #60 caps 10/28/22 release hydroxyzine HCl 25 mg tablet 25 mg PO QID #120 tabs 10/28/22 lisinopril 5 mg tablet 1 tab PO DAILY #30 tabs 10/28/22 nifedipine 90 mg tablet,extended 1 tab PO DAILY #30 tabs 10/28/22 release 24 hr trazodone 50 mg tablet 1 tab PO BEDTIME #30 tabs 10/28/22 Mental Status Exam Mental Status Exam Patient Appearance: Appropriate Patient Orientation: Person, Place, Time and Situation Level of Consciousness: Alert Patient Behavior: Talkative and Good Eye Contact Mood Description: Depressed Affect Description: Flat Patient Cognition Impaired: No Ability to Follow Directions: Good Speech Pattern: Spontaneous Speech Memory Description: Intact Hallucinations: None Delusions: Not Present Thought Process: Rumination Thought Content: positive for Circumstantial Judgement: Good Data Data Completed and Pending Completed studies during hospitalization [Text1]: 10/21/22 10/21/22 10/21/22 20:22 20:22 20:22 WBC RBC Hgb Hct MCV MCH MCHC RDW Plt Count MPV Immature Gran % (Auto) Neut % (Auto) Lymph % (Auto) Door % (Auto) Eos % (Auto) Baso % (Auto) Lymph # (Auto) Door # (Auto) Eos # (Auto) Baso # (Auto) Abs Immat Gran (auto) Absolute Neuts (auto) Absolute Nucleated RBC Nucleated RBC % (auto) Sodium Potassium Chloride Carbon Dioxide Anion Gap BUN Creatinine Estim Creat Clear Calc Estimated GFR Random Glucose Fasting Glucose Estimat Average Glucose Hemoglobin A1c % Calcium Total Bilirubin Direct Bilirubin AST ALT Alkaline Phosphatase Total Protein Albumin Triglycerides Cholesterol LDL Cholesterol, Calc HDL Cholesterol Vitamin B12 Folate TSH Urine Color Yellow Urine Appearance Clear Urine pH 5.0 Ur Specific [place] 1.015 Urine Protein Negative Urine Glucose (UA) Negative Urine Ketones Negative Urine Blood Negative Urine Nitrite Negative Ur Leukocyte Esterase Negative Salicylates Urine Opiates Screen Not Detected Urine Fentanyl Screen Not Detected Acetaminophen Ur Barbiturates Screen Not Detected Ur Phencyclidine Scrn Not Detected Ur Amphetamines Screen Not Detected U Benzodiazepines Scrn Not Detected Urine Cocaine Screen Not Detected U Marijuana (THC) Screen Not Detected Ethyl Alcohol COVID-19 ([facility]) Negative COVID-19 Clin Com See Note 10/21/22 10/21/22 10/21/22 21:03 21:03 21:03 WBC 7.4 RBC 4.52 L Hgb 13.1 L Hct 39.4 L MCV 87.2 MCH 29.0 MCHC 33.2 RDW 12.9 Plt Count 172 MPV 10.1 Immature Gran % (Auto) 0.3 Neut % (Auto) 48.3 Lymph % (Auto) 36.5 Door % (Auto) 10.8 Eos % (Auto) 3.6 Baso % (Auto) 0.5 Lymph # (Auto) 2.7 Door # (Auto) 0.8 Eos # (Auto) 0.3 Baso # (Auto) 0.0 Abs Immat Gran (auto) 0.02 Absolute Neuts (auto) 3.6 Absolute Nucleated RBC 0.000 Nucleated RBC % (auto) 0.0 Sodium 139 Potassium 4.5 Chloride 106 Carbon Dioxide 26 Anion Gap 12 BUN 24 H Creatinine 0.90 Estim Creat Clear Calc 83.6 Estimated GFR > 60 Random Glucose 97 Fasting Glucose Estimat Average Glucose Hemoglobin A1c % Calcium 9.4 Total Bilirubin 0.2 Direct Bilirubin AST 23 ALT 21 Alkaline Phosphatase 87 Total Protein 7.6 Albumin 4.3 Triglycerides Cholesterol LDL Cholesterol, Calc HDL Cholesterol Vitamin B12 Folate TSH Urine Color Urine Appearance Urine pH Ur Specific [place] Urine Protein Urine Glucose (UA) Urine Ketones Urine Blood Urine Nitrite Ur Leukocyte Esterase Salicylates < 5.0 L Urine Opiates Screen Urine Fentanyl Screen Acetaminophen < 1 Ur Barbiturates Screen Ur Phencyclidine Scrn Ur Amphetamines Screen U Benzodiazepines Scrn Urine Cocaine Screen U Marijuana (THC) Screen Ethyl Alcohol < 10 COVID-19 ([facility]) COVID-19 [facility] Com 10/22/22 10/22/22 10/22/22 08:46 08:46 08:46 WBC RBC Hgb Hct MCV MCH MCHC RDW Plt Count MPV Immature Gran % (Auto) Neut % (Auto) Lymph % (Auto) Door % (Auto) Eos % (Auto) Baso % (Auto) Lymph # (Auto) Door # (Auto) Eos # (Auto) Baso # (Auto) Abs Immat Gran (auto) Absolute Neuts (auto) Absolute Nucleated RBC Nucleated RBC % (auto) Sodium 140 Potassium 5.8 H D Chloride 105 Carbon Dioxide 27 Anion Gap 14 BUN 19 H Creatinine 0.82 Estim Creat Clear Calc 91.8 Estimated GFR > 60 Random Glucose Fasting Glucose 96 Estimat Average Glucose 103 Hemoglobin A1c % 5.2 Calcium 10.0 D Total Bilirubin 0.4 Direct Bilirubin < 0.2 AST 27 ALT 22 Alkaline Phosphatase 89 Total Protein 8.3 H Albumin 4.7 Triglycerides 79 Cholesterol 191 LDL Cholesterol, Calc 113 HDL Cholesterol 63 Vitamin B12 388 Folate 12.9 TSH 3.25 Urine Color Urine Appearance Urine pH Ur Specific [place] Urine Protein Urine Glucose (UA) Urine Ketones Urine Blood Urine Nitrite Ur Leukocyte Esterase Salicylates Urine Opiates Screen Urine Fentanyl Screen Acetaminophen Ur Barbiturates Screen Ur Phencyclidine Scrn Ur Amphetamines Screen U Benzodiazepines Scrn Urine Cocaine Screen U Marijuana (THC) Screen Ethyl Alcohol COVID-19 ([facility]) COVID-19 Clin Com DS: Summary Hospital Course Hospital Course: Admission to adult psychiatry for exacerbation of symptoms of depression. Pt reports stopping antidepressant medication prior to admission. Admits to feeling lonely, angry, with chronic SI. Pt has a new placement since his last admission and has not made connections citing peers are too old for him. Medication regime was re-established, pt participated in the milieu and he returned to his assisted living placement with possible options for adding programs to his regime to increase his connection with peers. Time spent discussing smoking cessation with patient: 3 to 10 minutes Status at Discharge Functional status at discharge: independent ambulation Overall status at discharge: patient is back to baseline Time Spent with Patient Time attestation: Total time managing care of this patient today ____ minutes. 35 Time spent: Greater than 30 minutes Discharge Plan Discharge Anticipated Discharge Date/Time: 10/28/22 13:32 Patient Disposition: Xfer SNF Discharge Diagnosis: Recurrent major depression Chronic pain with opiate dependence, medically induced Referrals: [facility] [Other] - Tomorrow (Referral to [facility] Day Program Patient should follow-up with [facility] after discharge regarding application for services.) Travis Mcarthur MD [Primary Care Provider] - 1 Week (OFFICE AWARE OF D/C WILL R EACH OUT TO PT. FOR F/U APPOINTMENT.) Discharge Medications: New acetaminophen 325 mg Tablet 650 mg PO Q6H PRN (Reason: Headache/Pain Mild Scale (1-3)) Qty: 0 0RF Continued methadone 5 mg tablet 5 mg PO TID PRN (Reason: Pain (Scale Score 4-6)) oxycodone 10 mg tablet 1 tab PO BID PRN (Reason: Pain) trazodone 50 mg tablet 1 tab PO BEDTIME Qty: 30 0RF clonidine HCl 0.2 mg tablet 1 tab PO TID Qty: 90 0RF nifedipine 90 mg tablet extended release 24hr 1 tab PO DAILY Qty: 30 0RF hydroxyzine HCl 25 mg tablet 25 mg PO QID Qty: 120 0RF lisinopril 5 mg tablet 1 tab PO DAILY Qty: 30 0RF duloxetine 20 mg capsule,delayed release(DR/EC) 1 cap PO BID Qty: 60 0RF Discharge Orders: Discharge Order (Routine); Ordered 10/28/22 Ordered By: Irina Mckeon Diet: Advance to usual diet Activity on Discharge: As tolerated Stand Alone Forms: Patient Portal Discharge page, Community Support Care Plan Goals: Maintain mood and safe behaviors Take medications as directed Practice coping skills Continue with out patient providers and reach out as needed Health Concerns: Stable mood and behaviors Plan of Treatment: Follow up with out patient appointments and provider connections Take medications as directed. Assessment: Pt interviewed prior to discharge and found to be fully oriented and without any SI or HI. Pt, when he verbalizes SI, reports this is due to isolation and lonliness. He reports he does not want to , but does not want to live like this, alone and with chronic pain. So, interventions focused on optimization of connection with others does have benefit for pt. Pt has insight and demonstrates good judgment in terms of wanting to pursue treatment. Pt is not in imminent risk of harm to self or others and has a safety plan that includes presenting to the closest ER or calling 911 if feeling unsafe. Pt has been observed closely by nursing and unit staff throughout admission. Pt has not engaged in any behaviors that suggest dangerousness to self or others and has demonstrated appropriate behaviors and impulse control. Discharge Date/Time: 10/28/22 14:03
== END 2022-10-28 14:03 | disposition skilled nursing facility (03) | DRG 885 ==
LOC: HO.ED 22:05 → HO.PM5 10-22 00:04
PROVIDERS: Physician Assistant; Admitting Provider Psychiatry & Neurology Psychiatry; Emergency Provider Emergency Medicine; PCP Internal Medicine; Visit Provider Clinical Nurse Specialist Psychiatric/Mental Health, Adult
DX: F33.1 Major depressive disorder, recurrent, moderate (principal); R45.851 Suicidal ideations; F11.20 Opioid dependence, uncomplicated; G89.29 Other chronic pain; I10 Essential (primary) hypertension; Z20.822 Contact with and (suspected) exposure to COVID-19; Z23 Encounter for immunization; Z95.0 Presence of cardiac pacemaker; Z98.1 Arthrodesis status; Z79.899 Other long term (current) drug therapy
CPT/HCPCS: 36415; 80053; 80061; 80076; 80143; 80179; 80307; 81003; 82077; 82607; 82746; 83036; 84443; 85025; 87635; 90686; 93005; 99285

== ENCOUNTER 2023-04-12 20:29 | Inpatient (IN) | payer MEDICARE, OTHER, SELFPAY ==
[2023-04-12] VITALS (7 sets, daily range): BP systolic 115–164; BP diastolic 86–100; PULSE 77–144; RESP 13–20; TEMP 36.6–37.2; O2SAT 96–98; BMI 27.8
--- NOTE | ~2023-04-12 | XR_ITS ---
EXAMINATION: XR CHEST CLINICAL INFORMATION: A. Fib CHF COMPARISON: None available. TECHNIQUE: Frontal view of the chest was obtained. FINDINGS: Lungs clear. Calcification dorsal aorta. Period dual-lead left-sided AICD in place with leads terminating in the region of the right atrium and right ventricle unchanged. Cardiomediastinal silhouette otherwise unremarkable. Bone and soft tissues unremarkable. XR/XR chest 1V IMPRESSION: No acute disease.
--- NOTE | 2023-04-12 20:46 | ECG_ITS ---
Test Reason : CP Blood Pressure : / mmHG Vent. 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 rate has increased BY 58 BPM Questionable change in QRS axis ST now depressed in Lateral leads T wave inversion now evident in Lateral leads Referred By: Generic ED Physician Electronically Signed By:Carlos Baez
--- NOTE | 2023-04-12 20:54 | ED.GENADULT ---
HPI - General Adult General Chief complaint: General Medical Stated complaint: sick psyche harm to self Time Seen by Provider: 04/12/23 20:52 Source: patient Mode of arrival: EMS Limitations: no limitations History of Present Illness HPI narrative: Patient is 67 years old from [facility] with history of hypertension, history of ventricular arrhythmias with status post pacemaker in place, depression, chronic pain on oxycodone and methadone patient did have history of ventricular arrhythmias was on mexiletine also had history of ???atrial fibrillation once when he was diagnosed in [place] but never given any anticoagulation comes in from [facility] as been more depressed and SI does not have any hope or will to leave says that he was not giving methadone for last 4 days and not getting his mexiletine since he been admitted to [facility] been feeling fast started for long time on arrival patient's heart rate was 143 beats per minute irregular irregular AFib patient very vague about his heart. Denies any chest pain shortness of breath or leg swelling drinks caffeinated drinks at least 4-5 times a day Related Data Home Medications Medication Instructions Recorded Confirmed methadone 5 mg tablet 5 mg PO TID PRN Pain (Scale Score 10/21/22 04/12/23 4-6) oxycodone 10 mg tablet 1 tab PO BID PRN Pain 10/21/22 04/12/23 clonidine HCl 0.2 mg tablet 0.2 mg PO TID 04/12/23 04/12/23 clonidine HCl 0.2 mg tablet 0.2 mg PO TID 04/12/23 04/12/23 Previous Rx's Medication Instructions Recorded acetaminophen 325 mg tablet 650 mg PO Q6H PRN Headache/Pain 10/28/22 Mild Scale (1-3) #0 tabs clonidine HCl 0.2 mg tablet 1 tab PO TID #90 tabs 10/28/22 duloxetine 20 mg capsule,delayed 1 cap PO BID #60 caps 10/28/22 release lisinopril 5 mg tablet 1 tab PO DAILY #30 tabs 10/28/22 nifedipine 90 mg tablet,extended 1 tab PO DAILY #30 tabs 10/28/22 release 24 hr trazodone 50 mg tablet 1 tab PO BEDTIME #30 tabs 10/28/22 duloxetine 20 mg capsule,delayed 20 mg PO BID #60 caps 12/05/22 release (Cymbalta) trazodone 50 mg tablet 50 mg PO BEDTIME #30 tabs 12/05/22 duloxetine 20 mg capsule,delayed 20 mg PO BID #60 caps 12/24/22 release (Cymbalta) trazodone 50 mg tablet 50 mg PO BEDTIME #30 tabs 12/24/22 hydroxyzine HCl 25 mg tablet 25 mg PO QID #120 tabs 12/25/22 multivitamin with minerals 1 cap PO DAILY #30 caps 12/31/22 duloxetine 20 mg capsule,delayed 20 mg PO BID #60 caps 01/15/23 release (Cymbalta) hydroxyzine HCl 25 mg tablet 25 mg PO QID #120 tabs 01/15/23 multivitamin,tx-minerals 1 cap PO DAILY #30 caps 01/15/23 (Multi-Vitamin HP/Minerals capsule) trazodone 50 mg tablet 50 mg PO BEDTIME #30 tabs 01/15/23 Allergies Allergy/AdvReac Type Severity Reaction Status Date / Time ergotamine [ERGOTAMINE] AdvReac Severe NAUSEA Verified 04/12/23 20:41 Review of Systems Review of Systems: Yes all other systems are reviewed and are negative [facility] Past Medical History Medical History Cervical disc herniation History of intravenous drug abuse HTN (hypertension) Lumbar disc herniation Opioid abuse Opioid dependence Pacemaker Presence of combination internal cardiac defibrillator (ICD) and pacemaker Thoracic disc herniation Ventricular arrhythmia Surgical History History of hip replacement History of spinal fusion Family History Family History Mother HTN (hypertension) CHF (congestive heart failure) Social History Social History Household Members: Caregiver Household Members Other:: [facility] Housing: Assisted Living Facility Do you presently have visiting nurse or other home services: No (LIVES AT [facility]) Alcohol intake: former Patient Tobacco Use Status: Never used Tobacco Second Hand Smoke Exposure: No Substance Use Type: Crack/Cocaine, Heroin, Marijuana, Opiates, Prescription Drugs and Caffiene Advance Directives: No Advance Directives Information Provided: No service: No Sexual orientation: Straight/Heterosexual Physical Exam ED Vital Signs: Vital Signs - 24 hr 06/11/23 20:42 04/12/23 21:16 04/12/23 22:06 Temperature 97.9 F 99 F Pulse Rate 144 H 130 H 97 Respiratory Rate 20 14 15 Blood Pressure 115/86 147/96 H 130/97 H Pulse Oximetry 98 97 Oxygen Delivery Method Room Air Room Air BMI result Body Mass Index 27.8 Appearance: Alert. Oriented X3. No acute distress. Eyes: PERRLA, No Nystagmus ENT: Pharynx normal. Oral Mucosa moist Neck: Normal inspection. Neck supple. CVS: Tachycardic irregularly irregular no murmur/rub or gallop. Pulses normal. Respiratory: No respiratory distress. Equal air entry bilateral, no wheezing/rales/rhonchi Abdomen: Soft and nontender. Bowel sounds are present, no mass palpable, no CVA tenderness Skin: Skin warm and dry. Normal skin color. Normal skin turgor. Extremities: No lower extremity edema. No calf tenderness psych: Feel depressed and suicidal hopeless denies any hallucination/ delusion Neuro: Oriented X 3. No motor deficit. No sensory deficit.No cerebellar signs , cranial nerves II-XII intact Medications Administered Generic Name Dose Route Start Last Admin Trade Name Freq PRN Reason Stop Dose Admin Enoxaparin Sodium 95 mg 04/12/23 23:00 04/13/23 00:17 Enoxaparin Sodium 100 Mg/Ml Syringe SUBCUT 95 mg Q12H [place] Administration Ondansetron HCl 4 mg 04/12/23 22:09 04/13/23 00:21 Ondansetron Hcl 4 Mg/2 Ml Vial IVPUSH 4 mg Q8H PRN Administration Nausea and Vomiting Sodium Chloride 3 ml 04/13/23 00:00 04/13/23 00:17 0.9 % Sodium Chloride Flush 3 Ml Syringe IVFLUSH 3 ml QSHIFT [place] Administration Discontinued Medications Generic Name Dose Route Start Last Admin Trade Name Freq PRN Reason Stop Dose Admin Diltiazem HCl 10 mg 04/12/23 21:13 04/12/23 21:20 Diltiazem Hcl 50 Mg/10 Ml Vial IVPUSH 04/12/23 21:14 10 mg STAT STA Administration Diltiazem HCl 10 mg 04/12/23 22:08 04/12/23 22:43 Diltiazem Hcl 50 Mg/10 Ml Vial IVPUSH 04/12/23 22:09 Not Given STAT STA Sodium Chloride 1,000 mls @ 999 mls/hr 04/12/23 21:13 04/12/23 22:44 Ns IV 04/12/23 22:13 Infused .Q1H1M ONE Infusion Methadone HCl 40 mg 04/12/23 21:19 04/12/23 22:43 Methadone Hcl 20 Mg/2 Ml Oral.Conc PO 04/12/23 21:20 40 mg ONCE ONE Administration Medical Decision Making Medical Decision Making [facility] Narrative: Patient has significant depression with SI feeling noticed to be in AFib with rapid ventricular rate patient does have a remote history of AFib not taking his mexiletine which was for ventricular arrhythmia also patient not on any anti coagulant. Will start patient on Eliquis a chads score 2 IV Cardizem/Lopressor for rate control. Consult Healthcare Provider Management of the patient was discussed with: Hospitalist Lab Data MDM Lab Attestation statement: I reviewed the patient's lab results. 04/12/23 21:02 04/12/23 21:02 Labs: Lab Results 04/12/23 04/12/23 04/12/23 Range/Units 21:02 21:02 21:02 WBC 7.9 (4.8-10.8) X10*3/uL RBC 5.01 (4.60-5.80) X10*6/uL Hgb 14.5 (14.0-18.0) g/dl Hct 42.3 (42.0-52.0) % MCV 84.4 (80.0-98.0) fL MCH 28.9 (27.0-33.0) pg MCHC 34.3 (31.0-36.0) g/dl RDW 12.4 (11.0-16.0) % Plt Count 188 (160-400) X10*3/uL MPV 10.2 (9.4-12.4) fL Immature Gran % (Auto) 0.1 (0.0-0.4) % Neut % (Auto) 49.4 (45-73) % Lymph % (Auto) 35.9 (20-40) % [place] % (Auto) 10.8 (2-11) % Eos % (Auto) 3.3 (0-4) % Baso % (Auto) 0.5 (0-2) % Lymph # (Auto) 2.8 (1.2-4.9) X10*3/uL [place] # (Auto) 0.9 (0.1-1.2) X10*3/uL Eos # (Auto) 0.3 (0.0-0.4) X10*3/uL Baso # (Auto) 0.0 (0.0-0.2) X10*3/uL Abs Immat Gran (auto) 0.01 (0.00-0.03) X10*3/uL Absolute Neuts (auto) 3.9 (2.0-8.3) x10*3/uL Absolute Nucleated RBC 0.000 (0.0-0.012) X10*3/uL Nucleated RBC % (auto) 0.0 (0.0-0.2) /100WBC PT (10.0-13.1) SEC INR (0.9-1.1) APTT (26.0-36.4) SEC Sodium 141 (135-145) mmol/L Potassium 3.6 D (3.3-5.1) mmol/L Chloride 110 H (96-108) mmol/L Carbon Dioxide 20 L (22-29) mmol/L Anion Gap 15 (12-20) BUN 10 (9-16) mg/dL Creatinine 0.84 (0.5-1.4) mg/dL Estim Creat Clear Calc 92.3 Estimated GFR > 60 Random Glucose 98 (60-115) mg/dL Calcium 9.9 (8.4-10.2) mg/dL Magnesium 2.1 (1.6-2.6) mg/dL Total Bilirubin 0.4 (0.0-1.0) mg/dL Direct Bilirubin 0.1 (0.0-0.5) mg/dL AST 27 (5-37) U/L ALT 22 (0-40) U/L Alkaline Phosphatase 80 (39-117) U/L Troponin I High Sens 4.7 (<3.5-35.0) ng/L Total Protein 8.2 H (6.5-8.0) g/dL Albumin 4.4 (3.5-5.0) g/dL Urine Opiates Screen (Not Detect) Urine Fentanyl Screen (Not Detect) Ur Barbiturates Screen (Not Detect) Ur Phencyclidine Scrn (Not Detect) Ur Amphetamines Screen (Not Detect) U Benzodiazepines Scrn (Not Detect) Urine Cocaine Screen (Not Detect) U Marijuana (THC) Screen (Not Detect) Ethyl Alcohol mg/dL COVID-19 ([facility]) (Negative) COVID-19 Clin Com 04/12/23 04/12/23 04/12/23 Range/Units 21:02 21:02 21:13 WBC (4.8-10.8) X10*3/uL RBC (4.60-5.80) X10*6/uL Hgb (14.0-18.0) g/dl Hct (42.0-52.0) % MCV (80.0-98.0) fL MCH (27.0-33.0) pg MCHC (31.0-36.0) g/dl RDW (11.0-16.0) % Plt Count (160-400) X10*3/uL MPV (9.4-12.4) fL Immature Gran % (Auto) (0.0-0.4) % Neut % (Auto) (45-73) % Lymph % (Auto) (20-40) % [place] % (Auto) (2-11) % Eos % (Auto) (0-4) % Baso % (Auto) (0-2) % Lymph # (Auto) (1.2-4.9) X10*3/uL [place] # (Auto) (0.1-1.2) X10*3/uL Eos # (Auto) (0.0-0.4) X10*3/uL Baso # (Auto) (0.0-0.2) X10*3/uL Abs Immat Gran (auto) (0.00-0.03) X10*3/uL Absolute Neuts (auto) (2.0-8.3) x10*3/uL Absolute Nucleated RBC (0.0-0.012) X10*3/uL Nucleated RBC % (auto) (0.0-0.2) /100WBC PT 11.4 (10.0-13.1) SEC INR 1.0 (0.9-1.1) APTT 32.5 (26.0-36.4) SEC Sodium (135-145) mmol/L Potassium (3.3-5.1) mmol/L Chloride (96-108) mmol/L Carbon Dioxide (22-29) mmol/L Anion Gap (12-20) BUN (9-16) mg/dL Creatinine (0.5-1.4) mg/dL Estim Creat Clear Calc Estimated GFR Random Glucose (60-115) mg/dL Calcium (8.4-10.2) mg/dL Magnesium (1.6-2.6) mg/dL Total Bilirubin (0.0-1.0) mg/dL Direct Bilirubin (0.0-0.5) mg/dL AST (5-37) U/L ALT (0-40) U/L Alkaline Phosphatase (39-117) U/L Troponin I High Sens (<3.5-35.0) ng/L Total Protein (6.5-8.0) g/dL Albumin (3.5-5.0) g/dL Urine Opiates Screen (Not Detect) Urine Fentanyl Screen (Not Detect) Ur Barbiturates Screen (Not Detect) Ur Phencyclidine Scrn (Not Detect) Ur Amphetamines Screen (Not Detect) U Benzodiazepines Scrn (Not Detect) Urine Cocaine Screen (Not Detect) U Marijuana (THC) Screen (Not Detect) Ethyl Alcohol < 10 mg/dL COVID-19 ([facility]) Negative (Negative) COVID-19 Clin Com See Note 04/12/23 Range/Units 21:45 WBC (4.8-10.8) X10*3/uL RBC (4.60-5.80) X10*6/uL Hgb (14.0-18.0) g/dl Hct (42.0-52.0) % MCV (80.0-98.0) fL MCH (27.0-33.0) pg MCHC (31.0-36.0) g/dl RDW (11.0-16.0) % Plt Count (160-400) X10*3/uL MPV (9.4-12.4) fL Immature Gran % (Auto) (0.0-0.4) % Neut % (Auto) (45-73) % Lymph % (Auto) (20-40) % [place] % (Auto) (2-11) % Eos % (Auto) (0-4) % Baso % (Auto) (0-2) % Lymph # (Auto) (1.2-4.9) X10*3/uL [place] # (Auto) (0.1-1.2) X10*3/uL Eos # (Auto) (0.0-0.4) X10*3/uL Baso # (Auto) (0.0-0.2) X10*3/uL Abs Immat Gran (auto) (0.00-0.03) X10*3/uL Absolute Neuts (auto) (2.0-8.3) x10*3/uL Absolute Nucleated RBC (0.0-0.012) X10*3/uL Nucleated RBC % (auto) (0.0-0.2) /100WBC PT (10.0-13.1) SEC INR (0.9-1.1) APTT (26.0-36.4) SEC Sodium (135-145) mmol/L Potassium (3.3-5.1) mmol/L Chloride (96-108) mmol/L Carbon Dioxide (22-29) mmol/L Anion Gap (12-20) BUN (9-16) mg/dL Creatinine (0.5-1.4) mg/dL Estim Creat Clear Calc Estimated GFR Random Glucose (60-115) mg/dL Calcium (8.4-10.2) mg/dL Magnesium (1.6-2.6) mg/dL Total Bilirubin (0.0-1.0) mg/dL Direct Bilirubin (0.0-0.5) mg/dL AST (5-37) U/L ALT (0-40) U/L Alkaline Phosphatase (39-117) U/L Troponin I High Sens (<3.5-35.0) ng/L Total Protein (6.5-8.0) g/dL Albumin (3.5-5.0) g/dL Urine Opiates Screen Not Detected (Not Detect) Urine Fentanyl Screen Not Detected (Not Detect) Ur Barbiturates Screen Not Detected (Not Detect) Ur Phencyclidine Scrn Not Detected (Not Detect) Ur Amphetamines Screen Not Detected (Not Detect) U Benzodiazepines Scrn Not Detected (Not Detect) Urine Cocaine Screen Not Detected (Not Detect) U Marijuana (THC) Screen Not Detected (Not Detect) Ethyl Alcohol mg/dL COVID-19 ([facility]) (Negative) COVID-19 Clin Com Independent Interpretation I performed an independent interpretation of an: EKG Interpretation: Atrial fibrillation with rapid ventricular rate 130 beats per minute nonspecific ST T wave changes, no acute ischemia Discharge Plan Discharge Clinical Impression: Atrial fibrillation with RVR, Depressive disorder, Passive suicidal ideations Patient Disposition: Admitted As Inpatient
[2023-04-12 21:08] LABS: MANUAL DIFF FLAG NO
[2023-04-12 21:09] LABS: Basophils Percent Auto 0.5 % (0-2); Eosinophils Absolute Auto 0.3 X10*3/uL (0.0-0.4); Eosinophils Percent Auto 3.3 % (0-4); Hematocrit 42.3 % (42.0-52.0); Hemoglobin 14.5 g/dl (14.0-18.0); Imm Gran Abs Auto 0.01 X10*3/uL (0.00-0.03); Imm Gran Pct Auto 0.1 % (0.0-0.4); Lymphocytes Absolute Auto 2.8 X10*3/uL (1.2-4.9); Lymphocytes Percent Auto 35.9 % (20-40); Mean Corpuscular HGB Conc 34.3 g/dl (31.0-36.0); Mean Corpuscular Hemoglobin 28.9 pg (27.0-33.0); Mean Corpuscular Volume 84.4 fL (80.0-98.0); Mean Platelet Volume 10.2 fL (9.4-12.4); Monocytes Absolute Auto 0.9 X10*3/uL (0.1-1.2); Monocytes Percent Auto 10.8 % (2-11); Neutrophils Absolute Auto 3.9 x10*3/uL (2.0-8.3); Neutrophils Percent Auto 49.4 % (45-73); Platelet Count 188 X10*3/uL (160-400); Red Blood Count 5.01 X10*6/uL (4.60-5.80); Red Cell Distribution Width 12.4 % (11.0-16.0); White Blood Count 7.9 X10*3/uL (4.8-10.8)
[2023-04-12] MEDS: dilTIAZem HCL 50 MG/10 ML VIAL 10 MG IVPUSH (21:20)
[2023-04-12] MEDS: 0.9 % Sodium Chloride 1,000 ML 999 ML IV (21:23)
[2023-04-12 21:25] LABS: Anion Gap 15 (12-20)
[2023-04-12 21:27] LABS: Prothrombin Time 11.4 SEC (10.0-13.1)
[2023-04-12 21:27] LABS: Alanine Aminotransferase 22 U/L (0-40); Albumin Level 4.4 g/dL (3.5-5.0); Alkaline Phosphatase 80 U/L (39-117); Aspartate Amino Transferase 27 U/L (5-37); Bilirubin Direct 0.1 mg/dL (0.0-0.5); Bilirubin Total 0.4 mg/dL (0.0-1.0); Blood Urea Nitrogen 10 mg/dL (9-16); Calcium 9.9 mg/dL (8.4-10.2); Carbon Dioxide 20 mmol/L (22-29); Chloride 110 mmol/L (96-108); Creatinine Clr Calc Pharmacy 92.3; Estimated Glomerular Filt Rate > 60; Ethanol < 10 mg/dL; Glucose Random 98 mg/dL (60-115); Magnesium 2.1 mg/dL (1.6-2.6); Potassium 3.6 mmol/L (3.3-5.1); Sodium 141 mmol/L (135-145); Total Protein 8.2 g/dL (6.5-8.0)
[2023-04-12 21:29] LABS: COVID-19 Test Negative (Negative); IDNOW Serial# 08D9AD1C
[2023-04-12 21:29] LABS: Partial Thromboplastin Time 32.5 SEC (26.0-36.4)
[2023-04-12 21:30] LABS: Troponin-I High Sensitivity 4.7 ng/L (<3.5-35.0)
--- NOTE | 2023-04-12 22:00 | PC.NURSE ---
this rn assumed care of pt @ 2041. dr blankenship made aware of pt status. iv placed 20 in R ac. pt cooperative. bloodwork and ekg obtained.pt making SI statements. pt changed into hospital attire. 1:[address]
[2023-04-12 22:06] LABS: Amphetamine Screen Urine Not Detected (Not Detect); Barbiturates, Urine Not Detected (Not Detect); Benzodiazepines Screen Urine Not Detected (Not Detect); Cannabinoid Screen Urine Not Detected (Not Detect); Cocaine Screen Urine Not Detected (Not Detect); Fentanyl, urine Not Detected (Not Detect); Opiate Screen Urine Not Detected (Not Detect); Phencyclidine Screen Urine Not Detected (Not Detect)
--- NOTE | 2023-04-12 22:09 | MHC.EDTECH ---
Pt is on 1:1 obs with tw. Pt stated: I'm living in a Rest Home, I hate it I just want to be , I tried to , I just lived too long . When they (the care team) come to talk to me I will say I was just kidding, I'm not suicidal. Pt uses humor and is able to advocated for his own needs.
--- NOTE | 2023-04-12 22:12 | PM.IMHP ---
History of Present Illness Date of Service: 04/12/23 Attending physician on admission: Elizabeth Stokes Chief Complaint: depression, uncontrolled pain 67-year-old male with history of hypertension, history of ventricular arrhythmia is s/p pacemaker/AICD, depression, chronic pain on oxycodone and methadone presented to ED from snf with increased depression and SI per ED provider as well as uncontrolled pain as he has not received his methadone doses in 4-5 days. Per ED provider he has made statements of hopelessness and stated to the nurse that ?if I had a gun, I would kill myself?. On my exam, patient is adamant that he has no active intent to commit suicide and states his worsening depression stems from living in a snf and having chronic pain. However, he did make statement that ?now UC why I want to kill myself?. He states he has been seen by multiple cardiologists including those at the [facility] for ventricular arrhythmia is and has question of atrial fibrillation though he is not certain of this. He is not on anticoagulation at this time. He does endorse a fluttering sensation in his chest feels skipped beats occasionally but denies any shortness of breath, lightheadedness, or chest pain. He denies any recent illness. No fevers or chills, abdominal pain, nausea, vomiting, urinary symptoms, diarrhea. He does endorse drinking significant caffeine throughout the day up to 4-5 caffeinated beverages daily. On arrival, patient tachycardic to 144, vitals otherwise stable, no hypotension. He was given 10 mg IV diltiazem with improvement in heart rate to 97. However, on my examination, heart rate has returned to 120-135. There is no leukocytosis or anemia. Renal function normal, electrolyte levels unremarkable. Troponin 4.7. Urine tox screen negative. Chest x-ray negative for any acute cardiopulmonary disease. EKG shows atrial fibrillation with RVR and PVCs or aberrantly conducted complexes, rate [address]/T-wave abnormality, no ENA pr depressions. In addition to the diltiazem, patient also received 1 L IV NS. Review of Systems Review of Systems: General: No fevers, malaise, unintentional weight loss HEENT: No blurred vision, diplopia. No sore throat, nasal congestion, rhinorrhea, sinus pain, ear pain Cardiovascular: +palpitations. No chest pain, or leg edema Respiratory: No shortness of breath, wheezing, cough GI: No abdominal pain, nausea, vomiting, diarrhea, constipation, melena, hematochezia : No dysuria, hematuria, increased urinary frequency, decreased urinary output MSK: No myalgia, back pain Neuro: No headaches, weakness, paresthesias Psych: +depression, +passive SI Skin: No rashes or lesions [facility] Medical History Cervical disc herniation History of intravenous drug abuse HTN (hypertension) Lumbar disc herniation Opioid abuse Opioid dependence Pacemaker Presence of combination internal cardiac defibrillator (ICD) and pacemaker Thoracic disc herniation Ventricular arrhythmia Family History Mother HTN (hypertension) CHF (congestive heart failure) Surgical History History of hip replacement History of spinal fusion Social History Household Members: Caregiver Household Members Other:: [facility] Housing: Assisted Living Facility Do you presently have visiting nurse or other home services: No (LIVES AT [facility]) Alcohol intake: former Patient Tobacco Use Status: Never used Tobacco Second Hand Smoke Exposure: No Substance Use Type: Crack/Cocaine, Heroin, Marijuana, Opiates, Prescription Drugs and Caffiene Advance Directives: No Advance Directives Information Provided: No service: No Sexual orientation: Straight/Heterosexual Meds Allergies Allergy/AdvReac Type Severity Reaction Status Date / Time ergotamine [ERGOTAMINE] AdvReac Severe NAUSEA Verified 04/12/23 20:41 Active Medications: Current Medications Sodium Chloride (Ns) 1,000 mls @ 999 mls/hr IV .Q1H1M ONE Stop: 04/12/23 22:13 Last Admin: 04/12/23 21:23 Dose: 999 mls/hr Pharmacy Consult (Consult Rx Perform Med Rec) 1 each MISCELLANE ONCE PRN PRN Reason: Consult order Home Medications Medication Instructions Recorded Confirmed Last Taken Type methadone 5 mg tablet 5 mg PO TID PRN Pain (Scale Score 10/21/22 10/21/22 Unknown History 4-6) oxycodone 10 mg tablet 1 tab PO BID PRN Pain 10/21/22 10/21/22 Unknown History Physical Exam Vital Signs and Narrative: Vital Signs: Last Vital Signs Temp 99 F 04/12/23 22:06 Pulse 97 04/12/23 22:06 Resp 15 04/12/23 22:06 BP 130/97 H 04/12/23 22:06 Pulse Ox 97 04/12/23 22:06 O2 Del Method Room Air 04/12/23 22:06 BMI result Body Mass Index 27.8 Constitutional - Awake and Alert, No apparent distress Eyes - PERRLA, EOMI Cardiovascular - S1S2, irregularly irregular, tachycardia, No edema Respiratory - Normal lung expansion, Normal respiratory effort, No respiratory distress, CTA bilaterally Gastrointestinal - NT / ND; +BS; No rebound or guarding Extremities - no calf tenderness bilaterally, no swelling Skin - Warm/Dry Neurological - Alert & oriented x3, CN II-XII in tact, 5/5 strength BUE and BLE Psychological - Depressed mood, making passively suicidal statements, no plan/intent Results Labs 04/12/23 21:02 04/12/23 21:02 Labs: Laboratory Results - last 24 hr 04/12/23 04/12/23 04/12/23 21:02 21:02 21:02 MCV 84.4 MCH 28.9 MCHC 34.3 RDW 12.4 Plt Count 188 MPV 10.2 Immature Gran % (Auto) 0.1 Neut % (Auto) 49.4 Lymph % (Auto) 35.9 [place] % (Auto) 10.8 Eos % (Auto) 3.3 Baso % (Auto) 0.5 Lymph # (Auto) 2.8 [place] # (Auto) 0.9 Eos # (Auto) 0.3 Baso # (Auto) 0.0 Abs Immat Gran (auto) 0.01 Absolute Neuts (auto) 3.9 Absolute Nucleated RBC 0.000 Nucleated RBC % (auto) 0.0 PT INR APTT Anion Gap 15 Estim Creat Clear Calc 92.3 Estimated GFR > 60 Random Glucose 98 Calcium 9.9 Magnesium 2.1 Total Bilirubin 0.4 Direct Bilirubin 0.1 AST 27 ALT 22 Alkaline Phosphatase 80 Troponin I High Sens 4.7 Total Protein 8.2 H Albumin 4.4 Urine Opiates Screen Urine Fentanyl Screen Ur Barbiturates Screen Ur Phencyclidine Scrn Ur Amphetamines Screen U Benzodiazepines Scrn Urine Cocaine Screen U Marijuana (THC) Screen Ethyl Alcohol COVID-19 ([facility]) COVID-19 [employer] 04/12/23 04/12/23 04/12/23 21:02 21:02 21:13 MCV MCH MCHC RDW Plt Count MPV Immature Gran % (Auto) Neut % (Auto) Lymph % (Auto) [place] % (Auto) Eos % (Auto) Baso % (Auto) Lymph # (Auto) [place] # (Auto) Eos # (Auto) Baso # (Auto) Abs Immat Gran (auto) Absolute Neuts (auto) Absolute Nucleated RBC Nucleated RBC % (auto) PT 11.4 INR 1.0 APTT 32.5 Anion Gap Estim Creat Clear Calc Estimated GFR Random Glucose Calcium Magnesium Total Bilirubin Direct Bilirubin AST ALT Alkaline Phosphatase Troponin I High Sens Total Protein Albumin Urine Opiates Screen Urine Fentanyl Screen Ur Barbiturates Screen Ur Phencyclidine Scrn Ur Amphetamines Screen U Benzodiazepines Scrn Urine Cocaine Screen U Marijuana (THC) Screen Ethyl Alcohol < 10 COVID-19 ([facility]) Negative [employer] See Note 04/12/23 21:45 MCV MCH MCHC RDW Plt Count MPV Immature Gran % (Auto) Neut % (Auto) Lymph % (Auto) [place] % (Auto) Eos % (Auto) Baso % (Auto) Lymph # (Auto) [place] # (Auto) Eos # (Auto) Baso # (Auto) Abs Immat Gran (auto) Absolute Neuts (auto) Absolute Nucleated RBC Nucleated RBC % (auto) PT INR APTT Anion Gap Estim Creat Clear Calc Estimated GFR Random Glucose Calcium Magnesium Total Bilirubin Direct Bilirubin AST ALT Alkaline Phosphatase Troponin I High Sens Total Protein Albumin Urine Opiates Screen Not Detected Urine Fentanyl Screen Not Detected Ur Barbiturates Screen Not Detected Ur Phencyclidine Scrn Not Detected Ur Amphetamines Screen Not Detected U Benzodiazepines Scrn Not Detected Urine Cocaine Screen Not Detected U Marijuana (THC) Screen Not Detected Ethyl Alcohol COVID-19 ([facility]) COVID-[employer] Assessment and Plan (1) Atrial fibrillation with RVR: Status: Acute (2) Passive suicidal ideations: Status: Acute Plan 67-year-old male with history of hypertension, history of ventricular arrhythmia is s/p pacemaker/AICD, depression, chronic pain on oxycodone and methadone admitted for atrial fibrillation with RVR. #Atrial fibrillation with RVR -EKG showing afib with RVR, rate 130 -Given 10mg IVpush dilt with some improvement, but HR increased again 120-135 on exam. Addl 10mg push IV dilt ordered -Continue PO rate control medications -Initiate therapeutic lovenox. [id number] score 2 -echo ordered -cardiology consult -cardiac diet -admit to telemetry -consult on caffeine use #Depression with passive SI -pt adamantly denies any active SI/plan/intent but has made other aunts is to this provider and nurse concerning for suicidality and does endorse passive SI -sitter ordered -care team consult and psychiatry consult placed -continue home meds # chronic pain disorder -resume methadone, unclear why this was not being given at [facility] -continue oxycodone # hypertension-reasonably controlled -continue home meds DVT prophylaxis-therapeutic Lovenox DNR/DNI Patient requires inpatient stay at least 2 midnights for management of atrial fibrillation with RVR requiring IV rate control medications, close cardiac monitoring, expert consultation. Time Spent With Patient Time: Total time managing care of this patient today ____ minutes. Quality Stroke Does the patient have a stroke diagnosis?: No VTE Prior VTE?: No VTE Risk Level:: Medical - moderate - high VTE Device Contraindication: Treatment Not Indicated VTE Drug Contraindication: N/A - Med Ordered
[2023-04-12] MEDS: methADONE HCl 20 MG/2 ML ORAL.CONC 40 MG PO (22:43)
--- NOTE | 2023-04-12 22:55 | MHC.CARE ---
CARE Team received a consult for a risk assessment on the pt, even though he has been medically admitted. The pt has been making vague suicidal remarks, i.e. I wish I were , my life sucks, everyone I knew is , I'm the last one left, I've been twice with no kids, and I'm in chronic pain. T/W asked the pt bluntly if he has a plan on how he would end his life and the pt stated that he doesn't want to end his life, he just wants to already. T/W asked about wanting to hurt himself and the pt stated that he does not want to hurt himself either. Pt has a hx of self injurious behavior when he was younger. Pt stated, why should I lie? I just don't want to be here anymore. Pt stated that even though he does not want to live any longer that he is not suicidal and would never try to take his own life. He stated that he hates where he was moved to, a SNF, but he has only been there about 5 days. T/W encouraged the pt to try and reach out to other residents there and see if they have things in common. T/W encouraged the pt to remember the past as these are very fond memories that he has. T/W asked the pt if he would ever take a mental health medication to try and make life a little better and the pt declined. T/W asked the pt if he would like a therapist and the pt declined. T/W informed the pt that if he wants to talk any longer to ask the tech to get him and t/w would return. Pt stated that he doesn't even want to be here now. He stated just give me pain pills and let me go back home. CARE Team informed the hospitalist that the pt was seen and that the CARE Team did not think the pt needed to be on a section 12 at this time.
--- NOTE | 2023-04-12 23:20 | PC.NURSE ---
late entry- med rec performed utilizing pt medication list
--- NOTE | 2023-04-12 23:35 | PC.NURSE ---
@ 4271 this rn made khushbu ebard aware of hr 77 bp 136/88. @ 2244 hr 120. per caleb hold diltiazem ivp at this time.
[2023-04-13] VITALS (8 sets, daily range): BP systolic 108–135; BP diastolic 62–91; PULSE 67–134; RESP 16–20; TEMP 36–36.8; O2SAT 92–96
[2023-04-13] MEDS: Enoxaparin Sodium 100 MG/ML SYRINGE 95 MG SUBCUT ×3 (00:17→21:26)
[2023-04-13] MEDS: 0.9 % Sodium Chloride Flush 3 ML SYRINGE IVFLUSH (00:17)
[2023-04-13] MEDS: ondansetron HCL 4 MG/2 ML VIAL IVPUSH (00:21)
[2023-04-13] MEDS: dilTIAZem HCL 50 MG/10 ML VIAL 10 MG IVPUSH (00:28)
--- NOTE | 2023-04-13 00:35 | PC.NURSE ---
dr grubbs made aware of pt hr 120/130s. pt awake and talking at this time. pt medicated according to dec.
[2023-04-13] MEDS: dilTIAZem HCL 125 MG in 0.9 % Sodium Chloride 100 ML IVCONT (02:12)
[2023-04-13] MEDS: Acetaminophen 325 MG TABLET 650 MG PO ×3 (02:14→16:09)
[2023-04-13 05:41] LABS: MANUAL DIFF FLAG NO
[2023-04-13 05:50] LABS: Basophils Percent Auto 0.5 % (0-2); Eosinophils Absolute Auto 0.3 X10*3/uL (0.0-0.4); Eosinophils Percent Auto 3.4 % (0-4); Hematocrit 41.4 % (42.0-52.0); Hemoglobin 13.6 g/dl (14.0-18.0); Imm Gran Abs Auto 0.05 X10*3/uL (0.00-0.03); Imm Gran Pct Auto 0.6 % (0.0-0.4); Lymphocytes Absolute Auto 3.5 X10*3/uL (1.2-4.9); Lymphocytes Percent Auto 40.3 % (20-40); Mean Corpuscular HGB Conc 32.9 g/dl (31.0-36.0); Mean Corpuscular Hemoglobin 28.7 pg (27.0-33.0); Mean Corpuscular Volume 87.3 fL (80.0-98.0); Mean Platelet Volume 10.7 fL (9.4-12.4); Neutrophils Absolute Auto 3.9 x10*3/uL (2.0-8.3); Neutrophils Percent Auto 44.2 % (45-73); Platelet Count 170 X10*3/uL (160-400); Red Blood Count 4.74 X10*6/uL (4.60-5.80); Red Cell Distribution Width 12.6 % (11.0-16.0); White Blood Count 8.8 X10*3/uL (4.8-10.8)
[2023-04-13 06:06] LABS: Anion Gap 13 (12-20); Blood Urea Nitrogen 10 mg/dL (9-16); Calcium 9.7 mg/dL (8.4-10.2); Carbon Dioxide 26 mmol/L (22-29); Chloride 111 mmol/L (96-108); Creatinine Clr Calc Pharmacy 83.4; Estimated Glomerular Filt Rate > 60; Glucose Random 123 mg/dL (60-115); Potassium 5.5 mmol/L (3.3-5.1); Sodium 144 mmol/L (135-145)
--- NOTE | 2023-04-13 07:00 | CA_ITS ---
Transthoracic Echocardiogram Patient (Last, First, Middle): Aaron Hernandes P Gender: Male Date of : 1955 Age: 67 Procedure Date: 04/13/2023 Procedure Type: Transthoracic Echocardiogram Location: [facility] [place] Height: 180.34 cm Weight: 81. kg BSA: 2.01 m2 Heart Rate: bpm BP: 128 / 70 mmHg Vocational Nursing Instructor: Referring MD: Darya GILBERT [employer] Boring Machine Operator: Misha Hernández MD Symptoms: afib rvr Study Quality: Technically Difficult ECG Rhythm: Atrial Fibrillation Conclusions: - 1. Technically difficult study with off axis parasternal views 2. LV systolic function appears normal with LVEF of 55-60% 3. At least mildly dilated left atrium 4. Normal cardiac valvular Dopplers 5. Normal RV systolic pressure Findings Procedure Information Contrast agent, definity, is being given per protocol without apparent complications. Left Ventricle Normal left ventricular cavity size. There is normal left ventricular wall thickness. The left ventricular systolic function is normal. The visually estimated ejection fraction is between 55-60%. Diastolic function is indeterminate on the basis of available data. Right Ventricle Normal right ventricular cavity size and systolic function. There is an ICD wire seen in the right ventricle. Atria The left atrium is mildly dilated. Interatrial shunt cannot be excluded. The right atrium is normal in size. Aortic Valve The aortic valve was not well visualized. There is no aortic valve stenosis. There is no aortic valve regurgitation. Mitral Valve Likely normal mitral valve structure and function. There is trace mitral valve regurgitation. There is no mitral valve stenosis. Pulmonic Valve The pulmonic valve was not well visualized. Tricuspid Valve Likely normal tricuspid valve structure and function. There is trace tricuspid valve regurgitation. The right ventricular systolic pressure is normal. The right ventricular systolic pressure is 24 mmHg. Normal right atrial pressure. There is no evidence of pulmonary hypertension. Great Vessels The aorta was not well visualized. The pulmonary artery was not well visualized. Venous The inferior vena cava was not well visualized. Pericardium/Pleural The pericardium was not well visualized. Prior Study Comparison No prior study available for comparison. Measurements 2D Linear Measurements IVSd: 1.12 0.6-0.9/0.6-1.0 cm LVIDd: 3.65 3.9-5.3/4.2-5.9 cm LVIDd Index: 1.82 2.4-3.2/2.2-3.1 cm/m2 LVIDs: 2.99 2.0-3.6 cm LVPWd: 1.14 0.7-1.1 cm Ao Root: 3.40 2.1-3.5 cm LA Diam: 4.10 2.7-3.8/3.0-4.0 cm LAIDs Index: 2.04 1.5-2.3 cm/m2 LV Mass: 164.11 67-162/88-224 g LV Mass Index: 81.65 43-95/49-115 g/m2 LVOT Diam: 2.20 3.0+(-)1.3 cm Mitral Valve MV Pk E: 0.93 MV Decel Time: 194.00 E'Lateral: 17.50 E'Medial: 7.40 E/E' Med: 12.60 E/E' Lat: 5.30 Aortic Valve AoV Pk Charanjit: 1.36 AoV Mn Charanjit: 0.89 AoV VTI: 0.25 AoV Pk Grad: 7.00 Aov Mn Grad: 4.00 EDDIE Cont.VTI: 1.78 LVOT LVOT Pk Charanjit: 0.66 LVOT Mn Charanjit: 0.38 LVOT VTI: 0.12 LVOT Pk Grad: 2.00 LVOT Mn Grad: 1.00 LVOT Diam: 2.20 LVOT Area: 3.80 Diastolic Function MV Pk E: 0.93 E'Medial: 7.40 E/E' Med: 12.60 E' Laterial: 17.50 E/E' Lat: 5.30 Right Ventricle TAPSE (mm): 19.00 TVS' Charanjit: 10.00 Tricuspid Valve TR Pk Charanjit: 2.29 TR Pk Grad: 21.00 RA Press: 3.00 RVSP: 24.00 Great Vessels Aorta Ao Root-2D: 3.40 2.0-3.7 cm Pulmonary Valve PV Pk Charanjit: 1.17 Peak PV Grad: 5.00 Updated in Other Vendor System with Status of Final Misha Hernández MD electronically signed on 04/13/2023 2:05:55 PM with status of Final
--- NOTE | 2023-04-13 07:07 | PHA.MEDREC ---
Pharmacy Consult ? Medication Reconciliation Pharmacy has reviewed the medication reconciliation.
--- NOTE | 2023-04-13 07:12 | P.PNIM_ITS ---
Subjective Subjective Date of Service: 04/13/23 Interval History: seen in f/u for AFIB with RVR, depression with SI Interval history: remains in afib with rvr, chronic pain issues, and still endorses SI Physical Exam Vital Signs: Vital Signs: Last Vital Signs Temp 97.0 F 04/13/23 04:00 Pulse 105 H 04/13/23 04:00 Resp 20 04/13/23 04:00 BP 132/91 H 04/13/23 04:00 Pulse Ox 96 04/13/23 04:00 O2 Del Method Room Air 04/13/23 04:00 BMI result Body Mass Index 27.8 Const: Other: General: AO X 3, no acute distress Resp: CTA bilateral CVS: S1,S2,iregular iregular GI: +BS, NT, no distention Skin: No rash Neuro: motor grossly intact Psych: appropriate affect Objective Data Active Medications Acetaminophen (Acetaminophen 325 Mg Tablet) 650 mg PO Q6H PRN PRN Reason: Pain, Mild (Pain Scale 1-3) Last Admin: 04/13/23 02:14 Dose: 650 mg Documented By: MARYBETH Docusate Sodium (Docusate Sodium 100 Mg Capsule) 100 mg PO DAILY PRN PRN Reason: Constipation Enoxaparin Sodium (Enoxaparin Sodium 100 Mg/Ml Syringe) 95 mg SUBCUT Q12H [facility] Last Admin: 04/13/23 00:17 Dose: 95 mg Documented By: SANDEE Diltiazem HCl 125 mg/ Sodium (Chloride) 125 mls @ 0 mls/hr IVCONT .Q0M [place]; Protocol Last Titration: 04/13/23 05:12 Dose: 0 mg/hr, 0 mls/hr Documented By: MARYBETH Ondansetron HCl (Ondansetron Hcl 4 Mg/2 Ml Vial) 4 mg IVPUSH Q8H PRN PRN Reason: Nausea and Vomiting Last Admin: 04/13/23 00:21 Dose: 4 mg Documented By: SANDEE Pharmacy Consult (Consult Rx Perform Med Rec) 1 each MISCELLANE ONCE PRN PRN Reason: Consult order Sodium Chloride (0.9 % Sodium Chloride Flush 3 Ml Syringe) 3 ml IVFLUSH QSHIFT [facility] Last Admin: 04/13/23 00:17 Dose: 3 ml Documented By: SANDEE Labs 04/13/23 05:18 04/13/23 05:18 Labs: Laboratory Results - last 24 hr 04/12/23 04/12/23 04/12/23 21:02 21:02 21:02 MCV 84.4 MCH 28.9 MCHC 34.3 RDW 12.4 Plt Count 188 MPV 10.2 Immature Gran % (Auto) 0.1 Neut % (Auto) 49.4 Lymph % (Auto) 35.9 [place] % (Auto) 10.8 Eos % (Auto) 3.3 Baso % (Auto) 0.5 Lymph # (Auto) 2.8 [place] # (Auto) 0.9 Eos # (Auto) 0.3 Baso # (Auto) 0.0 Abs Immat Gran (auto) 0.01 Absolute Neuts (auto) 3.9 Absolute Nucleated RBC 0.000 Nucleated RBC % (auto) 0.0 PT INR APTT Anion Gap 15 Estim Creat Clear Calc 92.3 Estimated GFR > 60 Random Glucose 98 Calcium 9.9 Magnesium 2.1 Total Bilirubin 0.4 Direct Bilirubin 0.1 AST 27 ALT 22 Alkaline Phosphatase 80 Troponin I High Sens 4.7 Total Protein 8.2 H Albumin 4.4 Urine Opiates Screen Urine Fentanyl Screen Ur Barbiturates Screen Ur Phencyclidine Scrn Ur Amphetamines Screen U Benzodiazepines Scrn Urine Cocaine Screen U Marijuana (THC) Screen Ethyl Alcohol COVID-19 ([facility]) COVID-19 Clin Com 04/12/23 04/12/23 04/12/23 21:02 21:02 21:13 MCV MCH MCHC RDW Plt Count MPV Immature Gran % (Auto) Neut % (Auto) Lymph % (Auto) [place] % (Auto) Eos % (Auto) Baso % (Auto) Lymph # (Auto) [place] # (Auto) Eos # (Auto) Baso # (Auto) Abs Immat Gran (auto) Absolute Neuts (auto) Absolute Nucleated RBC Nucleated RBC % (auto) PT 11.4 INR 1.0 APTT 32.5 Anion Gap Estim Creat Clear Calc Estimated GFR Random Glucose Calcium Magnesium Total Bilirubin Direct Bilirubin AST ALT Alkaline Phosphatase Troponin I High Sens Total Protein Albumin Urine Opiates Screen Urine Fentanyl Screen Ur Barbiturates Screen Ur Phencyclidine Scrn Ur Amphetamines Screen U Benzodiazepines Scrn Urine Cocaine Screen U Marijuana (THC) Screen Ethyl Alcohol < 10 COVID-19 ([facility]) Negative COVID-19 Clin Com See Note 04/12/23 04/13/23 04/13/23 21:45 05:18 05:18 MCV 87.3 MCH 28.7 MCHC 32.9 RDW 12.6 Plt Count 170 MPV 10.7 Immature Gran % (Auto) 0.6 H Neut % (Auto) 44.2 L Lymph % (Auto) 40.3 H [place] % (Auto) 11.0 Eos % (Auto) 3.4 Baso % (Auto) 0.5 Lymph # (Auto) 3.5 [place] # (Auto) 1.0 Eos # (Auto) 0.3 Baso # (Auto) 0.0 Abs Immat Gran (auto) 0.05 H Absolute Neuts (auto) 3.9 Absolute Nucleated RBC 0.000 Nucleated RBC % (auto) 0.0 PT INR APTT Anion Gap 13 Estim Creat Clear Calc 83.4 Estimated GFR > 60 Random Glucose 123 H Calcium 9.7 Magnesium Total Bilirubin Direct Bilirubin AST ALT Alkaline Phosphatase Troponin I High Sens Total Protein Albumin Urine Opiates Screen Not Detected Urine Fentanyl Screen Not Detected Ur Barbiturates Screen Not Detected Ur Phencyclidine Scrn Not Detected Ur Amphetamines Screen Not Detected U Benzodiazepines Scrn Not Detected Urine Cocaine Screen Not Detected U Marijuana (THC) Screen Not Detected Ethyl Alcohol COVID-19 ([facility]) COVID-19 Clin Com Assessment and Plan (1) Atrial fibrillation with RVR: Status: Acute (2) Passive suicidal ideations: Status: Acute Plan 67-year-old male with history of hypertension, history of ventricular arrhythmia is s/p pacemaker/AICD, depression, chronic pain on oxycodone and methadone admitted for atrial fibrillation with RVR. #Atrial fibrillation with RVR--treated with IV cardizem starting from ED, rate is better now, start oral metoprolol and wean off IV cardizem. Will get echo and cardiology consult to guide us with management. On lovenox for stroke prevention but will change to Eliquis at next dose #Depression with passive SI, 1:1 observation, Psych consult for med manament and CARE to determine if will benefit from inpatient Psych when medically stable # chronic pain disorder -resume methadone, unclear why this was not being given at [facility] -continue oxycodone # hypertension-On Nifedipine, will change to Cardizem to also control HR DVT prophylaxis-therapeutic Lovenox DNR/DNI Need for inpatient: Ongoing management of atrial fibrillation with RVR, presnently on IV meds and further testing ongoing Time Spent With Patient Time: Total time managing care of this patient today ____ minutes. Quality Stroke Does the patient have a stroke diagnosis?: No VTE Prior VTE?: No VTE Risk Level:: Medical - moderate - high VTE Device Contraindication: Treatment Not Indicated VTE Drug Contraindication: N/A - Med Ordered
[2023-04-13] MEDS: cloNIDine HCL 0.2 MG TABLET PO ×3 (08:19→21:25)
[2023-04-13] MEDS: hydrOXYzine HCL 25 MG TABLET PO ×4 (08:20→21:25)
[2023-04-13] MEDS: lisinopriL 5 MG TABLET PO (08:20)
[2023-04-13] MEDS: Multivitamin TABLET 1 TAB PO (08:20)
[2023-04-13] MEDS: DULoxetine HCl 20 MG CAPSULE.DR PO ×2 (08:20→21:28)
--- NOTE | 2023-04-13 08:45 | MHC.CM.PN ---
CM met with Patient at bedside. Patient lives alone in an apartment at [facility] and home vs [facility] pending Psych eval r/t SI is the tentative plan. CM has initiated and will follow for dc planning. Patient has received Covid vax x3w and his PCP is Dr. Travis Mcarthur.Patient's Methadone is prescribed by his PCP; he does not obtain his Methadone from any particular Clinic.
[2023-04-13] MEDS: methADONE HCl 5 MG TABLET PO ×3 (09:16→21:25)
--- NOTE | 2023-04-13 11:06 | PM.CNCAR ---
History of Present Illness History of Present Illness Date of Service: 04/13/23 Requesting physician: [facility] Consult reason: atrial fibrillation Chief complaint: afib rvr, depression/ passive si Narrative: I was consulted to see Aaron in cardiology consultation today for management of atrial fibrillation. Patient came into the hospital because of psychiatric issue and had suicidal ideation was admitted and instantly noted to be in atrial fibrillation rapid ventricular response. He is a very poor historian. He says he has had a defibrillator placed 40 years ago which is unusual as defibrillator is a not available back then and was done for some current arrhythmias. He is not further able to elucidate. He said he has had defibrillator go off on him in the past 9 times. He is currently not following with any electrician bus or his primary care physician due to the fact that he is tired of living his life. He said he associates situation is poor and he keeps coming back to his social situation. He said he has had fluttering in the chest but not able to further elucidate. As to vascular they has rapid heart rate or palpitation he says no. He is not feeling any rapid irregular heartbeat or palpitations. Unclear as to the onset of atrial fibrillation but was noted to be in atrial fibrillation. Denies any chest pain, lightheadedness, shortness of breath, orthopnea, PND. His main complaint is diffuse pain. Review of Systems Constitutional: Constitutional: Denies body ache(s), Denies chills, Denies fatigue, Denies fever(s), Denies frequent falls and Reports other (Diffuse pain) Eyes: Eyes: Reports no additional eye complaints Cardiovascular: Cardiovascular: Denies chest pain, Denies leg edema, Denies lightheadedness, Denies Loss of Consciousness, Denies palpitations, Denies dyspnea and Reports other (Occasional fluttering) Respiratory: Respiratory: Reports no additional respiratory complaints and Denies dyspnea Musculoskeletal: Musculoskeletal: Reports no additional musculoskeletal complaints Integumentary/Breasts: Skin/Breast: Reports system reviewed and no additional complaints, except as docu Neurologic: Reports system reviewed and no additional complaints, except as documented and Denies frequent falls Psychiatric: Psychiatric: Reports no additional psychiatric complaints Endocrine: Endocrine: Reports no additional endocrine complaints, Denies fatigue and Denies palpitations Hematologic/Lymphatic: Hematologic/Lymphatic: Reports no additional hematologic/lymphatic complaints Allergic/Immunologic: Allergic/Immunologic: Reports no additional allergic/immunologic complaints PMFSH Past Medical History Medical History Cervical disc herniation History of intravenous drug abuse HTN (hypertension) Lumbar disc herniation Opioid abuse Opioid dependence Pacemaker Presence of combination internal cardiac defibrillator (ICD) and pacemaker Thoracic disc herniation Ventricular arrhythmia Family History Family History Mother HTN (hypertension) CHF (congestive heart failure) Surgical History Surgical History History of hip replacement History of spinal fusion Social History Social History Household Members: Other Household Members Other:: lives in a rooming home, no family just other tenants Housing: Apartment Do you presently have visiting nurse or other home services: No Alcohol intake: former Patient Tobacco Use Status: Never used Tobacco Second Hand Smoke Exposure: No Substance Use Type: Heroin service: No Current occupational status: retired and disabled Sexual orientation: Straight/Heterosexual Meds Allergies Allergy/AdvReac Type Severity Reaction Status Date / Time ergotamine [ERGOTAMINE] AdvReac Severe NAUSEA Verified 04/12/23 20:41 Active Medications: Current Medications Acetaminophen (Acetaminophen 325 Mg Tablet) 650 mg PO Q6H PRN PRN Reason: Pain, Mild (Pain Scale 1-3) Last Admin: 04/13/23 08:25 Dose: 650 mg Acetaminophen (Acetaminophen 325 Mg Tablet) 650 mg PO Q6H PRN PRN Reason: Headache/Pain Mild Scale (1-3) Clonidine HCl (Clonidine Hcl 0.2 Mg Tablet) 0.2 mg PO TID FOR[facility]LY [facility], [facility]1983; Protocol Last Admin: 04/13/23 08:19 Dose: 0.2 mg Docusate Sodium (Docusate Sodium 100 Mg Capsule) 100 mg PO DAILY PRN PRN Reason: Constipation Duloxetine HCl (Duloxetine Hcl 20 Mg Capsule.Dr) 20 mg PO BID FOR[facility]LY [facility], 1928–1983 Last Admin: 04/13/23 08:20 Dose: 20 mg Enoxaparin Sodium (Enoxaparin Sodium 100 Mg/Ml Syringe) 95 mg SUBCUT Q12H [place] Last Admin: 04/13/23 00:17 Dose: 95 mg Hydroxyzine HCl (Hydroxyzine Hcl 25 Mg Tablet) 25 mg PO QID FOR[facility]LY [facility], [facility]1983 Last Admin: 04/13/23 08:20 Dose: 25 mg Diltiazem HCl 125 mg/ Sodium (Chloride) 125 mls @ 0 mls/hr IVCONT .Q0M FORMERLY [facility], [facility]–1983; Protocol Last Titration: 04/13/23 08:22 Dose: 10 mg/hr, 10 mls/hr Lisinopril (Lisinopril 5 Mg Tablet) 5 mg PO DAILY [facility]LY [facility], [facility]1983; Protocol Last Admin: 04/13/23 08:20 Dose: 5 mg Methadone HCl (Methadone Hcl 5 Mg Tablet) 5 mg PO TID PRN PRN Reason: Pain (Scale Score 4-6) Last Admin: 04/13/23 09:16 Dose: 5 mg Multivitamins/Vitamin C (Multivitamin Tablet) 1 tab PO DAILY FOR[facility]LY [facility], [facility] Last Admin: 04/13/23 08:20 Dose: 1 tab Ondansetron HCl (Ondansetron Hcl 4 Mg/2 Ml Vial) 4 mg IVPUSH Q8H PRN PRN Reason: Nausea and Vomiting Last Admin: 04/13/23 00:21 Dose: 4 mg Pharmacy Consult (Consult Rx Perform Med Rec) 1 each MISCELLANE ONCE PRN PRN Reason: Consult order Sodium Chloride (0.9 % Sodium Chloride Flush 3 Ml Syringe) 3 ml IVFLUSH QSHIFT FOR[facility], [facility] Last Admin: 04/13/23 08:22 Dose: Not Given Trazodone HCl (Trazodone Hcl 50 Mg Tablet) 50 mg PO BEDTIME FOR[facility]LY [facility], [facility] Home Medications Medication Instructions Recorded Confirmed Last Taken Type methadone 5 mg tablet 5 mg PO TID PRN Pain (Scale Score 10/21/22 04/12/23 Unknown History 4-6) oxycodone 10 mg tablet 1 tab PO BID PRN Pain 10/21/22 04/12/23 Unknown History clonidine HCl 0.2 mg tablet 0.2 mg PO TID 04/12/23 04/12/23 Unknown History Physical Exam Vital Signs: Vital Signs: Last Vital Signs Temp 98.2 F 04/13/23 08:00 Pulse 75 04/13/23 10:47 Resp 18 04/13/23 08:00 BP 128/86 04/13/23 08:00 Pulse Ox 96 04/13/23 08:00 O2 Del Method Room Air 04/13/23 08:00 BMI result Body Mass Index 27.8 Const: General: cooperative, comfortable, no acute distress, alert and awake Nutritional Appearance: overweight Orientation/consciousness: patient oriented x3 HEENT: Head: Yes normocephalic and Yes atraumatic Neck: Neck: Yes trachea midline, Yes supple and Yes no JVD Resp: Effort & Inspection: normal respiratory effort Auscultation: clear to auscultation bilaterally Cardio: Jugular venous distension: no JVD Rhythm: abnormal rhythm irregularly irregular Heart sounds: S1 normal heart sound present, S2 normal heart sound present, no click, no gallops and no murmurs GI: Auscultation: normal bowel sounds Skin: General skin exam: no rashes or lesions noted Neuro: General: patient oriented x3 and no focal motor deficits Extrem: General: Yes no clubbing, cyanosis or edema Objective Labs and Meds 04/13/23 05:18 04/13/23 05:18 Lab results: Laboratory Results - last 24 hr 04/12/23 04/12/23 04/12/23 21:02 21:02 21:02 WBC 7.9 RBC 5.01 Hgb 14.5 Hct 42.3 MCV 84.4 MCH 28.9 MCHC 34.3 RDW 12.4 Plt Count 188 MPV 10.2 Immature Gran % (Auto) 0.1 Neut % (Auto) 49.4 Lymph % (Auto) 35.9 [place] % (Auto) 10.8 Eos % (Auto) 3.3 Baso % (Auto) 0.5 Lymph # (Auto) 2.8 [place] # (Auto) 0.9 Eos # (Auto) 0.3 Baso # (Auto) 0.0 Abs Immat Gran (auto) 0.01 Absolute Neuts (auto) 3.9 Absolute Nucleated RBC 0.000 Nucleated RBC % (auto) 0.0 PT INR APTT Sodium 141 Potassium 3.6 D Chloride 110 H Carbon Dioxide 20 L Anion Gap 15 BUN 10 Creatinine 0.84 Estim Creat Clear Calc 92.3 Estimated GFR > 60 Random Glucose 98 Calcium 9.9 Magnesium 2.1 Total Bilirubin 0.4 Direct Bilirubin 0.1 AST 27 ALT 22 Alkaline Phosphatase 80 Troponin I High Sens 4.7 Total Protein 8.2 H Albumin 4.4 Urine Opiates Screen Urine Fentanyl Screen Ur Barbiturates Screen Ur Phencyclidine Scrn Ur Amphetamines Screen U Benzodiazepines Scrn Urine Cocaine Screen U Marijuana (THC) Screen Ethyl Alcohol COVID-19 ([facility]) COVID-19 [email or web address] Com 04/12/23 04/12/23 04/12/23 21:02 21:02 21:13 WBC RBC Hgb Hct MCV MCH MCHC RDW Plt Count MPV Immature Gran % (Auto) Neut % (Auto) Lymph % (Auto) [place] % (Auto) Eos % (Auto) Baso % (Auto) Lymph # (Auto) [place] # (Auto) Eos # (Auto) Baso # (Auto) Abs Immat Gran (auto) Absolute Neuts (auto) Absolute Nucleated RBC Nucleated RBC % (auto) PT 11.4 INR 1.0 APTT 32.5 Sodium Potassium Chloride Carbon Dioxide Anion Gap BUN Creatinine Estim Creat Clear Calc Estimated GFR Random Glucose Calcium Magnesium Total Bilirubin Direct Bilirubin AST ALT Alkaline Phosphatase Troponin I High Sens Total Protein Albumin Urine Opiates Screen Urine Fentanyl Screen Ur Barbiturates Screen Ur Phencyclidine Scrn Ur Amphetamines Screen U Benzodiazepines Scrn Urine Cocaine Screen U Marijuana (THC) Screen Ethyl Alcohol < 10 COVID-19 ([facility]) Negative COVID-19 [email or web address] Com See Note 04/12/23 04/13/23 04/13/23 21:45 05:18 05:18 WBC 8.8 RBC 4.74 Hgb 13.6 L Hct 41.4 L MCV 87.3 MCH 28.7 MCHC 32.9 RDW 12.6 Plt Count 170 MPV 10.7 Immature Gran % (Auto) 0.6 H Neut % (Auto) 44.2 L Lymph % (Auto) 40.3 H [place] % (Auto) 11.0 Eos % (Auto) 3.4 Baso % (Auto) 0.5 Lymph # (Auto) 3.5 [place] # (Auto) 1.0 Eos # (Auto) 0.3 Baso # (Auto) 0.0 Abs Immat Gran (auto) 0.05 H Absolute Neuts (auto) 3.9 Absolute Nucleated RBC 0.000 Nucleated RBC % (auto) 0.0 PT INR APTT Sodium 144 Potassium 5.5 H D Chloride 111 H Carbon Dioxide 26 Anion Gap 13 BUN 10 Creatinine 0.93 Estim Creat Clear Calc 83.4 Estimated GFR > 60 Random Glucose 123 H Calcium 9.7 Magnesium Total Bilirubin Direct Bilirubin AST ALT Alkaline Phosphatase Troponin I High Sens Total Protein Albumin Urine Opiates Screen Not Detected Urine Fentanyl Screen Not Detected Ur Barbiturates Screen Not Detected Ur Phencyclidine Scrn Not Detected Ur Amphetamines Screen Not Detected U Benzodiazepines Scrn Not Detected Urine Cocaine Screen Not Detected U Marijuana (THC) Screen Not Detected Ethyl Alcohol COVID-19 ([facility]) COVID-19 Clin Com EKG shows atrial fibrillation rapid ventricular response with PVC with diffuse ST T wave changes, most likely rate-related ischemia Imaging Radiologist's impression: Impressions Chest X-Ray 04/12/23 21:50 IMPRESSION: No acute disease. Assessment and Plan (1) Atrial fibrillation with RVR: Status: Acute New onset atrial fibrillation rapid ventricular response without any obvious symptoms or signs of cardiac decompensation. Rate is controlled with IV Cardizem. Onset of atrial fibrillation is unclear. Can check device and see if he can figure out exact onset of his atrial fibrillation. However given lack of symptoms, will pursue rate control approach. Discussed with him about atrial fibrillation although he was not focusing on cardiac arrhythmias at all and was more focusing on his psychosocial issues. For now will switch him on metoprolol 25 mg q.6 hours and gradually taper IV Cardizem. Also start him on oral anticoagulation with Xarelto given his CHADSVASc score of 2. Need for oral anticoagulation therapy was discussed with him, not sure if he comprehends completely. Continue aggressive control blood pressure at this point time. (2) ICD (implantable cardioverter-defibrillator) in place: Status: Acute [employer] ICD in place for prior ventricular arrhythmia. Unknown LV systolic function. Will obtain echocardiogram. Will also have device check perform later today by the company sales representative advertising. He is device is not been check for many years. Advised him for compliance with his cardiology follow-up. He said he has not been interested in the past due to psychosocial issues. Will follow up with him Time Spent With Patient Time: Total time managing care of this patient today ____ minutes. Procedures Date of Service Date of Service: 04/13/23
--- NOTE | 2023-04-13 12:35 | MHC.CM.PN ---
CM met with Patient at bedside and addressed IMM with him; original was given to him and a copy has been placed on the chart.
[2023-04-13] MEDS: dilTIAZem HCL 125 MG in 0.9 % Sodium Chloride 100 ML 10 MG IVCONT (17:27)
[2023-04-13] MEDS: traZODone HCL 50 MG TABLET PO (21:25)
[2023-04-14 04:00] VITALS: BP 127/73; PULSE 85; RESP 18; TEMP 36.5; O2SAT 97
[2023-04-14 08:00] VITALS: BP 122/70; PULSE 75; RESP 18; TEMP 36.8; O2SAT 96
[2023-04-14] MEDS: Acetaminophen 325 MG TABLET 650 MG PO ×2 (08:09→14:08)
[2023-04-14] MEDS: lisinopriL 5 MG TABLET PO (08:09)
[2023-04-14] MEDS: hydrOXYzine HCL 25 MG TABLET PO ×2 (08:09→12:59)
[2023-04-14] MEDS: cloNIDine HCL 0.2 MG TABLET PO ×2 (08:11→14:09)
[2023-04-14] MEDS: Multivitamin TABLET 1 TAB PO (08:13)
[2023-04-14] MEDS: DULoxetine HCl 20 MG CAPSULE.DR PO (08:13)
[2023-04-14] MEDS: methADONE HCl 5 MG TABLET PO ×2 (08:14→14:09)
[2023-04-14] MEDS: Metoprolol Tartrate 25 MG TABLET PO (08:57)
--- NOTE | 2023-04-14 09:54 | MHC.CM.PN ---
Per MD, Patient is medically cleared for dc and needs Psych Eval to assist with disposition r/t SI. CM will follow.
--- NOTE | 2023-04-14 10:16 | P.PNCA_ITS ---
Subjective Subjective Date of Service: 04/14/23 Principal diagnosis: Paroxysmal atrial fibrillation. Interval history: Patient converted back to sinus rhythm with rate control. No symptoms reported. ICD checked yesterday working well. Has had prior episodes of paroxysmal atrial fibrillation. Review of Systems Review of Systems Yes all other systems are reviewed and are negative Physical Exam Vital Signs: Last Vital Signs Temp 97.7 F 04/14/23 04:00 Pulse 85 04/14/23 04:00 Resp 18 04/14/23 04:00 BP 127/73 04/14/23 04:00 Pulse Ox 97 04/14/23 04:00 O2 Del Method Room Air 04/14/23 04:00 BMI result Body Mass Index 27.8 Const General: cooperative, comfortable, no acute distress, alert and awake Nutritional Appearance: overweight Orientation/consciousness: patient oriented x3 Neck Neck: Yes trachea midline, Yes supple and Yes no JVD Resp Effort & Inspection: normal respiratory effort Auscultation: clear to auscultation bilaterally Cardio Jugular venous distension: no JVD Rhythm: abnormal rhythm irregularly irregular Heart sounds: S1 normal heart sound present, S2 normal heart sound present, no click, no gallops and no murmurs GI Auscultation: normal bowel sounds Skin General skin exam: no rashes or lesions noted Neuro General: patient oriented x3 and no focal motor deficits Extrem General: Yes no clubbing, cyanosis or edema Objective Labs and Meds 04/13/23 05:18 04/13/23 05:18 Progress Note: A&P Assessment and plan (1) Paroxysmal atrial fibrillation: Status: Acute Assessment and Plan: Paroxysmal atrial fibrillation converted to sinus rhythm. Switch to p.o. metoprolol 50 mg b.i.d.. Also agree with Xarelto 20 mg daily for risk reduction for stroke. This was discussed with the patient. Avoidance of stimulants was discussed. Can follow incidence of atrial fibrillation with his device in the future. I would hold off on starting on antiarrhythmic drug therapy at this point time unless he has progressively increasing burden of atrial fibrillation that is symptomatic. This is difficult to determine in this patient. He should follow-up with his own automobile service station attendant. (2) ICD (implantable cardioverter-defibrillator) in place: Status: Acute Assessment and Plan: Prior ICD in place for ventricular arrhythmias. Noted to have PVCs otherwise no significant ventricular arrhythmias. ICD is working well. Advised to follow with his automobile service station attendant. Will sign of the case. Thank you for allowing me to partake in his care Time Spent With Patient Time: Total time managing care of this patient today ____ minutes. Progress Note: Quality Stroke Does the patient have a stroke diagnosis?: No Procedures Date of Service Date of Service: 04/14/23
[2023-04-14] MEDS: Enoxaparin Sodium 100 MG/ML SYRINGE 95 MG SUBCUT (12:58)
--- NOTE | 2023-04-14 13:48 | MHC.CARE ---
CARE Team called [facility] to advise them that pt has been cleared and would be returning home.? [facility] staff advised CARE Team before the message could be delivered that they would have management contact the CARE Team.
--- NOTE | 2023-04-14 14:24 | MHC.CARE ---
CARE Team sopoke with management at [facility] and they are aware he has been seen by CARE and cleared.? He may need a ride back to the facility.
--- NOTE | 2023-04-14 14:36 | MHC.CM.PN ---
Per , Psych has cleared Patient for dc to home. Per MD, Patient is medically cleared for dc today, to return to [facility]. Per , has spoken to [facility], who is aware of Patient's return today. Patient will return to [facility] via [facility] [place]. Last IMM addressed on 04/13/2023.
--- NOTE | 2023-04-14 14:49 | PM.DS ---
DS: Providers Provider Date of Service: 04/14/23 Date of admission: 04/12/23 22:07 Date of discharge: 04/14/23 Primary care physician: Nick Zarate PA-C Consults: 04/12/23 22:06 Consult to Care Team Routine Comment: Reason for consultation: passive suicidality, depression Consult to Psychiatry Routine Consulting Provider: Psych Covering Reason for consultation: depression, passive SI 04/12/23 22:11 Consult to Cardiology Routine Consulting Provider: [facility] Reason for consultation: afib rvr 04/12/23 22:12 Consult for Sitter Routine Reason for consultation: passive si 04/13/23 01:22 Consult to Care Team Routine Comment: Reason for consultation: SI thoughts at imes, makes vague comments, no plan Has provider been notified: Yes Attending physician on discharge: Arcadio Fletcher Discharging clinician: Arcadio Fletcher DS: Diagnosis Discharge Diagnosis (1) Paroxysmal atrial fibrillation: Status: Acute (2) ICD (implantable cardioverter-defibrillator) in place: Status: Acute DS: Summary Hospital Course Hospital Course: 67-year-old male with history of hypertension, history of ventricular arrhythmia is s/p pacemaker/AICD, depression, chronic pain on oxycodone and methadone [facility] with increased depression and SI per ED provider as well as uncontrolled pain as he has not received his methadone doses in 4-5 days.? Per ED provider he has made statements of hopelessness and stated to the nurse that ?if I had a gun, I would kill myself?.? On my exam, patient is adamant that he has no active intent to commit suicide and states his worsening depression stems from living in a [facility] and having chronic pain.? However, he did make statement that ?now UC why I want to kill myself?.? He states he has been seen by multiple cardiologists including those at the [facility] for ventricular arrhythmia is and has question of atrial fibrillation though he is not certain of this.? He is not on anticoagulation at this time.? He does endorse a fluttering sensation in his chest feels skipped beats occasionally but denies any shortness of breath, lightheadedness, or chest pain.? He denies any recent illness.? No fevers or chills, abdominal pain, nausea, vomiting, urinary symptoms, diarrhea.? He does endorse drinking significant caffeine throughout the day up to 4-5 caffeinated beverages daily. On arrival, patient tachycardic to 144, vitals otherwise stable, no hypotension.? He was given 10 mg IV diltiazem with improvement in heart rate to 97.? However, on my examination, heart rate has returned to 120-135.? There is no leukocytosis or anemia.? Renal function normal, electrolyte levels unremarkable.? Troponin 4.7.? Urine tox screen negative.? Chest x-ray negative for any acute cardiopulmonary disease.? EKG shows atrial fibrillation with RVR and PVCs or aberrantly conducted complexes, rate [address]/T-wave abnormality, no ENA pr depressions. In addition to the diltiazem, patient also received 1 L IV NS. Hospital course: Patient came with A. fibrillation-started on IV Cardizem as well as anticoagulation for stroke risk control,Patient heart rate seems to be improved. In addition patient was seen by Cardiology recommended continue metoprolol, also patient ICD was reviewed by Cardiology seems to be fine. Patient will be discharged going metoprolol 50 b.i.d. and Xarelto 20 daily. switched to p.o. metoprolol upon discharge. Since patient blood pressure medication regimen metoprolol is added, we will hold nifedipine for now-monitor blood pressure out patiently if needed consider adding nifedipine back. Follow-up with outpatient cardiology. In addition patient had depression/suicidal ideation: Seen by care team , cleared for discharge. plan: please continue metoprolol 50 b.i.d. and Xarelto 20 daily.we will hold nifedipine for now-monitor blood pressure out patiently if needed consider adding nifedipine back. Follow-up with outpatient Cardiology. Above management discussed the patient in detail length she understand and in agreement with the plan, time spent 50 minute. Time Spent with Patient Time attestation: Total time managing care of this patient today ____ minutes. Discharge coordination time: Greater than 30 minutes Quality: Safe Use of Opioids Does Pt have an Active Cancer Diagnosis on the Problem List?: No Quality: Stroke Does the patient have a stroke diagnosis?: No Physical Exam Vital Signs: Vital Signs: Last Vital Signs Temp 98.2 F 04/14/23 08:00 Pulse 75 04/14/23 08:00 Resp 18 04/14/23 08:00 BP 122/70 04/14/23 08:00 Pulse Ox 96 04/14/23 08:00 O2 Del Method Room Air 04/14/23 08:00 BMI result Body Mass Index 27.8 General: AO X 3, no acute distress Resp:? CTA bilateral CVS: S1,S2,iregular iregular GI: +BS, NT, no distention Skin: No rash Neuro:? motor grossly intact Psych: appropriate affect DS: Data Imaging Chest x-ray: Radiologist's impression: ITS Impressions Chest X-Ray 04/12/23 21:50 IMPRESSION: No acute disease. Discharge Plan Discharge Anticipated Discharge Date/Time: 04/14/23 14:35 Patient Disposition: Home, Self-Care Discharge Diagnosis: afib ,depression Referrals: Nick Zarate PA-C [Primary Care Provider] - 1 Week Discharge Medications: New Xarelto 20 mg tablet 20 mg PO DAILY Qty: 30 0RF Rx Instructions: must administer with evening meal metoprolol tartrate 50 mg Tablet 50 mg PO BID Qty: 60 0RF Protocol: Hold for SBP/HR < HOLD for SBP < : 90 HOLD for HR < : 60 Continued methadone 5 mg tablet 5 mg PO TID PRN (Reason: Pain (Scale Score 4-6)) oxycodone 10 mg tablet 1 tab PO BID PRN (Reason: Pain) acetaminophen 325 mg Tablet 650 mg PO Q6H PRN (Reason: Headache/Pain Mild Scale (1-3)) Qty: 0 0RF trazodone 50 mg tablet 1 tab PO BEDTIME Qty: 30 0RF lisinopril 5 mg tablet 1 tab PO DAILY Qty: 30 0RF duloxetine [Cymbalta] 20 mg capsule,delayed release(DR/EC) 20 mg PO BID Qty: 60 0RF multivitamin with minerals Capsule 1 cap PO DAILY Qty: 30 0RF hydroxyzine HCl 25 mg tablet 25 mg PO QID Qty: 120 0RF clonidine HCl 0.2 mg tablet 0.2 mg PO TID Held nifedipine 90 mg tablet extended release 24hr 1 tab PO DAILY Qty: 30 0RF Hold Instructions: Resume on 04/28/23. hold and moniter blood pressure ,if consistently elevated consider adding nifedipine back. Discharge Orders: Discharge Order (Routine); Ordered 04/14/23 Ordered By: Arcadio Fletcher Diet: Advance to usual diet Activity on Discharge: As tolerated Stand Alone Forms: Patient Portal Discharge page Care Plan Goals: Patient came with A. fibrillation-started on IV Cardizem as well as anticoagulation for stroke risk control. Patient heart rate seems to be improved, switched to p.o. metoprolol upon discharge. In addition patient was seen by Cardiology recommended continue metoprolol, also patient ICD was reviewed by Cardiology seems to be fine. Patient will be discharged going metoprolol 50 b.i.d. and Xarelto 20 daily. Since patient blood pressure medication regimen metoprolol is added, we will hold nifedipine for now-monitor blood pressure out patiently if needed consider adding nifedipine back. Follow-up with outpatient cardiology. In addition patient had depression/suicidal ideation: Seen by care team , cleared for discharge. Health Concerns: As above. Plan of Treatment: As above. Assessment: As above.
--- NOTE | 2023-04-15 11:00 | P.CDIM_ITS ---
PROVIDER RESPONSE TEXT: To clarify, the appropriate diagnosis supported by the clinical indicators: Hyperkalemia QUERY TEXT: PHYSICIAN'S DOCUMENTATION REQUEST Date of Query: 04/13/2023 12:14 PM EDT Patient Name: Aaron Hernandes Admit Date: 04/13/2023 Dear Gigi Vazquez, A review of the medical record indicates additional documentation may be needed. Please review below and update the documentation accordingly. Clinical Indicators: LAB FINDINGS: Potassium 5.5 H Based on the above, is there a diagnosis that correlates with the above lab findings: Hyperkalemia Labs indicate a diagnosis of (please specify) Other Other (explain)Clinically unable to determine (explain)Thank you, Aliyah Alexandre, CCS, CDIS Use of terms such as suspected, likely, concern for, or probable (associated with a specific diagnosi s that is being evaluated, monitored, or treated as if it exists) are acceptable and can be coded in the inpatient se tting, when documented at the time of discharge. Please use your independent medical judgment in providing your response. THIS QUERY IS PART OF THE PERMANENT MEDICAL RECORD
== END 2023-04-14 14:50 | disposition home or self-care (01) | DRG 309 ==
LOC: HO.ED 21:24 → HO.EDOVER 22:14 → HO.IMC 04-13 00:01
PROVIDERS: Admitting Provider Physician Assistant; Emergency Provider Internal Medicine; PCP Physician Assistant; Visit Provider Internal Medicine
DX: I48.0 Paroxysmal atrial fibrillation (principal); F11.20 Opioid dependence, uncomplicated; I13.0 Hypertensive heart and chronic kidney disease with heart failure and stage 1 through stage 4 chronic kidney disease, or unspecified chronic kidney disease; R45.851 Suicidal ideations; N18.2 Chronic kidney disease, stage 2 (mild); E11.65 Type 2 diabetes mellitus with hyperglycemia; E87.5 Hyperkalemia; E11.22 Type 2 diabetes mellitus with diabetic chronic kidney disease; Z66 Do not resuscitate; Z45.02 Encounter for adjustment and management of automatic implantable cardiac defibrillator; G89.29 Other chronic pain; F32.A Depression, unspecified; Z20.822 Contact with and (suspected) exposure to COVID-19; Z98.1 Arthrodesis status; Z79.899 Other long term (current) drug therapy
CPT/HCPCS: 36415; 71045; 80048; 80076; 80307; 83735; 84484; 85025; 85610; 85730; 87635; 93005; 93306; 99285; J1650; J2405; Q9957; S9485

== ENCOUNTER 2023-07-18 22:49 | Emergency (ER) | payer MEDICARE, OTHER, SELFPAY ==
--- NOTE | ~2023-07-18 | XR_ITS ---
EXAMINATION: XR CHEST CLINICAL INFORMATION: Shortness of breath. COMPARISON: Chest radiograph done on 04/12/2023. TECHNIQUE: Frontal view of the chest was obtained. FINDINGS: Hyperinflated clear lung acevedo is seen bilaterally. Cardiomediastinal silhouette is narrow and tubular. Left pectoral subclavian AICD device with intact leads. No evidence of any pleural effusion or pneumothorax. Prominent bowel gas is noted usually within the partially included infradiaphragmatic region however, appear less pronounced as compared to the prior study dated 04/12/2023. Overall no significant change. XR/XR chest 1V IMPRESSION: The findings are consistent with obstructing airway disease, similar to prior study.
--- NOTE | ~2023-07-18 | XR_ITS ---
EXAMINATION: XR ABDOMEN KUB CLINICAL INDICATION: Nausea and vomiting. COMPARISON: None available. TECHNIQUE: AP view of the abdomen. FINDINGS: There is gas and stool throughout large bowel loops with gaseous distention of large bowel loops. The overall bowel gas pattern is nonspecific. No abnormal calcifications are noted. The bony structures and soft tissues are unremarkable. XR/XR abdomen 1V IMPRESSION: Stool and gas throughout mildly distended large bowel loops. Overall nonspecific bowel gas pattern.
[2023-07-18 22:51] VITALS: BP 136/92; PULSE 60
[2023-07-18 23:09] VITALS: BP 143/85; PULSE 76; RESP 16; TEMP 37.1; O2SAT 96; BMI 27.1
--- NOTE | 2023-07-18 23:12 | ECG_ITS ---
Test Reason : DYSPNEA Blood Pressure : / mmHG Vent. Rate : 074 BPM Atrial Rate : 000 BPM P-R Int : 000 ms QRS Dur : 082 ms QT Int : 428 ms P-R-T Axes : 000 044 048 degrees QTc Int : 475 ms Atrial-paced rhythm with occasional Premature ventricular complexes Septal infarct (cited on or before 20-JUL-2014) Abnormal ECG When compared with ECG of 12-APR-2023 20:48, Atrial-paced rhythm has replaced Atrial fibrillation Vent. rate has decreased BY [address] no longer depressed in Lateral leads T wave inversion no longer evident in Lateral leads Referred By: Generic ED Physician Electronically Signed By:JANET MATUTE
[2023-07-18 23:40] LABS: MANUAL DIFF FLAG NO
[2023-07-18 23:44] LABS: Basophils Absolute Auto 0.1 X10*3/uL (0.0-0.2); Basophils Percent Auto 0.6 % (0-2); Eosinophils Absolute Auto 0.4 X10*3/uL (0.0-0.4); Eosinophils Percent Auto 4.8 % (0-4); Hematocrit 40.5 % (42.0-52.0); Hemoglobin 13.3 g/dl (14.0-18.0); Imm Gran Abs Auto 0.03 X10*3/uL (0.00-0.03); Imm Gran Pct Auto 0.4 % (0.0-0.4); Lymphocytes Absolute Auto 2.5 X10*3/uL (1.2-4.9); Lymphocytes Percent Auto 29.1 % (20-40); Mean Corpuscular HGB Conc 32.8 g/dl (31.0-36.0); Mean Corpuscular Hemoglobin 28.5 pg (27.0-33.0); Mean Corpuscular Volume 86.9 fL (80.0-98.0); Monocytes Absolute Auto 0.7 X10*3/uL (0.1-1.2); Monocytes Percent Auto 8.6 % (2-11); Neutrophils Absolute Auto 4.8 x10*3/uL (2.0-8.3); Neutrophils Percent Auto 56.5 % (45-73); Platelet Count 219 X10*3/uL (160-400); Red Blood Count 4.66 X10*6/uL (4.60-5.80); Red Cell Distribution Width 13.2 % (11.0-16.0); White Blood Count 8.5 X10*3/uL (4.8-10.8)
[2023-07-18 23:57] LABS: Alanine Aminotransferase 11 U/L (0-40); Albumin Level 3.8 g/dL (3.5-5.0); Alkaline Phosphatase 71 U/L (39-117); Anion Gap 10 (12-20); Aspartate Amino Transferase 20 U/L (5-37); Bilirubin Direct < 0.2 mg/dL (0.0-0.5); Bilirubin Total 0.2 mg/dL (0.0-1.0); Blood Urea Nitrogen 14 mg/dL (9-16); Calcium 9.8 mg/dL (8.4-10.2); Carbon Dioxide 28 mmol/L (22-29); Chloride 108 mmol/L (96-108); Estimated Glomerular Filt Rate > 60; Glucose Random 88 mg/dL (60-115); Potassium 4.2 mmol/L (3.3-5.1); Sodium 142 mmol/L (135-145); Total Protein 7.5 g/dL (6.5-8.0)
[2023-07-19 00:05] LABS: Troponin-I High Sensitivity < 2.7 ng/L (<3.5-35.0)
--- NOTE | 2023-07-19 00:45 | MHC.EDTECH ---
patient is frustrated that he has not been seen by a doctor yet and wants to leave AMA/Elope.
--- NOTE | 2023-07-19 02:08 | ED.SOB ---
HPI - SOB/Dyspnea General Chief Complaint: Dyspnea Stated Complaint: SOB 2HOURS Time Seen by Provider: 07/19/23 02:00 Source: patient Mode of arrival: EMS Limitations: no limitations History of Present Illness HPI Narrative: 68-year-old male who was sent to the emergency department from his assisted living facility for evaluation of shortness of breath x2 hours. Patient states that he has not been feeling well for the past 2 days. He states his abdomen is very bloated in any time he eats he feels full and this causes him to vomit. He states that he has been constipated be did have a bowel movement today. He states that he has had a problem with constipation all of his life. He denied fever, chills, chest pain, dyspnea on exertion, cough. Related Data Home Medications Medication Instructions Recorded Confirmed methadone 5 mg tablet 5 mg PO TID PRN Pain (Scale Score 10/21/22 04/12/23 4-6) oxycodone 10 mg tablet 1 tab PO BID PRN Pain 10/21/22 04/12/23 clonidine HCl 0.2 mg tablet 0.2 mg PO TID 04/12/23 04/12/23 Previous Rx's Medication Instructions Recorded acetaminophen 325 mg tablet 650 mg (2 x 325 mg) PO Q6H PRN 10/28/22 Headache/Pain Mild Scale (1-3) #0 tabs lisinopril 5 mg tablet 1 tab PO DAILY #30 tabs 10/28/22 nifedipine 90 mg tablet,extended 1 tab PO DAILY #30 tabs 10/28/22 release 24 hr trazodone 50 mg tablet 1 tab PO BEDTIME #30 tabs 10/28/22 duloxetine 20 mg capsule,delayed 20 mg PO BID #60 caps 12/24/22 release (Cymbalta) multivitamin with minerals 1 cap PO DAILY #30 caps 12/31/22 hydroxyzine HCl 25 mg tablet 25 mg PO QID #120 tabs 01/15/23 metoprolol tartrate 50 mg tablet 50 mg PO BID #60 tabs 04/14/23 rivaroxaban 20 mg tablet (Xarelto) 20 mg PO DAILY #30 tabs 04/14/23 docusate sodium 100 mg capsule 100 mg PO BID 30 days #60 caps 07/19/23 (Colace) polyethylene glycol 3350 17 17 g PO DAILY 30 days #510 grams 07/19/23 gram/dose oral powder (Miralax) sennosides 17.2 mg tablet (Senokot 17.2 mg PO BID PRN constipation 07/19/23 Extra Strength) #30 tabs Allergies Allergy/AdvReac Type Severity Reaction Status Date / Time ergotamine [ERGOTAMINE] AdvReac Severe NAUSEA Verified 04/12/23 20:41 Review of Systems Review of Systems: Yes all other systems are reviewed and are negative [facility] Past Medical History [facility] Narrative: Social history: He lives in assisted living program, he denies tobacco, alcohol and drug use. Medical History History of intravenous drug abuse Presence of combination internal cardiac defibrillator (ICD) and pacemaker Ventricular arrhythmia Opioid dependence Lumbar disc herniation Thoracic disc herniation Cervical disc herniation Opioid abuse Pacemaker HTN (hypertension) Surgical History History of spinal fusion History of hip replacement Family History Family History Mother HTN (hypertension) CHF (congestive heart failure) Social History Social History Household Members: Other Household Members Other:: lives in a rooming home, no family just other tenants Housing: Apartment Do you presently have visiting nurse or other home services: No Alcohol intake: never Patient Tobacco Use Status: Never used Tobacco Smoked in Last 30 Days: No Second Hand Smoke Exposure: No Use of substances other than those prescribed or required for medical reasons: No Substance Use Type: Heroin Advance Directives: No Advance Directives Information Provided: Yes service: No Current occupational status: retired and disabled Sexual orientation: Straight/Heterosexual Physical Exam Vital Signs: Vital Signs: Last Vital Signs Temp 98.7 F 07/18/23 23:09 Pulse 76 07/18/23 23:09 Resp 16 07/18/23 23:09 BP 143/85 H 07/18/23 23:09 Pulse Ox 96 07/18/23 23:09 O2 Del Method Nasal Cannula 07/18/23 23:09 Oxygen Flow Rate 2 07/18/23 23:09 BMI result Body Mass Index 27.1 Vital signs were normal Exam: General: Awake, alert in no distress Head: Normocephalic, atraumatic EENT: PERRL, Lids normal, sclera normal, conjunctiva normal, nose normal , ears normal, throat without erythema or exudates Neck: Supple, no adenopathy, trachea midline and nontender Lung: breath sounds symmetric, no wheezing, rales or rhonchi Chest: symmetric movement, nontender Heart: regular rate and rhythm, normal S1, S2 no murmurs or rubs Abdomen: soft, distended, decreased bowel sounds, no tenderness, no voluntary or involuntary guarding Back: no vertebral tenderness, no CVAT Extremities: no deformities, moves all extremities symmetrically Skin: no rashes, no lesion, normal color and warmth Neuro: Awake, alert, oriented, normal speech, cranial nerves intact, moves all extremities symmetrically Psych: Pleasant, cooperative Medical Decision Making Differential Diagnosis 68-year-old male with history of hypertension, atrial fibrillation, depression, pacemaker with ICD who presents emergency department for evaluation of shortness of breath times several hours, abdominal distension x2 days with vomiting after eating and constipation. Vital signs were unremarkable. Lung exam was clear. Abdomen did appear to be distended with hypoactive bowel sounds. I ordered a chest x-ray and upright abdominal x-ray. 0319: Patient's chest x-ray revealed no evidence of pneumonia Upright abdominal x-ray did reveal increased gas and stool with no air-fluid levels consistent with constipation Patient was prescribed Colace 100 mg b.i.d., MiraLax 1 dose daily, Senokot extra strength b.i.d. as needed for constipation. The patient was given printed and verbal instructions and discharged home. Admission/Observation Consideration of admission/observation: Escalation of care including admission/observation considered Lab Data MDM Lab Attestation statement: I reviewed the patient's lab results. My interpretation of patient's laboratory evaluation is as follows: CBC was normal, CMP was normal, high sensitive troponin I was below detectable limits. 07/18/23 23:36 07/18/23 23:36 Labs: Lab Results 07/18/23 Range/Units 23:36 WBC 8.5 (4.8-10.8) X10*3/uL RBC 4.66 (4.60-5.80) X10*6/uL Hgb 13.3 L (14.0-18.0) g/dl Hct 40.5 L (42.0-52.0) % MCV 86.9 (80.0-98.0) fL MCH 28.5 (27.0-33.0) pg MCHC 32.8 (31.0-36.0) g/dl RDW 13.2 (11.0-16.0) % Plt Count 219 D (160-400) X10*3/uL MPV 10.0 (9.4-12.4) fL Immature Gran % (Auto) 0.4 (0.0-0.4) % Neut % (Auto) 56.5 (45-73) % Lymph % (Auto) 29.1 (20-40) % [place] % (Auto) 8.6 (2-11) % Eos % (Auto) 4.8 H (0-4) % Baso % (Auto) 0.6 (0-2) % Lymph # (Auto) 2.5 (1.2-4.9) X10*3/uL [place] # (Auto) 0.7 (0.1-1.2) X10*3/uL Eos # (Auto) 0.4 (0.0-0.4) X10*3/uL Baso # (Auto) 0.1 (0.0-0.2) X10*3/uL Abs Immat Gran (auto) 0.03 (0.00-0.03) X10*3/uL Absolute Neuts (auto) 4.8 (2.0-8.3) x10*3/uL Absolute Nucleated RBC 0.000 (0.0-0.012) X10*3/uL Nucleated RBC % (auto) 0.0 (0.0-0.2) /100WBC Sodium 142 (135-145) mmol/L Potassium 4.2 D (3.3-5.1) mmol/L Chloride 108 (96-108) mmol/L Carbon Dioxide 28 (22-29) mmol/L Anion Gap 10 L (12-20) BUN 14 (9-16) mg/dL Creatinine 0.84 (0.5-1.4) mg/dL Estim Creat Clear Calc 91.0 Estimated GFR > 60 Random Glucose 88 (60-115) mg/dL Calcium 9.8 (8.4-10.2) mg/dL Magnesium 2.0 (1.6-2.6) mg/dL Total Bilirubin 0.2 (0.0-1.0) mg/dL Direct Bilirubin < 0.2 (0.0-0.5) mg/dL AST 20 (5-37) U/L ALT 11 (0-40) U/L Alkaline Phosphatase 71 (39-117) U/L Troponin I High Sens < 2.7 (<3.5-35.0) ng/L Total Protein 7.5 (6.5-8.0) g/dL Albumin 3.8 (3.5-5.0) g/dL Independent Interpretation I performed an independent interpretation of an: EKG and Plain X-Ray Interpretation: My interpretation of the patient's x-rays as follows: Chest x-ray no acute disease, upright abdominal x-ray consistent with increased gas and stool secondary to constipation with no evidence for bowel obstruction or perforation. My independent interpretation the patient's 12 EKG done at 23:29 hours is as follows: Paced rhythm with a rate of 74, occasional PVC. Radiology Impression Discussion of test interpretation with radiology: I have reviewed the radiologist's reading. Radiologist Impression: XR chest 1V IMPRESSION: The findings are consistent with obstructing airway disease, similar to prior study. Dictated By: Collin Hawthorne MD XR abdomen 1V IMPRESSION: Stool and gas throughout mildly distended large bowel loops. Overall nonspecific bowel gas pattern. Dictated By: Mike Armenta Chronic Conditions Patient?s care impacted by: Other (Atrial fibrillation hyper 10) Discharge Plan Discharge Clinical Impression: Abdominal distension, Acute constipation Vomiting Qualifiers: Vomiting type: unspecified Nausea presence: with nausea Qualified Code(s): R11.2 - Nausea with vomiting, unspecified Patient Disposition: Home, Self-Care Instructions: Constipation (DC) Additional Instructions: Your chest x-ray was unremarkable, there is no evidence for pneumonia. Your abdominal x-ray revealed a large amount of gas in your colon and a large amount of stool in your colon, there was no air-fluid levels to suggest that you have a bowel obstruction. Take Colace 100 mg pills, 1 pill twice a day for 1 month, this is stool softener Take MiraLax once a day for 1 month. Take extra-strength Senokot 1 pill twice a day for 4 days then as needed for constipation Increase your fluid intake and fiber intake to help prevent further constipation. Follow-up with your doctor in 2 days. Please return to the emergency department if your symptoms get worse or if you develop any symptoms that are concerning to you. Prescriptions: New docusate sodium [Colace] 100 mg capsule 100 mg PO BID 30 Days Qty: 60 0RF polyethylene glycol 3350 [Miralax] 17 gram/dose powder 17 g PO DAILY 30 Days Qty: 510 0RF Senokot Extra Strength 17.2 mg tablet 17.2 mg PO BID PRN (Reason: constipation) Qty: 30 0RF No Action methadone 5 mg tablet 5 mg PO TID PRN (Reason: Pain (Scale Score 4-6)) oxycodone 10 mg tablet 1 tab PO BID PRN (Reason: Pain) acetaminophen 325 mg Tablet 650 mg PO Q6H PRN (Reason: Headache/Pain Mild Scale (1-3)) Qty: 0 0RF trazodone 50 mg tablet 1 tab PO BEDTIME Qty: 30 0RF nifedipine 90 mg tablet extended release 24hr 1 tab PO DAILY Qty: 30 0RF Hold Instructions: Resume on 04/28/23. hold and moniter blood pressure ,if consistently elevated consider adding nifedipine back. lisinopril 5 mg tablet 1 tab PO DAILY Qty: 30 0RF duloxetine [Cymbalta] 20 mg capsule,delayed release(DR/EC) 20 mg PO BID Qty: 60 0RF multivitamin with minerals Capsule 1 cap PO DAILY Qty: 30 0RF hydroxyzine HCl 25 mg tablet 25 mg PO QID Qty: 120 0RF clonidine HCl 0.2 mg tablet 0.2 mg PO TID Xarelto 20 mg tablet 20 mg PO DAILY Qty: 30 0RF Rx Instructions: must administer with evening meal metoprolol tartrate 50 mg Tablet 50 mg PO BID Qty: 60 0RF Protocol: Hold for SBP/HR < HOLD for SBP < : 90 HOLD for HR < : 60
[2023-07-19 03:26] VITALS: BP 141/81; PULSE 73; RESP 16; TEMP 36.7; O2SAT 94
--- NOTE | 2023-07-19 03:56 | MHC.EDTECH ---
call out to tahir at 0318 to book transport for pt back to assisted living facility, estimated eta given was [id number]
== END 2023-07-19 03:55 | disposition home or self-care (01) ==
PROVIDERS: Emergency Provider Emergency Medicine Emergency Medical Services; PCP Internal Medicine
DX: K59.00 Constipation, unspecified (principal); R06.02 Shortness of breath; R11.2 Nausea with vomiting, unspecified; R14.0 Abdominal distension (gaseous); I10 Essential (primary) hypertension; I48.91 Unspecified atrial fibrillation; Z95.0 Presence of cardiac pacemaker
CPT/HCPCS: 36415; 71045; 74018; 80048; 80076; 83735; 84484; 85025; 93005; 99284; 99285

== ENCOUNTER 2023-08-24 04:15 | Emergency (ER) | payer MEDICARE, SELFPAY ==
--- NOTE | ~2023-08-24 | XR_ITS ---
EXAMINATION: XR CHEST CLINICAL INFORMATION: Dyspnea COMPARISON: 07/18/2023 TECHNIQUE: Frontal view of the chest was obtained. FINDINGS: Left-sided pacemaker/AICD lead tips overlie the right atrium and right ventricle. Lung volumes are symmetric. No focal consolidation is seen. No evidence of pneumothorax, pleural effusion, or pulmonary edema. The cardiomediastinal contour is unremarkable. No acute osseous findings are seen. Redemonstrated gaseous distention of bowel in the upper abdomen, partially visualized. XR/XR chest 1V IMPRESSION: No acute cardiopulmonary findings.
[2023-08-24 04:21] VITALS: BP 142/84; BP 157/76; PULSE 78; PULSE 80; RESP 18; TEMP 37; O2SAT 93; O2SAT 96; BMI 23.2
[2023-08-24 04:40] VITALS: PULSE 74
--- NOTE | 2023-08-24 04:43 | PC.NURSE ---
pt reports he has had si thoughts x 40 years onset after losing first . pt denies having thoughts to act on them at this time/plan. call made to Laura; RN states pt is in a facility where they keep an eye on him however he is independent. clothing/belongings removed from pt. grip assembler aware; stated no need for sitter at this time as pt denied si/hi to her. vss. sats 96% on RA.
--- NOTE | 2023-08-24 05:09 | ECG_ITS ---
Test Reason : DYSPNEA Blood Pressure : / mmHG Vent. Rate : 080 BPM Atrial Rate : 500 BPM P-R Int : 258 ms QRS Dur : 082 ms QT Int : 420 ms P-R-T Axes : 000 052 050 degrees QTc Int : 484 ms Poor data quality Atrial-paced rhythm with prolonged AV conduction with premature ventricular or aberrantly conducted complexes Septal infarct (cited on or before 20-JUL-2014) Abnormal ECG When compared with ECG of 18-JUL-2023 23:29, No significant changes seen Referred By: Generic ED Physician Electronically Signed By:JOE TELLO MD
--- NOTE | 2023-08-24 05:33 | ED.GENADULT ---
HPI - General Adult General Chief complaint: Dyspnea Stated complaint: difficulty breathing Time Seen by Provider: 08/24/23 05:11 Source: patient Mode of arrival: EMS Limitations: no limitations History of Present Illness HPI narrative: Patient coming from a [facility] via ambulance. Patient states that he did not want to come to the hospital, the [facility] made him come. Patient states that he had been coughing a bit earlier today, fell a bit bloated. Patient states that they called EMS and he is not sure why they would do that because his symptoms were not severe. At this time, patient complaining of abdominal bloating, no significant pain, no chest pain shortness of breath nausea vomiting or diarrhea. No fever chills, no URI symptoms Related Data Home Medications Medication Instructions Recorded Confirmed methadone 5 mg tablet 5 mg PO TID PRN Pain (Scale Score 10/21/22 04/12/23 4-6) oxycodone 10 mg tablet 1 tab PO BID PRN Pain 10/21/22 04/12/23 clonidine HCl 0.2 mg tablet 0.2 mg PO TID 04/12/23 04/12/23 Previous Rx's Medication Instructions Recorded acetaminophen 325 mg tablet 650 mg (2 x 325 mg) PO Q6H PRN 10/28/22 Headache/Pain Mild Scale (1-3) #0 tabs lisinopril 5 mg tablet 1 tab PO DAILY #30 tabs 10/28/22 nifedipine 90 mg tablet,extended 1 tab PO DAILY #30 tabs 10/28/22 release 24 hr trazodone 50 mg tablet 1 tab PO BEDTIME #30 tabs 10/28/22 duloxetine 20 mg capsule,delayed 20 mg PO BID #60 caps 12/24/22 release (Cymbalta) multivitamin with minerals 1 cap PO DAILY #30 caps 12/31/22 hydroxyzine HCl 25 mg tablet 25 mg PO QID #120 tabs 01/15/23 metoprolol tartrate 50 mg tablet 50 mg PO BID #60 tabs 04/14/23 rivaroxaban 20 mg tablet (Xarelto) 20 mg PO DAILY #30 tabs 04/14/23 docusate sodium 100 mg capsule 100 mg PO BID 30 days #60 caps 07/19/23 (Colace) polyethylene glycol 3350 17 17 g PO DAILY 30 days #510 grams 07/19/23 gram/dose oral powder (Miralax) sennosides 17.2 mg tablet (Senokot 17.2 mg PO BID PRN constipation 07/19/23 Extra Strength) #30 tabs Allergies Allergy/AdvReac Type Severity Reaction Status Date / Time ergotamine [ERGOTAMINE] AdvReac Severe NAUSEA Verified 04/12/23 20:41 Review of Systems Review of Systems: Constitutional : No Weight loss, No Fever, No Chills, No Night Sweats, No Fatigue, No Malaise ENT/Mouth : No Hearing loss, No Ear Pain, No Nasal Congestion, No Sinus Pain, No Hoarseness, No sore throat, No Rhinorrhea, No Swallowing Difficulty Eyes: No Eye Pain, No Swelling, No Redness, No Foreign Body, No Discharge, No Vision Changes Cardiovascular : No Chest Pain, No SOB, No Dyspnea on Exertion, No Orthopnea, No Edema, No Palpitations Respiratory : No Cough, No Sputum, No Wheezing, No Smoke Exposure, No Dyspnea Gastrointestinal : No Nausea, No Vomiting, No Diarrhea, No Constipation, No abdominal Pain, No Hematochezia, No Melena complaining of feeling bloated Genitourinary : no irregular bleeding, No Dysuria, No Urinary Frequency, No Hematuria, No Urinary Incontinence, No Urgency, No Flank Pain, No Urinary Flow Changes, No Hesitancy Musculoskeletal : No joint pain, No Myalgias, No Joint Swelling Skin : No Skin Lesions, No rash Neuro : No Weakness, No Numbness, No Paresthesias, No Loss of Consciousness, No Dizziness, No Headache Psych : No Anxiety/Panic, No Depression, No SI/HI/AH/VH, No Social Issues, Heme/Lymph: No Bruising, No Bleeding,No Lymphadenopathy Endocrine : No Polyuria, No Polydipsia, No Temperature Intolerance [facility] Past Medical History Medical History History of intravenous drug abuse Presence of combination internal cardiac defibrillator (ICD) and pacemaker Ventricular arrhythmia Opioid dependence Lumbar disc herniation Thoracic disc herniation Cervical disc herniation Opioid abuse Pacemaker HTN (hypertension) Surgical History History of spinal fusion History of hip replacement Family History Family History Mother HTN (hypertension) CHF (congestive heart failure) Social History Social History Household Members: Other Household Members Other:: lives in a rooming home, no family just other tenants Housing: Apartment Do you presently have visiting nurse or other home services: No Alcohol intake: never Patient Tobacco Use Status: Never used Tobacco Smoked in Last 30 Days: No Second Hand Smoke Exposure: No Use of substances other than those prescribed or required for medical reasons: No Substance Use Type: Heroin Advance Directives: No Advance Directives Information Provided: No service: No Current occupational status: retired and disabled Sexual orientation: Straight/Heterosexual Physical Exam ED Vital Signs: Vital Signs - 24 hr 08/24/23 04:21 08/24/23 04:40 Temperature 98.6 F Pulse Rate 78 Pulse Rate [Monitor] 74 Respiratory Rate 18 Blood Pressure 157/76 H Pulse Oximetry 93 Oxygen Delivery Method Room Air BMI result Body Mass Index 23.2 Const Other: Appearance: Alert. Oriented X3. No acute distress. Eyes: Pupils equal, round and reactive to light. ENT: Pharynx normal. Neck: Normal inspection. Neck supple. No lymph nodes noted. No crepitus CVS: Normal heart rate and rhythm. Pulses normal. Normal S1 and S2 Respiratory: No respiratory distress. Breath sounds normal. No Wheezing. No rales Abdomen: Soft and nontender. No rigidity. Mild distention. Skin: Skin warm and dry. Normal skin color. Normal skin turgor. Extremities: No lower extremity edema. No Lacerations. No Rash Neuro: Oriented X 3. No motor deficit. No sensory deficit. Moving all extremities. No slurred speech. CN 2 through 12 grossly intact Psych: calm, cooperative, normal affect Medical Decision Making Medical Decision Making MDM Narrative: -patient states that he feels well, no pain, only abdominal distension. Abdomen does not hurt. -patient requesting that we do not do any labs -my interpretation of EKG: Atrial paced with prolonged AV conduction, heart rate 80, no ST segment depressions or depression, occasional PVCs -my interpretation of chest x-ray: No acute findings Differential Diagnosis Differential Diagnoses: The differential diagnosis associated with the presentation includes Admission/Observation Consideration of admission/observation: Escalation of care including admission/observation considered (Patient came in complaining of chest pain, given the patient's comorbidities, admission was considered on admission, patient declined) Independent Interpretation I performed an independent interpretation of an: Plain X-Ray Radiology Impression Discussion of test interpretation with radiology: I have reviewed the radiologist's reading. Radiologist Impression: INDINGS: Left-sided pacemaker/AICD lead tips overlie the right atrium and right ventricle. Lung volumes are symmetric. No focal consolidation is seen. No evidence of pneumothorax, pleural effusion, or pulmonary edema. The cardiomediastinal contour is unremarkable. No acute osseous findings are seen. Redemonstrated gaseous distention of bowel in the upper abdomen, partially visualized. XR/XR chest 1V IMPRESSION: No acute cardiopulmonary findings. Critical Care Time Critical Care Time Critical Care Time: Yes Total Critical Care Time: 60 Attestation: I have personally provided critical care time. Time includes review of lab data, radiology results, discussion with consultants, and monitoring for potential decompensation. Intervention performed as documented. Discharge Plan Discharge Clinical Impression: Abdominal distension Patient Disposition: Home, Self-Care Instructions: Abdominal Pain (ED) Additional Instructions: Please follow-up with your primary care physician tomorrow. If you have any worsening or new symptoms, please return to the emergency room or call 911 Prescriptions: No Action methadone 5 mg tablet 5 mg PO TID PRN (Reason: Pain (Scale Score 4-6)) oxycodone 10 mg tablet 1 tab PO BID PRN (Reason: Pain) acetaminophen 325 mg Tablet 650 mg PO Q6H PRN (Reason: Headache/Pain Mild Scale (1-3)) Qty: 0 0RF trazodone 50 mg tablet 1 tab PO BEDTIME Qty: 30 0RF nifedipine 90 mg tablet extended release 24hr 1 tab PO DAILY Qty: 30 0RF Hold Instructions: Resume on 04/28/23. hold and moniter blood pressure ,if consistently elevated consider adding nifedipine back. lisinopril 5 mg tablet 1 tab PO DAILY Qty: 30 0RF duloxetine [Cymbalta] 20 mg capsule,delayed release(DR/EC) 20 mg PO BID Qty: 60 0RF multivitamin with minerals Capsule 1 cap PO DAILY Qty: 30 0RF hydroxyzine HCl 25 mg tablet 25 mg PO QID Qty: 120 0RF docusate sodium [Colace] 100 mg capsule 100 mg PO BID 30 Days Qty: 60 0RF polyethylene glycol 3350 [Miralax] 17 gram/dose powder 17 g PO DAILY 30 Days Qty: 510 0RF Senokot Extra Strength 17.2 mg tablet 17.2 mg PO BID PRN (Reason: constipation) Qty: 30 0RF clonidine HCl 0.2 mg tablet 0.2 mg PO TID Xarelto 20 mg tablet 20 mg PO DAILY Qty: 30 0RF Rx Instructions: must administer with evening meal metoprolol tartrate 50 mg Tablet 50 mg PO BID Qty: 60 0RF Protocol: Hold for SBP/HR < HOLD for SBP < : 90 HOLD for HR < : 60
--- NOTE | 2023-08-24 06:25 | PC.NURSE ---
labs not done per Dr. Reveles approval as pt refused.
[2023-08-24 07:39] VITALS: BP 154/97; PULSE 74; RESP 16; TEMP 36.7; O2SAT 96
--- NOTE | 2023-08-24 07:41 | PC.NURSE ---
assumed care of pt at 0700. report taken from ANN Rubio. pt up for discharge. awaiting service secretary to arrange EMS pickup. currently sitting in bed, already changed back into pt's own clothes.
== END 2023-08-24 08:10 | disposition home or self-care (01) ==
PROVIDERS: Emergency Provider Emergency Medicine; PCP Internal Medicine
DX: R14.0 Abdominal distension (gaseous) (principal); R06.02 Shortness of breath; R94.31 Abnormal electrocardiogram [ECG] [EKG]; R05.9 Cough, unspecified; Z79.899 Other long term (current) drug therapy
CPT/HCPCS: 71045; 93005; 99283; 99285

== ENCOUNTER 2023-09-16 20:58 | Emergency (ER) | payer MEDICARE, SELFPAY ==
--- NOTE | ~2023-09-16 | CT_ITS ---
EXAMINATION: CT ABDOMEN AND PELVIS WITHOUT CONTRAST CLINICAL INFORMATION: Abdominal pain. Distention. COMPARISON: None available. TECHNIQUE: Multidetector volumetric imaging was performed from the superior aspect of the liver through the pubic symphysis. Sagittal and coronal reformatted images were obtained on the technologist's workstation. This CT examination was performed using dose optimization techniques as appropriate, variously including the following: *Automated exposure control *Adjustment of mA and/or kV according to patient size (this includes techniques or standardized protocols for targeted exams where dose is matched to indication/reason for exam; i.e. extremities or head) *Use of iterative reconstruction technique DLP: 646 mGy-cm FINDINGS: LUNG BASES: The visualized lung bases are unremarkable. LIVER, GALLBLADDER, AND BILIARY TREE: The liver is normal in size, shape, and attenuation. No focal hepatic lesion or biliary ductal dilatation is present. A few gallstones are noted. PANCREAS: Unremarkable. SPLEEN: Unremarkable. ADRENAL GLANDS: Unremarkable. KIDNEYS AND URETERS: The kidneys are normal in size, shape, and attenuation. No hydronephrosis, hydroureter, or calculi seen. No perinephric stranding. There is a 2.1 cm cyst lower pole left kidney. There is a 6 mm calculus lower pole right kidney. BLADDER: Unremarkable. GASTROINTESTINAL TRACT: There are distended gas-filled large bowel loops intermixed with stool. There is no evidence for small bowel obstruction. The appendix is borderline in size measuring up to 7 mm without surrounding infiltration. ABDOMINAL WALL: No significant hernia is appreciated. LYMPH NODES: Normal. VASCULAR: Unremarkable. PELVIC VISCERA: Unremarkable. OSSEOUS STRUCTURES: There is diffuse thoracolumbar disc degenerative change. There is minimal anterolisthesis L5 over S1. CT/CT abdomen pelvis wo IV con IMPRESSION: Distended large bowel loops with gas and stool throughout. No evidence for small bowel obstruction. Nonobstructing calculus lower pole right kidney. Cholelithiasis. Borderline appendix measuring 7 mm. No periappendiceal infiltration. Fleischner guidelines were followed.
--- NOTE | ~2023-09-16 | XR_ITS ---
EXAMINATION: XR ABDOMEN KUB CLINICAL INDICATION: Abdominal pain. History of constipation. COMPARISON: Previous KUB July 2023 TECHNIQUE: AP view of the abdomen. FINDINGS: There is a large amount of stool in the colon. The colon is dilated suggestive of obstruction or obstipation. There is no free air. Atherosclerotic disease. Bilateral hip replacements. Degenerative changes of the lumbar spine. XR/XR KUB IMPRESSION: Constipation. Dilated large bowel suggestive of constipation or obstruction.
[2023-09-16 21:16] VITALS: BP 116/71; BP 117/81; PULSE 78; PULSE 90; RESP 18; TEMP 36.9; O2SAT 88; O2SAT 93; BMI 25.1
--- NOTE | 2023-09-16 21:27 | ECG_ITS ---
Test Reason : ABDOMINAL PAIN Blood Pressure : / mmHG Vent. Rate : 071 BPM Atrial Rate : 000 BPM P-R Int : 000 ms QRS Dur : 088 ms QT Int : 408 ms P-R-T Axes : 000 051 062 degrees QTc Int : 443 ms Electronic ventricular pacemaker Low voltage QRS Nonspecific T wave abnormality Abnormal ECG When compared with ECG of 24-AUG-2023 05:19, Premature ventricular complexes is no longer Present Referred By: Rayna Pompa Electronically Signed By:JOE TELLO MD
--- NOTE | 2023-09-16 22:00 | PC.NURSE ---
Patient returned from xray. Pleasant calm and cooperative. Appears comfortable on ED stretcher. No complaints at this time, call delgado within reach.
--- NOTE | 2023-09-16 22:09 | ED.ABDPAIN ---
HPI - Abdominal Pain General Chief Complaint: Abdominal Pain Stated Complaint: SOB,,DIZZY,ABD PAIN, FIRM & SLIGHTLY DISTENDED Time Seen by Provider: 09/16/23 21:23 Source: patient Mode of arrival: EMS History of Present Illness HPI narrative: 68-year-old male is brought in by EMS for increasing abdominal distension and pain without associated nausea or vomiting in states that he thinks he is still passing gas but states he does not eat much and denies any fevers or chills he does report shortness of breath. Patient is on oxycodone and methadone at the facility. Related Data Home Medications Medication Instructions Recorded Confirmed methadone 5 mg tablet 5 mg PO TID PRN Pain (Scale Score 10/21/22 04/12/23 4-6) oxycodone 10 mg tablet 1 tab PO BID PRN Pain 10/21/22 04/12/23 clonidine HCl 0.2 mg tablet 0.2 mg PO TID 04/12/23 04/12/23 Previous Rx's Medication Instructions Recorded acetaminophen 325 mg tablet 650 mg (2 x 325 mg) PO Q6H PRN 10/28/22 Headache/Pain Mild Scale (1-3) #0 tabs lisinopril 5 mg tablet 1 tab PO DAILY #30 tabs 10/28/22 nifedipine 90 mg tablet,extended 1 tab PO DAILY #30 tabs 10/28/22 release 24 hr trazodone 50 mg tablet 1 tab PO BEDTIME #30 tabs 10/28/22 duloxetine 20 mg capsule,delayed 20 mg PO BID #60 caps 12/24/22 release (Cymbalta) multivitamin with minerals 1 cap PO DAILY #30 caps 12/31/22 hydroxyzine HCl 25 mg tablet 25 mg PO QID #120 tabs 01/15/23 metoprolol tartrate 50 mg tablet 50 mg PO BID #60 tabs 04/14/23 rivaroxaban 20 mg tablet (Xarelto) 20 mg PO DAILY #30 tabs 04/14/23 docusate sodium 100 mg capsule 100 mg PO BID 30 days #60 caps 07/19/23 (Colace) polyethylene glycol 3350 17 17 g PO DAILY 30 days #510 grams 07/19/23 gram/dose oral powder (Miralax) sennosides 17.2 mg tablet (Senokot 17.2 mg PO BID PRN constipation 07/19/23 Extra Strength) #30 tabs Allergies Allergy/AdvReac Type Severity Reaction Status Date / Time ergotamine [ERGOTAMINE] AdvReac Severe NAUSEA Verified 04/12/23 20:41 Review of Systems Review of Systems Pertinent positives and negatives as stated in HPI [facility] Past Medical History Source: nursing notes reviewed Medical History History of intravenous drug abuse Presence of combination internal cardiac defibrillator (ICD) and pacemaker Ventricular arrhythmia Opioid dependence Lumbar disc herniation Thoracic disc herniation Cervical disc herniation Opioid abuse Pacemaker HTN (hypertension) Surgical History History of spinal fusion History of hip replacement Family History Family History Mother HTN (hypertension) CHF (congestive heart failure) Social History Social History Household Members: Other Household Members Other:: lives in a rooming home, no family just other tenants Housing: Apartment Do you presently have visiting nurse or other home services: No Unable to assess alcohol history related to: Unknown Alcohol intake: never Patient Tobacco Use Status: Never used Tobacco Smoked in Last 30 Days: No Second Hand Smoke Exposure: No Use of substances other than those prescribed or required for medical reasons: No Substance Use Type: Heroin Advance Directives: No Advance Directives Information Provided: No service: No Current occupational status: retired and disabled Sexual orientation: Straight/Heterosexual Physical Exam ED Vital Signs: Vital Signs - 24 hr 09/16/23 21:16 09/17/23 00:32 09/17/23 03:04 Temperature 98.5 F 98.2 F Pulse Rate 78 67 70 Respiratory Rate 18 22 H 11 L Blood Pressure 117/81 101/63 108/57 L Pulse Oximetry 93 95 97 Oxygen Delivery Method Nasal Cannula Nasal Cannula Nasal Cannula Oxygen Flow Rate 2 2 BMI result Body Mass Index 25.1 VITAL SIGNS: Reviewed. GENERAL: Well developed, well nourished, in no acute distress. HEAD: Normocephalic/atraumatic EYES: PERRLA, EOMI EARS: Ext canals without abnormality NOSE: Nares patent bilateral OROPHARYNX: no oral lesions noted, posterior pharynx clear NECK: Supple, no adenopathy LUNGS: Normal breath sounds. No adventitious sounds or accessory muscle use. SpO2<93> on 2 L nasal cannula CARDIOVASCULAR: Regular rate and rhythm without noted murmurs, no JVD or lower extremity edema. ABDOMEN: firm, tender, distended with bowel sounds. MUSCULOSKELETAL: No tenderness, deformities, or effusions noted on gross inspection. EXTREMITIES: No cyanosis, clubbing or edema. SKIN: Inspection of the skin reveals no rashes, ulcerations, jaundice, pallor, or petechiae. NEUROLOGIC: Alert and oriented x 4. Strength and sensation to light touch were grossly intact x 4. Medical Decision Making Medical Decision Making [facility] Narrative: 68-year-old male with history and clinical presentation, DDX: Tirso's, mass, volvulus, less likely felt to be constipation. I reviewed all investigations and hematologic indices are negative for leukocytosis or left shift, there is no thrombocytopenia and there is a stable normocytic anemia. Coagulation studies are consistent with patient's chronic anticoagulation. chemistry indices are grossly within normal limits and do not demonstrate any FELIZ I are electrolytes/liver enzyme abnormalities. KUB consistent with constipation and demonstration of dilated large bowel. I went into re-evaluate the patient and was planning on placing a rectal tube to decompress the large colon, but on re-evaluation his stomach is soft and nondistended and he states he passed a large amount of gas and feels much better. is otherwise discharged back to the facility. Differential Diagnosis Differential Diagnoses: The differential diagnosis associated with the presentation includes Please see the discussion above Admission/Observation Consideration of admission/observation: Escalation of care including admission/observation considered please see the discussion above Lab Data [facility] Lab Attestation statement: I reviewed the patient's lab results. Please see the discussion above 09/16/23 22:26 09/16/23 22:26 Labs: Lab Results 09/16/23 Range/Units 22:26 WBC 8.6 (4.8-10.8) X10*3/uL RBC 4.87 (4.60-5.80) X10*6/uL Hgb 13.6 L (14.0-18.0) g/dl Hct 42.5 (42.0-52.0) % MCV 87.3 (80.0-98.0) fL MCH 27.9 (27.0-33.0) pg MCHC 32.0 (31.0-36.0) g/dl RDW 12.9 (11.0-16.0) % Plt Count 185 (160-400) X10*3/uL MPV 10.7 (9.4-12.4) fL Immature Gran % (Auto) 0.4 (0.0-0.4) % Neut % (Auto) 64.0 (45-73) % Lymph % (Auto) 22.5 (20-40) % Howell % (Auto) 7.5 (2-11) % Eos % (Auto) 5.0 H (0-4) % Baso % (Auto) 0.6 (0-2) % Lymph # (Auto) 1.9 (1.2-4.9) X10*3/uL Howell # (Auto) 0.6 (0.1-1.2) X10*3/uL Eos # (Auto) 0.4 (0.0-0.4) X10*3/uL Baso # (Auto) 0.1 (0.0-0.2) X10*3/uL Abs Immat Gran (auto) 0.03 (0.00-0.03) X10*3/uL Absolute Neuts (auto) 5.5 (2.0-8.3) x10*3/uL Absolute Nucleated RBC 0.000 (0.0-0.012) X10*3/uL Nucleated RBC % (auto) 0.0 (0.0-0.2) /100WBC PT 22.9 H (11.1-13.3) SEC INR 1.9 H (0.9-1.1) Sodium 143 (135-145) mmol/L Potassium 4.8 (3.3-5.1) mmol/L Chloride 107 (96-108) mmol/L Carbon Dioxide 28 (22-29) mmol/L Anion Gap 13 (12-20) BUN 12 (9-16) mg/dL Creatinine 0.85 (0.5-1.4) mg/dL Estim Creat Clear Calc 82.0 Estimated GFR > 60 Random Glucose 90 (60-115) mg/dL Calcium 9.6 (8.4-10.2) mg/dL Total Bilirubin 0.2 (0.0-1.0) mg/dL AST 23 (5-37) U/L ALT 13 (0-40) U/L Alkaline Phosphatase 67 (39-117) U/L Total Protein 7.4 (6.5-8.0) g/dL Albumin 3.8 (3.5-5.0) g/dL Independent Interpretation I performed an independent interpretation of an: EKG Interpretation: atrial fibrillation, pacer, HR-71, no STEMI, QRS/ QTC within normal limits. Radiology Impression Discussion of test interpretation with radiology: I have reviewed the radiologist's reading. Radiologist Impression: please see the discussion above External Record Review External record reviewed: Outpatient record, Prior outpatient labs and Prior outpatient radiology Chronic Conditions Patient?s care impacted by: Hypertension and Other atrial fibrillation, chronic anticoagulation Medications Administered Discontinued Medications Generic Name Dose Route Start Last Admin Trade Name Freq PRN Reason Stop Dose Admin Acetaminophen 975 mg 09/16/23 22:12 09/16/23 22:41 Acetaminophen 325 Mg Tablet PO 09/16/23 22:13 975 mg ONCE ONE Administration Diatrizoate Meglum/Diatrizoate Sod 30 ml 09/16/23 22:19 09/16/23 22:20 Diatrizoate Meglumine, Sodium 30 Ml Solution PO 09/16/23 22:20 30 ml ONCE ONE Administration Critical Care Time Critical Care Time Critical Care Time: Yes Total Critical Care Time: 30 Attestation: I personally attest to this time spent taking care of the patient. Discharge Plan Discharge Clinical Impression: Constipation, Chronic, continuous use of opioids Patient Disposition: Xfer Other Instructions: Constipation (ED), High Fiber Diet (ED), Fleet Enema (ED) Additional Instructions: 1. Resume all home medications as prescribed. 2. Please follow-up with a primary care doctor in the next 1-2 days. Return to the ER for any worsening symptoms. Prescriptions: No Action methadone 5 mg tablet 5 mg PO TID PRN (Reason: Pain (Scale Score 4-6)) oxycodone 10 mg tablet 1 tab PO BID PRN (Reason: Pain) acetaminophen 325 mg Tablet 650 mg PO Q6H PRN (Reason: Headache/Pain Mild Scale (1-3)) Qty: 0 0RF trazodone 50 mg tablet 1 tab PO BEDTIME Qty: 30 0RF nifedipine 90 mg tablet extended release 24hr 1 tab PO DAILY Qty: 30 0RF Hold Instructions: Resume on 04/28/23. hold and moniter blood pressure ,if consistently elevated consider adding nifedipine back. lisinopril 5 mg tablet 1 tab PO DAILY Qty: 30 0RF duloxetine [Cymbalta] 20 mg capsule,delayed release(DR/EC) 20 mg PO BID Qty: 60 0RF multivitamin with minerals Capsule 1 cap PO DAILY Qty: 30 0RF hydroxyzine HCl 25 mg tablet 25 mg PO QID Qty: 120 0RF docusate sodium [Colace] 100 mg capsule 100 mg PO BID 30 Days Qty: 60 0RF polyethylene glycol 3350 [Miralax] 17 gram/dose powder 17 g PO DAILY 30 Days Qty: 510 0RF Senokot Extra Strength 17.2 mg tablet 17.2 mg PO BID PRN (Reason: constipation) Qty: 30 0RF clonidine HCl 0.2 mg tablet 0.2 mg PO TID Xarelto 20 mg tablet 20 mg PO DAILY Qty: 30 0RF Rx Instructions: must administer with evening meal metoprolol tartrate 50 mg Tablet 50 mg PO BID Qty: 60 0RF Protocol: Hold for SBP/HR < HOLD for SBP < : 90 HOLD for HR < : 60
[2023-09-16] MEDS: Diatrizoate Meglumine, Sodium 30 ML SOLUTION PO (22:20)
[2023-09-16 22:31] LABS: MANUAL DIFF FLAG NO
[2023-09-16 22:38] LABS: Basophils Absolute Auto 0.1 X10*3/uL (0.0-0.2); Basophils Percent Auto 0.6 % (0-2); Eosinophils Absolute Auto 0.4 X10*3/uL (0.0-0.4); Hematocrit 42.5 % (42.0-52.0); Hemoglobin 13.6 g/dl (14.0-18.0); Imm Gran Abs Auto 0.03 X10*3/uL (0.00-0.03); Imm Gran Pct Auto 0.4 % (0.0-0.4); Lymphocytes Absolute Auto 1.9 X10*3/uL (1.2-4.9); Lymphocytes Percent Auto 22.5 % (20-40); Mean Corpuscular Hemoglobin 27.9 pg (27.0-33.0); Mean Corpuscular Volume 87.3 fL (80.0-98.0); Mean Platelet Volume 10.7 fL (9.4-12.4); Monocytes Absolute Auto 0.6 X10*3/uL (0.1-1.2); Monocytes Percent Auto 7.5 % (2-11); Neutrophils Absolute Auto 5.5 x10*3/uL (2.0-8.3); Platelet Count 185 X10*3/uL (160-400); Red Blood Count 4.87 X10*6/uL (4.60-5.80); Red Cell Distribution Width 12.9 % (11.0-16.0); White Blood Count 8.6 X10*3/uL (4.8-10.8)
[2023-09-16] MEDS: Acetaminophen 325 MG TABLET 975 MG PO (22:41)
[2023-09-16 22:46] LABS: INTERNATIONAL NORM RATIO 1.9 (0.9-1.1); Prothrombin Time 22.9 SEC (11.1-13.3)
[2023-09-16 22:48] LABS: Alanine Aminotransferase 13 U/L (0-40); Albumin Level 3.8 g/dL (3.5-5.0); Alkaline Phosphatase 67 U/L (39-117); Anion Gap 13 (12-20); Aspartate Amino Transferase 23 U/L (5-37); Bilirubin Total 0.2 mg/dL (0.0-1.0); Blood Urea Nitrogen 12 mg/dL (9-16); Calcium 9.6 mg/dL (8.4-10.2); Carbon Dioxide 28 mmol/L (22-29); Chloride 107 mmol/L (96-108); Estimated Glomerular Filt Rate > 60; Glucose Random 90 mg/dL (60-115); Potassium 4.8 mmol/L (3.3-5.1); Sodium 143 mmol/L (135-145); Total Protein 7.4 g/dL (6.5-8.0)
[2023-09-17 00:32] VITALS: BP 101/63; PULSE 67; RESP 22; TEMP 36.8; O2SAT 95
--- NOTE | 2023-09-17 00:53 | PC.NURSE ---
pt has approx 1.5 cups of po contrast left refusing to finish. Dr. Pompa notified ok with CT scan being done; ct scan staff notified of time last drank states they will scan him approx 0130.
--- NOTE | 2023-09-17 01:42 | PC.NURSE ---
pt in ct scan at this time.
[2023-09-17 03:04] VITALS: BP 108/57; PULSE 70; RESP 11; O2SAT 97
--- NOTE | 2023-09-17 04:04 | PC.NURSE ---
Dr. Pompa requested flexiseal be placed to relieve pt of gas buildup; pt states he'd rather speak to the Dr and refusing flexiseal to this RN. pt stating i'd rather not introduce something to my body if its going to make me feel more uncomfortable/sicker. Dr. Pompa aware no further interventions at this time. pt denies pain at this time just feels uncomfortable. abd soft.
--- NOTE | 2023-09-17 04:16 | PC.NURSE ---
Dr. Pompa at bedside pt continues to refuse flexiseal; Dr. Pompa ok as +Flatulence?.
--- NOTE | 2023-09-17 04:26 | PC.NURSE ---
ed marketing secretary notified for need of ems transfer for d/c.
--- NOTE | 2023-09-17 06:13 | PC.NURSE ---
report given to bharat JUAREZ.
== END 2023-09-17 06:47 | disposition other institution (70) ==
PROVIDERS: Emergency Provider Student in an Organized Health Care Education/Training Program
DX: K59.00 Constipation, unspecified (principal); R06.02 Shortness of breath; R94.31 Abnormal electrocardiogram [ECG] [EKG]; R42 Dizziness and giddiness; R14.0 Abdominal distension (gaseous); F11.19 Opioid abuse with unspecified opioid-induced disorder; Z79.899 Other long term (current) drug therapy; Z71.51 Drug abuse counseling and surveillance of drug abuser
CPT/HCPCS: 36415; 74018; 74176; 80053; 85025; 85610; 93005; 99284; 99285

== ENCOUNTER 2023-12-12 10:07 | Inpatient (IN) | payer MEDICARE, SELFPAY ==
[2023-12-12] VITALS (8 sets, daily range): BP systolic 98–130; BP diastolic 57–80; PULSE 56–76; RESP 12–16; TEMP 36.1–37.8; O2SAT 95–100; BMI 24.2
--- NOTE | ~2023-12-12 | US_ITS ---
EXAMINATION: US ABDOMEN LIMITED CLINICAL INFORMATION: Question common bile duct stone on CT of abdomen and pelvis. COMPARISON: CT abdomen pelvis 12/12/2023 TECHNIQUE: Real-time imaging of the right upper quadrant abdominal viscera. FINDINGS: PANCREAS: Obscured from visualization by overlying bowel gas LIVER: Diffuse increased echogenicity of the liver is noted. Liver size and capsular contour normal in appearance. Mild intrahepatic biliary duct dilatation is noted. GALLBLADDER: Multiple gallstones are present within the gallbladder lumen. A 2.7 cm gallstone is noted within the fundus of the gallbladder. A 2.5 cm calculus is noted within the gallbladder body. No pericholecystic fluid collections identified. The gallbladder wall measures 5 mm in width. A positive sonographic Quinn sign is reported by the nuclear medical technologist. COMMON BILE DUCT: Normal in caliber measuring 0.9 cm in diameter. No choledocholithiasis identified. The right kidney is not evaluated. FREE FLUID: None. US/US abdomen limited IMPRESSION: *Cholelithiasis and possible acute cholecystitis. Multiple gallstones within the gallbladder lumen. Mild diffuse gallbladder wall thickening and a positive sonographic Quinn sign are noted in addition to cholelithiasis and are suggestive of acute cholecystitis. *Biliary duct dilatation. The common bile duct measures 9 mm in diameter and mild diffuse intrahepatic biliary duct dilatation is identified. No choledocholithiasis visualized. The distal common bile duct is not visualized and may be obscured from visualization by overlying bowel gas.
--- NOTE | ~2023-12-12 | CT_ITS ---
EXAMINATION: CT ABDOMEN AND PELVIS WITH CONTRAST CLINICAL INFORMATION: Pain and copious diarrhea COMPARISON: CT abdomen pelvis 09/17/2023. TECHNIQUE: Multidetector volumetric images were obtained from the superior aspect of the liver through the pubic symphysis following administration 85 mL of Omnipaque 350 intravenous contrast. Sagittal and coronal reformatted images were obtained on the technologist's workstation. Oral contrast: No This CT examination was performed using dose optimization techniques as appropriate, variously including the following: *Automated exposure control *Adjustment of mA and/or kV according to patient size (this includes techniques or standardized protocols for targeted exams where dose is matched to indication/reason for exam; i.e. extremities or head) *Use of iterative reconstruction technique DLP: 598 mGy-cm FINDINGS: LUNG BASES: The lungs are emphysematous Minimal platelike atelectasis right middle lobe and lingula. Heart size is normal. There are pacer electrodes in right atrium and right ventricle. There is ill-defined 5 mm nodule right lung base image 13/3. LIVER, GALLBLADDER, AND BILIARY TREE: The liver is normal in size, shape, and attenuation. There is mild intrahepatic and extrahepatic ductal dilatation. Distal CBD measures 7 mm and proximal CBD measures 9. There is a punctate calcification extraluminal calcification versus calcification or stone within mid CBD. Punctate gallstone seen on the previous CT are not readily visualized on the present exam and could have migrated into the distal CBD segment and hence mild intrahepatic ductal dilatation and mild prominence of CBD. PANCREAS: Unremarkable. SPLEEN: Unremarkable. ADRENAL GLANDS: Unremarkable. KIDNEYS AND URETERS: The kidneys are normal in size, shape, and attenuation. There is a nonobstructive lower pole right renal calculi unchanged to previous study.. No perinephric stranding. There are 2 lower pole left renal cyst the largest measuring 2.2 cm. There are additional nonenhancing small cyst in the midpole of both kidneys. BLADDER: The bladder is nondistended and not visualized due to beam hardening artifact from the prosthesis. GASTROINTESTINAL TRACT: There is mild mural thickening involving rectum, sigmoid, descending and left transverse colon. There is some mural thickening of the ascending colon as well. No pericolic fat stranding seen. The small bowel loops are normal caliber. Appendix is not visualized. No free air or free fluid. ABDOMINAL WALL: No significant hernia is appreciated. LYMPH NODES: Normal. VASCULAR: Mild atherosclerotic calcification of abdominal aorta but no dilation seen. PELVIC VISCERA: No abnormal pelvic lymph nodes. Is no free fluid. Prominent bilateral inguinal canal are noted. OSSEOUS STRUCTURES: No aggressive lytic or sclerotic process seen. There are bilateral hip prosthesis. Degenerative disc changes L5-S1 and L2-L3 disc level with endplate sclerosis at L2-L2 disc level is noted. Grade 1 anterolisthesis L5 over S1 is noted. CT/CT abdomen pelvis w IV con IMPRESSION: 1. Diffuse mural thickening involving the rectum, sigmoid, descending and ascending colon suggestive of inflammatory or infectious colitis. There is a new finding since 09/17/2023 There is no pericolic fat stranding seen. 2. Mild intrahepatic and extrahepatic ductal dilatation with a punctate calcification versus stone in the mid CBD. This could be secondary to a migrated bowel stone into the distal CBD and not visualized on the scan. MRCP or ERCP can be performed. 3. Nonobstructive lower pole right renal calculi, stable. Bilateral renal cysts. 4. Ill-defined 5 mm nodule right lung base, stable. Fleischner guidelines were followed.
--- NOTE | 2023-12-12 10:16 | ECG_ITS ---
Test Reason : DIAHRREA Blood Pressure : / mmHG Vent. Rate : 080 BPM Atrial Rate : 000 BPM P-R Int : 000 ms QRS Dur : 082 ms QT Int : 452 ms P-R-T Axes : 000 044 050 degrees QTc Int : 521 ms Artifact in tracing Undetermined rhythm ; possible sinus with PVCs Septal infarct , age undetermined Abnormal ECG When compared with ECG of 16-SEP-2023 21:59, Premature ventricular complexes present Referred By: Brandy Willett Electronically Signed By:ASTER BRENNAN
--- NOTE | 2023-12-12 10:21 | ED_ITS ---
HPI - Nausea/Vomiting/Diarrhea General Chief complaint: Nausea/Vomiting/Diarrhea Stated complaint: NAUSEA,PAIN W/BM PER EMS Time Seen by Provider: 12/12/23 10:08 Source: patient and old records reviewed Mode of arrival: EMS Limitations: other (very poor historian) History of Present Illness HPI Narrative: 68 yo male with PMH of PAF on xarelto, HTN, personality disorder, MDD, ventricular arrhythmia with AICD, opiate dependence on methadone he is at [facility] currently he is a poor historian. Per EMS they were called for patient with abdominal pain and difficulty having BM though he was on the toilet with significant liquid brown stool and on arrival to the ED he had such a large amount of liquid brown stool out of his pants that it poured off the EMS stretcher like a waterfall and splashed all over the ER floor. He cannot provide much history otherwise. He denies taking any extra laxatives usually has hx of constipation and is on miralax daily. He does have nausea. MD elicited complaint: nausea, diarrhea and abdominal pain Onset (ago): day(s) (?this AM) Associated nausea: Yes Associated abdominal pain: Yes Location of pain: diffuse Radiation: diffuse Pain consistency: constant Severity: severe Quality: stabbing Exacerbating factors: bowel movement and movement Relieving factors: none Associated symptoms: loss of appetite, malaise and nausea/vomiting Related Data Home Medications Medication Instructions Recorded Confirmed methadone 5 mg tablet 5 mg PO TID PRN Pain (Scale Score 10/21/22 04/12/23 4-6) oxycodone 10 mg tablet 1 tab PO BID PRN Pain 10/21/22 04/12/23 clonidine HCl 0.2 mg tablet 0.2 mg PO TID 04/12/23 04/12/23 Previous Rx's Medication Instructions Recorded acetaminophen 325 mg tablet 650 mg (2 x 325 mg) PO Q6H PRN 10/28/22 Headache/Pain Mild Scale (1-3) #0 tabs lisinopril 5 mg tablet 1 tab PO DAILY #30 tabs 10/28/22 nifedipine 90 mg tablet,extended 1 tab PO DAILY #30 tabs 10/28/22 release 24 hr trazodone 50 mg tablet 1 tab PO BEDTIME #30 tabs 10/28/22 duloxetine 20 mg capsule,delayed 20 mg PO BID #60 caps 12/24/22 release (Cymbalta) multivitamin with minerals 1 cap PO DAILY #30 caps 12/31/22 hydroxyzine HCl 25 mg tablet 25 mg PO QID #120 tabs 01/15/23 metoprolol tartrate 50 mg tablet 50 mg PO BID #60 tabs 04/14/23 rivaroxaban 20 mg tablet (Xarelto) 20 mg PO DAILY #30 tabs 04/14/23 docusate sodium 100 mg capsule 100 mg PO BID 30 days #60 caps 07/19/23 (Colace) polyethylene glycol 3350 17 17 g PO DAILY 30 days #510 grams 07/19/23 gram/dose oral powder (Miralax) sennosides 17.2 mg tablet (Senokot 17.2 mg PO BID PRN constipation 07/19/23 Extra Strength) #30 tabs Allergies Allergy/AdvReac Type Severity Reaction Status Date / Time ergotamine [ERGOTAMINE] AdvReac Severe NAUSEA Verified 04/12/23 20:41 Review of Systems 2 Review of Systems: Constitutional : No Weight loss, No Fever, No Chills ENT/Mouth : No sore throat, No Rhinorrhea Eyes: No Swelling, No Redness Cardiovascular : No Chest Pain, No SOB, NoEdema Respiratory : No Cough, No Sputum, No Wheezing Gastrointestinal : Positive Nausea, no Vomiting, positive Diarrhea, positive abdominal Pain, No Hematochezia, No Melena Genitourinary : No Dysuria, No Urinary Frequency, No Hematuria, No Urgency Musculoskeletal : No joint pain, No Myalgias, No Joint Swelling Skin : No Skin Lesions, No rash Neuro : No Weakness, No Numbness, No Dizziness, No Headache Psych : No Anxiety/Panic, No Depression All other systems reviewed and are negative. Gastrointestinal: Gastrointestinal: Reports nausea PMFSH Past Medical History Attestation statement: The following information was validated with the patient. Source: old records reviewed Medical History History of intravenous drug abuse Presence of combination internal cardiac defibrillator (ICD) and pacemaker Ventricular arrhythmia Opioid dependence Lumbar disc herniation Thoracic disc herniation Cervical disc herniation Opioid abuse Pacemaker HTN (hypertension) Surgical History History of spinal fusion History of hip replacement Family History Family History Mother HTN (hypertension) CHF (congestive heart failure) Social History Social History Household Members: Other Household Members Other:: lives in a rooming home, no family just other tenants Housing: Apartment Do you presently have visiting nurse or other home services: No Unable to assess alcohol history related to: Unknown Alcohol intake: never Patient Tobacco Use Status: Never used Tobacco Smoked in Last 30 Days: No Second Hand Smoke Exposure: No Use of substances other than those prescribed or required for medical reasons: No Substance Use Type: Heroin Advance Directives: No Advance Directives Information Provided: Yes service: No Current occupational status: retired and disabled Sexual orientation: Straight/Heterosexual Physical Exam 2 Vital Signs: Vital Signs: Last Vital Signs Temp 98.8 F 12/12/23 10:40 Pulse 74 12/12/23 11:31 Resp 12 12/12/23 11:31 BP 117/70 12/12/23 11:31 Pulse Ox 97 12/12/23 11:31 O2 Del Method Room Air 12/12/23 11:31 BMI result Body Mass Index 24.2 Appearance: Alert. Oriented X2 (confused on time). anxious mild acute distress. appears uncomfortable, patient is much older than stated age Eyes: Pupils equal, round and reactive to light. ENT: Pharynx normal. Neck: Normal inspection. Neck supple. CVS: Normal heart rate and rhythm. Pulses normal. Respiratory: No respiratory distress. Breath sounds normal. Abdomen: Soft no distention but having pain diffusely Rectal: copious and massive amounts of foul smelling liquid brown stool Skin: Skin warm and dry. pale skin color. poor skin turgor. Extremities: No lower extremity edema. No calf ttp Neuro: Oriented X 2. No motor deficit. No sensory deficit. Course Course Course Narrative: at this time suspect c diff will dose with oral vancomycin [id number] vomiting Reevaluation(s) Reevaluation #1: c diff came back negative GI panel negative at this time will hold vancomycin as was ordered and never given apparently due to vomiting and he wouldn't take it. At this time given neg c diff will start on ceftriaxone and flagyl. his pain is better, diarrhea has slowed down. pending CT scan 113pm Medications Administered Discontinued Medications Generic Name Dose Route Start Last Admin Trade Name Glenna PRN Reason Stop Dose Admin Fentanyl 50 mcg 12/12/23 10:37 12/12/23 10:43 Fentanyl Citrate/Pf 100 Mcg/2 Ml Vial IVPUSH 12/12/23 10:38 50 mcg ONCE ONE Administration Protocol Sodium Chloride 1,000 mls @ 999 mls/hr 12/12/23 10:30 12/12/23 10:43 Ns IV 12/12/23 11:30 999 mls/hr .Q1H1M [place] Administration Sodium Chloride 1,000 mls @ 999 mls/hr 12/12/23 10:45 12/12/23 10:46 Ns IV 12/12/23 11:45 999 mls/hr .Q1H1M [place] Administration Iohexol 85 ml 12/12/23 12:36 12/12/23 12:37 Iohexol 350 Mg/Ml 100 Ml Infus..Btl IV 12/12/23 12:37 85 ml ONCE ONE Administration Ondansetron HCl 4 mg 12/12/23 10:17 12/12/23 10:43 Ondansetron Hcl 4 Mg/2 Ml Vial IVPUSH 12/12/23 10:18 4 mg ONCE ONE Administration Medical Decision Making Medical Decision Making MDM Narrative: 68 yo male with PMH of PAF on xarelto, HTN, personality disorder, MDD, ventricular arrhythmia with AICD, opiate dependence on methadone here with abdominal pain nausea and massive diarrhea at this time labs, fluids, cultures, stool studies, CT scan for colitis/ischemia/obstruction ordered. Expect admit. Differential Diagnosis Differential Diagnoses: The differential diagnosis associated with the presentation includes obstruction, ischemic bowel, c diff, enteritis Admission/Observation Consideration of admission/observation: Escalation of care including admission/observation considered will need admission for further workup IVF ordered initially ordered vanco for presumed c diff was not able to be given then ordered ceftriaxone and vanco after CT scan Consult Healthcare Provider Management of the patient was discussed with: Hospitalist (will admit) Lab Data [facility] Lab Attestation statement: I reviewed the patient's lab results. 12/12/23 11:27 12/12/23 11:27 Labs: Lab Results 12/12/23 12/12/23 12/12/23 Range/Units 10:59 11:27 11:28 WBC 17.1 H (4.8-10.8) X10*3/uL RBC 4.98 (4.60-5.80) X10*6/uL Hgb 14.3 (14.0-18.0) g/dl Hct 43.6 (42.0-52.0) % MCV 87.6 (80.0-98.0) fL MCH 28.7 (27.0-33.0) pg MCHC 32.8 (31.0-36.0) g/dl RDW 13.2 (11.0-16.0) % Plt Count 253 D (160-400) X10*3/uL MPV 10.3 (9.4-12.4) fL Immature Gran % (Auto) 0.7 H (0.0-0.4) % Neut % (Auto) 83.3 H (45-73) % Lymph % (Auto) 10.6 L (20-40) % [place] % (Auto) 3.2 (2-11) % Eos % (Auto) 1.9 (0-4) % Baso % (Auto) 0.3 (0-2) % Lymph # (Auto) 1.8 (1.2-4.9) X10*3/uL [place] # (Auto) 0.6 (0.1-1.2) X10*3/uL Eos # (Auto) 0.3 (0.0-0.4) X10*3/uL Baso # (Auto) 0.1 (0.0-0.2) X10*3/uL Abs Immat Gran (auto) 0.12 H (0.00-0.03) X10*3/uL Absolute Neuts (auto) 14.3 H (2.0-8.3) x10*3/uL Absolute Nucleated RBC 0.000 (0.0-0.012) X10*3/uL Nucleated RBC % (auto) 0.0 (0.0-0.2) /100WBC Sodium 141 (135-145) mmol/L Potassium 4.3 (3.3-5.1) mmol/L Chloride 105 (96-108) mmol/L Carbon Dioxide 26 (22-29) mmol/L Anion Gap 14 (12-20) BUN 12 (9-16) mg/dL Creatinine 1.06 (0.5-1.4) mg/dL Estim Creat Clear Calc 63.6 Estimated GFR > 60 Random Glucose 134 H (60-115) mg/dL Lactic Acid 3.7 H* (0.5-2.0) mmol/L Calcium 9.7 (8.4-10.2) mg/dL Magnesium 2.0 (1.6-2.6) mg/dL Total Bilirubin 0.7 (0.0-1.0) mg/dL Direct Bilirubin 0.3 (0.0-0.5) mg/dL AST 26 (5-37) U/L ALT 12 (0-40) U/L Alkaline Phosphatase 84 (39-117) U/L Total Protein 8.1 H (6.5-8.0) g/dL Albumin 4.0 (3.5-5.0) g/dL Lipase 16 (8-78) U/L Stl C. cayetanensis PCR Not Detected (Not Detect.) Stool Rotavirus A PCR Not Detected (Not Detect.) Stl Adenov F 40/41 PCR Not Detected (Not Detect.) Stool Astrovirus (PCR) Not Detected (Not Detect.) Stool Campylobacter PCR Not Detected (Not Detect.) Stool Cryptosporidium PCR Not Detected (Not Detect.) Stl Sh Tox Pr E STEC PCR Not Detected (Not Detect.) Stool E coli O157 PCR Not applicable (Not Detect.) Stl Enterotoxigenic E PCR Not Detected (Not Detect.) Stool EPEC (PCR) Not Detected (Not Detect.) Stool EAEC (PCR) Not Detected (Not Detect.) Stl E. histolytica PCR Not Detected (Not Detect.) Stool Giardia Lamblia PCR Not Detected (Not Detect.) Stl P. shigelloides PCR Not Detected (Not Detect.) Stool Salmonella PCR Not Detected (Not Detect.) Stool Sapovirus (PCR) Not Detected (Not Detect.) Stl Shigella/EIEC PCR Not Detected (Not Detect.) St Y.enterocolitica PCR Not Detected (Not Detect.) Stool Vibrio (PCR) Not Detected (Not Detect.) Stl Vibrio cholerae PCR Not Detected (Not Detect.) Stl Norovirus GI/GII PCR Not Detected (Not Detect.) C. difficile Tox B Gene NEGATIVE (Negative) COVID-19 ([facility]) Negative (Negative) COVID-19 Clin Com See Note Independent Interpretation I performed an independent interpretation of an: EKG and CT Scan (colitis) Interpretation: Rate: 80 Rhythm: junctional PVCs [place]: normal Normal P waves. Normal MANISH. Normal QRS complex. ST T wave : nonspecific ST T wave changes no ENA qTC: 521 prior studies: artifact will repeat once he is not moving around The study has been interpreted contemporaneously by me. . Radiology Impression Discussion of test interpretation with radiology: I have reviewed the radiologist's reading. Independent Historian Clinical information obtained from an independent historian. History obtained from or confirmed by: EMS External Record Review External record reviewed: Inpatient record Critical Care Time Critical Care Time Critical Care Time: Yes Total Critical Care Time: 60 Attestation: IV fentanyl for pain improved pain, IVF x 2L, review of records, admission I attest to this time spent taking care of the patient Discharge Plan Discharge Clinical Impression: Colitis, Acidosis, lactic Diarrhea Qualifiers: Diarrhea type: presumed infectious Qualified Code(s): R19.7 - Diarrhea, unspecified Elevated WBC count Qualifiers: Leukocytosis type: unspecified Qualified Code(s): D72.829 - Elevated white blood cell count, unspecified Patient Disposition: Admitted As Inpatient Prescriptions: No Action methadone 5 mg tablet 5 mg PO TID PRN (Reason: Pain (Scale Score 4-6)) oxycodone 10 mg tablet 1 tab PO BID PRN (Reason: Pain) acetaminophen 325 mg Tablet 650 mg PO Q6H PRN (Reason: Headache/Pain Mild Scale (1-3)) Qty: 0 0RF trazodone 50 mg tablet 1 tab PO BEDTIME Qty: 30 0RF nifedipine 90 mg tablet extended release 24hr 1 tab PO DAILY Qty: 30 0RF Hold Instructions: Resume on 04/28/23. hold and moniter blood pressure ,if consistently elevated consider adding nifedipine back. lisinopril 5 mg tablet 1 tab PO DAILY Qty: 30 0RF duloxetine [Cymbalta] 20 mg capsule,delayed release(DR/EC) 20 mg PO BID Qty: 60 0RF multivitamin with minerals Capsule 1 cap PO DAILY Qty: 30 0RF hydroxyzine HCl 25 mg tablet 25 mg PO QID Qty: 120 0RF docusate sodium [Colace] 100 mg capsule 100 mg PO BID 30 Days Qty: 60 0RF polyethylene glycol 3350 [Miralax] 17 gram/dose powder 17 g PO DAILY 30 Days Qty: 510 0RF Senokot Extra Strength 17.2 mg tablet 17.2 mg PO BID PRN (Reason: constipation) Qty: 30 0RF clonidine HCl 0.2 mg tablet 0.2 mg PO TID Xarelto 20 mg tablet 20 mg PO DAILY Qty: 30 0RF Rx Instructions: must administer with evening meal metoprolol tartrate 50 mg Tablet 50 mg PO BID Qty: 60 0RF Protocol: Hold for SBP/HR < HOLD for SBP < : 90 HOLD for HR < : 60
[2023-12-12] MEDS: fentaNYL citrate/PF 100 MCG/2 ML VIAL 50 MCG IVPUSH (10:43)
[2023-12-12] MEDS: ondansetron HCL 4 MG/2 ML VIAL IVPUSH ×2 (10:43→19:31)
[2023-12-12] MEDS: 0.9 % Sodium Chloride 1,000 ML 999 ML IV ×2 (10:43→10:46)
[2023-12-12 11:32] LABS: IDNOW Serial# 152EDE1D
[2023-12-12 11:33] LABS: MANUAL DIFF FLAG NO
[2023-12-12 11:33] LABS: COVID-19 Test Negative (Negative)
[2023-12-12 11:36] LABS: Basophils Absolute Auto 0.1 X10*3/uL (0.0-0.2); Basophils Percent Auto 0.3 % (0-2); Eosinophils Absolute Auto 0.3 X10*3/uL (0.0-0.4); Eosinophils Percent Auto 1.9 % (0-4); Hematocrit 43.6 % (42.0-52.0); Hemoglobin 14.3 g/dl (14.0-18.0); Imm Gran Abs Auto 0.12 X10*3/uL (0.00-0.03); Imm Gran Pct Auto 0.7 % (0.0-0.4); Lymphocytes Absolute Auto 1.8 X10*3/uL (1.2-4.9); Lymphocytes Percent Auto 10.6 % (20-40); Mean Corpuscular HGB Conc 32.8 g/dl (31.0-36.0); Mean Corpuscular Hemoglobin 28.7 pg (27.0-33.0); Mean Corpuscular Volume 87.6 fL (80.0-98.0); Mean Platelet Volume 10.3 fL (9.4-12.4); Monocytes Absolute Auto 0.6 X10*3/uL (0.1-1.2); Monocytes Percent Auto 3.2 % (2-11); Neutrophils Absolute Auto 14.3 x10*3/uL (2.0-8.3); Neutrophils Percent Auto 83.3 % (45-73); Platelet Count 253 X10*3/uL (160-400); Red Blood Count 4.98 X10*6/uL (4.60-5.80); Red Cell Distribution Width 13.2 % (11.0-16.0); White Blood Count 17.1 X10*3/uL (4.8-10.8)
[2023-12-12 11:48] LABS: Lactic Acid 3.7 mmol/L (0.5-2.0)
[2023-12-12 11:49] LABS: Alanine Aminotransferase 12 U/L (0-40); Alkaline Phosphatase 84 U/L (39-117); Anion Gap 14 (12-20); Aspartate Amino Transferase 26 U/L (5-37); Bilirubin Direct 0.3 mg/dL (0.0-0.5); Bilirubin Total 0.7 mg/dL (0.0-1.0); Blood Urea Nitrogen 12 mg/dL (9-16); Calcium 9.7 mg/dL (8.4-10.2); Carbon Dioxide 26 mmol/L (22-29); Chloride 105 mmol/L (96-108); Creatinine Clr Calc Pharmacy 63.6; Estimated Glomerular Filt Rate > 60; Glucose Random 134 mg/dL (60-115); Lipase 16 U/L (8-78); Potassium 4.3 mmol/L (3.3-5.1); Sodium 141 mmol/L (135-145); Total Protein 8.1 g/dL (6.5-8.0)
--- NOTE | 2023-12-12 12:07 | PC.NURSE ---
assumed care of pt at 1100, per prior RN pt had numerous bowel movements w very large quantities of liquid/semi formed stool/mucus. tech having difficulty obtaining labs, additional 20G IV placed R AC, labs drawn. delay in pt to CT d/t pt initially refusing d/t feeling too sick. RN went into room w endoscopy tech - pt agreeable to scan at this time. pt cleaned up from another semi formed bm and carine to CT.
[2023-12-12] MEDS: iohexoL 350 MG/ML 100 ML INFUS..BTL 85 ML IV (12:37)
[2023-12-12 12:43] LABS: Adenovirus F 40/41 Not Detected (Not Detect.); Astrovirus Not Detected (Not Detect.); Campylobacter Not Detected (Not Detect.); Cryptosporidium Not Detected (Not Detect.); Cyclospora cayetanensis Not Detected (Not Detect.); E. coli EAEC Not Detected (Not Detect.); E. coli EPEC Not Detected (Not Detect.); E. coli ETEC Not Detected (Not Detect.); E. coli STEC Not Detected (Not Detect.); Entamoeba histolytica Not Detected (Not Detect.); Giardia lamblia Not Detected (Not Detect.); Norovirus GI/GII Not Detected (Not Detect.); Plesiomonas shigelloides Not Detected (Not Detect.); Rotavirus A Not Detected (Not Detect.); Salmonella Not Detected (Not Detect.); Sapovirus Not Detected (Not Detect.); Shigella sp./EIEC Not Detected (Not Detect.); Vibrio Not Detected (Not Detect.); Vibrio Cholerae Not Detected (Not Detect.); Yersinia enterocolitica Not Detected (Not Detect.)
[2023-12-12 13:06] LABS: CDiff Gene PCR NEGATIVE (Negative)
--- NOTE | 2023-12-12 13:06 | PC.NURSE ---
oral abx held d/t pt vomiting, provider aware.
[2023-12-12 13:31] LABS: Reflex Lactate? Lactic Acid Added
[2023-12-12] MEDS: metroNIDAZOLE/NS 500 MG/100 ML PIGGYBACK 100 MG IV ×2 (14:03→21:00)
[2023-12-12] MEDS: cefTRIAXone sodium 1 GM in 0.9 % Sodium Chloride 50 ML IV (14:03)
--- NOTE | 2023-12-12 14:10 | PM.IMHP ---
History of Present Illness Date of Service: 12/12/23 Attending physician on admission: Timmy Barnes Chief Complaint: Diarrhea, abdominal pain Pt is a 68-year-old male with a PMH significant for?paroxysmal AFib on Xarelto, ventricular arrhythmia with AICD, HTN, chronic back pain on chronic opioids, personality disorder, and MDD who presents to the ED from [facility] for evaluation of intractable diarrhea since this morning. Patient states symptoms began yesterday when he started feeling nauseous. Earlier today began feeling lower abdominal pain, had 2 episodes of vomiting, and then started experiencing intractable diarrhea. Upon arrival to the ED, pt apparently had such a large amount of liquid stool in his pants that it poured off the EMS stretcher like a waterfall . He denies hemoptysis or hematemesis. Patient states normally he has constipation likely from being on chronic opioids. Normally has stool every couple of days. States last regular stool was 2-3 days ago. Denies sick contacts, eating anything suspicious, or taking more laxatives than prescribed.. Denies right upper quadrant pain. Denies chest pain/pressure, palpitations. No shortness of breath. Has chronic headache that is worse than normal. During interview patient endorsed vague SI, stating that he had nothing to live for and wishes that he would . Patient lives alone and is twice . Reports having no family or friends. Also reports previous suicide attempt by cutting left wrist/forearm. Denies any current plan. ? In the ED pt's vitals WNL. Labs were significant for leukocytosis of 17.1 and lactic acid 3.7, otherwise grossly unremarkable. No electrolyte abnormalities. Creatinine mildly elevated at 1.06. Hepatic function at baseline. GI panel negative. C diff negative. CT of abdomen and pelvis found diffuse mural thickening involving the rectum, sigmoid, descending, and ascending colon suggestive of inflammatory or infectious colitis. Also found mild intrahepatic and extrahepatic ductal dilation with a punctate calcification versus stone in the mid CBD. EKG demonstrated accelerated junctional rhythm with occasional PVCs. Pt was treated with IVF, ondansetron, fentanyl, ceftriaxone, and metronidazole. Pt will be admitted to the hospital for treatment and further evaluation of acute colitis. Review of Systems Review of Systems: Lower abdominal pain Intractable diarrhea Nausea, vomiting Headache Chronic back and neck pain Denies chest pain/pressure, palpitations No shortness of breath Denies fever, chills [facility] Medical History History of intravenous drug abuse Presence of combination internal cardiac defibrillator (ICD) and pacemaker Ventricular arrhythmia Opioid dependence Lumbar disc herniation Thoracic disc herniation Cervical disc herniation Opioid abuse Pacemaker HTN (hypertension) Family History Mother HTN (hypertension) CHF (congestive heart failure) Surgical History History of spinal fusion History of hip replacement Social History Household Members: None Household Members Other:: lives in a rooming home, no family just other tenants Housing: Other Housing Other:: [facility] ,room house Do you presently have visiting nurse or other home services: No Unable to assess alcohol history related to: Unknown Alcohol intake: never Patient Tobacco Use Status: Never used Tobacco Smoked in Last 30 Days: No Second Hand Smoke Exposure: No Use of substances other than those prescribed or required for medical reasons: No Substance Use Type: Heroin Currently Displaying Signs/Symptoms of Drug Intoxication Withdrawal: No Have you been hit, kicked, punched, or otherwise hurt by someone within the past year? If so, by whom?: No Do you feel safe in your current relationship?: No Current Relationship Is there a partner from a previous relationship who is making you feel unsafe now?: No Are you made to feel afraid or neglected: No Advance Directives: No Advance Directives Information Provided: Yes Do you have thoughts of harming others: None Do you have a plan to hurt others: No Plan Recently lost weight without trying: No How much weight loss: Unsure Eating poorly because of decreased appetite: Yes Nutrition screen score: 3 Nutrition Risks: Poor intake 0-25% >4 days service: No Current occupational status: retired and disabled Sexual orientation: Straight/Heterosexual Meds Allergies Allergy/AdvReac Type Severity Reaction Status Date / Time ergotamine [ERGOTAMINE] AdvReac Severe NAUSEA Verified 04/12/23 20:41 Active Medications: Current Medications Metronidazole (Flagyl) 500 mg in 100 mls @ 100 mls/hr IV ONCE ONE Stop: 12/12/23 14:34 Last Admin: 12/12/23 14:03 Dose: 100 mls/hr Home Medications Medication Instructions Recorded Confirmed Last Taken Type methadone 5 mg tablet 5 mg PO TID PRN Pain (Scale Score 10/21/22 12/12/23 Unknown History 4-6) oxycodone 10 mg tablet 1 tab PO BID PRN Pain 10/21/22 12/12/23 Unknown History clonidine HCl 0.2 mg tablet 0.2 mg PO TID 04/12/23 12/12/23 Unknown History docusate sodium 100 mg capsule 100 mg PO BID PRN Constipation 12/12/23 12/12/23 Unknown History (Colace) hydroxyzine HCl 25 mg tablet 25 mg PO QID PRN anxiety/insomnia 12/12/23 12/12/23 Unknown History Physical Exam Vital Signs and Narrative: Vital Signs: Last Vital Signs Temp 98.8 F 12/12/23 10:40 Pulse 74 12/12/23 11:31 Resp 12 12/12/23 11:31 BP 117/70 12/12/23 11:31 Pulse Ox 97 12/12/23 11:31 O2 Del Method Room Air 12/12/23 11:31 BMI result Body Mass Index 24.2 Constitutional: Alert, appears older than stated age, in no acute distress. Mental Status: Oriented to person, place and time. Eyes: Pupils are equal, round, and reactive to light. Ear, Nose, and Throat: Oropharynx clear, mucous membranes dry. Ears and nose without deformities. Trachea midline. Respiratory: Clear to auscultation bilaterally. No wheezing, rales, or rhonchi. Cardiovascular: S1, S2 regular. No murmurs, rubs, or gallops. Gastrointestinal: Abdomen soft, non-distended, with lower abd tenderness. Normal bowel sounds. Neurologic: Cranial nerves II-XII are grossly intact bilaterally. No focal neurological deficits. Moves all extremities spontaneously. Skin: Warm, dry. Musculoskeletal: No cyanosis or clubbing. Extremities: No edema. Psychiatric: Endorses vague SI. Results Labs 12/13/23 05:41 12/13/23 05:41 Labs: Laboratory Results - last 24 hr 12/12/23 12/12/23 12/12/23 10:59 11:27 11:28 MCV 87.6 MCH 28.7 MCHC 32.8 RDW 13.2 Plt Count 253 D MPV 10.3 Immature Gran % (Auto) 0.7 H Neut % (Auto) 83.3 H Lymph % (Auto) 10.6 L Scott % (Auto) 3.2 Eos % (Auto) 1.9 Baso % (Auto) 0.3 Lymph # (Auto) 1.8 Scott # (Auto) 0.6 Eos # (Auto) 0.3 Baso # (Auto) 0.1 Abs Immat Gran (auto) 0.12 H Absolute Neuts (auto) 14.3 H Absolute Nucleated RBC 0.000 Nucleated RBC % (auto) 0.0 Anion Gap 14 Estim Creat Clear Calc 63.6 Estimated GFR > 60 Random Glucose 134 H Lactic Acid 3.7 H* Calcium 9.7 Magnesium 2.0 Total Bilirubin 0.7 Direct Bilirubin 0.3 AST 26 ALT 12 Alkaline Phosphatase 84 Total Protein 8.1 H Albumin 4.0 Lipase 16 Stl C. cayetanensis PCR Not Detected Stool Rotavirus A PCR Not Detected Stl Adenov F 40/41 PCR Not Detected Stool Astrovirus (PCR) Not Detected Stool Campylobacter PCR Not Detected Stool Cryptosporidium PCR Not Detected Stl Sh Tox Pr E STEC PCR Not Detected Stool E coli O157 PCR Not applicable Stl Enterotoxigenic E PCR Not Detected Stool EPEC (PCR) Not Detected Stool EAEC (PCR) Not Detected Stl E. histolytica PCR Not Detected Stool Giardia Lamblia PCR Not Detected Stl P. shigelloides PCR Not Detected Stool Salmonella PCR Not Detected Stool Sapovirus (PCR) Not Detected Stl Shigella/EIEC PCR Not Detected St Y.enterocolitica PCR Not Detected Stool Vibrio (PCR) Not Detected Stl Vibrio cholerae PCR Not Detected Stl Norovirus GI/GII PCR Not Detected C. difficile Tox B Gene NEGATIVE COVID-19 ([facility]) Negative COVID-19 Clin Com See Note Imaging Radiologist's Impressions: Impressions Abdomen/Pelvis CT 12/12/23 12:37 IMPRESSION: 1. Diffuse mural thickening involving the rectum, sigmoid, descending and ascending colon suggestive of inflammatory or infectious colitis. There is a new finding since 09/17/2023 There is no pericolic fat stranding seen. 2. Mild intrahepatic and extrahepatic ductal dilatation with a punctate calcification versus stone in the mid CBD. This could be secondary to a migrated bowel stone into the distal CBD and not visualized on the scan. MRCP or ERCP can be performed. 3. Nonobstructive lower pole right renal calculi, stable. Bilateral renal cysts. 4. Ill-defined 5 mm nodule right lung base, stable. Fleischner guidelines were followed. Assessment and Plan (1) Colitis: Status: Acute Plan Pt is a 68-year-old male with a PMH significant for?paroxysmal AFib on Xarelto, ventricular arrhythmia with AICD, HTN, chronic back pain on chronic opioids, personality disorder, and MDD who presents to the ED from [facility] for evaluation of intractable diarrhea since this morning. Pt will be admitted to the hospital for treatment and further evaluation of acute colitis. Colitis Patient with copious, intractable liquid diarrhea, nausea and vomiting, lower abdominal pain x1 day CT with diffuse mural thickening involving rectum, sigmoid, descending, and ascending colon Inflammatory versus infectious Patient does not meet sepsis criteria: Leukocytosis, but no fever, tachycardia, or tachypnea Patient given IVF and started on broad-spectrum antibiotics in the ED Will treat with ceftriaxone and metronidazole, started 12/12/2023 Antiemetics and analgesics IVF Follow BMP Lactic acidosis Lactic acid 3.7 at time of presentation with repeat 2.2 Likely secondary to GI losses, not sepsis Patient given IVF in ED and started on maintenance fluids Question of CBD stone CT of abd/pelvis with mild intrahepatic and extrahepatic ductal dilation with punctate calcification versus stone in the mid CBD Will get RUQ ultrasound for better visualization Mood disorder with vague SI Patient states he does not want to live anymore and wishes he would No specific plan [facility] team eval once medically cleared Continue home meds Paroxysmal AFib Continue metoprolol, Xarelto Chronic back and pain Continue home methadone, oxycodone HTN Continue home antihypertensives DNR/DNI Attending:?Dr. Barnes DVT Prophylaxis: On Xarelto Pt will require a hospitalization of at least two nights for treatment of?acute colitis. Given patient's copious and intractable diarrhea upon presentation, patient required hospitalization for treatment with IV antibiotics, IVF, and close monitoring of labs to ensure no electrolyte abnormalities. Quality Stroke Does the patient have a stroke diagnosis?: No VTE Prior VTE?: No VTE Risk Level:: Medical - moderate - high VTE Device Contraindication: Treatment Not Indicated VTE Drug Contraindication: N/A - Med Ordered
[2023-12-12 14:27] LABS: Appearance Urine Clear; Color Urine Dark Yellow; Glucose Urine UA Negative (Negative); Leukocyte Esterase Urine Negative (Negative); Nitrite Urine Negative (Negative); Specific Gravity - Urine >= 1.030 (1.005-1.025); Urine Blood Negative (Negative); Urine Ketones Negative (Negative); Urine Protein Negative (Neg-Trace)
[2023-12-12 14:56] LABS: ~Lactic Acid-LAB USE ONLY 2.2 mmol/L (0.5-2.0)
--- NOTE | 2023-12-12 16:01 | PHA.MEDREC ---
Pharmacy Consult ? Medication Reconciliation Pharmacy has completed the medication reconciliation. Utilized patients claim history and spoke to patient to confirm meds.
[2023-12-12] MEDS: Morphine Sulfate 4 MG/ML CARTRIDGE IVPUSH ×2 (16:29→21:01)
[2023-12-12] MEDS: Prochlorperazine Edisylate 10 MG/2 ML VIAL 5 MG IVPUSH (16:30)
[2023-12-12 16:42] LABS: Cancel Lactic Acid Canceled
[2023-12-12] MEDS: 0.9 % Sodium Chloride 1,000 ML 100 ML IVCONT (19:26)
[2023-12-12] MEDS: cloNIDine HCL 0.2 MG TABLET PO (21:00)
[2023-12-12] MEDS: Metoprolol Tartrate 50 MG TABLET PO (21:00)
[2023-12-12] MEDS: traZODone HCL 50 MG TABLET PO (21:00)
[2023-12-12] MEDS: DULoxetine HCl 20 MG CAPSULE.DR PO (21:00)
[2023-12-13] MEDS: 0.9 % Sodium Chloride Flush 3 ML SYRINGE IVFLUSH ×3 (01:00→16:28)
[2023-12-13 04:00] VITALS: BP 103/61; PULSE 73; RESP 16; TEMP 36.4; O2SAT 96
[2023-12-13] MEDS: metroNIDAZOLE/NS 500 MG/100 ML PIGGYBACK 100 MG IV ×3 (04:26→20:29)
[2023-12-13] MEDS: oxyCODONE HCl Immed Release 5 MG TABLET 10 MG PO ×2 (04:26→20:28)
[2023-12-13] MEDS: 0.9 % Sodium Chloride 1,000 ML 100 ML IVCONT ×2 (04:27→12:21)
[2023-12-13 06:27] LABS: Hematocrit 32.1 % (42.0-52.0); Hemoglobin 10.7 g/dl (14.0-18.0); Mean Corpuscular HGB Conc 33.3 g/dl (31.0-36.0); Mean Corpuscular Hemoglobin 29.1 pg (27.0-33.0); Mean Corpuscular Volume 87.2 fL (80.0-98.0); Mean Platelet Volume 10.6 fL (9.4-12.4); Platelet Count 143 X10*3/uL (160-400); Red Blood Count 3.68 X10*6/uL (4.60-5.80); Red Cell Distribution Width 13.6 % (11.0-16.0); White Blood Count 7.9 X10*3/uL (4.8-10.8)
[2023-12-13 06:35] LABS: Anion Gap 9 (12-20); Blood Urea Nitrogen 10 mg/dL (9-16); Calcium 8.8 mg/dL (8.4-10.2); Carbon Dioxide 24 mmol/L (22-29); Chloride 113 mmol/L (96-108); Creatinine Clr Calc Pharmacy 88.7; Estimated Glomerular Filt Rate > 60; Glucose Random 92 mg/dL (60-115); Magnesium 1.9 mg/dL (1.6-2.6); Potassium 3.9 mmol/L (3.3-5.1); Sodium 142 mmol/L (135-145)
[2023-12-13 07:34] VITALS: BP 107/76; PULSE 71; RESP 20; TEMP 36.8; O2SAT 98
[2023-12-13] MEDS: NIFEdipine ER 90 MG TAB.ER.24 PO (08:33)
[2023-12-13] MEDS: lisinopriL 5 MG TABLET PO (08:33)
[2023-12-13] MEDS: Multivitamin TABLET 1 TAB PO (08:33)
[2023-12-13] MEDS: Metoprolol Tartrate 50 MG TABLET PO ×2 (08:34→20:28)
[2023-12-13] MEDS: cloNIDine HCL 0.2 MG TABLET PO ×3 (08:34→20:28)
[2023-12-13] MEDS: DULoxetine HCl 20 MG CAPSULE.DR PO ×2 (08:34→20:28)
[2023-12-13] MEDS: hydrOXYzine HCL 25 MG TABLET PO (08:35)
--- NOTE | 2023-12-13 12:43 | HO.PM.IMPN ---
Subjective Subjective Date of Service: 12/13/23 Interval History: seen and evaluated this morning feels better overall less diarrhea, no nausea wants to eat Review of Systems Review of Systems: Yes all other systems are reviewed and are negative Physical Exam Vital Signs: Vital Signs: Last Vital Signs Temp 98.2 F 12/13/23 07:34 Pulse 71 12/13/23 07:34 Resp 20 12/13/23 07:34 BP 107/76 12/13/23 07:34 Pulse Ox 98 12/13/23 07:34 O2 Del Method Room Air 12/13/23 07:34 BMI result Body Mass Index 24.2 Const: Other: Constitutional : Awake, interactive, not in distress Neck : Normal inspection, Supple Cardiovascular : RRR, no JVP, no lower extremity edema Respiratory : good bilateral air entry, no crackles, wheezes or rhonchi Gastrointestinal: soft, lax, Normal bowel sounds, mild generalized tenderness Skin : Warm, Dry Neurological : Alert & oriented x3, No focal deficit Objective Data Active Medications Acetaminophen (Acetaminophen 325 Mg Tablet) 650 mg PO Q6H PRN PRN Reason: Pain, Mild (Pain Scale 1-3) Clonidine HCl (Clonidine Hcl 0.2 Mg Tablet) 0.2 mg PO TID [facility]; Protocol Last Admin: 12/13/23 08:34 Dose: 0.2 mg Documented By: MAGNOLIA Duloxetine HCl (Duloxetine Hcl 20 Mg Capsule.Dr) 20 mg PO BID [facility] Last Admin: 12/13/23 08:34 Dose: 20 mg Documented By: MAGNOLIA Hydroxyzine HCl (Hydroxyzine Hcl 25 Mg Tablet) 25 mg PO QID PRN PRN Reason: anxiety/insomnia Last Admin: 12/13/23 08:35 Dose: 25 mg Documented By: MAGNOLIA Sodium Chloride (Ns) 1,000 mls @ 100 mls/hr IVCONT .Q10H [facility] Last Admin: 12/13/23 12:21 Dose: 100 mls/hr Documented By: MAGNOLIA Ceftriaxone Sodium 1 gm/ (Sodium Chloride) 50 mls @ 100 mls/hr IV Q24H [place] Metronidazole (Flagyl) 500 mg in 100 mls @ 100 mls/hr IV Q8H [facility] Last Admin: 12/13/23 12:18 Dose: 100 mls/hr Documented By: MAGNOLIA Lisinopril (Lisinopril 5 Mg Tablet) 5 mg PO DAILY [facility]; Protocol Last Admin: 12/13/23 08:33 Dose: 5 mg Documented By: MAGNOLIA Methadone HCl (Methadone Hcl 5 Mg Tablet) 5 mg PO TID PRN PRN Reason: Pain, Moderate(Pain Scale 4-6) Metoprolol Tartrate (Metoprolol Tartrate 50 Mg Tablet) 50 mg PO BID [facility]; Protocol Last Admin: 12/13/23 08:34 Dose: 50 mg Documented By: MAGNOLIA Morphine Sulfate (Morphine Sulfate 4 Mg/Ml Cartridge) 4 mg IVPUSH Q4H PRN; Protocol PRN Reason: Pain, Severe (Pain Scale 7-10) Last Admin: 12/12/23 21:01 Dose: 4 mg Documented By: CARLOS Multivitamins/Vitamin C (Multivitamin Tablet) 1 tab PO DAILY [facility] Last Admin: 12/13/23 08:33 Dose: 1 tab Documented By: MAGNOLIA Nifedipine (Nifedipine Er 90 Mg Tab.Er.24) 90 mg PO DAILY [facility]; Protocol Last Admin: 12/13/23 08:33 Dose: 90 mg Documented By: MAGNOLIA Ondansetron HCl (Ondansetron Hcl 4 Mg/2 Ml Vial) 4 mg IVPUSH Q8H PRN PRN Reason: Nausea and Vomiting Last Admin: 12/12/23 19:31 Dose: 4 mg Documented By: CARLOS Oxycodone HCl (Oxycodone Hcl Immed Release 5 Mg Tablet) 10 mg PO BID PRN PRN Reason: Pain, Moderate(Pain Scale 4-6) Last Admin: 12/13/23 04:26 Dose: 10 mg Documented By: MANUEL Polyethylene Glycol (Polyethylene Glycol 3350 17 Gm Powd.Pack) 17 gm PO DAILY [facility] Last Admin: 12/13/23 08:37 Dose: Not Given Documented By: MAGNOLIA Non-Admin Reason: Patient Refused Rivaroxaban (Rivaroxaban 20 Mg Tablet) 20 mg PO DAILY@1700 [facility] Sodium Chloride (0.9 % Sodium Chloride Flush 3 Ml Syringe) 3 ml IVFLUSH QSHIFT [facility] Last Admin: 12/13/23 08:34 Dose: 3 ml Documented By: MAGNOLIA Trazodone HCl (Trazodone Hcl 50 Mg Tablet) 50 mg PO BEDTIME [place] Last Admin: 12/12/23 21:00 Dose: 50 mg Documented By: CARLOS Labs 12/13/23 05:41 12/13/23 05:41 Labs: Laboratory Results - last 24 hr 12/12/23 12/12/23 12/12/23 10:59 14:16 14:35 MCV MCH MCHC RDW Plt Count MPV Absolute Nucleated RBC Nucleated RBC % (auto) Anion Gap Estim Creat Clear Calc Estimated GFR Random Glucose Lactic Acid F/U @ 2Hr 2.2 H* Calcium Magnesium Urine Color Dark Yellow Urine Appearance Clear Urine pH 5.0 Ur Specific [place] >= 1.030 H Urine Protein Negative Urine Glucose (UA) Negative Urine Ketones Negative Urine Blood Negative Urine Nitrite Negative Ur Leukocyte Esterase Negative Stl C. cayetanensis PCR Not Detected Stool Rotavirus A PCR Not Detected Stl Adenov F / PCR Not Detected Stool Astrovirus (PCR) Not Detected Stool Campylobacter PCR Not Detected Stool Cryptosporidium PCR Not Detected Stl Sh Tox Pr E STEC PCR Not Detected Stool E coli O157 PCR Not applicable Stl Enterotoxigenic E PCR Not Detected Stool EPEC (PCR) Not Detected Stool EAEC (PCR) Not Detected Stl E. histolytica PCR Not Detected Stool Giardia Lamblia PCR Not Detected Stl P. shigelloides PCR Not Detected Stool Salmonella PCR Not Detected Stool Sapovirus (PCR) Not Detected Stl Shigella/EIEC PCR Not Detected St Y.enterocolitica PCR Not Detected Stool Vibrio (PCR) Not Detected Stl Vibrio cholerae PCR Not Detected Stl Norovirus GI/GII PCR Not Detected C. difficile Tox B Gene NEGATIVE 12/13/23 05:41 MCV 87.2 MCH 29.1 MCHC 33.3 RDW 13.6 Plt Count 143 L D MPV 10.6 Absolute Nucleated RBC 0.000 Nucleated RBC % (auto) 0.0 Anion Gap 9 L Estim Creat Clear Calc 88.7 Estimated GFR > 60 Random Glucose 92 Lactic Acid F/U @ 2Hr Calcium 8.8 D Magnesium 1.9 Urine Color Urine Appearance Urine pH Ur Specific [place] Urine Protein Urine Glucose (UA) Urine Ketones Urine Blood Urine Nitrite Ur Leukocyte Esterase Stl C. cayetanensis PCR Stool Rotavirus A PCR Stl Adenov F 40/41 PCR Stool Astrovirus (PCR) Stool Campylobacter PCR Stool Cryptosporidium PCR Stl Sh Tox Pr E STEC PCR Stool E coli O157 PCR Stl Enterotoxigenic E PCR Stool EPEC (PCR) Stool EAEC (PCR) Stl E. histolytica PCR Stool Giardia Lamblia PCR Stl P. shigelloides PCR Stool Salmonella PCR Stool Sapovirus (PCR) Stl Shigella/EIEC PCR St Y.enterocolitica PCR Stool Vibrio (PCR) Stl Vibrio cholerae PCR Stl Norovirus GI/GII PCR C. difficile Tox B Gene Assessment and Plan (1) Elevated WBC count: Status: Acute (2) Diarrhea: Status: Acute (3) Acidosis, lactic: Status: Acute (4) Colitis: Status: Acute Plan Pt is a 68-year-old male with a PMH significant for?paroxysmal AFib on Xarelto, ventricular arrhythmia with AICD, HTN, chronic back pain on chronic opioids, personality disorder, and MDD who presents to the ED from [facility] for evaluation of intractable diarrhea since this morning. Pt will be admitted to the hospital for treatment and further evaluation of acute colitis. Acute infectious Colitis CT with diffuse mural thickening involving rectum, sigmoid, descending, and ascending colon IVF treat with ceftriaxone and metronidazole, started 12/12/2023 Antiemetics and analgesics Follow BMP Lactic acidosis Likely secondary to GI losses, not sepsis resolved Question of CBD stone CT of abd/pelvis with mild intrahepatic and extrahepatic ductal dilation with punctate calcification versus stone in the mid CBD US showed Cholelithiasis and possible acute cholecystitis. Multiple gallstones within the gallbladder lumen. Mild diffuse gallbladder wall thickening and a positive sonographic Quinn sign are noted in addition to cholelithiasis and are suggestive of acute cholecystitis. Surgery consult Mood disorder with vague SI Patient states he does not want to live anymore and wishes he would No specific plan [facility] team eval once medically cleared Continue home meds Paroxysmal AFib Continue metoprolol, Xarelto Chronic back and pain Continue home methadone, oxycodone HTN Continue home antihypertensives DNR/DNI Attending:?Dr. Barnes DVT Prophylaxis: On Xarelto Pt will require a hospitalization overnight for treatment of?acute colitis., patient required hospitalization for treatment with IV antibiotics, IVF pending specialist evaluation Quality Stroke Does the patient have a stroke diagnosis?: No VTE Prior VTE?: No VTE Risk Level:: Medical - moderate - high VTE Device Contraindication: Treatment Not Indicated VTE Drug Contraindication: N/A - Med Ordered
--- NOTE | 2023-12-13 13:07 | MHC.CM.PN ---
IMM 12/13. Pt self-care, lives at [facility] (no assistance). Pt will need assistance with transport at D/C. HCP declined, pt states he has no family or friends, and no one who could be his HCP. PCP: Dr. Travis Mcarthur
[2023-12-13] MEDS: cefTRIAXone sodium 1 GM in 0.9 % Sodium Chloride 50 ML IV (13:50)
[2023-12-13 16:00] VITALS: BP 103/66; PULSE 72; RESP 16; TEMP 36.8; O2SAT 95
[2023-12-13] MEDS: Rivaroxaban 20 MG TABLET PO (16:27)
[2023-12-13 17:34] VITALS: BP 128/82; PULSE 72; RESP 18; TEMP 36.4; O2SAT 93
[2023-12-13] MEDS: traZODone HCL 50 MG TABLET PO (20:28)
[2023-12-13] MEDS: methADONE HCl 5 MG TABLET PO (20:28)
[2023-12-13 22:00] VITALS: RESP 20
[2023-12-14] MEDS: 0.9 % Sodium Chloride 1,000 ML 100 ML IVCONT (01:08)
[2023-12-14] MEDS: metroNIDAZOLE/NS 500 MG/100 ML PIGGYBACK 100 MG IV (05:15)
[2023-12-14 08:00] VITALS: BP 152/89; PULSE 100; RESP 16; TEMP 36.4; O2SAT 96
[2023-12-14] MEDS: Multivitamin TABLET 1 TAB PO (08:10)
[2023-12-14] MEDS: cloNIDine HCL 0.2 MG TABLET PO (08:10)
[2023-12-14] MEDS: lisinopriL 5 MG TABLET PO (08:10)
[2023-12-14] MEDS: DULoxetine HCl 20 MG CAPSULE.DR PO (08:10)
[2023-12-14] MEDS: Metoprolol Tartrate 50 MG TABLET PO (08:10)
[2023-12-14] MEDS: NIFEdipine ER 90 MG TAB.ER.24 PO (08:10)
[2023-12-14] MEDS: 0.9 % Sodium Chloride Flush 3 ML SYRINGE IVFLUSH (08:12)
--- NOTE | 2023-12-14 10:03 | P.CONGS_ITS ---
History of Present Illness Consult details Consult date: 12/14/23 Requesting physician: Timmy Barnes Narrative: Aaron Hernandes is a 68-year-old male with a PMH significant for paroxysmal AFib on Xarelto, ventricular arrhythmia with AICD, HTN, chronic back pain on opioids who presents to the ED from assisted living for evaluation of intractable diarrhea. His symptoms began the day before presentation when he started feeling nauseous. He then developed lower abdominal pain and had 2 episodes of vomiting followed by multiple episodes of diarrhea. Patient is normally constipated and normally has stool every couple of days. He denies sick contacts. Work up in the ED included CBC, BMP, LFTs which were significant for leukocytosis of 17.1 and lactic acid 3.7. GI panel and C diff negative. CT of abdomen and pelvis was performed and showed diffuse mural thickening involving the rectum, sigmoid, descending, and ascending colon. Pt was admitted to the hospital for treatment of acute colitis and was started on flagyl and rocephin. There was concern for acute cholecystitis and CBD dilatation with possible stone. ABD US was therefore performed which showed gallstones, distended gallbladder with diffuse wall thickening. General surgery was therefore consulted for possible acute cholecystitis. He feels improved this morning. He denies any RUQ pain. He denies further nausea or vomiting. Review of Systems 2 Constitutional: Constitutional: Denies chills and Denies fever(s) ENT: Denies dizziness Cardiovascular: Cardiovascular: Denies chest pain and Denies dyspnea Respiratory: Respiratory: Denies dyspnea Gastrointestinal: Gastrointestinal: Reports as per HPI, Reports abdominal pain, Denies melena, Denies hematochezia, Reports diarrhea, Reports nausea, Reports vomiting and Denies hematemesis Genitourinary: Genitourinary: Denies dysuria Integumentary/Breasts: Skin/Breast: Denies rash and Denies jaundice Neurologic: Denies dizziness [facility] Past Medical History Medical History History of intravenous drug abuse Presence of combination internal cardiac defibrillator (ICD) and pacemaker Ventricular arrhythmia Opioid dependence Lumbar disc herniation Thoracic disc herniation Cervical disc herniation Opioid abuse Pacemaker HTN (hypertension) Family History Family History Mother HTN (hypertension) CHF (congestive heart failure) Surgical History Surgical History History of spinal fusion History of hip replacement Social History Social History Household Members: None Household Members Other:: lives in a rooming home, no family just other tenants Housing: Other Housing Other:: [facility] ,room house Do you presently have visiting nurse or other home services: No Unable to assess alcohol history related to: Unknown Alcohol intake: never Patient Tobacco Use Status: Never used Tobacco Second Hand Smoke Exposure: No Substance Use Type: Heroin service: No Current occupational status: retired and disabled Sexual orientation: Straight/Heterosexual Meds Allergies Allergy/AdvReac Type Severity Reaction Status Date / Time ergotamine [ERGOTAMINE] AdvReac Severe NAUSEA Verified 04/12/23 20:41 Active Medications: Current Medications Acetaminophen (Acetaminophen 325 Mg Tablet) 650 mg PO Q6H PRN PRN Reason: Pain, Mild (Pain Scale 1-3) Clonidine HCl (Clonidine Hcl 0.2 Mg Tablet) 0.2 mg PO TID [facility]; Protocol Last Admin: 12/14/23 08:10 Dose: 0.2 mg Duloxetine HCl (Duloxetine Hcl 20 Mg Capsule.Dr) 20 mg PO BID [facility] Last Admin: 12/14/23 08:10 Dose: 20 mg Hydroxyzine HCl (Hydroxyzine Hcl 25 Mg Tablet) 25 mg PO QID PRN PRN Reason: anxiety/insomnia Last Admin: 12/13/23 08:35 Dose: 25 mg Ceftriaxone Sodium 1 gm/ (Sodium Chloride) 50 mls @ 100 mls/hr IV Q24H [facility] Last Infusion: 12/13/23 14:22 Dose: Infused Lisinopril (Lisinopril 5 Mg Tablet) 5 mg PO DAILY [facility]; Protocol Last Admin: 12/14/23 08:10 Dose: 5 mg Methadone HCl (Methadone Hcl 5 Mg Tablet) 5 mg PO TID PRN PRN Reason: Pain, Moderate(Pain Scale 4-6) Last Admin: 12/13/23 20:28 Dose: 5 mg Metoprolol Tartrate (Metoprolol Tartrate 50 Mg Tablet) 50 mg PO BID [facility]; Protocol Last Admin: 12/14/23 08:10 Dose: 50 mg Metronidazole (Metronidazole 500 Mg Tablet) 500 mg PO Q8H [facility] Morphine Sulfate (Morphine Sulfate 4 Mg/Ml Cartridge) 4 mg IVPUSH Q4H PRN; Protocol PRN Reason: Pain, Severe (Pain Scale 7-10) Last Admin: 12/12/23 21:01 Dose: 4 mg Multivitamins/Vitamin C (Multivitamin Tablet) 1 tab PO DAILY [facility] Last Admin: 12/14/23 08:10 Dose: 1 tab Nifedipine (Nifedipine Er 90 Mg Tab.Er.24) 90 mg PO DAILY [facility]; Protocol Last Admin: 12/14/23 08:10 Dose: 90 mg Ondansetron HCl (Ondansetron Hcl 4 Mg/2 Ml Vial) 4 mg IVPUSH Q8H PRN PRN Reason: Nausea and Vomiting Last Admin: 12/12/23 19:31 Dose: 4 mg Oxycodone HCl (Oxycodone Hcl Immed Release 5 Mg Tablet) 10 mg PO BID PRN PRN Reason: Pain, Moderate(Pain Scale 4-6) Last Admin: 12/13/23 20:28 Dose: 10 mg Polyethylene Glycol (Polyethylene Glycol 3350 17 Gm Powd.Pack) 17 gm PO DAILY [facility] Last Admin: 12/14/23 08:20 Dose: Not Given Rivaroxaban (Rivaroxaban 20 Mg Tablet) 20 mg PO DAILY@1700 [facility] Last Admin: 12/13/23 16:27 Dose: 20 mg Sodium Chloride (0.9 % Sodium Chloride Flush 3 Ml Syringe) 3 ml IVFLUSH QSHIFT [facility] Last Admin: 12/14/23 08:12 Dose: 3 ml Trazodone HCl (Trazodone Hcl 50 Mg Tablet) 50 mg PO BEDTIME [facility] Last Admin: 12/13/23 20:28 Dose: 50 mg Home Medications Medication Instructions Recorded Confirmed Last Taken Type methadone 5 mg tablet 5 mg PO TID PRN Pain (Scale Score 10/21/22 12/12/23 Unknown History 4-6) oxycodone 10 mg tablet 1 tab PO BID PRN Pain 10/21/22 12/12/23 Unknown History clonidine HCl 0.2 mg tablet 0.2 mg PO TID 04/12/23 12/12/23 Unknown History docusate sodium 100 mg capsule 100 mg PO BID PRN Constipation 12/12/23 12/12/23 Unknown History (Colace) hydroxyzine HCl 25 mg tablet 25 mg PO QID PRN anxiety/insomnia 12/12/23 12/12/23 Unknown History Physical Exam 2 Vital Signs: Vital Signs: Last Vital Signs Temp 97.6 F 12/14/23 08:00 Pulse 100 12/14/23 08:00 Resp 16 12/14/23 08:00 BP 152/89 H 12/14/23 08:00 Pulse Ox 96 12/14/23 08:00 O2 Del Method Room Air 12/14/23 08:00 BMI result Body Mass Index 24.2 Const: General: comfortable, no acute distress and alert O rientation/consciousness: patient oriented x3 Resp: Effort & Inspection: normal respiratory effort GI: Inspection: No distended Palpation (GI): Soft to palpation, Tenderness to palpation present (GI) in the LLQ; not in the RUQ and Quinn's sign negative, no guarding and not rigid Percussion: Yes normal to percussion Skin: General skin exam: no rashes or lesions noted and no jaundice Neuro: General: patient oriented x3 and moves all extremities Results Labs 12/13/23 05:41 12/13/23 05:41 Labs: Urine 12/12/23 Range/Units 14:16 Urine Color Dark Yellow Urine Appearance Clear Urine pH 5.0 (5.0-9.0) Ur Specific [place] >= 1.030 H (1.005-1.025) Urine Protein Negative (Neg-Trace) mg/dL Urine Glucose (UA) Negative (Negative) mg/dL All other labs normal. Imaging Abdomen CT scan report/results: report reviewed and image reviewed Assessment and Plan (1) Colitis: Status: Acute Plan 68 year old male with PMH significant for paroxysmal AFib on Xarelto, ventricular arrhythmia with AICD, HTN, chronic back pain who presented to the ED with complaints of lower abdominal pain and diarrhea admitted to the hospitalist service for infectious colitis. He is on IV cefazolin and flagyl. He does have a distended gallbladder and diffuse wall thickening on imaging that suggests acute cholecystitis however his abd is benign and he has no RUQ tenderness and negative Quinn sign. Could be acute cholecystitis that is improving with IV antibiotics. Can continue supportive measures with further plan dependent on clinical course. Imaging also shows CBD dilatation however LFTs are normal. Will continue to follow. Procedures Date of Service Date of Service: 12/14/23
--- NOTE | 2023-12-14 10:40 | P.DS_ITS ---
DS: Providers Provider Date of Service: 12/14/23 Date of admission: 12/12/23 15:03 Primary care physician: Unknown Physician Consults: 12/13/23 12:45 Consult to General Surgery Routine Consulting Provider: [facility] Reason for consultation: reported cholecystitis on CT\US for eval and rec. 12/14/23 08:45 Consult to Care Team Routine Comment: Reason for consultation: Discharge planning, suicidal thoughts for clearance. DS: Diagnosis Discharge Diagnosis (1) Colitis: Status: Acute (2) Acidosis, lactic: Status: Acute (3) Diarrhea: Status: Acute (4) Elevated WBC count: Status: Acute DS: Summary Hospital Course Hospital Course: Admission note HPI Pt is a 68-year-old male with a PMH significant for?paroxysmal AFib on Xarelto, ventricular arrhythmia with AICD, HTN, chronic back pain on chronic opioids, personality disorder, and MDD who presents to the ED from [facility] for evaluation of intractable diarrhea since this morning. Patient states symptoms began yesterday when he started feeling nauseous. Earlier today began feeling lower abdominal pain, had 2 episodes of vomiting, and then started experiencing intractable diarrhea. Upon arrival to the ED, pt apparently had such a large amount of liquid stool in his pants that it poured off the EMS stretcher like a waterfall . He denies hemoptysis or hematemesis. Patient states normally he has constipation likely from being on chronic opioids. Normally has stool every couple of days. States last regular stool was 2-3 days ago. Denies sick contacts, eating anything suspicious, or taking more laxatives than prescribed.. Denies right upper quadrant pain. Denies chest pain/pressure, palpitations. No shortness of breath. Has chronic headache that is worse than normal. During interview patient endorsed vague SI, stating that he had nothing to live for and wishes that he would . Patient lives alone and is twice . Reports having no family or friends. Also reports previous suicide attempt by cutting left wrist/forearm. Denies any current plan. ? In the ED pt's vitals WNL. Labs were significant for leukocytosis of 17.1 and lactic acid 3.7, otherwise grossly unremarkable. No electrolyte abnormalities. Creatinine mildly elevated at 1.06. Hepatic function at baseline. GI panel negative. C diff negative. CT of abdomen and pelvis found diffuse mural thickening involving the rectum, sigmoid, descending, and ascending colon suggestive of inflammatory or infectious colitis. Also found mild intrahepatic and extrahepatic ductal dilation with a punctate calcification versus stone in the mid CBD. EKG demonstrated accelerated junctional rhythm with occasional PVCs. Pt was treated with IVF, ondansetron, fentanyl, ceftriaxone, and metronidazole. Pt will be admitted to the hospital for treatment and further evaluation of acute colitis. Hospital course # Acute infectious Colitis CT with diffuse mural thickening involving rectum, sigmoid, descending, and ascending colon. Treated with IVF along with antibiotics of ceftriaxone and metronidazole, started 12/12/2023 and Antiemetics and analgesics with good response over the course of hospital stay as pain and diarrhea resolved and he was able to tolerate diet with no complaints. Lactic acidosis on admission Likely secondary to GI losses, not sepsis. resolved. # Question of CBD stone and acute cholecystitis CT of abd/pelvis with mild intrahepatic and extrahepatic ductal dilation with punctate calcification versus stone in the mid CBD. abdominal US showed Cholelithiasis and possible acute cholecystitis. Multiple gallstones within the gallbladder lumen. Mild diffuse gallbladder wall thickening and a positive sonographic Quinn sign are noted in addition to cholelithiasis and are suggestive of acute cholecystitis. The patient had no RUQ pain or complaints. he did not spike fever during hospital stay. Surgery team evaluated the patient and did not find clinical\labratory findings to support acute cholecystitis finding. suggested continuation of supportive measures and antibiotics as it could be antibiotics responding cholecystitis. To follow with surgery as outpatient. # Mood disorder with SI Patient stated that he does not want to live anymore and wishes he would but has no plans now. Sitter was placed in his room. Evaluated by Care team who felt he was safe to discharge and will continue to visit at home. Continue Antibiotics as prescribed for 5 more days Zofran as needed for nausea come back to ER if worsening pain, fever or diarrhea Follow up with Dr Han from surgery as outpatient for futher evaluation of gallbladder abnormalities. Time Attestation Discharge coordination time: Greater than 30 minutes Quality: Safe Use of Opioids Does Pt have an Active Cancer Diagnosis on the Problem List?: No Quality: Stroke Does the patient have a stroke diagnosis?: No Physical Exam Vital Signs: Vital Signs: Last Vital Signs Temp 97.6 F 12/14/23 08:00 Pulse 100 12/14/23 08:00 Resp 16 12/14/23 08:00 BP 152/89 H 12/14/23 08:00 Pulse Ox 96 12/14/23 08:00 O2 Del Method Room Air 12/14/23 08:00 BMI result Body Mass Index 24.2 Const: Other: Constitutional : Awake, interactive, not in distress Neck : Normal inspection, Supple Cardiovascular : RRR, no JVP, no lower extremity edema Respiratory : good bilateral air entry, no crackles, wheezes or rhonchi Gastrointestinal: soft, lax, Normal bowel sounds, no quinn sign, no other surgical findings, no tenderness Skin : Warm, Dry Neurological : Alert & oriented x3, No focal deficit DS: Data Data Completed and Pending Labs on day of discharge: Preliminary micro results at discharge 12/12/23 11:30 Blood Culture - Preliminary Blood - Venous No growth after 24 hours. 12/12/23 11:27 Blood Culture - Preliminary Blood - Venous No growth after [address] scan - abdomen: Radiologist's impression: ITS Impressions Abdomen/Pelvis CT 12/12/23 12:37 IMPRESSION: 1. Diffuse mural thickening involving the rectum, sigmoid, descending and ascending colon suggestive of inflammatory or infectious colitis. There is a new finding since 09/17/2023 There is no pericolic fat stranding seen. 2. Mild intrahepatic and extrahepatic ductal dilatation with a punctate calcification versus stone in the mid CBD. This could be secondary to a migrated bowel stone into the distal CBD and not visualized on the scan. MRCP or ERCP can be performed. 3. Nonobstructive lower pole right renal calculi, stable. Bilateral renal cysts. 4. Ill-defined 5 mm nodule right lung base, stable. Fleischner guidelines were followed. Abdomen Ultrasound 12/12/23 16:04 IMPRESSION: *Cholelithiasis and possible acute cholecystitis. Multiple gallstones within the gallbladder lumen. Mild diffuse gallbladder wall thickening and a positive sonographic Quinn sign are noted in addition to cholelithiasis and are suggestive of acute cholecystitis. *Biliary duct dilatation. The common bile duct measures 9 mm in diameter and mild diffuse intrahepatic biliary duct dilatation is identified. No choledocholithiasis visualized. The distal common bile duct is not visualized and may be obscured from visualization by overlying bowel gas. Discharge Plan Discharge Anticipated Discharge Date/Time: 12/14/23 10:34 Patient Disposition: Home, Self-Care Discharge Diagnosis: Acute colitis Referrals: Physician,Unknown J [Physician] - 1 Week Discharge Medications: New metronidazole 500 mg Tablet 500 mg PO Q8H 5 Days Qty: 15 0RF cefuroxime axetil 500 mg tablet 500 mg PO BID Qty: 10 0RF ondansetron 4 mg tablet,disintegrating 4 mg PO Q8H PRN (Reason: nausea and vomiting) Qty: 10 0RF Continued methadone 5 mg tablet 5 mg PO TID PRN (Reason: Pain (Scale Score 4-6)) oxycodone 10 mg tablet 1 tab PO BID PRN (Reason: Pain) acetaminophen 325 mg Tablet 650 mg PO Q6H PRN (Reason: Headache/Pain Mild Scale (1-3)) Qty: 0 0RF trazodone 50 mg tablet 1 tab PO BEDTIME Qty: 30 0RF nifedipine 90 mg tablet extended release 24hr 1 tab PO DAILY Qty: 30 0RF Hold Instructions: Resume on 04/28/23. hold and moniter blood pressure ,if consistently elevated consider adding nifedipine back. lisinopril 5 mg tablet 1 tab PO DAILY Qty: 30 0RF duloxetine [Cymbalta] 20 mg capsule,delayed release(DR/EC) 20 mg PO BID Qty: 60 0RF multivitamin with minerals Capsule 1 cap PO DAILY Qty: 30 0RF polyethylene glycol 3350 [Miralax] 17 gram/dose powder 17 g PO DAILY 30 Days Qty: 510 0RF Senokot Extra Strength 17.2 mg tablet 17.2 mg PO BID PRN (Reason: constipation) Qty: 30 0RF clonidine HCl 0.2 mg tablet 0.2 mg PO TID Xarelto 20 mg tablet 20 mg PO DAILY Qty: 30 0RF Rx Instructions: must administer with evening meal metoprolol tartrate 50 mg Tablet 50 mg PO BID Qty: 60 0RF Protocol: Hold for SBP/HR < HOLD for SBP < : 90 HOLD for HR < : 60 docusate sodium [Colace] 100 mg capsule 100 mg PO BID PRN (Reason: Constipation) hydroxyzine HCl 25 mg tablet 25 mg PO QID PRN (Reason: anxiety/insomnia) Discharge Orders: Discharge Order (Routine); Ordered 12/14/23 Ordered By: Timym Barnes Diet: Advance to usual diet Activity on Discharge: As tolerated Stand Alone Forms: Patient Portal Discharge page Care Plan Goals: Read below Health Concerns: Read below Plan of Treatment: Read below Assessment: You were treated for infection of colon with IV antibiotics and fluids with good response over the course of hospital stay. Continue Antibiotics as prescribed for 5 more days Zofran as needed for nausea come back to ER if worsening pain, fever or diarrhea Follow up with Dr Han from surgery as outpatient for futher evaluation of gallbladder abnormalities. Discharge Date/Time: 12/14/23 11:37
--- NOTE | 2023-12-14 11:14 | MHC.CM.PN ---
DP: PT HAS BEEN MEDICALLY CLEARED FOR DC HOME, NO SERVICES. RESIDENT CHIEF DRAFTER AT [facility] NOTIFIED OF RETURN (CESILIA) . [facility] WILL TRANSPORT HOME.
[2023-12-14 11:30] VITALS: PULSE 136; O2SAT 98
--- NOTE | 2023-12-15 09:53 | P.CDIM_ITS ---
PROVIDER RESPONSE TEXT: To clarify, the appropriate diagnosis supported by the clinical indicators: Acute QUERY TEXT: PHYSICIAN'S DOCUMENTATION REQUEST Date of Query: 12/14/2023 08:37 AM EST Patient Name: Aaron Hernandes Admit Date: 12/12/2023 Dear Timmy Barnes, A review of the medical record indicates additional documentation may be needed. Please review below and update the documentation accordingly. Clinical Indicators: Progress notes: Plan - Lactic acidosis Likely secondary to GI losses, not sepsis resolved LA 2.2 Clarify which of the following accurately represents the acuity of the lactic acidosis: Acute Acute on chronic Other (explain) Clinically unable to determine (explain) Thank you, Aliyah Alexandre, CCS, CDIS Use of terms such as suspected, likely, concern for, or probable (associated with a specific diagnosi s that is being evaluated, monitored, or treated as if it exists) are acceptable and can be coded in the inpatient se tting, when documented at the time of discharge. Please use your independent medical judgment in providing your response. THIS QUERY IS PART OF THE PERMANENT MEDICAL RECORD
== END 2023-12-14 11:37 | disposition home or self-care (01) | DRG 392 ==
LOC: HO.ED 14:08 → HO.EDOVER 15:58 → HO.IMC 17:23 → HO.S3 12-13 16:12
PROVIDERS: Admitting Provider Student in an Organized Health Care Education/Training Program; Emergency Provider Emergency Medicine; PCP Internal Medicine; Visit Provider Student in an Organized Health Care Education/Training Program
DX: A09 Infectious gastroenteritis and colitis, unspecified (principal); E87.21 Acute metabolic acidosis; F11.20 Opioid dependence, uncomplicated; R45.851 Suicidal ideations; I47.0 Re-entry ventricular arrhythmia; I48.0 Paroxysmal atrial fibrillation; G89.29 Other chronic pain; F39 Unspecified mood [affective] disorder; K80.50 Calculus of bile duct without cholangitis or cholecystitis without obstruction; M54.9 Dorsalgia, unspecified; Z66 Do not resuscitate; Z20.822 Contact with and (suspected) exposure to COVID-19; Z98.1 Arthrodesis status; Z95.810 Presence of automatic (implantable) cardiac defibrillator; Z79.01 Long term (current) use of anticoagulants; Z79.899 Other long term (current) drug therapy; Z23 Encounter for immunization
CPT/HCPCS: 36415; 74177; 76705; 80048; 80076; 81003; 83605; 83690; 83735; 85025; 85027; 87040; 87493; 87507; 87635; 90471; 90686; 93005; 97162; 99221; 99285; J0696; J0737; J1836; J2270; J2405; J3010; Q9967; S9485

== ENCOUNTER → 2023-12-12 10:16 | Outpatient (BNV) | payer MEDICARE, SELFPAY | PROVIDERS: Admitting Provider Student in an Organized Health Care Education/Training Program; Emergency Provider Emergency Medicine; Visit Provider Internal Medicine | DX: R94.31 Abnormal electrocardiogram [ECG] [EKG] (principal) | CPT/HCPCS: 93010 ==

== ENCOUNTER → 2023-12-12 15:03 | Outpatient (BNV) | payer MEDICARE, SELFPAY | PROVIDERS: Admitting Provider Student in an Organized Health Care Education/Training Program; Emergency Provider Emergency Medicine; Visit Provider Physician Assistant Surgical | DX: K52.9 Noninfective gastroenteritis and colitis, unspecified (principal) | CPT/HCPCS: 99222 ==

== ENCOUNTER → 2023-12-12 15:03 | Outpatient (BNV) | payer MEDICARE, SELFPAY | PROVIDERS: Admitting Provider Student in an Organized Health Care Education/Training Program; Emergency Provider Emergency Medicine; Visit Provider Student in an Organized Health Care Education/Training Program | DX: K52.9 Noninfective gastroenteritis and colitis, unspecified (principal); E87.20 Acidosis, unspecified; D72.829 Elevated white blood cell count, unspecified | CPT/HCPCS: 99223; 99233; 99238 ==

== ENCOUNTER 2024-01-16 11:17 | Inpatient (IN) | payer MEDICARE, OTHER, SELFPAY ==
[2024-01-16] VITALS (7 sets, daily range): BP systolic 88–125; BP diastolic 50–78; PULSE 68–80; RESP 12–19; TEMP 36–36.5; O2SAT 93–96; BMI 24.5; BMI 24.9
--- NOTE | ~2024-01-16 | US_ITS ---
EXAMINATION: US ABDOMEN LIMITED CLINICAL INFORMATION: Abdomen pain, leukocytosis. COMPARISON: Report of previous ultrasound thyroid 08/21/24 TECHNIQUE: Real-time imaging of the right upper quadrant abdominal viscera. FINDINGS: The pancreas was not examined. LIVER: Portions of the liver were demonstrated while scanning the region of the gallbladder and biliary tree. GALLBLADDER: There are echogenic shadowing structures within the gallbladder consistent with gallstones. One of the stones measures 2.3 cm. There is no localized pericholecystic fluid. There is tenderness to transducer pressure over the gallbladder COMMON BILE DUCT: The common duct measures 0.8 cm in diameter. This is slightly greater than expected for patient age. No discrete duct calculus demonstrated RIGHT KIDNEY: Not examined FREE FLUID: None. US/US abdomen limited IMPRESSION: Cholelithiasis. The common duct measures 0.8 cm which is slightly greater than expected but has not significantly increased. There is tenderness to transducer pressure over the gallbladder but no localized pericholecystic fluid. The patient should be managed on the basis of the clinical exam, history and laboratory values but cholecystitis could be present
--- NOTE | ~2024-01-16 | CT_ITS ---
EXAMINATION: CT ABDOMEN AND PELVIS WITHOUT CONTRAST CLINICAL INFORMATION: Abdomen pain. Nausea, vomiting, diarrhea COMPARISON: Portions of a previous study 12/12/23 TECHNIQUE: Multidetector volumetric imaging was performed from the superior aspect of the liver through the pubic symphysis. Sagittal and coronal reformatted images were obtained on the technologist's workstation. This CT examination was performed using dose optimization techniques as appropriate, variously including the following: *Automated exposure control *Adjustment of mA and/or kV according to patient size (this includes techniques or standardized protocols for targeted exams where dose is matched to indication/reason for exam; i.e. extremities or head) *Use of iterative reconstruction technique DLP: 497 mGy-cm FINDINGS: LUNG BASES: There is thickening of the visualized lower esophagus. There is metallic artifact related to cardiac leads. There is a 1.2 cm peripheral opacity in the posteromedial right lower lobe. There is a 1 cm pleural-based density in the posterior right lower lobe. There are some additional nonspecific lung base opacities. These were not present on 09/17/23. These are either new or increased when compared to 12/12/23. LIVER, GALLBLADDER, AND BILIARY TREE: No large focal liver lesion. Bowel interposes between the diaphragm and the liver. There are intermediate densities within the gallbladder perhaps noncalcified stones. There is a suggestion of a 0.4 cm calculus in or near the common bile duct. Similar appearance 09/17/23 PANCREAS: There are some calcifications present. The pancreas is somewhat atrophic. No large pancreatic mass or localized peripancreatic collection SPLEEN: No suspicious abnormality ADRENAL GLANDS: No suspicious abnormality KIDNEYS AND URETERS: There is no dilation of the urinary collecting system on either side. There are some small renal cysts which do not require any specific imaging follow-up. There is a nonobstructing 0.4 cm calculus in the lower pole right kidney 10.4 cm from the skin. BLADDER: Obscured by metallic artifact GASTROINTESTINAL TRACT: Portions are obscured by metallic artifact. There is a very large amount of fecal residue in the distal colon. There is marked gaseous distention of the proximal and transverse colon. There is no definite evidence of pneumoperitoneum. The stomach is distended. There are some fluid-filled distal small bowel loops. The thickening demonstrated in the colon on thyroid 08/21/24 is likely improved. The amount of fecal residue has markedly increased. ABDOMINAL WALL: No definite bowel hernia LYMPH NODES: No definite lymphadenopathy. No significant free intraperitoneal fluid VASCULAR: Atherosclerotic calcifications. No abdominal aortic aneurysm PELVIC VISCERA: Obscured by metallic artifact OSSEOUS STRUCTURES: Bilateral hip replacement. Healed right pubic fractures and healed rib fractures. Anterolisthesis of L5 upon S1 with narrowing of the spinal canal. Narrowing with endplate irregularity and vacuum phenomenon at L2/L3 CT/CT abdomen pelvis wo IV con IMPRESSION: Previously demonstrated distal colonic wall thickening has likely improved. Marked fecal residue in the colon. The proximal colon is distended. I suspect cholelithiasis and there is a calcification in or near the distal common bile duct. Small opacities in the right lower lung. Given the relatively rapid change infectious or inflammatory etiology is favored. Recommend short interval follow-up CT in 3 months. Fleischner guidelines were followed.
--- NOTE | 2024-01-16 11:36 | ECG_ITS ---
Test Reason : ABD PAIN Blood Pressure : / mmHG Vent. Rate : 077 BPM Atrial Rate : 163 BPM P-R Int : 000 ms QRS Dur : 092 ms QT Int : 484 ms P-R-T Axes : 075 066 136 degrees QTc Int : 547 ms Poor data quality Undetermined rhythm with frequent Premature ventricular complexes Nonspecific ST and T wave abnormality Abnormal ECG When compared with ECG of 12-DEC-2023 10:42, Poor data quality in current ECG precludes serial comparison Referred By: Alexis Whaley Electronically Signed By:BASSEM ZHOU MD
--- NOTE | 2024-01-16 11:39 | ED_ITS ---
HPI - Abdominal Pain General Chief Complaint: Abdominal Pain Stated Complaint: ABD PAIN/VOMITING Time Seen by Provider: 01/16/24 11:29 Source: patient, EMS and old records reviewed Mode of arrival: EMS Limitations: no limitations History of Present Illness HPI narrative: 65-year-old male with history of hypertension, history of arrhythmia with pacemaker in place, depression, and chronic pain disorder related to multiple herniated discs in the cervical, thoracic, and lumbar spine with history of lumbar spine fusion at C5-C6 as well as multiple jaw surgeries on oxycodone, history of IV drug abuser presented for evaluation of abdominal pain, with nausea and vomiting symptoms started since this morning, declined any exposure to bad food, sick contacts, or recent use of antibiotic. Multiple loose bowel movement brown in color with no blood in it. Related Data Home Medications Medication Instructions Recorded Confirmed methadone 5 mg tablet 5 mg PO TID PRN Pain (Scale Score 10/21/22 12/12/23 4-6) oxycodone 10 mg tablet 1 tab PO BID PRN Pain 10/21/22 12/12/23 clonidine HCl 0.2 mg tablet 0.2 mg PO TID 04/12/23 12/12/23 docusate sodium 100 mg capsule 100 mg PO BID PRN Constipation 12/12/23 12/12/23 (Colace) hydroxyzine HCl 25 mg tablet 25 mg PO QID PRN anxiety/insomnia 12/12/23 12/12/23 Previous Rx's Medication Instructions Recorded acetaminophen 325 mg tablet 650 mg (2 x 325 mg) PO Q6H PRN 10/28/22 Headache/Pain Mild Scale (1-3) #0 tabs lisinopril 5 mg tablet 1 tab PO DAILY #30 tabs 10/28/22 nifedipine 90 mg tablet,extended 1 tab PO DAILY #30 tabs 10/28/22 release 24 hr trazodone 50 mg tablet 1 tab PO BEDTIME #30 tabs 10/28/22 duloxetine 20 mg capsule,delayed 20 mg PO BID #60 caps 12/24/22 release (Cymbalta) multivitamin with minerals 1 cap PO DAILY #30 caps 12/31/22 metoprolol tartrate 50 mg tablet 50 mg PO BID #60 tabs 04/14/23 rivaroxaban 20 mg tablet (Xarelto) 20 mg PO DAILY #30 tabs 04/14/23 polyethylene glycol 3350 17 17 g PO DAILY 30 days #510 grams 07/19/23 gram/dose oral powder (Miralax) sennosides 17.2 mg tablet (Senokot 17.2 mg PO BID PRN constipation 07/19/23 Extra Strength) #30 tabs cefuroxime axetil 500 mg tablet 500 mg PO BID #10 tabs 12/14/23 metronidazole 500 mg tablet 500 mg PO Q8H 5 days #15 tabs 12/14/23 ondansetron 4 mg disintegrating 4 mg PO Q8H PRN nausea and 12/14/23 tablet vomiting #10 tabs Allergies Allergy/AdvReac Type Severity Reaction Status Date / Time ergotamine [ERGOTAMINE] AdvReac Severe NAUSEA Verified 04/12/23 20:41 Review of Systems Review of Systems All other systems are reviewed and are negative Constitutional: Reports as per HPI and Reports no additional constitutional complaints Eyes: Reports as per HPI and Reports no additional eye complaints Reports system reviewed and no additional complaints, except as documented Cardiovascular: Reports as per HPI and Reports no additional cardiovascular complaints Respiratory: Reports as per HPI and Reports no additional respiratory complaints Gastrointestinal: Reports as per HPI and Reports no additional gastrointestinal complaints Genitourinary: Reports no additional female genitourinary complaints Musculoskeletal: Reports no additional musculoskeletal complaints Skin/Breast: Reports system reviewed and no additional complaints, except as docu Psychiatric: Reports no additional psychiatric complaints Endocrine: Reports no additional endocrine complaints Hematologic/Lymphatic: Reports no additional hematologic/lymphatic complaints Allergic/Immunologic: Reports no additional allergic/immunologic complaints Reports system reviewed and no additional complaints, except as documented and Reports Abnormal speech present [facility] Past Medical History Medical History History of intravenous drug abuse Presence of combination internal cardiac defibrillator (ICD) and pacemaker Ventricular arrhythmia Opioid dependence Lumbar disc herniation Thoracic disc herniation Cervical disc herniation Opioid abuse Pacemaker HTN (hypertension) Surgical History History of spinal fusion History of hip replacement Family History Family History Mother HTN (hypertension) CHF (congestive heart failure) Social History Social History Household Members: None Household Members Other:: lives in a rooming home, no family just other tenants Housing: Other Housing Other:: [facility]room house Do you presently have visiting nurse or other home services: No Unable to assess alcohol history related to: Unknown Alcohol intake: never Patient Tobacco Use Status: Never used Tobacco Smoked in Last 30 Days: No Second Hand Smoke Exposure: No Substance Use Type: Heroin Advance Directives: No Advance Directives Information Provided: No service: No Current occupational status: retired and disabled Sexual orientation: Straight/Heterosexual Physical Exam ED Vital Signs: Vital Signs - 24 hr 01/16/24 11:31 01/16/24 12:08 01/16/24 13:13 Temperature 97.5 F 96.8 F Pulse Rate 71 68 74 Respiratory Rate 16 18 12 Blood Pressure 98/64 94/57 L 88/50 L Pulse Oximetry 96 95 93 Oxygen Delivery Method Nasal Cannula Nasal Cannula Nasal Cannula Oxygen Flow Rate 2 2 01/16/24 13:52 01/16/24 15:32 Temperature 97.0 F Pulse Rate 79 77 Respiratory Rate 16 18 Blood Pressure 108/66 125/73 Pulse Oximetry 94 96 Oxygen Delivery Method Room Air Room Air Oxygen Flow Rate BMI result Body Mass Index 24.5 Vital signs have been reviewed and appear to be correct. Blood pressure elevated. Heart rate normal. Respiratory rate normal. Temperature normal. Oxygen saturation normal. Appearance: Alert. Oriented X3. No acute distress. Head: Normal external exam. Normocephalic. Atraumatic. No Hawkins signs noted. No raccoon eyes noted Eyes: PERRLA. EOMI. Conjunctiva and sclera normal. Eyelids normal. ENT: TM's Normal. Pharynx normal. Uvula midline. Moist mucous membranes. No trismus noted. No drooling noted. No muffled voice noted. Neck: Normal inspection. Neck supple. FROM. No adenopathy. Thyroid Normal. No meningeal signs. No neck mass noted. CVS: Normal heart rate and rhythm. Heart sound normal. No murmurs noted. Pulses normal throughout. Respiratory: No respiratory distress. Painless inspiration. Breath sounds normal. No wheezes/rales/rhonchi noted. Chest nontender. No accessory muscle usage noted or decreased air movement noted. Abdomen: Diffuse abdominal tenderness, no rebound tenderness, no guarding. Bowel sounds normal in all 4 quadrants. No distention noted. No organomegaly noted. No visible injury noted. Back: No CVA tenderness. Full range of motion noted. Skin: Skin warm and dry. Normal skin color. Normal skin turgor. No rashes/lesions/lacerations noted. Extremities: No lower extremity edema. Extremities exhibit normal range of motion. Extremities nontender. Neuro: Oriented X 3. Cranial nerve exam: II-XII are grossly intact No motor deficit. No sensory deficit. Reflexes normal. Course Reevaluation(s) Reevaluation #1: Patient had a large bowel movement while in the emergency department with trying to get improvement of the abdominal pain patient is still complaining of severe abdominal pain after, CT scan was reviewed with Dr. Han and patient's symptoms is none surgical, leukocytosis and persistent of the abdominal pain will admit to medical floor for pain management and possible inpatient GI consultation if symptoms is not improving. CT is raising concern of cholelithiasis will consider limited abdominal ultrasound for further evaluation the case was signed out to Dr. Wagner. Time: 15:59 Medical Decision Making Differential Diagnosis Differential Diagnoses: The differential diagnosis associated with the presentation includes (SBO, ileus, constipation, colitis, diverticulitis, intractable abdominal pain, electrolyte derangement, severe anemia.) Admission/Observation Consideration of admission/observation: Escalation of care including admission/observation considered Consult Healthcare Provider Management of the patient was discussed with: Hospitalist (Christine Mccall) and Eligibility Technician (Dr. Han) Lab Data MDM Lab Attestation statement: I reviewed the patient's lab results. 01/16/24 11:42 01/16/24 11:42 Labs: Lab Results 01/16/24 01/16/24 Range/Units 11:40 11:42 WBC 17.3 H (4.8-10.8) X10*3/uL RBC 5.66 D (4.60-5.80) X10*6/uL Hgb 16.1 D (14.0-18.0) g/dl Hct 48.8 D (42.0-52.0) % MCV 86.2 (80.0-98.0) fL MCH 28.4 (27.0-33.0) pg MCHC 33.0 (31.0-36.0) g/dl RDW 13.0 (11.0-16.0) % Plt Count 289 D (160-400) X10*3/uL MPV 10.5 (9.4-12.4) fL Immature Gran % (Auto) 0.9 H (0.0-0.4) % Neut % (Auto) 87.0 H (45-73) % Lymph % (Auto) 9.6 L (20-40) % [place] % (Auto) 0.9 L (2-11) % Eos % (Auto) 1.4 (0-4) % Baso % (Auto) 0.2 (0-2) % Lymph # (Auto) 1.7 (1.2-4.9) X10*3/uL [place] # (Auto) 0.2 (0.1-1.2) X10*3/uL Eos # (Auto) 0.2 (0.0-0.4) X10*3/uL Baso # (Auto) 0.0 (0.0-0.2) X10*3/uL Abs Immat Gran (auto) 0.15 H (0.00-0.03) X10*3/uL Absolute Neuts (auto) 15.1 H (2.0-8.3) x10*3/uL Absolute Nucleated RBC 0.000 (0.0-0.012) X10*3/uL Nucleated RBC % (auto) 0.0 (0.0-0.2) /100WBC Sodium 137 (135-145) mmol/L Potassium 3.2 L (3.3-5.1) mmol/L Chloride 104 (96-108) mmol/L Carbon Dioxide 20 L (22-29) mmol/L Anion Gap 16 (12-20) BUN 15 (9-16) mg/dL Creatinine 1.51 H (0.5-1.4) mg/dL Estim Creat Clear Calc 41.6 Estimated GFR 46 Random Glucose 207 H (60-115) mg/dL Calcium 10.4 H D (8.4-10.2) mg/dL Total Bilirubin 1.0 (0.0-1.0) mg/dL Direct Bilirubin 0.4 (0.0-0.5) mg/dL AST 60 H (5-37) U/L ALT 20 (0-40) U/L Alkaline Phosphatase 561 H (39-117) U/L Troponin I High Sens < 2.7 (<3.5-35.0) ng/L Total Protein 8.4 H (6.5-8.0) g/dL Albumin 4.1 (3.5-5.0) g/dL Lipase 26 (8-78) U/L Influenza Type A (PCR) NEGATIVE (Negative) Influenza Type B (PCR) NEGATIVE (Negative) RSV RNA Qual (PCR) NEGATIVE (Negative) SARS-CoV-2 RNA (RT-PCR) NEGATIVE (Negative) Independent Interpretation I performed an independent interpretation of an: CT Scan (Abdomen pelvis:Previously demonstrated distal colonic wall thickening has likely improved. Marked fecal residue in the colon. The proximal colon is distended. I suspect cholelithiasis and there is a calcification in or near the distal common bile duct. Small opacities in the right lower lung. Gi) Radiology Impression Discussion of test interpretation with radiology: I have reviewed the radiologist's reading. Medications Administered Discontinued Medications Generic Name Dose Route Start Last Admin Trade Name Freq PRN Reason Stop Dose Admin Sodium Chloride 1,000 mls @ 999 mls/hr 01/16/24 11:36 01/16/24 13:16 Ns IV 01/16/24 12:36 Infused .Q1H1M ONE Infusion Loperamide HCl 2 mg 01/16/24 11:36 01/16/24 11:52 Loperamide Hcl 2 Mg Capsule PO 01/16/24 11:37 2 mg ONCE ONE Administration Morphine Sulfate 1 mg 01/16/24 11:36 01/16/24 11:51 Morphine Sulfate 2 Mg/Ml Cartridge IVPUSH 01/16/24 11:37 1 mg ONCE ONE Administration Protocol Morphine Sulfate 2 mg 01/16/24 13:24 01/16/24 13:50 Morphine Sulfate 2 Mg/Ml Cartridge IVPUSH 01/16/24 13:25 2 mg ONCE ONE Administration Protocol Ondansetron HCl 4 mg 01/16/24 11:36 01/16/24 11:52 Ondansetron Hcl 4 Mg/2 Ml Vial IVPUSH 01/16/24 11:37 4 mg ONCE ONE Administration Discharge Plan Discharge Clinical Impression: Intractable abdominal pain Patient Disposition: Admitted As Inpatient
[2024-01-16 11:47] LABS: MANUAL DIFF FLAG NO
[2024-01-16] MEDS: Morphine Sulfate 2 MG/ML CARTRIDGE 1 MG IVPUSH (11:51)
[2024-01-16] MEDS: Loperamide HCl 2 MG CAPSULE PO (11:52)
[2024-01-16] MEDS: ondansetron HCL 4 MG/2 ML VIAL IVPUSH ×2 (11:52→20:44)
[2024-01-16] MEDS: 0.9 % Sodium Chloride 1,000 ML 999 ML IV (11:52)
[2024-01-16 11:59] LABS: Basophils Percent Auto 0.2 % (0-2); Eosinophils Absolute Auto 0.2 X10*3/uL (0.0-0.4); Eosinophils Percent Auto 1.4 % (0-4); Hematocrit 48.8 % (42.0-52.0); Hemoglobin 16.1 g/dl (14.0-18.0); Imm Gran Abs Auto 0.15 X10*3/uL (0.00-0.03); Imm Gran Pct Auto 0.9 % (0.0-0.4); Lymphocytes Absolute Auto 1.7 X10*3/uL (1.2-4.9); Lymphocytes Percent Auto 9.6 % (20-40); Mean Corpuscular Hemoglobin 28.4 pg (27.0-33.0); Mean Corpuscular Volume 86.2 fL (80.0-98.0); Mean Platelet Volume 10.5 fL (9.4-12.4); Monocytes Absolute Auto 0.2 X10*3/uL (0.1-1.2); Monocytes Percent Auto 0.9 % (2-11); Neutrophils Absolute Auto 15.1 x10*3/uL (2.0-8.3); Platelet Count 289 X10*3/uL (160-400); Red Blood Count 5.66 X10*6/uL (4.60-5.80); White Blood Count 17.3 X10*3/uL (4.8-10.8)
[2024-01-16 12:04] LABS: Alanine Aminotransferase 20 U/L (0-40); Albumin Level 4.1 g/dL (3.5-5.0); Alkaline Phosphatase 561 U/L (39-117); Anion Gap 16 (12-20); Aspartate Amino Transferase 60 U/L (5-37); Bilirubin Direct 0.4 mg/dL (0.0-0.5); Blood Urea Nitrogen 15 mg/dL (9-16); Calcium 10.4 mg/dL (8.4-10.2); Carbon Dioxide 20 mmol/L (22-29); Chloride 104 mmol/L (96-108); Creatinine Clr Calc Pharmacy 41.6; Estimated Glomerular Filt Rate 46; Glucose Random 207 mg/dL (60-115); Lipase 26 U/L (8-78); Potassium 3.2 mmol/L (3.3-5.1); Sodium 137 mmol/L (135-145); Total Protein 8.4 g/dL (6.5-8.0)
[2024-01-16 12:12] LABS: Troponin-I High Sensitivity < 2.7 ng/L (<3.5-35.0)
[2024-01-16 12:41] LABS: Influenza A PCR NEGATIVE (Negative); Influenza B PCR NEGATIVE (Negative); Resp Syncy Virus RNA Qual PCR NEGATIVE (Negative); SARS COV2 PCR INHOUSE NEGATIVE (Negative)
[2024-01-16] MEDS: Morphine Sulfate 2 MG/ML CARTRIDGE IVPUSH ×2 (13:50→16:24)
--- NOTE | 2024-01-16 15:34 | PC.NURSE ---
patient had bowel movement, patient cleaned up, new linens and pads provided. VSS, respirations equal and unlabored, skin dry and intact
--- NOTE | 2024-01-16 16:42 | PM.IMHP ---
History of Present Illness Date of Service: 01/16/24 Chief Complaint: Abdominal pain Pt is a 68-year-old male with a PMH significant for?paroxysmal AFib on Xarelto, ventricular arrhythmia with AICD, HTN, chronic back pain on chronic opioids, personality disorder, and MDD who presents acute onset of abdominal pain since this morning. He describes severe abdominal pain, diffusely and assocated with diarrhea and vomitting, There is no fever, no sick contact and is not attributing it to food, no recent travel. He was in the hospital about a month ago with diarrhea and at that time was treated for colitis with antibiotics. WBC is 17K . A CT of the abdomen and pelvis is noted for residual colonic thickening said to be better than previous. Morphine, Zofran given for comfort. Review of Systems Review of Systems: Gen: no fever Resp: no sob, no cough CV: no chest, no HUBER, no leg edema GI: No n/v, no abd pain Neuro: No confusion Yes all other systems are reviewed and are negative [facility] Medical History History of intravenous drug abuse Presence of combination internal cardiac defibrillator (ICD) and pacemaker Ventricular arrhythmia Opioid dependence Lumbar disc herniation Thoracic disc herniation Cervical disc herniation Opioid abuse Pacemaker HTN (hypertension) Family History Mother HTN (hypertension) CHF (congestive heart failure) Surgical History History of spinal fusion History of hip replacement Social History Household Members: Other Household Members Other:: lives with other roommates Housing: Other Housing Other:: rents an rm in house Do you presently have visiting nurse or other home services: No Unable to assess alcohol history related to: Unknown Alcohol intake: never Patient Tobacco Use Status: Never used Tobacco Smoked in Last 30 Days: No Second Hand Smoke Exposure: No Substance Use Type: Marijuana Substance Use Frequency: Occasionally Last Used Substance: Days (ago) Currently Displaying Signs/Symptoms of Drug Intoxication Withdrawal: No Any prior treatment program specific to substance use: No Have you been hit, kicked, punched, or otherwise hurt by someone within the past year? If so, by whom?: No Do you feel safe in your current relationship?: Yes Is there a partner from a previous relationship who is making you feel unsafe now?: No Are you made to feel afraid or neglected: No Advance Directives: No Advance Directives Information Provided: No Do you have thoughts of harming others: None Do you have a plan to hurt others: No Plan Recently lost weight without trying: Unsure How much weight loss: Unsure Eating poorly because of decreased appetite: Yes Nutrition screen score: 5 Nutrition Risks: No Nutritional Risk Poor oral hygiene: No service: No Current occupational status: retired and disabled Sexual orientation: Straight/Heterosexual Meds Allergies Allergy/AdvReac Type Severity Reaction Status Date / Time ergotamine [ERGOTAMINE] AdvReac Severe NAUSEA Verified 04/12/23 20:41 Home Medications Medication Instructions Recorded Confirmed Last Taken Type methadone 5 mg tablet 5 mg PO TID Pain (Scale Score 4-6) 10/21/22 01/16/24 Unknown History oxycodone 10 mg tablet 1 tab PO BID PRN Pain 10/21/22 01/16/24 Unknown History clonidine HCl 0.2 mg tablet 0.2 mg PO TID 04/12/23 01/16/24 Unknown History hydroxyzine HCl 25 mg tablet 25 mg PO QID PRN anxiety/insomnia 12/12/23 01/16/24 Unknown History Physical Exam Vital Signs and Narrative: Vital Signs: Last Vital Signs Temp 97.0 F 01/16/24 15:32 Pulse 77 01/16/24 15:32 Resp 18 01/16/24 15:32 BP 125/73 01/16/24 15:32 Pulse Ox 96 01/16/24 15:32 O2 Del Method Room Air 01/16/24 15:32 O2 Flow Rate 2 01/16/24 13:13 Oxygen Flow Rate 2 01/16/24 11:31 BMI result Body Mass Index 24.5 Results Labs 01/17/24 05:39 01/17/24 05:39 Labs: Laboratory Results - last 24 hr 01/16/24 01/16/24 11:40 11:42 MCV 86.2 MCH 28.4 MCHC 33.0 RDW 13.0 Plt Count 289 D MPV 10.5 Immature Gran % (Auto) 0.9 H Neut % (Auto) 87.0 H Lymph % (Auto) 9.6 L [place] % (Auto) 0.9 L Eos % (Auto) 1.4 Baso % (Auto) 0.2 Lymph # (Auto) 1.7 [place] # (Auto) 0.2 Eos # (Auto) 0.2 Baso # (Auto) 0.0 Abs Immat Gran (auto) 0.15 H Absolute Neuts (auto) 15.1 H Absolute Nucleated RBC 0.000 Nucleated RBC % (auto) 0.0 Anion Gap 16 Estim Creat Clear Calc 41.6 Estimated GFR 46 Random Glucose 207 H Calcium 10.4 H D Total Bilirubin 1.0 Direct Bilirubin 0.4 AST 60 H ALT 20 Alkaline Phosphatase 561 H Troponin I High Sens < 2.7 Total Protein 8.4 H Albumin 4.1 Lipase 26 Influenza Type A (PCR) NEGATIVE Influenza Type B (PCR) NEGATIVE RSV RNA Qual (PCR) NEGATIVE SARS-CoV-2 RNA (RT-PCR) NEGATIVE Imaging Radiologist's Impressions: Impressions Abdomen/Pelvis CT 01/16/24 12:40 IMPRESSION: Previously demonstrated distal colonic wall thickening has likely improved. Marked fecal residue in the colon. The proximal colon is distended. I suspect cholelithiasis and there is a calcification in or near the distal common bile duct. Small opacities in the right lower lung. Given the relatively rapid change infectious or inflammatory etiology is favored. Recommend short interval follow-up CT in 3 months. Fleischner guidelines were followed. Assessment and Plan (1) Intractable abdominal pain: Status: Acute (2) Paroxysmal atrial fibrillation: Status: Acute (3) Colitis: Status: Resolved Plan 68-year-old male with a PMH significant for?paroxysmal AFib on Xarelto, ventricular arrhythmia with AICD, HTN, chronic back pain on chronic opioids, personality disorder, and MDD here with abdominal pain, n/v diarrhea with CT finding of colitis, was treated with infectious colitis about a month ago Colitis with n/v diarrhea, CT show persistent colonic wall thickening, given recent abx use one ought to be concern about cdif. check cdif, hydrate, pain medication, follow WBC, consider GI eval, IVF to keep well hydrated. Morphine for pain. Flagyl and Empiric PO Vanco for C dif. IVF to keep up with diarrhe Hypotension--that resolve not due to sepis, rather from dehydration from diarrhea Mood disorder no SI resume home meds Paroxysmal AFib Continue metoprolol, Xarelto Chronic back and pain Continue home methadone, oxycodone Elevated LFTs and ALK Phone--US of RUQ HTN Continue home antihypertensives DNR/DNI DVT Prophylaxis: On Xarelto Pt will require a hospitalization of at least two nights for treatment of?acute colitis, and intractable pain and need IV hydration and may need ABX depending of Cdif status Quality Stroke Does the patient have a stroke diagnosis?: No VTE Prior VTE?: No VTE Risk Level:: Medical - moderate - high VTE Device Contraindication: N/A - Device Ordered VTE Drug Contraindication: N/A - Med Ordered
[2024-01-16] MEDS: metroNIDAZOLE/NS 500 MG/100 ML PIGGYBACK 100 MG IV (17:25)
[2024-01-16] MEDS: Sodium Chloride 0.45 % 1,000 ML 100 ML IVCONT (18:28)
[2024-01-16] MEDS: vancomycin HCL 125 MG CAPSULE PO ×2 (18:31→23:43)
--- NOTE | 2024-01-16 18:44 | PHA.MEDREC ---
Pharmacy Consult ? Medication Reconciliation Pharmacy has completed the medication reconciliation. spoke with patient, he is a poor historian. He reports that he gets his medications delivered to him. When I asked him about methadone he said I take it as much as I can and says he uses oxycodone as needed. Used claim history to verify medication list.
--- NOTE | 2024-01-16 19:33 | PC.NURSE ---
this RN assumed care of pt, pt resting in stretcher, no acute distress noted at this time. pt denies pain at this time.
[2024-01-16 22:20] LABS: CDiff Gene PCR POSITIVE (Negative)
[2024-01-16 23:01] LABS: CDIFF Internal ctrl Dots and bkg OK (V); CDiff Toxin Negative (Negative)
[2024-01-16 23:52] LABS: Appearance Urine Clear; Color Urine Dark Yellow; Glucose Urine UA Negative (Negative); Leukocyte Esterase Urine Small (1+) (Negative); Nitrite Urine Positive (Negative); UMIC TRIGGER UACC YES; Urine Blood Negative (Negative); Urine Ketones Negative (Negative); Urine Protein 30 (1+) mg/dL (Neg-Trace)
[2024-01-17 00:01] LABS: Bacteria Urine None Seen (None Seen); RBC Urine 0-2 /HPF (0-2); UACC Culture Trigger YES; WBC Urine 0-5 /HPF (0-5)
[2024-01-17] MEDS: Metoclopramide HCl 10 MG/2 ML VIAL IVPUSH (02:03)
[2024-01-17] MEDS: Sodium Chloride 0.45 % 1,000 ML 100 ML IVCONT ×2 (03:41→11:57)
[2024-01-17] MEDS: HYDROmorphone HCl 1 MG/ML SYRINGE 0.5 MG IVPUSH ×4 (03:46→23:48)
[2024-01-17 03:53] VITALS: BP 132/64; PULSE 77; RESP 18; TEMP 36.3; O2SAT 94
--- NOTE | 2024-01-17 05:08 | PM.EVENT ---
Event Note Date of Service: 01/17/24 Event Note: Nurse reported pt with SI. he will try to drop out the window or find a piece of glass . Will consult ritika Time Spent With Patient Time: Total time managing care of this patient today ____ minutes.
[2024-01-17] MEDS: vancomycin HCL 125 MG CAPSULE PO (05:28)
[2024-01-17] MEDS: metroNIDAZOLE/NS 500 MG/100 ML PIGGYBACK 100 MG IV ×2 (05:31→17:02)
--- NOTE | 2024-01-17 05:45 | PC.NURSE ---
Approximately around 05:00, pt made an SI comment to this RN. Pt stated that he wanted to and that if he wasn't sick he will jump out the window or find a piece of glass. MD Stokes and Nursing Lens Grinder Rough made aware of the situation. New orders for 1:1 sitter and psych consult were placed by MD Stokes. 1:1 sitter at pt's bedside with bed in lowest position, bed alarm on, and call delgado within reach. Will continue to monitor pt's behavior.
[2024-01-17 06:31] LABS: Alanine Aminotransferase 32 U/L (0-40); Albumin Level 3.2 g/dL (3.5-5.0); Alkaline Phosphatase 661 U/L (39-117); Anion Gap 16 (12-20); Aspartate Amino Transferase 61 U/L (5-37); Bilirubin Total 0.6 mg/dL (0.0-1.0); Blood Urea Nitrogen 21 mg/dL (9-16); Calcium 8.9 mg/dL (8.4-10.2); Carbon Dioxide 21 mmol/L (22-29); Chloride 104 mmol/L (96-108); Creatinine Clr Calc Pharmacy 67.6; Estimated Glomerular Filt Rate > 60; Glucose Random 100 mg/dL (60-115); Potassium 4.5 mmol/L (3.3-5.1); Sodium 136 mmol/L (135-145); Total Protein 6.7 g/dL (6.5-8.0)
[2024-01-17 07:19] LABS: Hematocrit 44.6 % (42.0-52.0); Hemoglobin 15.1 g/dl (14.0-18.0); Mean Corpuscular HGB Conc 33.9 g/dl (31.0-36.0); Mean Corpuscular Hemoglobin 28.9 pg (27.0-33.0); Mean Corpuscular Volume 85.3 fL (80.0-98.0); Mean Platelet Volume 11.5 fL (9.4-12.4); Platelet Count 205 X10*3/uL (160-400); Red Blood Count 5.23 X10*6/uL (4.60-5.80); Red Cell Distribution Width 13.1 % (11.0-16.0); White Blood Count 18.9 X10*3/uL (4.8-10.8)
[2024-01-17 08:00] VITALS: BP 134/71; PULSE 77; RESP 18; TEMP 36.8; O2SAT 93
--- NOTE | 2024-01-17 08:18 | PM.PSYCN ---
History of Present Illness Date of Service: 01/17/2024 Chief Complaint: abdominal pain, diarrhea ? colitis Reason for Consult: Depression/SI Requesting physician: Elizabeth Stokes Discussed with referring provider: Yes (text) Sources of Information: patient interviewed and chart reviewed HPI Narrative: Pt is a 68-year-old male with a PMH significant for?paroxysmal AFib on Xarelto, ventricular arrhythmia with AICD, HTN, chronic back pain on chronic opioids, personality disorder, and MDD who presents acute onset of abdominal pain since this morning. He describes severe abdominal pain, diffusely and assocated with diarrhea and vomitting, There is no fever, no sick contact and is not attributing it to food, no recent travel. He was in the hospital about a month ago with diarrhea and at that time was treated for colitis with antibiotics. WBC is 17K . A CT of the abdomen and pelvis is noted for residual colonic thickening said to be better than previous. Morphine, Zofran given for comfort. He has expressed feelings of depression and suicidal ideations with no specific plans. He is known to me from previous contacts, last in 2021. He states that he has had a difficult life has dealt with a lot of medical problems including having no teeth. He lives alone. He has no family and no children. He has lost 2 wives. He has had previous psychiatric hospitalizations though he himself denied any. He has been on several antidepressants in the past with no benefits but did like the benefits from Klonopin. He is not on any psychotropics. When questioned about his suicidal ideations he stated that he has nothing to live for but denies any actual plans or intent. His last attempt was close to 5 years ago. Past Psychiatric History: IP: [facility] 03/23, 10/22 Judge: 05/21 [facility] [place] [facility] [place] None he reports Trials: Cymbalta Medical Evaluation Reviewed: Yes (Reviewed) Review of Systems Review of Systems Positive for abdominal pain, diarrhea, neck pain, back pain, vague suicidal ideations and depression Yes all other systems are reviewed and are negative [facility] Medical History History of intravenous drug abuse Presence of combination internal cardiac defibrillator (ICD) and pacemaker Ventricular arrhythmia Opioid dependence Lumbar disc herniation Thoracic disc herniation Cervical disc herniation Opioid abuse Pacemaker HTN (hypertension) Surgical History History of spinal fusion History of hip replacement Family History: Denies Social History: Born and raised in [place] Only child. poor social support common disability for more than 20 years, denies having children or any contact with collateral family. Loss of 2 wives. 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 Exercise used to be pt's outlet-with back, hip injuries he can no longer participate Hx of incarceration for drug related offenses x 2 States institutional structure helps him the most. Trauma History: Losses Diagnostics Vital Signs (24Hr): Vital Signs - 24 hr 01/16/24 11:31 01/16/24 12:08 01/16/24 13:13 Temperature 97.5 F 96.8 F Pulse Rate 71 68 74 Respiratory Rate 16 18 12 Blood Pressure 98/64 94/57 L 88/50 L Pulse Oximetry 96 95 93 Oxygen Delivery Method Nasal Cannula Nasal Cannula Nasal Cannula Oxygen Flow Rate 2 2 01/16/24 13:52 01/16/24 15:32 01/16/24 17:23 Temperature 97.0 F 97.2 F Pulse Rate 79 77 68 Respiratory Rate 16 18 16 Blood Pressure 108/66 125/73 120/78 Pulse Oximetry 94 96 96 Oxygen Delivery Method Room Air Room Air Room Air Oxygen Flow Rate 01/16/24 19:32 01/17/24 03:53 Temperature 97.7 F 97.3 F Pulse Rate 70 77 Respiratory Rate 19 18 Blood Pressure 124/74 132/64 Pulse Oximetry 94 94 Oxygen Delivery Method Room Air Room Air Oxygen Flow Rate BMI result Body Mass Index 24.9 Labs 01/17/24 05:39 01/17/24 05:39 Labs: Laboratory Results - last 48 hr 01/16/24 01/16/24 01/16/24 11:40 11:42 21:17 WBC 17.3 H RBC 5.66 D Hgb 16.1 D Hct 48.8 D MCV 86.2 MCH 28.4 MCHC 33.0 RDW 13.0 Plt Count 289 D MPV 10.5 Immature Gran % (Auto) 0.9 H Neut % (Auto) 87.0 H Lymph % (Auto) 9.6 L [place] % (Auto) 0.9 L Eos % (Auto) 1.4 Baso % (Auto) 0.2 Lymph # (Auto) 1.7 [place] # (Auto) 0.2 Eos # (Auto) 0.2 Baso # (Auto) 0.0 Abs Immat Gran (auto) 0.15 H Absolute Neuts (auto) 15.1 H Absolute Nucleated RBC 0.000 Nucleated RBC % (auto) 0.0 Hold Purple Top Sodium 137 Potassium 3.2 L Chloride 104 Carbon Dioxide 20 L Anion Gap 16 BUN 15 Creatinine 1.51 H Estim Creat Clear Calc 41.6 Estimated GFR 46 Random Glucose 207 H Calcium 10.4 H D Total Bilirubin 1.0 Direct Bilirubin 0.4 AST 60 H ALT 20 Alkaline Phosphatase 561 H Troponin I High Sens < 2.7 Total Protein 8.4 H Albumin 4.1 Lipase 26 Urine Color Urine Appearance Urine pH Ur Specific [place] Urine Protein Urine Glucose (UA) Urine Ketones Urine Blood Urine Nitrite Ur Leukocyte Esterase Urine RBC Urine WBC Ur Squamous Epith Cells Urine Bacteria Hyaline Casts C. difficile Tox B Gene POSITIVE A* C. difficile Toxin A&B Negative C. difficile Interpret SEE NOTE Influenza Type A (PCR) NEGATIVE Influenza Type B (PCR) NEGATIVE RSV RNA Qual (PCR) NEGATIVE SARS-CoV-2 RNA (RT-PCR) NEGATIVE 01/16/24 01/17/24 23:38 05:39 WBC 18.9 H RBC 5.23 Hgb 15.1 Hct 44.6 MCV 85.3 MCH 28.9 MCHC 33.9 RDW 13.1 Plt Count 205 D MPV 11.5 Immature Gran % (Auto) Neut % (Auto) Lymph % (Auto) [place] % (Auto) Eos % (Auto) Baso % (Auto) Lymph # (Auto) [place] # (Auto) Eos # (Auto) Baso # (Auto) Abs Immat Gran (auto) Absolute Neuts (auto) Absolute Nucleated RBC 0.000 Nucleated RBC % (auto) 0.0 Hold Purple Top SEE NOTE Sodium 136 Potassium 4.5 D Chloride 104 Carbon Dioxide 21 L Anion Gap 16 BUN 21 H Creatinine 0.93 Estim Creat Clear Calc 67.6 Estimated GFR > 60 Random Glucose 100 Calcium 8.9 D Total Bilirubin 0.6 Direct Bilirubin AST 61 H ALT 32 Alkaline Phosphatase 661 H Troponin I High Sens Total Protein 6.7 Albumin 3.2 L Lipase Urine Color Dark Yellow Urine Appearance Clear Urine pH 5.0 Ur Specific [place] 1.020 Urine Protein 30 (1+) H Urine Glucose (UA) Negative Urine Ketones Negative Urine Blood Negative Urine Nitrite Positive H Ur Leukocyte Esterase Small (1+) H Urine RBC 0-2 Urine WBC 0-5 Ur Squamous Epith Cells 3-5 Urine Bacteria None Seen Hyaline Casts 6-10 C. difficile Tox B Gene C. difficile Toxin A&B C. difficile Interpret Influenza Type A (PCR) Influenza Type B (PCR) RSV RNA Qual (PCR) SARS-CoV-2 RNA (RT-PCR) Imaging Radiology Impressions: ITS Impressions Abdomen/Pelvis CT 01/16/24 12:40 IMPRESSION: Previously demonstrated distal colonic wall thickening has likely improved. Marked fecal residue in the colon. The proximal colon is distended. I suspect cholelithiasis and there is a calcification in or near the distal common bile duct. Small opacities in the right lower lung. Given the relatively rapid change infectious or inflammatory etiology is favored. Recommend short interval follow-up CT in 3 months. Fleischner guidelines were followed. Abdomen Ultrasound 01/16/24 16:58 IMPRESSION: Cholelithiasis. The common duct measures 0.8 cm which is slightly greater than expected but has not significantly increased. There is tenderness to transducer pressure over the gallbladder but no localized pericholecystic fluid. The patient should be managed on the basis of the clinical exam, history and laboratory values but cholecystitis could be present Mental Status Exam Mental Status Exam Narrative: Mr. Hernaneds was seen in his room. He was laying comfortably on his bed. Speech is normal. No eye contact. Affect is appropriate, frustrated but varied. No signs of psychosis. He admits to not feeling that he has anything to live for and has had suicidal thoughts but denies any plans or intent. Cognitively he is grossly impaired to observation. Judgment is intact Medications Medications Current Medications Acetaminophen (Acetaminophen 325 Mg Tablet) 650 mg PO Q6H PRN PRN Reason: Pain, Mild (Pain Scale 1-3) Hydromorphone HCl (Hydromorphone Hcl 1 Mg/Ml Syringe) 0.5 mg IVPUSH Q6H PRN; Protocol PRN Reason: Pain, Severe (Pain Scale 7-10) Last Admin: 01/17/24 03:46 Dose: 0.5 mg Sodium Chloride (Sodium Chloride 0.45 %) 1,000 mls @ 100 mls/hr IVCONT .Q10H [place] Last Infusion: 03/17/24 06:33 Dose: 100 mls/hr Metronidazole (Flagyl) 500 mg in 100 mls @ 100 mls/hr IV Q12H [facility] Last Infusion: 01/17/24 06:33 Dose: Infused Melatonin (Melatonin 3 Mg Tablet) 6 mg PO BEDTIME PRN PRN Reason: Insomnia Ondansetron HCl (Ondansetron Hcl 4 Mg/2 Ml Vial) 4 mg IVPUSH Q8H PRN PRN Reason: Nausea and Vomiting Last Admin: 01/16/24 20:44 Dose: 4 mg Sodium Chloride (0.9 % Sodium Chloride Flush 3 Ml Syringe) 3 ml IVFLUSH QSHIFT [facility] Last Admin: 01/17/24 00:21 Dose: Not Given Vancomycin HCl (Vancomycin Hcl 125 Mg Capsule) 250 mg PO Q6H [facility] Allergies Allergies Allergy/AdvReac Type Severity Reaction Status Date / Time ergotamine [ERGOTAMINE] AdvReac Severe NAUSEA Verified 04/12/23 20:41 Assessment & Plan Assessment & Plan (1) MDD (major depressive disorder), recurrent episode, moderate: Status: Acute Code(s): F33.1 - Major depressive disorder, recurrent, moderate Plan Based on my evaluation of him today and knowledge of him from the past I would have recommended a retrial of Cymbalta which might also help with his chronic pain symptoms but he is not interested in that but was interested in Klonopin which I would not prescribe, given his history of substance abuse and he is aware of that. I do not think that he is in danger of acting on the suicidal ideations here. Outpatient referrals for therapy and support would be prudent. Thank you for the consultation Total time managing care of this patient today _45___ minutes. Patient educated on: diagnosis, medication risk/benefits and substance abuse
[2024-01-17] MEDS: Rivaroxaban 20 MG TABLET PO (10:19)
[2024-01-17] MEDS: cloNIDine HCL 0.1 MG TABLET PO ×3 (10:19→21:06)
[2024-01-17] MEDS: DULoxetine HCl 20 MG CAPSULE.DR PO ×2 (10:19→21:06)
[2024-01-17] MEDS: Metoprolol Tartrate 50 MG TABLET PO ×2 (10:19→21:06)
[2024-01-17] MEDS: methADONE HCl 5 MG TABLET PO ×2 (10:19→14:42)
--- NOTE | 2024-01-17 10:49 | P.PNIM_ITS ---
Subjective Subjective Date of Service: 01/18/24 Interval History: f/u on abd pain, diarrhea, and cdif positive, claimed SI overnight, BP is better, no fever, pain is better, diarrhea improving Physical Exam 2 Vital Signs: Vital Signs: Last Vital Signs Temp 98.2 F 01/17/24 08:00 Pulse 77 01/17/24 08:00 Resp 18 01/17/24 08:00 BP 134/71 01/17/24 08:00 Pulse Ox 93 01/17/24 08:00 O2 Del Method Room Air 01/17/24 08:00 O2 Flow Rate 2 01/16/24 13:13 Oxygen Flow Rate 2 01/16/24 11:31 BMI result Body Mass Index 24.9 General: AO X 3, no acute distress Resp: CTA bilateral CVS: S1,S2,RRR GI: +BS, NT, no distention Skin: No rash Neuro: motor grossly intact Psych: appropriate affect Objective Data Active Medications Acetaminophen (Acetaminophen 325 Mg Tablet) 650 mg PO Q6H PRN PRN Reason: Pain, Mild (Pain Scale 1-3) Acetaminophen (Acetaminophen 325 Mg Tablet) 650 mg PO Q6H PRN PRN Reason: Headache/Pain Mild Scale (1-3) Clonidine HCl (Clonidine Hcl 0.1 Mg Tablet) 0.1 mg PO TID [facility]; Protocol Last Admin: 01/17/24 10:19 Dose: 0.1 mg Documented By: JE Duloxetine HCl (Duloxetine Hcl 20 Mg Capsule.Dr) 20 mg PO BID [facility] Last Admin: 01/17/24 10:19 Dose: 20 mg Documented By: JE Hydromorphone HCl (Hydromorphone Hcl 1 Mg/Ml Syringe) 0.5 mg IVPUSH Q6H PRN; Protocol PRN Reason: Pain, Severe (Pain Scale 7-10) Last Admin: 01/17/24 09:44 Dose: 0.5 mg Documented By: JE Hydroxyzine HCl (Hydroxyzine Hcl 25 Mg Tablet) 25 mg PO QID PRN PRN Reason: anxiety/insomnia Sodium Chloride (Sodium Chloride 0.45 %) 1,000 mls @ 100 mls/hr IVCONT .Q10H [facility] Last Infusion: 01/17/24 06:33 Dose: 100 mls/hr Documented By: DALTON Metronidazole (Flagyl) 500 mg in 100 mls @ 100 mls/hr IV Q12H [facility] Last Infusion: 01/17/24 06:33 Dose: Infused Documented By: DALOTN Melatonin (Melatonin 3 Mg Tablet) 6 mg PO BEDTIME PRN PRN Reason: Insomnia Methadone HCl (Methadone Hcl 5 Mg Tablet) 5 mg PO TID PRN PRN Reason: Pain, Moderate(Pain Scale 4-6) Last Admin: 01/17/24 10:19 Dose: 5 mg Documented By: JE Metoprolol Tartrate (Metoprolol Tartrate 50 Mg Tablet) 50 mg PO BID [facility]; Protocol Last Admin: 01/17/24 10:19 Dose: 50 mg Documented By: JE Ondansetron HCl (Ondansetron Hcl 4 Mg/2 Ml Vial) 4 mg IVPUSH Q8H PRN PRN Reason: Nausea and Vomiting Last Admin: 01/16/24 20:44 Dose: 4 mg Documented By: DALTON Comments: pt feels nauseous Rivaroxaban (Rivaroxaban 20 Mg Tablet) 20 mg PO DAILY [facility] Last Admin: 01/17/24 10:19 Dose: 20 mg Documented By: JE Senna (Sennosides 8.6 Mg Tablet) 17.2 mg PO BID PRN PRN Reason: constipation Sodium Chloride (0.9 % Sodium Chloride Flush 3 Ml Syringe) 3 ml IVFLUSH QSHIFT [facility] Last Admin: 01/17/24 09:16 Dose: Not Given Documented By: EJ Non-Admin Reason: IV Running Trazodone HCl (Trazodone Hcl 50 Mg Tablet) 50 mg PO BEDTIME [facility] Vancomycin HCl (Vancomycin Hcl 125 Mg Capsule) 250 mg PO Q6H [facility] Labs 01/18/24 08:08 01/18/24 08:08 Labs: Laboratory Results - last 24 hr 01/16/24 01/16/24 01/16/24 11:40 11:42 21:17 MCV 86.2 MCH 28.4 MCHC 33.0 RDW 13.0 Plt Count 289 D MPV 10.5 Immature Gran % (Auto) 0.9 H Neut % (Auto) 87.0 H Lymph % (Auto) 9.6 L [place] % (Auto) 0.9 L Eos % (Auto) 1.4 Baso % (Auto) 0.2 Lymph # (Auto) 1.7 [place] # (Auto) 0.2 Eos # (Auto) 0.2 Baso # (Auto) 0.0 Abs Immat Gran (auto) 0.15 H Absolute Neuts (auto) 15.1 H Absolute Nucleated RBC 0.000 Nucleated RBC % (auto) 0.0 Hold Purple Top Anion Gap 16 Estim Creat Clear Calc 41.6 Estimated GFR 46 Random Glucose 207 H Calcium 10.4 H D Total Bilirubin 1.0 Direct Bilirubin 0.4 AST 60 H ALT 20 Alkaline Phosphatase 561 H Troponin I High Sens < 2.7 Total Protein 8.4 H Albumin 4.1 Lipase 26 Urine Color Urine Appearance Urine pH Ur Specific [place] Urine Protein Urine Glucose (UA) Urine Ketones Urine Blood Urine Nitrite Ur Leukocyte Esterase Urine RBC Urine WBC Ur Squamous Epith Cells Urine Bacteria Hyaline Casts C. difficile Tox B Gene POSITIVE A* C. difficile Toxin A&B Negative C. difficile Interpret SEE NOTE Influenza Type A (PCR) NEGATIVE Influenza Type B (PCR) NEGATIVE RSV RNA Qual (PCR) NEGATIVE SARS-CoV-2 RNA (RT-PCR) NEGATIVE 01/16/24 01/17/24 23:38 05:39 MCV 85.3 MCH 28.9 MCHC 33.9 RDW 13.1 Plt Count 205 D MPV 11.5 Immature Gran % (Auto) Neut % (Auto) Lymph % (Auto) [place] % (Auto) Eos % (Auto) Baso % (Auto) Lymph # (Auto) [place] # (Auto) Eos # (Auto) Baso # (Auto) Abs Immat Gran (auto) Absolute Neuts (auto) Absolute Nucleated RBC 0.000 Nucleated RBC % (auto) 0.0 Hold Purple Top SEE NOTE Anion Gap 16 Estim Creat Clear Calc 67.6 Estimated GFR > 60 Random Glucose 100 Calcium 8.9 D Total Bilirubin 0.6 Direct Bilirubin AST 61 H ALT 32 Alkaline Phosphatase 661 H Troponin I High Sens Total Protein 6.7 Albumin 3.2 L Lipase Urine Color Dark Yellow Urine Appearance Clear Urine pH 5.0 Ur Specific [place] 1.020 Urine Protein 30 (1+) H Urine Glucose (UA) Negative Urine Ketones Negative Urine Blood Negative Urine Nitrite Positive H Ur Leukocyte Esterase Small (1+) H Urine RBC 0-2 Urine WBC 0-5 Ur Squamous Epith Cells 3-5 Urine Bacteria None Seen Hyaline Casts 6-10 C. difficile Tox B Gene C. difficile Toxin A&B C. difficile Interpret Influenza Type A (PCR) Influenza Type B (PCR) RSV RNA Qual (PCR) SARS-CoV-2 RNA (RT-PCR) Assessment and Plan (1) Paroxysmal atrial fibrillation: Status: Acute (2) C. difficile colitis: Status: Acute Plan 68-year-old male with a PMH significant for?paroxysmal AFib on Xarelto, ventricular arrhythmia with AICD, HTN, chronic back pain on chronic opioids, personality disorder, and MDD here with abdominal pain, n/v diarrhea with CT finding of colitis, was treated with infectious colitis about a month ago Colitis with n/v diarrhea, CT show persistent colonic wall thickening, given recent abx use and Positive C, treating for C dif -continue PO vanco, IV Flagyl, IVF to keep hydrated, ID consult HypOtension from yesterday d/t diarrhea and dedration, resolved. Mood disorder, now with SI found to be always the case resume home meds sitter and Psych consult rec Cymbalta he doesn't want, he wants klonopin but to be avoided d/t substance use history, and deemed unlikely to act on SI Paroxysmal AFib Continue metoprolol, Xarelto Chronic back and pain Continue home methadone, oxycodone Elevated LFTs and ALK Phone--US show cholelithiasis, CBC size unchanged, tenderness with probe but no obvious cholecystitis get surgery consult HTN--resume metoprolol, clonidine at half usual dose. Hold Nifedipine and Lisinopril Continue home antihypertensives DNR/DNI DVT Prophylaxis: On Xarelto Pt will require a hospitalization of at least two nights for treatment of?acute colitis, and intractable pain and need IV hydration and may need ABX depending of Cdif status Quality Stroke Does the patient have a stroke diagnosis?: No VTE Prior VTE?: No VTE Risk Level:: Medical - moderate - high VTE Device Contraindication: N/A - Device Ordered VTE Drug Contraindication: N/A - Med Ordered
[2024-01-17] MEDS: vancomycin HCL 125 MG CAPSULE 250 MG PO ×3 (11:57→23:47)
--- NOTE | 2024-01-17 16:06 | MHC.CM.PN ---
PT REPORTS HE RESIDES AT [facility] WHERE HE IS INDEPENDENT WITH SELF CARE HE DENIES USE OF DME OR OUTSIDE SERVICES PT REPORTS HE HAS COMPLETED A MOLST BUT DOES NOT HAVE A HCP HE DECLINES TO COMPLETE ONE NOW PCP: NOREEN WHYTE [facility] DELIVERED DCP: RETURN TO [facility] VIA [facility]
[2024-01-17 16:09] VITALS: BP 122/71; PULSE 70; RESP 20; TEMP 37.3; O2SAT 94
--- NOTE | 2024-01-17 16:20 | PC.NURSE ---
Pt inc of stool. Pt is independent in the community with ADLs. Encouraged to ambulate to the bathroom instead of stooling on himself and having [employer] SETTER's clean him up.
[2024-01-17] MEDS: Magnesium Hydrox/Alum Hydrox 30 ML ORAL.SUSP PO (17:02)
[2024-01-17 20:10] VITALS: BP 101/65; PULSE 69; RESP 20; TEMP 36.8; O2SAT 94
[2024-01-17] MEDS: traZODone HCL 50 MG TABLET PO (21:06)
--- NOTE | 2024-01-18 00:10 | W.PM.IDCN ---
History of Present Illness Data of Consult Service Date: 01/17/24 Requesting physician: Gigi Vazquez Primary Care Provider: Travis Mcarthur MD HPI Reason for consult: diarrhea He presents with diarrhea for last 2-3 days. He has Cdiff PCR. He has discomfort RUQ and been started on IV Flagyl and po Vancomycin. Review of Systems Review of Systems: Yes all other systems are reviewed and are negative PMFSH Past Medical History Medical History History of intravenous drug abuse Presence of combination internal cardiac defibrillator (ICD) and pacemaker Ventricular arrhythmia Opioid dependence Lumbar disc herniation Thoracic disc herniation Cervical disc herniation Opioid abuse Pacemaker HTN (hypertension) Family History Family History Mother HTN (hypertension) CHF (congestive heart failure) Family history: reviewed and not pertinent Surgical History Surgical History History of spinal fusion History of hip replacement Social History Social History Household Members: Other Household Members Other:: lives with other roommates Housing: Other Housing Other:: rents an rm in house Do you presently have visiting nurse or other home services: No Unable to assess alcohol history related to: Unknown Alcohol intake: never Patient Tobacco Use Status: Never used Tobacco Smoked in Last 30 Days: No Second Hand Smoke Exposure: No Substance Use Type: Marijuana Substance Use Frequency: Occasionally Last Used Substance: Days (ago) Currently Displaying Signs/Symptoms of Drug Intoxication Withdrawal: No Any prior treatment program specific to substance use: No Have you been hit, kicked, punched, or otherwise hurt by someone within the past year? If so, by whom?: No Do you feel safe in your current relationship?: Yes Is there a partner from a previous relationship who is making you feel unsafe now?: No Are you made to feel afraid or neglected: No Advance Directives: No Advance Directives Information Provided: No Do you have thoughts of harming others: None Do you have a plan to hurt others: No Plan Recently lost weight without trying: Unsure How much weight loss: Unsure Eating poorly because of decreased appetite: Yes Nutrition screen score: 5 Nutrition Risks: No Nutritional Risk Poor oral hygiene: No service: No Current occupational status: retired and disabled Sexual orientation: Straight/Heterosexual Meds Allergies Allergy/AdvReac Type Severity Reaction Status Date / Time ergotamine [ERGOTAMINE] AdvReac Severe NAUSEA Verified 04/12/23 20:41 Active Medications: Current Medications Acetaminophen (Acetaminophen 325 Mg Tablet) 650 mg PO Q6H PRN PRN Reason: Pain, Mild (Pain Scale 1-3) Acetaminophen (Acetaminophen 325 Mg Tablet) 650 mg PO Q6H PRN PRN Reason: Headache/Pain Mild Scale (1-3) Al Hydroxide/Mg Hydroxide (Magnesium Hydrox/Alum Hydrox 30 Ml Oral.Susp) 30 ml PO Q6H PRN PRN Reason: Dyspepsia Last Admin: 01/17/24 17:02 Dose: 30 ml Clonidine HCl (Clonidine Hcl 0.1 Mg Tablet) 0.1 mg PO TID [facility]; Protocol Last Admin: 01/17/24 21:06 Dose: 0.1 mg Duloxetine HCl (Duloxetine Hcl 20 Mg Capsule.Dr) 20 mg PO BID [facility] Last Admin: 01/17/24 21:06 Dose: 20 mg Hydromorphone HCl (Hydromorphone Hcl 1 Mg/Ml Syringe) 0.5 mg IVPUSH Q6H PRN; Protocol PRN Reason: Pain, Severe (Pain Scale 7-10) Last Admin: 01/17/24 23:48 Dose: 0.5 mg Hydroxyzine HCl (Hydroxyzine Hcl 25 Mg Tablet) 25 mg PO QID PRN PRN Reason: anxiety/insomnia Sodium Chloride (Sodium Chloride 0.45 %) 1,000 mls @ 100 mls/hr IVCONT .Q10H [facility] Last Admin: 01/17/24 11:57 Dose: 100 mls/hr Metronidazole (Flagyl) 500 mg in 100 mls @ 100 mls/hr IV Q12H [facility] Last Infusion: 01/17/24 18:20 Dose: Infused Melatonin (Melatonin 3 Mg Tablet) 6 mg PO BEDTIME PRN PRN Reason: Insomnia Methadone HCl (Methadone Hcl 5 Mg Tablet) 5 mg PO TID PRN PRN Reason: Pain, Moderate(Pain Scale 4-6) Last Admin: 01/17/24 14:42 Dose: 5 mg Metoprolol Tartrate (Metoprolol Tartrate 50 Mg Tablet) 50 mg PO BID [facility]; Protocol Last Admin: 01/17/24 21:06 Dose: 50 mg Ondansetron HCl (Ondansetron Hcl 4 Mg/2 Ml Vial) 4 mg IVPUSH Q8H PRN PRN Reason: Nausea and Vomiting Last Admin: 01/16/24 20:44 Dose: 4 mg Rivaroxaban (Rivaroxaban 20 Mg Tablet) 20 mg PO DAILY [facility] Last Admin: 01/17/24 10:19 Dose: 20 mg Senna (Sennosides 8.6 Mg Tablet) 17.2 mg PO BID PRN PRN Reason: constipation Sodium Chloride (0.9 % Sodium Chloride Flush 3 Ml Syringe) 3 ml IVFLUSH QSHIFT [facility] Last Admin: 01/17/24 09:16 Dose: Not Given Trazodone HCl (Trazodone Hcl 50 Mg Tablet) 50 mg PO BEDTIME [facility] Last Admin: 01/17/24 21:06 Dose: 50 mg Vancomycin HCl (Vancomycin Hcl 125 Mg Capsule) 250 mg PO Q6H [facility] Last Admin: 01/17/24 23:47 Dose: 250 mg Home Medications Medication Instructions Recorded Confirmed Last Taken Type methadone 5 mg tablet 5 mg PO TID Pain (Scale Score 4-6) 10/21/22 01/16/24 Unknown History oxycodone 10 mg tablet 1 tab PO BID PRN Pain 10/21/22 01/16/24 Unknown History clonidine HCl 0.2 mg tablet 0.2 mg PO TID 04/12/23 01/16/24 Unknown History hydroxyzine HCl 25 mg tablet 25 mg PO QID PRN anxiety/insomnia 12/12/23 01/16/24 Unknown History Physical Exam Vital Signs: Vital Signs: Last Vital Signs Temp 98.3 F 01/17/24 20:10 Pulse 69 01/17/24 20:10 Resp 20 01/17/24 20:10 BP 101/65 01/17/24 20:10 Pulse Ox 94 01/17/24 20:10 O2 Del Method Room Air 01/17/24 20:10 O2 Flow Rate 2 01/16/24 13:13 Oxygen Flow Rate 2 01/16/24 11:31 BMI result Body Mass Index 24.9 Const: General: cooperative HEENT: Head: Yes normal to inspection Face and sinus: Yes normal facial exam Mouth: Normal oral and palatal mucosa present Teeth and gingiva: dentition normal Eyes: General: appearance normal, both eyes and all related structures Pupils: Equal, round and reactive pupils present Resp: Effort & Inspection: normal respiratory effort Cardio: Rate: regular rate Rhythm: regular rhythm GI: Palpation (GI): Soft to palpation and nontender : General: Yes no CVA tenderness Back/Spine/Pelvis: Back: no CVA tenderness Skin: General skin exam: no rashes or lesions noted Neuro: General: moves all extremities Cranial nerves: Yes Equal, round and reactive pupils present Extrem: General: Yes normal to inspection Psych: Appearance: grossly normal Results Labs 01/17/24 05:39 01/17/24 05:39 Labs: Short CBC 01/17/24 Range/Units 05:39 WBC 18.9 H (4.8-10.8) X10*3/uL Hgb 15.1 (14.0-18.0) g/dl Hct 44.6 (42.0-52.0) % Plt Count 205 D (160-400) X10*3/uL BMP 01/17/24 05:39 Sodium 136 Potassium 4.5 D Chloride 104 Carbon Dioxide 21 L BUN 21 H Creatinine 0.93 Calcium 8.9 D Liver Function 01/17/24 Range/Units 05:39 Total Bilirubin 0.6 (0.0-1.0) mg/dL AST 61 H (5-37) U/L ALT 32 (0-40) U/L Alkaline Phosphatase 661 H (39-117) U/L Albumin 3.2 L (3.5-5.0) g/dL Assessment and Plan (1) Intractable abdominal pain: Status: Acute Plan There is concern over Cdiff even though just PCR positive. Flagyl day or two and then po Vancomycin alone for 14d
--- NOTE | 2024-01-18 00:14 | PC.NURSE ---
Addendum entered by Radu Atkinson RN 01/18/24 01:06: 1:1 patient safety observation cancelled by Dr. Stokes at 0030. Camera remains in place. Patient calm and cooperative. Remains in behavioral control. Original Note: 1:1 patient loss prevention/safety district manager at bedside until 2300. Unable to replace at this time due to staffing constraints. Nursing automotive tire testing supervisor notified. Upon assessment by this RN, patient denies suicidal ideation or thoughts to harm himself or others. Patient reports feeling safe here. Camera placed in patient's room. Psychiatrist Dr. Tye Davila saw patient on 01/17/24. Per Dr. Davila's report- patient denied any plans or intent to harm himself at time of their assessment. Safety scan of room performed. 15 minute safety checks implemented at this time. Dr. Stokes notified. No new orders at this time.
[2024-01-18] MEDS: Magnesium Hydrox/Alum Hydrox 30 ML ORAL.SUSP PO (00:23)
[2024-01-18 04:00] VITALS: BP 136/79; PULSE 70; RESP 16; TEMP 36.2; O2SAT 95
[2024-01-18] MEDS: Sodium Chloride 0.45 % 1,000 ML 100 ML IVCONT ×2 (04:24→09:28)
[2024-01-18] MEDS: metroNIDAZOLE/NS 500 MG/100 ML PIGGYBACK 100 MG IV ×2 (04:26→16:08)
[2024-01-18] MEDS: vancomycin HCL 125 MG CAPSULE 250 MG PO ×4 (05:14→23:30)
[2024-01-18 08:00] VITALS: BP 168/65; PULSE 70; RESP 14; TEMP 36.4; O2SAT 96
[2024-01-18 08:28] LABS: Hematocrit 40.4 % (42.0-52.0); Hemoglobin 13.6 g/dl (14.0-18.0); Mean Corpuscular HGB Conc 33.7 g/dl (31.0-36.0); Mean Corpuscular Hemoglobin 29.1 pg (27.0-33.0); Mean Corpuscular Volume 86.3 fL (80.0-98.0); Mean Platelet Volume 11.3 fL (9.4-12.4); PLT CLUMP 1; Red Blood Count 4.68 X10*6/uL (4.60-5.80); Red Cell Distribution Width 13.5 % (11.0-16.0)
[2024-01-18 08:41] LABS: Anion Gap 11 (12-20); Blood Urea Nitrogen 15 mg/dL (9-16); Calcium 8.8 mg/dL (8.4-10.2); Carbon Dioxide 23 mmol/L (22-29); Chloride 106 mmol/L (96-108); Creatinine Clr Calc Pharmacy 83.8; Estimated Glomerular Filt Rate > 60; Glucose Random 80 mg/dL (60-115); Potassium 3.8 mmol/L (3.3-5.1); Sodium 136 mmol/L (135-145)
[2024-01-18 08:54] LABS: Platelet Count 121 X10*3/uL (160-400); White Blood Count 12.1 X10*3/uL (4.8-10.8)
[2024-01-18] MEDS: 0.9 % Sodium Chloride Flush 3 ML SYRINGE IVFLUSH ×3 (09:19→23:33)
[2024-01-18] MEDS: cloNIDine HCL 0.1 MG TABLET PO ×3 (09:20→20:31)
[2024-01-18] MEDS: DULoxetine HCl 20 MG CAPSULE.DR PO ×2 (09:20→20:31)
[2024-01-18] MEDS: Rivaroxaban 20 MG TABLET PO (09:20)
[2024-01-18] MEDS: Metoprolol Tartrate 50 MG TABLET PO ×2 (09:20→20:32)
[2024-01-18 09:21] VITALS: RESP 16
[2024-01-18] MEDS: HYDROmorphone HCl 1 MG/ML SYRINGE 0.5 MG IVPUSH (09:21)
--- NOTE | 2024-01-18 09:33 | PM.CNGS ---
History of Present Illness Consult details Consult date: 01/18/24 Narrative: Patient is a 68-year-old man, known to me from a previous recent admission who has variety of issues and comorbidities. Complains of abdominal pain. Mainly lower abdomen. This is chronic for him. He had extensive workup. He is known to have cholelithiasis. His last most recent admission admission was for colitis. He is having similar issues and complaints of abdominal pain, associated nausea and vomiting, and diarrhea. Chart was reviewed and patient evaluated. White blood cell count 18 0.9 yesterday to-12.1 today. LFTs most noteworthy for elevated alkaline phosphatase PMFSH Past Medical History Medical History History of intravenous drug abuse Presence of combination internal cardiac defibrillator (ICD) and pacemaker Ventricular arrhythmia Opioid dependence Lumbar disc herniation Thoracic disc herniation Cervical disc herniation Opioid abuse Pacemaker HTN (hypertension) Family History Family History Mother HTN (hypertension) CHF (congestive heart failure) Family history: reviewed and not pertinent Surgical History Surgical History History of spinal fusion History of hip replacement Social History Social History Household Members: Other Household Members Other:: lives with other roommates Housing: Other Housing Other:: rents an rm in house Do you presently have visiting nurse or other home services: No Unable to assess alcohol history related to: Unknown Alcohol intake: never Patient Tobacco Use Status: Never used Tobacco Smoked in Last 30 Days: No Second Hand Smoke Exposure: No Substance Use Type: Marijuana Substance Use Frequency: Occasionally Last Used Substance: Days (ago) Currently Displaying Signs/Symptoms of Drug Intoxication Withdrawal: No Any prior treatment program specific to substance use: No Have you been hit, kicked, punched, or otherwise hurt by someone within the past year? If so, by whom?: No Do you feel safe in your current relationship?: Yes Is there a partner from a previous relationship who is making you feel unsafe now?: No Are you made to feel afraid or neglected: No Advance Directives: No Advance Directives Information Provided: No Do you have thoughts of harming others: None Do you have a plan to hurt others: No Plan Recently lost weight without trying: Unsure How much weight loss: Unsure Eating poorly because of decreased appetite: Yes Nutrition screen score: 5 Nutrition Risks: No Nutritional Risk Poor oral hygiene: No service: No Current occupational status: retired and disabled Sexual orientation: Straight/Heterosexual Meds Allergies Allergy/AdvReac Type Severity Reaction Status Date / Time ergotamine [ERGOTAMINE] AdvReac Severe NAUSEA Verified 04/12/23 20:41 Active Medications: Current Medications Acetaminophen (Acetaminophen 325 Mg Tablet) 650 mg PO Q6H PRN PRN Reason: Pain, Mild (Pain Scale 1-3) Acetaminophen (Acetaminophen 325 Mg Tablet) 650 mg PO Q6H PRN PRN Reason: Headache/Pain Mild Scale (1-3) Al Hydroxide/Mg Hydroxide (Magnesium Hydrox/Alum Hydrox 30 Ml Oral.Susp) 30 ml PO Q6H PRN PRN Reason: Dyspepsia Last Admin: 01/18/24 00:23 Dose: 30 ml Clonidine HCl (Clonidine Hcl 0.1 Mg Tablet) 0.1 mg PO TID [facility]; Protocol Last Admin: 01/18/24 09:20 Dose: 0.1 mg Duloxetine HCl (Duloxetine Hcl 20 Mg Capsule.Dr) 20 mg PO BID [place] Last Admin: 01/18/24 09:20 Dose: 20 mg Hydromorphone HCl (Hydromorphone Hcl 1 Mg/Ml Syringe) 0.5 mg IVPUSH Q6H PRN; Protocol PRN Reason: Pain, Severe (Pain Scale 7-10) Last Admin: 01/18/24 09:21 Dose: 0.5 mg Hydroxyzine HCl (Hydroxyzine Hcl 25 Mg Tablet) 25 mg PO QID PRN PRN Reason: anxiety/insomnia Sodium Chloride (Sodium Chloride 0.45 %) 1,000 mls @ 100 mls/hr IVCONT .Q10H [facility] Last Admin: 01/18/24 09:28 Dose: 100 mls/hr Metronidazole (Flagyl) 500 mg in 100 mls @ 100 mls/hr IV Q12H [facility] Last Infusion: 01/18/24 05:51 Dose: Infused Melatonin (Melatonin 3 Mg Tablet) 6 mg PO BEDTIME PRN PRN Reason: Insomnia Methadone HCl (Methadone Hcl 5 Mg Tablet) 5 mg PO TID PRN PRN Reason: Pain, Moderate(Pain Scale 4-6) Last Admin: 01/17/24 14:42 Dose: 5 mg Metoprolol Tartrate (Metoprolol Tartrate 50 Mg Tablet) 50 mg PO BID [facility]; Protocol Last Admin: 01/18/24 09:20 Dose: 50 mg Ondansetron HCl (Ondansetron Hcl 4 Mg/2 Ml Vial) 4 mg IVPUSH Q8H PRN PRN Reason: Nausea and Vomiting Last Admin: 01/16/24 20:44 Dose: 4 mg Rivaroxaban (Rivaroxaban 20 Mg Tablet) 20 mg PO DAILY [facility] Last Admin: 01/18/24 09:20 Dose: 20 mg Senna (Sennosides 8.6 Mg Tablet) 17.2 mg PO BID PRN PRN Reason: constipation Sodium Chloride (0.9 % Sodium Chloride Flush 3 Ml Syringe) 3 ml IVFLUSH QSHIFT [facility] Last Admin: 01/18/24 09:19 Dose: 3 ml Trazodone HCl (Trazodone Hcl 50 Mg Tablet) 50 mg PO BEDTIME [facility] Last Admin: 01/17/24 21:06 Dose: 50 mg Vancomycin HCl (Vancomycin Hcl 125 Mg Capsule) 250 mg PO Q6H [facility] Last Admin: 01/18/24 05:14 Dose: 250 mg Home Medications Medication Instructions Recorded Confirmed Last Taken Type methadone 5 mg tablet 5 mg PO TID Pain (Scale Score 4-6) 10/21/22 01/16/24 Unknown History oxycodone 10 mg tablet 1 tab PO BID PRN Pain 10/21/22 01/16/24 Unknown History clonidine HCl 0.2 mg tablet 0.2 mg PO TID 04/12/23 01/16/24 Unknown History hydroxyzine HCl 25 mg tablet 25 mg PO QID PRN anxiety/insomnia 12/12/23 01/16/24 Unknown History Physical Exam Vital Signs: Vital Signs: Last Vital Signs Temp 97.5 F 01/18/24 08:00 Pulse 70 01/18/24 08:00 Resp 16 01/18/24 09:21 BP 168/65 H 01/18/24 08:00 Pulse Ox 96 01/18/24 08:00 O2 Del Method Room Air 01/18/24 08:00 O2 Flow Rate 2 01/16/24 13:13 Oxygen Flow Rate 2 01/16/24 11:31 BMI result Body Mass Index 24.9 GI: Other: Abdomen is soft. Patient complains of abdominal pain throughout on palpation but mainly lower abdomen. No evidence of any guarding, rebound, or rigidity. Results Labs 01/18/24 08:08 01/18/24 08:08 Labs: Abnormal lab results 01/18/24 Range/Units 08:08 WBC 12.1 H (4.8-10.8) X10*3/uL Hgb 13.6 L (14.0-18.0) g/dl Hct 40.4 L (42.0-52.0) % Plt Count 121 L D (160-400) X10*3/uL Anion Gap 11 L (12-20) Short CBC 01/18/24 Range/Units 08:08 WBC 12.1 H (4.8-10.8) X10*3/uL Hgb 13.6 L (14.0-18.0) g/dl Hct 40.4 L (42.0-52.0) % Plt Count 121 L D (160-400) X10*3/uL BMP 01/18/24 08:08 Sodium 136 Potassium 3.8 Chloride 106 Carbon Dioxide 23 BUN 15 Creatinine 0.75 Calcium 8.8 Urine 01/16/24 Range/Units 23:38 Urine Color Dark Yellow Urine Appearance Clear Urine pH 5.0 (5.0-9.0) Ur Specific [place] 1.020 (1.005-1.025) Urine Protein 30 (1+) H (Neg-Trace) mg/dL Urine Glucose (UA) Negative (Negative) mg/dL All other labs normal. Assessment and Plan (1) Intractable abdominal pain: Status: Acute Plan Clinically, patient does not have findings consistent with acute cholecystitis. This is combined with the fact that he does not want any surgical procedures at this time. At present, no acute surgical issues. Will follow- p.r.n.. Procedures Date of Service Date of Service: 01/18/24
--- NOTE | 2024-01-18 09:55 | HO.PM.IMPN ---
Subjective Subjective Date of Service: 01/18/24 Interval History: f/u on c dif colitis wth diarrhea overall better, he says diarrhea is better, less abd discomfort, wbc down Physical Exam Vital Signs: Vital Signs: Last Vital Signs Temp 97.5 F 01/18/24 08:00 Pulse 70 01/18/24 08:00 Resp 16 01/18/24 09:21 BP 168/65 H 01/18/24 08:00 Pulse Ox 96 01/18/24 08:00 O2 Del Method Room Air 01/18/24 08:00 O2 Flow Rate 2 01/16/24 13:13 Oxygen Flow Rate 2 01/16/24 11:31 BMI result Body Mass Index 24.9 General: AO X 3, no acute distress Resp: CTA bilateral CVS: S1,S2,RRR GI: +BS, NT, no distention, no guarding Skin: No rash Neuro: motor grossly intact Psych: appropriate affect Objective Data Active Medications Acetaminophen (Acetaminophen 325 Mg Tablet) 650 mg PO Q6H PRN PRN Reason: Pain, Mild (Pain Scale 1-3) Acetaminophen (Acetaminophen 325 Mg Tablet) 650 mg PO Q6H PRN PRN Reason: Headache/Pain Mild Scale (1-3) Al Hydroxide/Mg Hydroxide (Magnesium Hydrox/Alum Hydrox 30 Ml Oral.Susp) 30 ml PO Q6H PRN PRN Reason: Dyspepsia Last Admin: 01/18/24 00:23 Dose: 30 ml Documented By: ALEX Clonidine HCl (Clonidine Hcl 0.1 Mg Tablet) 0.1 mg PO TID [facility]; Protocol Last Admin: 01/18/24 09:20 Dose: 0.1 mg Documented By: ROSARIO Duloxetine HCl (Duloxetine Hcl 20 Mg Capsule.Dr) 20 mg PO BID [facility] Last Admin: 01/18/24 09:20 Dose: 20 mg Documented By: ROSARIO Hydromorphone HCl (Hydromorphone Hcl 1 Mg/Ml Syringe) 0.5 mg IVPUSH Q6H PRN; Protocol PRN Reason: Pain, Severe (Pain Scale 7-10) Last Admin: 01/18/24 09:21 Dose: 0.5 mg Documented By: ROSARIO Hydroxyzine HCl (Hydroxyzine Hcl 25 Mg Tablet) 25 mg PO QID PRN PRN Reason: anxiety/insomnia Sodium Chloride (Sodium Chloride 0.45 %) 1,000 mls @ 100 mls/hr IVCONT .Q10H [facility] Last Admin: 01/18/24 09:28 Dose: 100 mls/hr Documented By: ROSARIO Metronidazole (Flagyl) 500 mg in 100 mls @ 100 mls/hr IV Q12H [facility] Last Infusion: 01/18/24 05:51 Dose: Infused Documented By: DIANNE Melatonin (Melatonin 3 Mg Tablet) 6 mg PO BEDTIME PRN PRN Reason: Insomnia Methadone HCl (Methadone Hcl 5 Mg Tablet) 5 mg PO TID PRN PRN Reason: Pain, Moderate(Pain Scale 4-6) Last Admin: 01/17/24 14:42 Dose: 5 mg Documented By: JE Metoprolol Tartrate (Metoprolol Tartrate 50 Mg Tablet) 50 mg PO BID [facility]; Protocol Last Admin: 01/18/24 09:20 Dose: 50 mg Documented By: ROSARIO Ondansetron HCl (Ondansetron Hcl 4 Mg/2 Ml Vial) 4 mg IVPUSH Q8H PRN PRN Reason: Nausea and Vomiting Last Admin: 01/16/24 20:44 Dose: 4 mg Documented By: DALTON Comments: pt feels nauseous Rivaroxaban (Rivaroxaban 20 Mg Tablet) 20 mg PO DAILY [facility] Last Admin: 01/18/24 09:20 Dose: 20 mg Documented By: ROSARIO Senna (Sennosides 8.6 Mg Tablet) 17.2 mg PO BID PRN PRN Reason: constipation Sodium Chloride (0.9 % Sodium Chloride Flush 3 Ml Syringe) 3 ml IVFLUSH QSHIFT [facility] Last Admin: 01/18/24 09:19 Dose: 3 ml Documented By: ROSARIO Trazodone HCl (Trazodone Hcl 50 Mg Tablet) 50 mg PO BEDTIME [facility] Last Admin: 01/17/24 21:06 Dose: 50 mg Documented By: DIANNE Vancomycin HCl (Vancomycin Hcl 125 Mg Capsule) 250 mg PO Q6H [facility] Last Admin: 01/18/24 05:14 Dose: 250 mg Documented By: DIANNE Labs 01/18/24 08:08 01/18/24 08:08 Labs: Laboratory Results - last 24 hr 01/18/24 08:08 MCV 86.3 MCH 29.1 MCHC 33.7 RDW 13.5 Plt Count 121 L D MPV 11.3 Absolute Nucleated RBC 0.000 Nucleated RBC % (auto) 0.0 Anion Gap 11 L Estim Creat Clear Calc 83.8 Estimated GFR > 60 Random Glucose 80 Calcium 8.8 Microbiology Microbiology Results: Microbiology 01/17/24 Unknown Urine Culture - Final Urine clean catch - Urine perry top No growth. Assessment and Plan (1) Paroxysmal atrial fibrillation: Status: Acute (2) C. difficile colitis: Status: Acute Plan 68-year-old male with a PMH significant for?paroxysmal AFib on Xarelto, ventricular arrhythmia with AICD, HTN, chronic back pain on chronic opioids, personality disorder, and MDD here with abdominal pain, n/v diarrhea with CT finding of colitis, was treated with infectious colitis about a month ago C Dif colitis, diarrhea, pain diarrhea better, WBC down from 18 to 12 -continue PO Vanco, DC IV Flagyl today -ID recommends vano x 14 days total -advance diet HypOtension on admission d/t diarrhea and dedration, resolved. Mood disorder, now with SI found to be always the case -continue home meds -Psych consult rec Cymbalta he doesn't want, he wants klonopin but to be avoided d/t substance use history, and deemed unlikely to act on SI, camera if no sitter Paroxysmal AFib--rate controlled Continue metoprolol, Xarelto Chronic back and pain Continue home methadone, oxycodone Elevated LFTs and ALK Phone--US show cholelithiasis, CBC size unchanged, tenderness with probe but no obvious cholecystitis surgery recommends no intervention at this time. HTN--resume metoprolol, clonidine at half usual dose. Hold Nifedipine and Lisinopril Continue home antihypertensives DNR/DNI DVT Prophylaxis: On Xarelto need for inpt: cdif colitis with dehyration being hydrated with IV fluid Quality Stroke Does the patient have a stroke diagnosis?: No VTE Prior VTE?: No VTE Risk Level:: Medical - moderate - high VTE Device Contraindication: N/A - Device Ordered VTE Drug Contraindication: N/A - Med Ordered
[2024-01-18 10:45] LABS: Alanine Aminotransferase 19 U/L (0-40); Alkaline Phosphatase 455 U/L (39-117); Aspartate Amino Transferase 46 U/L (5-37); Bilirubin Direct 0.3 mg/dL (0.0-0.5); Bilirubin Total 0.6 mg/dL (0.0-1.0); Total Protein 6.2 g/dL (6.5-8.0)
--- NOTE | 2024-01-18 11:29 | MHC.CM.PN ---
EMR REVIEWED AND PER MD ROUNDS, PT IS NOT MEDICALLY CLEARED FOR DC (CONTINUES WITH DIARRHEA BUT IMPROVING, ADVANCING DIET) WELLNESS NURSE AT [facility] WILL RETURN THIS CM CALL REGARDING CDIFF DX AND PROTOCOLS AT [facility]. CM WILL CONTINUE TO FOLLOW FOR ANY CHANGE IN DC PLAN/NEEDS.
[2024-01-18] MEDS: methADONE HCl 5 MG TABLET PO (12:11)
[2024-01-18 16:00] VITALS: BP 148/68; PULSE 72; RESP 15; TEMP 36.2; O2SAT 96
[2024-01-18 20:00] VITALS: BP 145/79; PULSE 79; RESP 18; TEMP 36.4; O2SAT 94
[2024-01-18] MEDS: hydrOXYzine HCL 25 MG TABLET PO (20:31)
[2024-01-18] MEDS: traZODone HCL 50 MG TABLET PO (20:32)
[2024-01-18] MEDS: ondansetron HCL 4 MG/2 ML VIAL IVPUSH (20:32)
[2024-01-19 04:00] VITALS: BP 142/79; PULSE 72; RESP 16; TEMP 37.2; O2SAT 95
[2024-01-19] MEDS: metroNIDAZOLE/NS 500 MG/100 ML PIGGYBACK 100 MG IV (04:38)
--- NOTE | 2024-01-19 04:58 | PM.EVENT ---
Event Note Date of Service: 01/19/24 Event Note: 4:46 am - contacted by nursing to notified patient verbalized being frustrated having the runs again and said he will just find a way to ended. When nurse asked him if he wants to hurt himself he said: Not here, I am just kidding . An order for sitter placed and reconsult pshychiatry. Time Spent With Patient Time: Total time managing care of this patient today ____ minutes.
[2024-01-19] MEDS: vancomycin HCL 125 MG CAPSULE 250 MG PO ×4 (05:03→23:48)
--- NOTE | 2024-01-19 05:13 | PC.NURSE ---
Pt had a persistent diarrhea upon waking up, verbalizing being upset and disappointed, pt was changed by staffs, around 0440 pt verbalized being frustrated as his diarrhea became persistent, pt claimed, this is not the way he wants to live, pt encouraged to be patient in his healing process, pt verbalized he will find a way to end it, RN verified if he want s to hurt himself, pt said , not here and then said he was just kidding, conversation with pt was relayed to Kentrell Moran assigned to pt, Psych to reeval pt.
[2024-01-19] MEDS: HYDROmorphone HCl 1 MG/ML SYRINGE 0.5 MG IVPUSH ×2 (05:52→21:26)
[2024-01-19 07:47] VITALS: BP 154/98; PULSE 68; RESP 14; TEMP 36.5; O2SAT 96
--- NOTE | 2024-01-19 08:25 | P.DS_ITS ---
DS: Providers Provider Date of Service: 01/19/24 Date of admission: 01/16/24 17:03 Primary care physician: Travis Mcarthur MD Consults: 01/17/24 05:10 Consult to Psychiatry Routine Consulting Provider: Psych Covering Reason for consultation: SI 01/17/24 10:56 Consult to General Surgery Routine Consulting Provider: [facility] General Surgeons Reason for consultation: Abd pain, RUQ ? cholecystitis Has provider been notified: No Consult to Infectious Diseases Routine Consulting Provider: [facility] Infectious Disease Reason for consultation: Diarrhea, abd pain + C dif Toxin A Has provider been notified: No 01/19/24 04:57 Consult to Psychiatry Routine Consulting Provider: Psych Covering Reason for consultation: concern for SI Has provider been notified: No DS: Diagnosis Discharge Diagnosis (1) Paroxysmal atrial fibrillation: Status: Inactive (2) C. difficile colitis: Status: Acute DS: Summary Hospital Course Hospital Course: HPI Pt is a 68-year-old male with a PMH significant for?paroxysmal AFib on Xarelto, ventricular arrhythmia with AICD, HTN, chronic back pain on chronic opioids, personality disorder, and MDD who presents acute onset of abdominal pain since this morning. He describes severe abdominal pain, diffusely and assocated with diarrhea and vomitting, There is no fever, no sick contact and is not attributing it to food, no recent travel. He was in the hospital about a month ago with diarrhea and at that time was treated for colitis with antibiotics. WBC is 17K . A CT of the abdomen and pelvis is noted for residual colonic thickening said to be better than previous. Morphine, Zofran given for comfort. Hospital coruse: Patient presente with abdominal pain and diarrhea and found to have C dif diarrhea and colitis, he was treated while in the hospital initially with IV Flagyl and PO Vancomcyin. Diarrhea has since improved, he has no fever and abdominal exam is bening. ID recommends 14 days of oral Vanco to complete course of C dif treatment. Of note while in hospital, he made comments about not wanted to live. He was seen by Psych and deemed not at risk for self harm. He states t hat he only states that because he felt sick. He was evaluated by PT team and will need PT\OT on discharge. Noted to have Elevated LFTs and ALK, US show cholelithiasis, CBC size unchange d, tenderness with probe but no obvious cholecystitis. surgery recommends no intervention at this time. Take vancomycin as recommended follow up with PCP in 1-2 weeks Time Attestation Discharge Coordination Time (in mins): 40 Quality: Safe Use of Opioids Does Pt have an Active Cancer Diagnosis on the Problem List?: No Quality: Stroke Does the patient have a stroke diagnosis?: No Physical Exam Vital Signs: Vital Signs: Last Vital Signs Temp 97.7 F 01/19/24 07:47 Pulse 68 01/19/24 07:47 Resp 14 01/19/24 07:47 BP 154/98 H 01/19/24 07:47 Pulse Ox 96 01/19/24 07:47 O2 Del Method Room Air 01/19/24 07:47 O2 Flow Rate 2 01/16/24 13:13 Oxygen Flow Rate 2 01/16/24 11:31 BMI result Body Mass Index 24.9 General: AO X 3, no acute distress Resp: CTA bilateral CVS: S1,S2,RRR GI: +BS, NT, no distention Skin: No rash Neuro: motor grossly intact Psych: appropriate affect DS: Data Data Completed and Pending Labs on day of discharge: Laboratory Results - last 24 hr 01/18/24 08:08 WBC 12.1 H RBC 4.68 Hgb 13.6 L Hct 40.4 L MCV 86.3 MCH 29.1 MCHC 33.7 RDW 13.5 Plt Count 121 L D MPV 11.3 Absolute Nucleated RBC 0.000 Nucleated RBC % (auto) 0.0 Sodium 136 Potassium 3.8 Chloride 106 Carbon Dioxide 23 Anion Gap 11 L BUN 15 Creatinine 0.75 Estim Creat Clear Calc 83.8 Estimated GFR > 60 Random Glucose 80 Calcium 8.8 Total Bilirubin 0.6 Direct Bilirubin 0.3 AST 46 H ALT 19 Alkaline Phosphatase 455 H Total Protein 6.2 L Albumin 3.0 L Discharge Plan Discharge Anticipated Discharge Date/Time: 01/20/24 10:24 Patient Disposition: Home Health Service Discharge Diagnosis: C dif diarrhea, and colitis Referrals: [facility] LOMB[facility] [Outside] - 3-5 Days (HOME SERVICES FOR PHYSICAL THERAP Y/OCCUPATIONAL THERAPY- A THERAPIST WILL CALL YOU TO ARRANGE FIRST VISIT.) Travis Mcarthur MD [Primary Care Provider] - 1 Week Discharge Medications: New vancomycin 125 mg Capsule 250 mg PO Q6H Qty: 48 0RF Continued methadone 5 mg tablet 5 mg PO TID oxycodone 10 mg tablet 1 tab PO BID PRN (Reason: Pain) acetaminophen 325 mg Tablet 650 mg PO Q6H PRN (Reason: Headache/Pain Mild Scale (1-3)) Qty: 0 0RF trazodone 50 mg tablet 1 tab PO BEDTIME Qty: 30 0RF nifedipine 90 mg tablet extended release 24hr 1 tab PO DAILY Qty: 30 0RF Hold Instructions: Resume on 04/28/23. hold and moniter blood pressure ,if consistently elevated consider adding nifedipine back. lisinopril 5 mg tablet 1 tab PO DAILY Qty: 30 0RF duloxetine [Cymbalta] 20 mg capsule,delayed release(DR/EC) 20 mg PO BID Qty: 60 0RF Senokot Extra Strength 17.2 mg tablet 17.2 mg PO BID PRN (Reason: constipation) Qty: 30 0RF clonidine HCl 0.2 mg tablet 0.2 mg PO TID Xarelto 20 mg tablet 20 mg PO DAILY Qty: 30 0RF Rx Instructions: must administer with evening meal metoprolol tartrate 50 mg Tablet 50 mg PO BID Qty: 60 0RF Protocol: Hold for SBP/HR < HOLD for SBP < : 90 HOLD for HR < : 60 hydroxyzine HCl 25 mg tablet 25 mg PO QID PRN (Reason: anxiety/insomnia) Discharge Orders: Discharge Order (Routine); Ordered 01/22/24 Ordered By: Timmy Barnes Diet: Advance to usual diet Activity on Discharge: As tolerated Stand Alone Forms: Patient Portal Discharge page Print Language: Mongolian Care Plan Goals: Resolution of C dif colits and diarrhea Health Concerns: C diff diarrhea and colitis Plan of Treatment: Take vancomycin as recommended follow up with PCP in 1-2 weeks Assessment: See above Discharge Date/Time: 01/22/24 15:21
--- NOTE | 2024-01-19 09:35 | HO.PM.IMPN ---
Subjective Subjective Date of Service: 01/19/24 Interval History: f/u on c dif colitis wth diarrhea overall better, he says diarrhea is better, less abd discomfort again made SI comment but denies Review of Systems f/u Physical Exam Vital Signs: Vital Signs: Last Vital Signs Temp 97.7 F 01/19/24 07:47 Pulse 68 01/19/24 07:47 Resp 14 01/19/24 07:47 BP 154/98 H 01/19/24 07:47 Pulse Ox 96 01/19/24 07:47 O2 Del Method Room Air 01/19/24 07:47 O2 Flow Rate 2 01/16/24 13:13 Oxygen Flow Rate 2 01/16/24 11:31 BMI result Body Mass Index 24.9 General: AO X 3, no acute distress Resp: CTA bilateral CVS: S1,S2,RRR GI: +BS, NT, no distention Skin: No rash Neuro: motor grossly intact Psych: appropriate affect, claims not suicidal at this time Objective Data Active Medications Acetaminophen (Acetaminophen 325 Mg Tablet) 650 mg PO Q6H PRN PRN Reason: Pain, Mild (Pain Scale 1-3) Acetaminophen (Acetaminophen 325 Mg Tablet) 650 mg PO Q6H PRN PRN Reason: Headache/Pain Mild Scale (1-3) Al Hydroxide/Mg Hydroxide (Magnesium Hydrox/Alum Hydrox 30 Ml Oral.Susp) 30 ml PO Q6H PRN PRN Reason: Dyspepsia Last Admin: 01/18/24 00:23 Dose: 30 ml Documented By: ALEX Clonidine HCl (Clonidine Hcl 0.1 Mg Tablet) 0.1 mg PO TID [facility]; Protocol Last Admin: 01/18/24 20:31 Dose: 0.1 mg Documented By: FLORINA Comments: bp 145/79 h 79 Duloxetine HCl (Duloxetine Hcl 20 Mg Capsule.Dr) 20 mg PO BID [place] Last Admin: 01/18/24 20:31 Dose: 20 mg Documented By: FLORINA Hydromorphone HCl (Hydromorphone Hcl 1 Mg/Ml Syringe) 0.5 mg IVPUSH Q6H PRN; Protocol PRN Reason: Pain, Severe (Pain Scale 7-10) Last Admin: 01/19/24 05:52 Dose: 0.5 mg Documented By: FLORINA Hydroxyzine HCl (Hydroxyzine Hcl 25 Mg Tablet) 25 mg PO QID PRN PRN Reason: anxiety/insomnia Last Admin: 01/18/24 20:31 Dose: 25 mg Documented By: FLORINA Metronidazole (Flagyl) 500 mg in 100 mls @ 100 mls/hr IV Q12H [facility] Last Infusion: 01/19/24 05:47 Dose: Infused Documented By: FLORINA Melatonin (Melatonin 3 Mg Tablet) 6 mg PO BEDTIME PRN PRN Reason: Insomnia Methadone HCl (Methadone Hcl 5 Mg Tablet) 5 mg PO TID PRN PRN Reason: Pain, Moderate(Pain Scale 4-6) Last Admin: 01/18/24 12:11 Dose: 5 mg Documented By: ROSARIO Metoprolol Tartrate (Metoprolol Tartrate 50 Mg Tablet) 50 mg PO BID [facility]; Protocol Last Admin: 01/18/24 20:32 Dose: 50 mg Documented By: FLORINA Comments: bp 145/79 h 70 Ondansetron HCl (Ondansetron Hcl 4 Mg/2 Ml Vial) 4 mg IVPUSH Q8H PRN PRN Reason: Nausea and Vomiting Last Admin: 01/18/24 20:32 Dose: 4 mg Documented By: FLORINA Rivaroxaban (Rivaroxaban 20 Mg Tablet) 20 mg PO DAILY [facility] Last Admin: 01/18/24 09:20 Dose: 20 mg Documented By: ROSARIO Senna (Sennosides 8.6 Mg Tablet) 17.2 mg PO BID PRN PRN Reason: constipation Sodium Chloride (0.9 % Sodium Chloride Flush 3 Ml Syringe) 3 ml IVFLUSH QSHIFT [facility] Last Admin: 01/18/24 23:33 Dose: 3 ml Documented By: FLORINA Trazodone HCl (Trazodone Hcl 50 Mg Tablet) 50 mg PO BEDTIME [facility] Last Admin: 01/18/24 20:32 Dose: 50 mg Documented By: FLORINA Vancomycin HCl (Vancomycin Hcl 125 Mg Capsule) 250 mg PO Q6H [facility] Last Admin: 01/19/24 05:03 Dose: 250 mg Documented By: FLORINA Labs 01/18/24 08:08 01/18/24 08:08 Labs: Laboratory Results - last 24 hr 01/18/24 08:08 Total Bilirubin 0.6 Direct Bilirubin 0.3 AST 46 H ALT 19 Alkaline Phosphatase 455 H Total Protein 6.2 L Albumin 3.0 L Microbiology Microbiology Results: Microbiology 01/17/24 Unknown Urine Culture - Final Urine clean catch - Urine perry top No growth. Assessment and Plan (1) Paroxysmal atrial fibrillation: Status: Acute (2) C. difficile colitis: Status: Acute Plan 68-year-old male with a PMH significant for?paroxysmal AFib on Xarelto, ventricular arrhythmia with AICD, HTN, chronic back pain on chronic opioids, personality disorder, and MDD here with abdominal pain, n/v diarrhea with CT finding of colitis, was treated with infectious colitis about a month ago C Dif colitis, diarrhea, pain diarrhea better, WBC down from 18 to 12 -continue PO Vanco, DC IV Flagyl today -ID recommends vano x 14 days total -regular diet HypOtension on admission d/t diarrhea and dedration, resolved. Mood disorder, now with SI found to be always the case -continue home meds -Psych consult rec Cymbalta he doesn't want, he wants klonopin but to be avoided d/t substance use history, and deemed unlikely to act on SI, camera if no sitter CARE team consult Paroxysmal AFib--rate controlled Continue metoprolol, Xarelto Chronic back and pain Continue home methadone, oxycodone Elevated LFTs and ALK Phone--US show cholelithiasis, CBC size unchanged, tenderness with probe but no obvious cholecystitis surgery recommends no intervention at this time. HTN--BP now high, continue metoprolol, clonidine at half usual dose. resume Nifedipine and Lisinopril Continue home antihypertensives DNR/DNI DVT Prophylaxis: On Xarelto need for inpt: cdif colitis with dehyration being hydrated with IV fluid ready for discharge but may not be able to return to assisted living due to C diff with diarrhea with communal bathroom Quality Stroke Does the patient have a stroke diagnosis?: No VTE Prior VTE?: No VTE Risk Level:: Medical - moderate - high VTE Device Contraindication: N/A - Device Ordered VTE Drug Contraindication: N/A - Med Ordered
[2024-01-19] MEDS: 0.9 % Sodium Chloride Flush 3 ML SYRINGE IVFLUSH ×3 (09:53→23:50)
[2024-01-19] MEDS: methADONE HCl 5 MG TABLET PO (09:54)
[2024-01-19] MEDS: lisinopriL 5 MG TABLET PO (09:54)
[2024-01-19] MEDS: Rivaroxaban 20 MG TABLET PO (09:54)
[2024-01-19] MEDS: NIFEdipine ER 90 MG TAB.ER.24 PO (09:54)
[2024-01-19] MEDS: Metoprolol Tartrate 50 MG TABLET PO ×2 (09:54→21:17)
[2024-01-19] MEDS: cloNIDine HCL 0.1 MG TABLET PO ×3 (09:54→21:17)
[2024-01-19] MEDS: DULoxetine HCl 20 MG CAPSULE.DR PO ×2 (09:56→21:17)
--- NOTE | 2024-01-19 11:41 | MHC.CARE ---
CARE Team [employer] C Truck Driver left voicemail for [facility] Transitional Care line [phone] requesting call back from patient's Senior Architectural Designer to coordinate outpatient therapeutic services, resumption of care and access to resources such as assistance with applying for a government phone.
[2024-01-19] MEDS: Acetaminophen 325 MG TABLET 650 MG PO (12:20)
--- NOTE | 2024-01-19 12:43 | MHC.CARE ---
Pt was seen by CARE team and does not meet inpatient level of care, pt denies suicidal or homicidal ideation plan or intent and is not seeking inpatient level of care currently. Pt was given community resources Dr. Vazquez was consulted with on disposition.
--- NOTE | 2024-01-19 14:36 | MHC.CM.PN ---
CM SPOKE WITH WELLNESS NURSE CESILIA AT [facility] WHO IS REQUESTING A P.T/O.T. EVAL TO DETERMINE PT ABILITY TO MANAGE HIS TOILETING AND HYGIENE BEFORE RETURNING TO [facility] TO C-DIFF DX. PT DOES NOT HAVE ACCESS TO A PVT BREnrique BECERRIL NOTIFIED. CM WILL CONTINUE TO FOLLOW FOR ANY CHANGE TO DC NEEDS/PLAN
[2024-01-19 15:20] VITALS: BP 141/84; PULSE 71; RESP 18; TEMP 36.3; O2SAT 96
[2024-01-19] MEDS: Magnesium Hydrox/Alum Hydrox 30 ML ORAL.SUSP PO (18:39)
[2024-01-19 20:00] VITALS: BP 115/81; PULSE 82; RESP 18; TEMP 36.3; O2SAT 94
[2024-01-19] MEDS: traZODone HCL 50 MG TABLET PO (21:17)
[2024-01-20] MEDS: HYDROmorphone HCl 1 MG/ML SYRINGE 0.5 MG IVPUSH ×2 (03:48→20:44)
[2024-01-20 04:00] VITALS: BP 124/75; PULSE 71; RESP 16; TEMP 36; O2SAT 93
[2024-01-20] MEDS: vancomycin HCL 125 MG CAPSULE 250 MG PO ×3 (05:45→17:19)
[2024-01-20 06:49] VITALS: BP 116/77; PULSE 72; RESP 17; TEMP 36; O2SAT 98
[2024-01-20] MEDS: 0.9 % Sodium Chloride Flush 3 ML SYRINGE IVFLUSH ×3 (09:03→20:45)
[2024-01-20] MEDS: cloNIDine HCL 0.1 MG TABLET PO ×3 (09:04→20:45)
[2024-01-20] MEDS: DULoxetine HCl 20 MG CAPSULE.DR PO ×2 (09:04→20:45)
[2024-01-20] MEDS: lisinopriL 5 MG TABLET PO (09:04)
[2024-01-20] MEDS: Rivaroxaban 20 MG TABLET PO (09:05)
[2024-01-20] MEDS: NIFEdipine ER 90 MG TAB.ER.24 PO (09:05)
[2024-01-20] MEDS: Metoprolol Tartrate 50 MG TABLET PO ×2 (09:05→20:45)
--- NOTE | 2024-01-20 13:29 | P.PNIM_ITS ---
Subjective Subjective Date of Service: 01/20/24 Interval History: Seen and evaluated this morning reporting feeling fatigued and having diarrhea tolerating diet no other events Review of Systems Review of Systems: Yes all other systems are reviewed and are negative Physical Exam 2 Vital Signs: Vital Signs: Last Vital Signs Temp 96.8 F 01/20/24 06:49 Pulse 72 01/20/24 06:49 Resp 17 01/20/24 06:49 BP 116/77 01/20/24 06:49 Pulse Ox 98 01/20/24 06:49 O2 Del Method Room Air 01/20/24 06:49 O2 Flow Rate 2 01/16/24 13:13 Oxygen Flow Rate 2 01/16/24 11:31 BMI result Body Mass Index 24.9 Const: Other: Constitutional : Awake, interactive, not in distress Neck : Normal inspection, Supple Cardiovascular : RRR, no JVP, no lower extremity edema Respiratory : good bilateral air entry, no crackles, wheezes or rhonchi Gastrointestinal: soft, lax, Normal bowel sounds, Non tender Skin : Warm, Dry Neurological : Alert & oriented x3, No focal deficit Objective Data Active Medications Acetaminophen (Acetaminophen 325 Mg Tablet) 650 mg PO Q6H PRN PRN Reason: Pain, Mild (Pain Scale 1-3) Last Admin: 01/19/24 12:20 Dose: 650 mg Documented By: ROSARIO Acetaminophen (Acetaminophen 325 Mg Tablet) 650 mg PO Q6H PRN PRN Reason: Headache/Pain Mild Scale (1-3) Al Hydroxide/Mg Hydroxide (Magnesium Hydrox/Alum Hydrox 30 Ml Oral.Susp) 30 ml PO Q6H PRN PRN Reason: Dyspepsia Last Admin: 01/19/24 18:39 Dose: 30 ml Documented By: ROSARIO Clonidine HCl (Clonidine Hcl 0.1 Mg Tablet) 0.1 mg PO TID [facility]; Protocol Last Admin: 01/20/24 09:04 Dose: 0.1 mg Documented By: DANAY Comments: 128/82 82 Duloxetine HCl (Duloxetine Hcl 20 Mg Capsule.) 20 mg PO BID [facility] Last Admin: 01/20/24 09:04 Dose: 20 mg Documented By: DANAY Hydromorphone HCl (Hydromorphone Hcl 1 Mg/Ml Syringe) 0.5 mg IVPUSH Q6H PRN; Protocol PRN Reason: Pain, Severe (Pain Scale 7-10) Last Admin: 01/20/24 03:48 Dose: 0.5 mg Documented By: ELTON Hydroxyzine HCl (Hydroxyzine Hcl 25 Mg Tablet) 25 mg PO QID PRN PRN Reason: anxiety/insomnia Last Admin: 01/18/24 20:31 Dose: 25 mg Documented By: JULIENNEILGabriel Lisinopril (Lisinopril 5 Mg Tablet) 5 mg PO DAILY [facility]; Protocol Last Admin: 01/20/24 09:04 Dose: 5 mg Documented By: DANAY Melatonin (Melatonin 3 Mg Tablet) 6 mg PO BEDTIME PRN PRN Reason: Insomnia Methadone HCl (Methadone Hcl 5 Mg Tablet) 5 mg PO TID PRN PRN Reason: Pain, Moderate(Pain Scale 4-6) Last Admin: 01/19/24 09:54 Dose: 5 mg Documented By: ROSARIO Metoprolol Tartrate (Metoprolol Tartrate 50 Mg Tablet) 50 mg PO BID [facility]; Protocol Last Admin: 01/20/24 09:05 Dose: 50 mg Documented By: DANAY Nifedipine (Nifedipine Er 90 Mg Tab.Er.24) 90 mg PO DAILY [facility]; Protocol Last Admin: 01/20/24 09:05 Dose: 90 mg Documented By: DANAY Ondansetron HCl (Ondansetron Hcl 4 Mg/2 Ml Vial) 4 mg IVPUSH Q8H PRN PRN Reason: Nausea and Vomiting Last Admin: 01/18/24 20:32 Dose: 4 mg Documented By: FLORINA Rivaroxaban (Rivaroxaban 20 Mg Tablet) 20 mg PO DAILY [facility] Last Admin: 01/20/24 09:05 Dose: 20 mg Documented By: DANAY Senna (Sennosides 8.6 Mg Tablet) 17.2 mg PO BID PRN PRN Reason: constipation Sodium Chloride (0.9 % Sodium Chloride Flush 3 Ml Syringe) 3 ml IVFLUSH QSHICHI [facility] Last Admin: 01/20/24 09:03 Dose: 3 ml Documented By: DANAY Trazodone HCl (Trazodone Hcl 50 Mg Tablet) 50 mg PO BEDTIME [facility] Last Admin: 01/19/24 21:17 Dose: 50 mg Documented By: ELTON Vancomycin HCl (Vancomycin Hcl 125 Mg Capsule) 250 mg PO Q6H [facility] Last Admin: 01/20/24 11:32 Dose: 250 mg Documented By: RUSSELL Labs 01/18/24 08:08 01/18/24 08:08 Assessment and Plan (1) C. difficile colitis: Status: Acute (2) Intractable abdominal pain: Status: Acute Plan 68-year-old male with a PMH significant for?paroxysmal AFib on Xarelto, ventricular arrhythmia with AICD, HTN, chronic back pain on chronic opioids, personality disorder, and MDD here with abdominal pain, n/v diarrhea with CT finding of colitis, was treated with infectious colitis about a month ago C Diff colitis, diarrhea better continue PO Vanco, DC IV Flagyl ID recommends vanco x 14 days total Regular diet HypOtension on admission d/t diarrhea and dedration, resolved. Mood disorder w suicidal ideation continue home meds Psych consult rec Cymbalta that he doesn't want, he wants klonopin but to be avoided d/t substance use history, deemed unlikely to act on SI, denies any intention or plan. To DC sitter and keep him on camera CARE team consulted Paroxysmal AFib rate controlled Continue metoprolol, Xarelto Chronic back and pain Continue home methadone, oxycodone Elevated LFTs and ALK Phone US show cholelithiasis, CBC size unchanged, tenderness with probe but no obvious cholecystitis surgery recommends no intervention at this time. HTN Better controlled continue metoprolol, clonidine at half usual dose. resume Nifedipine and Lisinopril Continue home antihypertensives DNR/DNI DVT Prophylaxis: On Xarelto need for inpt stay: cdif colitis with dehydration Still having diarrhea and seems not be able to return to assisted living due to C diff with diarrhea with communal bathroom Quality Stroke Does the patient have a stroke diagnosis?: No VTE Prior VTE?: No VTE Risk Level:: Medical - moderate - high VTE Device Contraindication: N/A - Device Ordered VTE Drug Contraindication: N/A - Med Ordered
--- NOTE | 2024-01-20 14:09 | PC.NURSE ---
Per Dr Barnes, ok to dc sitter. Pt has not voiced any suicidal thoughts this shift Camera in room for pt safety
--- NOTE | 2024-01-20 14:39 | MHC.CM.PN ---
CALL TO [facility] [phone] WELLNESS NURSES, CESILIA AND WILL, ARE GONE FOR THE DAY PLAN IS FOR RETURN THURSDAY 09:00-14:00 DAILY. PATIENT IS TO RETURN TO FACILITY TOMORROW. P.TEnrique WALTER RECOMMENDS STR VERSUS HOME WITH SERVICES. CASE MANAGEMENT TO DISCUSS ANY SERVICES THAT ARE PROVIDED AT FACILITY FOR REFERRAL PURPOSES.
[2024-01-20 15:43] VITALS: BP 115/80; PULSE 81; RESP 18; TEMP 36.4; O2SAT 93
[2024-01-20] MEDS: ondansetron HCL 4 MG/2 ML VIAL IVPUSH (17:20)
[2024-01-20 19:12] VITALS: BP 121/64; PULSE 64; RESP 16; TEMP 36.8; O2SAT 93
[2024-01-20] MEDS: traZODone HCL 50 MG TABLET PO (20:44)
[2024-01-20] MEDS: Melatonin 3 MG TABLET 6 MG PO (20:45)
[2024-01-21] MEDS: vancomycin HCL 125 MG CAPSULE 250 MG PO ×4 (00:33→17:11)
[2024-01-21 04:00] VITALS: BP 129/75; PULSE 70; RESP 16; TEMP 36.6; O2SAT 96
[2024-01-21 07:25] VITALS: BP 135/81; PULSE 67; RESP 19; TEMP 36.7
[2024-01-21] MEDS: 0.9 % Sodium Chloride Flush 3 ML SYRINGE IVFLUSH ×3 (09:14→20:17)
[2024-01-21] MEDS: NIFEdipine ER 90 MG TAB.ER.24 PO (09:14)
[2024-01-21] MEDS: Metoprolol Tartrate 50 MG TABLET PO ×2 (09:14→20:17)
[2024-01-21] MEDS: lisinopriL 5 MG TABLET PO (09:14)
[2024-01-21] MEDS: Rivaroxaban 20 MG TABLET PO (09:14)
[2024-01-21] MEDS: cloNIDine HCL 0.1 MG TABLET PO ×3 (09:14→20:17)
[2024-01-21] MEDS: DULoxetine HCl 20 MG CAPSULE.DR PO ×2 (09:20→20:17)
[2024-01-21] MEDS: HYDROmorphone HCl 1 MG/ML SYRINGE 0.5 MG IVPUSH ×2 (09:20→15:20)
--- NOTE | 2024-01-21 12:29 | MHC.CM.PN ---
CM MET WITH PT TO DISCUSS DC PLANNING PT NOW STATING HE WILL CONSIDER STR HE IS AWARE REFERRALS WILL BE MADE AND BED OFFERS WILL BE PRESENTED TO HIM PT AGAIN STATES HE SHOULD END IT BUT AFTER FURTHER DISCUSSION, EXPLAINS HE HAS LOST TWO WIVES AND LOOKS FORWARD TO BEING WITH THEM AGAIN. HE ALSO STATES HE DOES NOT BELIEVE HE WILL BE REUNITED WITH THEM IF HE ENDS HIS OWN LIFE SO CANNOT DO THAT. PER MD ROUNDS PT IS MEDICALLY CLEARED TO DC TODAY DC PENDING STR BED OFFERS REFERRALS ARE OUT, SO FAR TWO SNFS HAVE DECLINED, EIGHT HAVE NOT ANSWERED
--- NOTE | 2024-01-21 13:06 | HO.PM.IMPN ---
Subjective Subjective Date of Service: 01/21/24 Interval History: Seen and evaluated this morning feels better overall, having less diarrhea incidents tolerating diet no other events Review of Systems Review of Systems: Yes all other systems are reviewed and are negative Physical Exam Vital Signs: Vital Signs: Last Vital Signs Temp 98.1 F 01/21/24 07:25 Pulse 67 01/21/24 07:25 Resp 19 01/21/24 07:25 BP 135/81 01/21/24 07:25 Pulse Ox 96 01/21/24 04:00 O2 Del Method Room Air 01/21/24 07:25 O2 Flow Rate 2 01/16/24 13:13 FiO2 95 01/21/24 07:25 Oxygen Flow Rate 2 01/16/24 11:31 BMI result Body Mass Index 24.9 Const: Other: Constitutional : Awake, interactive, not in distress Neck : Normal inspection, Supple Cardiovascular : RRR, no JVP, no lower extremity edema Respiratory : good bilateral air entry, no crackles, wheezes or rhonchi Gastrointestinal: soft, lax, Normal bowel sounds, Non tender Skin : Warm, Dry Neurological : Alert & oriented x3, No focal deficit Objective Data Active Medications Acetaminophen (Acetaminophen 325 Mg Tablet) 650 mg PO Q6H PRN PRN Reason: Pain, Mild (Pain Scale 1-3) Last Admin: 01/19/24 12:20 Dose: 650 mg Documented By: ROSARIO Acetaminophen (Acetaminophen 325 Mg Tablet) 650 mg PO Q6H PRN PRN Reason: Headache/Pain Mild Scale (1-3) Al Hydroxide/Mg Hydroxide (Magnesium Hydrox/Alum Hydrox 30 Ml Oral.Susp) 30 ml PO Q6H PRN PRN Reason: Dyspepsia Last Admin: 01/19/24 18:39 Dose: 30 ml Documented By: ROSARIO Clonidine HCl (Clonidine Hcl 0.1 Mg Tablet) 0.1 mg PO TID [facility]; Protocol Last Admin: 01/21/24 09:14 Dose: 0.1 mg Documented By: PRETTY Duloxetine HCl (Duloxetine Hcl 20 Mg Capsule.Dr) 20 mg PO BID [facility] Last Admin: 01/21/24 09:20 Dose: 20 mg Documented By: PRETTY Hydromorphone HCl (Hydromorphone Hcl 1 Mg/Ml Syringe) 0.5 mg IVPUSH Q6H PRN; Protocol PRN Reason: Pain, Severe (Pain Scale 7-10) Last Admin: 01/21/24 09:20 Dose: 0.5 mg Documented By: PRETTY Hydroxyzine HCl (Hydroxyzine Hcl 25 Mg Tablet) 25 mg PO QID PRN PRN Reason: anxiety/insomnia Last Admin: 01/18/24 20:31 Dose: 25 mg Documented By: CASTILM Lisinopril (Lisinopril 5 Mg Tablet) 5 mg PO DAILY [facility]; Protocol Last Admin: 01/21/24 09:14 Dose: 5 mg Documented By: PRETTY Melatonin (Melatonin 3 Mg Tablet) 6 mg PO BEDTIME PRN PRN Reason: Insomnia Last Admin: 01/20/24 20:45 Dose: 6 mg Documented By: DIONY Methadone HCl (Methadone Hcl 5 Mg Tablet) 5 mg PO TID PRN PRN Reason: Pain, Moderate(Pain Scale 4-6) Last Admin: 01/19/24 09:54 Dose: 5 mg Documented By: ROSARIO Metoprolol Tartrate (Metoprolol Tartrate 50 Mg Tablet) 50 mg PO BID [facility]; Protocol Last Admin: 01/21/24 09:14 Dose: 50 mg Documented By: PRETTY Nifedipine (Nifedipine Er 90 Mg Tab.Er.24) 90 mg PO DAILY [facility]; Protocol Last Admin: 01/21/24 09:14 Dose: 90 mg Documented By: PRETTY Ondansetron HCl (Ondansetron Hcl 4 Mg/2 Ml Vial) 4 mg IVPUSH Q8H PRN PRN Reason: Nausea and Vomiting Last Admin: 01/20/24 17:20 Dose: 4 mg Documented By: SUZANNA Rivaroxaban (Rivaroxaban 20 Mg Tablet) 20 mg PO DAILY [facility] Last Admin: 01/21/24 09:14 Dose: 20 mg Documented By: PRETTY Senna (Sennosides 8.6 Mg Tablet) 17.2 mg PO BID PRN PRN Reason: constipation Sodium Chloride (0.9 % Sodium Chloride Flush 3 Ml Syringe) 3 ml IVFLUSH QSHIFT [facility] Last Admin: 01/21/24 09:14 Dose: 3 ml Documented By: PRETTY Trazodone HCl (Trazodone Hcl 50 Mg Tablet) 50 mg PO BEDTIME [facility] Last Admin: 01/20/24 20:44 Dose: 50 mg Documented By: DIONY Vancomycin HCl (Vancomycin Hcl 125 Mg Capsule) 250 mg PO Q6H [facility] Last Admin: 01/21/24 11:20 Dose: 250 mg Documented By: PRETTY Labs 01/18/24 08:08 01/18/24 08:08 Assessment and Plan (1) C. difficile colitis: Status: Acute (2) Intractable abdominal pain: Status: Acute Plan 68-year-old male with a PMH significant for?paroxysmal AFib on Xarelto, ventricular arrhythmia with AICD, HTN, chronic back pain on chronic opioids, personality disorder, and MDD here with abdominal pain, n/v diarrhea with CT finding of colitis, was treated with infectious colitis about a month ago C Diff colitis, diarrhea better continue PO Vanco ID recommends vanco x 14 days total tolerating Regular diet physical deconditioning PT rec SNF vs home w walker and VNA patient preferred to go to SNF Hypotension on admission d/t diarrhea and dehydration, resolved. Mood disorder w suicidal ideation continue home meds Psych consult rec Cymbalta that he doesn't want, he wants klonopin but to be avoided d/t substance use history, deemed unlikely to act on SI, denies any intention or plan. To DC sitter and keep him on camera CARE team input appreciated Paroxysmal AFib rate controlled Continue metoprolol, Xarelto Chronic back and pain Continue home methadone, oxycodone Elevated LFTs and ALK Phone US show cholelithiasis, CBC size unchanged, tenderness with probe but no obvious cholecystitis surgery recommends no intervention at this time. HTN Better controlled continue metoprolol, clonidine at half usual dose. resume Nifedipine and Lisinopril Continue home antihypertensives DNR/DNI DVT Prophylaxis: On Xarelto need for inpt stay: cdif colitis still having diarrhea and seems not be able to return to assisted living due to C diff with diarrhea with communal bathroom and need of SNF placement Quality Stroke Does the patient have a stroke diagnosis?: No VTE Prior VTE?: No VTE Risk Level:: Medical - moderate - high VTE Device Contraindication: N/A - Device Ordered VTE Drug Contraindication: N/A - Med Ordered
[2024-01-21 15:37] VITALS: BP 122/77; PULSE 71; RESP 18; TEMP 36.7; O2SAT 94
[2024-01-21 15:42] VITALS: BP 127/68; PULSE 54; RESP 20; TEMP 36.5; O2SAT 98
[2024-01-21 19:21] VITALS: BP 127/76; PULSE 80; RESP 20; TEMP 37; O2SAT 94
[2024-01-21] MEDS: methADONE HCl 5 MG TABLET PO (20:16)
[2024-01-21] MEDS: traZODone HCL 50 MG TABLET PO (20:16)
[2024-01-22] MEDS: vancomycin HCL 125 MG CAPSULE 250 MG PO ×3 (01:00→11:38)
[2024-01-22 02:57] VITALS: BP 144/105; PULSE 83; RESP 18; TEMP 36.2; O2SAT 92
[2024-01-22] MEDS: HYDROmorphone HCl 0.5 MG/0.5 ML SYRINGE IVPUSH ×3 (06:00→14:33)
[2024-01-22 07:21] VITALS: BP 130/72; PULSE 70; RESP 14; TEMP 36.1; O2SAT 95
[2024-01-22] MEDS: lisinopriL 5 MG TABLET PO (08:37)
[2024-01-22] MEDS: Rivaroxaban 20 MG TABLET PO (08:37)
[2024-01-22] MEDS: DULoxetine HCl 20 MG CAPSULE.DR PO (08:37)
[2024-01-22] MEDS: 0.9 % Sodium Chloride Flush 3 ML SYRINGE IVFLUSH (08:37)
[2024-01-22] MEDS: NIFEdipine ER 90 MG TAB.ER.24 PO (08:37)
[2024-01-22] MEDS: Metoprolol Tartrate 50 MG TABLET PO (08:37)
[2024-01-22] MEDS: cloNIDine HCL 0.1 MG TABLET PO (08:37)
--- NOTE | 2024-01-22 11:11 | MHC.CM.PN ---
DP: PT HAS BEEN MEDICALLY CLEARED FOR DC BACK TO [facility]. [facility] WELLNESS NURSE CESILIA UPDATED ON RETURN TODAY. [facility] UPDATED ON DC. PT IS IN AGREEMENT WITH THE PLAN. BLS TRANSPORT BOOKED VIA [facility] AT 1:30 PM. [facility] AUTH OBTAINED, TRANSPORT ID #[id number]. IMM DELIVERED
--- NOTE | 2024-01-22 11:19 | PM.DS ---
DS: Providers Provider Date of Service: 01/22/24 Date of admission: 01/16/24 17:03 Primary care physician: Travis Mcarthur MD Consults: 01/17/24 05:10 Consult to Psychiatry Routine Consulting Provider: Psych Covering Reason for consultation: SI 01/17/24 10:56 Consult to General Surgery Routine Consulting Provider: [facility] General Surgeons Reason for consultation: Abd pain, RUQ ? cholecystitis Has provider been notified: No Consult to Infectious Diseases Routine Consulting Provider: [facility] Infectious Disease Reason for consultation: Diarrhea, abd pain + C dif Toxin A Has provider been notified: No 01/19/24 04:57 Consult to Psychiatry Routine Consulting Provider: Psych Covering Reason for consultation: concern for SI Has provider been notified: No 01/19/24 08:18 Consult to Care Team Routine Comment: Reason for consultation: si, medical ready to discharge 01/20/24 16:21 Consult for Sitter Routine Reason for consultation: SI DS: Diagnosis Discharge Diagnosis (1) C. difficile colitis: Status: Acute (2) Intractable abdominal pain: Status: Acute DS: Summary Hospital Course Hospital Course: HPI Pt is a 68-year-old male with a PMH significant for?paroxysmal AFib on Xarelto, ventricular arrhythmia with AICD, HTN, chronic back pain on chronic opioids, personality disorder, and MDD who presents acute onset of abdominal pain since this morning. He describes severe abdominal pain, diffusely and assocated with diarrhea and vomitting, There is no fever, no sick contact and is not attributing it to food, no recent travel. He was in the hospital about a month ago with diarrhea and at that time was treated for colitis with antibiotics. WBC is 17K . A CT of the abdomen and pelvis is noted for residual colonic thickening said to be better than previous. Morphine, Zofran given for comfort. Hospital coruse: Patient presente with abdominal pain and diarrhea and found to have C dif diarrhea and colitis, he was treated while in the hospital initially with IV Flagyl and PO Vancomcyin. Diarrhea has since improved, he has no fever and abdominal exam is bening. ID recommends 14 days of oral Vanco to complete course of C dif treatment. Of note while in hospital, he made comments about not wanted to live. He was seen by Psych and deemed not at risk for self harm. He states that he only states that because he felt sick. He was evaluated by PT team and will need PT\OT on discharge. Noted to have Elevated LFTs and ALK, US show cholelithiasis, CBC size unchanged, tenderness with probe but no obvious cholecystitis. surgery recommends no intervention at this time. Take vancomycin as recommended follow up with PCP in 1-2 weeks Time Attestation Discharge Coordination Time (in mins): 34 Quality: Safe Use of Opioids Does Pt have an Active Cancer Diagnosis on the Problem List?: No Quality: Stroke Does the patient have a stroke diagnosis?: No Physical Exam Vital Signs: Vital Signs: Last Vital Signs Temp 96.9 F 01/22/24 07:21 Pulse 70 01/22/24 07:21 Resp 14 01/22/24 07:21 BP 130/72 01/22/24 07:21 Pulse Ox 95 01/22/24 07:21 O2 Del Method Room Air 01/22/24 07:21 O2 Flow Rate 2 01/16/24 13:13 FiO2 95 01/21/24 07:25 Oxygen Flow Rate 2 01/16/24 11:31 BMI result Body Mass Index 24.9 Const: Other: Constitutional : Awake, interactive, not in distress Neck : Normal inspection, Supple Cardiovascular : RRR, no JVP, no lower extremity edema Respiratory : good bilateral air entry, no crackles, wheezes or rhonchi Gastrointestinal: soft, lax, Normal bowel sounds, Non tender Skin : Warm, Dry Neurological : Alert & oriented x3, No focal deficit DS: Data Imaging Chest x-ray: Radiologist's impression: ITS Impressions Abdomen/Pelvis CT 01/16/24 12:40 IMPRESSION: Previously demonstrated distal colonic wall thickening has likely improved. Marked fecal residue in the colon. The proximal colon is distended. I suspect cholelithiasis and there is a calcification in or near the distal common bile duct. Small opacities in the right lower lung. Given the relatively rapid change infectious or inflammatory etiology is favored. Recommend short interval follow-up CT in 3 months. Fleischner guidelines were followed. Abdomen Ultrasound 01/16/24 16:58 IMPRESSION: Cholelithiasis. The common duct measures 0.8 cm which is slightly greater than expected but has not significantly increased. There is tenderness to transducer pressure over the gallbladder but no localized pericholecystic fluid. The patient should be managed on the basis of the clinical exam, history and laboratory values but cholecystitis could be present Discharge Plan Discharge Anticipated Discharge Date/Time: 01/20/24 10:24 Patient Disposition: Home Health Service Discharge Diagnosis: C dif diarrhea, and colitis Referrals: Forrest LOMBARDO [Outside] - 3-5 Days (HOME SERVICES FOR PHYSICAL THERAPY/OCCUPATIONAL THERAPY- A THERAPIST WILL CALL YOU TO ARRANGE FIRST VISIT.) Travis Mcarthur MD [Primary Care Provider] - 1 Week Discharge Medications: New vancomycin 125 mg Capsule 250 mg PO Q6H Qty: 48 0RF Continued methadone 5 mg tablet 5 mg PO TID oxycodone 10 mg tablet 1 tab PO BID PRN (Reason: Pain) acetaminophen 325 mg Tablet 650 mg PO Q6H PRN (Reason: Headache/Pain Mild Scale (1-3)) Qty: 0 0RF trazodone 50 mg tablet 1 tab PO BEDTIME Qty: 30 0RF nifedipine 90 mg tablet extended release 24hr 1 tab PO DAILY Qty: 30 0RF Hold Instructions: Resume on 04/28/23. hold and moniter blood pressure ,if consistently elevated consider adding nifedipine back. lisinopril 5 mg tablet 1 tab PO DAILY Qty: 30 0RF duloxetine [Cymbalta] 20 mg capsule,delayed release(DR/EC) 20 mg PO BID Qty: 60 0RF Senokot Extra Strength 17.2 mg tablet 17.2 mg PO BID PRN (Reason: constipation) Qty: 30 0RF clonidine HCl 0.2 mg tablet 0.2 mg PO TID Xarelto 20 mg tablet 20 mg PO DAILY Qty: 30 0RF Rx Instructions: must administer with evening meal metoprolol tartrate 50 mg Tablet 50 mg PO BID Qty: 60 0RF Protocol: Hold for SBP/HR < HOLD for SBP < : 90 HOLD for HR < : 60 hydroxyzine HCl 25 mg tablet 25 mg PO QID PRN (Reason: anxiety/insomnia) Discharge Orders: Discharge Order (Routine); Ordered 01/22/24 Ordered By: Timmy Barnes Diet: Advance to usual diet Activity on Discharge: As tolerated Stand Alone Forms: Patient Portal Discharge page Care Plan Goals: Resolution of C dif colits and diarrhea Health Concerns: C diff diarrhea and colitis Plan of Treatment: Take vancomycin as recommended follow up with PCP in 1-2 weeks Assessment: See above Discharge Date/Time: 01/22/24 15:21
--- NOTE | 2024-01-22 12:03 | W.MHC.F2F ---
Service Date Service Date: 01/22/24 Encounter Date of encounter: 01/22/24 Reasons for Services Signs and symptoms assessed: physical deconditioning Reason for physical therapy: home safety and mobility and therapeutic exercises Reason for occupational therapy: home safety and mobility and therapeutic exercises Homebound: Leaving the home is medically contraindicated at this time without the asist of a device and/or another person due th the listed conditions above and below. Reason homebound: unsteady gait / fall risk and unable to drive Certification: Based on the above findings, I certify that this patient is confined to the home and needs intermittent fpc care, physical therapy and/or speech therapy, or continues to need occupational therapy. The patient is under my care, and I have initiated the establishment of the plan of care. The patient will be followed by a physician who will periodically review the plan of care. Time Spent With Patient Time: Total time managing care of this patient today ____ minutes.
== END 2024-01-22 15:21 | disposition home health service (06) | DRG 372 ==
LOC: HO.ED 16:04 → HO.EDOVER 17:18 → HO.S3 19:32
PROVIDERS: Admitting Provider Internal Medicine; Emergency Provider Emergency Medicine; PCP Internal Medicine; Visit Provider Student in an Organized Health Care Education/Training Program
DX: A04.72 Enterocolitis due to Clostridium difficile, not specified as recurrent (principal); F33.1 Major depressive disorder, recurrent, moderate; R45.851 Suicidal ideations; I47.0 Re-entry ventricular arrhythmia; Z66 Do not resuscitate; K80.20 Calculus of gallbladder without cholecystitis without obstruction; I10 Essential (primary) hypertension; G89.29 Other chronic pain; I48.0 Paroxysmal atrial fibrillation; E86.0 Dehydration; I95.9 Hypotension, unspecified; Z20.822 Contact with and (suspected) exposure to COVID-19; Z98.1 Arthrodesis status; Z95.810 Presence of automatic (implantable) cardiac defibrillator; Z79.01 Long term (current) use of anticoagulants; Z79.891 Long term (current) use of opiate analgesic; Z79.899 Other long term (current) drug therapy
CPT/HCPCS: 0241U; 36415; 74176; 76705; 80048; 80053; 80076; 81001; 83690; 84484; 85025; 85027; 87086; 87324; 87493; 92950; 93005; 97116; 97162; 99285; J1170; J1836; J2270; J2405; J2765; S9485

== ENCOUNTER → 2024-01-16 11:36 | Outpatient (BNV) | payer MEDICARE, SELFPAY | PROVIDERS: Admitting Provider Internal Medicine; Emergency Provider Emergency Medicine; PCP Internal Medicine; Visit Provider Internal Medicine Cardiovascular Disease | DX: R10.9 Unspecified abdominal pain (principal) | CPT/HCPCS: 93010 ==

== ENCOUNTER → 2024-01-16 17:03 | Outpatient (BNV) | payer MEDICARE, SELFPAY | PROVIDERS: Admitting Provider Internal Medicine; Emergency Provider Emergency Medicine; PCP Internal Medicine; Visit Provider Internal Medicine | DX: R10.9 Unspecified abdominal pain (principal) | CPT/HCPCS: 99222 ==

== ENCOUNTER → 2024-01-16 17:03 | Outpatient (BNV) | payer MEDICARE, SELFPAY | PROVIDERS: Admitting Provider Internal Medicine; Emergency Provider Emergency Medicine; PCP Internal Medicine; Visit Provider Internal Medicine | DX: A04.72 Enterocolitis due to Clostridium difficile, not specified as recurrent (principal); R10.9 Unspecified abdominal pain | CPT/HCPCS: 99223; 99232; 99233; 99239; 99499; G0180 ==

== ENCOUNTER → 2024-01-16 17:03 | Outpatient (BNV) | payer MEDICARE, SELFPAY | PROVIDERS: Admitting Provider Internal Medicine; Emergency Provider Emergency Medicine; PCP Internal Medicine; Visit Provider Psychiatry & Neurology Psychiatry | DX: F33.1 Major depressive disorder, recurrent, moderate (principal) | CPT/HCPCS: 99222 ==

== ENCOUNTER → 2024-01-16 17:03 | Outpatient (BNV) | payer MEDICARE, SELFPAY | PROVIDERS: Admitting Provider Internal Medicine; Emergency Provider Emergency Medicine; PCP Internal Medicine; Visit Provider Surgery | DX: R10.9 Unspecified abdominal pain (principal) | CPT/HCPCS: 99222 ==

== ENCOUNTER 2024-03-24 20:40 | Emergency (ER) | payer MEDICARE, SELFPAY ==
[2024-03-24 20:50] VITALS: BP 132/73; PULSE 76; RESP 16; TEMP 36.8; O2SAT 96
--- NOTE | 2024-03-24 21:25 | ED.MALEGU ---
HPI - Male Genitourinary General Chief complaint: Urogenital-Male Stated complaint: burning when urinating Time Seen by Provider: 03/24/24 21:20 Source: patient, EMS and old records reviewed Mode of arrival: EMS Limitations: no limitations History of Present Illness ED Provider: Mitra Patel PA-C HPI Narrative: 68-year-old male with a history of atrial fibrillation on Xarelto, history of ventricular arrhythmias s/p ICD, history of chronic pain with multiple surgeries on the back and jaw, history of IV drug abuse, depression, history of C diff colitis in December who presents to the ER for evaluation of pain with urination that started yesterday. Patient denies any blood in his urine, abdominal pain, back pain, nausea, vomiting. He denies history of UTI in the past. MD Complaint: dysuria Onset (ago): day(s) Duration: intermittent Location: penis Severity: moderate Quality: burning Relieving factors: none Exacerbating factors: urination Associated symptoms: Reports dysuria Related Data Sexually active: No Home Medications ?Medication ?Instructions ?Recorded ?Confirmed methadone 5 mg tablet 5 mg PO TID Pain (Scale Score 4-6) 10/21/22 01/16/24 oxycodone 10 mg tablet 1 tab PO BID PRN Pain 10/21/22 01/16/24 clonidine HCl 0.2 mg tablet 0.2 mg PO TID 04/12/23 01/16/24 hydroxyzine HCl 25 mg tablet 25 mg PO QID PRN anxiety/insomnia 12/12/23 01/16/24 Previous Rx's ?Medication ?Instructions ?Recorded acetaminophen 325 mg tablet 650 mg (2 x 325 mg) PO Q6H PRN 10/28/22 Headache/Pain Mild Scale (1-3) #0 tabs lisinopril 5 mg tablet 1 tab PO DAILY #30 tabs 10/28/22 nifedipine 90 mg tablet,extended 1 tab PO DAILY #30 tabs 10/28/22 release 24 hr trazodone 50 mg tablet 1 tab PO BEDTIME #30 tabs 10/28/22 duloxetine 20 mg capsule,delayed 20 mg PO BID #60 caps 12/24/22 release (Cymbalta) metoprolol tartrate 50 mg tablet 50 mg PO BID #60 tabs 04/14/23 rivaroxaban 20 mg tablet (Xarelto) 20 mg PO DAILY #30 tabs 04/14/23 sennosides 17.2 mg tablet (Senokot 17.2 mg PO BID PRN constipation 07/19/23 Extra Strength) #30 tabs vancomycin 125 mg capsule 250 mg (2 x 125 mg) PO Q6H #48 caps 01/19/24 clotrimazole 1 % topical ointment 1 appl topical BID #56.7 grams 03/24/24 Allergies Allergy/AdvReac Type Severity Reaction Status Date / Time ergotamine [ERGOTAMINE] AdvReac Severe NAUSEA Verified 03/24/24 21:55 Review of Systems Review of Systems: Yes all other systems are reviewed and are negative [facility] Past Medical History Medical History History of intravenous drug abuse Presence of combination internal cardiac defibrillator (ICD) and pacemaker Ventricular arrhythmia Opioid dependence Lumbar disc herniation Thoracic disc herniation Cervical disc herniation Opioid abuse Pacemaker HTN (hypertension) Surgical History History of spinal fusion History of hip replacement Family History Family History Mother HTN (hypertension) CHF (congestive heart failure) Social History Social History Household Members: Other Household Members Other:: lives with other roommates Housing: Other Housing Other:: rents an rm in house Do you presently have visiting nurse or other home services: No Unable to assess alcohol history related to: Unknown Alcohol intake: never Comment: 1:1 sitter Patient Tobacco Use Status: Never used Tobacco Second Hand Smoke Exposure: No Substance Use Type: Marijuana Advance Directives: No Advance Directives Information Provided: No Do you have a plan to hurt others: No Plan service: No Current occupational status: retired and disabled Sexual orientation: Straight/Heterosexual Physical Exam Vital Signs: Vital Signs: Last Vital Signs Temp 98.2 F 03/24/24 20:50 Pulse 76 03/24/24 20:50 Resp 16 03/24/24 20:50 BP 132/73 03/24/24 20:50 Pulse Ox 96 03/24/24 20:50 O2 Del Method Room Air 03/24/24 20:50 BMI result Body Mass Index 25.8 Appearance: Alert. Oriented X3. No acute distress. Head: normocephalic, atraumatic. temporal wasting Eyes: Pupils equal, round and reactive to light. ENT: Pharynx normal. No tonsillar swelling or exudate. Neck: Normal inspection. Neck supple. CVS: Normal heart rate and rhythm. Pulses normal. Respiratory: No respiratory distress. Breath sounds normal. chest wall w/ well healed linear scars c/w cutting Abdomen: Soft and nontender. +BS x4 : circumsized penis with erythematous beefy red skin on the shaft with 2 small linear abrasions/skin tears/cracked skin Skin: Skin warm and dry. Normal skin color. Normal skin turgor. No rashes. Extremities: No lower extremity edema. No joint swelling. Neuro/psych: Oriented X 3. No motor deficit. No sensory deficit. CN II-XII intact. Normal speech and cognition. Medical Decision Making Medical Decision Making [facility] Narrative: 68-year-old male presents to the ER for evaluation of pain with urination started yesterday. On examination patient has superficial skin tears / abrasions on the shaft of his penis. He denies any aggressive masturbation, no recent masturbation at all per his report. Skin is erythematous and beefy red. Will treat for likely fungal infection. Urinalysis is negative for infection. No other systemic signs of infection. He is stable for discharge back to the facility Differential Diagnosis Differential Diagnoses: The differential diagnosis associated with the presentation includes UTI, pyelonephritis, kidney stone, fungal infection, trauma for masturbation Lab Data [facility] Lab Attestation statement: I reviewed the patient's lab results. no evidence of UTI Labs: Lab Results 03/24/24 Range/Units 21:38 Urine Color Yellow Urine Appearance Cloudy Urine pH 6.0 (5.0-9.0) Ur Specific Donovan <= 1.005 (1.005-1.025) Urine Protein Negative (Neg-Trace) mg/dL Urine Glucose (UA) Negative (Negative) mg/dL Urine Ketones Negative (Negative) mg/dL Urine Blood Negative (Negative) Urine Nitrite Negative (Negative) Ur Leukocyte Esterase Negative (Negative) Independent Historian Clinical information obtained from an independent historian. History obtained from or confirmed by: EMS External Record Review External record reviewed: Inpatient record, Outpatient record, Prior outpatient labs and Prior outpatient radiology Prescription Management I considered prescription management with: Pain Medication and Antibiotic Chronic Conditions Patient?s care impacted by: Other ( AFib) Critical Care Time Critical Care Time Critical Care Time: No Discharge Plan Discharge Clinical Impression: Penile rash Patient Disposition: Home, Self-Care Instructions: Acute Rash (ED) Additional Instructions: Your urine test was negative for any type of infection use the prescribed ointment to the area on your penis. Do your best to avoid getting urine in the open sores. Follow-up with your doctor. Prescriptions: New clotrimazole 1 % ointment 1 appl topical BID Qty: 56.7 0RF No Action methadone 5 mg tablet 5 mg PO TID oxycodone 10 mg tablet 1 tab PO BID PRN (Reason: Pain) acetaminophen 325 mg Tablet 650 mg PO Q6H PRN (Reason: Headache/Pain Mild Scale (1-3)) Qty: 0 0RF trazodone 50 mg tablet 1 tab PO BEDTIME Qty: 30 0RF nifedipine 90 mg tablet extended release 24hr 1 tab PO DAILY Qty: 30 0RF Hold Instructions: Resume on 04/28/23. hold and moniter blood pressure ,if consistently elevated consider adding nifedipine back. lisinopril 5 mg tablet 1 tab PO DAILY Qty: 30 0RF duloxetine [Cymbalta] 20 mg capsule,delayed release(DR/EC) 20 mg PO BID Qty: 60 0RF Senokot Extra Strength 17.2 mg tablet 17.2 mg PO BID PRN (Reason: constipation) Qty: 30 0RF vancomycin 125 mg Capsule 250 mg PO Q6H Qty: 48 0RF clonidine HCl 0.2 mg tablet 0.2 mg PO TID Xarelto 20 mg tablet 20 mg PO DAILY Qty: 30 0RF Rx Instructions: must administer with evening meal metoprolol tartrate 50 mg Tablet 50 mg PO BID Qty: 60 0RF Protocol: Hold for SBP/HR < HOLD for SBP < : 90 HOLD for HR < : 60 hydroxyzine HCl 25 mg tablet 25 mg PO QID PRN (Reason: anxiety/insomnia) Print Language: Italian
[2024-03-24 21:45] LABS: Appearance Urine Cloudy; Color Urine Yellow; Glucose Urine UA Negative (Negative); Leukocyte Esterase Urine Negative (Negative); Nitrite Urine Negative (Negative); Specific Gravity - Urine <= 1.005 (1.005-1.025); Urine Blood Negative (Negative); Urine Ketones Negative (Negative); Urine Protein Negative (Neg-Trace)
[2024-03-24 21:53] VITALS: BMI 25.8
[2024-03-24 23:05] VITALS: BP 115/77; PULSE 69; RESP 16; TEMP 36.4; O2SAT 98
--- NOTE | 2024-03-24 23:06 | PC.NURSE ---
pt assessed at d/c, reported mild pain, EMS here to take pt back to independent home
== END 2024-03-24 23:08 | disposition home or self-care (01) ==
PROVIDERS: Physician Assistant; Emergency Provider Emergency Medicine; PCP Orthopaedic Surgery
DX: N48.21 Abscess of corpus cavernosum and penis (principal); R30.9 Painful micturition, unspecified
CPT/HCPCS: 81003; 99283

== ENCOUNTER 2024-04-27 22:04 | Emergency (ER) | payer MEDICARE, SELFPAY ==
--- NOTE | 2024-04-27 | ECG_ITS ---
Test Reason : SOB Blood Pressure : / mmHG Vent. Rate : 072 BPM Atrial Rate : 000 BPM P-R Int : 000 ms QRS Dur : 088 ms QT Int : 402 ms P-R-T Axes : 000 050 068 degrees QTc Int : 440 ms Atrial-paced rhythm Septal infarct , age undetermined Abnormal ECG When compared with ECG of 16-JAN-2024 11:51, Previous ECG has undetermined rhythm, needs review Nonspecific T wave abnormality, improved in Inferior leads Nonspecific T wave abnormality no longer evident in Anterolateral leads QT has shortened Referred By: Duc Wagner Electronically Signed By:BASSEM ZHOU MD
--- NOTE | ~2024-04-27 | CT_ITS ---
EXAMINATION: CT ANGIOGRAM OF THE CHEST WITH AND WITHOUT CONTRAST (CT PULMONARY ANGIOGRAM FOR PE) CLINICAL INFORMATION: Reason for Exam Acute shortness of breath?PE COMPARISON: Previous chest x-ray from earlier the same day TECHNIQUE: Prior to contrast administration, noncontrast localization images were obtained. Subsequently, multidetector volumetric imaging was performed from the thoracic inlet to below the diaphragms following the administration of 65 mL Omnipaque 350 intravenous contrast. No contrast reaction reported Sagittal, coronal, and MIP oblique sagittal reformatted images were obtained on the CT workstation, uploaded to PACS, and reviewed. This CT examination was performed using dose optimization techniques as appropriate, variously including the following: *Automated exposure control *Adjustment of mA and/or kV according to patient size (this includes techniques or standardized protocols for targeted exams where dose is matched to indication/reason for exam; i.e. extremities or head) *Use of iterative reconstruction technique Total exam dose-length product 3-4 mGy-cm FINDINGS: QUALITY OF STUDY/CONTRAST BOLUS: Satisfactory. PULMONARY ARTERIES: No pulmonary emboli. THORACIC AORTA: No aneurysm. LUNG: Well-inflated lungs suggestive of COPD. Mild bronchial wall thickening, increased peribronchial attenuation and clustered small peribronchial nodules or tree in bud appearance suggestive of airways disease in the inferior segment of the lingula and right middle lobe. No evidence of pneumonia. No endobronchial or endotracheal lesion. PLEURA: No pleural effusion or pneumothorax. MEDIASTINUM: Normal heart size. Left subclavian pacemaker AICD devices project over right atrium and right ventricle. No pericardial effusion. No hilar or mediastinal lymphadenopathy. No evidence of septal bowing or right heart strain. CORONARY ARTERY CALCIFICATION: None visualized on this study. CHEST WALL/AXILLA: No axillary or internal mammary lymphadenopathy. OSSEOUS STRUCTURES: Degenerative changes of the spine. Mild old T8 vertebral body compression fracture. Old right rib fractures. UPPER ABDOMEN: Constipation. No reflux of contrast into the hepatic veins to suggest elevated right heart pressures. CT/CT angio chest PE protocol IMPRESSION: No evidence of pulmonary embolism. Mild airways disease in the lingula and right middle lobe. No evidence of pneumonia. Severe constipation. VTE: negative
--- NOTE | ~2024-04-27 | XR_ITS ---
EXAMINATION: XR CHEST CLINICAL INFORMATION: Dypsnea. Cough COMPARISON: Previous chest x-ray August 2023 TECHNIQUE: Frontal view of the chest was obtained. FINDINGS: Left subclavian pacemaker AICD device with leads projecting over the right atrium and right ventricle. Cardiac and mediastinal contours are stable. Lungs are well-inflated. The lungs are clear. No pleural effusion or pneumothorax. Degenerative changes of the spine. XR/XR chest 1V IMPRESSION: Well inflated lungs. No evidence for acute disease in the chest.
[2024-04-27 22:10] VITALS: BP 104/70; BP 98/64; PULSE 71; PULSE 87; RESP 20; O2SAT 92; O2SAT 99; BMI 20.1
--- NOTE | 2024-04-27 22:19 | ED_ITS ---
HPI - SOB/Dyspnea General Chief Complaint: Dyspnea Stated Complaint: SOB Time Seen by Provider: 04/27/24 22:08 Source: patient and EMS Mode of arrival: EMS Limitations: no limitations History of Present Illness ED Provider: pattie RITCHIE Narrative: Patient's history of paroxysmal atrial fibrillation on metoprolol and Xarelto status post ICD placed for ventricular arrhythmias no known history of COPD comes here for increased shortness of breath started earlier today feels chest tight no palpitation no fever no chills patient was placed on CPAP by EMS was saturating high 80s when EMS reached patient is not on oxygen Related Data Home Medications ?Medication ?Instructions ?Recorded ?Confirmed methadone 5 mg tablet 5 mg PO TID Pain (Scale Score 4-6) 10/21/22 01/16/24 oxycodone 10 mg tablet 1 tab PO BID PRN Pain 10/21/22 01/16/24 clonidine HCl 0.2 mg tablet 0.2 mg PO TID 04/12/23 01/16/24 hydroxyzine HCl 25 mg tablet 25 mg PO QID PRN anxiety/insomnia 12/12/23 01/16/24 Previous Rx's ?Medication ?Instructions ?Recorded acetaminophen 325 mg tablet 650 mg (2 x 325 mg) PO Q6H PRN 10/28/22 Headache/Pain Mild Scale (1-3) #0 tabs lisinopril 5 mg tablet 1 tab PO DAILY #30 tabs 10/28/22 nifedipine 90 mg tablet,extended 1 tab PO DAILY #30 tabs 10/28/22 release 24 hr trazodone 50 mg tablet 1 tab PO BEDTIME #30 tabs 10/28/22 duloxetine 20 mg capsule,delayed 20 mg PO BID #60 caps 12/24/22 release (Cymbalta) metoprolol tartrate 50 mg tablet 50 mg PO BID #60 tabs 04/14/23 rivaroxaban 20 mg tablet (Xarelto) 20 mg PO DAILY #30 tabs 04/14/23 sennosides 17.2 mg tablet (Senokot 17.2 mg PO BID PRN constipation 07/19/23 Extra Strength) #30 tabs vancomycin 125 mg capsule 250 mg (2 x 125 mg) PO Q6H #48 caps 01/19/24 clotrimazole 1 % topical ointment 1 appl topical BID #56.7 grams 03/24/24 Allergies Allergy/AdvReac Type Severity Reaction Status Date / Time ergotamine [ERGOTAMINE] AdvReac Severe NAUSEA Verified 04/27/24 22:12 Review of Systems 2 Review of Systems: Yes all other systems are reviewed and are negative [facility] Past Medical History Medical History Paroxysmal atrial fibrillation MDD (major depressive disorder), recurrent episode, moderate History of intravenous drug abuse Presence of combination internal cardiac defibrillator (ICD) and pacemaker Ventricular arrhythmia Opioid dependence Lumbar disc herniation Thoracic disc herniation Cervical disc herniation Opioid abuse Pacemaker HTN (hypertension) Surgical History History of spinal fusion History of hip replacement Family History Family History Mother HTN (hypertension) CHF (congestive heart failure) Social History Social History Household Members: Other Household Members Other:: lives with other roommates Housing: Other Housing Other:: rents an rm in house Do you presently have visiting nurse or other home services: No Unable to assess alcohol history related to: Unknown Alcohol intake: never Comment: 1:1 sitter Patient Tobacco Use Status: Never used Tobacco Second Hand Smoke Exposure: No Substance Use Type: Marijuana Advance Directives: No Advance Directives Information Provided: No Do you have a plan to hurt others: No Plan service: No Current occupational status: retired and disabled Sexual orientation: Straight/Heterosexual Physical Exam 2 Vital Signs: Vital Signs: Last Vital Signs Pulse 71 04/27/24 22:10 Resp 20 04/27/24 22:10 BP 104/70 04/27/24 22:10 Pulse Ox 92 04/27/24 22:10 O2 Del Method Room Air 04/27/24 22:10 BMI result Body Mass Index 20.1 Appearance: Alert. Oriented X3. In moderate respiratory distress Eyes: No pallor or icterus ENT: Pharynx normal. Oral Mucosa moist Neck: Normal inspection. Neck supple. CVS: Normal heart rate and rhythm. Pulses normal. Respiratory: No respiratory distress. Equal air entry bilateral, bilateral decreased air and Abdomen: Soft and nontender. Bowel sounds are present, no mass palpable, no CVA tenderness Skin: Skin warm and dry. Normal skin color. Normal skin turgor. Extremities: No lower extremity edema. No calf tenderness Neuro: Oriented X 3. No motor deficit. No sensory deficit.No cerebellar signs , cranial nerves II-XII intact Medications Administered Discontinued Medications Generic Name Dose Route Start Last Admin Trade Name Freq PRN Reason Stop Dose Admin Iohexol 65 ml 04/27/24 23:28 04/27/24 23:29 Iohexol 350 Mg/Ml 100 Ml Infus..Btl IV 04/27/24 23:29 65 ml ONCE ONE Administration Medical Decision Making Medical Decision Making [facility] Narrative: Patient with acute shortness of breath etiology not clear workup is negative for pneumonia/PE/CHF. During stay in the ER patient improved saturating 94% on room air saying that he is suicidal and more depressed history of same in the past will consult care team medically cleared possibly had acute bronchitis Differential Diagnosis Differential Diagnoses: The differential diagnosis associated with the presentation includes Acute bronchitis/CHF ACS/pneumonia/PE Admission/Observation Consideration of admission/observation: Escalation of care including admission/observation considered Lab Data [facility] Lab Attestation statement: I reviewed the patient's lab results. 04/27/24 22:25 04/27/24 22:25 Labs: Lab Results 04/27/24 04/27/24 Range/Units 22:25 22:30 WBC 10.2 (4.8-10.8) X10*3/uL RBC 4.75 (4.60-5.80) X10*6/uL Hgb 13.7 L (14.0-18.0) g/dl Hct 40.7 L (42.0-52.0) % MCV 85.7 (80.0-98.0) fL MCH 28.8 (27.0-33.0) pg MCHC 33.7 (31.0-36.0) g/dl RDW 13.0 (11.0-16.0) % Plt Count 197 D (160-400) X10*3/uL MPV 10.3 (9.4-12.4) fL Immature Gran % (Auto) 0.2 (0.0-0.4) % Neut % (Auto) 70.1 (45-73) % Lymph % (Auto) 19.6 L (20-40) % [place]on % (Auto) 7.3 (2-11) % Eos % (Auto) 2.6 (0-4) % Baso % (Auto) 0.2 (0-2) % Lymph # (Auto) 2.0 (1.2-4.9) X10*3/uL [place] # (Auto) 0.7 (0.1-1.2) X10*3/uL Eos # (Auto) 0.3 (0.0-0.4) X10*3/uL Baso # (Auto) 0.0 (0.0-0.2) X10*3/uL Abs Immat Gran (auto) 0.02 (0.00-0.03) X10*3/uL Absolute Neuts (auto) 7.2 (2.0-8.3) x10*3/uL Absolute Nucleated RBC 0.000 (0.0-0.012) X10*3/uL Nucleated RBC % (auto) 0.0 (0.0-0.2) /100WBC VBG pH 7.33 (7.32-7.43) VBG pCO2 53 mmHg VBG pO2 39 mmHg VBG HCO3 28 H (22-26) mmol/L VBG O2 Saturation 59.0 % VBG Base Excess 1.6 mmol/L Sodium 137 (135-145) mmol/L Potassium 4.3 (3.3-5.1) mmol/L Chloride 103 (96-108) mmol/L Carbon Dioxide 26 (22-29) mmol/L Anion Gap 12 (12-20) BUN 15 (9-16) mg/dL Creatinine 0.91 (0.5-1.4) mg/dL Estim Creat Clear Calc 72.7 Estimated GFR > 60 Random Glucose 102 (60-115) mg/dL Lactic Acid 0.9 (0.5-2.0) mmol/L Calcium 9.8 D (8.4-10.2) mg/dL Magnesium 2.0 (1.6-2.6) mg/dL Total Bilirubin 0.2 (0.0-1.0) mg/dL AST 19 (5-37) U/L ALT 8 (0-40) U/L Alkaline Phosphatase 76 (39-117) U/L Troponin I High Sens 3.3 (<3.5-35.0) ng/L B-Natriuretic Peptide 128 H (<100) pg/mL Total Protein 8.5 H (6.5-8.0) g/dL Albumin 4.3 (3.5-5.0) g/dL Lipase 13 (8-78) U/L Influenza Type A (PCR) NEGATIVE (Negative) Influenza Type B (PCR) NEGATIVE (Negative) RSV RNA Qual (PCR) NEGATIVE (Negative) SARS-CoV-2 RNA (RT-PCR) NEGATIVE (Negative) Independent Interpretation I performed an independent interpretation of an: EKG and CT Scan Interpretation: Normal sinus rhythm heart rate 72 beats per minute normal intervals normal axis no acute ST-T changes no acute ischemia Radiology Impression Discussion of test interpretation with radiology: I have reviewed the radiologist's reading. Discharge Plan Discharge Clinical Impression: Passive suicidal ideations, Depressive disorder, Acute bronchitis Patient Disposition: Still a Patient Prescriptions: No Action methadone 5 mg tablet 5 mg PO TID oxycodone 10 mg tablet 1 tab PO BID PRN (Reason: Pain) acetaminophen 325 mg Tablet 650 mg PO Q6H PRN (Reason: Headache/Pain Mild Scale (1-3)) Qty: 0 0RF trazodone 50 mg tablet 1 tab PO BEDTIME Qty: 30 0RF nifedipine 90 mg tablet extended release 24hr 1 tab PO DAILY Qty: 30 0RF Hold Instructions: Resume on 04/28/23. hold and moniter blood pressure ,if consistently elevated consider adding nifedipine back. lisinopril 5 mg tablet 1 tab PO DAILY Qty: 30 0RF duloxetine [Cymbalta] 20 mg capsule,delayed release(DR/EC) 20 mg PO BID Qty: 60 0RF Senokot Extra Strength 17.2 mg tablet 17.2 mg PO BID PRN (Reason: constipation) Qty: 30 0RF vancomycin 125 mg Capsule 250 mg PO Q6H Qty: 48 0RF clonidine HCl 0.2 mg tablet 0.2 mg PO TID Xarelto 20 mg tablet 20 mg PO DAILY Qty: 30 0RF Rx Instructions: must administer with evening meal metoprolol tartrate 50 mg Tablet 50 mg PO BID Qty: 60 0RF Protocol: Hold for SBP/HR < HOLD for SBP < : 90 HOLD for HR < : 60 hydroxyzine HCl 25 mg tablet 25 mg PO QID PRN (Reason: anxiety/insomnia) clotrimazole 1 % ointment 1 appl topical BID Qty: 56.7 0RF Print Language: Sinhala
[2024-04-27 22:33] LABS: MANUAL DIFF FLAG NO
[2024-04-27 22:35] LABS: Basophils Percent Auto 0.2 % (0-2); Eosinophils Absolute Auto 0.3 X10*3/uL (0.0-0.4); Eosinophils Percent Auto 2.6 % (0-4); Hematocrit 40.7 % (42.0-52.0); Hemoglobin 13.7 g/dl (14.0-18.0); Imm Gran Abs Auto 0.02 X10*3/uL (0.00-0.03); Imm Gran Pct Auto 0.2 % (0.0-0.4); Lymphocytes Percent Auto 19.6 % (20-40); Mean Corpuscular HGB Conc 33.7 g/dl (31.0-36.0); Mean Corpuscular Hemoglobin 28.8 pg (27.0-33.0); Mean Corpuscular Volume 85.7 fL (80.0-98.0); Mean Platelet Volume 10.3 fL (9.4-12.4); Monocytes Absolute Auto 0.7 X10*3/uL (0.1-1.2); Monocytes Percent Auto 7.3 % (2-11); Neutrophils Absolute Auto 7.2 x10*3/uL (2.0-8.3); Neutrophils Percent Auto 70.1 % (45-73); Platelet Count 197 X10*3/uL (160-400); Red Blood Count 4.75 X10*6/uL (4.60-5.80); White Blood Count 10.2 X10*3/uL (4.8-10.8)
[2024-04-27 22:38] LABS: VBG Base Excess 1.6 mmol/L; VBG HCO3 28 mmol/L (22-26); VBG pCO2 53 mmHg; VBG pH 7.33 (7.32-7.43); VBG pO2 39 mmHg
[2024-04-27 22:51] LABS: Lactic Acid 0.9 mmol/L (0.5-2.0)
[2024-04-27 22:56] LABS: Alanine Aminotransferase 8 U/L (0-40); Albumin Level 4.3 g/dL (3.5-5.0); Alkaline Phosphatase 76 U/L (39-117); Anion Gap 12 (12-20); Aspartate Amino Transferase 19 U/L (5-37); Bilirubin Total 0.2 mg/dL (0.0-1.0); Blood Urea Nitrogen 15 mg/dL (9-16); Calcium 9.8 mg/dL (8.4-10.2); Carbon Dioxide 26 mmol/L (22-29); Chloride 103 mmol/L (96-108); Creatinine Clr Calc Pharmacy 72.7; Estimated Glomerular Filt Rate > 60; Glucose Random 102 mg/dL (60-115); Lipase 13 U/L (8-78); Potassium 4.3 mmol/L (3.3-5.1); Sodium 137 mmol/L (135-145); Total Protein 8.5 g/dL (6.5-8.0)
[2024-04-27 22:57] LABS: Venous Blood Gas Refer to POC result
[2024-04-27 22:59] LABS: B Type Natriuretic Peptide 128 pg/mL (<100); Troponin-I High Sensitivity 3.3 ng/L (<3.5-35.0)
--- NOTE | 2024-04-27 23:00 | MHC.EDTECH ---
Mirella zelaya filomena 2nd cultures, garcia Zhang filomena the first set and the rest of the blood, I sent all before blood hemolyzed
[2024-04-27 23:13] LABS: Influenza A PCR NEGATIVE (Negative); Influenza B PCR NEGATIVE (Negative); Resp Syncy Virus RNA Qual PCR NEGATIVE (Negative); SARS COV2 PCR INHOUSE NEGATIVE (Negative)
[2024-04-27] MEDS: iohexoL 350 MG/ML 100 ML INFUS..BTL 65 ML IV (23:29)
[2024-04-28 02:00] VITALS: PULSE 57; RESP 12; O2SAT 95
[2024-04-28 04:00] VITALS: PULSE 65; RESP 15; O2SAT 94
[2024-04-28 06:14] VITALS: BP 125/75; PULSE 69; RESP 11; O2SAT 96
--- NOTE | 2024-04-28 07:03 | PC.NURSE ---
charting done on paper d/t down time. please refer to paper chart for more information
[2024-04-28 07:51] VITALS: BP 115/82; PULSE 71; RESP 20; TEMP 36.4; O2SAT 100
[2024-04-28 07:55] LABS: INTERNATIONAL NORM RATIO 1.3 (0.9-1.1); Prothrombin Time 15.7 SEC (11.1-13.3)
[2024-04-28 09:55] VITALS: BP 114/77; PULSE 72; RESP 18; TEMP 36.8; O2SAT 97
== END 2024-04-28 10:09 | disposition home or self-care (01) ==
PROVIDERS: Emergency Provider Internal Medicine
DX: F32.A Depression, unspecified (principal); R45.851 Suicidal ideations; J20.9 Acute bronchitis, unspecified; R06.02 Shortness of breath; I48.0 Paroxysmal atrial fibrillation; J44.9 Chronic obstructive pulmonary disease, unspecified; F11.20 Opioid dependence, uncomplicated; Z79.01 Long term (current) use of anticoagulants; Z95.0 Presence of cardiac pacemaker; Z03.818 Encounter for observation for suspected exposure to other biological agents ruled out; Z79.899 Other long term (current) drug therapy
CPT/HCPCS: 0241U; 36415; 71045; 71275; 80053; 82803; 83605; 83690; 83735; 83880; 84484; 85025; 85610; 85730; 87040; 93005; 99284; Q9967; S9485

== ENCOUNTER → 2024-04-27 22:07 | Outpatient (BNV) | payer MEDICARE, SELFPAY | PROVIDERS: Emergency Provider Internal Medicine; Visit Provider Internal Medicine Cardiovascular Disease | DX: R06.02 Shortness of breath (principal) | CPT/HCPCS: 93010 ==

== ENCOUNTER 2024-05-01 09:48 | Emergency (ER) | payer MEDICARE, SELFPAY ==
--- NOTE | ~2024-05-01 | XR_ITS ---
EXAMINATION: XR CHEST CLINICAL INFORMATION: Fall with left hip pain. COMPARISON: Chest radiograph 04/27/2024. TECHNIQUE: Frontal view of the chest was obtained. FINDINGS: Again noted is a left chest wall dual-lead pacemaker/defibrillator with leads in good position. No significant abnormality is noted involving the heart, lungs, mediastinum, bony thorax or soft tissues. No interval change compared with 04/27/2024. XR/XR chest 1V IMPRESSION: Unremarkable examination.
--- NOTE | ~2024-05-01 | XR_ITS ---
EXAMINATION: XR HIP, LEFT CLINICAL INFORMATION: Status post total hip replacement with fall and hip pain COMPARISON: CT abdomen pelvis 01/16/2024, left hip 09/07/2014 TECHNIQUE: Single view pelvis with 2 additional views of the left hip. FINDINGS: Bilateral hip prostheses are present. No acute fractures are seen. No evidence of prosthesis loosening. Prosthetic components appear intact. There is a chronic well ossified bone fragment seen superolateral to the left femoral acetabular joint which has been present in the past better demonstrated on prior CTs (for example 01/16/2024 series 7:47). XR/XR hip LT min 2V IMPRESSION: No acute fractures are seen. Bilateral hip prostheses are present.
[2024-05-01 09:57] VITALS: BP 106/66; BP 86/49; PULSE 74; PULSE 85; RESP 18; TEMP 36.8; O2SAT 92; O2SAT 97; BMI 19.6
--- NOTE | 2024-05-01 10:02 | ECG_ITS ---
Test Reason : FALL Blood Pressure : / mmHG Vent. Rate : 072 BPM Atrial Rate : 072 BPM P-R Int : 248 ms QRS Dur : 096 ms QT Int : 406 ms P-R-T Axes : 090 043 013 degrees QTc Int : 444 ms Sinus rhythm with 1st degree A-V block Septal infarct (cited on or before 27-APR-2024) Abnormal ECG When compared with ECG of 27-APR-2024 22:07, No significant changes seen Referred By: Alexis Whaley Electronically Signed By:ASTER BRENNAN
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
[2024-05-01] MEDS: 0.9 % Sodium Chloride 1,000 ML 999 ML IV (10:23)
[2024-05-01 10:25] LABS: MANUAL DIFF FLAG NO
[2024-05-01 10:26] LABS: Basophils Percent Auto 0.4 % (0-2); Eosinophils Absolute Auto 0.1 X10*3/uL (0.0-0.4); Eosinophils Percent Auto 1.4 % (0-4); Hematocrit 33.3 % (42.0-52.0); Hemoglobin 11.3 g/dl (14.0-18.0); Imm Gran Abs Auto 0.02 X10*3/uL (0.00-0.03); Imm Gran Pct Auto 0.2 % (0.0-0.4); Lymphocytes Absolute Auto 1.8 X10*3/uL (1.2-4.9); Lymphocytes Percent Auto 22.9 % (20-40); Mean Corpuscular HGB Conc 33.9 g/dl (31.0-36.0); Mean Corpuscular Hemoglobin 29.2 pg (27.0-33.0); Mean Platelet Volume 11.2 fL (9.4-12.4); Monocytes Absolute Auto 0.8 X10*3/uL (0.1-1.2); Monocytes Percent Auto 9.8 % (2-11); Neutrophils Absolute Auto 5.3 x10*3/uL (2.0-8.3); Neutrophils Percent Auto 65.3 % (45-73); Platelet Count 159 X10*3/uL (160-400); Red Blood Count 3.87 X10*6/uL (4.60-5.80); Red Cell Distribution Width 13.2 % (11.0-16.0)
[2024-05-01 11:22] LABS: Alanine Aminotransferase 7 U/L (0-40); Albumin Level 3.7 g/dL (3.5-5.0); Alkaline Phosphatase 60 U/L (39-117); Anion Gap 12 (12-20); Aspartate Amino Transferase 14 U/L (5-37); Bilirubin Direct 0.2 mg/dL (0.0-0.5); Bilirubin Total 0.4 mg/dL (0.0-1.0); Blood Urea Nitrogen 17 mg/dL (9-16); Calcium 9.2 mg/dL (8.4-10.2); Carbon Dioxide 24 mmol/L (22-29); Chloride 105 mmol/L (96-108); Creatinine Clr Calc Pharmacy 79.9; Estimated Glomerular Filt Rate > 60; Glucose Random 84 mg/dL (60-115); Lipase 11 U/L (8-78); Potassium 3.9 mmol/L (3.3-5.1); Sodium 137 mmol/L (135-145); Total Protein 7.2 g/dL (6.5-8.0)
[2024-05-01 11:29] LABS: Troponin-I High Sensitivity 4.2 ng/L (<3.5-35.0)
[2024-05-01 11:42] VITALS: BP 96/60; PULSE 70; RESP 18; O2SAT 97
[2024-05-01 13:34] VITALS: BP 103/47; PULSE 70; RESP 18; TEMP 37.1; O2SAT 97
[2024-05-01 16:45] VITALS: BP 114/71; PULSE 70; RESP 16; TEMP 36.9; O2SAT 95
--- NOTE | 2024-05-01 16:55 | PC.NURSE ---
spoke to [facility] staff, gave RN report, w/ recommendation to follow up with PCP to adjust BP meds. Confirmed no new fracture/ old hip replacements look ok via xray
[2024-05-01 18:59] VITALS: BP 114/71; PULSE 70; RESP 16; TEMP 36.9; O2SAT 95
== END 2024-05-01 19:00 | disposition home or self-care (01) ==
PROVIDERS: Emergency Provider Emergency Medicine; PCP Internal Medicine
DX: S79.912A Unspecified injury of left hip, initial encounter (principal); M25.552 Pain in left hip; I44.0 Atrioventricular block, first degree; R94.31 Abnormal electrocardiogram [ECG] [EKG]; R11.2 Nausea with vomiting, unspecified; W01.10XA Fall on same level from slipping, tripping and stumbling with subsequent striking against unspecified object, initial encounter; Y93.9 Activity, unspecified; Y92.9 Unspecified place or not applicable; Y99.8 Other external cause status; Z79.899 Other long term (current) drug therapy
CPT/HCPCS: 36415; 71045; 73502; 80048; 80076; 83690; 84484; 85025; 93005; 96360; 96361; 99284; 99285

== ENCOUNTER → 2024-05-01 10:02 | Outpatient (BNV) | payer MEDICARE, SELFPAY | PROVIDERS: Emergency Provider Emergency Medicine; PCP Internal Medicine; Visit Provider Internal Medicine | DX: R94.31 Abnormal electrocardiogram [ECG] [EKG] (principal) | CPT/HCPCS: 93010 ==

== ENCOUNTER 2024-07-04 11:15 | Emergency (ER) | payer MEDICARE, SELFPAY ==
[2024-07-04] VITALS (8 sets, daily range): BP systolic 100–116; BP diastolic 54–76; PULSE 70–74; RESP 16–18; TEMP 36.3–37.1; O2SAT 90–96; BMI 22.1
--- NOTE | ~2024-07-04 | CT_ITS ---
EXAMINATION: CT ABDOMEN AND PELVIS WITH CONTRAST CLINICAL INFORMATION: diffuse abd pain COMPARISON: None. TECHNIQUE: Multidetector volumetric imaging was performed from the superior aspect of the liver through the pubic symphysis following administration of 85 mL Omnipaque 300 intravenous contrast. Sagittal and coronal reformatted images were obtained on the technologist workstation.. This CT examination was performed using dose optimization techniques as appropriate, variously including the following: *Automated exposure control *Adjustment of mA and/or kV according to patient size (this includes techniques or standardized protocols for targeted exams where dose is matched to indication/reason for exam; i.e. extremities or head) *Use of iterative reconstruction technique DLP: 613 mGy-cm FINDINGS: LUNG BASES: Mild dependent atelectasis at the right lung base . Pacemaker lead. LIVER, GALLBLADDER, AND BILIARY TREE: The liver is normal in size, shape, and attenuation. No focal hepatic lesion or biliary ductal dilatation is present. Gallstone in the dependent aspect of the gallbladder. No gallbladder wall thickening or pericholecystic inflammatory change. PANCREAS: Atrophic. SPLEEN: Unremarkable. ADRENAL GLANDS: Unremarkable. KIDNEYS AND URETERS: The kidneys are normal in size, shape, and attenuation. Renal cortical cysts bilaterally. Tiny nonobstructing calculi in the lower pole collecting system of the right kidney. No hydronephrosis, hydroureter, or perinephric stranding. No ureteric calculi. BLADDER: Unremarkable. GASTROINTESTINAL TRACT: Colon is tortuous with a few scattered colonic diverticula but no colonic wall thickening or pericolonic inflammatory change to suggest diverticulitis. ABDOMINAL WALL: No significant hernia is appreciated. LYMPHOVASCULAR STRUCTURES: Vascular calcification within the aortoiliac system. No bulky adenopathy PELVIC VISCERA: Not well delineated due to beam hardening artifact from the bilateral hip prostheses OSSEOUS STRUCTURES: Multilevel degenerative changes in spine CT/CT abdomen pelvis w IV con IMPRESSION: Chronic appearing changes as described above. I do not appreciate any acute intra-abdominal process. Electronically signed by: Eleno Nagel MD 07/04/2024 04:04 PM EDT
--- NOTE | ~2024-07-04 | XR_ITS ---
EXAMINATION: XR CHEST CLINICAL INFORMATION: Hypoxia COMPARISON: Chest x-ray on 05/01/2024 TECHNIQUE: Frontal view of the chest was obtained. FINDINGS: The cardiac silhouette is normal. There is mild chronic interstitial disease. There are no areas of consolidation. There are no pleural effusions or pneumothoraces. There is a left chest tube and cardiac device. XR/XR chest 1V IMPRESSION: No acute disease. Electronically signed by: Sunitha Lozano MD 07/04/2024 02:25 PM EDT
--- NOTE | ~2024-07-04 | XR_ITS ---
EXAMINATION: XR BILATERAL HIPS WITH AP PELVIS CLINICAL INFORMATION: AP pelvis and AP of both femurs to include both hip replacements COMPARISON: AP pelvis and both hips performed same day TECHNIQUE: AP both hips to include complete arthroplasty including femoral components. Lateral views were not obtained. AP Pelvis also included FINDINGS: Right hip AP: Right hip arthroplasty including femoral components included in the [id number] of the exam. No abnormality detected. Left hip AP: Left total hip arthroplasty including femoral component intact. Pelvis: Contrast present within the bladder. Otherwise no change. XR/XR hip BI w PEL1V IMPRESSION: This study is read in conjunction with the earlier examination of the pelvis and both hips. Both femoral components included in the field of view with an AP projections. No abnormality detected.. Lateral views were not obtained. Electronically signed by: Aaron Garzon MD 07/04/2024 04:12 PM EDT
--- NOTE | ~2024-07-04 | XR_ITS ---
EXAMINATION: XR BILATERAL HIPS WITH AP PELVIS CLINICAL INFORMATION: Bilateral hip pain COMPARISON: X-ray of the pelvis and left hip April 2024 CT January 2024 TECHNIQUE: AP pelvis and AP and lateral views of the chest FINDINGS: Right hip: The right total hip arthroplasty with components in the usual and unchanged position. Exam is partially limited as the distal tip of the femoral component is outside the [id number] of the exam. No periprosthetic fracture or suspicious area of lucency. Surrounding bone and soft tissues are unremarkable. Left hip: Left hip arthroplasty noted with the comparison usual in unchanged position and no periprosthetic fracture or suspicious area of lucency. Proximal cerclage wire noted again and intact. The exam is partially limited as the distal femoral stem is outside the field of view exam. Pelvis: Partially limited as the proximal portion of the right iliac wing is outside the field of view of the exam. Otherwise the bone appears normal symphysis pubis normal. Sacroiliac joints not well demarcated consistent with a partial osseous bridging likely related to arthrosis.. This is noted on review of prior CT January 2024. Spondylosis of the partially visualized lumbosacral spine. XR/XR hips JAIME min 3V IMPRESSION: RIGHT HIP: Limited exam as the distal tip of the femoral component is outside the [id number] of the exam. No acute abnormality LEFT HIP: Left hip arthroplasty without change or complication by x-ray. Exam limited as the distal femoral stem is outside the field of view exam. PELVIS: Partial osseous bridging of the sacroiliac joints likely reflecting arthrosis. No change compared with recent CT Electronically signed by: Aaron Garzon MD 07/04/2024 02:27 PM EDT
--- NOTE | 2024-07-04 12:09 | ED_ITS ---
HPI - General Adult General Chief complaint: Weakness Stated complaint: UNABLE TO AMB,D/T CHR HIP PAIN PER EMS Time Seen by Provider: 07/04/24 11:22 Source: patient, EMS, RN notes reviewed and old records reviewed Mode of arrival: EMS History of Present Illness ED Provider: Madison Lorenzo PA-C HPI narrative: 69-year-old male with a past medical history of proximal AFib on Xarelto, depression, opiate dependence, HTN, presenting to ED via EMS from [facility] complaining of acute on chronic bilateral hip pain with inability to stand or ambulate secondary to pain. States his hips have been broken for years. Admits to recent fall secondary to legs giving out, denies head trauma or LOC. states was unable to get up today. Took Oxycodone this morning without relief. Also reports abdominal pain and states I do not want to live anymore . Denies suicidal plan Denies fever, chills, nausea/vomiting, diarrhea, dysuria/hematuria. Related Data Home Medications ?Medication ?Instructions ?Recorded ?Confirmed methadone 5 mg tablet 5 mg PO TID Pain (Scale Score 4-6) 10/21/22 01/16/24 oxycodone 10 mg tablet 1 tab PO BID PRN Pain 10/21/22 01/16/24 clonidine HCl 0.2 mg tablet 0.2 mg PO TID 04/12/23 01/16/24 hydroxyzine HCl 25 mg tablet 25 mg PO QID PRN anxiety/insomnia 12/12/23 01/16/24 Previous Rx's ?Medication ?Instructions ?Recorded acetaminophen 325 mg tablet 650 mg (2 x 325 mg) PO Q6H PRN 10/28/22 Headache/Pain Mild Scale (1-3) #0 tabs lisinopril 5 mg tablet 1 tab PO DAILY #30 tabs 10/28/22 nifedipine 90 mg tablet,extended 1 tab PO DAILY #30 tabs 10/28/22 release 24 hr trazodone 50 mg tablet 1 tab PO BEDTIME #30 tabs 10/28/22 duloxetine 20 mg capsule,delayed 20 mg PO BID #60 caps 12/24/22 release (Cymbalta) metoprolol tartrate 50 mg tablet 50 mg PO BID #60 tabs 04/14/23 rivaroxaban 20 mg tablet (Xarelto) 20 mg PO DAILY #30 tabs 04/14/23 sennosides 17.2 mg tablet (Senokot 17.2 mg PO BID PRN constipation 07/19/23 Extra Strength) #30 tabs vancomycin 125 mg capsule 250 mg (2 x 125 mg) PO Q6H #48 caps 01/19/24 clotrimazole 1 % topical ointment 1 appl topical BID #56.7 grams 03/24/24 Allergies Allergy/AdvReac Type Severity Reaction Status Date / Time ergotamine [ERGOTAMINE] AdvReac Severe NAUSEA Verified 07/04/24 11:49 Review of Systems 2 Review of Systems: Yes all other systems are reviewed and are negative Constitutional: Constitutional: Reports as per [facility] Past Medical History Attestation statement: The following information was validated with the patient. Source: old records reviewed Medical History Paroxysmal atrial fibrillation MDD (major depressive disorder), recurrent episode, moderate History of intravenous drug abuse Presence of combination internal cardiac defibrillator (ICD) and pacemaker Ventricular arrhythmia Opioid dependence Lumbar disc herniation Thoracic disc herniation Cervical disc herniation Opioid abuse Pacemaker HTN (hypertension) Surgical History History of spinal fusion History of hip replacement Family History Family History Mother HTN (hypertension) CHF (congestive heart failure) Social History Social History Household Members: Other Household Members Other:: lives with other roommates Housing: Other Housing Other:: rents an rm in house Do you presently have visiting nurse or other home services: No Unable to assess alcohol history related to: Unknown Alcohol intake: never Comment: 1:1 sitter Patient Tobacco Use Status: Never used Tobacco Smoked in Last 30 Days: No Second Hand Smoke Exposure: No Use of substances other than those prescribed or required for medical reasons: No Substance Use Type: Marijuana Advance Directives: No Advance Directives Information Provided: No service: No Current occupational status: retired and disabled Sexual orientation: Straight/Heterosexual Physical Exam ED Vital Signs: Vital Signs - 24 hr 07/04/24 11:47 07/04/24 13:38 09/02/24 16:08 Temperature 98.8 F 98.6 F Pulse Rate 74 72 72 Respiratory Rate 18 16 17 Blood Pressure 108/62 100/54 L Pulse Oximetry 90 L 91 L 95 Oxygen Delivery Method Room Air Room Air Room Air BMI result Body Mass Index 22.1 Const General: cooperative, healthy appearing and no acute distress Orientation/consciousness: patient oriented x3 Limitations: no limitations HENMT Head: Yes normal to inspection and Yes atraumatic Ears: hearing grossly normal bilaterally General nose exam: Normal external nose present Face and sinus: Yes normal facial exam Eyes General: appearance normal, both eyes and all related structures EOM: EOMs intact bilaterally Neck Neck: Yes normal visual inspection and Yes no meningeal signs Resp Effort & Inspection: normal respiratory effort and no respiratory distress Auscultation: clear to auscultation bilaterally Cardio Rate: regular rate Heart sounds: S1 normal heart sound present and S2 normal heart sound present GI Inspection: Yes normal to inspection Palpation (GI): Soft to palpation, Tenderness to palpation present (GI) (Diffusely) with no rebound tenderness, no guarding and not rigid Skin Rashes: no rashes Wounds: no wounds Neuro General: patient oriented x3, tone normal, moves all extremities and no meningeal signs Cranial nerves: Yes CN's II-XII intact bilaterally Extrem Other: Pelvis stable. Bilateral hip tenderness elicited. FROM intact with discomfort bilaterally. No deformity. No erythema/ecchymosis. Neurovascular intact distally bilaterally Course Course Course Narrative: -1325--hyperkalemic to 5.8 > will give lokelma and re-evaluate. EKG without QT prolongation. Magnesium WNL -UA negative. Tox screen positive for oxycodone and methadone > obtain repeat BMP to evaluate potassium XR chest 1V IMPRESSION: No acute disease. XR hips JAIME min 3V IMPRESSION: RIGHT HIP: Limited exam as the distal tip of the femoral component is outside the [id number] of the exam. No acute abnormality LEFT HIP: Left hip arthroplasty without change or complication by x-ray. Exam limited as the distal femoral stem is outside the field of view exam. PELVIS: Partial osseous bridging of the sacroiliac joints likely reflecting arthrosis. No change compared with recent CT 1622--XR hip BI w PEL1V IMPRESSION: This study is read in conjunction with the earlier examination of the pelvis and both hips. Both femoral components included in the field of view with an AP projections. No abnormality detected.. Lateral views were not obtained. -patient evaluated by CARE team and does not need inpatient level of care -1630-- ED care transferred to [facility] pending repeat BMP & PT/CM consult Medications Administered Discontinued Medications Generic Name Dose Route Start Last Admin Trade Name Glenna PRN Reason Stop Dose Admin Iohexol 100 ml 07/04/24 14:48 07/04/24 14:49 Iohexol 350 Mg/Ml 100 Ml Infus..Btl IV 07/04/24 14:49 85 ml ONCE ONE Administration Sodium Zirconium Cyclosilicate 5 gm 07/04/24 13:24 07/04/24 14:59 Sodium Zirconium Cyclosilicate 5 Gm Powd.Pack PO 07/04/24 13:25 5 gm ONCE ONE Administration Medical Decision Making Medical Decision Making [facility] Narrative: 69-year-old male with a past medical history of proximal AFib on Xarelto, depression, opiate dependence, HTN, presenting to ED via EMS from [facility] complaining of acute on chronic bilateral hip pain with inability to stand or ambulate secondary to pain. On exam satting 90-91% on RA, abdomen soft diffusely tender, no rebound or guarding, bilateral hip tenderness elicited without appreciable deformity or evidence of septic joint/arthritis. Neurovascular intact distally. Concern for acute on chronic hip pain vs arthritis/arthralgia vs possible fracture. No evidence of septic joint/arthritis. Rule out intra-abdominal pathology including appendicitis/diverticulitis. Plan: Labs, UA, CT AP, x-rays, pain control, re-evaluate Please refer to course for remaining clinical decision making, interpretation of labs/imaging results, and discussions with consultants and/or family members. Differential Diagnosis Differential Diagnoses: The differential diagnosis associated with the presentation includes As above Admission/Observation Consideration of admission/observation: Escalation of care including admission/observation considered Consult Healthcare Provider Management of the patient was discussed with: Behavioral Health Provider Lab Data [facility] Lab Attestation statement: I reviewed the patient's lab results. 07/04/24 12:24 07/04/24 12:24 Labs: Lab Results 07/04/24 07/04/24 Range/Units 12:24 12:29 WBC 11.7 H (4.8-10.8) X10*3/uL RBC 4.04 L (4.60-5.80) X10*6/uL Hgb 12.0 L (14.0-18.0) g/dl Hct 35.6 L (42.0-52.0) % MCV 88.1 (80.0-98.0) fL MCH 29.7 (27.0-33.0) pg MCHC 33.7 (31.0-36.0) g/dl RDW 13.1 (11.0-16.0) % Plt Count 184 (160-400) X10*3/uL MPV 10.7 (9.4-12.4) fL Immature Gran % (Auto) 0.5 H (0.0-0.4) % Neut % (Auto) 81.5 H (45-73) % Lymph % (Auto) 10.3 L (20-40) % [place] % (Auto) 7.0 (2-11) % Eos % (Auto) 0.5 (0-4) % Baso % (Auto) 0.2 (0-2) % Lymph # (Auto) 1.2 (1.2-4.9) X10*3/uL [place] # (Auto) 0.8 (0.1-1.2) X10*3/uL Eos # (Auto) 0.1 (0.0-0.4) X10*3/uL Baso # (Auto) 0.0 (0.0-0.2) X10*3/uL Abs Immat Gran (auto) 0.06 H (0.00-0.03) X10*3/uL Absolute Neuts (auto) 9.5 H (2.0-8.3) x10*3/uL Absolute Nucleated RBC 0.000 (0.0-0.012) X10*3/uL Nucleated RBC % (auto) 0.0 (0.0-0.2) /100WBC Sodium 134 L (135-145) mmol/L Potassium 5.8 H D (3.3-5.1) mmol/L Chloride 101 (96-108) mmol/L Carbon Dioxide 26 (22-29) mmol/L Anion Gap 13 (12-20) BUN 28 H (9-16) mg/dL Creatinine 0.91 (0.5-1.4) mg/dL Estim Creat Clear Calc 74.7 Estimated GFR > 60 Random Glucose 106 (60-115) mg/dL Calcium 9.6 (8.4-10.2) mg/dL Magnesium 2.2 (1.6-2.6) mg/dL Total Bilirubin 0.4 (0.0-1.0) mg/dL Direct Bilirubin 0.2 (0.0-0.5) mg/dL AST 31 (5-37) U/L ALT 24 (0-40) U/L Alkaline Phosphatase 70 (39-117) U/L Total Protein 7.7 (6.5-8.0) g/dL Albumin 3.9 (3.5-5.0) g/dL Lipase 16 (8-78) U/L Urine Color Yellow Urine Appearance Clear Urine pH 8.0 (5.0-9.0) Ur Specific Raymond 1.020 (1.005-1.025) Urine Protein Negative (Neg-Trace) mg/dL Urine Glucose (UA) Negative (Negative) mg/dL Urine Ketones Negative (Negative) mg/dL Urine Blood Negative (Negative) Urine Nitrite Negative (Negative) Ur Leukocyte Esterase Negative (Negative) Salicylates < 5.0 L (15-30) mg/dL Urine Opiates Screen Not Detected (Not Detect) Ur Buprenorphine Scrn Not Detected (Not Detect) ng/mL Ur Oxycodone Screen Positive H (Not Detect) ng/mL Urine Methadone Screen Positive H (Not Detect) ng/mL Urine Fentanyl Screen Not Detected (Not Detect) Acetaminophen < 3 (<30) mcg/mL Ur Barbiturates Screen Not Detected (Not Detect) Ur Phencyclidine Scrn Not Detected (Not Detect) Ur Amphetamines Screen Not Detected (Not Detect) U Benzodiazepines Scrn Not Detected (Not Detect) Urine Cocaine Screen Not Detected (Not Detect) U Marijuana (THC) Screen Not Detected (Not Detect) Ethyl Alcohol < 10 mg/dL Independent Interpretation I performed an independent interpretation of an: EKG (My interpretation EKG atrial paced with prolonged AV conduction rate of 70. Low voltage QRS. When compared to prior atrial pacemaker has replaced sinus rhythm. QTC 436. No STEMI.) and CT Scan Radiology Impression Discussion of test interpretation with radiology: I have reviewed the radiologist's reading. Independent Historian Clinical information obtained from an independent historian. History obtained from or confirmed by: EMS External Record Review External record reviewed: Inpatient record, Office record, Outpatient record, Prior outpatient labs, Prior outpatient radiology, Primary care record and Outside ED record Tests considered The following testing was considered but not selected: As above Prescription Management I considered prescription management with: Pain Medication Chronic Conditions Patient?s care impacted by: Hypertension and Other Social Determinants Patient?s care significantly limited by Social Determinants of Health including: Inadequate housing, Low income, Alcoholism and drug addiction in family and Problems related to primary support group Discharge Plan Discharge Clinical Impression: Chronic hip pain, Acute hyperkalemia Patient Disposition: Still a Patient Prescriptions: No Action methadone 5 mg tablet 5 mg PO TID oxycodone 10 mg tablet 1 tab PO BID PRN (Reason: Pain) acetaminophen 325 mg Tablet 650 mg PO Q6H PRN (Reason: Headache/Pain Mild Scale (1-3)) Qty: 0 0RF trazodone 50 mg tablet 1 tab PO BEDTIME Qty: 30 0RF nifedipine 90 mg tablet extended release 24hr 1 tab PO DAILY Qty: 30 0RF lisinopril 5 mg tablet 1 tab PO DAILY Qty: 30 0RF duloxetine [Cymbalta] 20 mg capsule,delayed release(DR/EC) 20 mg PO BID Qty: 60 0RF Senokot Extra Strength 17.2 mg tablet 17.2 mg PO BID PRN (Reason: constipation) Qty: 30 0RF vancomycin 125 mg Capsule 250 mg PO Q6H Qty: 48 0RF clonidine HCl 0.2 mg tablet 0.2 mg PO TID Xarelto 20 mg tablet 20 mg PO DAILY Qty: 30 0RF Rx Instructions: must administer with evening meal metoprolol tartrate 50 mg Tablet 50 mg PO BID Qty: 60 0RF Protocol: Hold for SBP/HR < HOLD for SBP < : 90 HOLD for HR < : 60 hydroxyzine HCl 25 mg tablet 25 mg PO QID PRN (Reason: anxiety/insomnia) clotrimazole 1 % ointment 1 appl topical BID Qty: 56.7 0RF Print Language: Fijian
[2024-07-04 12:31] LABS: MANUAL DIFF FLAG NO
[2024-07-04 12:35] LABS: Basophils Percent Auto 0.2 % (0-2); Eosinophils Absolute Auto 0.1 X10*3/uL (0.0-0.4); Eosinophils Percent Auto 0.5 % (0-4); Hematocrit 35.6 % (42.0-52.0); Imm Gran Abs Auto 0.06 X10*3/uL (0.00-0.03); Imm Gran Pct Auto 0.5 % (0.0-0.4); Lymphocytes Absolute Auto 1.2 X10*3/uL (1.2-4.9); Lymphocytes Percent Auto 10.3 % (20-40); Mean Corpuscular HGB Conc 33.7 g/dl (31.0-36.0); Mean Corpuscular Hemoglobin 29.7 pg (27.0-33.0); Mean Corpuscular Volume 88.1 fL (80.0-98.0); Mean Platelet Volume 10.7 fL (9.4-12.4); Monocytes Absolute Auto 0.8 X10*3/uL (0.1-1.2); Neutrophils Absolute Auto 9.5 x10*3/uL (2.0-8.3); Neutrophils Percent Auto 81.5 % (45-73); Platelet Count 184 X10*3/uL (160-400); Red Blood Count 4.04 X10*6/uL (4.60-5.80); Red Cell Distribution Width 13.1 % (11.0-16.0); White Blood Count 11.7 X10*3/uL (4.8-10.8)
[2024-07-04 12:36] LABS: Appearance Urine Clear; Color Urine Yellow; Glucose Urine UA Negative (Negative); Leukocyte Esterase Urine Negative (Negative); Nitrite Urine Negative (Negative); Urine Blood Negative (Negative); Urine Ketones Negative (Negative); Urine Protein Negative (Neg-Trace)
[2024-07-04 12:46] LABS: Amphetamine Screen Urine Not Detected (Not Detect); Barbiturates, Urine Not Detected (Not Detect); Benzodiazepines Screen Urine Not Detected (Not Detect); Buprenorphine Scr Not Detected (Not Detect); Cannabinoid Screen Urine Not Detected (Not Detect); Cocaine Screen Urine Not Detected (Not Detect); Fentanyl, urine Not Detected (Not Detect); Methadone Screen, Urine Positive (Not Detect); Opiate Screen Urine Not Detected (Not Detect); Oxycodone Screen Urine Positive (Not Detect); Phencyclidine Screen Urine Not Detected (Not Detect)
[2024-07-04 12:52] LABS: Acetaminophen LAB < 3 mcg/mL (<30); Alanine Aminotransferase 24 U/L (0-40); Albumin Level 3.9 g/dL (3.5-5.0); Alkaline Phosphatase 70 U/L (39-117); Anion Gap 13 (12-20); Aspartate Amino Transferase 31 U/L (5-37); Bilirubin Direct 0.2 mg/dL (0.0-0.5); Bilirubin Total 0.4 mg/dL (0.0-1.0); Blood Urea Nitrogen 28 mg/dL (9-16); Calcium 9.6 mg/dL (8.4-10.2); Carbon Dioxide 26 mmol/L (22-29); Chloride 101 mmol/L (96-108); Creatinine Clr Calc Pharmacy 74.7; Estimated Glomerular Filt Rate > 60; Ethanol < 10 mg/dL; Glucose Random 106 mg/dL (60-115); Lipase 16 U/L (8-78); Magnesium 2.2 mg/dL (1.6-2.6); Potassium 5.8 mmol/L (3.3-5.1); Salicylate < 5.0 mg/dL (15-30); Sodium 134 mmol/L (135-145); Total Protein 7.7 g/dL (6.5-8.0)
--- NOTE | 2024-07-04 13:00 | PC.NURSE ---
ARRIVES FROM [facility] AFTER INC FALLS THIS WK, INABILITY TO GET OOB THIS AM. HX CHRONIC HIP & BACK PAIN. DENIES RECENT HEAD STRIKES, WAS ABLE TO GET HIMSELF UP AFTER THESE FALLS. PT TOOK 10MG OXYCODONE THIS AM FOR PAIN, STATING NO RELIEF. HE ARRIVES IN SOILED CLOTHING. CLEANSED ON ARRIVAL. PT ENDORSES UPPER ABD ON PALP BY PROVIDER, DENIES N/V/D. VS WNL. PT DOES INTERMITTENTLY MAKE VAGUE SI STATEMENTS I'M SICK & TIRED OF BEING SICK & TIRED . HAS A DISTANT HX OF SELF HARM, DENIES ANY RECENT ATTEMPTS OR SPECIFIC PLANS TO END HIS LIFE. CARE TEAM CONSULT IN, PT PLACED ON 1:1 WITH KATLYN.
--- NOTE | 2024-07-04 13:24 | ECG_ITS ---
Test Reason : HYPERKALEMIA Blood Pressure : / mmHG Vent. Rate : 070 BPM Atrial Rate : 070 BPM P-R Int : 246 ms QRS Dur : 096 ms QT Int : 404 ms P-R-T Axes : 076 042 057 degrees QTc Int : 436 ms Atrial-paced rhythm with prolonged AV conduction Low voltage QRS Nonspecific T wave abnormality Septal infarct (cited on or before 27-APR-2024) Abnormal ECG When compared with ECG of 01-MAY-2024 10:08, Electronic atrial pacemaker has replaced Sinus rhythm Referred By: Madison Lorenzo Electronically Signed By:JANET MATUTE
--- NOTE | 2024-07-04 13:57 | PC.NURSE ---
EXPECTING FAX OF HOME MEDS FROM [facility] [phone]. EKG IN PROGRESS
[2024-07-04] MEDS: iohexoL 350 MG/ML 100 ML INFUS..BTL IV (14:49)
[2024-07-04] MEDS: Sodium Zirconium Cyclosilicate 5 GM POWD.PACK PO (14:59)
[2024-07-04 16:34] LABS: Anion Gap 15 (12-20); Blood Urea Nitrogen 26 mg/dL (9-16); Calcium 9.5 mg/dL (8.4-10.2); Carbon Dioxide 24 mmol/L (22-29); Chloride 101 mmol/L (96-108); Creatinine Clr Calc Pharmacy 78.2; Estimated Glomerular Filt Rate > 60; Glucose Random 119 mg/dL (60-115); Potassium 5.6 mmol/L (3.3-5.1); Sodium 134 mmol/L (135-145)
--- NOTE | 2024-07-04 19:08 | PC.NURSE ---
SITTER STATUS REMOVED GIVEN PT PSYCHIATRIC STATE IS NOT ACUTE, HE HAS BEEN EVALUATED TODAY BY CARE TEAM SEE NOTE. [facility] MED REC COMPLETED.
--- NOTE | 2024-07-04 19:15 | PHA.MEDREC ---
Pharmacy Consult ? Medication Reconciliation Pharmacy has completed the medication reconciliation, utilized list from pt's family.
[2024-07-04] MEDS: oxyCODONE HCl Immed Release 5 MG TABLET 10 MG PO (19:30)
[2024-07-04] MEDS: Metoprolol Tartrate 50 MG TABLET PO (21:17)
[2024-07-04] MEDS: traZODone HCL 50 MG TABLET PO (21:18)
[2024-07-04] MEDS: Sodium Zirconium Cyclosilicate 10 GM POWD.PACK PO (21:18)
[2024-07-04] MEDS: cloNIDine HCL 0.2 MG TABLET PO (21:18)
[2024-07-04] MEDS: DULoxetine HCl 30 MG CAPSULE.DR PO (21:18)
[2024-07-04] MEDS: methADONE HCl 5 MG TABLET 10 MG PO (23:16)
[2024-07-05 05:41] VITALS: BP 102/65; PULSE 69; RESP 18; TEMP 36.1; O2SAT 94
[2024-07-05] MEDS: Metoprolol Tartrate 50 MG TABLET PO ×2 (09:37→21:45)
[2024-07-05] MEDS: DULoxetine HCl 30 MG CAPSULE.DR PO ×2 (09:37→21:46)
[2024-07-05] MEDS: cloNIDine HCL 0.2 MG TABLET PO ×3 (09:38→21:45)
[2024-07-05] MEDS: lisinopriL 5 MG TABLET PO (09:38)
[2024-07-05] MEDS: NIFEdipine ER 90 MG TAB.ER.24 PO (09:38)
[2024-07-05] MEDS: oxyCODONE HCl Immed Release 5 MG TABLET 10 MG PO ×2 (09:52→21:45)
[2024-07-05 10:24] LABS: COVID-19 Test Negative (Negative); IDNOW Serial# 152EDE1D
[2024-07-05 10:24] LABS: Anion Gap 13 (12-20); Blood Urea Nitrogen 21 mg/dL (9-16); Calcium 9.4 mg/dL (8.4-10.2); Carbon Dioxide 25 mmol/L (22-29); Chloride 104 mmol/L (96-108); Creatinine Clr Calc Pharmacy 82.9; Estimated Glomerular Filt Rate > 60; Glucose Random 109 mg/dL (60-115); Potassium 4.7 mmol/L (3.3-5.1); Sodium 137 mmol/L (135-145)
[2024-07-05 12:32] VITALS: BP 105/65; PULSE 98; RESP 20; TEMP 36.7; O2SAT 96
--- NOTE | 2024-07-05 13:50 | MHC.CM.ED ---
Received case management consult overnight. Patient came to the ER due to difficulty ambulating. Patient was seen and cleared by the Care Team d/t SI. Physical therapy eval completed. Short term rehab is recommended. It is documented that patient continued with vague SI statements during the PT eval. Psych consult ordered by Sheri GILBERT d/t this. Will wait for psych consult to be completed before continuing with case management consult. Continue to monitor for d/c needs.
[2024-07-05] MEDS: methADONE HCl 5 MG TABLET 10 MG PO (13:57)
[2024-07-05] MEDS: Rivaroxaban 20 MG TABLET PO (17:50)
--- NOTE | 2024-07-05 19:06 | PC.NURSE ---
Patient denies si/hi. Ambualting up and down unit with wheeled walker stating he would like to home tomorrow.
--- NOTE | 2024-07-05 20:00 | PC.NURSE ---
Pt asking for pain meds, explained to pt, that it is not time. Informed pt, it would be 10pm. Pt upset and states, I can take care of myself, and I am getting the fuck out of here tomorrow
[2024-07-05 20:40] VITALS: BP 111/77; PULSE 74; RESP 16; TEMP 37.3; O2SAT 97
[2024-07-05] MEDS: traZODone HCL 50 MG TABLET PO (21:45)
--- NOTE | 2024-07-05 21:56 | PC.NURSE ---
into room to give PM medication, pt was resting quietly, with eyes closed. Pt immediatley asked for all of his pain medication and methadone, explained, he couldn't have it at the same time. pt states I know my body and I want all Pt agreed to wait for the methadone. Pt given PM medication, resp with ease, no s/s of acute distress
--- NOTE | 2024-07-05 23:12 | PC.NURSE ---
report given to Ny JUAREZ
[2024-07-06] MEDS: methADONE HCl 5 MG TABLET 10 MG PO ×2 (05:17→15:20)
[2024-07-06 05:24] VITALS: BP 107/69; PULSE 68; RESP 20; TEMP 36.9; O2SAT 95
[2024-07-06 08:01] VITALS: BP 101/65; PULSE 73; RESP 18; TEMP 37.1; O2SAT 97
[2024-07-06] MEDS: cloNIDine HCL 0.2 MG TABLET PO ×2 (08:56→15:20)
[2024-07-06] MEDS: DULoxetine HCl 30 MG CAPSULE.DR PO ×2 (08:56→20:49)
[2024-07-06] MEDS: NIFEdipine ER 90 MG TAB.ER.24 PO (08:56)
[2024-07-06] MEDS: lisinopriL 5 MG TABLET PO (08:56)
[2024-07-06] MEDS: Metoprolol Tartrate 50 MG TABLET PO (08:56)
[2024-07-06] MEDS: oxyCODONE HCl Immed Release 5 MG TABLET 10 MG PO ×2 (08:57→20:29)
--- NOTE | 2024-07-06 08:57 | PC.NURSE ---
Pt. medicated per DEC. Also given PRN Oxycodone 10mg as requested. Eating breakfast tray at this time. Pt. offers no concerns or complaints at this time. Plan of care ongoing.
--- NOTE | 2024-07-06 09:50 | PM.PSYCN ---
History of Present Illness Date of Service: 07/06/2024 Chief Complaint: UNABLE TO AMB,D/T CHR HIP PAIN PER EMS Reason for Consult: chronic SI Discussed with referring provider: Yes Sources of Information: patient interviewed, chart reviewed and crisis/core team assessment reviewed HPI Narrative: Mr. Hernandes is a 69 year-old who resides at [facility], came to [facility] after a fall. He reported passive SI. Pt is known to this sign writer letterer or painter and behavioral health here at [facility] with similar presentation. Pt seen in room. He presents as cooperative and calm. He reports he has chronic pain fairly manage with current medications. He reports he is lonely after he lost 2nd . He reports he would like to meet another woman but it has not been possible. He reports his quality of life is poor and he wouldn't want to prolonged his life but he also adamantly denies any plan or intent to hurt himself. Pt is known to this sign writer letterer or painter from previous assessment back in 2021 with same concerns. No hx of suicide attempts. No recent signs of aggression towards self or others. No hx of psychosis or delusions. Past Psychiatric History: IP: [facility] 03/23, 10/22 Judge: 05/21 [facility] 2021 OP: None he reports Trials: [facility] Medical Evaluation Reviewed: Yes [facility] Medical History (Updated 07/06/24 @ 10:32 by Ginger Hoffman NP) MDD (major depressive disorder), recurrent episode, moderate Paroxysmal atrial fibrillation History of intravenous drug abuse Presence of combination internal cardiac defibrillator (ICD) and pacemaker Ventricular arrhythmia Opioid dependence Lumbar disc herniation Thoracic disc herniation Cervical disc herniation Opioid abuse Pacemaker HTN (hypertension) Surgical History History of spinal fusion History of hip replacement Family History: Denies Social History: Born and raised in [place] Only child. poor social support common disability for more than 20 years, denies having children or any contact with collateral family. Loss of 2 wives. 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 Exercise used to be pt's outlet-with back, hip injuries he can no longer participate Hx of incarceration for drug related offenses x 2 States institutional structure helps him the most. Trauma History: Losses Diagnostics Vital Signs (24Hr): Vital Signs - 24 hr 07/05/24 12:32 07/05/24 20:40 07/06/24 05:24 Temperature 98.0 F 99.1 F 98.5 F Pulse Rate 98 74 68 Respiratory Rate 20 16 20 Blood Pressure 105/65 111/77 107/69 Pulse Oximetry 96 97 95 Oxygen Delivery Method Room Air Room Air Room Air 07/06/24 08:01 Temperature 98.7 F Pulse Rate 73 Respiratory Rate 18 Blood Pressure 101/65 Pulse Oximetry 97 Oxygen Delivery Method Room Air BMI result Body Mass Index 22.1 Labs 07/04/24 12:24 07/05/24 09:56 Labs: Laboratory Results - last 48 hr 07/04/24 07/04/24 07/04/24 12:24 12:29 16:15 WBC 11.7 H RBC 4.04 L Hgb 12.0 L Hct 35.6 L MCV 88.1 MCH 29.7 MCHC 33.7 RDW 13.1 Plt Count 184 MPV 10.7 Immature Gran % (Auto) 0.5 H Neut % (Auto) 81.5 H Lymph % (Auto) 10.3 L [place] % (Auto) 7.0 Eos % (Auto) 0.5 Baso % (Auto) 0.2 Lymph # (Auto) 1.2 [place] # (Auto) 0.8 Eos # (Auto) 0.1 Baso # (Auto) 0.0 Abs Immat Gran (auto) 0.06 H Absolute Neuts (auto) 9.5 H Absolute Nucleated RBC 0.000 Nucleated RBC % (auto) 0.0 Sodium 134 L 134 L Potassium 5.8 H D 5.6 H Chloride 101 101 Carbon Dioxide 26 24 Anion Gap 13 15 BUN 28 H 26 H Creatinine 0.91 0.87 Estim Creat Clear Calc 74.7 78.2 Estimated GFR > 60 > 60 Random Glucose 106 119 H Calcium 9.6 9.5 Magnesium 2.2 Total Bilirubin 0.4 Direct Bilirubin 0.2 AST 31 ALT 24 Alkaline Phosphatase 70 Total Protein 7.7 Albumin 3.9 Lipase 16 Urine Color Yellow Urine Appearance Clear Urine pH 8.0 Ur Specific [place] 1.020 Urine Protein Negative Urine Glucose (UA) Negative Urine Ketones Negative Urine Blood Negative Urine Nitrite Negative Ur Leukocyte Esterase Negative Salicylates < 5.0 L Urine Opiates Screen Not Detected Ur Buprenorphine Scrn Not Detected Ur Oxycodone Screen Positive H Urine Methadone Screen Positive H Urine Fentanyl Screen Not Detected Acetaminophen < 3 Ur Barbiturates Screen Not Detected Ur Phencyclidine Scrn Not Detected Ur Amphetamines Screen Not Detected U Benzodiazepines Scrn Not Detected Urine Cocaine Screen Not Detected U Marijuana (THC) Screen Not Detected Ethyl Alcohol < 10 COVID-19 (AMOR) COVID-19 Clin Com 07/05/24 07/05/24 09:50 09:56 WBC RBC Hgb Hct MCV MCH MCHC RDW Plt Count MPV Immature Gran % (Auto) Neut % (Auto) Lymph % (Auto) [place] % (Auto) Eos % (Auto) Baso % (Auto) Lymph # (Auto) [place] # (Auto) Eos # (Auto) Baso # (Auto) Abs Immat Gran (auto) Absolute Neuts (auto) Absolute Nucleated RBC Nucleated RBC % (auto) Sodium 137 Potassium 4.7 Chloride 104 Carbon Dioxide 25 Anion Gap 13 BUN 21 H Creatinine 0.82 Estim Creat Clear Calc 82.9 Estimated GFR > 60 Random Glucose 109 Calcium 9.4 Magnesium Total Bilirubin Direct Bilirubin AST ALT Alkaline Phosphatase Total Protein Albumin Lipase Urine Color Urine Appearance Urine pH Ur Specific [place] Urine Protein Urine Glucose (UA) Urine Ketones Urine Blood Urine Nitrite Ur Leukocyte Esterase Salicylates Urine Opiates Screen Ur Buprenorphine Scrn Ur Oxycodone Screen Urine Methadone Screen Urine Fentanyl Screen Acetaminophen Ur Barbiturates Screen Ur Phencyclidine Scrn Ur Amphetamines Screen U Benzodiazepines Scrn Urine Cocaine Screen U Marijuana (THC) Screen Ethyl Alcohol COVID-19 (AMOR) Negative COVID-19 Clin Com See Note Imaging Radiology Impressions: ITS Impressions Abdomen/Pelvis CT 07/04/24 12:08 IMPRESSION: Chronic appearing changes as described above. I do not appreciate any acute intra-abdominal process. Electronically signed by: Eleno Nagel MD 07/04/2024 04:04 PM EDT Hip X-Ray 07/04/24 13:15 IMPRESSION: RIGHT HIP: Limited exam as the distal tip of the femoral component is outside the [id number] of the exam. No acute abnormality LEFT HIP: Left hip arthroplasty without change or complication by x-ray. Exam limited as the distal femoral stem is outside the field of view exam. PELVIS: Partial osseous bridging of the sacroiliac joints likely reflecting arthrosis. No change compared with recent CT Electronically signed by: Aaron Garzon MD 07/04/2024 02:27 PM EDT RP Chest X-Ray 07/04/24 13:59 IMPRESSION: No acute disease. Electronically signed by: Sunitha Lozano MD 07/04/2024 02:25 PM EDT RP Hip/Pelvis X-Ray 07/04/24 15:04 IMPRESSION: This study is read in conjunction with the earlier examination of the pelvis and both hips. Both femoral components included in the field of view with an AP projections. No abnormality detected.. Lateral views were not obtained. Electronically signed by: Aaron Garzon MD 07/04/2024 04:12 PM EDT RP Mental Status Exam Mental Status Exam Narrative: Appearance: wearing hospital gown, in NAD Behavior: cooperative Speech: clear, normal rate/rhythm/volume, spontaneous TP: linear TC: no signs of psychosis, wanting to go back to previous TL Mood: okay Affect: brightens at times, smiles SI: chronic thoughts denies any plan or intent HI: none AV/VH: none Delusions: none Insight/judgment: poor x 2. Alert, oriented x 3. previous MOCA during last admission (2021). Medications Medications Current Medications Clonidine HCl (Clonidine Hcl 0.2 Mg Tablet) 0.2 mg PO TID [place]; Protocol Last Admin: 07/06/24 08:56 Dose: 0.2 mg Duloxetine HCl (Duloxetine Hcl 30 Mg Capsule.Dr) 30 mg PO BID [place] Last Admin: 07/06/24 08:56 Dose: 30 mg Hydroxyzine HCl (Hydroxyzine Hcl 25 Mg Tablet) 25 mg PO QID PRN PRN Reason: anxiety/insomnia Lisinopril (Lisinopril 5 Mg Tablet) 5 mg PO DAILY [place]; Protocol Last Admin: 07/06/24 08:56 Dose: 5 mg Methadone HCl (Methadone Hcl 5 Mg Tablet) 10 mg PO Q8H PRN PRN Reason: pain Last Admin: 07/06/24 05:17 Dose: 10 mg Metoprolol Tartrate (Metoprolol Tartrate 50 Mg Tablet) 50 mg PO BID [place]; Protocol Last Admin: 07/06/24 08:56 Dose: 50 mg Nifedipine (Nifedipine Er 90 Mg Tab.Er.24) 90 mg PO DAILY [place]; Protocol Last Admin: 07/06/24 08:56 Dose: 90 mg Oxycodone HCl (Oxycodone Hcl Immed Release 5 Mg Tablet) 10 mg PO BID PRN PRN Reason: Pain, Moderate(Pain Scale 4-6) Last Admin: 07/06/24 08:57 Dose: 10 mg Rivaroxaban (Rivaroxaban 20 Mg Tablet) 20 mg PO DAILY@1700 [facility] Last Admin: 07/05/24 17:50 Dose: 20 mg Trazodone HCl (Trazodone Hcl 50 Mg Tablet) 50 mg PO BEDTIME [facility] Last Admin: 07/05/24 21:45 Dose: 50 mg Allergies Allergies Allergy/AdvReac Type Severity Reaction Status Date / Time ergotamine [ERGOTAMINE] AdvReac Severe NAUSEA Verified 07/04/24 11:49 Assessment & Plan Assessment & Plan (1) MDD (major depressive disorder), recurrent episode, moderate: Status: Acute Code(s): F33.1 - Major depressive disorder, recurrent, moderate Plan Mr. Hernandes is a 69 year-old male with hx of MDD, resides at [facility], came to ED due to fall. He expressed passive SI. He has presented with chronic SI, but denies any plan or intent. No signs of aggression towards self or others. Recommend OP psychiatric tx for depression. No need for inpatient level of care. PLAN 1. Pt presents with chronic suicidality, more a reflection of how his quality of life has significantly deteriorated due to pain and lack of family support. No imminent safety concerns in terms of harm to self or other. No need for inpatient level of care Total time managing care of this patient today ____ minutes.
--- NOTE | 2024-07-06 10:47 | MHC.CM.ED ---
Addendum entered by Sandrine Riley 07/06/24 12:55: No bed offers within 25 miles. Referral broadcasted within 50 miles. Addendum entered by Sandrine Riley 07/06/24 12:18: Patient is on Methadone. Will be difficult to place due to this. Original Note: Patient remains in ER overflow. Patient cleared by psych. Physical therapy recommending STR. Per Isidoro at Assisted Living facility, patient will need to be able to transfer and ambulate independently and perform ADL's independently. Patient has [facility]. Referral broadcasted within 15 miles of patient's assisted living facility contracted with [facility]. Continue to monitor for d/c needs.
[2024-07-06 15:15] VITALS: BP 96/56; PULSE 71; RESP 18; O2SAT 96
--- NOTE | 2024-07-06 17:49 | PC.NURSE ---
Waiting on Xarelto per pharmacy at this time.
--- NOTE | 2024-07-06 18:06 | PC.NURSE ---
Pt. now stating that he plans on killing himself tonight. He plans on finding a way and states that I will stick something through my eye if I have to. Hardik Mares RN notified
--- NOTE | 2024-07-06 18:11 | PC.NURSE ---
VLADIMIR King notified that pt. would like to kill himself. Pet Christine, please have CareTeam see pt. STAT. CareTeam being notified now
--- NOTE | 2024-07-06 18:13 | PC.NURSE ---
field support technician Mayda sitting with pt. 1:1 at this time. Christine GILBERT ordering STAT CareTeam consult.
--- NOTE | 2024-07-06 18:27 | MHC.CM.ED ---
Addendum entered by Kell Alegria 07/06/24 22:53: Pt is cleared by the Care Team. Pt tells CM that he is not going to kill himself. CM told patient he should not say that in the hospital unless he is serious. Explained that then he must be evaluated. Addendum entered by Kell Alegria 07/06/24 19:28: CM received [place] from addiction medicine. States that if PCP orders the methadone, it should be in [facility]. Also states that methadone can be ordered like any other medication for the facility, as it is in pill form. Addendum entered by Kell Alegria 07/06/24 19:25: CM received call from over flow Suki JUAREZ. Pt is expressing suicidal thoughts and agitation. CARE team consult ordered. Pt will be moved to main ED with a sitter for safety. CM spoke with industrial waste treatment technician and provider regarding CM conversations with this patient and psych eval report. Original Note: CM met with Bill and discussed plan of care, including PT recommendation for STR. Spoke about patient needing to be able to ambulate, as he lives in assisted living. Pt is reluctantly agreeable. Expresses sadness at the state of his life. States he could cry. States he has no family and has already buried 2 wives. Pt does not express any suicidal thoughts, just being sad. Pt tells CM that his PCp, Dr. Travis Mcarthur prescribes all his medications, including his methadone. Pt states he takes methadone pills. He hasn't been to a methadone in many years. 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 CM explained that referrals have been placed and that CM would speak with him tomorrow regarding bed offers. Pt aware that it would be only for 1-2 weeks. CM sent tiger to Kaity at addiction med regarding methadone. Psych consult reviewed. No IPLOC. Has MDD and chronic suicidally. CM will follow for discharge planning.
--- NOTE | 2024-07-06 19:45 | PC.NURSE ---
Assumed care of pt.
[2024-07-06] MEDS: Rivaroxaban 20 MG TABLET PO (20:30)
[2024-07-06] MEDS: traZODone HCL 50 MG TABLET PO (20:49)
[2024-07-06 20:50] VITALS: BP 91/56; PULSE 69
--- NOTE | 2024-07-06 20:51 | PC.NURSE ---
clonidine and metoprolol held, BP 91/56, below protocol threshold.
[2024-07-06 22:00] VITALS: BP 101/58; PULSE 72; RESP 18; O2SAT 98
[2024-07-07] VITALS (8 sets, daily range): BP systolic 82–142; BP diastolic 60–87; PULSE 68–87; RESP 16–18; TEMP 36.5–36.8; O2SAT 93–95
[2024-07-07] MEDS: hydrOXYzine HCL 25 MG TABLET PO ×2 (04:23→20:37)
[2024-07-07] MEDS: DULoxetine HCl 30 MG CAPSULE.DR PO ×2 (08:11→20:37)
[2024-07-07] MEDS: cloNIDine HCL 0.2 MG TABLET PO ×3 (08:11→20:38)
[2024-07-07] MEDS: oxyCODONE HCl Immed Release 5 MG TABLET 10 MG PO (08:36)
--- NOTE | 2024-07-07 09:34 | PC.NURSE ---
pts initial BP soft this am 110/68 help metoprolol, nifedipine and lisinopril. Ewa GILBERT made aware.
[2024-07-07] MEDS: 0.9 % Sodium Chloride 1,000 ML 999 ML IV (09:53)
--- NOTE | 2024-07-07 11:29 | PC.NURSE ---
pt verbally aggressive toward this RN, stating perseveratively that he has no one and is all alone and that this RN thinks she is helping but is really only fucking up his life . pt reports all you do is ship me around and I have no one and I have nothing and you're screwing up what little support I do have . pt stated that if we attempt to ship him anywhere he will not cooperate or be pleasant attempted to explain to pt that he can go back to [facility] if he can ambulate independently and attend to his ADLs - pt required a lot of assistance getting out of bed adn ambulating holding onto both this Rn and his bed.
[2024-07-07] MEDS: methADONE HCl 10 MG TABLET PO ×2 (11:46→20:37)
--- NOTE | 2024-07-07 13:23 | MHC.EDTECH ---
pt attempted to ambulate. when pt got out of bed with zero assistance, pt then stood up with a very unsteady gait and was unable to take and steps to ambulate. pt was then 1 assisted back to bed. pt comfortable in bed, call delgado within reach. RN made aware
--- NOTE | 2024-07-07 13:23 | MHC.CM.ED ---
Addendum entered by Sandrine Riley 07/07/24 16:24: T/W spoke with ANN Chaudhry of [facility]. She will be on-site tomorrow 07/08 to meet with patient and evaluate if she feels he will be safe to return to their facility. [facility] is willing to offer a bed if guest dosing of methadone is arranged at [facility] in [place]. Will wait for Isidoro's assessment before completing this. Original Note: Received telephone call from patient. Patient stated he wanted to go home. T/W explained [facility] wound not allowed him back until he was able to transfer and ambulate independently. Patient attempted to ambulate independently and was not able to do so. Still trying to find STR placement. Will be difficult because patient is on Methadone. Continue to monitor for d/c needs.
--- NOTE | 2024-07-07 13:30 | PC.NURSE ---
pt using handheld phone and is calling the [facility] photocopying machine operator asking for help, when staff goes into pts room he states that he doesn't need any help from us
--- NOTE | 2024-07-07 17:38 | PC.NURSE ---
pt reported to this RN that he has a friend coming to pick him up when the big E is over.
--- NOTE | 2024-07-07 19:00 | PC.NURSE ---
report received from Renata Regan RN, assume care of pt at this time
--- NOTE | 2024-07-07 19:01 | PC.NURSE ---
report received from Renata Regan RN, assume care of pt at this time
[2024-07-07] MEDS: Rivaroxaban 20 MG TABLET PO (19:03)
--- NOTE | 2024-07-07 20:14 | PC.NURSE ---
pt is very upset about not being able to leave. Pt yelling, that we can't keep him. pt got up and walked around the bed, but he held onto the bed. Pt yelled out to the pt outside of his room, to eat shit and . CM in room to see pt
[2024-07-07] MEDS: Metoprolol Tartrate 50 MG TABLET PO (20:37)
[2024-07-07] MEDS: traZODone HCL 50 MG TABLET PO (20:38)
[2024-07-08] VITALS (7 sets, daily range): BP systolic 100–131; BP diastolic 63–82; PULSE 69–80; RESP 16–20; TEMP 36.4–37.2; O2SAT 96–99
--- NOTE | 2024-07-08 01:27 | PC.NURSE ---
resting quietly on stretcher, with eyes closed, resp with ease, no s/s of acute distress, cont plan of care
[2024-07-08] MEDS: oxyCODONE HCl Immed Release 5 MG TABLET 10 MG PO ×2 (06:48→14:44)
--- NOTE | 2024-07-08 07:02 | PC.NURSE ---
report given to Nidhi JUAREZ
[2024-07-08] MEDS: DULoxetine HCl 30 MG CAPSULE.DR PO ×2 (09:22→20:35)
[2024-07-08] MEDS: methADONE HCl 10 MG TABLET PO ×2 (09:22→17:22)
[2024-07-08] MEDS: NIFEdipine ER 90 MG TAB.ER.24 PO (09:23)
[2024-07-08] MEDS: Metoprolol Tartrate 50 MG TABLET PO ×2 (09:23→20:35)
[2024-07-08] MEDS: cloNIDine HCL 0.2 MG TABLET PO ×3 (09:23→20:36)
[2024-07-08] MEDS: lisinopriL 5 MG TABLET PO (09:23)
--- NOTE | 2024-07-08 11:23 | MHC.CM.PN ---
Addendum entered by Leia Tejada 07/08/24 12:25: CM SPOKE TO CESILIA AT [facility], WHO IS NOW BEDSIDE TO ASSESS PTS APPROPRIATENESS TO RETURN TO [facility] PT CONTINUES TO REPORT HE IS NOT GOING TO STR, PT STATES HIS DIFFICULTIES ARE RELATED TO PAIN AND PT WILL NOT FIX THEM CM WILL MEET WITH CESILIA ONCE SHE HAS MET WITH PT Original Note: PT FROM [facility] WHO IS UNABLE TO ACCEPT HIM BACK UNTIL HE CAN TRANSFER/AMBULATE INDEPENDENTLY PT CURRENTLY STATING HE DOES NOT WANT STR, HOWEVER AN TL RN IS SUPPOSED TO BE BEDSIDE TODAY TO ASSESS PT AND EXPLAIN THEIR POLICY IF HE CANNOT RETURN [facility] IS FOLLOWING, THEY ARE REQUESTING DOCUMENTATION REGARDING HIS CAPACITY, A NOTE STATING STR WITH RETURN TO THE [facility] IS THE PLAN AND THAT THE TL WILL ACCEPT HIM BACK THEY ARE ALSO REQUESTING METHADONE ARRANGEMENTS BE MADE AT [facility] OR A NOTE CLEARLY STATING THE METHADONE IS FOR PAIN AND A SCRIPT THAT ALSO SAYS THE SAME CM HAS REQUESTED THE PSYCH PROVIDER WHO ASSESSED HIM ADD AN ADDENDUM REGARDING CAPACITY A MESSAGE HAS ALSO BEEN LEFT WITH SNF TO CLARIFY IF THEY WANT METHADONE ARRANGEMENTS TO BE MADE WITH [facility], OR A LETTER STATING IT IS FOR PAIN, THEY HAVE ASKED FOR BOTH.
--- NOTE | 2024-07-08 14:27 | PC.NURSE ---
Pt trialed walking with walker for d/c back to [employer] employee at bedside. Pt walked well with walker, no issues.
[2024-07-08] MEDS: hydrOXYzine HCL 25 MG TABLET PO (14:44)
--- NOTE | 2024-07-08 14:45 | PC.NURSE ---
Orders to give oxy PRN early due to pts pain and agitation, approved by provider
[2024-07-08] MEDS: Rivaroxaban 20 MG TABLET PO (18:20)
[2024-07-08] MEDS: traZODone HCL 50 MG TABLET PO (20:35)
--- NOTE | 2024-07-08 22:13 | MHC.CM.ED ---
Isidoro from [facility] with speak with director regarding patient's return to [facility]. Will not return tonight. Pt continues to refuse STR. States he can walk with the walker. Per psych, pt has the capacity to make medical decisions. CM will need to reach out tomorrow with regards to patient returning to [facility] on 07/09. Pt is aware and agreeable to remaining in ED tonight.
[2024-07-09] VITALS (7 sets, daily range): BP systolic 102–135; BP diastolic 61–77; PULSE 73–86; RESP 17–18; TEMP 36.7–36.9; O2SAT 94–98
[2024-07-09] MEDS: methADONE HCl 10 MG TABLET PO (04:20)
[2024-07-09] MEDS: DULoxetine HCl 30 MG CAPSULE.DR PO (08:59)
[2024-07-09] MEDS: lisinopriL 5 MG TABLET PO (09:00)
[2024-07-09] MEDS: cloNIDine HCL 0.2 MG TABLET PO (09:00)
[2024-07-09] MEDS: Metoprolol Tartrate 50 MG TABLET PO (09:01)
[2024-07-09] MEDS: NIFEdipine ER 90 MG TAB.ER.24 PO (11:06)
--- NOTE | 2024-07-09 11:20 | PC.NURSE ---
Late Entry: care of pt at 0700. Pt resting in bed quietly, respirations even and unlabored, no increased wob/sob noted. Pt up in bed eating breakfast, 75% eaten. This RN asked if pt wanted to get washed up/shower today, pt agreeable and says he will wash up a little later. Pt updated on plan of care, call delgado within reach, all needs met at this time.
--- NOTE | 2024-07-09 11:33 | MHC.CM.ED ---
Addendum entered by Sandrine Riley 07/10/24 07:56: [facility] is only agency able to accept patient. Original Note: Patient remains in ER. Spoke with Isidoro RN at [facility]. Per Isidoro, patient can return requesting physical therapy and occupational therapy be arranged. Patient has [facility]. Referral broadcasted at this time to see which agengies have the availability to accept patent. Hattie DEAN booked for 1pm. Patient, Leatha MULLER and Gabriela GILBERT aware. Continue to monitor for d/c needs.
== END 2024-07-09 13:32 ==
PROVIDERS: Nurse Practitioner Family; Physician Assistant; Emergency Provider Emergency Medicine; PCP Internal Medicine
DX: E87.5 Hyperkalemia (principal); F33.1 Major depressive disorder, recurrent, moderate; R10.9 Unspecified abdominal pain; M25.552 Pain in left hip; M25.551 Pain in right hip; I10 Essential (primary) hypertension; R45.851 Suicidal ideations; I48.0 Paroxysmal atrial fibrillation; Z79.01 Long term (current) use of anticoagulants; Z79.899 Other long term (current) drug therapy; Z95.0 Presence of cardiac pacemaker
CPT/HCPCS: 36415; 71045; 73521; 73522; 74177; 80048; 80076; 80143; 80179; 80307; 81003; 83690; 83735; 85025; 87635; 93005; 96360; 96361; 97116; 97162; 99285; Q9967; S9485

== ENCOUNTER → 2024-07-04 12:01 | Outpatient (BNV) | payer MEDICARE, SELFPAY | PROVIDERS: Emergency Provider Emergency Medicine; Visit Provider Social Worker | DX: F33.1 Major depressive disorder, recurrent, moderate (principal) | CPT/HCPCS: 99285 ==

== ENCOUNTER 2025-03-23 07:11 | Emergency (ER) | payer MEDICARE, SELFPAY ==
[2025-03-23 07:16] VITALS: BP 142/76; PULSE 76; O2SAT 99
[2025-03-23 07:18] VITALS: BP 132/90; PULSE 76; RESP 16; TEMP 36.8; O2SAT 95; BMI 20.4
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
--- NOTE | 2025-03-23 07:41 | PC.NURSE ---
Pt moved from ED8 to 3. Pt a/ox3, calm/cooperative with staff, ambulating with steady gait to room. Respirations even and unlabored, no increased wob/sob noted, able to speak in full sentences, denies sob/cp at this time. Pt denies SI to this RN, denies AH/VH/HI. Very pleasant with conversation, able to express feelings with this RN. Pt up in bed eating breakfast, watching TV. Plan for labs/UA. Pt updated on plan of care, pending CARE team consult at this time.
--- NOTE | 2025-03-23 08:00 | PC.NURSE ---
Pt changed over by boarding house manager Bettie and Security. Belongings placed in Locker #3
[2025-03-23 08:19] LABS: MANUAL DIFF FLAG NO
[2025-03-23 08:20] LABS: Basophils Percent Auto 0.5 % (0-2); Eosinophils Absolute Auto 0.5 X10*3/uL (0.0-0.4); Eosinophils Percent Auto 7.9 % (0-4); Hematocrit 39.9 % (42.0-52.0); Hemoglobin 13.4 g/dl (14.0-18.0); Imm Gran Abs Auto 0.02 X10*3/uL (0.00-0.03); Imm Gran Pct Auto 0.3 % (0.0-0.4); Lymphocytes Absolute Auto 1.7 X10*3/uL (1.2-4.9); Lymphocytes Percent Auto 27.9 % (20-40); Mean Corpuscular HGB Conc 33.6 g/dl (31.0-36.0); Mean Corpuscular Volume 89.5 fL (80.0-98.0); Monocytes Absolute Auto 0.5 X10*3/uL (0.1-1.2); Monocytes Percent Auto 8.9 % (2-11); Neutrophils Absolute Auto 3.2 x10*3/uL (2.0-8.3); Neutrophils Percent Auto 54.5 % (45-73); Platelet Count 168 X10*3/uL (160-400); Red Blood Count 4.46 X10*6/uL (4.60-5.80); Red Cell Distribution Width 12.6 % (11.0-16.0); White Blood Count 5.9 X10*3/uL (4.8-10.8)
[2025-03-23 08:38] LABS: Anion Gap 10 (12-20); Blood Urea Nitrogen 11 mg/dL (9-16); Calcium 9.7 mg/dL (8.4-10.2); Carbon Dioxide 28 mmol/L (22-29); Chloride 107 mmol/L (96-108); Creatinine Clr Calc Pharmacy 83.8; Estimated Glomerular Filt Rate > 60; Glucose Random 83 mg/dL (60-115); Potassium 4.1 mmol/L (3.3-5.1); Sodium 141 mmol/L (135-145)
--- NOTE | 2025-03-23 08:50 | PC.NURSE ---
This RN verified medications with medication list from [facility]. Med rec done on pt. Pt reminded on urine sample. Pending CARE team at this time, needs met at this time.
[2025-03-23 09:09] VITALS: BP 106/77; PULSE 76; RESP 16; TEMP 36.9; O2SAT 97
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
--- NOTE | 2025-03-23 10:46 | PC.NURSE ---
Assisted Director at [facility]: Florence [phone]
--- NOTE | 2025-03-23 11:10 | PC.NURSE ---
Report received. Taken over care at this time.
[2025-03-23] MEDS: oxyCODONE HCl Immed Release 5 MG TABLET 10 MG PO (11:34)
[2025-03-23 14:00] VITALS: BP 110/75; PULSE 78; RESP 16; TEMP 36.9; O2SAT 96
--- NOTE | 2025-03-23 14:27 | PC.NURSE ---
Spoke to Florence from facility, informed her on pt. being dc and when he will be leaving hospital van at 1445.
[2025-03-23 14:44] VITALS: BP 110/75; PULSE 78; RESP 16; TEMP 36.9; O2SAT 96
== END 2025-03-23 14:45 | disposition home or self-care (01) ==
PROVIDERS: Emergency Provider Emergency Medicine
DX: F33.1 Major depressive disorder, recurrent, moderate (principal); R45.851 Suicidal ideations; F41.9 Anxiety disorder, unspecified; I10 Essential (primary) hypertension; I48.0 Paroxysmal atrial fibrillation; F11.20 Opioid dependence, uncomplicated; Z95.0 Presence of cardiac pacemaker; Z79.899 Other long term (current) drug therapy; Z79.01 Long term (current) use of anticoagulants
CPT/HCPCS: 36415; 80048; 85025; 99285; S9485

== ENCOUNTER 2025-04-16 11:22 | Emergency (ER) | payer OTHER, SELFPAY ==
[2025-04-16] VITALS (10 sets, daily range): BP systolic 92–117; BP diastolic 49–78; PULSE 69–99; RESP 12–18; TEMP 36.7–37.2; O2SAT 90–98; BMI 21.7
--- NOTE | ~2025-04-16 | CT_ITS ---
CLINICAL HISTORY: abd pain, vomiting, r o colitis CT abdomen and pelvis without contrast Comparison: None Findings: No consolidation at the lung bases. Cholelithiasis. No definitive gallbladder wall thickening or pericholecystic fluid. Underdistended bladder. No hydronephrosis. Right nephrolithiasis measures 5 mm. No left nephrolithiasis. Cysts in the lower pole of the left kidney. Subcentimeter hyperattenuating left renal lesion, indeterminate, however could be a hemorrhagic cyst. Pancreatic lipomatosis. Pancreatic parenchymal calcifications could be the sequela of chronic pancreatitis. The other solid organs are unremarkable. The small bowel is not dilated. The colon is dilated, measuring up to 6.6 cm in the distal transverse colon. There is no discrete transition point. Question mild wall thickening of the colon in the region of the splenic flexure /descending colon. The appendix is not visualized. No secondary signs of acute appendicitis. Moderately increased stool quantity. No aneurysm. Severe calcified atherosclerotic disease. No lymphadenopathy. No ascites. There is mild height loss of L1 with sclerosis. A fracture line is not definitively visualized. No retropulsion of fracture fragments or involvement of the posterior elements. Grade 1 anterolisthesis of L4 on L5 and L5 on S1, degenerative. Intact bilateral total hip arthroplasties. Impression: Dilation of the colon may indicate ileus. Moderately increased stool quantity could be due to constipation. Question mild wall thickening of the colon which may indicate colitis. Age indeterminate compression fracture of L1. This document has been electronically signed by: Suki Shah MD on 04/16/2025 16:37:58
--- NOTE | 2025-04-16 11:57 | ED_ITS ---
HPI - Nausea/Vomiting/Diarrhea General Chief complaint: Nausea/Vomiting/Diarrhea Stated complaint: DIARRHEA,LETHARGY,SOB FROM SNF PER EMS Time Seen by Provider: 04/16/25 11:42 Source: patient and EMS Mode of arrival: EMS Limitations: no limitations History of Present Illness ED Provider: DR. Whaley HPI Narrative: a 69-year-old male came in from independent living facility for evaluation of nausea, vomiting, nonbloody watery diarrhea x1 day, diffuse abdominal cramps with passing flatus. Patient feels generalized weakness, no CP, no abdominal pain. Related Data Home Medications ?Medication ?Instructions ?Recorded ?Confirmed methadone 5 mg tablet 10 mg PO Q8H PRN Pain (Scale Score 10/21/22 03/23/25 4-6) oxycodone 10 mg tablet 1 tab PO BID PRN Pain 10/21/22 03/23/25 clonidine HCl 0.2 mg tablet 0.2 mg PO TID 04/12/23 03/23/25 hydroxyzine HCl 25 mg tablet 25 mg PO QID anxiety/insomnia 12/12/23 03/23/25 acetaminophen 325 mg tablet 650 mg PO Q6H PRN Pain 07/04/24 03/23/25 clotrimazole 1 % topical cream 1 appl topical BID PRN corner of 07/04/24 03/23/25 mouth docusate sodium 100 mg capsule 100 mg PO BID PRN Constipation 07/04/24 03/23/25 (Colace) nifedipine 90 mg tablet,extended 60 mg PO DAILY 07/04/24 03/23/25 release 24 hr (Procardia XL) polyethylene glycol 3350 17 gram 17 g PO DAILY PRN Constipation 07/04/24 03/23/25 oral powder packet (Miralax) rivaroxaban 20 mg tablet (Xarelto) 20 mg PO DAILY@1700 07/04/24 03/23/25 sennosides 8.6 mg tablet (senna) 17.2 mg PO BID PRN Constipation 07/04/24 03/23/25 Vitamin D3 50 mcg PO DAILY 03/23/25 03/23/25 duloxetine 30 mg capsule,delayed 30 mg PO BID 03/23/25 03/23/25 release thiamine HCl (vitamin B1) 100 mg 100 mg PO DAILY 03/23/25 03/23/25 tablet Previous Rx's ?Medication ?Instructions ?Recorded lisinopril 5 mg tablet 1 tab PO DAILY #30 tabs 10/28/22 trazodone 50 mg tablet 1 tab PO BEDTIME #30 tabs 10/28/22 metoprolol tartrate 50 mg tablet 50 mg PO BID #60 tabs 04/14/23 Allergies Allergy/AdvReac Type Severity Reaction Status Date / Time ergotamine [ERGOTAMINE] AdvReac Severe NAUSEA Verified 04/16/25 11:48 Review of Systems 2 Review of Systems: All other systems are reviewed and are negative Constitutional: Reports as per HPI and Reports no additional constitutional complaints Eyes: Reports as per HPI and Reports no additional eye complaints Reports system reviewed and no additional complaints, except as documented Cardiovascular: Reports as per HPI and Reports no additional cardiovascular complaints Respiratory: Reports as per HPI and Reports no additional respiratory complaints Gastrointestinal: Reports as per HPI and Reports no additional gastrointestinal complaints Genitourinary: Reports no additional female genitourinary complaints Musculoskeletal: Reports no additional musculoskeletal complaints Skin/Breast: Reports system reviewed and no additional complaints, except as docu Psychiatric: Reports no additional psychiatric complaints Endocrine: Reports no additional endocrine complaints Hematologic/Lymphatic: Reports no additional hematologic/lymphatic complaints Allergic/Immunologic: Reports no additional allergic/immunologic complaints Reports system reviewed and no additional complaints, except as documented and Reports Abnormal speech present [facility] Past Medical History Medical History MDD (major depressive disorder), recurrent episode, moderate Paroxysmal atrial fibrillation History of intravenous drug abuse Presence of combination internal cardiac defibrillator (ICD) and pacemaker Ventricular arrhythmia Opioid dependence Lumbar disc herniation Thoracic disc herniation Cervical disc herniation Opioid abuse Pacemaker HTN (hypertension) Surgical History History of spinal fusion History of hip replacement Family History Family History Mother HTN (hypertension) CHF (congestive heart failure) Social History Social History Household Members: Other Household Members Other:: lives with other roommates Housing: Other Housing Other:: rents an rm in house Do you presently have visiting nurse or other home services: No Unable to assess alcohol history related to: Unknown Alcohol intake: never Comment: 1:1 sitter Patient Tobacco Use Status: Never used Tobacco Smoked in Last 30 Days: No Second Hand Smoke Exposure: No Use of substances other than those prescribed or required for medical reasons: No Substance Use Type: Marijuana Advance Directives: Yes Advance Directives on File: Yes Advance Directives Date on File: 04/29/24 Do you have a plan to hurt others: No Plan service: No Current occupational status: retired and disabled Sexual orientation: Straight/Heterosexual Physical Exam 2 Vital Signs: Vital Signs: Last Vital Signs Temp 98.9 F 04/16/25 11:50 Pulse 71 04/16/25 16:46 Resp 12 04/16/25 16:46 BP 101/59 L 04/16/25 16:46 Pulse Ox 97 04/16/25 16:46 O2 Del Method Room Air 04/16/25 16:46 BMI result Body Mass Index 21.7 Vital signs have been reviewed and appear to be correct. Blood pressure elevated. Heart rate normal. Respiratory rate normal. Temperature normal. Oxygen saturation normal. Appearance: Alert. Oriented X3. No acute distress. Head: Normal external exam. Normocephalic. Atraumatic. No Hawkins signs noted. No raccoon eyes noted Eyes: PERRLA. EOMI. Conjunctiva and sclera normal. Eyelids normal. ENT: TM's Normal. Pharynx normal. Uvula midline. Moist mucous membranes. No trismus noted. No drooling noted. No muffled voice noted. Neck: Normal inspection. Neck supple. FROM. No adenopathy. Thyroid Normal. No meningeal signs. No neck mass noted. CVS: Normal heart rate and rhythm. Heart sound normal. No murmurs noted. Pulses normal throughout. Respiratory: No respiratory distress. Painless inspiration. Breath sounds normal. No wheezes/rales/rhonchi noted. Chest nontender. No accessory muscle usage noted or decreased air movement noted. Abdomen: Soft and nontender. Bowel sounds normal in all 4 quadrants. No distention noted. No organomegaly noted. No visible injury noted. Back: No CVA tenderness. Full range of motion noted. Skin: Skin warm and dry. Normal skin color. Normal skin turgor. No rashes/lesions/lacerations noted. Extremities: No lower extremity edema. Extremities exhibit normal range of motion. Extremities nontender. Neuro: Oriented X 3. Cranial nerve exam: II-XII are grossly intact No motor deficit. No sensory deficit. Reflexes normal. Course Reevaluation(s) Reevaluation #1: Feels better, still complaining of nausea but no vomiting, no diarrhea while he was in the ED.Static vital signs, labs are unremarkable, CT abdomen pelvis still pending signed out to Dr. Wagner. Patient expressed suicidal ideation with no specific plan will obtain care team after medical clearance. Will start the patient on physician observation. Time: 16:21 Medications Administered Discontinued Medications Generic Name Dose Route Start Last Admin Trade Name Freq PRN Reason Stop Dose Admin Sodium Chloride 1,000 mls @ 999 mls/hr 04/16/25 11:51 04/16/25 13:15 Ns IV 04/16/25 12:51 Infused .Q1H1M ONE Infusion Loperamide HCl 2 mg 04/16/25 11:53 04/16/25 12:11 Loperamide Hcl 2 Mg Capsule PO 04/16/25 11:54 2 mg ONCE ONE Administration Ondansetron HCl 4 mg 04/16/25 11:51 04/16/25 12:12 Ondansetron Hcl 4 Mg/2 Ml Vial IVPUSH 04/16/25 11:52 4 mg ONCE ONE Administration Ondansetron HCl 4 mg 04/16/25 11:53 04/16/25 12:12 Ondansetron Hcl 4 Mg/2 Ml Vial IVPUSH 04/16/25 11:54 Not Given ONCE ONE Oxycodone HCl 5 mg 04/16/25 15:23 04/16/25 16:02 Oxycodone Hcl Immed Release 5 Mg Tablet PO 04/16/25 15:24 5 mg ONCE ONE Administration Medical Decision Making Medical Decision Making [facility] Narrative: Patient's CT scan showed slight ileus with constipation patient is feeling much better this time taking p.o. fluids discharge patient home patient denied any suicidal ideation at this time feels safe to go back Differential Diagnosis Differential Diagnoses: The differential diagnosis associated with the presentation includes ( Colitis, diverticulitis, acute appendicitis, dehydration, electrolyte derangement, severe anemia, SI.) Admission/Observation Consideration of admission/observation: Escalation of care including admission/observation considered Lab Data [facility] Lab Attestation statement: I reviewed the patient's lab results. 04/16/25 12:06 04/16/25 12:06 Labs: Lab Results 04/16/25 Range/Units 12:06 WBC 10.2 (4.8-10.8) X10*3/uL RBC 4.75 (4.60-5.80) X10*6/uL Hgb 14.3 (14.0-18.0) g/dl Hct 41.7 L (42.0-52.0) % MCV 87.8 (80.0-98.0) fL MCH 30.1 (27.0-33.0) pg MCHC 34.3 (31.0-36.0) g/dl RDW 12.7 (11.0-16.0) % Plt Count 215 D (160-400) X10*3/uL MPV 9.8 (9.4-12.4) fL Immature Gran % (Auto) 0.8 H (0.0-0.4) % Neut % (Auto) 75.7 H (45-73) % Lymph % (Auto) 14.8 L (20-40) % [place] % (Auto) 6.3 (2-11) % Eos % (Auto) 2.0 (0-4) % Baso % (Auto) 0.4 (0-2) % Lymph # (Auto) 1.5 (1.2-4.9) X10*3/uL [place] # (Auto) 0.6 (0.1-1.2) X10*3/uL Eos # (Auto) 0.2 (0.0-0.4) X10*3/uL Baso # (Auto) 0.0 (0.0-0.2) X10*3/uL Abs Immat Gran (auto) 0.08 H (0.00-0.03) X10*3/uL Absolute Neuts (auto) 7.7 (2.0-8.3) x10*3/uL Absolute Nucleated RBC 0.000 (0.0-0.012) X10*3/uL Nucleated RBC % (auto) 0.0 (0.0-0.2) /100WBC Sodium 148 H (135-145) mmol/L Potassium 4.0 (3.3-5.1) mmol/L Chloride 111 H (96-108) mmol/L Carbon Dioxide 26 (22-29) mmol/L Anion Gap 15 (12-20) BUN 18 H (9-16) mg/dL Creatinine 1.07 (0.5-1.4) mg/dL Estim Creat Clear Calc 65.9 Estimated GFR > 60 Random Glucose 76 (60-115) mg/dL Calcium 10.6 H D (8.4-10.2) mg/dL Total Bilirubin 0.4 (0.0-1.0) mg/dL Direct Bilirubin 0.2 (0.0-0.5) mg/dL AST 32 (5-37) U/L ALT 18 (0-40) U/L Alkaline Phosphatase 92 (39-117) U/L Troponin I High Sens 4.2 (<3.5-35.0) ng/L Total Protein 8.5 H (6.5-8.0) g/dL Albumin 4.6 (3.5-5.0) g/dL Lipase 19 (8-78) U/L Independent Interpretation I performed an independent interpretation of an: CT Scan Radiology Impression Discussion of test interpretation with radiology: I have reviewed the radiologist's reading. Radiologist Impression: Impression: Dilation of the colon may indicate ileus. Moderately increased stool quantity could be due to constipation. Question mild wall thickening of the colon which may indicate colitis. Age indeterminate compression fracture of L1. This document has been electronically signed by: Suki Shah MD on 04/16/2025 16:37:58 Discharge Plan Discharge Clinical Impression: Chronic pain, Gastroenteritis Patient Disposition: Home, Self-Care Prescriptions: No Action methadone 5 mg tablet 10 mg PO Q8H PRN (Reason: Pain (Scale Score 4-6)) oxycodone 10 mg tablet 1 tab PO BID PRN (Reason: Pain) trazodone 50 mg tablet 1 tab PO BEDTIME Qty: 30 0RF lisinopril 5 mg tablet 1 tab PO DAILY Qty: 30 0RF clonidine HCl 0.2 mg tablet 0.2 mg PO TID metoprolol tartrate 50 mg Tablet 50 mg PO BID Qty: 60 0RF Protocol: Hold for SBP/HR < HOLD for SBP < : 90 HOLD for HR < : 60 hydroxyzine HCl 25 mg tablet 25 mg PO QID nifedipine [Procardia XL] 90 mg Tablet Extended Release 24hr 60 mg PO DAILY Xarelto 20 mg tablet 20 mg PO DAILY@1700 sennosides [senna] 8.6 mg Tablet 17.2 mg PO BID PRN (Reason: Constipation) acetaminophen 325 mg Tablet 650 mg PO Q6H PRN (Reason: Pain) polyethylene glycol 3350 [Miralax] 17 gram Powder In Packet 17 g PO DAILY PRN (Reason: Constipation) docusate sodium [Colace] 100 mg Capsule 100 mg PO BID PRN (Reason: Constipation) clotrimazole 1 % Cream 1 appl TOPICAL BID PRN (Reason: corner of mouth) thiamine HCl (vitamin B1) 100 mg Tablet 100 mg PO DAILY duloxetine 30 mg Capsule,Delayed Release(Dr/Ec) 30 mg PO BID Vitamin D3 50 mcg tablet 50 mcg PO DAILY Print Language: Tanzanian
[2025-04-16] MEDS: 0.9 % Sodium Chloride 1,000 ML 999 ML IV (12:09)
[2025-04-16] MEDS: Loperamide HCl 2 MG CAPSULE PO (12:11)
[2025-04-16 12:12] LABS: MANUAL DIFF FLAG NO
[2025-04-16] MEDS: ondansetron HCL 4 MG/2 ML VIAL IVPUSH (12:12)
[2025-04-16 12:13] LABS: Basophils Percent Auto 0.4 % (0-2); Eosinophils Absolute Auto 0.2 X10*3/uL (0.0-0.4); Hematocrit 41.7 % (42.0-52.0); Hemoglobin 14.3 g/dl (14.0-18.0); Imm Gran Abs Auto 0.08 X10*3/uL (0.00-0.03); Imm Gran Pct Auto 0.8 % (0.0-0.4); Lymphocytes Absolute Auto 1.5 X10*3/uL (1.2-4.9); Lymphocytes Percent Auto 14.8 % (20-40); Mean Corpuscular HGB Conc 34.3 g/dl (31.0-36.0); Mean Corpuscular Hemoglobin 30.1 pg (27.0-33.0); Mean Corpuscular Volume 87.8 fL (80.0-98.0); Mean Platelet Volume 9.8 fL (9.4-12.4); Monocytes Absolute Auto 0.6 X10*3/uL (0.1-1.2); Monocytes Percent Auto 6.3 % (2-11); Neutrophils Absolute Auto 7.7 x10*3/uL (2.0-8.3); Neutrophils Percent Auto 75.7 % (45-73); Platelet Count 215 X10*3/uL (160-400); Red Blood Count 4.75 X10*6/uL (4.60-5.80); Red Cell Distribution Width 12.7 % (11.0-16.0); White Blood Count 10.2 X10*3/uL (4.8-10.8)
[2025-04-16 12:30] LABS: Alanine Aminotransferase 18 U/L (0-40); Albumin Level 4.6 g/dL (3.5-5.0); Alkaline Phosphatase 92 U/L (39-117); Anion Gap 15 (12-20); Aspartate Amino Transferase 32 U/L (5-37); Bilirubin Direct 0.2 mg/dL (0.0-0.5); Bilirubin Total 0.4 mg/dL (0.0-1.0); Blood Urea Nitrogen 18 mg/dL (9-16); Calcium 10.6 mg/dL (8.4-10.2); Carbon Dioxide 26 mmol/L (22-29); Chloride 111 mmol/L (96-108); Creatinine Clr Calc Pharmacy 65.9; Estimated Glomerular Filt Rate > 60; Glucose Random 76 mg/dL (60-115); Lipase 19 U/L (8-78); Sodium 148 mmol/L (135-145); Total Protein 8.5 g/dL (6.5-8.0)
[2025-04-16 12:37] LABS: Troponin-I High Sensitivity 4.2 ng/L (<3.5-35.0)
[2025-04-16] MEDS: oxyCODONE HCl Immed Release 5 MG TABLET PO (16:02)
== END 2025-04-16 21:53 | disposition home or self-care (01) ==
PROVIDERS: Emergency Provider Emergency Medicine; PCP Internal Medicine
DX: K52.9 Noninfective gastroenteritis and colitis, unspecified (principal); G89.4 Chronic pain syndrome; R45.851 Suicidal ideations; I10 Essential (primary) hypertension; I48.0 Paroxysmal atrial fibrillation; F11.20 Opioid dependence, uncomplicated; Z79.899 Other long term (current) drug therapy; Z79.01 Long term (current) use of anticoagulants
CPT/HCPCS: 36415; 74176; 80048; 80076; 83690; 84484; 85025; 96361; 96374; 99284; 99285; J2405

== ENCOUNTER → 2025-04-16 15:27 | Outpatient (BNV) | payer MEDICARE, SELFPAY | PROVIDERS: Emergency Provider Emergency Medicine; PCP Internal Medicine; Visit Provider Radiology Diagnostic Radiology | DX: K56.41 Fecal impaction (principal) | CPT/HCPCS: 74176 ==

== ENCOUNTER 2025-06-14 16:45 | Inpatient (IN) | payer OTHER, SELFPAY ==
[2025-06-14 17:14] VITALS: BP 132/84; BP 146/92; PULSE 79; PULSE 82; RESP 18; TEMP 37.1; O2SAT 90; O2SAT 98; BMI 23.1
[2025-06-14 17:43] LABS: MANUAL DIFF FLAG NO
[2025-06-14 17:44] VITALS: RESP 18
[2025-06-14 17:46] LABS: Appearance Urine Clear; Glucose Urine UA Negative (Negative); PH 6.0 (5.0-9.0); Specific Gravity - Urine 1.025 (1.005-1.025)
[2025-06-14 17:47] LABS: Hematocrit 40.1 % (42.0-52.0); Hemoglobin 13.5 g/dl (14.0-18.0); Imm Gran Abs Auto 0.02 X10*3/uL (0.00-0.03); Imm Gran Pct Auto 0.3 % (0.0-0.4); Lymphocytes Absolute Auto 1.9 X10*3/uL (1.2-4.9); Mean Corpuscular HGB Conc 33.7 g/dl (31.0-36.0); Mean Corpuscular Hemoglobin 29.4 pg (27.0-33.0); Mean Corpuscular Volume 87.4 fL (80.0-98.0); NRBC Abs Auto 0.000 X10*3/uL (0.0-0.012); NRBC Pct Auto 0.0 /100WBC (0.0-0.2); Platelet Count 193 X10*3/uL (160-400); Red Blood Count 4.59 X10*6/uL (4.60-5.80); White Blood Count 6.8 X10*3/uL (4.8-10.8)
[2025-06-14 17:55] LABS: Cannabinoid Screen Urine POSITIVE (Not Detect)
[2025-06-14 17:59] LABS: Acetaminophen LAB < 3 mcg/mL (<30); Alanine Aminotransferase 13 U/L (0-40); Albumin Level 4.3 g/dL (3.5-5.0); Alkaline Phosphatase 83 U/L (39-117); Anion Gap 14 (12-20); Aspartate Amino Transferase 29 U/L (5-37); Blood Urea Nitrogen 16 mg/dL (9-16); Calcium 9.4 mg/dL (8.4-10.2); Carbon Dioxide 26 mmol/L (22-29); Chloride 102 mmol/L (96-108); Creatinine Clr Calc Pharmacy 85.1; Estimated Glomerular Filt Rate > 60; Potassium 4.1 mmol/L (3.3-5.1); Salicylate < 5.0 mg/dL (15-30); Sodium 138 mmol/L (135-145); Total Protein 8.1 g/dL (6.5-8.0)
--- NOTE | 2025-06-14 18:38 | ED.PSYCH ---
HPI - Psych General Chief Complaint: Psychiatric Symptoms Stated Complaint: SI/SH section 12 Time Seen by Provider: 06/14/25 18:14 Source: patient, EMS and RN notes reviewed Mode of arrival: EMS Limitations: no limitations History of Present Illness ED Provider: Bharath GILBERT HPI Narrative: The patient is a 69-year-old male with history of depression, personality disorder, and previous passive suicidal ideations presenting to the ED for evaluation of suicidal statements made at his assisted living facility when which patient reportedly made statements of suicide ideation with plan to cut his throat. In the ED the patient's common cooperative, patient denies any suicidal ideation and denies ever making those statements. The patient in the ED denies any homicidal ideation or auditory or visual hallucination. The patient reports he has felt 2-3 days of blocked ears, denies other acute somatic complaint. Related Data Home Medications ?Medication ?Instructions ?Recorded ?Confirmed methadone 5 mg tablet 10 mg PO Q8H PRN Pain (Scale Score 10/21/22 06/14/25 4-6) hydroxyzine HCl 25 mg tablet 25 mg PO QID anxiety/insomnia 12/12/23 06/14/25 nifedipine 90 mg tablet,extended 60 mg PO DAILY 07/04/24 06/14/25 release 24 hr (Procardia XL) rivaroxaban 20 mg tablet (Xarelto) 20 mg PO DAILY@1700 07/04/24 06/14/25 duloxetine 30 mg capsule,delayed 30 mg PO BID 03/23/25 06/14/25 release clonidine HCl 0.1 mg tablet 0.1 mg PO TID 06/14/25 06/14/25 oxycodone 15 mg tablet 15 mg PO QID PRN Pain 06/14/25 06/14/25 Previous Rx's ?Medication ?Instructions ?Recorded lisinopril 5 mg tablet 1 tab PO DAILY #30 tabs 10/28/22 trazodone 50 mg tablet 1 tab PO BEDTIME #30 tabs 10/28/22 metoprolol tartrate 50 mg tablet 50 mg PO BID #60 tabs 04/14/23 Allergies Allergy/AdvReac Type Severity Reaction Status Date / Time ergotamine (ERGOTAMINE) AdvReac Severe NAUSEA Verified 06/14/25 17:17 Review of Systems Review of Systems: Yes all other systems are reviewed and are negative PMFSH Past Medical History Medical History MDD (major depressive disorder), recurrent episode, moderate Paroxysmal atrial fibrillation History of intravenous drug abuse Presence of combination internal cardiac defibrillator (ICD) and pacemaker Ventricular arrhythmia Opioid dependence Lumbar disc herniation Thoracic disc herniation Cervical disc herniation Opioid abuse Pacemaker HTN (hypertension) Surgical History History of spinal fusion History of hip replacement Family History Family History Mother HTN (hypertension) CHF (congestive heart failure) Social History Social History Household Members: Other Household Members Other:: lives with other roommates Housing: Other Housing Other:: rents an rm in house Do you presently have visiting nurse or other home services: No Unable to assess alcohol history related to: Unknown Alcohol intake: former Comment: 1:1 sitter Patient Tobacco Use Status: Never used Tobacco Smoked in Last 30 Days: No Second Hand Smoke Exposure: No Use of substances other than those prescribed or required for medical reasons: No Substance Use Type: Marijuana Advance Directives: Yes Advance Directives on File: Yes Advance Directives Date on File: 04/29/24 service: No Current occupational status: retired and disabled Sexual orientation: Straight/Heterosexual Physical Exam Vital Signs: Vital Signs: Last Vital Signs Temp 98.4 F 06/15/25 07:46 Pulse 83 06/15/25 08:04 Resp 16 06/15/25 07:46 BP 141/89 H 06/15/25 08:04 Pulse Ox 98 06/15/25 07:46 O2 Del Method Room Air 06/15/25 07:46 BMI result Body Mass Index 23.1 CONSTITUTIONAL: The patient appears non-toxic, well nourished and in no acute distress. Vital signs as documented. HEAD: Atraumatic, normocephalic. EYES: EOMs grossly intact, pupils equal, conjunctiva clear, no exudate. ENT: Nares patent, no discharge. Airway patent, no audible stridor, visible mucosa is pink and moist without noted lesions. Bilateral ear canals are clear without cerumen impaction, bilateral TMs are intact and nonerythematous, no fluid levels or bulging. NECK: Trachea is midline, no obvious masses or gross abnormalities. CHEST: Symmetric movement, normal appearance. LUNGS: LS present and CTAB, no w/r/r. Non-labored work of breathing. CARDIAC: Regular Rhythm, S1/S2 appreciated, no murmurs, rubs or gallops. ABDOMEN: Abdomen soft and non-tender x4 quadrants, no palpable masses or organomegaly. : Deferred. EXTREMITIES: Normal tone, moves all extremities spontaneously without reported pain. No obvious acute injury or deformity noted. NEURO: Alert, CN II-XII appear grossly intact. Cerebellar Functioning grossly intact. No obvious sensory or motor deficits. Speech clear and appropriate. PSYCH: Slightly pressured but otherwise cooperative affect, appropriate eye contact, fluid speech, with appropriate response to questioning. Denies suicidality or homicidality. Patient does not appear to be responding to internal stimuli. SKIN: Warm, dry, color appropriate, normal turgor. No rashes noted. Course Course Course Narrative: Time: 06:59 Date: 06/15/25 Provider: Brandy Willett DO Patient in physician observation for psychiatric evaluation.? No acute events reported overnight. No current complaints. VS stable.? Pending CARE team evaluation. Will continue to monitor. Reevaluation(s) Reevaluation #1: Time: 14:07 Date: 06/15/25 Provider: Brandy Willett DO Physician observation ended at 207pm. Patient to be admitted as inpatient to psychiatry. Medications Administered Generic Name Dose Route Start Last Admin Trade Name Kadenq PRN Reason Stop Dose Admin Clonidine HCl 0.1 mg 06/14/25 21:00 06/15/25 08:04 Clonidine Hcl 0.1 Mg Tablet PO 0.1 mg TID [place] Administration Protocol Duloxetine HCl 30 mg 06/14/25 21:00 06/15/25 08:04 Duloxetine Hcl 30 Mg Capsule.Dr PO 30 mg BID [place] Administration Hydroxyzine HCl 25 mg 06/14/25 21:00 06/15/25 12:17 Hydroxyzine Hcl 25 Mg Tablet PO 25 mg QID [place] Administration Lisinopril 5 mg 06/15/25 09:00 06/15/25 08:04 Lisinopril 5 Mg Tablet PO 5 mg DAILY [place] Administration Protocol Methadone HCl 10 mg 06/14/25 20:14 06/14/25 20:29 Methadone Hcl 10 Mg Tablet PO 10 mg Q8H PRN Administration Pain (Scale Score 4-6) Metoprolol Tartrate 50 mg 06/14/25 21:00 06/15/25 08:04 Metoprolol Tartrate 50 Mg Tablet PO 50 mg BID [place] Administration Protocol Nifedipine 60 mg 06/15/25 09:00 06/15/25 08:04 Nifedipine Er 60 Mg Tab.Er.24 PO 60 mg DAILY [place] Administration Protocol Oxycodone HCl 15 mg 06/15/25 02:54 06/15/25 12:18 Oxycodone Hcl Immed Release 15 Mg Tablet PO 15 mg Q6H PRN Administration Pain, Severe (Pain Scale 7-10) Rivaroxaban 20 mg 06/14/25 20:15 06/14/25 21:02 Rivaroxaban 20 Mg Tablet PO 20 mg DAILY@1700 [place] Administration Trazodone HCl 50 mg 06/14/25 21:00 06/14/25 21:02 Trazodone Hcl 50 Mg Tablet PO 50 mg BEDTIME [place] Administration Discontinued Medications Generic Name Dose Route Start Last Admin Trade Name Glenna PRN Reason Stop Dose Admin Oxycodone HCl 15 mg 06/14/25 20:16 06/14/25 20:30 Oxycodone Hcl Immed Release 15 Mg Tablet PO 06/14/25 20:17 15 mg ONCE ONE Administration Medical Decision Making Medical Decision Making [facility] Narrative: 6:52 PM 06/14/2025 (Tere GILBERT): Patient is a 69-year-old male presenting to the ED via EMS from his assisted living facility for reports of suicidal ideation with a plan to cut his throat. Patient in the ED denies any suicidal or homicidal ideation, denies any acute somatic complaint. Patient's exam is reassuring. Laboratory evaluation shows no leukocytosis, significant anemia, electrolyte abnormality, or FELIZ. Urinalysis is negative for infection, toxicology is consistent with the patient's prescription history otherwise negative. Patient is medically cleared for crisis evaluation. Lab Data MDM Lab Attestation statement: I reviewed the patient's lab results. 06/14/25 17:36 06/14/25 17:36 Labs: Lab Results 06/14/25 Range/Units 17:36 WBC 6.8 (4.8-10.8) X10*3/uL RBC 4.59 L (4.60-5.80) X10*6/uL Hgb 13.5 L (14.0-18.0) g/dl Hct 40.1 L (42.0-52.0) % MCV 87.4 (80.0-98.0) fL MCH 29.4 (27.0-33.0) pg MCHC 33.7 (31.0-36.0) g/dl RDW 12.6 (11.0-16.0) % Plt Count 193 (160-400) X10*3/uL MPV 9.7 (9.4-12.4) fL Immature Gran % (Auto) 0.3 (0.0-0.4) % Neut % (Auto) 60.4 (45-73) % Lymph % (Auto) 27.5 (20-40) % [place] % (Auto) 8.7 (2-11) % Eos % (Auto) 2.8 (0-4) % Baso % (Auto) 0.3 (0-2) % Lymph # (Auto) 1.9 (1.2-4.9) X10*3/uL [place] # (Auto) 0.6 (0.1-1.2) X10*3/uL Eos # (Auto) 0.2 (0.0-0.4) X10*3/uL Baso # (Auto) 0.0 (0.0-0.2) X10*3/uL Abs Immat Gran (auto) 0.02 (0.00-0.03) X10*3/uL Absolute Neuts (auto) 4.1 (2.0-8.3) x10*3/uL Absolute Nucleated RBC 0.000 (0.0-0.012) X10*3/uL Nucleated RBC % (auto) 0.0 (0.0-0.2) /100WBC Sodium 138 (135-145) mmol/L Potassium 4.1 (3.3-5.1) mmol/L Chloride 102 (96-108) mmol/L Carbon Dioxide 26 (22-29) mmol/L Anion Gap 14 (12-20) BUN 16 (9-16) mg/dL Creatinine 0.88 (0.5-1.4) mg/dL Estim Creat Clear Calc 85.1 Estimated GFR > 60 Random Glucose 99 (60-115) mg/dL Calcium 9.4 D (8.4-10.2) mg/dL Total Bilirubin 0.4 (0.0-1.0) mg/dL AST 29 (5-37) U/L ALT 13 (0-40) U/L Alkaline Phosphatase 83 (39-117) U/L Total Protein 8.1 H (6.5-8.0) g/dL Albumin 4.3 (3.5-5.0) g/dL Urine Color Yellow Urine Appearance Clear Urine pH 6.0 (5.0-9.0) Ur Specific [place] 1.025 (1.005-1.025) Urine Protein Trace (Neg-Trace) mg/dL Urine Glucose (UA) Negative (Negative) mg/dL Urine Ketones Negative (Negative) mg/dL Urine Blood Negative (Negative) Urine Nitrite Negative (Negative) Ur Leukocyte Esterase Negative (Negative) Salicylates < 5.0 L (15-30) mg/dL Urine Opiates Screen POSITIVE H (Not Detect) Ur Buprenorphine Scrn Not Detected (Not Detect) ng/mL Ur Oxycodone Screen Positive H (Not Detect) ng/mL Urine Methadone Screen Positive H (Not Detect) ng/mL Urine Fentanyl Screen Not Detected (Not Detect) Acetaminophen < 3 (<30) mcg/mL Ur Barbiturates Screen Not Detected (Not Detect) Ur Phencyclidine Scrn Not Detected (Not Detect) Ur Amphetamines Screen Not Detected (Not Detect) U Benzodiazepines Scrn Not Detected (Not Detect) Urine Cocaine Screen Not Detected (Not Detect) U Marijuana (THC) Screen POSITIVE H (Not Detect) Ethyl Alcohol < 10 mg/dL Discharge Plan Discharge Clinical Impression: MDD (major depressive disorder), recurrent episode, moderate Patient Disposition: Admitted As Inpatient Interventions: [place]-Suicide Risk Severity Scale Last Done: 06/14/25 17:25
--- NOTE | 2025-06-14 19:44 | PC.NURSE ---
pt agitated, speaking in a disruptive tone about wanting to leave, saying these biddies snitched on me...I am not suicidal. deescalated by krunal and this RN. pt requested evening meds. VLADIMIR Sinha contacted
[2025-06-14] MEDS: oxyCODONE HCl Immed Release 15 MG TABLET PO (20:30)
--- NOTE | 2025-06-14 20:45 | PC.NURSE ---
verified count of oxycodone with charge Flores, pharmacy contacted about a single pill package came apart and pill inside slid into neighboring pocket. stated to this RN that problem will be resolved. visualized by carlos Tanner. pt accepted ordered med.
--- NOTE | 2025-06-14 21:09 | PC.NURSE ---
pt more calm and understanding at this time, calmly took meds. requested this nurse cover him with blankets. he states his needs are met at this time
[2025-06-14 21:13] VITALS: BP 131/77; PULSE 87; RESP 16; O2SAT 96
[2025-06-14 21:29] VITALS: RESP 16
--- NOTE | 2025-06-15 | ECG_ITS ---
Test Reason : R/O QTC PROLONGATION Blood Pressure : */* mmHG Vent. Rate : 75 BPM Atrial Rate : * BPM P-R Int : * ms QRS Dur : 78 ms QT Int : 406 ms P-R-T Axes : * 65 71 degrees QTcB Int : 453 ms Atrial paced rhythm Anteroseptal infarct (cited on or before 27-Apr-2024) Abnormal ECG When compared with ECG of 04-Jul-2024 13:59, No significant changes seen Referred By: Chito Fraser Electronically Signed By: Carlos Baez
[2025-06-15] MEDS: oxyCODONE HCl Immed Release 15 MG TABLET PO ×3 (03:21→21:33)
--- NOTE | 2025-06-15 03:23 | PC.NURSE ---
patient requested oxycodone for pain, medicated per MAR
--- NOTE | 2025-06-15 07:43 | PC.NURSE ---
Assumed care of patient at 0650, appears to be in no apparent distress this am, calm and cooperative, currently resting in bed watching TV. Pt declines wanting to use walker to ambulate, this RN and HE Andrade encouraged patient to utilize it for stability . Continue plan of care for rupa IPLOC
[2025-06-15 07:46] VITALS: BP 141/89; PULSE 83; RESP 16; TEMP 36.9; O2SAT 98
[2025-06-15 08:04] VITALS: BP 141/89; PULSE 83
[2025-06-15] MEDS: NIFEdipine ER 60 MG TAB.ER.24 PO (08:04)
--- NOTE | 2025-06-15 11:57 | PC.NURSE ---
Contacted main ED regarding patient's requested Oxycodone 15mg PRN. Spoke with Belén Guerrero RN and awaiting receipt of medication. Medication unavailable in ED BH Pod Pyxis.
--- NOTE | 2025-06-15 12:19 | PC.NURSE ---
Medicated for pain with PRN Oxycodone. Patient accepted/took medication. However, while talking, patient stated sorry, I'm not supposed to talk about my feelings and stuff here. Your job is to just do what you need to do, but not help me . This RN encouraged the patient to talk, then patient stated that this RN is fucking stupid. I can go home, there's nothing wrong with me . Patient is now talking to himself while watching TV. Care ongoing by this RN since 11 AM today.
[2025-06-15 15:17] VITALS: BP 169/91; PULSE 92; RESP 20; TEMP 36.4; O2SAT 99
--- NOTE | 2025-06-15 16:13 | HO.PSYADMNOT ---
HPI Date of Service: 06/15/25 Chief Complaint: SI Sources of Information: patient interviewed, chart reviewed and crisis/core team assessment reviewed HPI Subjective Notes: [place]ipson Warning and Conditional Voluntary Narrative: Patient is a 69-year-old male with history of MDD, PTSD and opiate use disorder who presented to ER via ambulance from his assisted living facility due to patient making suicidal statements. Per crisis report, patient presented to ER via ambulance from his assisted living facility. 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 Patient has also been increasingly verbally aggressive, posturing, yelling and screaming in the faces of his peers and staff. Upon arrival to ER, patient reports suicidal ideation with a plan to cut his throat. History of multiple inpatient psychiatric hospitalizations. Patient reports he is unhappy with where he lives and states that he would be better off . Patient reports that he is miserable and lonely and has no one to love . Patient denies HI/VH/AH. History of making suicidal threats and statements at baseline. History of suicide attempt via overdose on medications. History of self-injurious behavior via cutting. Collateral was obtained from, Florence JUAREZ executive sales manager [facility] [employer] [facility] [facility], who reports patient recently had increase in his methadone which has led to patient becoming increasingly irritable. She reports since his methadone was increased then decreased, he has been increasingly suicidal and making more threats. During admission assessment, patient presents alert and oriented x3. Calm and cooperative. Patient reports feeling depressed ; patient stated, I'm depressed but I don't need to be here. I never said I'm going to kill myself. I said, I would rather be and I would. I said, I could cut myself in the throat but I'm not going to. I wouldn't say that because it would get me in trouble. I'm not stupid . Patient reports he did yell at 2 of his peers at the assisted living facility because he does not get along with them. Patient reports chronic passive SI but denies plan or intent. Denies HI/VH/AH. Patient reports being medication compliant at home. Patient reports he is not interested in having a referral to a therapist or psychiatrist. Patient reports he is not happy with his current living situation ; patient stated, I don't want to go back there. I have always lived alone. I make enough to live alone in an apartment . Patient signed three-day notice stating that he would rather be at his home then locked up in a hospital . Continues to adamantly deny making statements saying that he would cut his throat or actively had a plan. Past Psychiatric History: History of multiple inpatient psychiatric hospitalizations Does not have outpatient psychiatric providers at this time. History of SA via overdose on medications History of SIB via cutting Medical Evaluation Reviewed: Yes [facility] Medical History MDD (major depressive disorder), recurrent episode, moderate Paroxysmal atrial fibrillation History of intravenous drug abuse Presence of combination internal cardiac defibrillator (ICD) and pacemaker Ventricular arrhythmia Opioid dependence Lumbar disc herniation Thoracic disc herniation Cervical disc herniation Opioid abuse Pacemaker HTN (hypertension) Surgical History History of spinal fusion History of hip replacement Family History: Denies Social History: . Lives in assisted living, [facility]. Loss of 2 wives. No children. 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 Hx of incarceration for drug related offenses x 2 Substance History: History of opiate use, cocaine use and marijuana. Trauma History: yes Diagnostics Vital Signs (24Hr): Vital Signs - 24 hr 06/14/25 17:14 06/14/25 17:44 06/14/25 21:13 Temperature 98.7 F Pulse Rate 82 87 Respiratory Rate 18 18 16 Blood Pressure 146/92 H 131/77 Pulse Oximetry 98 96 Oxygen Delivery Method Room Air Room Air 06/14/25 21:29 06/15/25 07:46 06/15/25 08:04 Temperature 98.4 F Pulse Rate 83 Respiratory Rate 16 16 Blood Pressure 141/89 H 141/89 H Pulse Oximetry 98 Oxygen Delivery Method Room Air 06/15/25 08:04 06/15/25 08:04 06/15/25 08:04 Temperature Pulse Rate 83 Respiratory Rate Blood Pressure 141/89 H 141/89 H 141/89 H Pulse Oximetry Oxygen Delivery Method 06/15/25 15:17 Temperature 97.6 F Pulse Rate 92 Respiratory Rate 20 Blood Pressure 169/91 H Pulse Oximetry 99 Oxygen Delivery Method Room Air BMI result Body Mass Index 23.1 Labs 06/14/25 17:36 06/14/25 17:36 Labs: Laboratory Results - last 48 hr 06/14/25 17:36 WBC 6.8 RBC 4.59 L Hgb 13.5 L Hct 40.1 L MCV 87.4 MCH 29.4 MCHC 33.7 RDW 12.6 Plt Count 193 MPV 9.7 Immature Gran % (Auto) 0.3 Neut % (Auto) 60.4 Lymph % (Auto) 27.5 [place] % (Auto) 8.7 Eos % (Auto) 2.8 Baso % (Auto) 0.3 Lymph # (Auto) 1.9 [place] # (Auto) 0.6 Eos # (Auto) 0.2 Baso # (Auto) 0.0 Abs Immat Gran (auto) 0.02 Absolute Neuts (auto) 4.1 Absolute Nucleated RBC 0.000 Nucleated RBC % (auto) 0.0 Sodium 138 Potassium 4.1 Chloride 102 Carbon Dioxide 26 Anion Gap 14 BUN 16 Creatinine 0.88 Estim Creat Clear Calc 85.1 Estimated GFR > 60 Random Glucose 99 Calcium 9.4 D Total Bilirubin 0.4 AST 29 ALT 13 Alkaline Phosphatase 83 Total Protein 8.1 H Albumin 4.3 Urine Color Yellow Urine Appearance Clear Urine pH 6.0 Ur Specific [place] 1.025 Urine Protein Trace Urine Glucose (UA) Negative Urine Ketones Negative Urine Blood Negative Urine Nitrite Negative Ur Leukocyte Esterase Negative Salicylates < 5.0 L Urine Opiates Screen POSITIVE H Ur Buprenorphine Scrn Not Detected Ur Oxycodone Screen Positive H Urine Methadone Screen Positive H Urine Fentanyl Screen Not Detected Acetaminophen < 3 Ur Barbiturates Screen Not Detected Ur Phencyclidine Scrn Not Detected Ur Amphetamines Screen Not Detected U Benzodiazepines Scrn Not Detected Urine Cocaine Screen Not Detected U Marijuana (THC) Screen POSITIVE H Ethyl Alcohol < 10 Meds/Allergies Meds Home Medications ?Medication ?Instructions ?Recorded ?Confirmed ?Type methadone 5 mg tablet 10 mg PO Q8H PRN Pain (Scale Score 10/21/22 06/14/25 History 4-6) hydroxyzine HCl 25 mg tablet 25 mg PO QID anxiety/insomnia 12/12/23 06/14/25 History nifedipine 90 mg tablet,extended 60 mg PO DAILY 07/04/24 06/14/25 History release 24 hr (Procardia XL) rivaroxaban 20 mg tablet (Xarelto) 20 mg PO DAILY@1700 07/04/24 06/14/25 History duloxetine 30 mg capsule,delayed 30 mg PO BID 03/23/25 06/14/25 History release clonidine HCl 0.1 mg tablet 0.1 mg PO TID 06/14/25 06/14/25 History oxycodone 15 mg tablet 15 mg PO QID PRN Pain 06/14/25 06/14/25 History Allergies Allergies Allergy/AdvReac Type Severity Reaction Status Date / Time ergotamine (ERGOTAMINE) AdvReac Severe NAUSEA Verified 06/14/25 17:17 Mental Status Exam Mental Status Exam Narrative: Pt is alert and oriented; behavior is cooperative and calm, guarded; dressed in hospital attire; mood is described as depressed ; eye contact appropriate; Speech is normal rate, volume and not pressured; thought process is organized; Thought content is on discharge; denies HI/VH/AH. Pt reports chronic passive suicidal ideation with no plan or intent. Assessment & Plan Assessment & Plan (1) MDD (major depressive disorder), recurrent episode: Status: Acute Code(s): F33.9 - Major depressive disorder, recurrent, unspecified (2) PTSD (post-traumatic stress disorder): Status: Acute Code(s): F43.10 - Post-traumatic stress disorder, unspecified (3) Opioid use disorder: Status: Acute Code(s): F11.90 - Opioid use, unspecified, uncomplicated Plan Patient is a 69-year-old male with history of MDD, PTSD and opiate use disorder who presented to ER via ambulance from his assisted living facility due to patient making suicidal statements. Plan: / day notice 15 minute safety checks Continue home medications Obtain collateral Encourage groups Discharge planning Patient educated on: diagnosis and medication risk/benefits Reason for continued inpatient stay Substantial Risk for: med/psych decompensation Statement Statement: I have reviewed the history and physical and performed a pertinent examination on my patient. No changes have occurred unless specified. If the History and Physical was not performed prior to admission, the Hospitalist's service will be consulted for completing the admission physical. Time Spent With Patient Time: Total time managing care of this patient today __60__ minutes.
[2025-06-15 16:34] VITALS: BP 141/78; PULSE 79
--- NOTE | 2025-06-15 17:07 | PC.ADMIT ---
Addendum entered and electronically signed by Angeles Montilla RN 06/15/25 18:07: Med list from [facility] and copy of HCP in chart. Original Note: Addendum entered and electronically signed by Angeles Montilla RN 06/15/25 17:36: Provided walker while in ED which he refuses to utilize. States he has a walker at home which is only used to hang clothes on. Reports he utilizes cane at home and has one with him. Informed can cannot be utilized on unit, walker is substituted. Continues to decline use of walker. Original Note: This is one of multiple admissions for this 69 y.o. male to the behavioral health units at [facility]. Prior admission hx to S1, M3 and M5 in 2021. Referred by [facility] Care Team with Dx: Major Depressive D/O, Opioid Dependence. Arrived on unit at 1506 on a [address] and placed on 15 min safety checks. Precipitating events to admission: presented to [facility] ED via ambulance after being seen at his [facility] by [facility] crisis. Pt was seen by [facility] crisis per scientific programmer analyst of [facility] request after he was found wandering around the property reporting he was looking for objects to complete suicide. Pt has reportedly been increasingly verbally aggressive, posturing, yelling/screaming in faces of peers and staff at [facility]. Upon arrival to ED pt reported SI with plan to cut throat. Pt denies SI/HI at time of admission to this unit and denies statements of SI at [facility] and ED. Records indicate prior SA attempt with OD which pt denies. Hx cutting, scarring noted upper chest and both arms during skin assessment. Redness noted toes on both feet and lower legs, bottoms of feet dry. Tox screen positive for Opiates, Oxycodone, Methadone, Marijuana. Prescribed all meds, States he has medical marijuana card. Reports Hx heroin, etoh, cocaine use 20 years ago, not currently. Medical issues: HTN, Paroxysmal Afib, herniated discs thoracic/ lumbar/cervical, presence of combination internal cardiac defibrillator and pacemaker. States pacemaker has not worked in 10 years. Signed CV and 3 day notice after meeting with prescriber, Renate Arana. Cooperative with assessment, but difficulty noted remaining on topic. Stated multiple times that no one cares about him. Spoke about of 2 wives and being alone, living in an old age place and everyone is old. Stated, I didn't do anything to be in this situation, but get old. I am just horribly, terribly unhappy. Speaks negatively about multiple things frequently. Denies AH/VH. Alert and oriented to person, place and year. Lacks insight into situation.
--- NOTE | 2025-06-15 17:41 | PC.NURSE ---
Submitted 3 day notice which is up on Thursday06/20/25; treatment team notified.
[2025-06-15 20:00] VITALS: BP 126/85; PULSE 91; RESP 18; TEMP 36.4; O2SAT 94
[2025-06-15 21:19] VITALS: BP 92/58; PULSE 72; RESP 18; TEMP 36.4; O2SAT 96
[2025-06-16] MEDS: oxyCODONE HCl Immed Release 15 MG TABLET PO ×3 (05:24→21:08)
[2025-06-16 07:25] VITALS: BP 155/91; PULSE 75; RESP 20; TEMP 36.6; O2SAT 98
[2025-06-16] MEDS: NIFEdipine ER 60 MG TAB.ER.24 PO (08:19)
--- NOTE | 2025-06-16 08:55 | HO.PSYCHPN ---
Subjective Subjective Date of Service: 06/16/25 Reason For Visit: SI Subjective Notes: 3 Day Interim History: Active on unit. social with select peers. Patient reports feeling depressed and a little cranky today; pt stated, I feel the same as always. I feel suicidal but I'm not going to do it . He reports sleeping well last night. denies SI/HI/VH/AH. 3 day notice up on 06/20/25. Continue current tx plan. Medication Compliance: Yes Side effects from medications: No Attending Groups: Intermittent Mental Status Exam Mental Status Exam Narrative: Pt is alert and oriented; behavior is cooperative and calm; dressed in hospital attire; mood is described as depressed ; eye contact appropriate; Speech is normal rate, volume and not pressured; thought process is organized; Thought content is on discharge; denies HI/VH/AH. Pt reports chronic passive suicidal ideation with no plan or intent. Diagnostics Vital Signs (24Hr): Vital Signs - 24 hr 06/15/25 15:17 06/15/25 16:34 06/15/25 20:00 Temperature 97.6 F 97.6 F Pulse Rate 92 79 91 Respiratory Rate 20 18 Blood Pressure 169/91 H 141/78 H 126/85 Pulse Oximetry 99 94 Oxygen Delivery Method Room Air Room Air 06/15/25 21:19 06/16/25 07:25 Temperature 97.6 F 97.8 F Pulse Rate 72 75 Respiratory Rate 18 20 Blood Pressure 92/58 L 155/91 H Pulse Oximetry 96 98 Oxygen Delivery Method Room Air Room Air BMI result Body Mass Index 23.1 Labs 06/14/25 17:36 06/16/25 08:33 Labs: Laboratory Results - last 48 hr 06/14/25 17:36 WBC 6.8 RBC 4.59 L Hgb 13.5 L Hct 40.1 L MCV 87.4 MCH 29.4 MCHC 33.7 RDW 12.6 Plt Count 193 MPV 9.7 Immature Gran % (Auto) 0.3 Neut % (Auto) 60.4 Lymph % (Auto) 27.5 [place] % (Auto) 8.7 Eos % (Auto) 2.8 Baso % (Auto) 0.3 Lymph # (Auto) 1.9 [place] # (Auto) 0.6 Eos # (Auto) 0.2 Baso # (Auto) 0.0 Abs Immat Gran (auto) 0.02 Absolute Neuts (auto) 4.1 Absolute Nucleated RBC 0.000 Nucleated RBC % (auto) 0.0 Sodium 138 Potassium 4.1 Chloride 102 Carbon Dioxide 26 Anion Gap 14 BUN 16 Creatinine 0.88 Estim Creat Clear Calc 85.1 Estimated GFR > 60 Random Glucose 99 Calcium 9.4 D Total Bilirubin 0.4 AST 29 ALT 13 Alkaline Phosphatase 83 Total Protein 8.1 H Albumin 4.3 Urine Color Yellow Urine Appearance Clear Urine pH 6.0 Ur Specific [place] 1.025 Urine Protein Trace Urine Glucose (UA) Negative Urine Ketones Negative Urine Blood Negative Urine Nitrite Negative Ur Leukocyte Esterase Negative Salicylates < 5.0 L Urine Opiates Screen POSITIVE H Ur Buprenorphine Scrn Not Detected Ur Oxycodone Screen Positive H Urine Methadone Screen Positive H Urine Fentanyl Screen Not Detected Acetaminophen < 3 Ur Barbiturates Screen Not Detected Ur Phencyclidine Scrn Not Detected Ur Amphetamines Screen Not Detected U Benzodiazepines Scrn Not Detected Urine Cocaine Screen Not Detected U Marijuana (THC) Screen POSITIVE H Ethyl Alcohol < 10 Medications Medications Current Medications Acetaminophen (Acetaminophen 325 Mg Tablet) 650 mg PO Q6H PRN PRN Reason: Headache/Pain, Scale 1-10 Al Hydroxide/Mg Hydroxide (Magnesium Hydrox/Alum Hydrox 30 Ml Oral.Susp) 30 ml PO Q6H PRN PRN Reason: Heartburn/Nausea Clonidine HCl (Clonidine Hcl 0.1 Mg Tablet) 0.1 mg PO TID [facility]; Protocol Last Admin: 06/16/25 08:18 Dose: 0.1 mg Duloxetine HCl (Duloxetine Hcl 30 Mg Capsule.Dr) 30 mg PO BID [facility] Last Admin: 06/16/25 08:19 Dose: 30 mg Hydroxyzine HCl (Hydroxyzine Hcl 25 Mg Tablet) 25 mg PO QID [facility] Last Admin: 06/16/25 08:18 Dose: 25 mg Hydroxyzine HCl (Hydroxyzine Hcl 25 Mg Tablet) 25 mg PO Q6H PRN PRN Reason: mild anxiety Lisinopril (Lisinopril 5 Mg Tablet) 5 mg PO DAILY [facility]; Protocol Last Admin: 06/16/25 08:18 Dose: 5 mg Magnesium Hydroxide (Milk Of Magnesia 30 Ml Oral.Susp) 30 ml PO DAILY PRN PRN Reason: Constipation Methadone HCl (Methadone Hcl 10 Mg Tablet) 10 mg PO Q8H PRN PRN Reason: Pain (Scale Score 4-6) Last Admin: 06/15/25 16:50 Dose: 10 mg Metoprolol Tartrate (Metoprolol Tartrate 50 Mg Tablet) 50 mg PO BID [facility]; Protocol Last Admin: 06/16/25 08:19 Dose: 50 mg Nicotine Polacrilex (Nicotine Polacrilex 2 Mg Gum) 4 mg [place] Q2H PRN PRN Reason: Nicotine Cravings Nifedipine (Nifedipine Er 60 Mg Tab.Er.24) 60 mg PO DAILY [facility]; Protocol Last Admin: 06/16/25 08:19 Dose: 60 mg Oxycodone HCl (Oxycodone Hcl Immed Release 15 Mg Tablet) 15 mg PO Q6H PRN PRN Reason: Pain, Severe (Pain Scale 7-10) Last Admin: 06/16/25 05:24 Dose: 15 mg Rivaroxaban (Rivaroxaban 20 Mg Tablet) 20 mg PO DAILY@1700 [place] Last Admin: 06/15/25 16:36 Dose: 20 mg Trazodone HCl (Trazodone Hcl 50 Mg Tablet) 50 mg PO BEDTIME [facility] Last Admin: 06/15/25 21:30 Dose: 50 mg Allergies Allergies Allergy/AdvReac Type Severity Reaction Status Date / Time ergotamine (ERGOTAMINE) AdvReac Severe NAUSEA Verified 06/14/25 17:17 Assessment & Plan Assessment & Plan (1) MDD (major depressive disorder), recurrent episode: Status: Acute Code(s): F33.9 - Major depressive disorder, recurrent, unspecified (2) PTSD (post-traumatic stress disorder): Status: Acute Code(s): F43.10 - Post-traumatic stress disorder, unspecified (3) Opioid use disorder: Status: Acute Code(s): F11.90 - Opioid use, unspecified, uncomplicated Plan Patient is a 69-year-old male with history of MDD, PTSD and opiate use disorder who presented to ER via ambulance from his assisted living facility due to patient making suicidal statements. Plan: /3 day notice 15 minute safety checks Continue home medications Obtain collateral Encourage groups Discharge planning 06/16: Active on unit. social with select peers. Patient reports feeling depressed and a little cranky today; pt stated, I feel the same as always. I feel suicidal but I'm not going to do it . He reports sleeping well last night. denies SI/HI/VH/AH. 3 day notice up on 06/20/25. Continue current tx plan. Patient educated on: diagnosis, medication risk/benefits and therapeutic strategies Reason for continued inpatient stay Substantial Risk for: med/psych decompensation Time Spent With Patient Time: Total time managing care of this patient today _20___ minutes.
[2025-06-16 09:11] LABS: Hemoglobin A1C 116.8602 umol/L; Total Hemoglobin (HGBA1C) 3746.2702 umol/L
[2025-06-16 09:25] LABS: Alanine Aminotransferase 12 U/L (0-40); Albumin Level 4.4 g/dL (3.5-5.0); Alkaline Phosphatase 83 U/L (39-117); Anion Gap 13 (12-20); Aspartate Amino Transferase 29 U/L (5-37); Blood Urea Nitrogen 14 mg/dL (9-16); Calcium 9.7 mg/dL (8.4-10.2); Carbon Dioxide 26 mmol/L (22-29); Chloride 104 mmol/L (96-108); Cholesterol 178 mg/dL (<200); Creatinine Clr Calc Pharmacy 81.4; Estimated Glomerular Filt Rate > 60; HDL Cholesterol 48 mg/dL (>40); Potassium 4.1 mmol/L (3.3-5.1); Sodium 139 mmol/L (135-145); Total Protein 8.3 g/dL (6.5-8.0); Triglycerides 95 mg/dL (<150)
--- NOTE | 2025-06-16 13:35 | MHC.CLN ---
CONSULT CONSULT FOR REPORTS 70 POUND WT LOSS IN PAST YEAR . REVIEW OF WEIGHT HX SHOWS SIGNIFICANT WEIGHT GAIN X 3 MONTHS, +13.2%, APPROX 20#. WEIGHT GAIN X 14 MONTHS, +17%, APPROX 25#. NO ADDITIONAL NUTRITION INTERVENTIONS AT THIS TIME.
[2025-06-16 15:15] VITALS: BP 133/72
[2025-06-16 21:00] VITALS: BP 132/75; PULSE 80; RESP 16; TEMP 36.4; O2SAT 98
[2025-06-16 21:08] VITALS: BP 132/75; PULSE 80
[2025-06-17] MEDS: oxyCODONE HCl Immed Release 15 MG TABLET PO ×3 (07:07→19:34)
[2025-06-17 07:51] VITALS: BP 147/87; PULSE 91; RESP 18; TEMP 36.1; O2SAT 95
[2025-06-17 08:44] VITALS: BP 147/87
[2025-06-17] MEDS: NIFEdipine ER 60 MG TAB.ER.24 PO (08:44)
[2025-06-17 08:45] VITALS: BP 147/87; PULSE 91
[2025-06-17 15:22] VITALS: BP 126/77
--- NOTE | 2025-06-17 17:15 | P.PNPSI_ITS ---
Subjective Subjective Date of Service: 06/17/25 Reason For Visit: SI Interim History: feels life is over for him. no friends, no loved ones, no family, no home. passive SI. asking to discharge. per staff, MDD, opioids. labile, sad. from TL. pain complaints. slept 8 hours. Mental Status Exam Mental Status Exam Narrative: Pt is alert and oriented; behavior is cooperative and calm; dressed in hospital attire; mood is described as depressed ; eye contact appropriate; Speech is normal rate, volume and not pressured; thought process is organized; Thought content is on discharge; denies HI/VH/AH. Pt reports chronic passive suicidal ideation with no plan or intent. Diagnostics Vital Signs (24Hr): Vital Signs - 24 hr 06/16/25 21:00 06/16/25 21:08 06/16/25 21:08 Temperature 97.6 F Pulse Rate 80 80 Respiratory Rate 16 Blood Pressure 132/75 132/75 132/75 Pulse Oximetry 98 Oxygen Delivery Method Room Air 06/17/25 07:51 06/17/25 08:44 06/17/25 08:44 Temperature 96.9 F Pulse Rate 91 Respiratory Rate 18 Blood Pressure 147/87 H 147/87 H 147/87 H Pulse Oximetry 95 Oxygen Delivery Method Room Air 06/17/25 08:45 06/17/25 08:45 06/17/25 15:22 Temperature Pulse Rate 91 Respiratory Rate Blood Pressure 147/87 H 147/87 H 126/77 Pulse Oximetry Oxygen Delivery Method BMI result Body Mass Index 23.1 Labs 06/14/25 17:36 06/16/25 08:33 Labs: Laboratory Results - last 48 hr 06/16/25 08:33 Sodium 139 Potassium 4.1 Chloride 104 Carbon Dioxide 26 Anion Gap 13 BUN 14 Creatinine 0.92 Estim Creat Clear Calc 81.4 Estimated GFR > 60 Random Glucose 171 H Estimat Average Glucose 97 Hemoglobin A1c % 5.0 Calcium 9.7 Total Bilirubin 0.4 AST 29 ALT 12 Alkaline Phosphatase 83 Total Protein 8.3 H Albumin 4.4 Triglycerides 95 Cholesterol 178 LDL Cholesterol, Calc 111 H HDL Cholesterol 48 Medications Medications Current Medications Acetaminophen (Acetaminophen 325 Mg Tablet) 650 mg PO Q6H PRN PRN Reason: Headache/Pain, Scale 1-10 Al Hydroxide/Mg Hydroxide (Magnesium Hydrox/Alum Hydrox 30 Ml Oral.Susp) 30 ml PO Q6H PRN PRN Reason: Heartburn/Nausea Clonidine HCl (Clonidine Hcl 0.1 Mg Tablet) 0.1 mg PO TID [facility]; Protocol Last Admin: 06/17/25 15:22 Dose: 0.1 mg Duloxetine HCl (Duloxetine Hcl 30 Mg Capsule.Dr) 30 mg PO BID [facility] Last Admin: 06/17/25 08:44 Dose: 30 mg Hydroxyzine HCl (Hydroxyzine Hcl 25 Mg Tablet) 25 mg PO QID [facility] Last Admin: 06/17/25 16:54 Dose: 25 mg Hydroxyzine HCl (Hydroxyzine Hcl 25 Mg Tablet) 25 mg PO Q6H PRN PRN Reason: mild anxiety Lisinopril (Lisinopril 5 Mg Tablet) 5 mg PO DAILY [facility]; Protocol Last Admin: 06/17/25 08:45 Dose: 5 mg Magnesium Hydroxide (Milk Of Magnesia 30 Ml Oral.Susp) 30 ml PO DAILY PRN PRN Reason: Constipation Methadone HCl (Methadone Hcl 10 Mg Tablet) 10 mg PO Q8H PRN PRN Reason: Pain (Scale Score 4-6) Last Admin: 06/17/25 10:54 Dose: 10 mg Metoprolol Tartrate (Metoprolol Tartrate 50 Mg Tablet) 50 mg PO BID [facility]; Protocol Last Admin: 06/17/25 08:45 Dose: 50 mg Nicotine Polacrilex (Nicotine Polacrilex 2 Mg Gum) 4 mg BUCCAL Q2H PRN PRN Reason: Nicotine Cravings Last Admin: 06/16/25 09:16 Dose: 4 mg Nifedipine (Nifedipine Er 60 Mg Tab.Er.24) 60 mg PO DAILY [facility]; Protocol Last Admin: 06/17/25 08:44 Dose: 60 mg Oxycodone HCl (Oxycodone Hcl Immed Release 15 Mg Tablet) 15 mg PO Q6H PRN PRN Reason: Pain, Severe (Pain Scale 7-10) Last Admin: 06/17/25 13:33 Dose: 15 mg Rivaroxaban (Rivaroxaban 20 Mg Tablet) 20 mg PO DAILY@1700 [facility] Last Admin: 06/17/25 16:54 Dose: 20 mg Trazodone HCl (Trazodone Hcl 50 Mg Tablet) 50 mg PO BEDTIME [facility] Last Admin: 06/16/25 21:07 Dose: 50 mg Allergies Allergies Allergy/AdvReac Type Severity Reaction Status Date / Time ergotamine (ERGOTAMINE) AdvReac Severe NAUSEA Verified 06/14/25 17:17 Assessment & Plan Assessment & Plan (1) MDD (major depressive disorder), recurrent episode: Status: Acute Code(s): F33.9 - Major depressive disorder, recurrent, unspecified (2) PTSD (post-traumatic stress disorder): Status: Acute Code(s): F43.10 - Post-traumatic stress disorder, unspecified (3) Opioid use disorder: Status: Acute Code(s): F11.90 - Opioid use, unspecified, uncomplicated Plan Patient is a 69-year-old male with history of MDD, PTSD and opiate use disorder who presented to ER via ambulance from his assisted living facility due to patient making suicidal statements. Plan: / day notice 15 minute safety checks Continue home medications Obtain collateral Encourage groups Discharge planning 06/16: Active on unit. social with select peers. Patient reports feeling depressed and a little cranky today; pt stated, I feel the same as always. I feel suicidal but I'm not going to do it . He reports sleeping well last night. denies SI/HI/VH/AH. 3 day notice up on 06/20/25. Continue current tx plan. 06/17: 3-day in. passive SI. feels he cannot be helped, his depression is situational: a man alone at the end of his days. continue current mgmt. Reason for continued inpatient stay Substantial Risk for: harm to self Time Spent With Patient Time: Total time managing care of this patient today _25___ minutes.
[2025-06-17 21:25] VITALS: BP 131/77; PULSE 83; RESP 16; TEMP 36.9; O2SAT 98
[2025-06-18 08:00] VITALS: BP 131/82; PULSE 75; RESP 16; TEMP 36.6; O2SAT 99
[2025-06-18] MEDS: NIFEdipine ER 60 MG TAB.ER.24 PO (09:23)
[2025-06-18 14:30] VITALS: BP 132/68
[2025-06-18] MEDS: oxyCODONE HCl Immed Release 15 MG TABLET PO ×2 (14:32→20:50)
--- NOTE | 2025-06-18 16:17 | P.PNPSI_ITS ---
Subjective Subjective Date of Service: 06/18/25 Reason For Visit: SI Interim History: feeling terrible. sitting in darkened interview room listening to headphones. no questions or complaints. per staff, 3-day notice up thursday. PRN oxy and methadone. irritable, negativistic. poor memory. Mental Status Exam Mental Status Exam Narrative: Pt is alert and oriented; behavior is cooperative and calm; dressed in hospital attire; mood is described as terrible; eye contact appropriate; Speech is normal rate, volume and not pressured; thought process is organized; Thought content is on discharge; denies HI/VH/AH. Pt reports chronic passive suicidal ideation with no plan or intent. Diagnostics Vital Signs (24Hr): Vital Signs - 24 hr 06/17/25 21:25 06/18/25 08:00 06/18/25 14:30 Temperature 98.5 F 97.9 F Pulse Rate 83 75 Respiratory Rate 16 16 Blood Pressure 131/77 131/82 132/68 Pulse Oximetry 98 99 Oxygen Delivery Method Room Air Room Air BMI result Body Mass Index 23.1 Labs 06/14/25 17:36 06/16/25 08:33 Medications Medications Current Medications Acetaminophen (Acetaminophen 325 Mg Tablet) 650 mg PO Q6H PRN PRN Reason: Headache/Pain, Scale 1-10 Al Hydroxide/Mg Hydroxide (Magnesium Hydrox/Alum Hydrox 30 Ml Oral.Susp) 30 ml PO Q6H PRN PRN Reason: Heartburn/Nausea Clonidine HCl (Clonidine Hcl 0.1 Mg Tablet) 0.1 mg PO TID [facility]; Protocol Last Admin: 06/18/25 14:30 Dose: 0.1 mg Duloxetine HCl (Duloxetine Hcl 30 Mg Capsule.Dr) 30 mg PO BID [facility] Last Admin: 06/18/25 09:21 Dose: 30 mg Hydroxyzine HCl (Hydroxyzine Hcl 25 Mg Tablet) 25 mg PO QID [facility] Last Admin: 06/18/25 14:33 Dose: 25 mg Hydroxyzine HCl (Hydroxyzine Hcl 25 Mg Tablet) 25 mg PO Q6H PRN PRN Reason: mild anxiety Lisinopril (Lisinopril 5 Mg Tablet) 5 mg PO DAILY [facility]; Protocol Last Admin: 06/18/25 09:22 Dose: 5 mg Magnesium Hydroxide (Milk Of Magnesia 30 Ml Oral.Susp) 30 ml PO DAILY PRN PRN Reason: Constipation Methadone HCl (Methadone Hcl 10 Mg Tablet) 10 mg PO Q8H PRN PRN Reason: Pain (Scale Score 4-6) Last Admin: 06/17/25 10:54 Dose: 10 mg Metoprolol Tartrate (Metoprolol Tartrate 50 Mg Tablet) 50 mg PO BID [facility]; Protocol Last Admin: 06/18/25 09:22 Dose: 50 mg Nicotine Polacrilex (Nicotine Polacrilex 2 Mg Gum) 4 mg BUCCAL Q2H PRN PRN Reason: Nicotine Cravings Last Admin: 06/16/25 09:16 Dose: 4 mg Nifedipine (Nifedipine Er 60 Mg Tab.Er.24) 60 mg PO DAILY [facility]; Protocol Last Admin: 06/18/25 09:23 Dose: 60 mg Oxycodone HCl (Oxycodone Hcl Immed Release 15 Mg Tablet) 15 mg PO Q6H PRN PRN Reason: Pain, Severe (Pain Scale 7-10) Last Admin: 06/18/25 14:32 Dose: 15 mg Rivaroxaban (Rivaroxaban 20 Mg Tablet) 20 mg PO DAILY@1700 [place] Last Admin: 06/17/25 16:54 Dose: 20 mg Trazodone HCl (Trazodone Hcl 50 Mg Tablet) 50 mg PO BEDTIME [place] Last Admin: 06/17/25 21:47 Dose: 50 mg Allergies Allergies Allergy/AdvReac Type Severity Reaction Status Date / Time ergotamine (ERGOTAMINE) AdvReac Severe NAUSEA Verified 06/14/25 17:17 Assessment & Plan Assessment & Plan (1) MDD (major depressive disorder), recurrent episode: Status: Acute Code(s): F33.9 - Major depressive disorder, recurrent, unspecified (2) PTSD (post-traumatic stress disorder): Status: Acute Code(s): F43.10 - Post-traumatic stress disorder, unspecified (3) Opioid use disorder: Status: Acute Code(s): F11.90 - Opioid use, unspecified, uncomplicated Plan Patient is a 69-year-old male with history of MDD, PTSD and opiate use disorder who presented to ER via ambulance from his assisted living facility due to patient making suicidal statements. Plan: day notice 15 minute safety checks Continue home medications Obtain collateral Encourage groups Discharge planning 06/16: Active on unit. social with select peers. Patient reports feeling depressed and a little cranky today; pt stated, I feel the same as always. I feel suicidal but I'm not going to do it . He reports sleeping well last night. denies SI/HI/VH/AH. 3 day notice up on 06/20/25. Continue current tx plan. 06/17: 3-day in. passive SI. feels he cannot be helped, his depression is situational: a man alone at the end of his days. continue current mgmt. 06/18: 3-day notice. feeling terrible, with enthusiasm. no change in presentation. continue current mgmt. Reason for continued inpatient stay Substantial Risk for: harm to self and inability to function Time Spent With Patient Time: Total time managing care of this patient today ____ minutes.
[2025-06-18 20:40] VITALS: BP 107/66; PULSE 86; RESP 16; TEMP 36.8; O2SAT 99
[2025-06-19] MEDS: oxyCODONE HCl Immed Release 15 MG TABLET PO ×3 (03:53→20:56)
[2025-06-19 07:15] VITALS: BP 137/87; PULSE 76; RESP 14; TEMP 36.4; O2SAT 96
[2025-06-19 09:38] VITALS: BP 137/87
[2025-06-19] MEDS: NIFEdipine ER 60 MG TAB.ER.24 PO (09:40)
[2025-06-19 09:41] VITALS: PULSE 76
--- NOTE | 2025-06-19 11:06 | HO.PSYCHPN ---
Subjective Subjective Date of Service: 06/19/25 Reason For Visit: SI Subjective Notes: 3 Day Interim History: Active on unit. social with peers. watching tv in common area. Patient reports feeling fine ; he reports looking forward to his birthday. He continues to report depression; pt stated, everyone I loved is . I hate where I live but I'm not suicidal . denies SI/HI/VH/AH. 3 day notice up on 06/20/25. Patient to return to [facility] [place]. Medication Compliance: Yes Side effects from medications: No Attending Groups: No Mental Status Exam Mental Status Exam Narrative: Pt is alert and oriented; behavior is cooperative, friendly and calm; dressed in casual attire; mood is described as fine ; eye contact appropriate; Speech is normal rate, volume and not pressured; thought process is organized, future oriented; Thought content is on discharge; denies SI/HI/VH/AH. Diagnostics Vital Signs (24Hr): Vital Signs - 24 hr 06/18/25 14:30 06/18/25 20:40 06/19/25 07:15 Temperature 98.2 F 97.5 F Pulse Rate 86 76 Respiratory Rate 16 14 Blood Pressure 132/68 107/66 137/87 Pulse Oximetry 99 96 Oxygen Delivery Method Room Air Room Air 06/19/25 09:38 06/19/25 09:41 Temperature Pulse Rate 76 Respiratory Rate Blood Pressure 137/87 Pulse Oximetry Oxygen Delivery Method BMI result Body Mass Index 23.1 Labs 06/14/25 17:36 06/16/25 08:33 Medications Medications Current Medications Acetaminophen (Acetaminophen 325 Mg Tablet) 650 mg PO Q6H PRN PRN Reason: Headache/Pain, Scale 1-10 Al Hydroxide/Mg Hydroxide (Magnesium Hydrox/Alum Hydrox 30 Ml Oral.Susp) 30 ml PO Q6H PRN PRN Reason: Heartburn/Nausea Clonidine HCl (Clonidine Hcl 0.1 Mg Tablet) 0.1 mg PO TID [facility]; Protocol Last Admin: 06/19/25 09:40 Dose: 0.1 mg Duloxetine HCl (Duloxetine Hcl 30 Mg Capsule.Dr) 30 mg PO BID [facility] Last Admin: 06/19/25 09:39 Dose: 30 mg Hydroxyzine HCl (Hydroxyzine Hcl 25 Mg Tablet) 25 mg PO QID [facility] Last Admin: 06/19/25 09:39 Dose: 25 mg Hydroxyzine HCl (Hydroxyzine Hcl 25 Mg Tablet) 25 mg PO Q6H PRN PRN Reason: mild anxiety Last Admin: 06/19/25 03:53 Dose: 25 mg Lisinopril (Lisinopril 5 Mg Tablet) 5 mg PO DAILY [facility]; Protocol Last Admin: 06/19/25 09:38 Dose: 5 mg Magnesium Hydroxide (Milk Of Magnesia 30 Ml Oral.Susp) 30 ml PO DAILY PRN PRN Reason: Constipation Methadone HCl (Methadone Hcl 10 Mg Tablet) 10 mg PO Q8H PRN PRN Reason: Pain (Scale Score 4-6) Last Admin: 06/17/25 10:54 Dose: 10 mg Metoprolol Tartrate (Metoprolol Tartrate 50 Mg Tablet) 50 mg PO BID [facility]; Protocol Last Admin: 06/19/25 09:41 Dose: 50 mg Nicotine Polacrilex (Nicotine Polacrilex 2 Mg Gum) 4 mg BUCCAL Q2H PRN PRN Reason: Nicotine Cravings Last Admin: 06/16/25 09:16 Dose: 4 mg Nifedipine (Nifedipine Er 60 Mg Tab.Er.24) 60 mg PO DAILY [facility]; Protocol Last Admin: 06/19/25 09:40 Dose: 60 mg Oxycodone HCl (Oxycodone Hcl Immed Release 15 Mg Tablet) 15 mg PO Q6H PRN PRN Reason: Pain, Severe (Pain Scale 7-10) Last Admin: 06/19/25 10:52 Dose: 15 mg Rivaroxaban (Rivaroxaban 20 Mg Tablet) 20 mg PO DAILY@1700 [facility] Last Admin: 06/18/25 17:17 Dose: 20 mg Trazodone HCl (Trazodone Hcl 50 Mg Tablet) 50 mg PO BEDTIME [facility] Last Admin: 06/18/25 20:50 Dose: 50 mg Allergies Allergies Allergy/AdvReac Type Severity Reaction Status Date / Time ergotamine (ERGOTAMINE) AdvReac Severe NAUSEA Verified 06/14/25 17:17 Assessment & Plan Assessment & Plan (1) MDD (major depressive disorder), recurrent episode: Status: Acute Code(s): F33.9 - Major depressive disorder, recurrent, unspecified (2) PTSD (post-traumatic stress disorder): Status: Acute Code(s): F43.10 - Post-traumatic stress disorder, unspecified (3) Opioid use disorder: Status: Acute Code(s): F11.90 - Opioid use, unspecified, uncomplicated Plan Patient is a 69-year-old male with history of MDD, PTSD and opiate use disorder who presented to ER via ambulance from his assisted living facility due to patient making suicidal statements. Plan: CV/3 day notice 15 minute safety checks Continue home medications Obtain collateral Encourage groups Discharge planning 06/16: Active on unit. social with select peers. Patient reports feeling depressed and a little cranky today; pt stated, I feel the same as always. I feel suicidal but I'm not going to do it . He reports sleeping well last night. denies SI/HI/VH/AH. 3 day notice up on 06/20/25. Continue current tx plan. 06/17: 3-day in. passive SI. feels he cannot be helped, his depression is situational: a man alone at the end of his days. continue current mgmt. 06/18: 3-day notice. feeling terrible, with enthusiasm. no change in presentation. continue current mgmt. 06/19: Active on unit. social with peers. watching tv in common area. Patient reports feeling fine ; he reports looking forward to his birthday. He continues to report depression; pt stated, everyone I loved is . I hate where I live but I'm not suicidal . denies SI/HI/VH/AH. 3 day notice up on 06/20/25. Patient to return to [facility] [place]. Patient educated on: diagnosis and medication risk/benefits Reason for continued inpatient stay Substantial Risk for: stable for discharge Time Spent With Patient Time: Total time managing care of this patient today _20___ minutes.
[2025-06-19 15:11] VITALS: BP 139/77
[2025-06-19 20:00] VITALS: BP 128/69; PULSE 77; RESP 16; TEMP 36.4; O2SAT 98
[2025-06-20] MEDS: oxyCODONE HCl Immed Release 15 MG TABLET PO ×3 (05:12→17:37)
[2025-06-20 07:29] VITALS: BP 124/75; PULSE 73; RESP 16; TEMP 36.4; O2SAT 98
[2025-06-20] MEDS: NIFEdipine ER 60 MG TAB.ER.24 PO (08:56)
--- NOTE | 2025-06-20 10:30 | HO.PSYCHPN ---
Subjective Subjective Date of Service: 06/20/25 Reason For Visit: SI Subjective Notes: 3 Day Interim History: Retracted 3 day notice and signed another, which is up 06/23/25. Patient continues to report feeling fine ; T/W and community mental health social worker, Rose, discussed a statement pt allegedly made during crisis assessment, that he was alluding towards obtaining a gun to have with him at assisted living facility . Patient stated, I never said that I wanted to hurt anyone. I don't have access to a gun and don't plan on getting one . Pt continues to catarino deny SI/HI/VH/AH. Medication Compliance: Yes Side effects from medications: No Attending Groups: No Mental Status Exam Mental Status Exam Narrative: Pt is alert and oriented; behavior is cooperative, friendly and calm; dressed in casual attire; mood is described as fine ; eye contact appropriate; Speech is normal rate, volume and not pressured; thought process is organized, future oriented; Thought content is on discharge; denies SI/HI/VH/AH. Diagnostics Vital Signs (24Hr): Vital Signs - 24 hr 06/19/25 15:11 06/19/25 20:00 06/20/25 07:29 Temperature 97.5 F 97.6 F Pulse Rate 77 73 Respiratory Rate 16 16 Blood Pressure 139/77 128/69 124/75 Pulse Oximetry 98 98 Oxygen Delivery Method Room Air Room Air BMI result Body Mass Index 23.1 Labs 06/14/25 17:36 06/16/25 08:33 Medications Medications Current Medications Acetaminophen (Acetaminophen 325 Mg Tablet) 650 mg PO Q6H PRN PRN Reason: Headache/Pain, Scale 1-10 Al Hydroxide/Mg Hydroxide (Magnesium Hydrox/Alum Hydrox 30 Ml Oral.Susp) 30 ml PO Q6H PRN PRN Reason: Heartburn/Nausea Clonidine HCl (Clonidine Hcl 0.1 Mg Tablet) 0.1 mg PO TID [facility]; Protocol Last Admin: 06/20/25 08:56 Dose: 0.1 mg Duloxetine HCl (Duloxetine Hcl 30 Mg Capsule.Dr) 30 mg PO BID [facility] Last Admin: 06/20/25 08:56 Dose: 30 mg Hydroxyzine HCl (Hydroxyzine Hcl 25 Mg Tablet) 25 mg PO QID [facility] Last Admin: 06/20/25 08:56 Dose: 25 mg Hydroxyzine HCl (Hydroxyzine Hcl 25 Mg Tablet) 25 mg PO Q6H PRN PRN Reason: mild anxiety Last Admin: 06/19/25 03:53 Dose: 25 mg Lisinopril (Lisinopril 5 Mg Tablet) 5 mg PO DAILY [facility]; Protocol Last Admin: 06/20/25 08:56 Dose: 5 mg Magnesium Hydroxide (Milk Of Magnesia 30 Ml Oral.Susp) 30 ml PO DAILY PRN PRN Reason: Constipation Methadone HCl (Methadone Hcl 10 Mg Tablet) 10 mg PO Q8H PRN PRN Reason: Pain (Scale Score 4-6) Last Admin: 06/19/25 11:05 Dose: 10 mg Metoprolol Tartrate (Metoprolol Tartrate 50 Mg Tablet) 50 mg PO BID [facility]; Protocol Last Admin: 06/20/25 08:56 Dose: 50 mg Nicotine Polacrilex (Nicotine Polacrilex 2 Mg Gum) 4 mg BUCCAL Q2H PRN PRN Reason: Nicotine Cravings Last Admin: 06/16/25 09:16 Dose: 4 mg Nifedipine (Nifedipine Er 60 Mg Tab.Er.24) 60 mg PO DAILY [facility]; Protocol Last Admin: 06/20/25 08:56 Dose: 60 mg Oxycodone HCl (Oxycodone Hcl Immed Release 15 Mg Tablet) 15 mg PO Q6H PRN PRN Reason: Pain, Severe (Pain Scale 7-10) Last Admin: 06/20/25 05:12 Dose: 15 mg Rivaroxaban (Rivaroxaban 20 Mg Tablet) 20 mg PO DAILY@1700 [facility] Last Admin: 06/19/25 17:21 Dose: 20 mg Trazodone HCl (Trazodone Hcl 50 Mg Tablet) 50 mg PO BEDTIME [facility] Last Admin: 06/19/25 20:33 Dose: 50 mg Allergies Allergies Allergy/AdvReac Type Severity Reaction Status Date / Time ergotamine (ERGOTAMINE) AdvReac Severe NAUSEA Verified 06/14/25 17:17 Assessment & Plan Assessment & Plan (1) MDD (major depressive disorder), recurrent episode: Status: Acute Code(s): F33.9 - Major depressive disorder, recurrent, unspecified (2) PTSD (post-traumatic stress disorder): Status: Acute Code(s): F43.10 - Post-traumatic stress disorder, unspecified (3) Opioid use disorder: Status: Acute Code(s): F11.90 - Opioid use, unspecified, uncomplicated Plan Patient is a 69-year-old male with history of MDD, PTSD and opiate use disorder who presented to ER via ambulance from his assisted living facility due to patient making suicidal statements. Plan: CV/3 day notice 15 minute safety checks Continue home medications Obtain collateral Encourage groups Discharge planning 06/16: Active on unit. social with select peers. Patient reports feeling depressed and a little cranky today; pt stated, I feel the same as always. I feel suicidal but I'm not going to do it . He reports sleeping well last night. denies SI/HI/VH/AH. 3 day notice up on 06/20/25. Continue current tx plan. 06/17: 3-day in. passive SI. feels he cannot be helped, his depression is situational: a man alone at the end of his days. continue current mgmt. 06/18: 3-day notice. feeling terrible, with enthusiasm. no change in presentation. continue current mgmt. 06/19: Active on unit. social with peers. watching tv in common area. Patient reports feeling fine ; he reports looking forward to his birthday. He continues to report depression; pt stated, everyone I loved is . I hate where I live but I'm not suicidal . denies SI/HI/VH/AH. 3 day notice up on 06/20/25. Patient to return to [facility]. 06/20: Retracted 3 day notice and signed another, which is up 06/23/25. Patient continues to report feeling fine ; T/W and community mental health social worker, Rose, discussed a statement pt allegedly made during crisis assessment, that he was alluding towards obtaining a gun to have with him at assisted living facility . Patient stated, I never said that I wanted to hurt anyone. I don't have access to a gun and don't plan on getting one . Pt continues to catarino wassermany SI/HI/VH/AH. Patient educated on: diagnosis and medication risk/benefits Reason for continued inpatient stay Substantial Risk for: med/psych decompensation Time Spent With Patient Time: Total time managing care of this patient today _20___ minutes.
[2025-06-20 14:13] VITALS: BP 121/66
[2025-06-20 21:03] VITALS: BP 90/53; PULSE 76; RESP 15; TEMP 36.6; O2SAT 97
--- NOTE | 2025-06-20 21:17 | PC.NURSE ---
provider Shakeel Granado notifed of BP 90/53, 76. will hold scheduled HS clonidine and metoprolol
[2025-06-21 02:22] VITALS: BP 143/99; PULSE 100; RESP 16
[2025-06-21] MEDS: oxyCODONE HCl Immed Release 15 MG TABLET PO ×3 (02:24→18:02)
--- NOTE | 2025-06-21 04:05 | PC.NURSE ---
OOB sitting in day room ''it's not fair I'm still alive'' ''everyone I love is gone'' ''I'm so mad at God''
[2025-06-21 04:30] VITALS: BP 131/80; PULSE 74; O2SAT 99
[2025-06-21 08:00] VITALS: BP 162/78; PULSE 78; RESP 16; TEMP 36.4; O2SAT 96
[2025-06-21] MEDS: NIFEdipine ER 60 MG TAB.ER.24 PO (08:19)
--- NOTE | 2025-06-21 12:26 | HO.PSYCHPN ---
Subjective Subjective Date of Service: 06/21/25 Reason For Visit: SI Subjective Notes: 3 Day Interim History: 3 day notice up 06/23/25. Patient continues to report feeling fine ; focused on discharge. Patient stated, I have no intention of harming myself or others . Observed keeping to self and listening to unit headphones. denies SI/HI/VH/AH. Continue current tx plan. Medication Compliance: Yes Side effects from medications: No Attending Groups: No Mental Status Exam Mental Status Exam Narrative: Pt is alert and oriented; behavior is cooperative, friendly and calm; dressed in casual attire; mood is described as fine ; eye contact appropriate; Speech is normal rate, volume and not pressured; thought process is organized; Thought content is on discharge; denies SI/HI/VH/AH. Diagnostics Vital Signs (24Hr): Vital Signs - 24 hr 06/20/25 14:13 06/20/25 21:03 06/21/25 02:22 Temperature 97.8 F Pulse Rate 76 100 Respiratory Rate 15 16 Blood Pressure 121/66 90/53 L 143/99 H Pulse Oximetry 97 Oxygen Delivery Method Room Air 06/21/25 04:30 06/21/25 08:00 Temperature 97.6 F Pulse Rate 74 78 Respiratory Rate 16 Blood Pressure 131/80 162/78 H Pulse Oximetry 99 96 Oxygen Delivery Method Room Air Room Air BMI result Body Mass Index 23.1 Labs 06/14/25 17:36 06/16/25 08:33 Medications Medications Current Medications Acetaminophen (Acetaminophen 325 Mg Tablet) 650 mg PO Q6H PRN PRN Reason: Headache/Pain, Scale 1-10 Last Admin: 06/21/25 04:40 Dose: 650 mg Al Hydroxide/Mg Hydroxide (Magnesium Hydrox/Alum Hydrox 30 Ml Oral.Susp) 30 ml PO Q6H PRN PRN Reason: Heartburn/Nausea Clonidine HCl (Clonidine Hcl 0.1 Mg Tablet) 0.1 mg PO TID [facility]; Protocol Last Admin: 06/21/25 08:20 Dose: 0.1 mg Duloxetine HCl (Duloxetine Hcl 30 Mg Capsule.Dr) 30 mg PO BID [facility] Last Admin: 06/21/25 08:19 Dose: 30 mg Hydroxyzine HCl (Hydroxyzine Hcl 25 Mg Tablet) 25 mg PO QID [facility] Last Admin: 06/21/25 08:19 Dose: 25 mg Hydroxyzine HCl (Hydroxyzine Hcl 25 Mg Tablet) 25 mg PO Q6H PRN PRN Reason: mild anxiety Last Admin: 06/21/25 04:41 Dose: 25 mg Lisinopril (Lisinopril 5 Mg Tablet) 5 mg PO DAILY [facility]; Protocol Last Admin: 06/21/25 08:20 Dose: 5 mg Magnesium Hydroxide (Milk Of Magnesia 30 Ml Oral.Susp) 30 ml PO DAILY PRN PRN Reason: Constipation Methadone HCl (Methadone Hcl 10 Mg Tablet) 10 mg PO Q8H PRN PRN Reason: Pain (Scale Score 4-6) Last Admin: 06/19/25 11:05 Dose: 10 mg Metoprolol Tartrate (Metoprolol Tartrate 50 Mg Tablet) 50 mg PO BID [facility]; Protocol Last Admin: 06/21/25 08:19 Dose: 50 mg Nicotine Polacrilex (Nicotine Polacrilex 2 Mg Gum) 4 mg BUCCAL Q2H PRN PRN Reason: Nicotine Cravings Last Admin: 06/16/25 09:16 Dose: 4 mg Nifedipine (Nifedipine Er 60 Mg Tab.Er.24) 60 mg PO DAILY [facility]; Protocol Last Admin: 06/21/25 08:19 Dose: 60 mg Oxycodone HCl (Oxycodone Hcl Immed Release 15 Mg Tablet) 15 mg PO Q6H PRN PRN Reason: Pain, Severe (Pain Scale 7-10) Last Admin: 06/21/25 11:28 Dose: 15 mg Rivaroxaban (Rivaroxaban 20 Mg Tablet) 20 mg PO DAILY@1700 [facility] Last Admin: 06/20/25 17:35 Dose: 20 mg Trazodone HCl (Trazodone Hcl 50 Mg Tablet) 50 mg PO BEDTIME [facility] Last Admin: 06/20/25 21:06 Dose: 50 mg Allergies Allergies Allergy/AdvReac Type Severity Reaction Status Date / Time ergotamine (ERGOTAMINE) AdvReac Severe NAUSEA Verified 06/14/25 17:17 Assessment & Plan Assessment & Plan (1) MDD (major depressive disorder), recurrent episode: Status: Acute Code(s): F33.9 - Major depressive disorder, recurrent, unspecified (2) PTSD (post-traumatic stress disorder): Status: Acute Code(s): F43.10 - Post-traumatic stress disorder, unspecified (3) Opioid use disorder: Status: Acute Code(s): F11.90 - Opioid use, unspecified, uncomplicated Plan Patient is a 69-year-old male with history of MDD, PTSD and opiate use disorder who presented to ER via ambulance from his assisted living facility due to patient making suicidal statements. Plan: /3 day notice 15 minute safety checks Continue home medications Obtain collateral Encourage groups Discharge planning 06/16: Active on unit. social with select peers. Patient reports feeling depressed and a little cranky today; pt stated, I feel the same as always. I feel suicidal but I'm not going to do it . He reports sleeping well last night. denies SI/HI/VH/AH. 3 day notice up on 06/20/25. Continue current tx plan. 06/17: 3-day in. passive SI. feels he cannot be helped, his depression is situational: a man alone at the end of his days. continue current mgmt. 06/18: 3-day notice. feeling terrible, with enthusiasm. no change in presentation. continue current mgmt. 06/19: Active on unit. social with peers. watching tv in common area. Patient reports feeling fine ; he reports looking forward to his birthday. He continues to report depression; pt stated, everyone I loved is . I hate where I live but I'm not suicidal . denies SI/HI/VH/AH. 3 day notice up on 06/20/25. Patient to return to [facility]. 06/20: Retracted 3 day notice and signed another, which is up 06/23/25. Patient continues to report feeling fine ; T/W and social services director, Rose, discussed a statement pt allegedly made during crisis assessment, that he was alluding towards obtaining a gun to have with him at assisted living facility . Patient stated, I never said that I wanted to hurt anyone. I don't have access to a gun and don't plan on getting one . Pt continues to catarino wassermany SI/HI/VH/AH. 06/21: 3 day notice up 06/23/25. Patient continues to report feeling fine ; focused on discharge. Patient stated, I have no intention of harming myself or others . Observed keeping to self and listening to unit headphones. denies SI/HI/VH/AH. Continue current tx plan. Patient educated on: diagnosis and medication risk/benefits Reason for continued inpatient stay Substantial Risk for: med/psych decompensation Time Spent With Patient Time: Total time managing care of this patient today _20___ minutes.
[2025-06-21 14:38] VITALS: BP 118/68; PULSE 81; RESP 18
[2025-06-21 19:45] VITALS: BP 105/61; PULSE 72; RESP 16; TEMP 36.3; O2SAT 97
[2025-06-21 20:51] VITALS: BP 117/76; PULSE 76
[2025-06-22] VITALS (7 sets, daily range): BP systolic 125–135; BP diastolic 67–80; PULSE 70–96; RESP 20; TEMP 36.1–36.3; O2SAT 96–100; BMI 20.8
[2025-06-22] MEDS: oxyCODONE HCl Immed Release 15 MG TABLET PO ×3 (04:16→16:44)
[2025-06-22] MEDS: NIFEdipine ER 60 MG TAB.ER.24 PO (09:02)
--- NOTE | 2025-06-22 10:35 | HO.PSYCHPN ---
Subjective Subjective Date of Service: 06/22/25 Reason For Visit: SI Subjective Notes: Conditional Voluntary Interim History: 3 day notice up 06/23/25. Patient reports feeling good today; pt reports feeling ready for discharge. Patient stated, I think it's funny to make provocative statements. I have a dark sense of humor . denies SI/HI/VH/AH. Plan to discharge tomorrow back to [facility]; pt aware. Medication Compliance: Yes Side effects from medications: No Attending Groups: No Mental Status Exam Mental Status Exam Narrative: Pt is alert and oriented; behavior is cooperative, friendly and calm; dressed in casual attire; mood is described as good ; eye contact appropriate; Speech is normal rate, volume and not pressured; thought process is organized; Thought content is on discharge; denies SI/HI/VH/AH. Diagnostics Vital Signs (24Hr): Vital Signs - 24 hr 06/21/25 14:38 06/21/25 19:45 06/21/25 20:51 Temperature 97.4 F Pulse Rate 81 72 76 Respiratory Rate 18 16 Blood Pressure 118/68 105/61 117/76 Pulse Oximetry 97 Oxygen Delivery Method Room Air 06/22/25 07:47 06/22/25 09:01 06/22/25 09:02 Temperature 97 F Pulse Rate 70 Respiratory Rate 20 Blood Pressure 126/80 126/80 126/80 Pulse Oximetry 100 Oxygen Delivery Method Room Air 06/22/25 09:02 06/22/25 09:02 Temperature Pulse Rate 70 Respiratory Rate Blood Pressure 126/80 126/80 Pulse Oximetry Oxygen Delivery Method BMI result Body Mass Index 20.8 Labs 06/14/25 17:36 06/16/25 08:33 Medications Medications Current Medications Acetaminophen (Acetaminophen 325 Mg Tablet) 650 mg PO Q6H PRN PRN Reason: Headache/Pain, Scale 1-10 Last Admin: 06/21/25 16:08 Dose: 650 mg Al Hydroxide/Mg Hydroxide (Magnesium Hydrox/Alum Hydrox 30 Ml Oral.Susp) 30 ml PO Q6H PRN PRN Reason: Heartburn/Nausea Clonidine HCl (Clonidine Hcl 0.1 Mg Tablet) 0.1 mg PO TID [place]; Protocol Last Admin: 06/22/25 09:01 Dose: 0.1 mg Duloxetine HCl (Duloxetine Hcl 30 Mg Capsule.Dr) 30 mg PO BID [place] Last Admin: 06/22/25 09:01 Dose: 30 mg Hydroxyzine HCl (Hydroxyzine Hcl 25 Mg Tablet) 25 mg PO QID [facility] Last Admin: 06/22/25 09:01 Dose: 25 mg Hydroxyzine HCl (Hydroxyzine Hcl 25 Mg Tablet) 25 mg PO Q6H PRN PRN Reason: mild anxiety Last Admin: 06/21/25 04:41 Dose: 25 mg Lisinopril (Lisinopril 5 Mg Tablet) 5 mg PO DAILY [facility]; Protocol Last Admin: 06/22/25 09:02 Dose: 5 mg Magnesium Hydroxide (Milk Of Magnesia 30 Ml Oral.Susp) 30 ml PO DAILY PRN PRN Reason: Constipation Methadone HCl (Methadone Hcl 10 Mg Tablet) 10 mg PO Q8H PRN PRN Reason: Pain (Scale Score 4-6) Last Admin: 06/21/25 16:08 Dose: 10 mg Metoprolol Tartrate (Metoprolol Tartrate 50 Mg Tablet) 50 mg PO BID [facility]; Protocol Last Admin: 06/22/25 09:02 Dose: 50 mg Nicotine Polacrilex (Nicotine Polacrilex 2 Mg Gum) 4 mg BUCCAL Q2H PRN PRN Reason: Nicotine Cravings Last Admin: 06/16/25 09:16 Dose: 4 mg Nifedipine (Nifedipine Er 60 Mg Tab.Er.24) 60 mg PO DAILY [facility]; Protocol Last Admin: 06/22/25 09:02 Dose: 60 mg Oxycodone HCl (Oxycodone Hcl Immed Release 15 Mg Tablet) 15 mg PO Q6H PRN PRN Reason: Pain, Severe (Pain Scale 7-10) Last Admin: 06/22/25 04:16 Dose: 15 mg Rivaroxaban (Rivaroxaban 20 Mg Tablet) 20 mg PO DAILY@1700 [facility] Last Admin: 06/21/25 16:08 Dose: 20 mg Trazodone HCl (Trazodone Hcl 50 Mg Tablet) 50 mg PO BEDTIME [facility] Last Admin: 06/21/25 20:51 Dose: 50 mg Allergies Allergies Allergy/AdvReac Type Severity Reaction Status Date / Time ergotamine (ERGOTAMINE) AdvReac Severe NAUSEA Verified 06/14/25 17:17 Assessment & Plan Assessment & Plan (1) MDD (major depressive disorder), recurrent episode: Status: Acute Code(s): F33.9 - Major depressive disorder, recurrent, unspecified (2) PTSD (post-traumatic stress disorder): Status: Acute Code(s): F43.10 - Post-traumatic stress disorder, unspecified (3) Opioid use disorder: Status: Acute Code(s): F11.90 - Opioid use, unspecified, uncomplicated Plan Patient is a 69-year-old male with history of MDD, PTSD and opiate use disorder who presented to ER via ambulance from his assisted living facility due to patient making suicidal statements. Plan: /3 day notice 15 minute safety checks Continue home medications Obtain collateral Encourage groups Discharge planning 06/16: Active on unit. social with select peers. Patient reports feeling depressed and a little cranky today; pt stated, I feel the same as always. I feel suicidal but I'm not going to do it . He reports sleeping well last night. denies SI/HI/VH/AH. 3 day notice up on 06/20/25. Continue current tx plan. 06/17: 3-day in. passive SI. feels he cannot be helped, his depression is situational: a man alone at the end of his days. continue current mgmt. 06/18: 3-day notice. feeling terrible, with enthusiasm. no change in presentation. continue current mgmt. 06/19: Active on unit. social with peers. watching tv in common area. Patient reports feeling fine ; he reports looking forward to his birthday. He continues to report depression; pt stated, everyone I loved is . I hate where I live but I'm not suicidal . denies SI/HI/VH/AH. 3 day notice up on 06/20/25. Patient to return to [facility]. 06/20: Retracted 3 day notice and signed another, which is up 06/23/25. Patient continues to report feeling fine ; T/W and drug abuse social worker, Rose, discussed a statement pt allegedly made during crisis assessment, that he was alluding towards obtaining a gun to have with him at assisted living facility . Patient stated, I never said that I wanted to hurt anyone. I don't have access to a gun and don't plan on getting one . Pt continues to catarino deny SI/HI/VH/AH. 06/21: 3 day notice up 06/23/25. Patient continues to report feeling fine ; focused on discharge. Patient stated, I have no intention of harming myself or others . Observed keeping to self and listening to unit headphones. denies SI/HI/VH/AH. Continue current tx plan. 06/22: 3 day notice up 06/23/25. Patient reports feeling good today; pt reports feeling ready for discharge. Patient stated, I think it's funny to make provocative statements. I have a dark sense of humor . denies SI/HI/VH/AH. Plan to discharge tomorrow back to [facility]; pt aware. Patient educated on: diagnosis and medication risk/benefits Reason for continued inpatient stay Substantial Risk for: stable for discharge Time Spent With Patient Time: Total time managing care of this patient today _20___ minutes.
[2025-06-23] MEDS: oxyCODONE HCl Immed Release 15 MG TABLET PO (06:35)
[2025-06-23 07:40] VITALS: BP 116/73; PULSE 79; RESP 16; TEMP 36; O2SAT 99
[2025-06-23] MEDS: NIFEdipine ER 60 MG TAB.ER.24 PO (08:23)
--- NOTE | 2025-06-23 09:20 | P.DS_ITS ---
DS: Providers Provider Date of Service: 06/23/25 Date of admission: 06/15/25 13:27 Date of discharge: 06/23/25 Primary care physician: Travis Mcarthur MD Admitting clinician: Renate Arana Attending physician on admission: Reinier Fairbanks Attending physician on discharge: Reinier Fairbanks Discharging clinician: Renate Arana DS: Diagnosis Discharge Diagnosis (1) MDD (major depressive disorder), recurrent episode: Status: Acute (2) PTSD (post-traumatic stress disorder): Status: Acute (3) Opioid use disorder: Status: Acute DS: Medications Discharge Medications Home Medications: Home Medications ?Medication ?Instructions ?Recorded ?Confirmed methadone 5 mg tablet 10 mg PO Q8H PRN Pain (Scale Score 10/21/22 06/14/25 4-6) hydroxyzine HCl 25 mg tablet 25 mg PO QID anxiety/inso mnia 12/12/23 06/14/25 nifedipine 90 mg tablet,extended 60 mg PO DAILY 06/14/25 release 24 hr (Procardia XL) rivaroxaban 20 mg tablet (Xarelto) 20 mg PO DAILY@1700 07/04/24 06/14/25 duloxetine 30 mg capsule,delayed 30 mg PO BID 03/23/25 06/14/25 release clonidine HCl 0.1 mg tablet 0.1 mg PO TID 06/14/25 oxycodone 15 mg tablet 15 mg PO QID PRN Pain 06/14/25 Previous Rx's ?Medication ?Instructions ?Recorded lisinopril 5 mg tablet 1 tab PO DAILY #30 tabs 10/03 05/23 trazodone 50 mg tablet 1 tab PO BEDTIME #30 tabs metoprolol tartrate 50 mg tablet 50 mg PO BID #60 tabs 04/14/23 Mental Status Exam Mental Status Exam Narrative: Pt is alert and oriented; behavior is cooperative, friendly and calm; dressed in casual attire; mood is described as good ; eye contact appropriate; Speech is normal rate, volume and not pressured; thought process is organized; Thought content is on discharge; denies SI/HI/VH/AH. Data Data Completed and Pending Completed studies during hospitalization [Text1]: 06/16/25 08:33 Sodium 139 Potassium 4.1 Chloride 104 Carbon Dioxide 26 Anion Gap 13 BUN 14 Creatinine 0.92 Estim Creat Clear Calc 81.4 Estimated GFR > 60 Random Glucose 171 H Calcium 9.7 Total Bilirubin 0.4 AST 29 ALT 12 Alkaline Phosphatase 83 Total Protein 8.3 H Albumin 4.4 Triglycerides 95 Cholesterol 178 LDL Cholesterol, Calc 111 H HDL Cholesterol 48 DS: Summary Hospital Course Hospital Course: Patient is a 69-year-old male with history of MDD, PTSD and opiate use disorder who presented to ER via ambulance from his assisted living facility due to patient making suicidal statements. Per crisis report, patient presented to ER via ambulance from his assisted living facility. Patient was seen at the request of the program evaluation consultant after patient was found wandering the property reporting he is looking for objects to complete suicide and making suicidal statements. Patient has also been increasingly verbally aggressive, posturing, yelling and screaming in the faces of his peers and staff. Upon arrival to ER, patient reports suicidal ideation with a plan to cut his throat. History of multiple inpatient psychiatric hospitalizations. Patient reports he is unhappy with where he lives and states that he would be better off . Patient reports that he is miserable and lonely and has no one to love . Patient denies HI/VH/AH. History of making suicidal threats and statements at baseline. History of suicide attempt via overdose on medications. History of self-injurious behavior via cutting. Collateral was obtained from, Florence JUAREZ assisted living executive director of [facility], who reports patient recently had increase in his methadone which has led to patient becoming increasingly irritable. She reports since his methadone was increased then decreased, he has been increasingly suicidal and making more threats. During admission assessment, patient presents alert and oriented x3. Calm and cooperative. Patient reports feeling depressed ; patient stated, I'm depressed but I don't need to be here. I never said I'm going to kill myself. I said, I would rather be and I would. I said, I could cut myself in the throat but I'm not going to. I wouldn't say that because it would get me in trouble. I'm not stupid . Patient reports he did yell at 2 of his peers at the assisted living facility because he does not get along with them. Patient reports chronic passive SI but denies plan or intent. Denies HI/VH/AH. Patient reports being medication compliant at home. Patient reports he is not interested in having a referral to a therapist or psychiatrist. Patient reports he is not happy with his current living situation ; patient stated, I don't want to go back there. I have always lived alone. I make enough to live alone in an apartment . Patient signed three-day notice stating that he would rather be at his home then locked up in a hospital . Continues to adamantly deny making statements saying that he would cut his throat or actively had a plan. Plan: CV/3 day notice 15 minute safety checks Continue home medications Obtain collateral Encourage groups Discharge planning Active on unit. social with select peers. Patient reports feeling depressed and a little cranky today; pt stated, I feel the same as always. I feel suicidal but I'm not going to do it . He reports sleeping well last night. denies SI/ HI/VH/AH. 3 day notice up on 06/20/25. Continue current tx plan. 3-day in. passive SI. feels he cannot be helped, his depression is situational: a man alone at the end of his days. continue current mgmt. 3-day notice. feeling terrible, with enthusiasm. no change in presentation. continue current mgmt. Active on unit. social with peers. watching tv in common area. Patient reports feeling fine ; he reports looking forward to his birthday. He continues to report depression; pt stated, everyone I loved is . I hate where I live but I'm not suicidal . denies SI/HI/VH/AH. 3 day notice up on 06/20/25. Patient to return to [facility]. Retracted 3 day notice and signed another, which is up 06/23/25. Patient continues to report feeling fine ; T/W and social science analyst, Rose, discussed a statement pt allegedly made during crisis assessment, that he was alluding towards obtaining a gun to have with him at assisted living facility . Patient stated, I never said that I wanted to hurt anyone. I don't have access to a gun and don't plan on getting one . Pt continues to catarino deny SI/HI/VH/AH. 3 day notice up 06/23/25. Patient continues to report feeling fine ; focused on discharge. Patient stated, I have no intention of harming myself or others . Observed keeping to self and listening to unit headphones. denies SI/HI/VH/AH. Continue current tx plan. 3 day notice up 06/23/25. Patient reports feeling good today; pt reports feeling ready for discharge. Patient stated, I think it's funny to make provocative statements. I have a dark sense of humor . denies SI/HI/VH/AH. Plan to discharge tomorrow back to [facility]; pt aware. Status at Discharge Cognitive/behavioral status at discharge: Patient has insight and demonstrates good judgment in terms of wanting to pursue treatment. Patient has a safety plan that includes presenting to the closest ER or calling 911 if feeling unsafe. Functional status at discharge: uses cane/walker Overall status at discharge: patient is back to baseline Time Spent with Patient Time attestation: Total time managing care of this patient today _20___ minutes. Time spent: Less than 30 minutes Discharge Plan Discharge Anticipated Discharge Date/Time: 06/23/25 11:00 Patient Disposition: Home, Self-Care Discharge Diagnosis: MDD, PTSD, opioid use d/o Referrals: Travis Mcarthur MD [Primary Care Provider, Medical] - 07/05/25 11:00 am Referral Note: 06-19-25 Your follow up appt has been scheduled for 07-05-25 @ 11am. Discharge Medications: Continued methadone 5 mg tablet 10 mg PO Q8H PRN (Reason: Pain (Scale Score 4-6)) trazodone 50 mg tablet 1 tab PO BEDTIME Qty: 30 0RF lisinopril 5 mg tablet 1 tab PO DAILY Qty: 30 0RF metoprolol tartrate 50 mg Tablet 50 mg PO BID Qty: 60 0RF Protocol: Hold for SBP/HR < HOLD for SBP < : 90 HOLD for HR < : 60 hydroxyzine HCl 25 mg tablet 25 mg PO QID nifedipine [Procardia XL] 90 mg Tablet Extended Release 24hr 60 mg PO DAILY Xarelto 20 mg tablet 20 mg PO DAILY@1700 duloxetine 30 mg Capsule,Delayed Release(Dr/Ec) 30 mg PO BID clonidine HCl 0.1 mg tablet 0.1 mg PO TID oxycodone 15 mg tablet 15 mg PO QID PRN (Reason: Pain) Discharge Orders: Discharge Order (Routine); Ordered 06/23/25 Ordered By: Renate Khabir Diet: Regular diet Activity on Discharge: As tolerated Stand Alone Forms: Patient Portal Discharge page, Community Support Print Language: Greek Care Plan Goals: Maintain mood and safe behaviors Take medications as prescribed Continue to pursue sobriety Practice coping skills Continue with outpatient providers and reach out to them as needed Health Concerns: Mood stability and behaviors Sobriety Plan of Treatment: Follow up with your PCP, psychiatric provider and other outpatient providers regarding above concerns Take medications as prescribed Assessment: Patient has insight and demonstrates good judgment in terms of wanting to pursue treatment. Patient has a safety plan that includes presenting to the closest ER or calling 911 if feeling unsafe. Discharge Date/Time: 06/23/25 10:31
== END 2025-06-23 10:31 | disposition home or self-care (01) | DRG 885 ==
LOC: HO.ED 19:41 → HO.PADLT16 06-15 13:44
PROVIDERS: Admitting Provider Registered Nurse; Emergency Provider Emergency Medicine Emergency Medical Services; PCP Internal Medicine; Responsible Provider Registered Nurse; Visit Provider Psychiatry & Neurology Psychiatry
DX: F33.9 Major depressive disorder, recurrent, unspecified (principal); F11.20 Opioid dependence, uncomplicated; R45.851 Suicidal ideations; F43.10 Post-traumatic stress disorder, unspecified; Z79.01 Long term (current) use of anticoagulants; Z79.899 Other long term (current) drug therapy
CPT/HCPCS: 36415; 80053; 80061; 80143; 80179; 80307; 81003; 83036; 85025; 93005; 99285; S9485

== ENCOUNTER → 2025-06-15 07:34 | Outpatient (BNV) | payer OTHER, SELFPAY | PROVIDERS: Admitting Provider Registered Nurse; Emergency Provider Emergency Medicine Emergency Medical Services; PCP Internal Medicine; Responsible Provider Registered Nurse; Visit Provider Internal Medicine Cardiovascular Disease | DX: I25.2 Old myocardial infarction (principal) | CPT/HCPCS: 93010 ==

== ENCOUNTER → 2025-06-15 13:27 | Outpatient (BNV) | payer OTHER, SELFPAY | PROVIDERS: Admitting Provider Registered Nurse; Emergency Provider Emergency Medicine Emergency Medical Services; PCP Internal Medicine; Visit Provider Registered Nurse | DX: F33.2 Major depressive disorder, recurrent severe without psychotic features (principal); F43.11 Post-traumatic stress disorder, acute; F11.90 Opioid use, unspecified, uncomplicated | CPT/HCPCS: 90792; 99231; 99232; 99238 ==

== ENCOUNTER 2025-08-09 12:24 | Inpatient (IN) | payer OTHER, SELFPAY ==
[2025-08-09] VITALS (7 sets, daily range): BP systolic 95–149; BP diastolic 52–86; PULSE 61–83; RESP 16–20; TEMP 35.9–36.7; O2SAT 96–99; BMI 24.4; BMI 20.5
--- NOTE | 2025-08-09 | ECG_ITS ---
Test Reason : CP Blood Pressure : */* mmHG Vent. Rate : 75 BPM Atrial Rate : 75 BPM P-R Int : 186 ms QRS Dur : 92 ms QT Int : 410 ms P-R-T Axes : 82 39 93 degrees QTcB Int : 457 ms Electronic atrial pacemaker with sinus arrhythmia with frequent Premature ventricular complexes Septal infarct (cited on or before 27-Apr-2024) Abnormal ECG When compared with ECG of 15-Jun-2025 07:34, Premature ventricular complexes are now Present Referred By: Generic ED Physician Electronically Signed By: BASSEM ZHOU MD
--- NOTE | ~2025-08-09 | CT_ITS ---
CLINICAL HISTORY: Lower abdominal pain, diarrhea rule out diverticul CT ABDOMEN AND PELVIS WITH CONTRAST Comparison: CT/SR - CT ABDOMEN PELVIS WO IV CON - 04/16/25 15:39 EDT Findings: No basilar consolidation or pleural effusion. Cardiac pacing wire artifact. Cholelithiasis. There is intrahepatic and extrahepatic biliary ductal dilatation. The common bile duct measures 10 mm. A 3 mm calcific density is identified in or adjacent to the distal common bile duct on axial image 224 and coronal image 39. Progressive diffuse pancreatic atrophy. The pancreatic duct appears dilated. No peripancreatic edema or fluid collection. No hydronephrosis or urolithiasis. Small bilateral renal cysts. No adrenal mass. Prominent aortic and arterial calcifications. No AAA. No bowel obstruction, pneumoperitoneum, or pneumatosis. Abnormal wall thickening extends from the hepatic flexure to rectum. Large amount of retained stool is identified in the mid to distal transverse colon with abrupt caliber change at the level of the splenic flexure. There is fluid distention of the ascending colon. The appendix is not identified with certainty. Significant streak artifact from orthopedic hardware limits evaluation of the pelvic structures. Chronic L1 compression fracture. Redemonstration of grade 1 spondylolisthesis at L5-S1. Bilateral total hip arthroplasties. Multiple old right rib fractures. Old bilateral pubic rami fractures. IMPRESSION: 1. Nonspecific colitis from the hepatic flexure to distal sigmoid with concomitant proctitis. No bowel perforation or ischemia. 2. Large amount of stool in the mid to distal transverse colon with an abrupt transition point at the level of the splenic flexure. A mass here cannot be entirely excluded. 3. Cholelithiasis. Questionable choledocholithiasis. Concomitant dilatation of the pancreatic duct for which the possibility of a periampullary tumor or pancreatic head lesion is not entirely excluded. Note is made of progressive pancreatic parenchymal atrophy since the prior study. 4. Additional findings as above. This document has been electronically signed by: Debra Dillon DO on 08/09/2025 18:00:21
--- NOTE | ~2025-08-09 | CT_ITS ---
CLINICAL HISTORY: Unwitnessed fall, rule out skull fracture, bleed CT HEAD WITHOUT CONTRAST Comparison: None Findings: No acute intracranial hemorrhage, extra-axial fluid collection, hydrocephalus or midline shift. Age appropriate generalized parenchymal atrophy. There are periventricular and subcortical white matter hypodensities which are nonspecific but most likely related to microangiopathic gliosis. Intracranial arteriosclerosis. There is no sinus or mastoid fluid. Visualized orbits: No acute abnormalities. There is no acute fracture. IMPRESSION: 1. No acute intracranial hemorrhage or skull fracture. This document has been electronically signed by: Debra Dillon DO on 08/09/2025 17:57:30
--- NOTE | ~2025-08-09 | XR_ITS ---
CLINICAL HISTORY: hypoxia 1 view chest Comparison: CR/SR - XR CHEST 1 VIEW - 07/04/24 14:03 EDT Findings: Cardiac and mediastinal contours are normal. Mild interstitial prominence with scattered peribronchial thickening. No focal consolidation. No effusion. No pneumothorax. No acute osseous finding. Impression: Mild interstitial prominence with scattered peribronchial thickening. No focal consolidation. This document has been electronically signed by: Nigel Moses MD on 08/13/2025 09:37:50
--- NOTE | ~2025-08-09 | CT_ITS ---
CLINICAL HISTORY: Unwitnessed fall, neck pain, rule out fracture CT CERVICAL SPINE WITHOUT CONTRAST Comparison: None provided Findings: Likely degenerative minimal grade 1 spondylolisthesis at C4-5. Remaining vertebral bodies are in satisfactory alignment. Moderately severe disc degenerative changes especially C5-6. Advanced facet degenerative changes left greater than right. There are superior endplate irregularities and mild compression deformity in T2, sagittal image 26 series 2. There are C6-7 block vertebrae. Please see the separate report for the CT head/brain. No cervical fluid collections or masses. No apical pneumothorax. Cardiac pacing wire artifact. Dense carotid and vertebral artery calcifications. IMPRESSION: 1. No acute fracture in the cervical spine. 2. Age-indeterminate mild T2 compression fracture. This document has been electronically signed by: Debra Dillon DO on 08/09/2025 17:57:20
--- NOTE | 2025-08-09 13:00 | MHC.EDTECH ---
patient was incontient of stool x3 nurse and this tech clean and changed patient
[2025-08-09 13:51] LABS: MANUAL DIFF FLAG NO
[2025-08-09 13:52] LABS: Hematocrit 46.4 % (42.0-52.0); Hemoglobin 15.9 g/dl (14.0-18.0); Imm Gran Abs Auto 0.13 X10*3/uL (0.00-0.03); Imm Gran Pct Auto 0.9 % (0.0-0.4); Lymphocytes Absolute Auto 2.4 X10*3/uL (1.2-4.9); Mean Corpuscular HGB Conc 34.3 g/dl (31.0-36.0); Mean Corpuscular Hemoglobin 29.5 pg (27.0-33.0); Mean Corpuscular Volume 86.1 fL (80.0-98.0); NRBC Abs Auto 0.000 X10*3/uL (0.0-0.012); NRBC Pct Auto 0.0 /100WBC (0.0-0.2); Platelet Count 261 X10*3/uL (160-400); Red Blood Count 5.39 X10*6/uL (4.60-5.80); White Blood Count 14.0 X10*3/uL (4.8-10.8)
--- NOTE | 2025-08-09 14:02 | ED.WEAKNESS ---
HPI - Weakness General Chief complaint: Weakness Stated complaint: dizziness, weak, unwit fall, lethargic Time Seen by Provider: 08/09/25 13:52 Source: patient and EMS Mode of arrival: EMS Limitations: no limitations History of Present Illness ED Provider: Dr. Chito Fraser HPI Narrative: 70-year-old male with a past medical history of depression, paroxysmal atrial fibrillation, IV drug use, AICD, disc disease, hypertension, personality disorder, depression, who presents emergency department for evaluation of weakness, abdominal pain, nausea, vomiting, diarrhea and unwitnessed fall at his alf facility. The patient is difficult to get information from but states that he has had nausea vomiting and abdominal pain which started this morning. He also states he has had significant amounts of diarrhea. Points to his lower abdomen when asked to localize his pain and he states that the pain is a constant, 8/10 pressure-like pain. Patient does appear to be in distress in his moaning secondary to his pain. The patient was covered and diarrheal stool. The patient has was admitted from 01/16/2024 until 01/23/2024 [facility] [place] for intractable abdominal pain and diarrhea secondary to C diff colitis. Related Data Home Medications ?Medication ?Instructions ?Recorded ?Confirmed methadone 5 mg tablet 10 mg PO Q8H PRN Pain (Scale Score 10/21/22 06/14/25 4-6) hydroxyzine HCl 25 mg tablet 25 mg PO QID anxiety/insomnia 12/12/23 06/14/25 nifedipine 90 mg tablet,extended 60 mg PO DAILY 07/04/24 06/14/25 release 24 hr (Procardia XL) rivaroxaban 20 mg tablet (Xarelto) 20 mg PO DAILY@1700 07/04/24 06/14/25 duloxetine 30 mg capsule,delayed 30 mg PO BID 03/23/25 06/14/25 release clonidine HCl 0.1 mg tablet 0.1 mg PO TID 06/14/25 06/14/25 oxycodone 15 mg tablet 15 mg PO QID PRN Pain 06/14/25 06/14/25 Previous Rx's ?Medication ?Instructions ?Recorded lisinopril 5 mg tablet 1 tab PO DAILY #30 tabs 10/28/22 trazodone 50 mg tablet 1 tab PO BEDTIME #30 tabs 10/28/22 metoprolol tartrate 50 mg tablet 50 mg PO BID #60 tabs 04/14/23 Allergies Allergy/AdvReac Type Severity Reaction Status Date / Time ergotamine (ERGOTAMINE) AdvReac Severe NAUSEA Verified 08/09/25 13:02 Review of Systems Review of Systems: Yes all other systems are reviewed and are negative FOR[facility]LY [facility] Past Medical History Medical History MDD (major depressive disorder), recurrent episode, moderate Paroxysmal atrial fibrillation History of intravenous drug abuse Presence of combination internal cardiac defibrillator (ICD) and pacemaker Ventricular arrhythmia Opioid dependence Lumbar disc herniation Thoracic disc herniation Cervical disc herniation Opioid abuse Pacemaker HTN (hypertension) Surgical History History of spinal fusion History of hip replacement Family History Family History Mother HTN (hypertension) CHF (congestive heart failure) Social History Social History Household Members: None Household Members Other:: lives with other roommates Housing: Assisted Living Facility Housing Other:: rents an rm in house Do you presently have visiting nurse or other home services: Yes (Nurse at [facility] distributes meds) Alcohol intake: former Comment: 5 minute safety checks Patient Tobacco Use Status: Never used Tobacco e-Cigarette/Vaping Use: Never Used Second Hand Smoke Exposure: No Substance Use Type: Marijuana Advance Directives: Yes Advance Directives on File: Yes Advance Directives Date on File: 04/29/24 Do you have a plan to hurt others: No Plan service: No Current occupational status: retired and disabled Sexual orientation: Straight/Heterosexual Physical Exam Vital Signs: Vital Signs: Last Vital Signs Temp 98.1 F 08/09/25 17:25 Pulse 77 08/09/25 17:52 Resp 18 08/09/25 14:07 BP 122/78 08/09/25 17:52 Pulse Ox 99 08/09/25 17:52 O2 Del Method Room Air 08/09/25 17:52 BMI result Body Mass Index 24.4 Vital signs were no Exam: General: Awake, alert , appears to be in distress secondary to his abdominal pain, he is moaning and requesting pain medicine Head: Normocephalic, atraumatic EENT: PERRL, sclera and conjunctiva are normal, mouth with no erythema or exudates Neck: Supple, no adenopathy Lung: breath sounds symmetric, no wheezing, no rales and no rhonchi Chest: symmetric movement, nontender Heart: regular rate and rhythm, normal S1, S2 no murmurs or rubs Abdomen: soft, mild diffuse tenderness, moderate right lower and left lower quadrant tenderness, normoactive bowel sounds, nondistended, normal bowel sounds Extremities: no deformities, moves all extremities symmetrically, no edema Neuro: Awake, alert, oriented, normal speech, cranial nerves 2-12 intact, moves all extremities symmetrically Medications Administered Discontinued Medications Generic Name Dose Route Start Last Admin Trade Name Freq PRN Reason Stop Dose Admin Fidaxomicin 200 mg 08/09/25 16:25 08/09/25 17:44 Fidaxomicin 200 Mg Tablet PO 08/09/25 16:26 200 mg ONCE ONE Administration Hydromorphone HCl 1 mg 08/09/25 16:05 08/09/25 16:19 Hydromorphone Hcl 1 Mg/Ml Syringe IVPUSH 08/09/25 16:06 1 mg ONCE STA Administration Protocol Hydromorphone HCl 1 mg 08/09/25 17:48 08/09/25 17:52 Hydromorphone Hcl 1 Mg/Ml Syringe IVPUSH 08/09/25 17:49 1 mg ONCE STA Administration Protocol Sodium Chloride 1,000 mls @ 999 mls/hr 08/09/25 14:00 08/09/25 14:33 Ns IV 08/09/25 15:00 Not Given .Q1H1M STA Sodium Chloride 2,449.41 mls @ 2,449.41 mls/hr 08/09/25 14:17 08/09/25 16:18 Ns 30 ml/kg infuse over 1 hr (2449.41 ml) 08/09/25 15:16 Infused IV Infusion .Q1H STA Lactated Ringer's 1,000 mls @ 999 mls/hr 08/09/25 16:21 08/09/25 17:45 Lr IV 08/09/25 17:21 999 mls/hr .Q1H1M STA Administration Iohexol 100 ml 08/09/25 16:48 08/09/25 16:49 Iohexol 350 Mg/Ml 100 Ml Infus..Btl IV 08/09/25 16:49 85 ml ONCE ONE Administration Morphine Sulfate 4 mg 08/09/25 14:00 08/09/25 14:07 Morphine Sulfate 4 Mg/Ml Cartridge IVPUSH 08/09/25 14:01 4 mg ONCE STA Administration Protocol Ondansetron HCl 4 mg 08/09/25 14:00 08/09/25 14:07 Ondansetron Hcl 4 Mg/2 Ml Vial IVPUSH 08/09/25 14:01 4 mg ONCE ONE Administration Medical Decision Making Medical Decision Making MDM Narrative: 70-year-old male with a past medical history of depression, paroxysmal atrial fibrillation, IV drug use, AICD, disc disease, hypertension, personality disorder, depression, who presents emergency department for evaluation of weakness, abdominal pain, nausea, vomiting, diarrhea and unwitnessed fall at his alf facility. The patient is difficult to get information from but states that he has had nausea vomiting and abdominal pain which started this morning. He also states he has had significant amounts of diarrhea. Points to his lower abdomen when asked to localize his pain and he states that the pain is a constant, 8/10 pressure-like pain. Patient does appear to be in distress in his moaning secondary to his pain. The patient was covered and diarrheal stool. Vital signs were normal. Abdominal exam revealed mild diffuse tenderness with moderate right lower quadrant and left lower quadrant tenderness. Differential diagnosis: ?Includes but is not limited to closed head injury, skull fracture, intracranial bleed, neck sprain, neck fracture, diverticulitis, C diff colitis, anemia, electrolyte abnormalities Course: 14:[address] head, neck without contrast and CT abdomen pelvis with IV contrast. Laboratory evaluation, C diff and GI panel were also ordered. Patient's pain was treated with morphine 4 mg IV nausea was treated with Zofran 4 mg IV and I also ordered 1 L of normal saline IV. 17:05 The patient had a large foul-smelling watery stool which had a reddish color to it. The stool was occult positive for blood. Therefore I ordered repeat H&H and type and screen. My independent interpretation patient's laboratory evaluation is as follows: WBC elevated 14,000. H&H was normal 15.9 and 46.4 with a normal platelet count of 261,000. Patient did receive 2 L of normal saline and repeat H&H proximally 3 hours after the 1st H&H was only minimally decreased at 14.9 and 43.4 which is reassuring. I did order type and screen on the patient given his occult positive diarrhea. Bicarb was low at 18, chloride elevated 113. Lactic acid was elevated 5.4 repeat was elevated 4.0-this is most likely secondary to metabolic acidosis caused by severe diarrhea and not sepsis. Despite the patient's C diff test being negative I am concerned that he has C difficile colitis therefore I ordered fidaxomicin 200 mg orally for suspected C diff. CT scan of the abdomen pelvis is pending. 18:45 CT head and cervical spine revealed no acute abnormalities. CT of the abdomen pelvis with IV contrast is consistent with colitis from the hepatic flexure to distal sigmoid with concomitant proctitis. I did discuss admission with the covering hospitalist, and the patient is accepted onto the hospitalist service for further treatment. After this discussion, I did order Zosyn 4.5 g IV for nonspecific colitis and proctitis. Differential Diagnosis Differential Diagnoses: The differential diagnosis associated with the presentation includes (See above) Admission/Observation Consideration of admission/observation: Escalation of care including admission/observation considered (Yes) Consult Healthcare Provider Management of the patient was discussed with: Hospitalist Lab Data MDM Lab Attestation statement: I reviewed the patient's lab results. 08/09/25 16:29 08/09/25 15:11 Labs: Lab Results 08/09/25 08/09/25 08/09/25 Range/Units 13:42 14:27 15:11 WBC 14.0 H (4.8-10.8) X10*3/uL RBC 5.39 (4.60-5.80) X10*6/uL Hgb 15.9 (14.0-18.0) g/dl Hct 46.4 (42.0-52.0) % MCV 86.1 (80.0-98.0) fL MCH 29.5 (27.0-33.0) pg MCHC 34.3 (31.0-36.0) g/dl RDW 12.8 (11.0-16.0) % Plt Count 261 D (160-400) X10*3/uL MPV 10.6 (9.4-12.4) fL Immature Gran % (Auto) 0.9 H (0.0-0.4) % Neut % (Auto) 76.2 H (45-73) % Lymph % (Auto) 17.2 L (20-40) % [place] % (Auto) 2.7 (2-11) % Eos % (Auto) 2.6 (0-4) % Baso % (Auto) 0.4 (0-2) % Lymph # (Auto) 2.4 (1.2-4.9) X10*3/uL [place] # (Auto) 0.4 (0.1-1.2) X10*3/uL Eos # (Auto) 0.4 (0.0-0.4) X10*3/uL Baso # (Auto) 0.1 (0.0-0.2) X10*3/uL Abs Immat Gran (auto) 0.13 H (0.00-0.03) X10*3/uL Absolute Neuts (auto) 10.6 H (2.0-8.3) x10*3/uL Absolute Nucleated RBC 0.000 (0.0-0.012) X10*3/uL Nucleated RBC % (auto) 0.0 (0.0-0.2) /100WBC Hold Purple Top SEE NOTE Sodium 141 (135-145) mmol/L Potassium 3.7 (3.3-5.1) mmol/L Chloride 113 H (96-108) mmol/L Carbon Dioxide 18 L (22-29) mmol/L Anion Gap 14 (12-20) BUN 19 H (9-16) mg/dL Creatinine 1.16 (0.5-1.4) mg/dL Estim Creat Clear Calc 64.1 Estimated GFR > 60 Random Glucose 144 H (60-115) mg/dL Fasting Glucose Cancelled Lactic Acid 5.4 H* (0.5-2.0) mmol/L Lactic Acid F/U @ 2Hr (0.5-2.0) mmol/L Calcium 8.6 D (8.4-10.2) mg/dL Total Bilirubin 0.7 (0.0-1.0) mg/dL AST 61 H (5-37) U/L ALT 27 (0-40) U/L Alkaline Phosphatase 94 (39-117) U/L Troponin I High Sens 4.8 (<3.5-35.0) ng/L Total Protein 7.0 (6.5-8.0) g/dL Albumin 3.8 (3.5-5.0) g/dL Lipase 25 (8-78) U/L Stool Occult Blood (NEGATIVE) C. difficile Tox B Gene NEGATIVE (Negative) Blood Type Antibody Screen 08/09/25 08/09/25 08/09/25 Range/Units 16:29 16:31 16:39 WBC (4.8-10.8) X10*3/uL RBC (4.60-5.80) X10*6/uL Hgb 14.9 (14.0-18.0) g/dl Hct 43.4 (42.0-52.0) % MCV (80.0-98.0) fL MCH (27.0-33.0) pg MCHC (31.0-36.0) g/dl RDW (11.0-16.0) % Plt Count (160-400) X10*3/uL MPV (9.4-12.4) fL Immature Gran % (Auto) (0.0-0.4) % Neut % (Auto) (45-73) % Lymph % (Auto) (20-40) % [place] % (Auto) (2-11) % Eos % (Auto) (0-4) % Baso % (Auto) (0-2) % Lymph # (Auto) (1.2-4.9) X10*3/uL [place] # (Auto) (0.1-1.2) X10*3/uL Eos # (Auto) (0.0-0.4) X10*3/uL Baso # (Auto) (0.0-0.2) X10*3/uL Abs Immat Gran (auto) (0.00-0.03) X10*3/uL Absolute Neuts (auto) (2.0-8.3) x10*3/uL Absolute Nucleated RBC (0.0-0.012) X10*3/uL Nucleated RBC % (auto) (0.0-0.2) /100WBC Hold Purple Top Sodium (135-145) mmol/L Potassium (3.3-5.1) mmol/L Chloride (96-108) mmol/L Carbon Dioxide (22-29) mmol/L Anion Gap (12-20) BUN (9-16) mg/dL Creatinine (0.5-1.4) mg/dL Estim Creat Clear Calc Estimated GFR Random Glucose (60-115) mg/dL Fasting Glucose Lactic Acid (0.5-2.0) mmol/L Lactic Acid F/U @ 2Hr 4.0 H* (0.5-2.0) mmol/L Calcium (8.4-10.2) mg/dL Total Bilirubin (0.0-1.0) mg/dL AST (5-37) U/L ALT (0-40) U/L Alkaline Phosphatase (39-117) U/L Troponin I High Sens (<3.5-35.0) ng/L Total Protein (6.5-8.0) g/dL Albumin (3.5-5.0) g/dL Lipase (8-78) U/L Stool Occult Blood POSITIVE (NEGATIVE) C. difficile Tox B Gene (Negative) Blood Type O Negative Antibody Screen NEGATIVE Independent Interpretation I performed an independent interpretation of an: EKG Interpretation: My independent interpretation patient's 12 EKG done on 08/09/2025 at 18:07 hours is as follows: Normal sinus rhythm rate of 89, normal WA interval, QRS duration QTC interval, no ST segment elevation, no ST segment depression, no PACs, no PVCs, no T-wave abnormalities. Radiology Impression Discussion of test interpretation with radiology: I have reviewed the radiologist's reading. Radiologist Impression: CT ABDOMEN AND PELVIS WITH CONTRAST Comparison: CT/SR - CT ABDOMEN PELVIS WO IV CON - 04/16/25 15:39 EDT Findings: No basilar consolidation or pleural effusion. Cardiac pacing wire artifact. Cholelithiasis. There is intrahepatic and extrahepatic biliary ductal dilatation. The common bile duct measures 10 mm. A 3 mm calcific density is identified in or adjacent to the distal common bile duct on axial image 224 and coronal image 39. Progressive diffuse pancreatic atrophy. The pancreatic duct appears dilated. No peripancreatic edema or fluid collection. No hydronephrosis or urolithiasis. Small bilateral renal cysts. No adrenal mass. Prominent aortic and arterial calcifications. No AAA. No bowel obstruction, pneumoperitoneum, or pneumatosis. Abnormal wall thickening extends from the hepatic flexure to rectum. Large amount of retained stool is identified in the mid to distal transverse colon with abrupt caliber change at the level of the splenic flexure. There is fluid distention of the ascending colon. The appendix is not identified with certainty. Significant streak artifact from orthopedic hardware limits evaluation of the pelvic structures. Chronic L1 compression fracture. Redemonstration of grade 1 spondylolisthesis at L5-S1. Bilateral total hip arthroplasties. Multiple old right rib fractures. Old bilateral pubic rami fractures. IMPRESSION: 1. Nonspecific colitis from the hepatic flexure to distal sigmoid with concomitant proctitis. No bowel perforation or ischemia. 2. Large amount of stool in the mid to distal transverse colon with an abrupt transition point at the level of the splenic flexure. A mass here cannot be entirely excluded. 3. Cholelithiasis. Questionable choledocholithiasis. Concomitant dilatation of the pancreatic duct for which the possibility of a periampullary tumor or pancreatic head lesion is not entirely excluded. Note is made of progressive pancreatic parenchymal atrophy since the prior study. 4. Additional findings as above. This document has been electronically signed by: Debra Dillon DO on 08/09/2025 18:00:21 CT HEAD WITHOUT CONTRAST IMPRESSION: 1. No acute intracranial hemorrhage or skull fracture. This document has been electronically signed by: Debra Dillon DO on 08/09/2025 17:57:30 CT CERVICAL SPINE WITHOUT CONTRAST IMPRESSION: 1. No acute fracture in the cervical spine. 2. Age-indeterminate mild T2 compression fracture. This document has been electronically signed by: Debra Dillon DO on 08/09/2025 17:57:20 External Record Review External record reviewed: Inpatient record Chronic Conditions Patient?s care impacted by: Hypertension Critical Care Time Critical Care Time Critical Care Time: Yes Total Critical Care Time: 75 Attestation: Critical Care: The patient was critically ill with a high probability of imminent or life threatening deterioration. I spent greater than 30 minutes of discontinuous time evaluating the patient,delivering critical care at the bedside, discussing and evaluating pertinent data with consultants. Critical care time does not include time spent performing separately billable procedures or teaching. Total time spent performing critical care was 75 minutes. Discharge Plan Discharge Patient Disposition: Admitted As Inpatient Print Language: Mohawk
[2025-08-09 14:16] LABS: Troponin-I High Sensitivity 4.8 ng/L (<3.5-35.0)
[2025-08-09] MEDS: 0.9 % Sodium Chloride 2,449.41 ML 2449.41 ML IV (14:31)
--- NOTE | 2025-08-09 15:00 | MHC.EDTECH ---
patient was incontinent of stool 4 time nurse aware. changed and clean patient.
--- NOTE | 2025-08-09 15:15 | PC.NURSE ---
Care of Pt assumed at approx. 1330. Report received that Pt comes to ED via EMS from [facility] s/p fall--Pt denies fall. Pt presents with severe agitation. He c/o constant abd pain and demands pain medications. He arrives with a large amount of soft/loose stool in his pants. Stool is foul in smell in of large amount. Pt cleaned, given hospital clothing and new linens. Pt medicated per DEC. Cdiff precautions in place given Pts Hx. Pt is resting at this time. Blood work pending.
--- NOTE | 2025-08-09 15:38 | MHC.CM.PN ---
Met with patient and brother Osvaldo in regards to discharge planning. Patient lives alone, ambulates independently and had no services prior to coming to the hospital. PT and OT evals completed. No skills indicated. PCP verified. Copy of HCP obtained from [facility]. IMM explained and signed. Patient feels he can safely return home. Osvaldo will transport patient when medically stable. Continue to monitor for d/c needs.
[2025-08-09 15:50] LABS: Reflex Lactate? Lactic Acid Added
[2025-08-09 16:05] LABS: CDiff Gene PCR NEGATIVE (Negative)
[2025-08-09 16:28] LABS: Alanine Aminotransferase 27 U/L (0-40); Albumin Level 3.8 g/dL (3.5-5.0); Alkaline Phosphatase 94 U/L (39-117); Anion Gap 14 (12-20); Aspartate Amino Transferase 61 U/L (5-37); Blood Urea Nitrogen 19 mg/dL (9-16); Calcium 8.6 mg/dL (8.4-10.2); Carbon Dioxide 18 mmol/L (22-29); Chloride 113 mmol/L (96-108); Creatinine Clr Calc Pharmacy 64.1; Estimated Glomerular Filt Rate > 60; Potassium 3.7 mmol/L (3.3-5.1); Sodium 141 mmol/L (135-145); Total Protein 7.0 g/dL (6.5-8.0)
[2025-08-09 16:39] LABS: OBS Int Ctl Valid YES; OBS1 POSITIVE (NEGATIVE)
[2025-08-09] MEDS: iohexoL 350 MG/ML 100 ML INFUS..BTL IV (16:49)
[2025-08-09 16:50] LABS: ~Lactic Acid-LAB USE ONLY 4.0 mmol/L (0.5-2.0)
[2025-08-09 16:53] LABS: Hematocrit 43.4 % (42.0-52.0); Hemoglobin 14.9 g/dl (14.0-18.0)
[2025-08-09 17:22] LABS: Lipase 25 U/L (8-78)
[2025-08-09] MEDS: Lactated Ringers 1,000 ML 999 ML IV (17:45)
[2025-08-09 18:32] LABS: Reflex Lactate? 2 Y
--- NOTE | 2025-08-09 18:44 | HO.NURTONUR ---
70 yr male admitted for colitis and cholelithiasis. Pt comes to ED via EMS from [facility] with c/o abd pain and diarrhea. A&Ox3 VSS, afebrile. Pt with frequent, copious amounts of diarrhea; Pt unable to control his bowels. Stool (+) occult blood; GI panel pending, (-) C. 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 Bilat 20g IV access to forearms. C. Diff precautions remain in place as Pt has a significant C.Diff Hx. Pt to be admitted.
--- NOTE | 2025-08-09 18:45 | MHC.EDTECH ---
patient was incontinent of stool x5 clean and changed patient nurse aware
[2025-08-09] MEDS: Lactated Ringers 1,000 ML 125 ML IV (19:23)
[2025-08-09 19:30] LABS: ~Lactic Acid-LAB USE ONLY 4.9 mmol/L (0.5-2.0)
--- NOTE | 2025-08-09 19:32 | PHA.MEDREC ---
Addendum entered by Eleno Sadler [email or web address] 08/09/25 19:52: Med list reviewed Original Note: Pharmacy Consult ? Medication Reconciliation Pharmacy has completed the medication reconciliation. Patient is from [facility] [phone]. med list found in patient chart is dated from 05/23/24. There are to many discrepancy with last years med list and most recant claims. Utilized claims to confirm med list.
--- NOTE | 2025-08-09 20:30 | PM.IMHP ---
History of Present Illness Date of Service: 08/09/25 Attending physician on admission: Keagan Benton Chief Complaint: abd pain, N/V/D Patient is a 70-year-old male with a past medical history significant for depression, paroxysmal AFib on Xarelto, IVDU, AICD, DDD, HTN and history of C diff with admission in January 2024, who presented to the ED due to weakness, lower abdominal pain, nausea, vomiting and diarrhea starting this morning. Patient had an unwitnessed fall the custodial facility. And he arrived to the ED use including of 8 abdominal pain and was covered and liquid stool. The stool is malodorous and appears reddish. He has diffuse tenderness in the lower abdomen. Review of Systems Constitutional: Constitutional: Denies chills, Reports fatigue, Denies fever(s) and Denies headache(s) Eyes: Eyes: Denies change in vision ENT: Denies headache(s), Denies nasal congestion, Denies nasal discharge and Denies sore throat Cardiovascular: Cardiovascular: Denies chest pain, Denies rapid heart rate, Denies leg edema, Denies lightheadedness and Denies dyspnea Respiratory: Respiratory: Denies chest congestion, Denies cough, Denies dyspnea and Denies wheezing Gastrointestinal: Gastrointestinal: Reports as per HPI Genitourinary: Genitourinary: Denies urinary urgency Musculoskeletal: Musculoskeletal: Denies myalgias Integumentary/Breasts: Skin/Breast: Denies rash Neurologic: Denies confusion and Denies headache(s) Psychiatric: Psychiatric: Denies confusion Endocrine: Endocrine: Reports fatigue Hematologic/Lymphatic: Hematologic/Lymphatic: Denies easy bleeding and Denies easy bruising Allergic/Immunologic: Allergic/Immunologic: Denies wheezing [facility] Medical History MDD (major depressive disorder), recurrent episode, moderate Paroxysmal atrial fibrillation History of intravenous drug abuse Presence of combination internal cardiac defibrillator (ICD) and pacemaker Ventricular arrhythmia Opioid dependence Lumbar disc herniation Thoracic disc herniation Cervical disc herniation Opioid abuse Pacemaker HTN (hypertension) Family History Mother HTN (hypertension) CHF (congestive heart failure) Surgical History History of spinal fusion History of hip replacement Social History Household Members: Other Household Members Other:: lives with other roommates Housing: Other Housing Other:: bharat Do you presently have visiting nurse or other home services: No Alcohol intake: former Comment: 5 minute safety checks Patient Tobacco Use Status: Never used Tobacco e-Cigarette/Vaping Use: Never Used Second Hand Smoke Exposure: No Substance Use Type: Marijuana Have you been hit, kicked, punched, or otherwise hurt by someone within the past year? If so, by whom?: No Do you feel safe in your current relationship?: No Current Relationship Is there a partner from a previous relationship who is making you feel unsafe now?: No Advance Directives: Yes Advance Directives on File: Yes Advance Directives Date on File: 04/29/24 Do you have a plan to hurt others: No Plan Recently lost weight without trying: No How much weight loss: Not applicable Eating poorly because of decreased appetite: No Nutrition screen score: 0 Nutrition Risks: No Nutritional Risk Poor oral hygiene: No service: No Current occupational status: retired and disabled Sexual orientation: Straight/Heterosexual Meds Allergies Allergy/AdvReac Type Severity Reaction Status Date / Time ergotamine (ERGOTAMINE) AdvReac Severe NAUSEA Verified 08/09/25 13:02 Active Medications: Current Medications Lactated Ringer's (Lr) 1,000 mls @ 125 mls/hr IV .Q8H STA Stop: 08/10/25 02:52 Last Admin: 08/09/25 19:23 Dose: 125 mls/hr Lactated Ringer's (Lr) 1,000 mls @ 80 mls/hr IVCONT .[id number] [place] Metronidazole (Flagyl) 500 mg in 100 mls @ 100 mls/hr IV Q8H [place] Piperacillin Sod/Tazobactam (Sod 3.375 gm/ Sodium Chloride) 50 mls @ 100 mls/hr IV Q6H [place] Home Medications ?Medication ?Instructions ?Recorded ?Confirmed ?Last Taken ?Type hydroxyzine HCl 25 mg tablet 25 mg PO QID anxiety/insomnia 12/12/23 08/09/25 Unknown History rivaroxaban 20 mg tablet (Xarelto) 20 mg PO DAILY@1700 07/04/24 08/09/25 06/13/25 History duloxetine 30 mg capsule,delayed 30 mg PO BID 03/23/25 08/09/25 06/14/25 History release acetaminophen 650 mg 650 mg PO Q6H PRN Fever Or Pain 08/09/25 08/09/25 Unknown History tablet,extended release clonidine HCl 0.1 mg tablet 0.1 mg PO TID 08/09/25 08/09/25 Unknown History docusate sodium 100 mg capsule 100 mg PO BID PRN Constipation 08/09/25 08/09/25 Unknown History (Colace) methadone 10 mg tablet 10 mg PO BID 08/09/25 08/09/25 Unknown History nifedipine 60 mg tablet,extended 60 mg PO DAILY 08/09/25 08/09/25 Unknown History release 24 hr oxycodone 15 mg tablet 15 mg PO QID PRN Pain 08/09/25 08/09/25 Unknown History polyethylene glycol 3350 17 17 g PO DAILY PRN Constipation 08/09/25 08/09/25 Unknown History gram/dose oral powder (Miralax) sennosides 8.6 mg tablet (senna) 17.2 mg PO BID PRN Constipation 08/09/25 08/09/25 Unknown History Physical Exam Vital Signs and Narrative: Vital Signs: Last Vital Signs Temp 97.6 F 08/09/25 19:09 Pulse 83 08/09/25 19:09 Resp 20 08/09/25 19:09 BP 149/86 H 08/09/25 19:09 Pulse Ox 96 08/09/25 19:09 O2 Del Method Room Air 08/09/25 19:09 BMI result Body Mass Index 24.4 General: AOx3, no acute distress Resp: CTA bilaterally CVS: S1, S2, RRR GI: +BS, generalized tenderness mostly in lower abd RLQ and LLQ, no distention Skin: Warm, dry Neuro: Cranial nerves II-XII grossly intact bilaterally. Motor grossly intact bilaterally Extremities: No pitting edema Psych: Appropriate affect Const: General: No confusion Orientation/consciousness: No confusion Neuro: General: No confusion Results Labs 08/09/25 16:29 08/09/25 15:11 Labs: Laboratory Results - last 24 hr 08/09/25 08/09/25 08/09/25 13:42 14:27 15:11 MCV 86.1 MCH 29.5 MCHC 34.3 RDW 12.8 Plt Count 261 D MPV 10.6 Immature Gran % (Auto) 0.9 H Neut % (Auto) 76.2 H Lymph % (Auto) 17.2 L [place] % (Auto) 2.7 Eos % (Auto) 2.6 Baso % (Auto) 0.4 Lymph # (Auto) 2.4 [place] # (Auto) 0.4 Eos # (Auto) 0.4 Baso # (Auto) 0.1 Abs Immat Gran (auto) 0.13 H Absolute Neuts (auto) 10.6 H Absolute Nucleated RBC 0.000 Nucleated RBC % (auto) 0.0 Hold Purple Top SEE NOTE Anion Gap 14 Estim Creat Clear Calc 64.1 Estimated GFR > 60 Random Glucose 144 H Fasting Glucose Cancelled Lactic Acid 5.4 H* Lactic Acid F/U @ 2Hr Lactic Acid F/U @ 4Hr Calcium 8.6 D Total Bilirubin 0.7 AST 61 H ALT 27 Alkaline Phosphatase 94 Troponin I High Sens 4.8 Total Protein 7.0 Albumin 3.8 Lipase 25 Stool Occult Blood C. difficile Tox B Gene NEGATIVE Blood Type Antibody Screen 08/09/25 08/09/25 08/09/25 16:29 16:31 16:39 MCV MCH MCHC RDW Plt Count MPV Immature Gran % (Auto) Neut % (Auto) Lymph % (Auto) [place] % (Auto) Eos % (Auto) Baso % (Auto) Lymph # (Auto) [place] # (Auto) Eos # (Auto) Baso # (Auto) Abs Immat Gran (auto) Absolute Neuts (auto) Absolute Nucleated RBC Nucleated RBC % (auto) Hold Purple Top Anion Gap Estim Creat Clear Calc Estimated GFR Random Glucose Fasting Glucose Lactic Acid Lactic Acid F/U @ 2Hr 4.0 H* Lactic Acid F/U @ 4Hr Calcium Total Bilirubin AST ALT Alkaline Phosphatase Troponin I High Sens Total Protein Albumin Lipase Stool Occult Blood POSITIVE C. difficile Tox B Gene Blood Type O Negative Antibody Screen NEGATIVE 08/09/25 19:01 MCV MCH MCHC RDW Plt Count MPV Immature Gran % (Auto) Neut % (Auto) Lymph % (Auto) [place] % (Auto) Eos % (Auto) Baso % (Auto) Lymph # (Auto) [place] # (Auto) Eos # (Auto) Baso # (Auto) Abs Immat Gran (auto) Absolute Neuts (auto) Absolute Nucleated RBC Nucleated RBC % (auto) Hold Purple Top Anion Gap Estim Creat Clear Calc Estimated GFR Random Glucose Fasting Glucose Lactic Acid Lactic Acid F/U @ 2Hr Lactic Acid F/U @ 4Hr 4.9 H* Calcium Total Bilirubin AST ALT Alkaline Phosphatase Troponin I High Sens Total Protein Albumin Lipase Stool Occult Blood C. difficile Tox B Gene Blood Type Antibody Screen Assessment and Plan (1) SIRS (systemic inflammatory response syndrome): Status: Acute (2) Acute proctitis: Status: Acute (3) Acute colitis: Status: Acute (4) Occult blood positive stool: Status: Acute (5) Acute lactic acidosis: Status: Acute (6) Hyperchloremic metabolic acidosis: Status: Acute (7) Choledocholithiasis: Status: Acute Plan Patient is a 70-year-old male with a past medical history significant for depression, paroxysmal AFib on Xarelto, IVDU, AICD, DDD, HTN and history of C diff with admission in January 2024, who presented to the ED due to weakness, lower abdominal pain, nausea, vomiting and diarrhea starting this morning. Initially patient was treated for C diff due to previous history however C diff test negative. GI panel pending. Abdominopelvic CT with nonspecific colitis and findings concerning for possible choledocholithiasis with concomitant dilatation of the pancreatic duct SIRS +, acute procitis and colitis on CT and +FOBT - IVF - clear liquid diet - empiric Zosyn and Flagyl - GI panel pending - GI consult - follow CBC and electrolytes Acute lactic acidosis in the setting of SIRS and dehydration - IV fluids - trend lactic acid Hyperchloremic metabolic acidosis due to dehydration - IV fluids - follow electrolytes ? Choledocholithiasis on CT - LFTs normal - GI consult - follow CMP abnormal A/P CT - concern for abrupt transition point at the level of the splenic flexure, mass can not be entirely excluded - concomitant dilatation of the pancreatic duct for which the possibility of a periampullary tumor or pancreatic head lesion is not entirely excluded - AFP, CEA, CA 19-9 - oncology consult Fall, likely due to weakness from dehydration - PT eval Paroxysmal AFib - hold Xarelto due to + GI bleed IVDU - on methadone HTN - continue home therapies Med rec pending Full code VTE prophylaxis: Pneumoboots Patient with SIRS +, colitis and abnormal A/P CT requiring admission for at least 2 midnights stay for IVF, abx, and further evaluation. Quality Stroke Does the patient have a stroke diagnosis?: No VTE Prior VTE?: No VTE Risk Level:: Medical - moderate - high VTE Device Contraindication: N/A - Device Ordered VTE Drug Contraindication: Treatment Not Indicated
[2025-08-09] MEDS: metroNIDAZOLE/NS 500 MG/100 ML PIGGYBACK 100 MG IV (21:56)
[2025-08-09] MEDS: Flu Vacc TS2025-26(6mo up)/PF 0.5 ML SYRINGE IM (22:02)
[2025-08-09] MEDS: oxyCODONE HCl Immed Release 5 MG TABLET PO (22:12)
--- NOTE | 2025-08-09 22:57 | HO.SKINPHOTO ---
Location: Left foot; toes Category: Stage:
[2025-08-09] MEDS: 0.9 % Sodium Chloride Flush 3 ML SYRINGE IVFLUSH (23:35)
[2025-08-09 23:43] LABS: Carcinoembryonic Antigen 20.30 ng/mL
[2025-08-10] VITALS (7 sets, daily range): BP systolic 106–160; BP diastolic 55–71; PULSE 78–104; RESP 16–18; TEMP 36.2–38.5; O2SAT 94–96
--- NOTE | 2025-08-10 00:42 | PM.EVENT ---
Event Note Date of Service: 08/10/25 Event Note: pt's lactic acid went from 5.4 to 4.0 to 4.9, now 6.6. blood pressures have been stable. pt resting comfortably. has already recived 30cc/kg fluid bolus and 2 additional liters. will give 200g IV thiamine. Time Spent With Patient Time: Total time managing care of this patient today ____ minutes.
--- NOTE | 2025-08-10 00:48 | PM.SEPBOLA4 ---
Sepsis Bolus Exclusion Sepsis Bolus Exclusion CHF/Renal Failure Date of Occurrence: 08/10/25 Time of Occurrence:: 00:49 This patient met severe sepsis criteria due to the following condition(s):: Lactate>=4mmol/L In my clinical judgement the administration of 30 ml/kg of crystalloid would be detrimental to this patient due to the patient's following conditions:: Concern for fluid overload Replace the 30 mls/kg with (Zero amount not acceptable and all fluids for severe sepsis must be given at GREATER than 125 mls/hr) *Note: One of the acevedo must be documented Colloids amount given in mls:: 4,449 At a rate of (must be > 125 cchr):: 125
[2025-08-10] MEDS: Thiamine HCL 200 MG in 0.9 % Sodium Chloride 100 ML 204 MG IV (01:14)
[2025-08-10 03:49] LABS: Reflex Lactate? Lactic Acid Added
[2025-08-10 05:12] LABS: Hematocrit 41.9 % (42.0-52.0); Hemoglobin 13.9 g/dl (14.0-18.0); Mean Corpuscular HGB Conc 33.2 g/dl (31.0-36.0); Mean Corpuscular Hemoglobin 28.8 pg (27.0-33.0); Mean Corpuscular Volume 86.9 fL (80.0-98.0); NRBC Abs Auto 0.000 X10*3/uL (0.0-0.012); NRBC Pct Auto 0.0 /100WBC (0.0-0.2); Platelet Count 191 X10*3/uL (160-400); Red Blood Count 4.82 X10*6/uL (4.60-5.80); WBC ABN SCTR FOR CBC 1
[2025-08-10 05:13] LABS: White Blood Count 17.7 X10*3/uL (4.8-10.8)
[2025-08-10] MEDS: metroNIDAZOLE/NS 500 MG/100 ML PIGGYBACK 100 MG IV (05:33)
[2025-08-10 05:46] LABS: ~Lactic Acid-LAB USE ONLY 3.0 mmol/L (0.5-2.0)
[2025-08-10 06:16] LABS: Band Neutrophils Percent 17 % (3-5); Lymphocytes Absolute Manual 1.2 X10*3/uL (1.2-4.9); Lymphocytes Percent Manual 7 % (20-40); Monocytes Absolute Manual 0.4 X10*3/uL (0.1-1.2); Monocytes Percent Manual 2 % (2-11); Neutrophils Absolute Manual 16.1 X10*3/uL (2.0-8.3); Neutrophils Percent Manual 74 % (45-73)
[2025-08-10 06:17] LABS: RBC Morphology NORMAL; Toxic Vacuolation PRESENT
[2025-08-10 06:30] LABS: Alanine Aminotransferase 20 U/L (0-40); Albumin Level 3.0 g/dL (3.5-5.0); Alkaline Phosphatase 61 U/L (39-117); Anion Gap 13 (12-20); Aspartate Amino Transferase 43 U/L (5-37); Blood Urea Nitrogen 22 mg/dL (9-16); Calcium 8.3 mg/dL (8.4-10.2); Carbon Dioxide 19 mmol/L (22-29); Chloride 111 mmol/L (96-108); Creatinine Clr Calc Pharmacy 57.2; Estimated Glomerular Filt Rate > 60; Magnesium 1.7 mg/dL (1.6-2.6); Potassium 4.4 mmol/L (3.3-5.1); Sodium 139 mmol/L (135-145); Total Protein 5.8 g/dL (6.5-8.0)
[2025-08-10 07:06] LABS: Reflex Lactate? 2 Y
--- NOTE | 2025-08-10 08:11 | P.CNHO_ITS ---
Subjective - Subjective Chief complaint: Consult for: Splenic flexure mass. Patient: new to practice Consult date: 08/10/25 Requesting Physician: charles Soliz. Primary Care Provider: Travis Mcarthur. Family Provider: Travis Mcarthur. Medical Summary: DIAGNOSIS: A mass in the splenic flexure. 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 Narrative: Aaron Hernandes is a 70 year old gentleman, with history of C diff with admission in January 2024, who presented to the ED due to weakness, lower abdominal pain, anorexia, nausea, vomiting and diarrhea. He [facility]. He arrived to the ED with 8/10 abdominal pain and was covered with liquid stool. The stool was malodorous and appeared reddish. He had diffuse tenderness in the lower abdomen. CAT scan of the abdomen was obtained which revealed IMPRESSION: 1. Nonspecific colitis from the hepatic flexure to distal sigmoid with concomitant proctitis. No bowel perforation or ischemia. 2. Large amount of stool in the mid to distal transverse colon with an abrupt transition point at the level of the splenic flexure. A mass here cannot be entirely excluded. 3. Cholelithiasis. Questionable choledocholithiasis. Concomitant dilatation of the pancreatic duct for which the possibility of a periampullary tumor or pancreatic head lesion is not entirely excluded. Note is made of progressive pancreatic parenchymal atrophy since the prior study. [facility] Medical History: past medical history significant for depression, paroxysmal AFib on Xarelto, IVDU, AICD, DDD, HTN. MDD (major depressive disorder), recurrent episode, moderate Paroxysmal atrial fibrillation History of intravenous drug abuse Presence of combination internal cardiac defibrillator (ICD) and pacemaker Ventricular arrhythmia Opioid dependence Lumbar disc herniation Thoracic disc herniation Cervical disc herniation Opioid abuse Pacemaker HTN (hypertension). Surgical History: History of spinal fusion History of hip replacement Family History: Mother HTN (hypertension) She had colon cancer. CHF (congestive heart failure) Dad had some sort of malignancy. 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 Currently he resides at [facility]. He is x2. He has no children. Household Members: Other Household Members Other:: lives with other roommates Housing: Other Housing Other:: [facility] Do you presently have visiting nurse or other home services: No He denies smoking. Alcohol intake: former . He quit 45 years ago. Comment: 5 minute safety checks Patient Tobacco Use Status: Never used Tobacco e-Cigarette/Vaping Use: Never Used Second Hand Smoke Exposure: No Substance Use Type: Marijuana. Review of Systems 2 Constitutional: Constitutional: Denies chills, Reports fatigue, Denies fever(s) and Denies headache(s) Eyes: Eyes: Denies change in vision ENT: Denies headache(s), Denies nasal congestion, Denies nasal discharge and Denies sore throat Cardiovascular: Cardiovascular: Denies chest pain, Denies rapid heart rate, Denies leg edema, Denies lightheadedness and Denies dyspnea Respiratory: Respiratory: Denies chest congestion, Denies cough, Denies dyspnea and Denies wheezing Gastrointestinal: Gastrointestinal: Reports as per HPI Genitourinary: Genitourinary: Denies urinary urgency Musculoskeletal: Musculoskeletal: Denies myalgias Integumentary/Breasts: Skin/Breast: Denies rash Neurologic: Denies confusion and Denies headache(s) Psychiatric: Psychiatric: Denies confusion Endocrine: Endocrine: Reports fatigue Hematologic/Lymphatic: Hematologic/Lymphatic: Denies easy bleeding and Denies easy bruising Allergic/Immunologic: Allergic/Immunologic: Denies wheezing Review of Systems - Constitutional Reports system reviewed and no additional complaints, except as documented, Reports fatigue, Reports lack of energy, Reports malaise, Reports poor appetite, Reports weight loss - Eyes Reports system reviewed and no additional complaints, except as documented - ENT Reports system reviewed and no additional complaints, except as documented - Cardiovascular Reports system reviewed and no additional complaints, except as documented - Respiratory Reports no additional respiratory complaints - Gastrointestinal Reports system reviewed and no additional complaints, except as documented - Genitourinary Genitourinary: Reports no additional male genitourinary complaints - Musculoskeletal Reports system reviewed and no additional complaints, except as documented - Integumentary/Breasts Skin/Breast: Reports no additional skin complaints - Neurologic Denies confusion, Denies headache(s) - Psychiatric Reports system reviewed and no additional complaints, except as documented - Endocrine Reports no additional endocrine complaints - Hematologic/Lymphatic Reports system reviewed and no additional complaints, except as documented - Allergic/Immunologic Reports system reviewed and no additional complaints, except as documented Oncology Screenings - ECOG Performance Status ECOG Performance Status: 1 [facility] Medical History: Medical History (Last Reviewed 08/10/25 @ 13:50 by Babs Alfaro PT) Cervical disc herniation History of intravenous drug abuse HTN (hypertension) Lumbar disc herniation MDD (major depressive disorder), recurrent episode, moderate Opioid abuse Opioid dependence Pacemaker Paroxysmal atrial fibrillation Presence of combination internal cardiac defibrillator (ICD) and pacemaker Thoracic disc herniation Ventricular arrhythmia Functional capacity: independent ambulation Patient : No Family History: Family History (Last Reviewed 04/16/25 @ 11:58 by Alexis Whaley MD) Mother HTN (hypertension) CHF (congestive heart failure) Surgical History: Surgical History (Last Reviewed 08/10/25 @ 13:50 by aBbs Alfaro PT) History of hip replacement History of spinal fusion Social History: Social History (Last Reviewed 04/16/25 @ 11:58 by Alexis Whaley MD) Living Situation History: Household Members: Other Household Members Other:: lives with other roommates Housing: Other Housing Other:: [facility] Do you presently have visiting nurse or other home services: No Alcohol History Details: 1. How often do you have a drink containing alcohol?: a. Never AUDIT-C Alcohol total score: 0 Currently Displaying Signs/Symptoms of Alcohol Withdrawal: No Tobacco History: Patient Tobacco Use Status: Never used Tobacco e-Cigarette/Vaping Use: Never Used Second Hand Smoke Exposure: No Substance Use History: Substance Use Type: Marijuana Currently Displaying Signs/Symptoms of Drug Intoxication Withdrawal: No Domestic Abuse History: Have you been hit, kicked, punched, or otherwise hurt by someone within the past year? If so, by whom?: No Do you feel safe in your current relationship?: No Current Relationship Is there a partner from a previous relationship who is making you feel unsafe now?: No Advance Directives: Advance Directives: Yes Advance Directives on File: Yes Advance Directives Date on File: 04/29/24 Suicide Assessment: Suicidal Behavior: History of suicide Current/Past Psychiatric Disorders: Mood disorder Current/Past Psychiatric Disorders: Substance abuse Barber Symptoms: Hopelessness Barber Symptoms: Worthlessness Access to Firearms: No Homicidal Assessment: Do you have a plan to hurt others: No Plan Nutrition Assessment: Recently lost weight without trying: No How much weight loss: Not applicable Eating poorly because of decreased appetite: No Nutrition screen score: 0 Nutrition Risks: No Nutritional Risk Patient : No Poor oral hygiene: No Occupation Assessmet: service: No Current occupational status: retired Current occupational status: disabled Sex/Gender Assessment: Sexual orientation: Straight/Heterosexual Home Medications and Allergies Current Medications: Current Medications Acetaminophen (Acetaminophen 325 Mg Tablet) 975 mg PO Q6H PRN PRN Reason: Pain, Mild 1-3,fever,headache Last Admin: 08/10/25 00:44 Dose: 975 mg Calcium Carbonate (Calcium Carbonate 750 Mg Tab.Chew) 750 mg PO Q4H PRN PRN Reason: Heartburn Clonidine HCl (Clonidine Hcl 0.1 Mg Tablet) 0.1 mg PO TID [facility]; Protocol Docusate Sodium (Docusate Sodium 100 Mg Capsule) 100 mg PO BID PRN PRN Reason: Constipation Duloxetine HCl (Duloxetine Hcl 30 Mg Capsule.Dr) 30 mg PO BID [facility] Hydromorphone HCl (Hydromorphone Hcl 0.5 Mg/0.5 Ml Syringe) 0.5 mg IVPUSH Q4H PRN; Protocol PRN Reason: Pain, Severe (Pain Scale 7-10) Last Admin: 08/09/25 23:53 Dose: 0.5 mg Hydroxyzine HCl (Hydroxyzine Hcl 25 Mg Tablet) 25 mg PO QID [facility] Metronidazole (Flagyl) 500 mg in 100 mls @ 100 mls/hr IV Q8H [facility] Last Infusion: 08/10/25 06:33 Dose: Infused Piperacillin Sod/Tazobactam (Sod 3.375 gm/ Sodium Chloride) 50 mls @ 100 mls/hr IV Q6H [facility] Last Infusion: 08/10/25 01:09 Dose: Infused Lisinopril (Lisinopril 5 Mg Tablet) 5 mg PO DAILY [facility]; Protocol Magnesium Hydroxide (Milk Of Magnesia 30 Ml Oral.Susp) 30 ml PO DAILY PRN PRN Reason: Constipation Melatonin (Melatonin 3 Mg Tablet) 6 mg PO BEDTIME PRN PRN Reason: Insomnia Last Admin: 08/09/25 22:11 Dose: 6 mg Methadone HCl (Methadone Hcl 10 Mg Tablet) 10 mg PO BID [facility] Metoprolol Tartrate (Metoprolol Tartrate 50 Mg Tablet) 50 mg PO BID [facility]; Protocol Nifedipine (Nifedipine Er 60 Mg Tab.Er.24) 60 mg PO DAILY [place]; Protocol Ondansetron HCl (Ondansetron Hcl 4 Mg/2 Ml Vial) 4 mg IVPUSH Q8H PRN PRN Reason: Nausea and Vomiting Last Admin: 08/09/25 22:17 Dose: 4 mg Oxycodone HCl (Oxycodone Hcl Immed Release 5 Mg Tablet) 5 mg PO Q6H PRN PRN Reason: Pain, Moderate(Pain Scale 4-6) Last Admin: 08/09/25 22:12 Dose: 5 mg Sodium Chloride (0.9 % Sodium Chloride Flush 3 Ml Syringe) 3 ml IVFLUSH [facility] Last Admin: 08/09/25 23:35 Dose: 3 ml Trazodone HCl (Trazodone Hcl 50 Mg Tablet) 50 mg PO BEDTIME [facility] Home Medications ?Medication ?Instructions ?Recorded ?Confirmed ?Type hydroxyzine HCl 25 mg tablet 25 mg PO QID anxiety/insomnia 12/12/23 1 History rivaroxaban 20 mg tablet (Xarelto) 20 mg PO DAILY@1700 07/04/24 08/09/25 Hi story duloxetine 30 mg capsule,delayed 30 mg PO BID 03/23/25 08/09/25 History release acetaminophen 650 mg 650 mg PO Q6H PRN Fever Or Pain 08/09/25 08/09/25 History tablet,extended release clonidine HCl 0.1 mg tablet 0.1 mg PO TID 08/09/25 08/09/25 History docusate sodium 100 mg capsule 100 mg PO BID PRN Constipation 08/09/25 08/09/25 History (Colace) methadone 10 mg tablet 10 mg PO BID 08/09/25 08/09/25 History nifedipine 60 mg tablet,extended 60 mg PO DAILY 08/09/25 08/09/25 History release 24 hr oxycodone 15 mg tablet 15 mg PO QID PRN Pain 08/09/25 08/09/25 History polyethylene glycol 3350 17 17 g PO DAILY PRN Constipation 08/09/25 08/09/25 History gram/dose oral powder (Miralax) sennosides 8.6 mg tablet (senna) 17.2 mg PO BID PRN Constipation 08/09/25 08/09/25 History Allergies Allergy/AdvReac Type Severity Reaction Status Date / Time ergotamine (ERGOTAMINE) AdvReac Severe NAUSEA Verified 08/09/25 13:02 Physical Exam Vital signs: Vital Signs Temp 97.7 F 08/10/25 07:44 Pulse 93 08/10/25 07:44 Resp 16 08/10/25 07:44 BP 106/61 08/10/25 07:44 Pulse Ox 94 08/10/25 07:44 O2 Del Method Room Air 08/10/25 07:44 Intake & Output 08/09/25 08/10/25 08/10/25 18:59 06:59 18:59 Intake Total 3449.41 / 5161.41 1712.00 / 5161.41 Output Total 700 / 700 Balance 3449.41 / 4461.41 1012.00 / 4461.41 Urine Output (Average ml/kg/hr) 0.85 Intake: Intake, Oral Amount 260 / 260 Intake, IV Amount 3449.41 / 4901.41 1452.00 / 4901.41 0.9 % Sodium Chloride 2,449.41 2449.41 / 2449.41 ml @ 2449.41 mls/hr IV .Q1H [facility] Rx#:[id number] Lactated Ringers 1,000 ml @ 125 1000 / 2000.00 1000.00 / 2000.00 mls/hr IV .Q8H [facility] Rx#: [id number] Piperacillin Sodium/Tazobactam 50 / 50 3.375 gm In 0.9 % Sodium Chloride 50 ml @ 100 mls/hr IV Q6H [place] Rx#:[id number] Piperacillin Sodium/Tazobactam 100 / 100 4.5 gm In 0.9 % Sodium Chloride 100 ml @ 200 mls/hr IV ONCE ONE Rx#:[id number] Thiamine HCL 200 mg In 0.9 % 102 / 102 Sodium Chloride 100 ml @ 204 mls/hr IV ONCE ONE Rx#: [id number] metroNIDAZOLE/NS 500 mg In 100 200 / 200 ml @ 100 mls/hr IV Q8H [place] Rx#: [id number] Output: Output, Urine Amount 700 / 700 Other: Urine Urinal Urine Color Yellow Last Bowel Movement 08/09/25 Weight 81.647 kg 68.7 kg Weight 68.7 kg - Constitutional Present: mild distress - Routine HEENT Exam Head: Present: normal inspection, normocephalic Eye: Present: normal appearance ENT: Present: mucous membranes moist - Routine Neck Exam Present: supple Hem/Onc Consult Result - Labs CBC & Chem 7: 08/15/25 05:29 08/15/25 05:29 Labs: Short CBC 08/09/25 08/09/25 08/10/25 Range/Units 13:42 16:29 04:57 WBC 14.0 H 17.7 H (4.8-10.8) X10*3/uL Hgb 15.9 14.9 13.9 L (14.0-18.0) g/dl Hct 46.4 43.4 41.9 L (42.0-52.0) % Plt Count 261 D 191 D (160-400) X10*3/uL BMP 08/09/25 08/10/25 15:11 04:57 Sodium 141 139 Potassium 3.7 4.4 Chloride 113 H 111 H Carbon Dioxide 18 L 19 L BUN 19 H 22 H Creatinine 1.16 1.15 Calcium 8.6 D 8.3 L Liver Function 08/09/25 08/10/25 Range/Units 15:11 04:57 Total Bilirubin 0.7 0.6 (0.0-1.0) mg/dL AST 61 H 43 H (5-37) U/L ALT 27 20 (0-40) U/L Alkaline Phosphatase 94 61 (39-117) U/L Albumin 3.8 3.0 L (3.5-5.0) g/dL Assessment and Plan Patient Active problem list reviewed?: Yes (1) Mass of colon Status: Acute Assessment and plan: 70 year old gentleman, admitted with weakness, lower abdominal pain, nausea, vomiting and diarrhea starting this morning. CAT SCAN of Abdomen: 1. Nonspecific colitis from the hepatic flexure to distal sigmoid with concomitant proctitis. No bowel perforation or ischemia. 2. Large amount of stool in the mid to distal transverse colon with an abrupt transition point at the level of the splenic flexure. A mass here cannot be entirely excluded. 3. Cholelithiasis. Questionable choledocholithiasis. Concomitant dilatation of the pancreatic duct for which the possibility of a periampullary tumor or pancreatic head lesion is not entirely excluded. Note is made of progressive pancreatic parenchymal atrophy since the prior study. AFP: 1.6. CEA level: 20.30. PLAN: The plan is to proceed with a colonoscopy for further evaluation to look for any carcinoma at the level of the splenic flexure. An upper endoscopy will be done at the same time. Can proceed with an abdominal MRI/MRCP to assess for the pancreatic mass. (Checked with MRIs staff regarding the compatibility with the defibrillator. They recommended to get the details from the patient, then discussed with radiologist.) Will make further plans based on the pathology report. Meanwhile, nutritional consult is in order. Thanks, CC: Dr. Travis Mcarthur. - Time Spent With Patient Time Spent with Patient (in minutes): 30
[2025-08-10] MEDS: 0.9 % Sodium Chloride Flush 3 ML SYRINGE IVFLUSH ×2 (08:12→16:09)
[2025-08-10] MEDS: oxyCODONE HCl Immed Release 5 MG TABLET PO ×2 (08:23→18:21)
[2025-08-10 08:24] LABS: E. coli EAEC Not Detected (Not Detect.); E. coli EPEC Not Detected (Not Detect.); E. coli ETEC Not Detected (Not Detect.); E. coli STEC Not Detected (Not Detect.); Shigella sp./EIEC Not Detected (Not Detect.)
[2025-08-10 08:58] LABS: ~Lactic Acid-LAB USE ONLY 3.1 mmol/L (0.5-2.0)
[2025-08-10] MEDS: Lactated Ringers 1,000 ML 80 ML IVCONT ×2 (09:09→20:31)
--- NOTE | 2025-08-10 09:23 | HO.PM.IMPN ---
Subjective Subjective Date of Service: 08/10/25 Interval History: abd pain Physical Exam Exam: Exam: General: AO X2, acute distress Resp: CTA bilateral, no accessory muscles used CVS: S1,S2,RRR GI: soft, tender, non distended Neuro: motor grossly intact, alert Vital Signs: Vital Signs: Last Vital Signs Temp 97.7 F 08/10/25 07:44 Pulse 93 08/10/25 07:44 Resp 16 08/10/25 07:44 BP 106/61 08/10/25 07:44 Pulse Ox 94 08/10/25 07:44 O2 Del Method Room Air 08/10/25 07:44 BMI result Body Mass Index 20.5 Objective Data Active Medications Acetaminophen (Acetaminophen 325 Mg Tablet) 975 mg PO Q6H PRN PRN Reason: Pain, Mild 1-3,fever,headache Last Admin: 08/10/25 00:44 Dose: 975 mg Documented By: BRAD Calcium Carbonate (Calcium Carbonate 750 Mg Tab.Chew) 750 mg PO Q4H PRN PRN Reason: Heartburn Clonidine HCl (Clonidine Hcl 0.1 Mg Tablet) 0.1 mg PO TID [facility]; Protocol Last Admin: 08/10/25 08:23 Dose: 0.1 mg Documented By: PASTORA Docusate Sodium (Docusate Sodium 100 Mg Capsule) 100 mg PO BID PRN PRN Reason: Constipation Duloxetine HCl (Duloxetine Hcl 30 Mg Capsule.Dr) 30 mg PO BID [facility] Last Admin: 08/10/25 08:23 Dose: 30 mg Documented By: PASTORA Hydromorphone HCl (Hydromorphone Hcl 0.5 Mg/0.5 Ml Syringe) 0.5 mg IVPUSH Q4H PRN; Protocol PRN Reason: Pain, Severe (Pain Scale 7-10) Last Admin: 08/09/25 23:53 Dose: 0.5 mg Documented By: BRAD Hydroxyzine HCl (Hydroxyzine Hcl 25 Mg Tablet) 25 mg PO QID [facility] Last Admin: 08/10/25 08:29 Dose: 25 mg Documented By: PASTORA Metronidazole (Flagyl) 500 mg in 100 mls @ 100 mls/hr IV Q8H [facility] Last Infusion: 08/10/25 06:33 Dose: Infused Documented By: GINI Piperacillin Sod/Tazobactam (Sod 3.375 gm/ Sodium Chloride) 50 mls @ 100 mls/hr IV Q6H [facility] Last Infusion: 08/10/25 08:40 Dose: Infused Documented By: PASTORA Lactated Ringer's (Lr) 1,000 mls @ 80 mls/hr IVCONT .[id number] [facility] Last Admin: 08/10/25 09:09 Dose: 80 mls/hr Documented By: PASTORA Lisinopril (Lisinopril 5 Mg Tablet) 5 mg PO DAILY [facility]; Protocol Last Admin: 08/10/25 08:44 Dose: Not Given Documented By: PASTORA Non-Admin Reason: held per Magnesium Hydroxide (Milk Of Magnesia 30 Ml Oral.Susp) 30 ml PO DAILY PRN PRN Reason: Constipation Melatonin (Melatonin 3 Mg Tablet) 6 mg PO BEDTIME PRN PRN Reason: Insomnia Last Admin: 08/09/25 22:11 Dose: 6 mg Documented By: BRAD Methadone HCl (Methadone Hcl 10 Mg Tablet) 10 mg PO BID [facility] Last Admin: 08/10/25 08:23 Dose: 10 mg Documented By: PASTORA Metoprolol Tartrate (Metoprolol Tartrate 50 Mg Tablet) 50 mg PO BID [facility]; Protocol Last Admin: 08/10/25 08:44 Dose: Not Given Documented By: PASTORA Non-Admin Reason: held per Nifedipine (Nifedipine Er 60 Mg Tab.Er.24) 60 mg PO DAILY [facility]; Protocol Last Admin: 08/10/25 08:45 Dose: Not Given Documented By: PASTORA Non-Admin Reason: held per Ondansetron HCl (Ondansetron Hcl 4 Mg/2 Ml Vial) 4 mg IVPUSH Q8H PRN PRN Reason: Nausea and Vomiting Last Admin: 08/09/25 22:17 Dose: 4 mg Documented By: BRAD Oxycodone HCl (Oxycodone Hcl Immed Release 5 Mg Tablet) 5 mg PO Q6H PRN PRN Reason: Pain, Moderate(Pain Scale 4-6) Last Admin: 08/10/25 08:23 Dose: 5 mg Documented By: PASTORA Sodium Chloride (0.9 % Sodium Chloride Flush 3 Ml Syringe) 3 ml IVFLUSH QSHIFT [facility] Last Admin: 08/10/25 08:12 Dose: 3 ml Documented By: VARGHESEFELICIA Trazodone HCl (Trazodone Hcl 50 Mg Tablet) 50 mg PO BEDTIME [facility] Labs 08/10/25 04:57 08/10/25 04:57 Labs: Laboratory Results - last 24 hr 08/09/25 08/09/25 08/09/25 13:42 14:27 15:11 MCV 86.1 MCH 29.5 MCHC 34.3 RDW 12.8 Plt Count 261 D MPV 10.6 Immature Gran % (Auto) 0.9 H Neut % (Auto) 76.2 H Lymph % (Auto) 17.2 L Pope % (Auto) 2.7 Eos % (Auto) 2.6 Baso % (Auto) 0.4 Lymph # (Auto) 2.4 Pope # (Auto) 0.4 Eos # (Auto) 0.4 Baso # (Auto) 0.1 Abs Immat Gran (auto) 0.13 H Absolute Neuts (auto) 10.6 H Absolute Nucleated RBC 0.000 Nucleated RBC % (auto) 0.0 Neutrophils % (Manual) Band Neutrophils % Lymphocytes % (Manual) Monocytes % (Manual) Abs Neuts (Manual) Lymphocytes # (Manual) Monocytes # (Manual) Toxic Vacuolation Platelet Estimate Plt Morphology Comment RBC Morphology Hold Purple Top SEE NOTE Anion Gap 14 Estim Creat Clear Calc 64.1 Estimated GFR > 60 Random Glucose 144 H Fasting Glucose Cancelled Lactic Acid 5.4 H* Lactic Acid F/U @ 2Hr Lactic Acid F/U @ 4Hr Calcium 8.6 D Magnesium Total Bilirubin 0.7 AST 61 H ALT 27 Alkaline Phosphatase 94 Troponin I High Sens 4.8 Total Protein 7.0 Albumin 3.8 Lipase 25 Carcinoembryonic Ag Stool Occult Blood Stl C. cayetanensis PCR Not Detected Stool Rotavirus A PCR Not Detected Stl Adenov F 40/41 PCR Not Detected Stool Astrovirus (PCR) Not Detected Stool Campylobacter PCR Not Detected Stool Cryptosporidium PCR Not Detected Stl Sh Tox Pr E STEC PCR Not Detected Stool E coli O157 PCR Not applicable Stl Enterotoxigenic E PCR Not Detected Stool EPEC (PCR) Not Detected Stool EAEC (PCR) Not Detected Stl E. histolytica PCR Not Detected Stool Giardia Lamblia PCR Not Detected Stl P. shigelloides PCR Not Detected Stool Salmonella PCR Not Detected Stool Sapovirus (PCR) Not Detected Stl Shigella/EIEC PCR Not Detected St Y.enterocolitica PCR Not Detected Stool Vibrio (PCR) Not Detected Stl Vibrio cholerae PCR Not Detected Stl Norovirus GI/GII PCR Not Detected C. difficile Tox B Gene NEGATIVE Blood Type Antibody Screen 08/09/25 08/09/25 08/09/25 16:29 16:31 16:39 MCV MCH MCHC RDW Plt Count MPV Immature Gran % (Auto) Neut % (Auto) Lymph % (Auto) Pope % (Auto) Eos % (Auto) Baso % (Auto) Lymph # (Auto) Pope # (Auto) Eos # (Auto) Baso # (Auto) Abs Immat Gran (auto) Absolute Neuts (auto) Absolute Nucleated RBC Nucleated RBC % (auto) Neutrophils % (Manual) Band Neutrophils % Lymphocytes % (Manual) Monocytes % (Manual) Abs Neuts (Manual) Lymphocytes # (Manual) Monocytes # (Manual) Toxic Vacuolation Platelet Estimate Plt Morphology Comment RBC Morphology Hold Purple Top Anion Gap Estim Creat Clear Calc Estimated GFR Random Glucose Fasting Glucose Lactic Acid Lactic Acid F/U @ 2Hr 4.0 H* Lactic Acid F/U @ 4Hr Calcium Magnesium Total Bilirubin AST ALT Alkaline Phosphatase Troponin I High Sens Total Protein Albumin Lipase Carcinoembryonic Ag Stool Occult Blood POSITIVE Stl C. cayetanensis PCR Stool Rotavirus A PCR Stl Adenov F 40/41 PCR Stool Astrovirus (PCR) Stool Campylobacter PCR Stool Cryptosporidium PCR Stl Sh Tox Pr E STEC PCR Stool E coli O157 PCR Stl Enterotoxigenic E PCR Stool EPEC (PCR) Stool EAEC (PCR) Stl E. histolytica PCR Stool Giardia Lamblia PCR Stl P. shigelloides PCR Stool Salmonella PCR Stool Sapovirus (PCR) Stl Shigella/EIEC PCR St Y.enterocolitica PCR Stool Vibrio (PCR) Stl Vibrio cholerae PCR Stl Norovirus GI/GII PCR C. difficile Tox B Gene Blood Type O Negative Antibody Screen NEGATIVE 08/09/25 08/09/25 08/10/25 19:01 21:59 00:08 MCV MCH MCHC RDW Plt Count MPV Immature Gran % (Auto) Neut % (Auto) Lymph % (Auto) Pope % (Auto) Eos % (Auto) Baso % (Auto) Lymph # (Auto) Pope # (Auto) Eos # (Auto) Baso # (Auto) Abs Immat Gran (auto) Absolute Neuts (auto) Absolute Nucleated RBC Nucleated RBC % (auto) Neutrophils % (Manual) Band Neutrophils % Lymphocytes % (Manual) Monocytes % (Manual) Abs Neuts (Manual) Lymphocytes # (Manual) Monocytes # (Manual) Toxic Vacuolation Platelet Estimate Plt Morphology Comment RBC Morphology Hold Purple Top Anion Gap Estim Creat Clear Calc Estimated GFR Random Glucose Fasting Glucose Lactic Acid 6.6 H* Lactic Acid F/U @ 2Hr Lactic Acid F/U @ 4Hr 4.9 H* Calcium Magnesium Total Bilirubin AST ALT Alkaline Phosphatase Troponin I High Sens Total Protein Albumin Lipase Carcinoembryonic Ag 20.30 Stool Occult Blood Stl C. cayetanensis PCR Stool Rotavirus A PCR Stl Adenov F / PCR Stool Astrovirus (PCR) Stool Campylobacter PCR Stool Cryptosporidium PCR Stl Sh Tox Pr E STEC PCR Stool E coli O157 PCR Stl Enterotoxigenic E PCR Stool EPEC (PCR) Stool EAEC (PCR) Stl E. histolytica PCR Stool Giardia Lamblia PCR Stl P. shigelloides PCR Stool Salmonella PCR Stool Sapovirus (PCR) Stl Shigella/EIEC PCR St Y.enterocolitica PCR Stool Vibrio (PCR) Stl Vibrio cholerae PCR Stl Norovirus GI/GII PCR C. difficile Tox B Gene Blood Type Antibody Screen 08/10/25 08/10/25 04:57 08:30 MCV 86.9 MCH 28.8 MCHC 33.2 RDW 13.1 Plt Count 191 D MPV 10.3 Immature Gran % (Auto) Cancelled Neut % (Auto) Cancelled Lymph % (Auto) Cancelled Pope % (Auto) Cancelled Eos % (Auto) Cancelled Baso % (Auto) Cancelled Lymph # (Auto) Cancelled Pope # (Auto) Cancelled Eos # (Auto) Cancelled Baso # (Auto) Cancelled Abs Immat Gran (auto) Cancelled Absolute Neuts (auto) Cancelled Absolute Nucleated RBC 0.000 Nucleated RBC % (auto) 0.0 Neutrophils % (Manual) 74 H Band Neutrophils % 17 H Lymphocytes % (Manual) 7 L Monocytes % (Manual) 2 Abs Neuts (Manual) 16.1 H Lymphocytes # (Manual) 1.2 Monocytes # (Manual) 0.4 Toxic Vacuolation PRESENT Platelet Estimate NORMAL Plt Morphology Comment NORMAL RBC Morphology NORMAL Hold Purple Top Anion Gap 13 Estim Creat Clear Calc 57.2 Estimated GFR > 60 Random Glucose 111 Fasting Glucose Lactic Acid Lactic Acid F/U @ 2Hr 3.0 H* Lactic Acid F/U @ 4Hr 3.1 H* Calcium 8.3 L Magnesium 1.7 Total Bilirubin 0.6 AST 43 H ALT 20 Alkaline Phosphatase 61 Troponin I High Sens Total Protein 5.8 L Albumin 3.0 L Lipase Carcinoembryonic Ag Stool Occult Blood Stl C. cayetanensis PCR Stool Rotavirus A PCR Stl Adenov F 40/41 PCR Stool Astrovirus (PCR) Stool Campylobacter PCR Stool Cryptosporidium PCR Stl Sh Tox Pr E STEC PCR Stool E coli O157 PCR Stl Enterotoxigenic E PCR Stool EPEC (PCR) Stool EAEC (PCR) Stl E. histolytica PCR Stool Giardia Lamblia PCR Stl P. shigelloides PCR Stool Salmonella PCR Stool Sapovirus (PCR) Stl Shigella/EIEC PCR St Y.enterocolitica PCR Stool Vibrio (PCR) Stl Vibrio cholerae PCR Stl Norovirus GI/GII PCR C. 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, IVDU, AICD, HTN, presented with abd pain Sepsis due to acute colitis iv Zosyn, ivf, culture, stool negative GI eval possible splenic flexure colon mass and possible pancreatic mass gi eval opiate dependence methadone htn nifedipine, clonidine, lopressor, pafib lopressor, hold xarelto for possible gi bleed dvt prophylaxis - mechanical due to gi bleed full code reason for continued hospitalization:awaiting cultures, still febrile Quality Stroke Does the patient have a stroke diagnosis?: No VTE Prior VTE?: No VTE Risk Level:: Medical - moderate - high VTE Device Contraindication: N/A - Device Ordered VTE Drug Contraindication: Treatment Not Indicated
--- NOTE | 2025-08-10 10:51 | HO.WOUND ---
Wound Consult: Initial 70 yr old male admitted to [facility] [place] on 08/09/25 - See progress notes and H&P for detailed history. Wound consult placed for left toes. Patient agreeable to assessment and photo documentation. Intact diffuse deep red coloration to left toes and left lateral foot. not over pressure points, irregular in nature. bilateral heels are intact and blanching - no treatment needed at this time. Re-consult wound care Nurse for wound deterioration or wound changes.
--- NOTE | 2025-08-10 15:53 | MHC.CM.PN ---
PT REPORTS HE IS A RESIDENT OF [facility] HE HAS NO OUTSIDE SERVICES AND USES [facility] FOR DME HCP ON FILE PCP: NOREEN WHYTE IMM DELIVERED DCP: RETURN TO [facility] WILL NEED TRANSPORT ARRANGED
--- NOTE | 2025-08-10 16:06 | PC.NURSE ---
Dr. Gabriel at bedside with pt, at this time pt reported not caring if he lived or . This RN entered room and asked pt if he had any thoughts of harming himself. Pt states If I had a way to kill myself right now I would, If I had a gun I would shoot myself . MD Quick made aware, 1:1 sitter ordered. Pt is otherwise compliant and able to make needs known, agreeable to care.
--- NOTE | 2025-08-10 18:24 | PM.EVENT ---
Event Note Date of Service: 08/10/25 Event Note: GI Consult-Full note dictated-History from patient and the EMR. Imp: 70 yo male with what he describes as new onset diarrhea, but also with some anorexia and weight loss. His workup includes a CT scan raising a suspicion of a colon mass and/or colitis. Stool specimens have been negative for C.diff and GI panel. There has been no report of GI bleeding. He describes previous colonoscopies at [facility] that have been negative, although his last one was > 10 years ago by his memory. His CT also raises a suspicion of CBD stones, but nothing definitive. He denies any RUQ or epigastric pain, and his LFT's are normal. Rec: Upper endoscopy and colonoscopy to evaluate his GI symptoms and abnormal CT. Full consent has been obtained from him for this including risks of bleeding and perforation. This will be done by early next week after the three day holiday weekend. Unfortunately can not not have him undergo a MRCP unless his pacemaker is found to be MRI-compatible. Would hold off on ERCP for now given the somewhat equivocal CT findings, no localizing RUQ or epigastric symptoms, and normal LFT's. D/W patient in detail and he is comfortable with this plan. Thanks. Time Spent With Patient Time: Total time managing care of this patient today ____ minutes.
[2025-08-11] VITALS (8 sets, daily range): BP systolic 106–146; BP diastolic 62–76; PULSE 67–78; RESP 16–18; TEMP 36.1–38; O2SAT 92–95
[2025-08-11] MEDS: oxyCODONE HCl Immed Release 5 MG TABLET PO ×3 (00:16→15:43)
--- NOTE | 2025-08-11 04:00 | CONS_ITS ---
DATE OF SERVICE: 08/10/2025 REASON FOR CONSULTATION: Diarrhea, abnormal CT scan of colon, weight loss, anorexia, and abnormal CT scan of biliary tract. HISTORY OF PRESENT ILLNESS: The patient is able to give an adequate history. History has been obtained from the medical record as well. The patient is a 70-year-old male transferred here from his [facility] for evaluation of some new onset diarrhea, apparent inability to care for himself, anorexia, and weight loss. The patient describes that he developed the onset of fairly acute diarrhea 2-3 days ago. Prior to that, his bowel movements had always been somewhat constipated. He did not notice any hematochezia nor melena. He did not have any vomiting, but did have some nausea. He has had some abdominal cramps. He did not notice any hematochezia nor melena. He describes possible colonoscopy at [facility] over 10 years ago that was negative as far as he knows. There is no family history of inflammatory bowel disease or GI malignancy. He denies any signs of jaundice, fevers, or abdominal pains other than some abdominal cramps. He denies any significant heartburn nor dysphagia. He denies any recent antibiotic use or travel. He denies any definitive ill contacts. MEDICATIONS: At home included acetaminophen, clonidine, Colace, duloxetine, hydroxyzine, lisinopril, methadone, metoprolol, nifedipine, oxycodone, MiraLAX, Senokot, trazodone, and Xarelto. His medications here in the hospital include clonidine, duloxetine, Dilaudid p.r.n., melatonin, lisinopril, methadone, metoprolol, nifedipine ER, Zofran p.r.n., oxycodone p.r.n., IV Zosyn. PAST MEDICAL HISTORY: Depression. PTSD. History of C difficile infection. Defibrillator in place. Hypertension. History of substance abuse. PAST SURGICAL HISTORY: Surgeries include neck and spine surgery. Pacemaker with defibrillator. Hernia surgery. Nose surgery. FAMILY HISTORY: Negative for GI malignancy. SOCIAL HISTORY: He lives in an assisted living, but is very unhappy there. He reports they do not really help him. He presently does not smoke nor use any significant amounts of alcohol. REVIEW OF SYSTEMS: CONSTITUTIONAL: He has been feeling poorly in general with some fatigue and somewhat diminished appetite. CARDIAC: No chest pain. PULMONARY: No coughing or hemoptysis. GI: As above. URINARY: No reported dysuria. No hematuria. NEUROLOGIC: No reported headaches or seizures. PHYSICAL EXAMINATION: GENERAL: The patient is a chronically ill-appearing male, in no distress. SKIN: Warm and dry. NECK: Supple. CARDIAC: Normal S1, S2. ABDOMEN: Soft, nondistended, nontender without palpable mass. LABORATORY DATA: White blood cell count 17,700 compared to 14,000 yesterday and hemoglobin of 13.9, platelets 191,000. PT 15.7 with INR 1.3 back in April. BUN 22, creatinine 1.5. Normal LFTs except for an AST of 43. Albumin 3.0. His CEA level is 20.3. Alpha fetoprotein level and CA 19-9 levels are pending. Stool was negative for C difficile. His CT scan from yesterday of the abdomen describes some gallstones with some biliary tract dilatation and a 3 mm possible common duct stone in the distal portion of the common bile duct. There was some pancreatic atrophy with a dilated pancreatic duct, but no evidence of any pancreatic edema or fluid collection. There is abnormal bowel wall thickening in the region of the colon from the hepatic flexure to the rectum and with an abrupt cutoff to the bowel lumen seen at the level of the splenic flexure, raising a suspicion of a neoplasm. IMPRESSION: In regard to the patient's presentation with his diarrhea, abnormal CT scan of his colon, and a significant elevation of the CEA level, I would certainly think we need to rule out a primary colon neoplasm underlying his current symptomatology. I did recommend an eventual colonoscopy for further evaluation. I would also recommend an upper endoscopy on the same day given his ongoing anorexia and associated weight loss as well. Given the upcoming 3-day weekend, the procedure will not be done until early next week. Full consent has been obtained from him for both procedures, including risks of bleeding and perforation. In the meantime, I will continue supportive care with the antibiotics and IV fluids. In regard to the abnormal CT scan of the biliary tract, this is not definitive, and he has no particular localizing symptoms in that regard, nor any elevation of liver function tests. As such, this may not be entirely definitive true reflection of biliary tract disease. Ideally, I would recommend an MRCP for further evaluation, but his current defibrillator pacemaker may not be compatible with the MRI machine. This can be looked into by the MRI staff in the meantime. Depending upon his clinical course as well as MRCP report, if we can get it done, we would then further assess the possibility of needing MRCP. This has all been discussed in detail with the patient and he is comfortable with the plan. Thank you for the consultation. MD LETICIA Feliz/ARIN / [phone]
--- NOTE | 2025-08-11 05:34 | PC.NURSE ---
Patient expressing thoughts that he does not want to continue life if he has to go home to his rooming house. He is expressing feelings of lonliness, states he has no family and only one friend that is in [place]. Hopelessness for the future.
[2025-08-11 05:53] LABS: MANUAL DIFF FLAG NO
[2025-08-11 06:21] LABS: Alanine Aminotransferase 9 U/L (0-40); Albumin Level 2.8 g/dL (3.5-5.0); Alkaline Phosphatase 47 U/L (39-117); Anion Gap 9 (12-20); Aspartate Amino Transferase 40 U/L (5-37); Blood Urea Nitrogen 19 mg/dL (9-16); Calcium 8.3 mg/dL (8.4-10.2); Carbon Dioxide 21 mmol/L (22-29); Chloride 110 mmol/L (96-108); Creatinine Clr Calc Pharmacy 70.0; Estimated Glomerular Filt Rate > 60; Magnesium 1.8 mg/dL (1.6-2.6); Potassium 3.9 mmol/L (3.3-5.1); Sodium 136 mmol/L (135-145); Total Protein 5.4 g/dL (6.5-8.0)
[2025-08-11 07:02] LABS: INTERNATIONAL NORM RATIO 1.2 (0.9-1.1); Prothrombin Time 14.3 SEC (10.9-12.4)
[2025-08-11 07:09] LABS: Hematocrit 33.3 % (42.0-52.0); Hemoglobin 10.9 g/dl (14.0-18.0); Imm Gran Abs Auto 0.07 X10*3/uL (0.00-0.03); Imm Gran Pct Auto 0.7 % (0.0-0.4); Lymphocytes Absolute Auto 1.3 X10*3/uL (1.2-4.9); Mean Corpuscular HGB Conc 32.7 g/dl (31.0-36.0); Mean Corpuscular Hemoglobin 28.6 pg (27.0-33.0); Mean Corpuscular Volume 87.4 fL (80.0-98.0); NRBC Abs Auto 0.020 X10*3/uL (0.0-0.012); NRBC Pct Auto 0.2 /100WBC (0.0-0.2); Red Blood Count 3.81 X10*6/uL (4.60-5.80); White Blood Count 10.8 X10*3/uL (4.8-10.8)
[2025-08-11 07:17] LABS: Platelet Count 123 X10*3/uL (160-400)
[2025-08-11] MEDS: 0.9 % Sodium Chloride Flush 3 ML SYRINGE IVFLUSH ×2 (08:01→15:44)
[2025-08-11] MEDS: Lactated Ringers 1,000 ML 80 ML IVCONT ×2 (08:18→18:07)
--- NOTE | 2025-08-11 09:31 | P.PNIM_ITS ---
Subjective Subjective Date of Service: 08/11/25 Interval History: suicidal with plan still with abd pain Physical Exam 2 Exam: Exam: General: AO X2, acute distress Resp: CTA bilateral, no accessory muscles used CVS: S1,S2,RRR GI: soft, tender, non distended Neuro: motor grossly intact, alert Vital Signs: Vital Signs: Last Vital Signs Temp 96.9 F 08/11/25 07:36 Pulse 67 08/11/25 07:36 Resp 16 08/11/25 07:36 BP 110/62 08/11/25 07:36 Pulse Ox 95 08/11/25 07:36 O2 Del Method Room Air 08/11/25 07:36 BMI result Body Mass Index 20.5 Objective Data Active Medications Acetaminophen (Acetaminophen 325 Mg Tablet) 975 mg PO Q6H PRN PRN Reason: Pain, Mild 1-3,fever,headache Last Admin: 08/10/25 00:44 Dose: 975 mg Documented By: BRAD Calcium Carbonate (Calcium Carbonate 750 Mg Tab.Chew) 750 mg PO Q4H PRN PRN Reason: Heartburn Clonidine HCl (Clonidine Hcl 0.1 Mg Tablet) 0.1 mg PO TID [facility]; Protocol Last Admin: 08/11/25 07:58 Dose: 0.1 mg Documented By: LOGAN Docusate Sodium (Docusate Sodium 100 Mg Capsule) 100 mg PO BID PRN PRN Reason: Constipation Duloxetine HCl (Duloxetine Hcl 30 Mg Capsule.Dr) 30 mg PO BID [facility] Last Admin: 08/11/25 07:58 Dose: 30 mg Documented By: LOGAN Hydromorphone HCl (Hydromorphone Hcl 0.5 Mg/0.5 Ml Syringe) 0.5 mg IVPUSH Q4H PRN; Protocol PRN Reason: Pain, Severe (Pain Scale 7-10) Last Admin: 08/11/25 04:23 Dose: 0.5 mg Documented By: EMMANUEL Hydroxyzine HCl (Hydroxyzine Hcl 25 Mg Tablet) 25 mg PO QID [facility] Last Admin: 08/11/25 07:58 Dose: 25 mg Documented By: LOGAN Piperacillin Sod/Tazobactam (Sod 3.375 gm/ Sodium Chloride) 50 mls @ 100 mls/hr IV Q6H [facility] Last Infusion: 08/11/25 09:12 Dose: Infused Documented By: LOGAN Lactated Ringer's (Lr) 1,000 mls @ 80 mls/hr IVCONT .[id number] [facility] Last Admin: 08/11/25 08:18 Dose: 80 mls/hr Documented By: LOGAN Lisinopril (Lisinopril 5 Mg Tablet) 5 mg PO DAILY [facility]; Protocol Last Admin: 08/11/25 08:16 Dose: Not Given Documented By: LOGAN Non-Admin Reason: Decreased Blood Pressure Magnesium Hydroxide (Milk Of Magnesia 30 Ml Oral.Susp) 30 ml PO DAILY PRN PRN Reason: Constipation Melatonin (Melatonin 3 Mg Tablet) 6 mg PO BEDTIME PRN PRN Reason: Insomnia Last Admin: 08/09/25 22:11 Dose: 6 mg Documented By: BRAD Methadone HCl (Methadone Hcl 10 Mg Tablet) 10 mg PO BID [facility] Last Admin: 08/11/25 07:58 Dose: 10 mg Documented By: LOGAN Metoprolol Tartrate (Metoprolol Tartrate 50 Mg Tablet) 50 mg PO BID [facility]; Protocol Last Admin: 08/11/25 08:16 Dose: Not Given Documented By: LOGAN Non-Admin Reason: Decreased Blood Pressure Nifedipine (Nifedipine Er 60 Mg Tab.Er.24) 60 mg PO DAILY [facility]; Protocol Last Admin: 08/11/25 08:16 Dose: Not Given Documented By: LOGAN Non-Admin Reason: Decreased Blood Pressure Ondansetron HCl (Ondansetron Hcl 4 Mg/2 Ml Vial) 4 mg IVPUSH Q8H PRN PRN Reason: Nausea and Vomiting Last Admin: 08/09/25 22:17 Dose: 4 mg Documented By: BRAD Oxycodone HCl (Oxycodone Hcl Immed Release 5 Mg Tablet) 5 mg PO Q6H PRN PRN Reason: Pain, Moderate(Pain Scale 4-6) Last Admin: 08/11/25 08:54 Dose: 5 mg Documented By: LOGAN Sodium Chloride (0.9 % Sodium Chloride Flush 3 Ml Syringe) 3 ml IVFLUSH QSHIFT [facility] Last Admin: 08/11/25 08:01 Dose: 3 ml Documented By: LOGAN Trazodone HCl (Trazodone Hcl 50 Mg Tablet) 50 mg PO BEDTIME [place] Last Admin: 08/10/25 20:28 Dose: 50 mg Documented By: BRAD Labs 08/11/25 05:48 08/11/25 05:48 Labs: Laboratory Results - last 24 hr 08/11/25 08/11/25 08/11/25 05:48 05:48 05:48 MCV Cancelled 87.4 MCH Cancelled 28.6 MCHC Cancelled RDW Plt Count MPV Immature Gran % (Auto) Neut % (Auto) Lymph % (Auto) [place] % (Auto) Eos % (Auto) Baso % (Auto) Lymph # (Auto) [place] # (Auto) Eos # (Auto) Baso # (Auto) Abs Immat Gran (auto) Absolute Neuts (auto) Absolute Nucleated RBC Nucleated RBC % (auto) PT INR Anion Gap Estim Creat Clear Calc Estimated GFR Random Glucose Calcium Magnesium Total Bilirubin AST ALT Alkaline Phosphatase Total Protein Albumin 08/11/25 08/11/25 08/11/25 05:48 05:48 05:48 MCV MCH MCHC 32.7 RDW Cancelled 13.5 Plt Count Cancelled 123 L D MPV Cancelled Immature Gran % (Auto) Neut % (Auto) Lymph % (Auto) [place] % (Auto) Eos % (Auto) Baso % (Auto) Lymph # (Auto) [place] # (Auto) Eos # (Auto) Baso # (Auto) Abs Immat Gran (auto) Absolute Neuts (auto) Absolute Nucleated RBC Nucleated RBC % (auto) PT INR Anion Gap Estim Creat Clear Calc Estimated GFR Random Glucose Calcium Magnesium Total Bilirubin AST ALT Alkaline Phosphatase Total Protein Albumin 08/11/25 08/11/25 08/11/25 05:48 05:48 05:48 MCV MCH MCHC RDW Plt Count MPV 11.1 Immature Gran % (Auto) 0.7 H Neut % (Auto) 80.2 H Lymph % (Auto) 11.8 L [place] % (Auto) 6.7 Eos % (Auto) 0.4 Baso % (Auto) 0.2 Lymph # (Auto) 1.3 [place] # (Auto) 0.7 Eos # (Auto) 0.0 Baso # (Auto) 0.0 Abs Immat Gran (auto) 0.07 H Absolute Neuts (auto) 8.6 H Absolute Nucleated RBC Cancelled 0.020 H Nucleated RBC % (auto) Cancelled 0.2 PT 14.3 H INR 1.2 H Anion Gap 9 L Estim Creat Clear Calc 70.0 Estimated GFR > 60 Random Glucose 77 Calcium 8.3 L Magnesium 1.8 Total Bilirubin 0.5 AST 40 H ALT 9 Alkaline Phosphatase 47 Total Protein 5.4 L Albumin 2.8 L Microbiology Microbiology Results: Microbiology 08/09/25 14:12 Blood Culture - Preliminary Blood - Venous No growth after 24 hours. 08/09/25 14:11 Blood Culture - Preliminary Blood - Venous No growth after 24 hours. Assessment and Plan (1) Acute colitis: Status: Acute Plan 70M PMH mood disorder, pafib on xarelto, IVDU, AICD, HTN, presented with abd pain Sepsis due to acute colitis iv Zosyn, ivf, culture, stool negative possible splenic flexure colon mass and possible pancreatic mass gi appreciated - plan for eventual scope unable to get MRCP due to lack of info on AICD suicidal ideation sitter care team prior to discharge opiate dependence methadone htn nifedipine, clonidine, lopressor pafib lopressor, hold xarelto for possible gi bleed dvt prophylaxis - mechanical due to gi bleed full code reason for continued hospitalization:awaiting cultures Quality Stroke Does the patient have a stroke diagnosis?: No VTE Prior VTE?: No VTE Risk Level:: Medical - moderate - high VTE Device Contraindication: N/A - Device Ordered VTE Drug Contraindication: Treatment Not Indicated
--- NOTE | 2025-08-11 11:51 | MHC.CM.PN ---
per rounds pt will be here over the weekend will hodgson remains retrun to bharat
[2025-08-12] VITALS (8 sets, daily range): BP systolic 100–140; BP diastolic 59–73; PULSE 70–84; RESP 18–20; TEMP 36.7–37.9; O2SAT 90–95
[2025-08-12] MEDS: 0.9 % Sodium Chloride Flush 3 ML SYRINGE IVFLUSH ×4 (00:27→21:20)
[2025-08-12] MEDS: Lactated Ringers 1,000 ML 80 ML IVCONT (06:11)
[2025-08-12 06:35] LABS: Hemoglobin 9.4 g/dl (14.0-18.0); NRBC Abs Auto 0.000 X10*3/uL (0.0-0.012); NRBC Pct Auto 0.0 /100WBC (0.0-0.2); PLT CLUMP 1
[2025-08-12 06:37] LABS: Hematocrit 28.3 % (42.0-52.0); Mean Corpuscular HGB Conc 33.2 g/dl (31.0-36.0); Mean Corpuscular Hemoglobin 29.4 pg (27.0-33.0); Mean Corpuscular Volume 88.4 fL (80.0-98.0); Red Blood Count 3.20 X10*6/uL (4.60-5.80)
[2025-08-12 06:42] LABS: Platelet Count 91 X10*3/uL (160-400); White Blood Count 5.4 X10*3/uL (4.8-10.8)
[2025-08-12 06:56] LABS: Alanine Aminotransferase 6 U/L (0-40); Albumin Level 2.5 g/dL (3.5-5.0); Alkaline Phosphatase 44 U/L (39-117); Anion Gap 7 (12-20); Aspartate Amino Transferase 39 U/L (5-37); Blood Urea Nitrogen 13 mg/dL (9-16); Calcium 7.9 mg/dL (8.4-10.2); Carbon Dioxide 24 mmol/L (22-29); Chloride 112 mmol/L (96-108); Creatinine Clr Calc Pharmacy 85.5; Estimated Glomerular Filt Rate > 60; Magnesium 1.7 mg/dL (1.6-2.6); Potassium 3.8 mmol/L (3.3-5.1); Sodium 139 mmol/L (135-145); Total Protein 4.8 g/dL (6.5-8.0)
[2025-08-12 07:02] LABS: Band Neutrophils Percent 3 % (3-5); Eosinophils Absolute Manual 0.1 X10*3/uL (0.0-0.4); Eosinophils Percent Manual 2 % (0-4); Lymphocytes Absolute Manual 0.9 X10*3/uL (1.2-4.9); Lymphocytes Percent Manual 17 % (20-40); Monocytes Absolute Manual 0.1 X10*3/uL (0.1-1.2); Monocytes Percent Manual 2 % (2-11); Neutrophils Absolute Manual 4.3 X10*3/uL (2.0-8.3); Neutrophils Percent Manual 76 % (45-73)
[2025-08-12 07:04] LABS: Hypochromasia 1+ (5-14) /OIF; Polychromasia 1+ (0-2) /OIF; RBC Morphology NOTED
[2025-08-12] MEDS: oxyCODONE HCl Immed Release 5 MG TABLET PO ×2 (09:17→15:29)
--- NOTE | 2025-08-12 09:17 | P.PNIM_ITS ---
Subjective Subjective Date of Service: 08/12/25 Interval History: suicidal with plan still with abd pain Physical Exam 2 Exam: Exam: General: AO X2, acute distress Resp: CTA bilateral, no accessory muscles used CVS: S1,S2,RRR GI: soft, tender, non distended Neuro: motor grossly intact, alert Vital Signs: Vital Signs: Last Vital Signs Temp 98.8 F 08/12/25 07:02 Pulse 70 08/12/25 07:02 Resp 18 08/12/25 07:02 BP 124/71 08/12/25 07:02 Pulse Ox 95 08/12/25 07:02 O2 Del Method Room Air 08/12/25 07:02 BMI result Body Mass Index 20.5 Objective Data Active Medications Acetaminophen (Acetaminophen 325 Mg Tablet) 975 mg PO Q6H PRN PRN Reason: Pain, Mild 1-3,fever,headache Last Admin: 08/11/25 23:22 Dose: 975 mg Documented By: MIKALA Calcium Carbonate (Calcium Carbonate 750 Mg Tab.Chew) 750 mg PO Q4H PRN PRN Reason: Heartburn Ceftriaxone Sodium (Ceftriaxone Sodium 1 Gm Vial) 1 gm IVPUSH Q24H [place] Clonidine HCl (Clonidine Hcl 0.1 Mg Tablet) 0.1 mg PO TID [facility]; Protocol Last Admin: 08/11/25 21:14 Dose: 0.1 mg Documented By: MIKALA Docusate Sodium (Docusate Sodium 100 Mg Capsule) 100 mg PO BID PRN PRN Reason: Constipation Duloxetine HCl (Duloxetine Hcl 30 Mg Capsule.Dr) 30 mg PO BID [facility] Last Admin: 08/11/25 21:14 Dose: 30 mg Documented By: MIKALA Hydromorphone HCl (Hydromorphone Hcl 0.5 Mg/0.5 Ml Syringe) 0.5 mg IVPUSH Q4H PRN; Protocol PRN Reason: Pain, Severe (Pain Scale 7-10) Last Admin: 08/11/25 11:02 Dose: 0.5 mg Documented By: LOGAN Hydroxyzine HCl (Hydroxyzine Hcl 25 Mg Tablet) 25 mg PO QID [facility] Last Admin: 08/11/25 21:15 Dose: 25 mg Documented By: MIKALA Metronidazole (Flagyl) 500 mg in 100 mls @ 100 mls/hr IV Q8H [place] Lisinopril (Lisinopril 5 Mg Tablet) 5 mg PO DAILY [facility]; Protocol Last Admin: 08/11/25 08:16 Dose: Not Given Documented By: LOGAN Non-Admin Reason: Decreased Blood Pressure Loperamide HCl (Loperamide Hcl 2 Mg Capsule) 2 mg PO Q4H PRN PRN Reason: Diarrhea Last Admin: 08/11/25 15:58 Dose: 2 mg Documented By: PASTORA Magnesium Hydroxide (Milk Of Magnesia 30 Ml Oral.Susp) 30 ml PO DAILY PRN PRN Reason: Constipation Melatonin (Melatonin 3 Mg Tablet) 6 mg PO BEDTIME PRN PRN Reason: Insomnia Last Admin: 08/09/25 22:11 Dose: 6 mg Documented By: BRAD Methadone HCl (Methadone Hcl 10 Mg Tablet) 10 mg PO BID [facility] Last Admin: 08/11/25 21:15 Dose: 10 mg Documented By: MIKALA Metoprolol Tartrate (Metoprolol Tartrate 50 Mg Tablet) 50 mg PO BID [facility]; Protocol Last Admin: 08/11/25 21:15 Dose: 50 mg Documented By: MIKALA Nifedipine (Nifedipine Er 60 Mg Tab.Er.24) 60 mg PO DAILY [facility]; Protocol Last Admin: 08/11/25 08:16 Dose: Not Given Documented By: LOGAN Non-Admin Reason: Decreased Blood Pressure Ondansetron HCl (Ondansetron Hcl 4 Mg/2 Ml Vial) 4 mg IVPUSH Q8H PRN PRN Reason: Nausea and Vomiting Last Admin: 08/09/25 22:17 Dose: 4 mg Documented By: BRAD Oxycodone HCl (Oxycodone Hcl Immed Release 5 Mg Tablet) 5 mg PO Q6H PRN PRN Reason: Pain, Moderate(Pain Scale 4-6) Last Admin: 08/11/25 15:43 Dose: 5 mg Documented By: PASTORA Sodium Chloride (0.9 % Sodium Chloride Flush 3 Ml Syringe) [facility] Last Admin: 08/12/25 00:27 Dose: 3 ml Documented By: MIKALA Trazodone HCl (Trazodone Hcl 50 Mg Tablet) 50 mg PO BEDTIME [facility] Last Admin: 08/11/25 21:14 Dose: 50 mg Documented By: MIKALA Labs 08/12/25 06:11 08/12/25 06:11 Labs: Laboratory Results - last 24 hr 08/12/25 06:11 MCV 88.4 MCH 29.4 MCHC 33.2 RDW 13.4 Plt Count 91 L D MPV 10.9 Immature Gran % (Auto) Cancelled Neut % (Auto) Cancelled Lymph % (Auto) Cancelled [place] % (Auto) Cancelled Eos % (Auto) Cancelled Baso % (Auto) Cancelled Lymph # (Auto) Cancelled [place] # (Auto) Cancelled Eos # (Auto) Cancelled Baso # (Auto) Cancelled Abs Immat Gran (auto) Cancelled Absolute Neuts (auto) Cancelled Absolute Nucleated RBC 0.000 Nucleated RBC % (auto) 0.0 Neutrophils % (Manual) 76 H Band Neutrophils % 3 Lymphocytes % (Manual) 17 L Monocytes % (Manual) 2 Eosinophils % (Manual) 2 Abs Neuts (Manual) 4.3 Lymphocytes # (Manual) 0.9 L Monocytes # (Manual) 0.1 Eosinophils # (Manual) 0.1 Platelet Estimate DECREASED Plt Morphology Comment NORMAL RBC Morphology NOTED Polychromasia 1+ (0-2) Hypochromasia 1+ (5-14) Anion Gap 7 L Estim Creat Clear Calc 85.5 Estimated GFR > 60 Random Glucose 87 Calcium 7.9 L Magnesium 1.7 Total Bilirubin 0.3 AST 39 H ALT 6 Alkaline Phosphatase 44 Total Protein 4.8 L Albumin 2.5 L Microbiology Microbiology Results: Microbiology 08/09/25 14:11 Blood Culture - Preliminary Blood - Venous No growth after 48 hours. 08/09/25 14:12 Blood Culture - Preliminary Blood - Venous No growth after 48 hours. Assessment and Plan (1) Acute colitis: Status: Acute Plan 70M PMH mood disorder, pafib on xarelto, IVDU, AICD, HTN, presented with abd pain Sepsis due to acute colitis ivf, culture, stool negative now with acute thrombocytopenia, possible due to zosyn, will change to rocephin/flagyl possible splenic flexure colon mass and possible pancreatic mass gi appreciated - plan for eventual scope unable to get MRCP due to lack of info on AICD suicidal ideation sitter care team prior to discharge opiate dependence methadone htn nifedipine, clonidine, lopressor pafib lopressor, hold xarelto for possible gi bleed dvt prophylaxis - mechanical due to gi bleed full code reason for continued hospitalization:plan for scope Quality Stroke Does the patient have a stroke diagnosis?: No VTE Prior VTE?: No VTE Risk Level:: Medical - moderate - high VTE Device Contraindication: N/A - Device Ordered VTE Drug Contraindication: Treatment Not Indicated
[2025-08-12] MEDS: NIFEdipine ER 60 MG TAB.ER.24 PO (09:18)
[2025-08-12] MEDS: metroNIDAZOLE/NS 500 MG/100 ML PIGGYBACK 100 MG IV ×3 (09:18→23:37)
[2025-08-13] VITALS (8 sets, daily range): BP systolic 90–108; BP diastolic 49–64; PULSE 69–79; RESP 18; TEMP 36.8–37.1; O2SAT 85–95
[2025-08-13] MEDS: oxyCODONE HCl Immed Release 5 MG TABLET PO ×2 (06:11→17:32)
[2025-08-13 06:32] LABS: Hematocrit 31.8 % (42.0-52.0); Hemoglobin 10.5 g/dl (14.0-18.0); Mean Corpuscular HGB Conc 33.0 g/dl (31.0-36.0); Mean Corpuscular Hemoglobin 29.0 pg (27.0-33.0); Mean Corpuscular Volume 87.8 fL (80.0-98.0); NRBC Abs Auto 0.000 X10*3/uL (0.0-0.012); NRBC Pct Auto 0.0 /100WBC (0.0-0.2); Platelet Count 130 X10*3/uL (160-400); Red Blood Count 3.62 X10*6/uL (4.60-5.80); White Blood Count 7.4 X10*3/uL (4.8-10.8)
[2025-08-13 06:45] LABS: Anion Gap 9 (12-20); Blood Urea Nitrogen 8 mg/dL (9-16); Calcium 8.0 mg/dL (8.4-10.2); Carbon Dioxide 25 mmol/L (22-29); Chloride 107 mmol/L (96-108); Creatinine Clr Calc Pharmacy 88.9; Estimated Glomerular Filt Rate > 60; Potassium 3.3 mmol/L (3.3-5.1); Sodium 138 mmol/L (135-145)
[2025-08-13] MEDS: NIFEdipine ER 60 MG TAB.ER.24 PO (08:00)
[2025-08-13] MEDS: 0.9 % Sodium Chloride Flush 3 ML SYRINGE IVFLUSH ×2 (08:00→16:27)
[2025-08-13] MEDS: metroNIDAZOLE/NS 500 MG/100 ML PIGGYBACK 100 MG IV ×2 (08:00→16:27)
--- NOTE | 2025-08-13 08:39 | HO.PM.IMPN ---
Subjective Subjective Date of Service: 08/13/25 Interval History: ongoing abd pain Physical Exam Exam: Exam: General: AO X2, acute distress Resp: CTA bilateral, no accessory muscles used CVS: S1,S2,RRR GI: soft, tender, non distended Neuro: motor grossly intact, alert Vital Signs: Vital Signs: Last Vital Signs Temp 98.8 F 08/13/25 07:39 Pulse 79 08/13/25 07:39 Resp 18 08/13/25 07:39 BP 105/49 L 08/13/25 07:39 Pulse Ox 93 08/13/25 07:46 O2 Del Method Nasal Cannula 08/13/25 07:46 O2 Flow Rate 2 08/13/25 07:46 BMI result Body Mass Index 20.5 Objective Data Active Medications Acetaminophen (Acetaminophen 325 Mg Tablet) 975 mg PO Q6H PRN PRN Reason: Pain, Mild 1-3,fever,headache Last Admin: 08/11/25 23:22 Dose: 975 mg Documented By: MIKALA Calcium Carbonate (Calcium Carbonate 750 Mg Tab.Chew) 750 mg PO Q4H PRN PRN Reason: Heartburn Ceftriaxone Sodium (Ceftriaxone Sodium 1 Gm Vial) 1 gm IVPUSH Q24H [facility] Last Admin: 08/13/25 08:08 Dose: 1 gm Documented By: RAVEN Clonidine HCl (Clonidine Hcl 0.1 Mg Tablet) 0.1 mg PO TID [facility]; Protocol Last Admin: 08/13/25 08:13 Dose: 0.1 mg Documented By: RAVEN Docusate Sodium (Docusate Sodium 100 Mg Capsule) 100 mg PO BID PRN PRN Reason: Constipation Duloxetine HCl (Duloxetine Hcl 30 Mg Capsule.Dr) 30 mg PO BID [facility] Last Admin: 08/13/25 07:59 Dose: 30 mg Documented By: RAVEN Hydromorphone HCl (Hydromorphone Hcl 0.5 Mg/0.5 Ml Syringe) 0.5 mg IVPUSH Q4H PRN; Protocol PRN Reason: Pain, Severe (Pain Scale 7-10) Last Admin: 08/11/25 11:02 Dose: 0.5 mg Documented By: LOGAN Hydroxyzine HCl (Hydroxyzine Hcl 25 Mg Tablet) 25 mg PO QID [facility] Last Admin: 08/13/25 07:59 Dose: 25 mg Documented By: RAVEN Metronidazole (Flagyl) 500 mg in 100 mls @ 100 mls/hr IV Q8H [facility] Last Admin: 08/13/25 08:00 Dose: 100 mls/hr Documented By: RAVEN Albumin Human (Kedbumin 25 %) 100 mls @ 100 mls/hr IV Q6H [facility] Stop: 08/13/25 15:44 Lisinopril (Lisinopril 5 Mg Tablet) 5 mg PO DAILY [facility]; Protocol Last Admin: 08/13/25 07:59 Dose: 5 mg Documented By: RAVEN Loperamide HCl (Loperamide Hcl 2 Mg Capsule) 2 mg PO Q4H PRN PRN Reason: Diarrhea Last Admin: 08/11/25 15:58 Dose: 2 mg Documented By: PASTORA Magnesium Hydroxide (Milk Of Magnesia 30 Ml Oral.Susp) 30 ml PO DAILY PRN PRN Reason: Constipation Melatonin (Melatonin 3 Mg Tablet) 6 mg PO BEDTIME PRN PRN Reason: Insomnia Last Admin: 08/09/25 22:11 Dose: 6 mg Documented By: BRAD Methadone HCl (Methadone Hcl 10 Mg Tablet) 10 mg PO BID [facility] Last Admin: 08/13/25 08:00 Dose: 10 mg Documented By: RAVEN Metoprolol Tartrate (Metoprolol Tartrate 50 Mg Tablet) 50 mg PO BID [facility]; Protocol Last Admin: 08/13/25 08:00 Dose: 50 mg Documented By: RAVEN Nifedipine (Nifedipine Er 60 Mg Tab.Er.24) 60 mg PO DAILY [facility]; Protocol Last Admin: 08/13/25 08:00 Dose: 60 mg Documented By: RAVEN Ondansetron HCl (Ondansetron Hcl 4 Mg/2 Ml Vial) 4 mg IVPUSH Q8H PRN PRN Reason: Nausea and Vomiting Last Admin: 08/09/25 22:17 Dose: 4 mg Documented By: BRAD Oxycodone HCl (Oxycodone Hcl Immed Release 5 Mg Tablet) 5 mg PO Q6H PRN PRN Reason: Pain, Moderate(Pain Scale 4-6) Last Admin: 08/13/25 06:11 Dose: 5 mg Documented By: MIKALA Sodium Chloride (0.9 % Sodium Chloride Flush 3 Ml Syringe) 3 ml IVFLUSH QSHIFT [facility] Last Admin: 08/13/25 08:00 Dose: 3 ml Documented By: RAVEN Trazodone HCl (Trazodone Hcl 50 Mg Tablet) 50 mg PO BEDTIME [facility] Last Admin: 08/12/25 21:16 Dose: 50 mg Documented By: MIKALA Labs 08/13/25 06:21 08/13/25 06:21 Labs: Laboratory Results - last 24 hr 08/13/25 06:21 MCV 87.8 MCH 29.0 MCHC 33.0 RDW 13.2 Plt Count 130 L D MPV 10.4 Absolute Nucleated RBC 0.000 Nucleated RBC % (auto) 0.0 Anion Gap 9 L Estim Creat Clear Calc 88.9 Estimated GFR > 60 Random Glucose 100 Calcium 8.0 L Assessment and Plan (1) Acute colitis: Status: Acute Plan 70M PMH mood disorder, pafib on xarelto, IVDU, AICD, HTN, presented with abd pain Sepsis due to acute colitis ivf, culture, stool negative now with acute thrombocytopenia, possible due to zosyn, changed to rocephin/flagyl, improving possible splenic flexure colon mass and possible pancreatic mass gi appreciated - plan for eventual scope unable to get MRCP due to lack of info on AICD acute hypoxic resp failure check cxr gi protein loss will give iv albumin suicidal ideation sitter care team prior to discharge opiate dependence methadone htn nifedipine, clonidine, lopressor pafib lopressor, hold xarelto for possible gi bleed dvt prophylaxis - mechanical due to gi bleed full code reason for continued hospitalization:plan for scope, hypoxia Quality Stroke Does the patient have a stroke diagnosis?: No VTE Prior VTE?: No VTE Risk Level:: Medical - moderate - high VTE Device Contraindication: N/A - Device Ordered VTE Drug Contraindication: Treatment Not Indicated
[2025-08-13] MEDS: Albumin Human 25 % 100 ML IV ×2 (09:18→15:19)
--- NOTE | 2025-08-13 18:23 | PM.EVENT ---
Event Note Date of Service: 08/13/25 Event Note: GI-Course noted-I put orders in for his upper endoscopy and colonoscopy scheduled for 08/15/2025. Please call if questions. Thanks Time Spent With Patient Time: Total time managing care of this patient today ____ minutes.
[2025-08-14] MEDS: metroNIDAZOLE/NS 500 MG/100 ML PIGGYBACK 100 MG IV ×4 (00:56→23:32)
[2025-08-14] MEDS: 0.9 % Sodium Chloride Flush 3 ML SYRINGE IVFLUSH ×4 (01:19→21:16)
[2025-08-14 04:00] VITALS: BP 101/53; PULSE 77; RESP 16; TEMP 36.7; O2SAT 92
[2025-08-14 05:36] LABS: Hematocrit 28.5 % (42.0-52.0); Hemoglobin 9.3 g/dl (14.0-18.0); Mean Corpuscular HGB Conc 32.6 g/dl (31.0-36.0); Mean Corpuscular Hemoglobin 29.0 pg (27.0-33.0); Mean Corpuscular Volume 88.8 fL (80.0-98.0); NRBC Abs Auto 0.000 X10*3/uL (0.0-0.012); NRBC Pct Auto 0.0 /100WBC (0.0-0.2); Platelet Count 116 X10*3/uL (160-400); Red Blood Count 3.21 X10*6/uL (4.60-5.80); White Blood Count 5.6 X10*3/uL (4.8-10.8)
[2025-08-14 05:47] LABS: Alanine Aminotransferase 8 U/L (0-40); Albumin Level 3.0 g/dL (3.5-5.0); Alkaline Phosphatase 48 U/L (39-117); Anion Gap 10 (12-20); Aspartate Amino Transferase 31 U/L (5-37); Blood Urea Nitrogen 5 mg/dL (9-16); Calcium 8.0 mg/dL (8.4-10.2); Carbon Dioxide 23 mmol/L (22-29); Chloride 110 mmol/L (96-108); Creatinine Clr Calc Pharmacy 96.8; Estimated Glomerular Filt Rate > 60; Magnesium 1.8 mg/dL (1.6-2.6); Potassium 3.3 mmol/L (3.3-5.1); Sodium 140 mmol/L (135-145); Total Protein 5.4 g/dL (6.5-8.0)
[2025-08-14 07:01] VITALS: BP 117/63; PULSE 81; RESP 16; TEMP 37.4; O2SAT 97
[2025-08-14] MEDS: NIFEdipine ER 60 MG TAB.ER.24 PO (08:02)
[2025-08-14] MEDS: oxyCODONE HCl Immed Release 5 MG TABLET PO ×3 (08:03→18:15)
--- NOTE | 2025-08-14 08:19 | HO.PM.IMPN ---
Subjective Subjective Date of Service: 08/14/25 Interval History: ongoing abd pain Physical Exam Exam: Exam: General: AO X2, acute distress Resp: CTA bilateral, no accessory muscles used CVS: S1,S2,RRR GI: soft, tender, non distended Neuro: motor grossly intact, alert Vital Signs: Vital Signs: Last Vital Signs Temp 99.3 F 08/14/25 07:01 Pulse 81 08/14/25 07:01 Resp 16 08/14/25 07:01 BP 117/63 08/14/25 07:01 Pulse Ox 97 08/14/25 07:01 O2 Del Method Nasal Cannula 08/14/25 07:01 O2 Flow Rate 2 08/14/25 07:01 BMI result Body Mass Index 20.5 Objective Data Active Medications Acetaminophen (Acetaminophen 325 Mg Tablet) 975 mg PO Q6H PRN PRN Reason: Pain, Mild 1-3,fever,headache Last Admin: 08/11/25 23:22 Dose: 975 mg Documented By: MIKALA Bisacodyl (Bisacodyl 5 Mg Tablet.) 10 mg PO ONCE ONE Stop: 08/14/25 15:01 Bisacodyl (Bisacodyl 5 Mg Tablet.) 10 mg PO ONCE ONE Stop: 08/14/25 19:01 Calcium Carbonate (Calcium Carbonate 750 Mg Tab.Chew) 750 mg PO Q4H PRN PRN Reason: Heartburn Ceftriaxone Sodium (Ceftriaxone Sodium 1 Gm Vial) 1 gm IVPUSH Q24H [facility] Last Admin: 08/14/25 08:03 Dose: 1 gm Documented By: RAVEN Clonidine HCl (Clonidine Hcl 0.1 Mg Tablet) 0.1 mg PO TID [facility]; Protocol Last Admin: 08/14/25 08:02 Dose: 0.1 mg Documented By: RAVEN Docusate Sodium (Docusate Sodium 100 Mg Capsule) 100 mg PO BID PRN PRN Reason: Constipation Duloxetine HCl (Duloxetine Hcl 30 Mg Capsule.) 30 mg PO BID [facility] Last Admin: 08/14/25 08:02 Dose: 30 mg Documented By: RAVEN Hydromorphone HCl (Hydromorphone Hcl 0.5 Mg/0.5 Ml Syringe) 0.5 mg IVPUSH Q4H PRN; Protocol PRN Reason: Pain, Severe (Pain Scale 7-10) Last Admin: 08/11/25 11:02 Dose: 0.5 mg Documented By: LOGAN Hydroxyzine HCl (Hydroxyzine Hcl 25 Mg Tablet) 25 mg PO QID [facility] Last Admin: 08/14/25 08:02 Dose: 25 mg Documented By: RAVEN Metronidazole (Flagyl) 500 mg in 100 mls @ 100 mls/hr IV Q8H [facility] Last Admin: 08/14/25 08:01 Dose: 100 mls/hr Documented By: RAVEN Lisinopril (Lisinopril 5 Mg Tablet) 5 mg PO DAILY [facility]; Protocol Last Admin: 08/14/25 08:02 Dose: 5 mg Documented By: RAVEN Loperamide HCl (Loperamide Hcl 2 Mg Capsule) 2 mg PO Q4H PRN PRN Reason: Diarrhea Last Admin: 08/11/25 15:58 Dose: 2 mg Documented By: PASTORA Magnesium Hydroxide (Milk Of Magnesia 30 Ml Oral.Susp) 30 ml PO DAILY PRN PRN Reason: Constipation Melatonin (Melatonin 3 Mg Tablet) 6 mg PO BEDTIME PRN PRN Reason: Insomnia Last Admin: 08/09/25 22:11 Dose: 6 mg Documented By: BRAD Methadone HCl (Methadone Hcl 10 Mg Tablet) 10 mg PO BID [facility] Last Admin: 08/14/25 08:02 Dose: 10 mg Documented By: RAVEN Metoprolol Tartrate (Metoprolol Tartrate 50 Mg Tablet) 50 mg PO BID [facility]; Protocol Last Admin: 08/14/25 08:02 Dose: 50 mg Documented By: RAVEN Nifedipine (Nifedipine Er 60 Mg Tab.Er.24) 60 mg PO DAILY [facility]; Protocol Last Admin: 08/14/25 08:02 Dose: 60 mg Documented By: RAVEN Ondansetron HCl (Ondansetron Hcl 4 Mg/2 Ml Vial) 4 mg IVPUSH Q8H PRN PRN Reason: Nausea and Vomiting Last Admin: 08/13/25 11:30 Dose: 4 mg Documented By: RAVEN Oxycodone HCl (Oxycodone Hcl Immed Release 5 Mg Tablet) 5 mg PO Q6H PRN PRN Reason: Pain, Moderate(Pain Scale 4-6) Last Admin: 08/14/25 08:03 Dose: 5 mg Documented By: RAVEN Polyethylene Glycol/Electrolytes (Peg 3350/Na Sulf,Bicarb,Cl/Kcl 4,000 Ml Soln.Recon) 4,000 ml PO ONCE ONE Stop: 08/14/25 16:01 Sodium Biphosphate/Sodium Phosphate (Sodium Phosphate,Upson-Dibasic 133 Ml Enema) 133 ml LA ONCE PRN PRN Reason: Poor Colonoscopy Prep Results Sodium Chloride (0.9 % Sodium Chloride Flush 3 Ml Syringe) 3 ml IVFLUSH QSHIFT [facility] Last Admin: 08/14/25 08:02 Dose: 3 ml Documented By: RAVEN Trazodone HCl (Trazodone Hcl 50 Mg Tablet) 50 mg PO BEDTIME [facility] Last Admin: 08/13/25 20:00 Dose: 50 mg Documented By: MIKALA Labs 08/14/25 05:18 08/14/25 05:18 Labs: Laboratory Results - last 24 hr 08/14/25 05:18 MCV 88.8 MCH 29.0 MCHC 32.6 RDW 13.2 Plt Count 116 L MPV 10.5 Absolute Nucleated RBC 0.000 Nucleated RBC % (auto) 0.0 Anion Gap 10 L Estim Creat Clear Calc 96.8 Estimated GFR > 60 Random Glucose 96 Calcium 8.0 L Magnesium 1.8 Total Bilirubin 0.3 Direct Bilirubin 0.1 AST 31 ALT 8 Alkaline Phosphatase 48 Total Protein 5.4 L Albumin 3.0 L Assessment and Plan (1) Acute colitis: Status: Acute Plan 70M PMH mood disorder, pafib on xarelto, IVDU, AICD, HTN, presented with abd pain Sepsis due to acute colitis ivf, culture, stool negative now with acute thrombocytopenia, possible due to zosyn, changed to rocephin/flagyl, improving possible splenic flexure colon mass and possible pancreatic mass gi appreciated - plan for scope 08/15 unable to get MRCP due to lack of info on AICD acute hypoxic resp failure wean o2 gi protein loss will give iv albumin suicidal ideation sitter care team prior to discharge opiate dependence methadone htn nifedipine, clonidine, lopressor pafib lopressor, hold xarelto for possible gi bleed dvt prophylaxis - mechanical due to gi bleed full code reason for continued hospitalization:plan for scope, hypoxia Quality Stroke Does the patient have a stroke diagnosis?: No VTE Prior VTE?: No VTE Risk Level:: Medical - moderate - high VTE Device Contraindication: N/A - Device Ordered VTE Drug Contraindication: Treatment Not Indicated
[2025-08-14 14:50] VITALS: BP 112/59
[2025-08-14 15:58] VITALS: BP 113/61; PULSE 70; RESP 16; TEMP 36.8; O2SAT 92
[2025-08-14] MEDS: PEG 3350/Na Sulf,Bicarb,Cl/KCL 4,000 ML SOLN.RECON 4000 ML PO (17:15)
--- NOTE | 2025-08-14 18:46 | PC.NURSE ---
Patient is agitated, yelling out and swearing saying that he is getting sicker and no one care. Patient is refusing the bowel prep for colonoscopy becuase it is making him shit . Education was provided to patient with little to no effect. Patient was reminded that there will be no answers to his abdmonial pain if he desnt do the prep and have the colonoscopy and endoscopy tomorrow. Patient continues to remain pessimistic and does not want any medication other than pain meds.
[2025-08-14 20:00] VITALS: BP 121/68; PULSE 75; RESP 18; TEMP 37.2; O2SAT 97
[2025-08-14 21:15] VITALS: BP 120/70; BP 121/70; PULSE 78
[2025-08-15] VITALS (8 sets, daily range): BP systolic 105–156; BP diastolic 65–93; PULSE 71–130; RESP 18–20; TEMP 36.1–37.8; O2SAT 92–94
--- NOTE | 2025-08-15 | ECG_ITS ---
Test Reason : tachy Blood Pressure : */* mmHG Vent. Rate : 108 BPM Atrial Rate : * BPM P-R Int : * ms QRS Dur : 90 ms QT Int : 370 ms P-R-T Axes : * 48 92 degrees QTcB Int : 495 ms Atrial fibrillation with rapid ventricular response Low voltage QRS Septal infarct (cited on or before 27-Apr-2024) Abnormal ECG When compared with ECG of 09-Aug-2025 13:28, Atrial fibrillation has replaced Sinus rhythm ST now depressed in Inferior leads Nonspecific T wave abnormality, improved in Anterolateral leads Referred By: Sadiq Quick Electronically Signed By: Carlos Baez
[2025-08-15 06:07] LABS: MANUAL DIFF FLAG NO
[2025-08-15 06:20] LABS: Hematocrit 30.3 % (42.0-52.0); Hemoglobin 10.1 g/dl (14.0-18.0); Imm Gran Abs Auto 0.05 X10*3/uL (0.00-0.03); Imm Gran Pct Auto 0.9 % (0.0-0.4); Lymphocytes Absolute Auto 0.9 X10*3/uL (1.2-4.9); Mean Corpuscular HGB Conc 33.3 g/dl (31.0-36.0); Mean Corpuscular Hemoglobin 29.6 pg (27.0-33.0); Mean Corpuscular Volume 88.9 fL (80.0-98.0); NRBC Abs Auto 0.000 X10*3/uL (0.0-0.012); NRBC Pct Auto 0.0 /100WBC (0.0-0.2); Platelet Count 161 X10*3/uL (160-400); Red Blood Count 3.41 X10*6/uL (4.60-5.80); White Blood Count 5.8 X10*3/uL (4.8-10.8)
[2025-08-15 06:33] LABS: Anion Gap 9 (12-20); Blood Urea Nitrogen 4 mg/dL (9-16); Calcium 8.3 mg/dL (8.4-10.2); Carbon Dioxide 30 mmol/L (22-29); Chloride 108 mmol/L (96-108); Creatinine Clr Calc Pharmacy 111.5; Estimated Glomerular Filt Rate > 60; Potassium 3.5 mmol/L (3.3-5.1); Sodium 143 mmol/L (135-145)
[2025-08-15] MEDS: 0.9 % Sodium Chloride Flush 3 ML SYRINGE IVFLUSH ×3 (08:02→21:04)
[2025-08-15] MEDS: NIFEdipine ER 60 MG TAB.ER.24 PO (08:03)
[2025-08-15] MEDS: metroNIDAZOLE/NS 500 MG/100 ML PIGGYBACK 100 MG IV ×2 (08:05→15:40)
--- NOTE | 2025-08-15 08:08 | HO.ANESPROP2 ---
HPI - Anesthesia Eval Consult details Narrative: 70 yr old male for EGD (refused colonoscopy prep) *Spoke to pt, he does not follow with cardiology IVDU: on methadone Combo ICD/pacemaker: per pt does not follow with cardiology, ICD placed several years ago 2/2 ventricular arrhythmia; ?last interrogated in 2022 On 2 liters nasal cannula, sats are low 90s Afib: xarelto on hold PMFSH Active Problems Active Problems: All Active Problems Mass of colon (Acute) Hyperchloremic metabolic acidosis (Acute) Acute lactic acidosis (Acute) Colitis (Acute) SIRS (systemic inflammatory response syndrome) (Acute) Occult blood positive stool (Acute) Abdominal pain (Acute) Diarrhea (Acute) Choledocholithiasis (Acute) Acute colitis (Acute) Acute proctitis (Acute) Opioid use disorder (Acute) PTSD (post-traumatic stress disorder) (Acute) MDD (major depressive disorder), recurrent episode (Acute) C. difficile colitis (Acute) ICD (implantable cardioverter-defibrillator) in place (Acute) Atrial fibrillation with RVR (Acute) Passive suicidal ideations (Acute) Personality disorder in adult (Acute) Chronic pain (Acute) Depressive disorder (Acute) Hypertension (Acute) Past Medical History Medical History MDD (major depressive disorder), recurrent episode, moderate Paroxysmal atrial fibrillation History of intravenous drug abuse Presence of combination internal cardiac defibrillator (ICD) and pacemaker Ventricular arrhythmia Opioid dependence Lumbar disc herniation Thoracic disc herniation Cervical disc herniation Opioid abuse Pacemaker HTN (hypertension) Functional capacity: independent ambulation Family History Family History Mother HTN (hypertension) CHF (congestive heart failure) Surgical History Surgical History History of spinal fusion History of hip replacement Social History Social History Household Members: Other Household Members Other:: lives with other roommates Housing: Other Housing Other:: bharat Do you presently have visiting nurse or other home services: No Alcohol intake: former Comment: sitter at bedside Patient Tobacco Use Status: Never used Tobacco e-Cigarette/Vaping Use: Never Used Second Hand Smoke Exposure: No Substance Use Type: Marijuana Currently Displaying Signs/Symptoms of Drug Intoxication Withdrawal: No Have you been hit, kicked, punched, or otherwise hurt by someone within the past year? If so, by whom?: No Do you feel safe in your current relationship?: No Current Relationship Is there a partner from a previous relationship who is making you feel unsafe now?: No Advance Directives: Yes Advance Directives on File: Yes Advance Directives Date on File: 04/29/24 Suicidal Behavior: History of suicide attemps Current/Past Psychiatric Disorders: Mood disorder and Substance abuse Barber Symptoms: Hopelessness and Worthlessness Access to Firearms: No Do you have a plan to hurt others: No Plan Recently lost weight without trying: No How much weight loss: Not applicable Eating poorly because of decreased appetite: No Nutrition screen score: 0 Nutrition Risks: No Nutritional Risk Poor oral hygiene: No service: No Current occupational status: retired and disabled Sexual orientation: Straight/Heterosexual Meds Allergies Allergy/AdvReac Type Severity Reaction Status Date / Time ergotamine (ERGOTAMINE) AdvReac Severe NAUSEA Verified 08/09/25 13:02 Active Medications: Current Medications Acetaminophen (Acetaminophen 325 Mg Tablet) 975 mg PO Q6H PRN PRN Reason: Pain, Mild 1-3,fever,headache Last Admin: 08/11/25 23:22 Dose: 975 mg Calcium Carbonate (Calcium Carbonate 750 Mg Tab.Chew) 750 mg PO Q4H PRN PRN Reason: Heartburn Ceftriaxone Sodium (Ceftriaxone Sodium 1 Gm Vial) 1 gm IVPUSH Q24H [facility] Last Admin: 08/14/25 08:03 Dose: 1 gm Clonidine HCl (Clonidine Hcl 0.1 Mg Tablet) 0.1 mg PO TID [facility]; Protocol Last Admin: 08/14/25 21:15 Dose: 0.1 mg Docusate Sodium (Docusate Sodium 100 Mg Capsule) 100 mg PO BID PRN PRN Reason: Constipation Duloxetine HCl (Duloxetine Hcl 30 Mg Capsule.Dr) 30 mg PO BID [facility] Last Admin: 08/14/25 21:14 Dose: 30 mg Hydroxyzine HCl (Hydroxyzine Hcl 25 Mg Tablet) 25 mg PO QID [facility] Last Admin: 08/14/25 21:14 Dose: 25 mg Metronidazole (Flagyl) 500 mg in 100 mls @ 100 mls/hr IV Q8H [facility] Last Infusion: 08/15/25 00:33 Dose: Infused Lisinopril (Lisinopril 5 Mg Tablet) 5 mg PO DAILY [facility]; Protocol Last Admin: 08/14/25 08:02 Dose: 5 mg Loperamide HCl (Loperamide Hcl 2 Mg Capsule) 2 mg PO Q4H PRN PRN Reason: Diarrhea Last Admin: 08/11/25 15:58 Dose: 2 mg Magnesium Hydroxide (Milk Of Magnesia 30 Ml Oral.Susp) 30 ml PO DAILY PRN PRN Reason: Constipation Melatonin (Melatonin 3 Mg Tablet) 6 mg PO BEDTIME PRN PRN Reason: Insomnia Last Admin: 08/09/25 22:11 Dose: 6 mg Methadone HCl (Methadone Hcl 10 Mg Tablet) 10 mg PO BID [facility] Last Admin: 08/14/25 21:15 Dose: 10 mg Metoprolol Tartrate (Metoprolol Tartrate 50 Mg Tablet) 50 mg PO BID [facility]; Protocol Last Admin: 08/14/25 21:15 Dose: 50 mg Nifedipine (Nifedipine Er 60 Mg Tab.Er.24) 60 mg PO DAILY [facility]; Protocol Last Admin: 08/14/25 08:02 Dose: 60 mg Ondansetron HCl (Ondansetron Hcl 4 Mg/2 Ml Vial) 4 mg IVPUSH Q8H PRN PRN Reason: Nausea and Vomiting Last Admin: 08/13/25 11:30 Dose: 4 mg Sodium Biphosphate/Sodium Phosphate (Sodium Phosphate,Leake-Dibasic 133 Ml Enema) 133 ml DE ONCE PRN PRN Reason: Poor Colonoscopy Prep Results Sodium Chloride (0.9 % Sodium Chloride Flush 3 Ml Syringe) 3 ml IVFLUSH QSHIFT [facility] Last Admin: 08/14/25 21:16 Dose: 3 ml Trazodone HCl (Trazodone Hcl 50 Mg Tablet) 50 mg PO BEDTIME [facility] Last Admin: 08/14/25 21:15 Dose: 50 mg Home Medications ?Medication ?Instructions ?Recorded ?Confirmed ?Last Taken ?Type hydroxyzine HCl 25 mg tablet 25 mg PO QID anxiety/insomnia 12/12/23 08/09/25 Unknown History rivaroxaban 20 mg tablet (Xarelto) 20 mg PO DAILY@1700 07/04/24 08/09/25 06/13/25 History duloxetine 30 mg capsule,delayed 30 mg PO BID 03/23/25 08/09/25 06/14/25 History release acetaminophen 650 mg 650 mg PO Q6H PRN Fever Or Pain 08/09/25 08/09/25 Unknown History tablet,extended release clonidine HCl 0.1 mg tablet 0.1 mg PO TID 08/09/25 08/09/25 Unknown History docusate sodium 100 mg capsule 100 mg PO BID PRN Constipation 08/09/25 08/09/25 Unknown History (Colace) methadone 10 mg tablet 10 mg PO BID 08/09/25 08/09/25 Unknown History nifedipine 60 mg tablet,extended 60 mg PO DAILY 08/09/25 08/09/25 Unknown History release 24 hr oxycodone 15 mg tablet 15 mg PO QID PRN Pain 08/09/25 08/09/25 Unknown History polyethylene glycol 3350 17 17 g PO DAILY PRN Constipation 08/09/25 08/09/25 Unknown History gram/dose oral powder (Miralax) sennosides 8.6 mg tablet (senna) 17.2 mg PO BID PRN Constipation 08/09/25 08/09/25 Unknown History Exam Height,Weight and Vital Signs: Height 6 ft Weight 68.7 kg Last Vital Signs Temp 99.1 F 08/15/25 07:31 Pulse 76 08/15/25 07:31 Resp 20 08/15/25 07:31 BP 121/67 08/15/25 07:31 Pulse Ox 92 08/15/25 07:31 O2 Del Method Nasal Cannula 08/15/25 07:31 O2 Flow Rate 2 08/15/25 07:31 Pertinent Lab Results Pertinent Lab Results: Laboratory Tests 08/09/25 08/09/25 08/09/25 13:42 14:27 15:11 WBC 14.0 H RBC 5.39 Hgb 15.9 Hct 46.4 MCV 86.1 MCH 29.5 MCHC 34.3 RDW 12.8 Plt Count 261 D MPV 10.6 Immature Gran % (Auto) 0.9 H Neut % (Auto) 76.2 H Lymph % (Auto) 17.2 L Leake % (Auto) 2.7 Eos % (Auto) 2.6 Baso % (Auto) 0.4 Lymph # (Auto) 2.4 Leake # (Auto) 0.4 Eos # (Auto) 0.4 Baso # (Auto) 0.1 Abs Immat Gran (auto) 0.13 H Absolute Neuts (auto) 10.6 H Absolute Nucleated RBC 0.000 Nucleated RBC % (auto) 0.0 Neutrophils % (Manual) Band Neutrophils % Lymphocytes % (Manual) Monocytes % (Manual) Eosinophils % (Manual) Abs Neuts (Manual) Lymphocytes # (Manual) Monocytes # (Manual) Eosinophils # (Manual) Toxic Vacuolation Platelet Estimate Plt Morphology Comment RBC Morphology Polychromasia Hypochromasia Hold Purple Top SEE NOTE PT INR Sodium 141 Potassium 3.7 Chloride 113 H Carbon Dioxide 18 L Anion Gap 14 BUN 19 H Creatinine 1.16 Estim Creat Clear Calc 64.1 Estimated GFR > 60 Random Glucose 144 H Fasting Glucose Cancelled Lactic Acid 5.4 H* Lactic Acid F/U @ 2Hr Lactic Acid F/U @ 4Hr Calcium 8.6 D Magnesium Total Bilirubin 0.7 Direct Bilirubin AST 61 H ALT 27 Alkaline Phosphatase 94 Troponin I High Sens 4.8 Total Protein 7.0 Albumin 3.8 Lipase 25 Alpha Fetoprotein Carcinoembryonic Ag Stool Occult Blood Stl C. cayetanensis PCR Not Detected Stool Rotavirus A PCR Not Detected Stl Adenov F 40/41 PCR Not Detected Stool Astrovirus (PCR) Not Detected Stool Campylobacter PCR Not Detected Stool Cryptosporidium PCR Not Detected Stl Sh Tox Pr E STEC PCR Not Detected Stool E coli O157 PCR Not applicable Stl Enterotoxigenic E PCR Not Detected Stool EPEC (PCR) Not Detected Stool EAEC (PCR) Not Detected Stl E. histolytica PCR Not Detected Stool Giardia Lamblia PCR Not Detected Stl P. shigelloides PCR Not Detected Stool Salmonella PCR Not Detected Stool Sapovirus (PCR) Not Detected Stl Shigella/EIEC PCR Not Detected St Y.enterocolitica PCR Not Detected Stool Vibrio (PCR) Not Detected Stl Vibrio cholerae PCR Not Detected Stl Norovirus GI/GII PCR Not Detected C. difficile Tox B Gene NEGATIVE Blood Type Antibody Screen 08/09/25 08/09/25 08/09/25 16:29 16:31 16:39 WBC RBC Hgb 14.9 Hct 43.4 MCV MCH MCHC RDW Plt Count MPV Immature Gran % (Auto) Neut % (Auto) Lymph % (Auto) Leake % (Auto) Eos % (Auto) Baso % (Auto) Lymph # (Auto) Leake # (Auto) Eos # (Auto) Baso # (Auto) Abs Immat Gran (auto) Absolute Neuts (auto) Absolute Nucleated RBC Nucleated RBC % (auto) Neutrophils % (Manual) Band Neutrophils % Lymphocytes % (Manual) Monocytes % (Manual) Eosinophils % (Manual) Abs Neuts (Manual) Lymphocytes # (Manual) Monocytes # (Manual) Eosinophils # (Manual) Toxic Vacuolation Platelet Estimate Plt Morphology Comment RBC Morphology Polychromasia Hypochromasia Hold Purple Top PT INR Sodium Potassium Chloride Carbon Dioxide Anion Gap BUN Creatinine Estim Creat Clear Calc Estimated GFR Random Glucose Fasting Glucose Lactic Acid Lactic Acid F/U @ 2Hr 4.0 H* Lactic Acid F/U @ 4Hr Calcium Magnesium Total Bilirubin Direct Bilirubin AST ALT Alkaline Phosphatase Troponin I High Sens Total Protein Albumin Lipase Alpha Fetoprotein Carcinoembryonic Ag Stool Occult Blood POSITIVE Stl C. cayetanensis PCR Stool Rotavirus A PCR Stl Adenov F 40/41 PCR Stool Astrovirus (PCR) Stool Campylobacter PCR Stool Cryptosporidium PCR Stl Sh Tox Pr E STEC PCR Stool E coli O157 PCR Stl Enterotoxigenic E PCR Stool EPEC (PCR) Stool EAEC (PCR) Stl E. histolytica PCR Stool Giardia Lamblia PCR Stl P. shigelloides PCR Stool Salmonella PCR Stool Sapovirus (PCR) Stl Shigella/EIEC PCR St Y.enterocolitica PCR Stool Vibrio (PCR) Stl Vibrio cholerae PCR Stl Norovirus GI/GII PCR C. difficile Tox B Gene Blood Type O Negative Antibody Screen NEGATIVE 08/09/25 08/09/25 08/10/25 19:01 21:59 00:08 WBC RBC Hgb Hct MCV MCH MCHC RDW Plt Count MPV Immature Gran % (Auto) Neut % (Auto) Lymph % (Auto) Leake % (Auto) Eos % (Auto) Baso % (Auto) Lymph # (Auto) Leake # (Auto) Eos # (Auto) Baso # (Auto) Abs Immat Gran (auto) Absolute Neuts (auto) Absolute Nucleated RBC Nucleated RBC % (auto) Neutrophils % (Manual) Band Neutrophils % Lymphocytes % (Manual) Monocytes % (Manual) Eosinophils % (Manual) Abs Neuts (Manual) Lymphocytes # (Manual) Monocytes # (Manual) Eosinophils # (Manual) Toxic Vacuolation Platelet Estimate Plt Morphology Comment RBC Morphology Polychromasia Hypochromasia Hold Purple Top PT INR Sodium Potassium Chloride Carbon Dioxide Anion Gap BUN Creatinine Estim Creat Clear Calc Estimated GFR Random Glucose Fasting Glucose Lactic Acid 6.6 H* Lactic Acid F/U @ 2Hr Lactic Acid F/U @ 4Hr 4.9 H* Calcium Magnesium Total Bilirubin Direct Bilirubin AST ALT Alkaline Phosphatase Troponin I High Sens Total Protein Albumin Lipase Alpha Fetoprotein 1.6 Carcinoembryonic Ag 20.30 Stool Occult Blood Stl C. cayetanensis PCR Stool Rotavirus A PCR Stl Adenov F 40/41 PCR Stool Astrovirus (PCR) Stool Campylobacter PCR Stool Cryptosporidium PCR Stl Sh Tox Pr E STEC PCR Stool E coli O157 PCR Stl Enterotoxigenic E PCR Stool EPEC (PCR) Stool EAEC (PCR) Stl E. histolytica PCR Stool Giardia Lamblia PCR Stl P. shigelloides PCR Stool Salmonella PCR Stool Sapovirus (PCR) Stl Shigella/EIEC PCR St Y.enterocolitica PCR Stool Vibrio (PCR) Stl Vibrio cholerae PCR Stl Norovirus GI/GII PCR C. difficile Tox B Gene Blood Type Antibody Screen 08/10/25 08/10/25 08/11/25 04:57 08:30 05:48 WBC 17.7 H Cancelled RBC 4.82 Hgb 13.9 L Hct 41.9 L MCV 86.9 MCH 28.8 MCHC 33.2 RDW 13.1 Plt Count 191 D MPV 10.3 Immature Gran % (Auto) Cancelled Neut % (Auto) Cancelled Lymph % (Auto) Cancelled Leake % (Auto) Cancelled Eos % (Auto) Cancelled Baso % (Auto) Cancelled Lymph # (Auto) Cancelled Leake # (Auto) Cancelled Eos # (Auto) Cancelled Baso # (Auto) Cancelled Abs Immat Gran (auto) Cancelled Absolute Neuts (auto) Cancelled Absolute Nucleated RBC 0.000 Nucleated RBC % (auto) 0.0 Neutrophils % (Manual) 74 H Band Neutrophils % 17 H Lymphocytes % (Manual) 7 L Monocytes % (Manual) 2 Eosinophils % (Manual) Abs Neuts (Manual) 16.1 H Lymphocytes # (Manual) 1.2 Monocytes # (Manual) 0.4 Eosinophils # (Manual) Toxic Vacuolation PRESENT Platelet Estimate NORMAL Plt Morphology Comment NORMAL RBC Morphology NORMAL Polychromasia Hypochromasia Hold Purple Top PT INR Sodium 139 Potassium 4.4 Chloride 111 H Carbon Dioxide 19 L Anion Gap 13 BUN 22 H Creatinine 1.15 Estim Creat Clear Calc 57.2 Estimated GFR > 60 Random Glucose 111 Fasting Glucose Lactic Acid Lactic Acid F/U @ 2Hr 3.0 H* Lactic Acid F/U @ 4Hr 3.1 H* Calcium 8.3 L Magnesium 1.7 Total Bilirubin 0.6 Direct Bilirubin AST 43 H ALT 20 Alkaline Phosphatase 61 Troponin I High Sens Total Protein 5.8 L Albumin 3.0 L Lipase Alpha Fetoprotein Carcinoembryonic Ag Stool Occult Blood Stl C. cayetanensis PCR Stool Rotavirus A PCR Stl Adenov F 40/41 PCR Stool Astrovirus (PCR) Stool Campylobacter PCR Stool Cryptosporidium PCR Stl Sh Tox Pr E STEC PCR Stool E coli O157 PCR Stl Enterotoxigenic E PCR Stool EPEC (PCR) Stool EAEC (PCR) Stl E. histolytica PCR Stool Giardia Lamblia PCR Stl P. shigelloides PCR Stool Salmonella PCR Stool Sapovirus (PCR) Stl Shigella/EIEC PCR St Y.enterocolitica PCR Stool Vibrio (PCR) Stl Vibrio cholerae PCR Stl Norovirus GI/GII PCR C. difficile Tox B Gene Blood Type Antibody Screen 08/11/25 08/11/25 08/11/25 05:48 05:48 05:48 WBC 10.8 RBC Cancelled 3.81 L D Hgb Cancelled 10.9 L D Hct Cancelled MCV MCH MCHC RDW Plt Count MPV Immature Gran % (Auto) Neut % (Auto) Lymph % (Auto) Leake % (Auto) Eos % (Auto) Baso % (Auto) Lymph # (Auto) Leake # (Auto) Eos # (Auto) Baso # (Auto) Abs Immat Gran (auto) Absolute Neuts (auto) Absolute Nucleated RBC Nucleated RBC % (auto) Neutrophils % (Manual) Band Neutrophils % Lymphocytes % (Manual) Monocytes % (Manual) Eosinophils % (Manual) Abs Neuts (Manual) Lymphocytes # (Manual) Monocytes # (Manual) Eosinophils # (Manual) Toxic Vacuolation Platelet Estimate Plt Morphology Comment RBC Morphology Polychromasia Hypochromasia Hold Purple Top PT INR Sodium Potassium Chloride Carbon Dioxide Anion Gap BUN Creatinine Estim Creat Clear Calc Estimated GFR Random Glucose Fasting Glucose Lactic Acid Lactic Acid F/U @ 2Hr Lactic Acid F/U @ 4Hr Calcium Magnesium Total Bilirubin Direct Bilirubin AST ALT Alkaline Phosphatase Troponin I High Sens Total Protein Albumin Lipase Alpha Fetoprotein Carcinoembryonic Ag Stool Occult Blood Stl C. cayetanensis PCR Stool Rotavirus A PCR Stl Adenov F 40/ PCR Stool Astrovirus (PCR) Stool Campylobacter PCR Stool Cryptosporidium PCR Stl Sh Tox Pr E STEC PCR Stool E coli O157 PCR Stl Enterotoxigenic E PCR Stool EPEC (PCR) Stool EAEC (PCR) Stl E. histolytica PCR Stool Giardia Lamblia PCR Stl P. shigelloides PCR Stool Salmonella PCR Stool Sapovirus (PCR) Stl Shigella/EIEC PCR St Y.enterocolitica PCR Stool Vibrio (PCR) Stl Vibrio cholerae PCR Stl Norovirus GI/GII PCR C. difficile Tox B Gene Blood Type Antibody Screen 08/11/25 08/11/25 08/11/25 05:48 05:48 05:48 WBC RBC Hgb Hct 33.3 L D MCV Cancelled 87.4 MCH Cancelled 28.6 MCHC Cancelled RDW Plt Count MPV Immature Gran % (Auto) Neut % (Auto) Lymph % (Auto) Leake % (Auto) Eos % (Auto) Baso % (Auto) Lymph # (Auto) Leake # (Auto) Eos # (Auto) Baso # (Auto) Abs Immat Gran (auto) Absolute Neuts (auto) Absolute Nucleated RBC Nucleated RBC % (auto) Neutrophils % (Manual) Band Neutrophils % Lymphocytes % (Manual) Monocytes % (Manual) Eosinophils % (Manual) Abs Neuts (Manual) Lymphocytes # (Manual) Monocytes # (Manual) Eosinophils # (Manual) Toxic Vacuolation Platelet Estimate Plt Morphology Comment RBC Morphology Polychromasia Hypochromasia Hold Purple Top PT INR Sodium Potassium Chloride Carbon Dioxide Anion Gap BUN Creatinine Estim Creat Clear Calc Estimated GFR Random Glucose Fasting Glucose Lactic Acid Lactic Acid F/U @ 2Hr Lactic Acid F/U @ 4Hr Calcium Magnesium Total Bilirubin Direct Bilirubin AST ALT Alkaline Phosphatase Troponin I High Sens Total Protein Albumin Lipase Alpha Fetoprotein Carcinoembryonic Ag Stool Occult Blood Stl C. cayetanensis PCR Stool Rotavirus A PCR Stl Adenov F 40 PCR Stool Astrovirus (PCR) Stool Campylobacter PCR Stool Cryptosporidium PCR Stl Sh Tox Pr E STEC PCR Stool E coli O157 PCR Stl Enterotoxigenic E PCR Stool EPEC (PCR) Stool EAEC (PCR) Stl E. histolytica PCR Stool Giardia Lamblia PCR Stl P. shigelloides PCR Stool Salmonella PCR Stool Sapovirus (PCR) Stl Shigella/EIEC PCR St Y.enterocolitica PCR Stool Vibrio (PCR) Stl Vibrio cholerae PCR Stl Norovirus GI/GII PCR C. difficile Tox B Gene Blood Type Antibody Screen 08/11/25 08/11/25 08/11/25 05:48 05:48 05:48 WBC RBC Hgb Hct MCV MCH MCHC 32.7 RDW Cancelled 13.5 Plt Count Cancelled 123 L D MPV Cancelled Immature Gran % (Auto) Neut % (Auto) Lymph % (Auto) Leake % (Auto) Eos % (Auto) Baso % (Auto) Lymph # (Auto) Leake # (Auto) Eos # (Auto) Baso # (Auto) Abs Immat Gran (auto) Absolute Neuts (auto) Absolute Nucleated RBC Nucleated RBC % (auto) Neutrophils % (Manual) Band Neutrophils % Lymphocytes % (Manual) Monocytes % (Manual) Eosinophils % (Manual) Abs Neuts (Manual) Lymphocytes # (Manual) Monocytes # (Manual) Eosinophils # (Manual) Toxic Vacuolation Platelet Estimate Plt Morphology Comment RBC Morphology Polychromasia Hypochromasia Hold Purple Top PT INR Sodium Potassium Chloride Carbon Dioxide Anion Gap BUN Creatinine Estim Creat Clear Calc Estimated GFR Random Glucose Fasting Glucose Lactic Acid Lactic Acid F/U @ 2Hr Lactic Acid F/U @ 4Hr Calcium Magnesium Total Bilirubin Direct Bilirubin AST ALT Alkaline Phosphatase Troponin I High Sens Total Protein Albumin Lipase Alpha Fetoprotein Carcinoembryonic Ag Stool Occult Blood Stl C. cayetanensis PCR Stool Rotavirus A PCR Stl Adenov F 40/41 PCR Stool Astrovirus (PCR) Stool Campylobacter PCR Stool Cryptosporidium PCR Stl Sh Tox Pr E STEC PCR Stool E coli O157 PCR Stl Enterotoxigenic E PCR Stool EPEC (PCR) Stool EAEC (PCR) Stl E. histolytica PCR Stool Giardia Lamblia PCR Stl P. shigelloides PCR Stool Salmonella PCR Stool Sapovirus (PCR) Stl Shigella/EIEC PCR St Y.enterocolitica PCR Stool Vibrio (PCR) Stl Vibrio cholerae PCR Stl Norovirus GI/GII PCR C. difficile Tox B Gene Blood Type Antibody Screen 08/11/25 08/11/25 08/11/25 05:48 05:48 05:48 WBC RBC Hgb Hct MCV MCH MCHC RDW Plt Count MPV 11.1 Immature Gran % (Auto) 0.7 H Neut % (Auto) 80.2 H Lymph % (Auto) 11.8 L Leake % (Auto) 6.7 Eos % (Auto) 0.4 Baso % (Auto) 0.2 Lymph # (Auto) 1.3 Leake # (Auto) 0.7 Eos # (Auto) 0.0 Baso # (Auto) 0.0 Abs Immat Gran (auto) 0.07 H Absolute Neuts (auto) 8.6 H Absolute Nucleated RBC Cancelled 0.020 H Nucleated RBC % (auto) Cancelled 0.2 Neutrophils % (Manual) Band Neutrophils % Lymphocytes % (Manual) Monocytes % (Manual) Eosinophils % (Manual) Abs Neuts (Manual) Lymphocytes # (Manual) Monocytes # (Manual) Eosinophils # (Manual) Toxic Vacuolation Platelet Estimate Plt Morphology Comment RBC Morphology Polychromasia Hypochromasia Hold Purple Top PT 14.3 H INR 1.2 H Sodium 136 Potassium 3.9 Chloride 110 H Carbon Dioxide 21 L Anion Gap 9 L BUN 19 H Creatinine 0.94 Estim Creat Clear Calc 70.0 Estimated GFR > 60 Random Glucose 77 Fasting Glucose Lactic Acid Lactic Acid F/U @ 2Hr Lactic Acid F/U @ 4Hr Calcium 8.3 L Magnesium 1.8 Total Bilirubin 0.5 Direct Bilirubin AST 40 H ALT 9 Alkaline Phosphatase 47 Troponin I High Sens Total Protein 5.4 L Albumin 2.8 L Lipase Alpha Fetoprotein Carcinoembryonic Ag Stool Occult Blood Stl C. cayetanensis PCR Stool Rotavirus A PCR Stl Adenov F 40/41 PCR Stool Astrovirus (PCR) Stool Campylobacter PCR Stool Cryptosporidium PCR Stl Sh Tox Pr E STEC PCR Stool E coli O157 PCR Stl Enterotoxigenic E PCR Stool EPEC (PCR) Stool EAEC (PCR) Stl E. histolytica PCR Stool Giardia Lamblia PCR Stl P. shigelloides PCR Stool Salmonella PCR Stool Sapovirus (PCR) Stl Shigella/EIEC PCR St Y.enterocolitica PCR Stool Vibrio (PCR) Stl Vibrio cholerae PCR Stl Norovirus GI/GII PCR C. difficile Tox B Gene Blood Type Antibody Screen 08/12/25 08/13/25 08/14/25 06:11 06:21 05:18 WBC 5.4 7.4 5.6 RBC 3.20 L 3.62 L 3.21 L Hgb 9.4 L 10.5 L 9.3 L Hct 28.3 L 31.8 L 28.5 L MCV 88.4 87.8 88.8 MCH 29.4 29.0 29.0 MCHC 33.2 33.0 32.6 RDW 13.4 13.2 13.2 Plt Count 91 L D 130 L D 116 L MPV 10.9 10.4 10.5 Immature Gran % (Auto) Cancelled Neut % (Auto) Cancelled Lymph % (Auto) Cancelled Leake % (Auto) Cancelled Eos % (Auto) Cancelled Baso % (Auto) Cancelled Lymph # (Auto) Cancelled Leake # (Auto) Cancelled Eos # (Auto) Cancelled Baso # (Auto) Cancelled Abs Immat Gran (auto) Cancelled Absolute Neuts (auto) Cancelled Absolute Nucleated RBC 0.000 0.000 0.000 Nucleated RBC % (auto) 0.0 0.0 0.0 Neutrophils % (Manual) 76 H Band Neutrophils % 3 Lymphocytes % (Manual) 17 L Monocytes % (Manual) 2 Eosinophils % (Manual) 2 Abs Neuts (Manual) 4.3 Lymphocytes # (Manual) 0.9 L Monocytes # (Manual) 0.1 Eosinophils # (Manual) 0.1 Toxic Vacuolation Platelet Estimate DECREASED Plt Morphology Comment NORMAL RBC Morphology NOTED Polychromasia 1+ (0-2) Hypochromasia 1+ (5-14) Hold Purple Top PT INR Sodium 139 138 140 Potassium 3.8 3.3 3.3 Chloride 112 H 107 110 H Carbon Dioxide 24 25 23 Anion Gap 7 L 9 L 10 L BUN 13 8 L 5 L Creatinine 0.77 0.74 0.68 Estim Creat Clear Calc 85.5 88.9 96.8 Estimated GFR > 60 > 60 > 60 Random Glucose 87 100 96 Fasting Glucose Lactic Acid Lactic Acid F/U @ 2Hr Lactic Acid F/U @ 4Hr Calcium 7.9 L 8.0 L 8.0 L Magnesium 1.7 1.8 Total Bilirubin 0.3 0.3 Direct Bilirubin 0.1 AST 39 H 31 ALT 6 8 Alkaline Phosphatase 44 48 Troponin I High Sens Total Protein 4.8 L 5.4 L Albumin 2.5 L 3.0 L Lipase Alpha Fetoprotein Carcinoembryonic Ag Stool Occult Blood Stl C. cayetanensis PCR Stool Rotavirus A PCR Stl Adenov F 40/41 PCR Stool Astrovirus (PCR) Stool Campylobacter PCR Stool Cryptosporidium PCR Stl Sh Tox Pr E STEC PCR Stool E coli O157 PCR Stl Enterotoxigenic E PCR Stool EPEC (PCR) Stool EAEC (PCR) Stl E. histolytica PCR Stool Giardia Lamblia PCR Stl P. shigelloides PCR Stool Salmonella PCR Stool Sapovirus (PCR) Stl Shigella/EIEC PCR St Y.enterocolitica PCR Stool Vibrio (PCR) Stl Vibrio cholerae PCR Stl Norovirus GI/GII PCR C. difficile Tox B Gene Blood Type Antibody Screen 08/15/25 05:29 WBC 5.8 RBC 3.41 L Hgb 10.1 L Hct 30.3 L MCV 88.9 MCH 29.6 MCHC 33.3 RDW 13.4 Plt Count 161 D MPV 10.6 Immature Gran % (Auto) 0.9 H Neut % (Auto) 64.8 Lymph % (Auto) 16.2 L Leake % (Auto) 13.3 H Eos % (Auto) 4.3 H Baso % (Auto) 0.5 Lymph # (Auto) 0.9 L Leake # (Auto) 0.8 Eos # (Auto) 0.3 Baso # (Auto) 0.0 Abs Immat Gran (auto) 0.05 H Absolute Neuts (auto) 3.8 Absolute Nucleated RBC 0.000 Nucleated RBC % (auto) 0.0 Neutrophils % (Manual) Band Neutrophils % Lymphocytes % (Manual) Monocytes % (Manual) Eosinophils % (Manual) Abs Neuts (Manual) Lymphocytes # (Manual) Monocytes # (Manual) Eosinophils # (Manual) Toxic Vacuolation Platelet Estimate Plt Morphology Comment RBC Morphology Polychromasia Hypochromasia Hold Purple Top PT INR Sodium 143 Potassium 3.5 Chloride 108 Carbon Dioxide 30 H Anion Gap 9 L BUN 4 L Creatinine 0.59 Estim Creat Clear Calc 111.5 Estimated GFR > 60 Random Glucose 94 Fasting Glucose Lactic Acid Lactic Acid F/U @ 2Hr Lactic Acid F/U @ 4Hr Calcium 8.3 L Magnesium Total Bilirubin Direct Bilirubin AST ALT Alkaline Phosphatase Troponin I High Sens Total Protein Albumin Lipase Alpha Fetoprotein Carcinoembryonic Ag Stool Occult Blood Stl C. cayetanensis PCR Stool Rotavirus A PCR Stl Adenov F PCR Stool Astrovirus (PCR) Stool Campylobacter PCR Stool Cryptosporidium PCR Stl Sh Tox Pr E STEC PCR Stool E coli O157 PCR Stl Enterotoxigenic E PCR Stool EPEC (PCR) Stool EAEC (PCR) Stl E. histolytica PCR Stool Giardia Lamblia PCR Stl P. shigelloides PCR Stool Salmonella PCR Stool Sapovirus (PCR) Stl Shigella/EIEC PCR St Y.enterocolitica PCR Stool Vibrio (PCR) Stl Vibrio cholerae PCR Stl Norovirus GI/GII PCR C. difficile Tox B Gene Blood Type Antibody Screen Narrative Narrative: EKG 08/09/25 Vent. Rate : 75 BPM Atrial Rate : 75 BPM P-R Int : 186 ms QRS Dur : 92 ms QT Int : 410 ms P-R-T Axes : 82 39 93 degrees QTcB Int : 457 ms Electronic atrial pacemaker with sinus arrhythmia with frequent Premature ventricular complexes Septal infarct (cited on or before 27-Apr-2024) Abnormal ECG When compared with ECG of 15-Jun-2025 07:34, Premature ventricular complexes are now Present ECHO 2022 Conclusions: - The left ventricular systolic function is mildly decreased. Visually estimated LVEF about 50%. - Moderately increased right ventricular cavity size. - There is moderate calcification of the aortic valve. There is mild aortic valve stenosis. - There is moderate mitral annular calcification. Airway Loose/Missing/Broken Teeth: Yes and Upper (M)
--- NOTE | 2025-08-15 08:16 | P.PNIM_ITS ---
Subjective Subjective Date of Service: 08/15/25 Interval History: still with SI abd discomfort Physical Exam 2 Exam: Exam: General: AO X2, acute distress Resp: CTA bilateral, no accessory muscles used CVS: S1,S2,RRR GI: soft, tender, non distended Neuro: motor grossly intact, alert Vital Signs: Vital Signs: Last Vital Signs Temp 99.1 F 08/15/25 07:31 Pulse 76 08/15/25 07:31 Resp 20 08/15/25 07:31 BP 121/67 08/15/25 08:03 Pulse Ox 92 08/15/25 07:31 O2 Del Method Nasal Cannula 08/15/25 07:31 O2 Flow Rate 2 08/15/25 07:31 BMI result Body Mass Index 20.5 Objective Data Active Medications Acetaminophen (Acetaminophen 325 Mg Tablet) 975 mg PO Q6H PRN PRN Reason: Pain, Mild 1-3,fever,headache Last Admin: 08/11/25 23:22 Dose: 975 mg Documented By: MIKALA Calcium Carbonate (Calcium Carbonate 750 Mg Tab.Chew) 750 mg PO Q4H PRN PRN Reason: Heartburn Ceftriaxone Sodium (Ceftriaxone Sodium 1 Gm Vial) 1 gm IVPUSH Q24H [facility] Last Admin: 08/15/25 08:04 Dose: 1 gm Documented By: USAMA Clonidine HCl (Clonidine Hcl 0.1 Mg Tablet) 0.1 mg PO TID [facility]; Protocol Last Admin: 08/15/25 08:03 Dose: 0.1 mg Documented By: USAMA Docusate Sodium (Docusate Sodium 100 Mg Capsule) 100 mg PO BID PRN PRN Reason: Constipation Duloxetine HCl (Duloxetine Hcl 30 Mg Capsule.Dr) 30 mg PO BID [facility] Last Admin: 08/15/25 08:02 Dose: 30 mg Documented By: USAMA Hydroxyzine HCl (Hydroxyzine Hcl 25 Mg Tablet) 25 mg PO QID [facility] Last Admin: 08/15/25 08:03 Dose: 25 mg Documented By: USAMA Metronidazole (Flagyl) 500 mg in 100 mls @ 100 mls/hr IV Q8H [facility] Last Admin: 08/15/25 08:05 Dose: 100 mls/hr Documented By: USAMA Lisinopril (Lisinopril 5 Mg Tablet) 5 mg PO DAILY [facility]; Protocol Last Admin: 08/15/25 08:02 Dose: 5 mg Documented By: USAMA Loperamide HCl (Loperamide Hcl 2 Mg Capsule) 2 mg PO Q4H PRN PRN Reason: Diarrhea Last Admin: 08/11/25 15:58 Dose: 2 mg Documented By: PASTORA Magnesium Hydroxide (Milk Of Magnesia 30 Ml Oral.Susp) 30 ml PO DAILY PRN PRN Reason: Constipation Melatonin (Melatonin 3 Mg Tablet) 6 mg PO BEDTIME PRN PRN Reason: Insomnia Last Admin: 08/09/25 22:11 Dose: 6 mg Documented By: BRAD Methadone HCl (Methadone Hcl 10 Mg Tablet) 10 mg PO BID [facility] Last Admin: 08/15/25 08:03 Dose: 10 mg Documented By: USAMA Metoprolol Tartrate (Metoprolol Tartrate 50 Mg Tablet) 50 mg PO BID [facility]; Protocol Last Admin: 08/15/25 08:03 Dose: 50 mg Documented By: USAMA Nifedipine (Nifedipine Er 60 Mg Tab.Er.24) 60 mg PO DAILY [facility]; Protocol Last Admin: 08/15/25 08:03 Dose: 60 mg Documented By: USAMA Ondansetron HCl (Ondansetron Hcl 4 Mg/2 Ml Vial) 4 mg IVPUSH Q8H PRN PRN Reason: Nausea and Vomiting Last Admin: 08/13/25 11:30 Dose: 4 mg Documented By: RAVEN Sodium Biphosphate/Sodium Phosphate (Sodium Phosphate,Mercer-Dibasic 133 Ml Enema) 133 ml ME ONCE PRN PRN Reason: Poor Colonoscopy Prep Results Sodium Chloride (0.9 % Sodium Chloride Flush 3 Ml Syringe) 3 ml IVFLUSH QSHIFT [facility] Last Admin: 08/15/25 08:02 Dose: 3 ml Documented By: USAMA Trazodone HCl (Trazodone Hcl 50 Mg Tablet) 50 mg PO BEDTIME [facility] Last Admin: 08/14/25 21:15 Dose: 50 mg Documented By: CASTILM Labs 08/15/25 05:29 08/15/25 05:29 Labs: Laboratory Results - last 24 hr 08/09/25 08/15/25 21:59 05:29 MCV 88.9 MCH 29.6 MCHC 33.3 RDW 13.4 Plt Count 161 D MPV 10.6 Immature Gran % (Auto) 0.9 H Neut % (Auto) 64.8 Lymph % (Auto) 16.2 L Mercer % (Auto) 13.3 H Eos % (Auto) 4.3 H Baso % (Auto) 0.5 Lymph # (Auto) 0.9 L Mercer # (Auto) 0.8 Eos # (Auto) 0.3 Baso # (Auto) 0.0 Abs Immat Gran (auto) 0.05 H Absolute Neuts (auto) 3.8 Absolute Nucleated RBC 0.000 Nucleated RBC % (auto) 0.0 Anion Gap 9 L Estim Creat Clear Calc 111.5 Estimated GFR > 60 Random Glucose 94 Calcium 8.3 L Alpha Fetoprotein 1.6 Microbiology Microbiology Results: Microbiology 08/09/25 14:12 Blood Culture - Final Blood - Venous No growth after 5 days. 08/09/25 14:11 Blood Culture - Final Blood - Venous No growth after 5 days. Assessment and Plan (1) Acute colitis: Status: Acute Plan 70M PMH mood disorder, pafib on xarelto, IVDU, AICD, HTN, presented with abd pain Sepsis due to acute colitis stool negative continue rocephin/flagyl acute thrombocytopenia possible due to zosyn, changed to rocephin/flagyl, improving possible splenic flexure colon mass and possible pancreatic mass gi appreciated - plan for scope 08/15 unable to get MRCP due to lack of info on AICD acute hypoxic resp failure wean o2 suicidal ideation sitter care team prior to discharge opiate dependence methadone htn nifedipine, clonidine, lopressor pafib lopressor, hold xarelto for possible gi bleed dvt prophylaxis - mechanical due to gi bleed full code reason for continued hospitalization:plan for scope, hypoxia Quality Stroke Does the patient have a stroke diagnosis?: No VTE Prior VTE?: No VTE Risk Level:: Medical - moderate - high VTE Device Contraindication: N/A - Device Ordered VTE Drug Contraindication: Treatment Not Indicated
--- NOTE | 2025-08-15 11:45 | PM.EVENT ---
Event Note Date of Service: 08/15/25 Event Note: patient did not prep for colonscopy and is refusing EGD, will start diet wants to leave AMA, but still with SI, will get care team eval Time Spent With Patient Time: Total time managing care of this patient today ____ minutes.
--- NOTE | 2025-08-15 13:23 | PM.EVENT ---
Event Note Date of Service: 08/15/25 Event Note: seen by care team who felt patient will not require inpatient admission though now he is willing to reschedule scope and no longer requesting to leave ama Time Spent With Patient Time: Total time managing care of this patient today ____ minutes.
--- NOTE | 2025-08-15 13:59 | MHC.CARE ---
Care Team responded to consult request to speak with this patient who was refusing a medical procedure and threatening to leave AMA. He had made suicidal statements during his admission and was under 1:1 observation.? Patient was sitting up in bed watching television, alert, fully oriented, presented with a bright affect, was pleasant and easily engaged. He reported that he did not want to have a colonoscopy because when he last had one done was awake and remembered. Advised patient he will be fully sedated during the colonoscopy to which he seemed surprised to hear then stated he would no longer object. This patient is well known to [facility] through multiple assessments and psychiatric admissions. While he has chronic suicidal ideation, there is no documented history of attempts. Today patient endorse having suicidal thoughts though denied intention. Dr. Quick updated with this information
[2025-08-15] MEDS: oxyCODONE HCl Immed Release 15 MG TABLET PO ×2 (14:17→20:58)
[2025-08-15] MEDS: Albumin Human 25 % 50 ML 100 ML IV ×2 (14:19→15:07)
[2025-08-16] MEDS: metroNIDAZOLE/NS 500 MG/100 ML PIGGYBACK 100 MG IV ×4 (00:28→23:09)
[2025-08-16] MEDS: oxyCODONE HCl Immed Release 15 MG TABLET PO ×2 (02:41→07:56)
[2025-08-16 03:53] VITALS: BP 129/84; PULSE 110; RESP 18; TEMP 36; O2SAT 93
[2025-08-16 06:17] LABS: Hematocrit 36.3 % (42.0-52.0); Hemoglobin 11.9 g/dl (14.0-18.0); Mean Corpuscular HGB Conc 32.8 g/dl (31.0-36.0); Mean Corpuscular Hemoglobin 28.4 pg (27.0-33.0); Mean Corpuscular Volume 86.6 fL (80.0-98.0); NRBC Abs Auto 0.000 X10*3/uL (0.0-0.012); NRBC Pct Auto 0.0 /100WBC (0.0-0.2); Platelet Count 227 X10*3/uL (160-400); Red Blood Count 4.19 X10*6/uL (4.60-5.80); White Blood Count 7.9 X10*3/uL (4.8-10.8)
[2025-08-16 06:27] LABS: Anion Gap 12 (12-20); Blood Urea Nitrogen 5 mg/dL (9-16); Calcium 8.6 mg/dL (8.4-10.2); Carbon Dioxide 31 mmol/L (22-29); Chloride 103 mmol/L (96-108); Creatinine Clr Calc Pharmacy 104.5; Estimated Glomerular Filt Rate > 60; Magnesium 1.8 mg/dL (1.6-2.6); Potassium 4.2 mmol/L (3.3-5.1); Sodium 142 mmol/L (135-145)
[2025-08-16 07:52] VITALS: BP 153/106; PULSE 97; RESP 16; TEMP 36.2; O2SAT 92
[2025-08-16] MEDS: NIFEdipine ER 60 MG TAB.ER.24 PO (07:53)
[2025-08-16] MEDS: 0.9 % Sodium Chloride Flush 3 ML SYRINGE IVFLUSH ×3 (07:58→23:09)
[2025-08-16] MEDS: oxyCODONE HCl Immed Release 5 MG TABLET 10 MG PO ×3 (08:56→20:29)
--- NOTE | 2025-08-16 09:47 | HE.PHANOTE ---
IV TO PO METRONIDAZOLE CHANGED CHANGED PER POLICY FROM 500 Q 8H IV TO PO. NEXT DOSE 08/16 @ 1600
--- NOTE | 2025-08-16 15:46 | MHC.CM.PN ---
PER ROUNDS PT WILL HAVOING A COLONOSCOPY AND WILL BE SEEN BY CARE TEAM
[2025-08-16 16:00] VITALS: BP 117/68; PULSE 94; RESP 20; TEMP 36.6; O2SAT 93
--- NOTE | 2025-08-16 16:22 | HO.PM.IMPN ---
Subjective Subjective Date of Service: 08/16/25 Interval History: still with SI abd discomfort Physical Exam Exam: Exam: General: AO X2, acute distress Resp: CTA bilateral, no accessory muscles used CVS: S1,S2,RRR GI: soft, tender, non distended Neuro: motor grossly intact, alert Vital Signs: Vital Signs: Last Vital Signs Temp 97.1 F 08/16/25 07:52 Pulse 97 08/16/25 07:52 Resp 16 08/16/25 07:52 BP 153/106 H 08/16/25 07:52 Pulse Ox 92 08/16/25 07:52 O2 Del Method Room Air 08/16/25 07:52 O2 Flow Rate 2 08/15/25 15:52 BMI result Body Mass Index 20.5 Objective Data Active Medications Acetaminophen (Acetaminophen 325 Mg Tablet) 975 mg PO Q6H PRN PRN Reason: Pain, Mild 1-3,fever,headache Last Admin: 08/15/25 15:36 Dose: 975 mg Documented By: USAMA Calcium Carbonate (Calcium Carbonate 750 Mg Tab.Chew) 750 mg PO Q4H PRN PRN Reason: Heartburn Ceftriaxone Sodium (Ceftriaxone Sodium 1 Gm Vial) 1 gm IVPUSH Q24H [facility] Last Admin: 08/16/25 07:57 Dose: 1 gm Documented By: APOLLO Clonidine HCl (Clonidine Hcl 0.1 Mg Tablet) 0.1 mg PO TID [facility]; Protocol Last Admin: 08/16/25 14:19 Dose: 0.1 mg Documented By: APOLLO Docusate Sodium (Docusate Sodium 100 Mg Capsule) 100 mg PO BID PRN PRN Reason: Constipation Duloxetine HCl (Duloxetine Hcl 30 Mg Capsule.Dr) 30 mg PO BID [facility] Last Admin: 08/16/25 07:53 Dose: 30 mg Documented By: APOLLO Hydroxyzine HCl (Hydroxyzine Hcl 25 Mg Tablet) 25 mg PO QID [facility] Last Admin: 08/16/25 14:19 Dose: 25 mg Documented By: APOLLO Metronidazole (Flagyl) 500 mg in 100 mls @ 100 mls/hr IV Q8H [facility] Last Admin: 08/16/25 15:23 Dose: 100 mls/hr Documented By: DIONY Lisinopril (Lisinopril 5 Mg Tablet) 5 mg PO DAILY [facility]; Protocol Last Admin: 08/16/25 07:53 Dose: 5 mg Documented By: APOLLO Loperamide HCl (Loperamide Hcl 2 Mg Capsule) 2 mg PO Q4H PRN PRN Reason: Diarrhea Last Admin: 08/15/25 21:02 Dose: 2 mg Documented By: LAURENT Magnesium Hydroxide (Milk Of Magnesia 30 Ml Oral.Susp) 30 ml PO DAILY PRN PRN Reason: Constipation Melatonin (Melatonin 3 Mg Tablet) 6 mg PO BEDTIME PRN PRN Reason: Insomnia Last Admin: 08/09/25 22:11 Dose: 6 mg Documented By: BRAD Methadone HCl (Methadone Hcl 10 Mg Tablet) 10 mg PO BID [facility] Last Admin: 08/16/25 08:02 Dose: 10 mg Documented By: APOLLO Metoprolol Tartrate (Metoprolol Tartrate 50 Mg Tablet) 50 mg PO BID [facility]; Protocol Last Admin: 08/16/25 07:53 Dose: 50 mg Documented By: APOLLO Nifedipine (Nifedipine Er 60 Mg Tab.Er.24) 60 mg PO DAILY [facility]; Protocol Last Admin: 08/16/25 07:53 Dose: 60 mg Documented By: APOLLO Ondansetron HCl (Ondansetron Hcl 4 Mg/2 Ml Vial) 4 mg IVPUSH Q8H PRN PRN Reason: Nausea and Vomiting Last Admin: 08/13/25 11:30 Dose: 4 mg Documented By: LUCIAME Oxycodone HCl (Oxycodone Hcl Immed Release 5 Mg Tablet) 10 mg PO Q6H PRN PRN Reason: Pain, Severe (Pain Scale 7-10) Last Admin: 08/16/25 14:19 Dose: 10 mg Documented By: APOLLO Sodium Biphosphate/Sodium Phosphate (Sodium Phosphate,Crenshaw-Dibasic 133 Ml Enema) 133 ml CA ONCE PRN PRN Reason: Poor Colonoscopy Prep Results Sodium Chloride (0.9 % Sodium Chloride Flush 3 Ml Syringe) 3 ml IVFLUSH QSHIFT [facility] Last Admin: 08/16/25 15:24 Dose: 3 ml Documented By: DIONY Trazodone HCl (Trazodone Hcl 50 Mg Tablet) 50 mg PO BEDTIME [facility] Last Admin: 08/15/25 20:59 Dose: 50 mg Documented By: LAURENT Labs 08/16/25 05:46 08/16/25 05:46 Labs: Laboratory Results - last 24 hr 08/16/25 05:46 MCV 86.6 MCH 28.4 MCHC 32.8 RDW 13.1 Plt Count 227 D MPV 10.1 Absolute Nucleated RBC 0.000 Nucleated RBC % (auto) 0.0 Anion Gap 12 Estim Creat Clear Calc 104.5 Estimated GFR > 60 Random Glucose 95 Calcium 8.6 Magnesium 1.8 Assessment and Plan (1) Acute colitis: Status: Acute Plan 70M PMH mood disorder, pafib on xarelto, IVDU, AICD, HTN, presented with abd pain Sepsis due to acute colitis stool negative continue rocephin/flagyl acute thrombocytopenia possible due to zosyn, changed to rocephin/flagyl, improving possible splenic flexure colon mass and possible pancreatic mass gi appreciated - plan for scope 08/18 unable to get MRCP due to lack of info on AICD acute hypoxic resp failure wean o2 suicidal ideation sitter care team prior to discharge will need another n clearence if try to sign ama. opiate dependence methadone htn nifedipine, clonidine, lopressor pafib lopressor, hold xarelto for possible gi bleed dvt prophylaxis - mechanical due to gi bleed full code reason for continued hospitalization:plan for scope, hypoxia Quality Stroke Does the patient have a stroke diagnosis?: No VTE Prior VTE?: No VTE Risk Level:: Medical - moderate - high VTE Device Contraindication: N/A - Device Ordered VTE Drug Contraindication: Treatment Not Indicated
[2025-08-16 20:00] VITALS: BP 123/70; PULSE 95; RESP 19; TEMP 37.2; O2SAT 92
[2025-08-16 20:30] VITALS: BP 123/70; PULSE 95
[2025-08-16 20:31] VITALS: BP 123/70
--- NOTE | 2025-08-16 23:05 | PM.EVENT ---
Event Note Date of Service: 08/16/25 Event Note: GI-I was advised by Dr. Fletcher earlier today that patient is now agreeable to undergoing the GI procedures of EGD and Colonoscopy. I have placed orders for the prep for 08/17 and the procedures have been scheduled for Thursday, 08/18. Please call if issues/questions arise. Thanks. Time Spent With Patient Time: Total time managing care of this patient today ____ minutes.
[2025-08-17 03:41] VITALS: BP 133/72; PULSE 89; RESP 16; TEMP 36.3; O2SAT 94
[2025-08-17] MEDS: oxyCODONE HCl Immed Release 5 MG TABLET 10 MG PO ×2 (06:15→14:03)
[2025-08-17 07:02] VITALS: BP 160/74; PULSE 83; RESP 17; TEMP 36.6; O2SAT 92
[2025-08-17] MEDS: NIFEdipine ER 60 MG TAB.ER.24 PO (08:10)
[2025-08-17] MEDS: 0.9 % Sodium Chloride Flush 3 ML SYRINGE IVFLUSH ×3 (08:12→19:49)
--- NOTE | 2025-08-17 14:18 | P.PNIM_ITS ---
Subjective Subjective Date of Service: 08/17/25 Interval History: abd discomfort Review of Systems Review of Systems: Yes all other systems are reviewed and are negative Physical Exam 2 Exam: Exam: General: AO X2, acute distress Resp: CTA bilateral, no accessory muscles used CVS: S1,S2,RRR GI: soft, tender, non distended Neuro: motor grossly intact, alert Vital Signs: Vital Signs: Last Vital Signs Temp 98 F 08/17/25 07:02 Pulse 83 08/17/25 07:02 Resp 17 08/17/25 07:02 BP 160/74 H 08/17/25 07:02 Pulse Ox 92 08/17/25 07:02 O2 Del Method Room Air 08/17/25 07:02 O2 Flow Rate 2 08/15/25 15:52 BMI result Body Mass Index 20.5 Objective Data Active Medications Acetaminophen (Acetaminophen 325 Mg Tablet) 975 mg PO Q6H PRN PRN Reason: Pain, Mild 1-3,fever,headache Last Admin: 08/15/25 15:36 Dose: 975 mg Documented By: USAMA Bisacodyl (Bisacodyl 5 Mg Tablet.) 10 mg PO ONCE ONE Stop: 08/17/25 15:01 Bisacodyl (Bisacodyl 5 Mg Tablet.) 10 mg PO ONCE ONE Stop: 08/17/25 19:01 Calcium Carbonate (Calcium Carbonate 750 Mg Tab.Chew) 750 mg PO Q4H PRN PRN Reason: Heartburn Ceftriaxone Sodium (Ceftriaxone Sodium 1 Gm Vial) 1 gm IVPUSH Q24H [facility] Last Admin: 08/17/25 08:11 Dose: 1 gm Documented By: GAGE Clonidine HCl (Clonidine Hcl 0.1 Mg Tablet) 0.1 mg PO TID [facility]; Protocol Last Admin: 08/17/25 08:10 Dose: 0.1 mg Documented By: GAGE Docusate Sodium (Docusate Sodium 100 Mg Capsule) 100 mg PO BID PRN PRN Reason: Constipation Duloxetine HCl (Duloxetine Hcl 30 Mg Capsule.) 30 mg PO BID [facility] Last Admin: 08/17/25 08:10 Dose: 30 mg Documented By: GAGE Hydroxyzine HCl (Hydroxyzine Hcl 25 Mg Tablet) 25 mg PO QID [facility] Last Admin: 08/17/25 13:59 Dose: Not Given Documented By: GAGE Non-Admin Reason: Patient Refused Lisinopril (Lisinopril 5 Mg Tablet) 5 mg PO DAILY [facility]; Protocol Last Admin: 08/17/25 08:10 Dose: 5 mg Documented By: GAGE Magnesium Hydroxide (Milk Of Magnesia 30 Ml Oral.Susp) 30 ml PO DAILY PRN PRN Reason: Constipation Melatonin (Melatonin 3 Mg Tablet) 6 mg PO BEDTIME PRN PRN Reason: Insomnia Last Admin: 08/16/25 20:29 Dose: 6 mg Documented By: DIONY Methadone HCl (Methadone Hcl 10 Mg Tablet) 10 mg PO BID [facility] Last Admin: 08/17/25 08:10 Dose: 10 mg Documented By: GAGE Metoprolol Tartrate (Metoprolol Tartrate 50 Mg Tablet) 50 mg PO BID [facility]; Protocol Last Admin: 08/17/25 08:10 Dose: 50 mg Documented By: GAGE Metronidazole (Metronidazole 500 Mg Tablet) 500 mg PO Q8H [facility] Last Admin: 08/17/25 08:58 Dose: 500 mg Documented By: GAGE Nifedipine (Nifedipine Er 60 Mg Tab.Er.24) 60 mg PO DAILY [facility]; Protocol Last Admin: 08/17/25 08:10 Dose: 60 mg Documented By: GAGE Ondansetron HCl (Ondansetron Hcl 4 Mg/2 Ml Vial) 4 mg IVPUSH Q8H PRN PRN Reason: Nausea and Vomiting Last Admin: 08/13/25 11:30 Dose: 4 mg Documented By: RAVEN Oxycodone HCl (Oxycodone Hcl Immed Release 5 Mg Tablet) 10 mg PO Q6H PRN PRN Reason: Pain, Severe (Pain Scale 7-10) Last Admin: 08/17/25 14:03 Dose: 10 mg Documented By: GAGE Polyethylene Glycol/Electrolytes (Peg 3350/Na Sulf,Bicarb,Cl/Kcl 4,000 Ml Soln.Recon) 4,000 ml PO ONCE ONE Stop: 08/17/25 16:01 Sodium Biphosphate/Sodium Phosphate (Sodium Phosphate,Dickens-Dibasic 133 Ml Enema) 133 ml [place] ONCE PRN PRN Reason: Poor Colonoscopy Prep Results Sodium Chloride (0.9 % Sodium Chloride Flush 3 Ml Syringe) 3 ml IVFLUSH QSHIFT [facility] Last Admin: 08/17/25 08:12 Dose: 3 ml Documented By: GAGE Trazodone HCl (Trazodone Hcl 50 Mg Tablet) 50 mg PO BEDTIME [facility] Last Admin: 08/16/25 20:31 Dose: 50 mg Documented By: SANDRAQC Labs 08/16/25 05:46 08/16/25 05:46 Assessment and Plan (1) Acute colitis: Status: Acute Plan 70M PMH mood disorder, pafib on xarelto, IVDU, AICD, HTN, presented with abd pain Sepsis due to acute colitis stool negative continue rocephin/flagyl acute thrombocytopenia possible due to zosyn, changed to rocephin/flagyl, improving possible splenic flexure colon mass and possible pancreatic mass gi appreciated - plan for scope 08/18 unable to get MRCP due to lack of info on AICD acute hypoxic resp failure weaned off o2 suicidal ideation sitter care team prior to discharge will need another n clearence if try to sign ama. opiate dependence methadone htn nifedipine, clonidine, lopressor pafib lopressor, hold xarelto for possible gi bleed dvt prophylaxis - mechanical due to gi bleed full code reason for continued hospitalization:plan for scope, hypoxia Quality Stroke Does the patient have a stroke diagnosis?: No VTE Prior VTE?: No VTE Risk Level:: Medical - moderate - high VTE Device Contraindication: N/A - Device Ordered VTE Drug Contraindication: Treatment Not Indicated
[2025-08-17 15:41] VITALS: BP 129/69
[2025-08-17 16:00] VITALS: BP 135/89; PULSE 93; RESP 19; TEMP 36.3; O2SAT 93
--- NOTE | 2025-08-17 17:29 | MHC.SHP ---
Pre-Procedural Eval Section A - 24 Hr Update-Section A only Date of Service: 08/18/25 The patient is an INPATIENT: Yes The patient has been examined within 24 hours of the surgical procedure. The History & Physical has been completed within 30 days and I have reviewed it.: Yes Section B - Complete if H&P > 30 days Chief Complaint: Colitis Allergies: Allergies Allergy/AdvReac Type Severity Reaction Status Date / Time ergotamine (ERGOTAMINE) AdvReac Severe NAUSEA Verified 08/09/25 13:02 Plan I have reviewed the history and physical and performed a pertinent physical examination on my patient. No changes have occurred unless specified. Time Spent With Patient Time: Total time managing care of this patient today ____ minutes.
[2025-08-17 19:27] VITALS: BP 124/72; PULSE 117; RESP 18; TEMP 36.3; O2SAT 92
--- NOTE | 2025-08-17 19:54 | PC.NURSE ---
pt refused chela PO at 194, pt education provided.
[2025-08-17 20:06] LABS: Anion Gap 13 (12-20); Blood Urea Nitrogen 8 mg/dL (9-16); Calcium 8.5 mg/dL (8.4-10.2); Carbon Dioxide 28 mmol/L (22-29); Chloride 103 mmol/L (96-108); Creatinine Clr Calc Pharmacy 101.2; Estimated Glomerular Filt Rate > 60; Magnesium 2.1 mg/dL (1.6-2.6); Potassium 2.9 mmol/L (3.3-5.1); Sodium 141 mmol/L (135-145)
[2025-08-17] MEDS: Potassium Chloride Packet 20 MEQ PACKET 40 MEQ PO (20:50)
--- NOTE | 2025-08-17 22:39 | PC.NURSE ---
Pt is on a clear liquid diet until 0000, pt refused colonoscopy prep this afternoon, he also refused second dose of dulcolax this evening, stating he is not doing any procedures tomorrow and that he is going home. He's been bothering us all night for a sandwich and still insisting that he is not going for any procedures tomorrow and to let the doctor know. Lyric Preston NP made aware and I did give him a sandwich.
[2025-08-18] VITALS (8 sets, daily range): BP systolic 122–135; BP diastolic 65–84; PULSE 99–134; RESP 16–20; TEMP 36.6–37; O2SAT 92–94
--- NOTE | 2025-08-18 | ECG_ITS ---
Test Reason : AFIB Blood Pressure : */* mmHG Vent. Rate : 93 BPM Atrial Rate : * BPM P-R Int : * ms QRS Dur : 84 ms QT Int : 332 ms P-R-T Axes : * 14 216 degrees QTcB Int : 412 ms Atrial fibrillation Septal infarct (cited on or before 27-Apr-2024) ST & T wave abnormality, consider lateral ischemia Abnormal ECG When compared with ECG of 15-Aug-2025 18:45, T wave inversion now evident in Anterior leads QT has shortened Referred By: Arcadio Fletcher Electronically Signed By: Carlos Baez
[2025-08-18] MEDS: oxyCODONE HCl Immed Release 5 MG TABLET 10 MG PO ×3 (03:58→14:44)
--- NOTE | 2025-08-18 05:15 | PC.NURSE ---
At 0409 pt had an episode of Afib RVR with HR ranging in the 120's-140's up to 152 at one point. He was up and ambulating to the bathroom. HR went back down to 90's/low 100's once he was back in bed. Lyric Preston, BRYANT aware.
--- NOTE | 2025-08-18 06:11 | PC.NURSE ---
pt refusing NPO diet and demanding cheryl debbie, stating he's not doing any procedures today. pt drinking cheryl debbie at this time.
[2025-08-18 06:19] LABS: MANUAL DIFF FLAG NO
[2025-08-18 06:24] LABS: Hematocrit 31.9 % (42.0-52.0); Hemoglobin 10.7 g/dl (14.0-18.0); Imm Gran Abs Auto 0.09 X10*3/uL (0.00-0.03); Imm Gran Pct Auto 0.9 % (0.0-0.4); Lymphocytes Absolute Auto 1.2 X10*3/uL (1.2-4.9); Mean Corpuscular HGB Conc 33.5 g/dl (31.0-36.0); Mean Corpuscular Hemoglobin 28.8 pg (27.0-33.0); Mean Corpuscular Volume 86.0 fL (80.0-98.0); NRBC Abs Auto 0.000 X10*3/uL (0.0-0.012); NRBC Pct Auto 0.0 /100WBC (0.0-0.2); Platelet Count 284 X10*3/uL (160-400); Red Blood Count 3.71 X10*6/uL (4.60-5.80); White Blood Count 9.6 X10*3/uL (4.8-10.8)
[2025-08-18 06:42] LABS: Anion Gap 13 (12-20); Blood Urea Nitrogen 6 mg/dL (9-16); Calcium 8.1 mg/dL (8.4-10.2); Carbon Dioxide 25 mmol/L (22-29); Chloride 104 mmol/L (96-108); Creatinine Clr Calc Pharmacy 106.1; Estimated Glomerular Filt Rate > 60; Potassium 3.0 mmol/L (3.3-5.1); Sodium 139 mmol/L (135-145)
--- NOTE | 2025-08-18 07:00 | CA_ITS ---
Transthoracic Echocardiogram Patient (Last, First, Middle): Aaron Hernandes P Gender: Male Date of : 1955 Age: 70 Procedure Date: 08/18/2025 Procedure Type: Transthoracic Echocardiogram Location: S3E Height: 182.88 cm Weight: 68.49 kg BSA: 1.89 m2 Heart Rate: bpm BP: 126 / 65 mmHg Perioperative Tech: ELIN Referring MD: Arcadio Fletcher MD Symptoms: nsvt Study Quality: Technically Difficult w contrast Conclusions: - Normal left ventricular size, thickness, systolic function, and wall motion. The visually estimated ejection fraction is between 60-65%. - Normal right ventricular cavity size and systolic function. There is an ICD wire seen in the right ventricle. - The left atrium is likely dilated. Findings Procedure Information Contrast agent, definity, is being given per protocol without apparent complications. Left Ventricle Normal left ventricular size, thickness, systolic function, and wall motion. The visually estimated ejection fraction is between 60-65%. Diastolic function is indeterminate on the basis of available data. Right Ventricle Normal right ventricular cavity size and systolic function. There is an ICD wire seen in the right ventricle. Atria The left atrium is likely dilated. The right atrium is normal in size. Aortic Valve The aortic valve was not well visualized. There is no aortic valve stenosis. There is no aortic valve regurgitation. Mitral Valve The mitral valve appears normal. There is no mitral valve regurgitation. There is no mitral valve stenosis. Pulmonic Valve The pulmonic valve is likely normal. Tricuspid Valve Normal tricuspid valve structure. There is no tricuspid valve regurgitation. Tricuspid regurgitation envelope is inadequate for calculation of right ventricular systolic pressure. Normal right atrial pressure. Great Vessels All visible segments of the aorta are normal in size. Venous The inferior vena cava is normal in size and collapses greater than 50% with inspiration. Pericardium/Pleural There is no evidence of pericardial effusion. Measurements 2D Linear Measurements IVSd: 0.98 0.6-0.9/0.6-1.0 cm LVIDd: 3.05 3.9-5.3/4.2-5.9 cm LVIDd Index: 1.61 2.4-3.2/2.2-3.1 cm/m2 LVIDs: 2.17 2.0-3.6 cm LVPWd: 0.92 0.7-1.1 cm LA Diam: 3.10 2.7-3.8/3.0-4.0 cm LAIDs Index: 1.64 1.5-2.3 cm/m2 LV Mass: 96.55 67-162/88-224 g LV Mass Index: 51.09 43-95/49-115 g/m2 LVOT Diam: 2.00 3.0+(-)1.3 cm Mitral Valve MV Pk E: 1.06 MV PK A: 0.57 MV Decel Time: 183.00 E/A: 1.90 E'Lateral: 13.10 E'Medial: 11.50 E/E' Med: 9.20 E/E' Lat: 8.10 PHT: 53.00 MVA PHT: 4.15 Decel Clare: 5.94 Aortic Valve AoV Pk Charanjit: 1.28 AoV Mn Charanjit: 0.91 AoV VTI: 0.20 AoV Pk Grad: 7.00 Aov Mn Grad: 4.00 EDDIE Cont.VTI: 2.79 LVOT LVOT Pk Charanjit: 1.03 LVOT Mn Charanjit: 0.72 LVOT VTI: 0.18 LVOT Pk Grad: 4.00 LVOT Mn Grad: 2.00 LVOT Diam: 2.00 LVOT Area: 3.14 Diastolic Function MV Pk E: 1.06 MV Pk A: 0.57 E/A: 1.90 E'Medial: 11.50 E/E' Med: 9.20 E' Laterial: 13.10 E/E' Lat: 8.10 Right Ventricle TAPSE (mm): 20.40 TVS' Charanjit: 12.40 Tricuspid Valve TR Pk Charanjit: 2.46 TR Pk Grad: 24.00 Great Vessels Aorta Sinus of Valsalva: 3.30 2.0-3.5 cm Ao Asc: 3.80 2.1-3.4 cm Ao Arch: 3.60 Pulmonary Veins Pulm Vein S/D 1.20 Pulmonary Valve PV Pk Charanjit: 0.87 Peak PV Grad: 3.00 Updated in Other Vendor System with Status of Final Carlos Baez MD electronically signed on 08/18/2025 11:53:25 PM with status of Final
--- NOTE | 2025-08-18 07:46 | HO.PM.IMPN ---
Subjective Subjective Date of Service: 08/18/25 Interval History: acute colitis Review of Systems says abd pain improving has afib rvr -refused meds inbetween -spoke to patient,now agrees to take meds. Review of Systems: Yes all other systems are reviewed and are negative Physical Exam Exam: Exam: General: AO X3, acute distress Resp: CTA bilateral, no accessory muscles used CVS: S1,S2,RRR GI: soft, tender, non distended Neuro: motor grossly intact, alert Vital Signs: Vital Signs: Last Vital Signs Temp 97.9 F 08/18/25 07:32 Pulse 102 H 08/18/25 07:32 Resp 16 08/18/25 07:32 BP 126/65 08/18/25 07:32 Pulse Ox 93 08/18/25 07:32 O2 Del Method Room Air 08/18/25 07:32 O2 Flow Rate 2 08/15/25 15:52 BMI result Body Mass Index 20.5 Objective Data Active Medications Acetaminophen (Acetaminophen 325 Mg Tablet) 975 mg PO Q6H PRN PRN Reason: Pain, Mild 1-3,fever,headache Last Admin: 08/15/25 15:36 Dose: 975 mg Documented By: USAAM Calcium Carbonate (Calcium Carbonate 750 Mg Tab.Chew) 750 mg PO Q4H PRN PRN Reason: Heartburn Ceftriaxone Sodium (Ceftriaxone Sodium 1 Gm Vial) 1 gm IVPUSH Q24H [facility] Last Admin: 08/17/25 08:11 Dose: 1 gm Documented By: GAGE Clonidine HCl (Clonidine Hcl 0.1 Mg Tablet) 0.1 mg PO TID [facility]; Protocol Last Admin: 08/17/25 19:49 Dose: 0.1 mg Documented By: DEISY Docusate Sodium (Docusate Sodium 100 Mg Capsule) 100 mg PO BID PRN PRN Reason: Constipation Duloxetine HCl (Duloxetine Hcl 30 Mg Capsule.Dr) 30 mg PO BID [facility] Last Admin: 08/17/25 19:47 Dose: 30 mg Documented By: DEISY Hydroxyzine HCl (Hydroxyzine Hcl 25 Mg Tablet) 25 mg PO QID [facility] Last Admin: 08/17/25 19:48 Dose: 25 mg Documented By: DEISY Lisinopril (Lisinopril 5 Mg Tablet) 5 mg PO DAILY [facility]; Protocol Last Admin: 08/17/25 08:10 Dose: 5 mg Documented By: GAGE Magnesium Hydroxide (Milk Of Magnesia 30 Ml Oral.Susp) 30 ml PO DAILY PRN PRN Reason: Constipation Melatonin (Melatonin 3 Mg Tablet) 6 mg PO BEDTIME PRN PRN Reason: Insomnia Last Admin: 08/16/25 20:29 Dose: 6 mg Documented By: DIONY Methadone HCl (Methadone Hcl 10 Mg Tablet) 10 mg PO BID [facility] Last Admin: 08/17/25 19:48 Dose: 10 mg Documented By: DEISY Metoprolol Tartrate (Metoprolol Tartrate 50 Mg Tablet) 50 mg PO BID [facility]; Protocol Last Admin: 08/17/25 19:48 Dose: 50 mg Documented By: DEISY Metronidazole (Metronidazole 500 Mg Tablet) 500 mg PO Q8H [facility] Last Admin: 08/18/25 00:11 Dose: 500 mg Documented By: DEISY Nifedipine (Nifedipine Er 60 Mg Tab.Er.24) 60 mg PO DAILY [facility]; Protocol Last Admin: 08/17/25 08:10 Dose: 60 mg Documented By: GAGE Ondansetron HCl (Ondansetron Hcl 4 Mg/2 Ml Vial) 4 mg IVPUSH Q8H PRN On Hold: 08/17/25 17:44 PRN Reason: Nausea and Vomiting Last Admin: 08/13/25 11:30 Dose: 4 mg Documented By: RAVEN Oxycodone HCl (Oxycodone Hcl Immed Release 5 Mg Tablet) 10 mg PO Q6H PRN PRN Reason: Pain, Severe (Pain Scale 7-10) Last Admin: 08/18/25 03:58 Dose: 10 mg Documented By: DEISY Sodium Biphosphate/Sodium Phosphate (Sodium Phosphate,Cloud-Dibasic 133 Ml Enema) 133 ml MS ONCE PRN PRN Reason: Poor Colonoscopy Prep Results Sodium Chloride (0.9 % Sodium Chloride Flush 3 Ml Syringe) 3 ml IVFLUSH QSHIFT [facility] Last Admin: 08/17/25 19:49 Dose: 3 ml Documented By: DEISY Trazodone HCl (Trazodone Hcl 50 Mg Tablet) 50 mg PO BEDTIME [facility] Last Admin: 08/17/25 19:48 Dose: 50 mg Documented By: DEISY Labs 08/18/25 06:04 08/18/25 06:04 Labs: Laboratory Results - last 24 hr 08/17/25 08/18/25 19:24 06:04 MCV 86.0 MCH 28.8 MCHC 33.5 RDW 13.6 Plt Count 284 D MPV 9.9 Immature Gran % (Auto) 0.9 H Neut % (Auto) 75.5 H Lymph % (Auto) 12.9 L Cloud % (Auto) 8.8 Eos % (Auto) 1.6 Baso % (Auto) 0.3 Lymph # (Auto) 1.2 Cloud # (Auto) 0.9 Eos # (Auto) 0.2 Baso # (Auto) 0.0 Abs Immat Gran (auto) 0.09 H Absolute Neuts (auto) 7.3 Absolute Nucleated RBC 0.000 Nucleated RBC % (auto) 0.0 Anion Gap 13 13 Estim Creat Clear Calc 101.2 106.1 Estimated GFR > 60 > 60 Random Glucose 106 Fasting Glucose 119 H Calcium 8.5 8.1 L Magnesium 2.1 TSH 3.22 Assessment and Plan (1) Acute colitis: Status: Acute Plan 70M PMH mood disorder, pafib on xarelto, IVDU, AICD, HTN, presented with abd pain Sepsis due to acute colitis stool negative continue rocephin/flagyl acute thrombocytopenia possible due to zosyn, changed to rocephin/flagyl, improving possible splenic flexure colon mass and possible pancreatic mass gi appreciated - plan for scope 08/18 unable to get MRCP due to lack of info on AICD acute hypoxic resp failure weaned off o2 suicidal ideation sitter care team prior to discharge will need another [facility]rence if try to sign ama. opiate dependence methadone htn nifedipine, clonidine, lopressor pafib lopressor, hold xarelto for possible gi bleed dvt prophylaxis - mechanical due to gi bleed full code reason for continued hospitalization:plan for scope, hypoxia Quality Stroke Does the patient have a stroke diagnosis?: No VTE Prior VTE?: No VTE Risk Level:: Medical - moderate - high VTE Device Contraindication: N/A - Device Ordered VTE Drug Contraindication: Treatment Not Indicated
[2025-08-18 07:57] LABS: Magnesium 1.9 mg/dL (1.6-2.6)
[2025-08-18] MEDS: 0.9 % Sodium Chloride Flush 3 ML SYRINGE IVFLUSH ×3 (09:00→22:04)
[2025-08-18] MEDS: Potassium Chloride ER 20 MEQ TAB.ER.PRT 40 MEQ PO (09:05)
--- NOTE | 2025-08-18 10:31 | PC.NURSE ---
Addendum entered by Radha Chambers, RN 08/18/25 10:36: education on importance of cardiac meds given multiple times and patient states i dont care Original Note: pt accepts med cup with meds in it after carefully explanation of each med and puts them in his mouth and then took out a few stating i only want my pain meds and it is impossible to decipher which meds hes spitting out to chart appropriately which med was refused
--- NOTE | 2025-08-18 12:09 | PM.CNCAR ---
History of Present Illness History of Present Illness Date of Service: 08/18/25 Chief complaint: Colitis Narrative: [age] gentleman presenting with abdominal pain nausea and diagnosed with colitis. There is also some concern for colon mass. He is complaining of nausea, diarrhea and incontinence. He also has abdominal pain which he has described as a diffuse pain. He is in AFib with RVR but does not feel the atrial fibrillation. He has an ICD in his saying that this was never replaced. He is saying that it was placed awhile ago and he had multiple shocks at that time. Details unclear currently to me and we will gather some more information about this. Telemetry is clearly showing atrial fibrillation. He has no symptoms from that. [facility] Past Medical History Medical History MDD (major depressive disorder), recurrent episode, moderate Paroxysmal atrial fibrillation History of intravenous drug abuse Presence of combination internal cardiac defibrillator (ICD) and pacemaker Ventricular arrhythmia Opioid dependence Lumbar disc herniation Thoracic disc herniation Cervical disc herniation Opioid abuse Pacemaker HTN (hypertension) Family History Family History Mother HTN (hypertension) CHF (congestive heart failure) Surgical History Surgical History History of spinal fusion History of hip replacement Social History Social History Household Members: Other Household Members Other:: lives with other roommates Housing: Other Housing Other:: bharat Do you presently have visiting nurse or other home services: No Alcohol intake: former 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 If so, by whom?: No Do you feel safe in your current relationship?: No Current Relationship Is there a partner from a previous relationship who is making you feel unsafe now?: No Advance Directives: Yes Advance Directives on File: Yes Advance Directives Date on File: 04/29/24 Suicidal Behavior: History of suicide attemps Current/Past Psychiatric Disorders: Mood disorder and Substance abuse Barber Symptoms: Hopelessness and Worthlessness Access to Firearms: No Do you have a plan to hurt others: No Plan Recently lost weight without trying: No How much weight loss: Not applicable Eating poorly because of decreased appetite: No Nutrition screen score: 0 Nutrition Risks: No Nutritional Risk Poor oral hygiene: No service: No Current occupational status: retired and disabled Sexual orientation: Straight/Heterosexual Meds Allergies Allergy/AdvReac Type Severity Reaction Status Date / Time ergotamine (ERGOTAMINE) AdvReac Severe NAUSEA Verified 08/09/25 13:02 Active Medications: Current Medications Acetaminophen (Acetaminophen 325 Mg Tablet) 975 mg PO Q6H PRN PRN Reason: Pain, Mild 1-3,fever,headache Last Admin: 08/15/25 15:36 Dose: 975 mg Calcium Carbonate (Calcium Carbonate 750 Mg Tab.Chew) 750 mg PO Q4H PRN PRN Reason: Heartburn Ceftriaxone Sodium (Ceftriaxone Sodium 1 Gm Vial) 1 gm IVPUSH Q24H [facility] Last Admin: 08/18/25 09:05 Dose: 1 gm Clonidine HCl (Clonidine Hcl 0.1 Mg Tablet) 0.1 mg PO TID [facility]; Protocol Last Admin: 08/18/25 09:04 Dose: 0.1 mg Docusate Sodium (Docusate Sodium 100 Mg Capsule) 100 mg PO BID PRN PRN Reason: Constipation Duloxetine HCl (Duloxetine Hcl 30 Mg Capsule.Dr) 30 mg PO BID [facility] Last Admin: 08/18/25 09:04 Dose: 30 mg Hydroxyzine HCl (Hydroxyzine Hcl 25 Mg Tablet) 25 mg PO QID [facility] Last Admin: 08/18/25 09:04 Dose: 25 mg Lisinopril (Lisinopril 5 Mg Tablet) 5 mg PO DAILY [facility]; Protocol Last Admin: 08/18/25 09:05 Dose: 5 mg Magnesium Hydroxide (Milk Of Magnesia 30 Ml Oral.Susp) 30 ml PO DAILY PRN PRN Reason: Constipation Melatonin (Melatonin 3 Mg Tablet) 6 mg PO BEDTIME PRN PRN Reason: Insomnia Last Admin: 08/16/25 20:29 Dose: 6 mg Methadone HCl (Methadone Hcl 10 Mg Tablet) 10 mg PO BID [facility] Last Admin: 08/18/25 09:05 Dose: 10 mg Metoprolol Tartrate (Metoprolol Tartrate 25 Mg Tablet) 75 mg PO BID [facility]; Protocol Last Admin: 08/18/25 09:04 Dose: 75 mg Metoprolol Tartrate (Metoprolol Tartrate 5 Mg/5 Ml Vial) 2.5 mg IVPUSH Q6H PRN; Protocol PRN Reason: Bp Metronidazole (Metronidazole 500 Mg Tablet) 500 mg PO Q8H [facility] Last Admin: 08/18/25 09:05 Dose: 500 mg Nifedipine (Nifedipine Er 60 Mg Tab.Er.24) 60 mg PO DAILY [facility]; Protocol On Hold: 08/18/25 07:45 Last Admin: 08/17/25 08:10 Dose: 60 mg Ondansetron HCl (Ondansetron Hcl 4 Mg/2 Ml Vial) 4 mg IVPUSH Q8H PRN On Hold: 08/17/25 17:44 PRN Reason: Nausea and Vomiting Last Admin: 08/13/25 11:30 Dose: 4 mg Oxycodone HCl (Oxycodone Hcl Immed Release 5 Mg Tablet) 10 mg PO Q6H PRN PRN Reason: Pain, Severe (Pain Scale 7-10) Last Admin: 08/18/25 09:04 Dose: 10 mg Sodium Biphosphate/Sodium Phosphate (Sodium Phosphate,Preston-Dibasic 133 Ml Enema) 133 ml NV ONCE PRN PRN Reason: Poor Colonoscopy Prep Results Sodium Chloride (0.9 % Sodium Chloride Flush 3 Ml Syringe) 3 ml IVFLUSH QSHIFT [facility] Last Admin: 08/18/25 09:00 Dose: 3 ml Trazodone HCl (Trazodone Hcl 50 Mg Tablet) 50 mg PO BEDTIME [facility] Last Admin: 08/17/25 19:48 Dose: 50 mg Home Medications ?Medication ?Instructions ?Recorded ?Confirmed ?Last Taken ?Type hydroxyzine HCl 25 mg tablet 25 mg PO QID anxiety/insomnia 12/12/23 08/09/25 Unknown History rivaroxaban 20 mg tablet (Xarelto) 20 mg PO DAILY@1700 07/04/24 08/09/25 06/13/25 History duloxetine 30 mg capsule,delayed 30 mg PO BID 03/23/25 08/09/25 06/14/25 History release acetaminophen 650 mg 650 mg PO Q6H PRN Fever Or Pain 08/09/25 08/09/25 Unknown History tablet,extended release clonidine HCl 0.1 mg tablet 0.1 mg PO TID 08/09/25 08/09/25 Unknown History docusate sodium 100 mg capsule 100 mg PO BID PRN Constipation 08/09/25 08/09/25 Unknown History (Colace) methadone 10 mg tablet 10 mg PO BID 08/09/25 08/09/25 Unknown History nifedipine 60 mg tablet,extended 60 mg PO DAILY 08/09/25 08/09/25 Unknown History release 24 hr oxycodone 15 mg tablet 15 mg PO QID PRN Pain 08/09/25 08/09/25 Unknown History polyethylene glycol 3350 17 17 g PO DAILY PRN Constipation 08/09/25 08/09/25 Unknown History gram/dose oral powder (Miralax) sennosides 8.6 mg tablet (senna) 17.2 mg PO BID PRN Constipation 08/09/25 08/09/25 Unknown History Physical Exam Vital Signs: Vital Signs: Last Vital Signs Temp 97.9 F 08/18/25 07:32 Pulse 102 H 08/18/25 07:32 Resp 16 08/18/25 07:32 BP 126/65 08/18/25 07:32 Pulse Ox 93 08/18/25 07:32 O2 Del Method Room Air 08/18/25 07:32 O2 Flow Rate 2 08/15/25 15:52 BMI result Body Mass Index 20.5 GENERAL APPEARANCE: in no acute distress, thin. NECK: no carotid bruit, no jugular venous distention. SKIN: no suspicious lesions, warm and dry. HEART: no murmurs, irregular rate and rhythm. LUNGS: clear to auscultation bilaterally. ABDOMEN: soft. EXTREMITIES: no edema. PERIPHERAL PULSES: equal. NEUROLOGIC: No gross deficits, AAO X 3 Objective Labs and Meds 08/18/25 06:04 08/18/25 06:04 Lab results: Laboratory Results - last 24 hr 08/17/25 08/18/25 19:24 06:04 WBC 9.6 RBC 3.71 L Hgb 10.7 L Hct 31.9 L MCV 86.0 MCH 28.8 MCHC 33.5 RDW 13.6 Plt Count 284 D MPV 9.9 Immature Gran % (Auto) 0.9 H Neut % (Auto) 75.5 H Lymph % (Auto) 12.9 L Preston % (Auto) 8.8 Eos % (Auto) 1.6 Baso % (Auto) 0.3 Lymph # (Auto) 1.2 Preston # (Auto) 0.9 Eos # (Auto) 0.2 Baso # (Auto) 0.0 Abs Immat Gran (auto) 0.09 H Absolute Neuts (auto) 7.3 Absolute Nucleated RBC 0.000 Nucleated RBC % (auto) 0.0 Sodium 141 139 Potassium 2.9 L* D 3.0 L Chloride 103 104 Carbon Dioxide 28 25 Anion Gap 13 13 BUN 8 L 6 L Creatinine 0.65 0.62 Estim Creat Clear Calc 101.2 106.1 Estimated GFR > 60 > 60 Random Glucose 106 Fasting Glucose 119 H Calcium 8.5 8.1 L Magnesium 2.1 1.9 TSH 3.22 Assessment and Plan (1) Atrial fibrillation with RVR: Status: Acute Plan [age] gentleman with AFib with RVR in the setting of colitis and question colon mass. Rate controlled currently. Agree with rate control strategy currently. Currently off rivaroxaban. 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 We will look into the ICD details. Thank you for allowing me to participate in the care of your patient. Please feel free to contact me if you have any questions. Procedures Date of Service Date of Service: 08/18/25
--- NOTE | 2025-08-18 14:08 | PC.NURSE ---
patient reported to be in afib with RVR HR 130's per CARDING SUPERVISOR, prn IV metoprolol given per MD, will continue to monitor
--- NOTE | 2025-08-18 16:24 | P.CDIM_ITS ---
PROVIDER RESPONSE TEXT: To clarify, the appropriate diagnosis supported by the clinical indicators: Acute Colitis: acute colits QUERY TEXT: PHYSICIAN'S DOCUMENTATION REQUEST Date of Query: 08/18/2025 11:08 AM EDT Patient Name: Aaron Hernandes Admit Date: 08/09/2025 Dear Arcadio Fletcher MD, A review of the medical record indicates additional documentation may be needed. Please review below and update the documentation accordingly. Clinical Indicators: Progress note dated 08/17/25 - Sepsis due to acute colitis Stool negative Continue Rocephin/Flagyl Based on the above, could you clarify further specificity to the documented Acute Colitis if known? Acute Colitis Infectious, toxic, ulcerative, spastic, drug induced etc. Other specifics Other (explain) Clinically unable to determine (explain) Thank you, Aliyah Alexandre, CCS, CDIS Use of terms such as suspected, likely, concern for, or probable (associated with a specific diagnosis that is being evaluated, monitored, or treated as if it exists) are acceptable and can be coded in the inpatient setting, when documented at the time of discharge. Please use your independent medical judgment in providing your response. THIS QUERY IS PART OF THE PERMANENT MEDICAL RECORD
[2025-08-19] VITALS: BP 114/74; PULSE 80; RESP 14; TEMP 36; O2SAT 94
[2025-08-19] MEDS: oxyCODONE HCl Immed Release 5 MG TABLET 10 MG PO ×2 (02:18→11:12)
[2025-08-19 03:38] VITALS: BP 104/81; PULSE 87; RESP 18; TEMP 36; O2SAT 95
--- NOTE | 2025-08-19 06:15 | PC.NURSE ---
Pt seen on bed, alert and oriented, with forgetfulness,endorsing generalized pain and stiffness, scheduled meds given and complied, pt claimed that he doesn't want to pursue any treatment but desires med to control his pain, slept at intervals, sitter at bedside.
[2025-08-19 07:04] VITALS: BP 129/89; PULSE 85; RESP 16; TEMP 36.2; O2SAT 95
[2025-08-19 08:06] LABS: Anion Gap 12 (12-20); Blood Urea Nitrogen 8 mg/dL (9-16); Calcium 8.4 mg/dL (8.4-10.2); Carbon Dioxide 25 mmol/L (22-29); Chloride 106 mmol/L (96-108); Creatinine Clr Calc Pharmacy 106.1; Estimated Glomerular Filt Rate > 60; Potassium 3.2 mmol/L (3.3-5.1); Sodium 140 mmol/L (135-145)
--- NOTE | 2025-08-19 08:44 | MHC.CM.PN ---
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 HE SAYS HE DOES HAVE CHRONIC SI, BUT DENIES ANY INTENT OR PLAN. HE SAYS HE LOST BOTH OF HIS WIVES, AND IS JUST HAVING A HARDER TIME THAN USUAL PUSHING THROUGH HE DOES NOT SEE A REWARD AT THE END .
[2025-08-19] MEDS: 0.9 % Sodium Chloride Flush 3 ML SYRINGE IVFLUSH (09:15)
[2025-08-19 09:24] VITALS: BP 141/56; PULSE 86; RESP 16; O2SAT 94
[2025-08-19] MEDS: Potassium Chloride ER 20 MEQ TAB.ER.PRT 40 MEQ PO (09:24)
--- NOTE | 2025-08-19 10:26 | PC.NURSE ---
patient refuses sequentials,risks explained,encouraged ambulation
[2025-08-19 11:43] VITALS: BP 112/76; PULSE 76; RESP 16; TEMP 36.6; O2SAT 96
--- NOTE | 2025-08-19 12:56 | P.PNIM_ITS ---
Subjective Subjective Date of Service: 08/19/25 Interval History: colitis Review of Systems seem improving no bleeding Physical Exam 2 Exam: Exam: General: AO X3, acute distress Resp: CTA bilateral, no accessory muscles used CVS: S1,S2,RRR GI: soft, tender, non distended Neuro: motor grossly intact, alert Vital Signs: Vital Signs: Last Vital Signs Temp 98 F 08/19/25 11:43 Pulse 76 08/19/25 11:43 Resp 16 08/19/25 11:43 BP 112/76 08/19/25 11:43 Pulse Ox 96 08/19/25 11:43 O2 Del Method Room Air 08/19/25 11:43 O2 Flow Rate 2 08/15/25 15:52 BMI result Body Mass Index 20.5 Objective Data Active Medications Acetaminophen (Acetaminophen 325 Mg Tablet) 975 mg PO Q6H PRN PRN Reason: Pain, Mild 1-3,fever,headache Last Admin: 08/15/25 15:36 Dose: 975 mg Documented By: USAMA Calcium Carbonate (Calcium Carbonate 750 Mg Tab.Chew) 750 mg PO Q4H PRN PRN Reason: Heartburn Ceftriaxone Sodium (Ceftriaxone Sodium 1 Gm Vial) 1 gm IVPUSH Q24H [facility] Last Admin: 08/19/25 09:17 Dose: 1 gm Documented By: SEAN Clonidine HCl (Clonidine Hcl 0.1 Mg Tablet) 0.1 mg PO TID [facility]; Protocol Last Admin: 08/19/25 09:25 Dose: 0.1 mg Documented By: SEAN Docusate Sodium (Docusate Sodium 100 Mg Capsule) 100 mg PO BID PRN PRN Reason: Constipation Duloxetine HCl (Duloxetine Hcl 30 Mg Capsule.Dr) 30 mg PO BID [facility] Last Admin: 08/19/25 09:25 Dose: 30 mg Documented By: SEAN Hydroxyzine HCl (Hydroxyzine Hcl 25 Mg Tablet) 25 mg PO QID [facility] Last Admin: 08/19/25 09:24 Dose: 25 mg Documented By: SEAN Lisinopril (Lisinopril 5 Mg Tablet) 5 mg PO DAILY [facility]; Protocol Last Admin: 08/19/25 09:25 Dose: 5 mg Documented By: SEAN Magnesium Hydroxide (Milk Of Magnesia 30 Ml Oral.Susp) 30 ml PO DAILY PRN PRN Reason: Constipation Melatonin (Melatonin 3 Mg Tablet) 6 mg PO BEDTIME PRN PRN Reason: Insomnia Last Admin: 08/18/25 22:02 Dose: 6 mg Documented By: CASTILM Methadone HCl (Methadone Hcl 10 Mg Tablet) 10 mg PO BID [facility] Last Admin: 08/19/25 09:26 Dose: 10 mg Documented By: SEAN Metoprolol Tartrate (Metoprolol Tartrate 25 Mg Tablet) 75 mg PO BID [facility]; Protocol Last Admin: 08/19/25 09:25 Dose: 75 mg Documented By: SEAN Metoprolol Tartrate (Metoprolol Tartrate 5 Mg/5 Ml Vial) 2.5 mg IVPUSH Q6H PRN; Protocol PRN Reason: Bp Last Admin: 08/18/25 13:55 Dose: 2.5 mg Documented By: APOLLO Metronidazole (Metronidazole 500 Mg Tablet) 500 mg PO Q8H [facility] Last Admin: 08/19/25 09:24 Dose: 500 mg Documented By: SEAN Nifedipine (Nifedipine Er 60 Mg Tab.Er.24) 60 mg PO DAILY [facility]; Protocol On Hold: 08/18/25 07:45 Last Admin: 08/17/25 08:10 Dose: 60 mg Documented By: GAGE Ondansetron HCl (Ondansetron Hcl 4 Mg/2 Ml Vial) 4 mg IVPUSH Q8H PRN On Hold: 08/17/25 17:44 PRN Reason: Nausea and Vomiting Last Admin: 08/13/25 11:30 Dose: 4 mg Documented By: LUCIAME Oxycodone HCl (Oxycodone Hcl Immed Release 5 Mg Tablet) 10 mg PO Q6H PRN PRN Reason: Pain, Severe (Pain Scale 7-10) Last Admin: 08/19/25 11:12 Dose: 10 mg Documented By: SEAN Sodium Biphosphate/Sodium Phosphate (Sodium Phosphate,Nuckolls-Dibasic 133 Ml Enema) 133 ml MA ONCE PRN PRN Reason: Poor Colonoscopy Prep Results Sodium Chloride (0.9 % Sodium Chloride Flush 3 Ml Syringe) 3 ml IVFLUSH QSHIFT [facility] Last Admin: 08/19/25 09:15 Dose: 3 ml Documented By: SEAN Trazodone HCl (Trazodone Hcl 50 Mg Tablet) 50 mg PO BEDTIME [facility] Last Admin: 08/18/25 22:04 Dose: 50 mg Documented By: FLORINA Labs 08/18/25 06:04 08/19/25 07:37 Labs: Laboratory Results - last 24 hr 08/19/25 08/19/25 07:37 07:44 Hold Purple Top SEE NOTE Anion Gap 12 Estim Creat Clear Calc 106.1 Estimated GFR > 60 Random Glucose 104 Calcium 8.4 Assessment and Plan (1) Acute colitis: Status: Acute Plan 70M PMH mood disorder, pafib on xarelto, IVDU, AICD, HTN, presented with abd pain Sepsis due to acute colitis stool negative continue rocephin/flagyl acute thrombocytopenia possible due to zosyn, changed to rocephin/flagyl, resolved. possible splenic flexure colon mass and possible pancreatic mass gi appreciated - plan for scope es 08/18 unable to get MRCP due to lack of info on AICD acute hypoxic resp failure weaned off o2 suicidal ideation sitter care team prior to discharge-cleared by care team opiate dependence methadone htn nifedipine, clonidine, lopressor pafib lopressor, hold xarelto for possible gi bleed dvt prophylaxis - mechanical due to gi bleed full code reason for continued hospitalization:awaiting placement Quality Stroke Does the patient have a stroke diagnosis?: No VTE Prior VTE?: No VTE Risk Level:: Medical - moderate - high VTE Device Contraindication: N/A - Device Ordered VTE Drug Contraindication: Treatment Not Indicated
--- NOTE | 2025-08-19 13:03 | MHC.CM.PN ---
pt cleard by psych pt is retruning to pepe at 2 today by kimmie
[2025-08-19 13:25] VITALS: BP 124/65; PULSE 79; RESP 16; TEMP 37.1; O2SAT 96
--- NOTE | 2025-08-19 13:32 | PC.NURSE ---
Nurse to Nurse report given to [employer] at [facility]
--- NOTE | 2025-08-19 13:38 | PM.DS ---
DS: Providers Provider Date of Service: 08/19/25 Date of admission: 08/09/25 18:37 Date of discharge: 08/19/25 Primary care physician: Travis Mcarthur MD Consults: 08/09/25 20:20 Consult to Gastroenterology Routine Consulting Provider: Mike Ramirez Reason for consultation: colitis, ?choledocolithiasis on CT normal LFTs Has provider been notified: No 08/09/25 20:51 Consult to Hematology / Oncology Routine Consulting Provider: [facility] Oncology/Hematology Reason for consultation: abnormal A/P CT with ?mass in colon ?pancreatic tumor or lesion Has provider been notified: No 08/09/25 22:55 Consult to Wound Care Routine Reason for consultation: redness to left toes 08/10/25 16:07 Consult for Sitter Routine Reason for consultation: suicidal 08/15/25 11:40 Inpt CARE Team Crisis Consult Stat Comment: Reason for consultation: wants to leave AMA but has SI 08/18/25 07:39 Consult to Cardiology Routine Consulting Provider: [facility] Reason for consultation: nsvt ,afib rvr 08/19/25 09:16 Inpt CARE Team Crisis Consult Routine Comment: Reason for consultation: Medically clear Attending physician on discharge: Arcadio Fletcher Discharging clinician: Arcadio Fletcher DS: Diagnosis Discharge Diagnosis (1) Acute colitis: Status: Acute DS: Summary Hospital Course Hospital Course: HPI: 70-year-old male with a past medical history significant for depression, paroxysmal AFib on Xarelto, IVDU, AICD, DDD, HTN and history of C diff with admission in January 2024, who presented to the ED due to weakness, lower abdominal pain, nausea, vomiting and diarrhea starting this morning. [facility] And he arrived to the ED use including of 8/10 abdominal pain and was covered and liquid stool. The stool is malodorous and appears reddish. He has diffuse tenderness in the lower abdomen. Hospital course: 70M PMH mood disorder, pafib on xarelto, IVDU, AICD, HTN, presented with abd pain-admitted for sepsis due to colitis: Started on IV antibiotics, blood cultures sent. patient seems improved , tolerating diet , no abd pain, blood cultures negative @5days . During hospitalization: Also had acute thrombocytopenia-possible due to zosyn, changed to rocephin/flagyl. Thrombocytopenia improved. possible splenic flexure colon mass and possible pancreatic mass:unable to get MRCP due to lack of info on AICD. cea :20 seen by hemoc and gi during this admsision:gi appreciated -refused endoscopy, offered multiple times: We have discussed risks for refusing endoscopy in detail length including risk of maliganacy and even : Patient understands and still refused, above is also d/w GI as well as patient pcp. Patient was also told that if he needs to get endoscopic done-we will see is consider outpatient GI(Dr Mike ramirez) Follow-up. no new bleeding episode ,h/h stable 10.7/31.9 . Afib : hr flactuates , seems asymptomatic , strongly encouraged to continue p.o. metoprolol which is adjusted to 75 mg p.o. b.i.d. no new bleeding ,consider starting xarelto,moniter cbc outpatient. Hypokalemia repleted and improving. We will give potassium supply limited for 5days , recheck BMP outpatient. htn: Since metoprolol adjusted to 75 mg p.o. b.i.d., we will adjust nifedipine to 30 mg daily. plan: metoprolol adjusted to 75 mg p.o. b.i.d., we will adjust nifedipine to 30 mg daily. Completed antibiotics. Thrombocytopenia resolved Monitor CBC Please reconsider endoscopy-and if patient agrees outpatient follow-up with GI. Above management discussed with the patient in detail length he understand and in agreement with the above plan, time spent 50 minute. All questions answered. Staff was present during conversation. Time Attestation Total time managing care of this patient today: 50 mintues. Discharge Coordination Time (in mins): 50 min Quality: Safe Use of Opioids Does Pt have an Active Cancer Diagnosis on the Problem List?: No Quality: Stroke Does the patient have a stroke diagnosis?: No Physical Exam Exam: Exam: General: AO X3, acute distress Resp: CTA bilateral, no accessory muscles used CVS: S1,S2,RRR GI: soft, tender, non distended Neuro: motor grossly intact, alert Vital Signs: Vital Signs: Last Vital Signs Temp 98.8 F 08/19/25 13:25 Pulse 79 08/19/25 13:25 Resp 16 08/19/25 13:25 BP 124/65 08/19/25 13:25 Pulse Ox 96 08/19/25 13:25 O2 Del Method Room Air 08/19/25 13:25 O2 Flow Rate 2 08/15/25 15:52 BMI result Body Mass Index 20.5 DS: Data Data Completed and Pending Labs on day of discharge: Laboratory Results - last 24 hr 08/19/25 08/19/25 07:37 07:44 Hold Purple Top SEE NOTE Sodium 140 Potassium 3.2 L Chloride 106 Carbon Dioxide 25 Anion Gap 12 BUN 8 L Creatinine 0.62 Estim Creat Clear Calc 106.1 Estimated GFR > 60 Random Glucose 104 Calcium 8.4 Imaging Chest x-ray: My impression: ct abd: 1. Nonspecific colitis from the hepatic flexure to distal sigmoid with concomitant proctitis. No bowel perforation or ischemia. 2. Large amount of stool in the mid to distal transverse colon with an abrupt transition point at the level of the splenic flexure. A mass here cannot be entirely excluded. 3. Cholelithiasis. Questionable choledocholithiasis. Concomitant dilatation of the pancreatic duct for which the possibility of a periampullary tumor or pancreatic head lesion is not entirely excluded. Note is made of progressive pancreatic parenchymal atrophy since the prior study. 4. Additional findings as above. Discharge Plan Discharge Anticipated Discharge Date/Time: 08/19/25 13:05 Patient Disposition: Home, Self-Care Discharge Diagnosis: colitis Referrals: Travis Mcarthur MD [Primary Care Provider, Medical] - 1 Week Yocasta Claros MD [Physician, Hematology & Oncology] - 1 Week Mike Ramirez MD [Physician, Gastroenterology] - 1 Week Discharge Medications: New potassium chloride 10 mEq capsule, extended release 10 meq PO DAILY Qty: 5 0RF magnesium oxide 200 mg magnesium tablet 200 mg PO BID Qty: 20 0RF Continued trazodone 50 mg tablet 1 tab PO BEDTIME Qty: 30 0RF lisinopril 5 mg tablet 1 tab PO DAILY Qty: 30 0RF docusate sodium [Colace] 100 mg Capsule 100 mg PO BID PRN (Reason: Constipation) polyethylene glycol 3350 [Miralax] 17 gram/dose Powder 17 g PO DAILY PRN (Reason: Constipation) sennosides [senna] 8.6 mg Tablet 17.2 mg PO BID PRN (Reason: Constipation) clonidine HCl 0.1 mg tablet 0.1 mg PO TID methadone 10 mg tablet 10 mg PO BID acetaminophen 650 mg Tablet Extended Release 650 mg PO Q6H PRN (Reason: Fever Or Pain) oxycodone 15 mg tablet 15 mg PO QID PRN (Reason: Pain) hydroxyzine HCl 25 mg tablet 25 mg PO QID Xarelto 20 mg tablet 20 mg PO DAILY@1700 duloxetine 30 mg Capsule,Delayed Release(Dr/Ec) 30 mg PO BID Changed nifedipine 60 mg tablet extended release 24hr 30 mg PO DAILY Qty: 90 0RF metoprolol tartrate 50 mg Tablet 75 mg PO BID Qty: 180 0RF Protocol: Hold for SBP/HR < HOLD for SBP < : 90 HOLD for HR < : 60 Discharge Orders: Discharge Order (Routine); Ordered 08/19/25 Ordered By: Arcadio Fletcher Diet: Advance to usual diet Activity on Discharge: As tolerated Stand Alone Forms: Patient Portal Discharge page Print Language: Malagasy Other Ambulatory Orders: Basic Metabolic Panel (Routine) Timeframe: 1 Week Facility: [facility] - Location: Laboratory Ordered By: Arcadio Fletcher Complete Blood Count no Diff (Routine) Timeframe: 1 Week Facility: [facility] - Location: Laboratory Ordered By: Arcadio Fletcher Magnesium (Routine) Timeframe: 1 Week Facility: [facility] - Location: Laboratory Ordered By: Arcadio Fletcher Care Plan Goals: as below. Health Concerns: metoprolol adjusted to 75 mg p.o. b.i.d., we will adjust nifedipine to 30 mg daily. Completed antibiotics. Thrombocytopenia resolved Monitor CBC Please reconsider endoscopy-and if patient agrees outpatient follow-up with GI. Plan of Treatment: As above. Assessment: As above.
== END 2025-08-19 14:15 | disposition home or self-care (01) | DRG 871 ==
LOC: HO.ED 18:45 → HO.EDOVER 18:48 → HO.S3 19:46
PROVIDERS: Hospitalist; Internal Medicine; Physician Assistant; Admitting Provider Internal Medicine; Emergency Provider Emergency Medicine Emergency Medical Services; PCP Internal Medicine; Visit Provider Internal Medicine
DX: A41.9 Sepsis, unspecified organism (principal); J96.01 Acute respiratory failure with hypoxia; F11.20 Opioid dependence, uncomplicated; R45.851 Suicidal ideations; I47.20 Ventricular tachycardia, unspecified; D69.59 Other secondary thrombocytopenia; T36.0X5A Adverse effect of penicillins, initial encounter; K63.9 Disease of intestine, unspecified; K86.9 Disease of pancreas, unspecified; I10 Essential (primary) hypertension; R65.20 Severe sepsis without septic shock; K52.9 Noninfective gastroenteritis and colitis, unspecified; I48.0 Paroxysmal atrial fibrillation; E86.0 Dehydration; Z95.810 Presence of automatic (implantable) cardiac defibrillator; Z79.01 Long term (current) use of anticoagulants; Z79.899 Other long term (current) drug therapy
CPT/HCPCS: 36415; 70450; 71045; 72125; 74177; 80048; 80053; 80076; 82105; 82272; 82378; 83605; 83690; 83735; 84425; 84443; 84484; 85007; 85014; 85018; 85025; 85027; 85610; 86301; 86850; 86900; 86901; 87040; 87493; 87507; 90656; 93005; 93306; 97110; 97162; 97530; 99285; J0616; J0696; J0737; J1160; J1171; J1836; J2270; J2405; J2543; J3411; J3475; J7120; P9047; Q9957; Q9967; S9485

== ENCOUNTER → 2025-08-09 13:28 | Outpatient (BNV) | payer OTHER, SELFPAY | PROVIDERS: Emergency Provider Emergency Medicine Emergency Medical Services; Visit Provider Internal Medicine Cardiovascular Disease | DX: I25.2 Old myocardial infarction (principal); I49.3 Ventricular premature depolarization | CPT/HCPCS: 93010 ==

== ENCOUNTER → 2025-08-09 14:02 | Outpatient (BNV) | payer OTHER, SELFPAY | PROVIDERS: Emergency Provider Emergency Medicine Emergency Medical Services; Visit Provider Radiology Diagnostic Radiology | DX: K80.20 Calculus of gallbladder without cholecystitis without obstruction (principal); K86.89 Other specified diseases of pancreas; M54.2 Cervicalgia; W19.XXXA Unspecified fall, initial encounter; Z04.3 Encounter for examination and observation following other accident | CPT/HCPCS: 70450; 72125; 74177 ==

== ENCOUNTER 2025-08-09 18:37 | Outpatient (BNV) | payer OTHER, SELFPAY | END 2025-08-13 09:16 | PROVIDERS: Admitting Provider Internal Medicine; Emergency Provider Emergency Medicine Emergency Medical Services; PCP Internal Medicine; Visit Provider Radiology Vascular & Interventional Radiology | DX: R09.02 Hypoxemia (principal) | CPT/HCPCS: 71045 ==

== ENCOUNTER 2025-08-09 18:37 | Outpatient (BNV) | payer OTHER, SELFPAY | END 2025-08-18 07:54 | PROVIDERS: Admitting Provider Internal Medicine; Emergency Provider Emergency Medicine Emergency Medical Services; PCP Internal Medicine; Visit Provider Internal Medicine Cardiovascular Disease | DX: R94.31 Abnormal electrocardiogram [ECG] [EKG] (principal); I47.10 Supraventricular tachycardia, unspecified | CPT/HCPCS: 93306 ==

== ENCOUNTER 2025-08-09 18:37 | Outpatient (BNV) | payer OTHER, SELFPAY | END 2025-08-15 18:45 | PROVIDERS: Admitting Provider Internal Medicine; Emergency Provider Emergency Medicine Emergency Medical Services; PCP Internal Medicine; Visit Provider Internal Medicine Cardiovascular Disease | DX: I48.91 Unspecified atrial fibrillation (principal); I25.2 Old myocardial infarction | CPT/HCPCS: 93010 ==

== ENCOUNTER → 2025-08-09 18:37 | Outpatient (BNV) | payer OTHER, SELFPAY | PROVIDERS: Admitting Provider Internal Medicine; Emergency Provider Emergency Medicine Emergency Medical Services; PCP Internal Medicine; Visit Provider Internal Medicine Cardiovascular Disease | DX: I48.91 Unspecified atrial fibrillation (principal) | CPT/HCPCS: 99222 ==

== ENCOUNTER → 2025-08-09 18:37 | Outpatient (BNV) | payer OTHER, SELFPAY | PROVIDERS: Admitting Provider Internal Medicine; Emergency Provider Emergency Medicine Emergency Medical Services; Visit Provider Internal Medicine | DX: K52.9 Noninfective gastroenteritis and colitis, unspecified (principal) | CPT/HCPCS: 99231 ==

== ENCOUNTER → 2025-08-09 18:37 | Outpatient (BNV) | payer OTHER, SELFPAY | PROVIDERS: Admitting Provider Internal Medicine; Emergency Provider Emergency Medicine Emergency Medical Services; PCP Internal Medicine; Visit Provider Internal Medicine Medical Oncology | DX: R93.5 Abnormal findings on diagnostic imaging of other abdominal regions, including retroperitoneum (principal); R10.9 Unspecified abdominal pain; R11.0 Nausea; R11.10 Vomiting, unspecified; R19.7 Diarrhea, unspecified | CPT/HCPCS: 99222 ==

== ENCOUNTER 2025-08-25 10:02 | Inpatient (IN) | payer OTHER, SELFPAY ==
--- NOTE | 2025-08-25 | ECG_ITS ---
Test Reason : sob Blood Pressure : */* mmHG Vent. Rate : 73 BPM Atrial Rate : 73 BPM P-R Int : 214 ms QRS Dur : 76 ms QT Int : 438 ms P-R-T Axes : 72 46 61 degrees QTcB Int : 482 ms Sinus rhythm with 1st degree A-V block Anteroseptal infarct (cited on or before 27-Apr-2024) Abnormal ECG When compared with ECG of 18-Aug-2025 07:54, Sinus rhythm has replaced Atrial fibrillation ST no longer depressed in Anterior leads Nonspecific T wave abnormality no longer evident in Inferior leads T wave inversion no longer evident in Anterolateral leads QT has lengthened Referred By: Generic ED Physician Electronically Signed By: BASSEM ZHOU MD
--- NOTE | ~2025-08-25 | CT_ITS ---
EXAMINATION: CT ABDOMEN PELVIS WITH IV CONTRAST HISTORY: For abdominal pain, diarrhea, vomiting, R/O colitis COMPARISON: Comparison is made with the prior examination dated 08/09/2025. TECHNIQUE: CT scan of the abdomen and pelvis was performed following administration of 85 mL Omnipaque 350 using standard departmental protocol. Coronal and sagittal reformatted images were generated and reviewed. Oral contrast material was not administered at the request of the referring physician. This CT exam was performed with one or more of the following dose reduction techniques: automated exposure control, adjustment of the mA and/or kV according to patient size, use of iterative reconstruction technique. DLP: 553 mGy-cm FINDINGS: LOWER CHEST: The visualized lung bases are clear. There are new small bilateral pleural effusions. CARDIOVASCULATURE: The heart is normal in size. There is no pericardial effusion. Pacemaker wires are identified. LIVER: The liver is normal in size and contour. No liver mass is identified. The hepatic and portal veins are patent. GALLBLADDER / BILE DUCTS: There is cholelithiasis. Again seen is mild dilatation of the common bile duct.. SPLEEN: The spleen is normal in size. No focal splenic lesion is identified. PANCREAS: The pancreas is atrophic. ADRENAL GLANDS: Within normal limits. KIDNEYS/RETROPERITONEUM: There is a 3 mm nonobstructing calculus at the lower pole of the right kidney. There is no hydronephrosis. There is a 2.5 cm cyst at the lower pole of the left kidney. LYMPH NODES: No abdominal or pelvic lymphadenopathy. VASCULATURE: The abdominal aorta demonstrates atherosclerotic calcification, but is normal in caliber. MESENTERY/PERITONEUM: There is presacral fluid. No free fluid. No masses. There is no free intraperitoneal gas. STOMACH: The stomach is collapsed, limiting evaluation. SMALL BOWEL: The small bowel is normal in caliber. COLON: Again seen is a moderate to large amount of stool throughout the colon. There has been interval improvement in previously seen colonic wall thickening which is now most prominent involving the splenic flexure and the rectosigmoid colon. APPENDIX: Normal. URINARY BLADDER/PELVIC ORGANS: The urinary bladder is obscured by streak artifact from bilateral total hip arthroplasties. The prostate is also obscured. BONES / SOFT TISSUES: There is degenerative disc disease of the spine. Again seen is a compression deformity of L1. There is grade I spondylolisthesis of L5 on S1. CT/CT abdomen pelvis w IV con IMPRESSION: 1. Improvement in previously seen diffuse colonic wall thickening which is now most prominent involving the splenic flexure and rectosigmoid colon. Findings are compatible with colitis, which may be infectious, inflammatory, or ischemic in nature. 2. Persistent moderate to large amount of stool throughout the colon. 3. New small bilateral pleural effusions. 4. Cholelithiasis. Electronically signed by: Mike Sultana MD 08/25/2025 01:13 PM EDT
[2025-08-25 10:13] VITALS: BP 146/54; BP 158/96; PULSE 72; PULSE 77; RESP 13; TEMP 36.9; O2SAT 96; O2SAT 97; BMI 22.3
[2025-08-25 10:18] VITALS: BP 146/54; PULSE 77; RESP 13; TEMP 36.9; O2SAT 96
--- NOTE | 2025-08-25 10:20 | PC.NURSE ---
Patient poresents to ED from [facility] Patient c/o SOB and diarrhea for 5 days O2 97% RA Patient also reports nasuea and chills with generalized chronic pain VSS and up to date Provider in to see patient Plan of care on going
[2025-08-25 10:47] LABS: MANUAL DIFF FLAG NO
[2025-08-25 10:58] LABS: INTERNATIONAL NORM RATIO 1.4 (0.9-1.1); Prothrombin Time 16.3 SEC (10.9-12.4)
[2025-08-25 10:59] LABS: Hematocrit 34.4 % (42.0-52.0); Hemoglobin 11.3 g/dl (14.0-18.0); Imm Gran Abs Auto 0.02 X10*3/uL (0.00-0.03); Imm Gran Pct Auto 0.3 % (0.0-0.4); Lymphocytes Absolute Auto 1.1 X10*3/uL (1.2-4.9); Mean Corpuscular HGB Conc 32.8 g/dl (31.0-36.0); Mean Corpuscular Hemoglobin 29.1 pg (27.0-33.0); Mean Corpuscular Volume 88.7 fL (80.0-98.0); NRBC Abs Auto 0.000 X10*3/uL (0.0-0.012); NRBC Pct Auto 0.0 /100WBC (0.0-0.2); Platelet Count 334 X10*3/uL (160-400); Red Blood Count 3.88 X10*6/uL (4.60-5.80); White Blood Count 6.2 X10*3/uL (4.8-10.8)
[2025-08-25 11:05] LABS: Alanine Aminotransferase 13 U/L (0-40); Albumin Level 3.6 g/dL (3.5-5.0); Alkaline Phosphatase 53 U/L (39-117); Anion Gap 10 (12-20); Aspartate Amino Transferase 39 U/L (5-37); Blood Urea Nitrogen 10 mg/dL (9-16); Calcium 9.0 mg/dL (8.4-10.2); Carbon Dioxide 25 mmol/L (22-29); Chloride 108 mmol/L (96-108); Creatinine Clr Calc Pharmacy 100.5; Estimated Glomerular Filt Rate > 60; Magnesium 2.0 mg/dL (1.6-2.6); Potassium 4.0 mmol/L (3.3-5.1); Sodium 139 mmol/L (135-145); Total Protein 7.0 g/dL (6.5-8.0)
[2025-08-25 11:12] LABS: Troponin-I High Sensitivity 39.4 ng/L (<3.5-35.0)
--- NOTE | 2025-08-25 11:13 | ED.NAVMDI ---
HPI - Nausea/Vomiting/Diarrhea General Chief complaint: Dyspnea Stated complaint: DIARRHEA,SOB PER EMS Time Seen by Provider: 08/25/25 10:57 Source: patient Mode of arrival: EMS Limitations: no limitations History of Present Illness ED Provider: Dr. Chito Fraser HPI Narrative: 70-year-old male with a past medical history significant for depression, paroxysmal AFib on Xarelto, IVDU, AICD, DDD, HTN and history of C diff who presents emergency department for evaluation of nausea with no vomiting, diarrhea (7 episodes of loose, brown watery diarrhea since midnight), constant, cramping lower abdominal pain 7/10 worse with movement, very little food and fluid intake for 24 hours. Patient states that he had a subjective fever and chills. He feels short of breath. He has a noted a decrease urinary frequency but no dysuria. He has not dark stools or black stools. Patient lives at [facility] and states that he does not get any help you unable to care for himself. [place] [facility] [place]/19/[place]25. At that time his initial presentation was for weakness, lower abdominal pain, nausea, vomiting and diarrhea similar to today's presentation. Patient initially was felt to be septic secondary to acute colitis and was treated with Zosyn which caused thrombocytopenia and then was changed to ceftriaxone and Flagyl with improvement. Patient was found to have a possible splenic flexure colon mass and possible pancreatic mass but was not completely worked up sentences he review GI workup Related Data Home Medications ?Medication ?Instructions ?Recorded ?Confirmed hydroxyzine HCl 25 mg tablet 25 mg PO QID anxiety/insomnia 12/12/23 08/09/25 rivaroxaban 20 mg tablet (Xarelto) 20 mg PO DAILY@1700 07/04/24 08/09/25 duloxetine 30 mg capsule,delayed 30 mg PO BID 03/23/25 08/09/25 release acetaminophen 650 mg 650 mg PO Q6H PRN Fever Or Pain 08/09/25 08/09/25 tablet,extended release clonidine HCl 0.1 mg tablet 0.1 mg PO TID 08/09/25 08/09/25 docusate sodium 100 mg capsule 100 mg PO BID PRN Constipation 08/09/25 08/09/25 (Colace) methadone 10 mg tablet 10 mg PO BID 08/09/25 08/09/25 oxycodone 15 mg tablet 15 mg PO QID PRN Pain 08/09/25 08/09/25 polyethylene glycol 3350 17 17 g PO DAILY PRN Constipation 08/09/25 08/09/25 gram/dose oral powder (Miralax) sennosides 8.6 mg tablet (senna) 17.2 mg PO BID PRN Constipation 08/09/25 08/09/25 Previous Rx's ?Medication ?Instructions ?Recorded lisinopril 5 mg tablet 1 tab PO DAILY #30 tabs 10/28/22 trazodone 50 mg tablet 1 tab PO BEDTIME #30 tabs 10/28/22 magnesium oxide 200 mg PO BID #20 tabs 08/19/25 metoprolol tartrate 50 mg tablet 75 mg PO BID #180 tabs 08/19/25 potassium chloride 10 mEq 10 meq PO DAILY #5 caps 08/19/25 capsule,extended release nifedipine 30 mg tablet,extended 30 mg PO DAILY #90 tabs 08/22/25 release 24 hr (Procardia XL) Allergies Allergy/AdvReac Type Severity Reaction Status Date / Time ergotamine (ERGOTAMINE) AdvReac Severe NAUSEA Verified 08/25/25 10:14 [facility] Past Medical History Medical History MDD (major depressive disorder), recurrent episode, moderate Paroxysmal atrial fibrillation History of intravenous drug abuse Presence of combination internal cardiac defibrillator (ICD) and pacemaker Ventricular arrhythmia Opioid dependence Lumbar disc herniation Thoracic disc herniation Cervical disc herniation Opioid abuse Pacemaker HTN (hypertension) Surgical History History of spinal fusion History of hip replacement Family History Family History Mother HTN (hypertension) CHF (congestive heart failure) Social History Social History Household Members: Other Household Members Other:: lives with other roommates Housing: Other Housing Other:: bharat Do you presently have visiting nurse or other home services: No Alcohol intake: former Comment: 1-1 sitter Patient Tobacco Use Status: Never used Tobacco Smoked in Last 30 Days: No e-Cigarette/Vaping Use: Never Used Second Hand Smoke Exposure: No Use of substances other than those prescribed or required for medical reasons: No Substance Use Type: Marijuana Advance Directives: Yes Advance Directives on File: Yes Advance Directives Date on File: 04/29/24 Do you have a plan to hurt others: No Plan service: No Current occupational status: retired and disabled Sexual orientation: Straight/Heterosexual Physical Exam Vital Signs: Vital Signs: Last Vital Signs Temp 98.4 F 08/25/25 10:18 Pulse 74 08/25/25 12:00 Resp 16 08/25/25 12:00 BP 146/85 H 08/25/25 12:00 Pulse Ox 97 08/25/25 12:00 O2 Del Method Room Air 08/25/25 12:00 BMI result Body Mass Index 22.3 Vital signs revealed an elevated blood pressure otherwise unremarkable Exam: General: Awake, alert in no distress Head: Normocephalic, atraumatic EENT: PERRL, sclera and conjunctiva are normal, mouth with no erythema or exudates Neck: Supple, no adenopathy Lung: breath sounds symmetric, no wheezing, no rales and no rhonchi Chest: symmetric movement, nontender Heart: regular rate and rhythm, normal S1, S2 no murmurs or rubs Abdomen: soft, moderate left lower and right lower quadrant tenderness, mild to moderate left upper quadrant tenderness, nondistended, normal bowel sounds Back: no vertebral tenderness, no CVAT Extremities: no deformities, moves all extremities symmetrically, no edema Neuro: Awake, alert, oriented, normal speech, cranial nerves 2-12 intact, moves all extremities symmetrically Psych: Pleasant, cooperative Medications Administered Discontinued Medications Generic Name Dose Route Start Last Admin Trade Name Kadenq PRN Reason Stop Dose Admin Sodium Chloride 1,000 mls @ 999 mls/hr 08/25/25 11:22 08/25/25 12:57 Ns IV 08/25/25 12:22 Infused .Q1H1M STA Infusion Ceftriaxone Sodium 1 gm/ 50 mls @ 100 mls/hr 08/25/25 13:50 08/25/25 14:20 Sodium Chloride IV 08/25/25 14:19 Infused ONCE ONE Infusion Metronidazole 500 mg in 100 mls @ 100 mls/hr 08/25/25 13:50 08/25/25 14:14 Flagyl IV 08/25/25 14:49 100 mls/hr ONCE ONE Administration Iohexol 100 ml 08/25/25 12:36 08/25/25 12:37 Iohexol 350 Mg/Ml 100 Ml Infus..Btl IV 08/25/25 12:37 85 ml ONCE ONE Administration Morphine Sulfate 4 mg 08/25/25 11:22 08/25/25 11:56 Morphine Sulfate 4 Mg/Ml Cartridge IVPUSH 08/25/25 11:23 4 mg ONCE STA Administration Protocol Ondansetron HCl 4 mg 08/25/25 11:22 08/25/25 11:56 Ondansetron Hcl 4 Mg/2 Ml Vial IVPUSH 08/25/25 11:23 4 mg ONCE ONE Administration Medical Decision Making Medical Decision Making MDM Narrative: 70-year-old male with a past medical history significant for depression, paroxysmal AFib on Xarelto, IVDU, AICD, DDD, HTN and history of C diff who presents emergency department for evaluation of nausea with no vomiting, diarrhea (7 episodes of loose, brown watery diarrhea since midnight), constant, cramping lower abdominal pain 7/10 worse with movement, very little food and fluid intake for 24 hours. Patient states that he had a subjective fever and chills. He feels short of breath. He has a noted a decrease urinary frequency but no dysuria. He did not dark stools or black stools. Patient lives at [facility] and states that he does not get any help you unable to care for himself. Patient was recently hospitalized from 08/09/2025 until 08/19/2025 for acute colitis, possible splenic flexure colon mask versus pancreatitis but refused full GI workup. Vital signs revealed an elevated blood pressure otherwise unremarkable. Exam revealed mild to moderate left upper quadrant tenderness and moderate left lower and right lower quadrant tenderness. Differential diagnosis: ?Includes but is not limited to infectious colitis, ischemic colitis, C difficile colitis, colonic malignancy, pancreatitis, diverticulitis, anemia, electrolyte abnormalities Course: Patient was treated with morphine 4 mg IV, Zofran 4 mg IV and normal saline x1 L 13:34 hours My independent interpretation patient's laboratory evaluation as follows: White blood counts normal 6200. Chronic, normocytic anemia with an H&H of 11.3 and 34.4. Platelet count was normal 334,000. Coags revealed an elevated PT INR of 16.3 and 1.4. Elevated PTT of 35.5-the patient is on Xarelto this most likely explains the elevations. VBG revealed an elevated pH of 7.47 otherwise unremarkable. Lactic acid was normal at 1.0. AST elevated 34. Troponin was elevated 39.4. Repeat troponin pending. CRP elevated 1.27. ESR elevated 41. CT scan revealed improve in the patient's previous colonic wall thickening however there is still thickening of the colonic wall involving the splenic flexure and rectosigmoid colon which is compatible with colitis (infectious, inflammatory or ischemic). Patient states that his abdominal pain improved with the above treatment. Previous admission, GI panel was negative therefore I will not repeat this. Patient's previous C diff was negative however , will repeat a C diff if we can get a stool sample from him . The patient has not been a to eat and drink for the last 24 hours, had and least 7 loose stools and continues to have colitis, therefore I do not think that he will do well if you discharge him at this time. I will discuss admission with the hospitalist service Patient has colitis we treated with ceftriaxone 1 g IV and metronidazole 500 mg IV. 15:00 I did discuss the patient's presentation over tiger text with the admitting hospitalist, physician nursing home assistant administrator Nicolle Ayala and the patient will be admitted for further treatment and diagnostic workup. Differential Diagnosis Differential Diagnoses: The differential diagnosis associated with the presentation includes (See above) Admission/Observation Consideration of admission/observation: Escalation of care including admission/observation considered (Yes) Consult Healthcare Provider Management of the patient was discussed with: Hospitalist Lab Data MDM Lab Attestation statement: I reviewed the patient's lab results. 08/25/25 10:36 08/25/25 10:36 Labs: Lab Results 08/25/25 08/25/25 08/25/25 Range/Units 10:36 11:40 11:47 WBC 6.2 (4.8-10.8) X10*3/uL RBC 3.88 L (4.60-5.80) X10*6/uL Hgb 11.3 L (14.0-18.0) g/dl Hct 34.4 L (42.0-52.0) % MCV 88.7 (80.0-98.0) fL MCH 29.1 (27.0-33.0) pg MCHC 32.8 (31.0-36.0) g/dl RDW 13.8 (11.0-16.0) % Plt Count 334 (160-400) X10*3/uL MPV 9.9 (9.4-12.4) fL Immature Gran % (Auto) 0.3 (0.0-0.4) % Neut % (Auto) 73.9 H (45-73) % Lymph % (Auto) 17.6 L (20-40) % Reagan % (Auto) 7.0 (2-11) % Eos % (Auto) 0.7 (0-4) % Baso % (Auto) 0.5 (0-2) % Lymph # (Auto) 1.1 L (1.2-4.9) X10*3/uL Reagan # (Auto) 0.4 (0.1-1.2) X10*3/uL Eos # (Auto) 0.0 (0.0-0.4) X10*3/uL Baso # (Auto) 0.0 (0.0-0.2) X10*3/uL Abs Immat Gran (auto) 0.02 (0.00-0.03) X10*3/uL Absolute Neuts (auto) 4.6 (2.0-8.3) x10*3/uL Absolute Nucleated RBC 0.000 (0.0-0.012) X10*3/uL Nucleated RBC % (auto) 0.0 (0.0-0.2) /100WBC ESR 42 H (0-15) MM/HR PT 16.3 H (10.9-12.4) SEC INR 1.4 H (0.9-1.1) APTT 35.3 H (26.7-34.1) SEC VBG pH (7.32-7.43) VBG pCO2 mmHg VBG pO2 mmHg VBG HCO3 (22-26) mmol/L VBG O2 Saturation % VBG Base Excess mmol/L Sodium 139 (135-145) mmol/L Potassium 4.0 D (3.3-5.1) mmol/L Chloride 108 (96-108) mmol/L Carbon Dioxide 25 (22-29) mmol/L Anion Gap 10 L (12-20) BUN 10 (9-16) mg/dL Creatinine 0.69 (0.5-1.4) mg/dL Estim Creat Clear Calc 100.5 Estimated GFR > 60 Random Glucose 95 (60-115) mg/dL Lactic Acid 1.0 (0.5-2.0) mmol/L Calcium 9.0 D (8.4-10.2) mg/dL Magnesium 2.0 (1.6-2.6) mg/dL Total Bilirubin 0.3 (0.0-1.0) mg/dL AST 39 H (5-37) U/L ALT 13 (0-40) U/L Alkaline Phosphatase 53 (39-117) U/L Total Creatine Kinase 37 L (38-174) U/L Troponin I High Sens 39.4 H D (<3.5-35.0) ng/L C-Reactive Protein 1.27 H (< or = 0.50) mg/dL Total Protein 7.0 (6.5-8.0) g/dL Albumin 3.6 (3.5-5.0) g/dL COVID-19 ([facility]OR) Negative (Negative) COVID-19 Clin Com See Note Influenza Type A (LUIS) Negative (Negative) Influenza Type B (LUIS) Negative (Negative) Influenza A & B Note See Note 08/25/25 08/25/25 Range/Units 11:49 13:58 WBC (4.8-10.8) X10*3/uL RBC (4.60-5.80) X10*6/uL Hgb (14.0-18.0) g/dl Hct (42.0-52.0) % MCV (80.0-98.0) fL MCH (27.0-33.0) pg MCHC (31.0-36.0) g/dl RDW (11.0-16.0) % Plt Count (160-400) X10*3/uL MPV (9.4-12.4) fL Immature Gran % (Auto) (0.0-0.4) % Neut % (Auto) (45-73) % Lymph % (Auto) (20-40) % Reagan % (Auto) (2-11) % Eos % (Auto) (0-4) % Baso % (Auto) (0-2) % Lymph # (Auto) (1.2-4.9) X10*3/uL Reagan # (Auto) (0.1-1.2) X10*3/uL Eos # (Auto) (0.0-0.4) X10*3/uL Baso # (Auto) (0.0-0.2) X10*3/uL Abs Immat Gran (auto) (0.00-0.03) X10*3/uL Absolute Neuts (auto) (2.0-8.3) x10*3/uL Absolute Nucleated RBC (0.0-0.012) X10*3/uL Nucleated RBC % (auto) (0.0-0.2) /100WBC ESR (0-15) MM/HR PT (10.9-12.4) SEC INR (0.9-1.1) APTT (26.7-34.1) SEC VBG pH 7.47 H (7.32-7.43) VBG pCO2 35 mmHg VBG pO2 62 mmHg VBG HCO3 26 (22-26) mmol/L VBG O2 Saturation 91.0 % VBG Base Excess 3.0 mmol/L Sodium (135-145) mmol/L Potassium (3.3-5.1) mmol/L Chloride (96-108) mmol/L Carbon Dioxide (22-29) mmol/L Anion Gap (12-20) BUN (9-16) mg/dL Creatinine (0.5-1.4) mg/dL Estim Creat Clear Calc Estimated GFR Random Glucose (60-115) mg/dL Lactic Acid (0.5-2.0) mmol/L Calcium (8.4-10.2) mg/dL Magnesium (1.6-2.6) mg/dL Total Bilirubin (0.0-1.0) mg/dL AST (5-37) U/L ALT (0-40) U/L Alkaline Phosphatase (39-117) U/L Total Creatine Kinase (38-174) U/L Troponin I High Sens 41.0 H (<3.5-35.0) ng/L C-Reactive Protein (< or = 0.50) mg/dL Total Protein (6.5-8.0) g/dL Albumin (3.5-5.0) g/dL COVID-19 ([facility]) (Negative) COVID-19 Clin Com Influenza Type A ([facility]IS) (Negative) Influenza Type B (LUIS) (Negative) Influenza A & B Note Independent Interpretation I performed an independent interpretation of an: EKG Interpretation: My independent interpretation patient's 12 EKG done on 08/25/2025 at 11:04 hours is as follows: Sinus rhythm with a rate of 73, first-degree AV block with a AK interval of 214 milliseconds, normal QRS duration, prolonged QTC interval 482 milliseconds, Q-waves V1 through V3, no ST segment elevation, no ST segment depression, no significant T-wave abnormalities. Compared to EKG date at 07:50 hours, Q-wave in V1 and V2 were present, patient did have a RS complex and V3 but I think that this has lead placement compared to a significant change from today's EKG. Radiology Impression Discussion of test interpretation with radiology: I have reviewed the radiologist's reading. Radiologist Impression: CT abdomen pelvis w IV con IMPRESSION: 1. Improvement in previously seen diffuse colonic wall thickening which is now most prominent involving the splenic flexure and rectosigmoid colon. Findings are compatible with colitis, which may be infectious, inflammatory, or ischemic in nature. 2. Persistent moderate to large amount of stool throughout the colon. 3. New small bilateral pleural effusions. 4. Cholelithiasis. Electronically signed by: Mike Sultana MD 08/25/2025 01:13 PM EDT Chronic Conditions Patient?s care impacted by: Hypertension and Other (Atrial fibrillation on Xarelto) Critical Care Time Critical Care Time Critical Care Time: Yes Total Critical Care Time: 45 Attestation: Critical Care: The patient was critically ill with a high probability of imminent or life threatening deterioration. I spent greater than 30 minutes of discontinuous time evaluating the patient,delivering critical care at the bedside, discussing and evaluating pertinent data with consultants. Critical care time does not include time spent performing separately billable procedures or teaching. Total time spent performing critical care was 45 minutes. Discharge Plan Discharge Patient Disposition: Admitted As Inpatient Print Language: Tuvaluan
[2025-08-25 11:52] LABS: Partial Thromboplastin Time 35.3 SEC (26.7-34.1)
[2025-08-25 12:00] VITALS: BP 146/85; PULSE 74; RESP 16; O2SAT 97
[2025-08-25 12:04] LABS: Venous Blood Gas Refer to POC result
[2025-08-25 12:05] LABS: VBG HCO3 26 mmol/L (22-26); VBG O2 % Saturation 91.0 %
[2025-08-25 12:18] LABS: COVID-19 Test Negative (Negative); IDNOW Serial# 152EDE1D; IDNOW Serial# 16C4AD1C; Influenza B2 Negative (Negative)
[2025-08-25] MEDS: iohexoL 350 MG/ML 100 ML INFUS..BTL IV (12:37)
[2025-08-25] MEDS: metroNIDAZOLE/NS 500 MG/100 ML PIGGYBACK 100 MG IV ×2 (14:14→21:13)
[2025-08-25 14:35] LABS: Troponin-I High Sensitivity 41.0 ng/L (<3.5-35.0)
--- NOTE | 2025-08-25 15:06 | P.HPHOSP_ITS ---
History of Present Illness Date of Service: 08/25/25 Chief Complaint: diarrhea, sob The patient is a 70-year-old male with a history of depression, paroxysmal atrial fibrillation on rivaroxaban, intravenous drug use, AICD/DDD pacemaker, hypertension, and prior C. difficile infection. He presents to the emergency department with complaints of nausea (without vomiting), and approximately 7 episodes of loose, brown, watery diarrhea since midnight. He reports constant, cramping lower abdominal pain rated 7/10, which worsens with movement. He has had minimal oral intake of food and fluids over the past 24 hours. He was recently hospitalized from 08/09/2025 to 08/19/2025 for acute colitis, with a differential diagnosis of splenic flexure colonic mass versus pancreatitis. During that admission, he refused a full GI workup, including both EGD and colonoscopy. C. difficile and GI panel were negative at that time. He was treated with piperacillin/tazobactam, which resulted in thrombocytopenia. Today CT show: mprovement in previously seen diffuse colonic wall thickening which is now most prominent involving the splenic flexure and rectosigmoid colon. Findings are compatible with colitis, which may be infectious, inflammatory, or ischemic in nature. [facility] Medical History MDD (major depressive disorder), recurrent episode, moderate Paroxysmal atrial fibrillation History of intravenous drug abuse Presence of combination internal cardiac defibrillator (ICD) and pacemaker Ventricular arrhythmia Opioid dependence Lumbar disc herniation Thoracic disc herniation Cervical disc herniation Opioid abuse Pacemaker HTN (hypertension) Family History Mother HTN (hypertension) CHF (congestive heart failure) Surgical History History of spinal fusion History of hip replacement Social History Household Members: Other Household Members Other:: lives with other roommates Housing: Other Housing Other:: bharat Do you presently have visiting nurse or other home services: No Alcohol intake: former Comment: 1-1 sitter Patient Tobacco Use Status: Never used Tobacco Smoked in Last 30 Days: No e-Cigarette/Vaping Use: Never Used Second Hand Smoke Exposure: No Use of substances other than those prescribed or required for medical reasons: No Substance Use Type: Marijuana Advance Directives: Yes Advance Directives on File: Yes Advance Directives Date on File: 04/29/24 Do you have a plan to hurt others: No Plan service: No Current occupational status: retired and disabled Sexual orientation: Straight/Heterosexual Meds Allergies Allergy/AdvReac Type Severity Reaction Status Date / Time ergotamine (ERGOTAMINE) AdvReac Severe NAUSEA Verified 08/25/25 10:14 Home Medications ?Medication ?Instructions ?Recorded ?Confirmed ?Last Taken ?Type hydroxyzine HCl 25 mg tablet 25 mg PO QID anxiety/inso mnia 12/12/23 08/09/25 Unknown History rivaroxaban 20 mg tablet (Xarelto) 20 mg PO DAILY@1700 07/04/24 08/09/25 06/13/25 History duloxetine 30 mg capsule,delayed 30 mg PO BID 03/23/25 08/09/25 06/14/25 History release acetaminophen 650 mg 650 mg PO Q6H PRN Fever Or P ain 08/09/25 08/09/25 Unknown History tablet,extended release clonidine HCl 0.1 mg tablet 0.1 mg PO TID 08/09/2506/26 Unknown History docusate sodium 100 mg capsule 100 mg PO BID PRN Const ipation 08/09/25 08/09/25 Unknown History (Colace) methadone 10 mg tablet 10 mg PO BID 08/09/25 Unknown History oxycodone 15 mg tablet 15 mg PO QID PRN Pain 08/09/25 Unknown History polyethylene glycol 3350 17 17 g PO DAILY PRN Constipa tion 08/09/25 08/09/25 Unknown History gram/dose oral powder (Miralax) sennosides 8.6 mg tablet (senna) 17.2 mg PO BID PRN Co nstipation 08/09/25 08/09/25 Unknown History magnesium oxide 400 mg (241.3 mg 400 mg PO DAILY 08/25 Unknown History magnesium) tablet Physical Exam 2 Vital Signs and Narrative: Vital Signs: Last Vital Signs Temp 98.4 F 08/25/25 10:18 Pulse 74 08/25/25 12:00 Resp 16 08/25/25 12:00 BP 146/85 H 08/25/25 12:00 Pulse Ox 97 08/25/25 12:00 O2 Del Method Room Air 08/25/25 12:00 BMI result Body Mass Index 22.3 Const: Other: General: AO X 3, no acute distress Resp: CTA bilateral CVS: S1,S2,RRR GI: Abdomen:?Mild to moderate tenderness in the left upper quadrant; moderate tenderness in the left lower and right lower quadrants. Skin: No rash Neuro: motor grossly intact Psych: appropriate affect Results Labs 08/25/25 10:36 08/25/25 10:36 Labs: Laboratory Results - last 24 hr 08/25/25 08/25/25 08/25/25 10:36 11:40 11:47 MCV 88.7 MCH 29.1 MCHC 32.8 RDW 13.8 Plt Count 334 MPV 9.9 Immature Gran % (Auto) 0.3 Neut % (Auto) 73.9 H Lymph % (Auto) 17.6 L Garden % (Auto) 7.0 Eos % (Auto) 0.7 Baso % (Auto) 0.5 Lymph # (Auto) 1.1 L Garden # (Auto) 0.4 Eos # (Auto) 0.0 Baso # (Auto) 0.0 Abs Immat Gran (auto) 0.02 Absolute Neuts (auto) 4.6 Absolute Nucleated RBC 0.000 Nucleated RBC % (auto) 0.0 ESR 42 H PT 16.3 H INR 1.4 H APTT 35.3 H VBG pH VBG pCO2 VBG pO2 VBG HCO3 VBG O2 Saturation VBG Base Excess Anion Gap 10 L Estim Creat Clear Calc 100.5 Estimated GFR > 60 Random Glucose 95 Lactic Acid 1.0 Calcium 9.0 D Magnesium 2.0 Total Bilirubin 0.3 AST 39 H ALT 13 Alkaline Phosphatase 53 Total Creatine Kinase 37 L Troponin I High Sens 39.4 H D C-Reactive Protein 1.27 H Total Protein 7.0 Albumin 3.6 COVID-19 ([facility]) Negative COVID-19 Clin Com See Note Influenza Type A (LUIS) Negative Influenza Type B (LUIS) Negative Influenza A & B Note See Note 08/25/25 08/25/25 11:49 13:58 MCV MCH MCHC RDW Plt Count MPV Immature Gran % (Auto) Neut % (Auto) Lymph % (Auto) Garden % (Auto) Eos % (Auto) Baso % (Auto) Lymph # (Auto) Garden # (Auto) Eos # (Auto) Baso # (Auto) Abs Immat Gran (auto) Absolute Neuts (auto) Absolute Nucleated RBC Nucleated RBC % (auto) ESR PT INR APTT VBG pH 7.47 H VBG pCO2 35 VBG pO2 62 VBG HCO3 26 VBG O2 Saturation 91.0 VBG Base Excess 3.0 Anion Gap Estim Creat Clear Calc Estimated GFR Random Glucose Lactic Acid Calcium Magnesium Total Bilirubin AST ALT Alkaline Phosphatase Total Creatine Kinase Troponin I High Sens 41.0 H C-Reactive Protein Total Protein Albumin COVID-19 ([facility]) COVID-19 Clin Com Influenza Type A (LUIS) Influenza Type B (LUIS) Influenza A & B Note Imaging Radiologist's Impressions: Impressions Abdomen/Pelvis CT 08/25/25 12:31 IMPRESSION: 1. Improvement in previously seen diffuse colonic wall thickening which is now most prominent involving the splenic flexure and rectosigmoid colon. Findings are compatible with colitis, which may be infectious, inflammatory, or ischemic in nature. 2. Persistent moderate to large amount of stool throughout the colon. 3. New small bilateral pleural effusions. 4. Cholelithiasis. Electronically signed by: Mike Sultana MD 08/25/2025 01:13 PM EDT RP Assessment and Plan (1) Acute colitis: Status: Acute Plan 70-year-old male with a complex medical history presenting with acute on chronic colitis, manifesting as nausea, diarrhea, and abdominal pain. Recent hospitalization for similar symptoms with negative infectious workup and partial improvement on imaging. Current labs notable for elevated CRP and troponin. Treated empirically with ceftriaxone and metronidazole due to prior thrombocytopenia with Zosyn. Awaiting further infectious workup. 70M PMH mood disorder, pafib on xarelto, IVDU, AICD, HTN, presented with abd pain, diarrhea, nassea,recent diagnosis of colitis with unfinished work up Acute colitis, previously treated with zosyn resulting in thrombocytopenia continue flagyl and ceftriaxone reconsult gi IVF, antiemtics, pain medication s recent acute thrombocytopenia attributed to zosyn plat now normal possible splenic flexure colon mass and possible pancreatic mass previously MRCP could not be done d/t lack info on AICD reconsult gi, he is saying he will go for procedure now SOb, no hypoxia, no PNA O2 PRN opiate dependence methadone when dose verified htn resume home meds per med rec pafib lopressor, hold xarelto for possible gi procedure dvt prophylaxis - for now full code Diet clear liquid diet reason for continued hospitalization:plan for scope, hypoxia Plan: * Acute colitis, persistent symptoms: * Continue IV ceftriaxone and metronidazole * Monitor for clinical improvement and adverse reactions * Await C. difficile PCR and adjust antibiotics if positive * Supportive care: IV fluids, electrolyte monitoring, bowel rest as needed * Serial abdominal exams and monitoring for signs of peritonitis or clinical deterioration * Consider GI consult if symptoms persist or worsen * Atrial fibrillation on rivaroxaban: * Continue anticoagulation if no evidence of active GI bleeding * Monitor for bleeding, especially with ongoing diarrhea * History of thrombocytopenia with Zosyn: * Avoid piperacillin/tazobactam * Monitor platelet count during current antibiotic therapy * Hypertension: * Monitor blood pressure and adjust antihypertensive therapy as needed * Depression: * Continue home psychiatric medications * Monitor for changes in mental status * Pain and nausea: * Continue antiemetics (ondansetron) and analgesia as needed, avoiding excessive opioids * Recent elevated troponin: * Repeat troponin and monitor for cardiac symptoms * Consider cardiology consult if troponin remains elevated or if new symptoms develop * Follow-up: * Monitor labs, including CBC, renal function, CRP, and troponin * Reassess after C. difficile results and clinical response to therapy * Arrange for outpatient follow-up as indicated upon discharge Quality Stroke Does the patient have a stroke diagnosis?: No VTE Prior VTE?: No VTE Risk Level:: Medical - moderate - high VTE Device Contraindication: N/A - Device Ordered VTE Drug Contraindication: Treatment Not Indicated
[2025-08-25 16:04] LABS: CDiff Gene PCR NEGATIVE (Negative)
[2025-08-25] MEDS: Lactated Ringers 1,000 ML 125 ML IVCONT ×2 (16:16→23:59)
[2025-08-25 16:20] VITALS: BP 149/88; PULSE 76; RESP 14; TEMP 36.9; O2SAT 97
[2025-08-25 16:28] VITALS: RESP 14
--- NOTE | 2025-08-25 18:24 | PHA.MEDREC ---
Pharmacy Consult ? Medication Reconciliation Pharmacy has completed the medication reconciliation. Spoke to ALEKSANDR Garcia at [facility] [phone] via phone and she gave a verbal med list. She confirmed pt is taking oxycodone 15 mg q6h prn pain and methadone 5 mg q6h prn pain, metoprolol tart 75 mg bid, xarelto 20 mg daily with evening meals. Last dose of medications was this morning 08/25/25.
[2025-08-25 19:53] VITALS: BP 164/87; PULSE 82; RESP 18; TEMP 36.3; O2SAT 93
[2025-08-25] MEDS: oxyCODONE HCl Immed Release 5 MG TABLET 10 MG PO (23:55)
[2025-08-26 03:54] VITALS: BP 158/93; PULSE 74; RESP 18; TEMP 36.3; O2SAT 92
[2025-08-26] MEDS: oxyCODONE HCl Immed Release 5 MG TABLET 10 MG PO ×3 (05:58→19:21)
[2025-08-26] MEDS: metroNIDAZOLE/NS 500 MG/100 ML PIGGYBACK 100 MG IV ×3 (05:59→21:27)
[2025-08-26 06:37] LABS: Alanine Aminotransferase 12 U/L (0-40); Albumin Level 3.4 g/dL (3.5-5.0); Alkaline Phosphatase 52 U/L (39-117); Anion Gap 12 (12-20); Aspartate Amino Transferase 34 U/L (5-37); Blood Urea Nitrogen 9 mg/dL (9-16); Calcium 8.9 mg/dL (8.4-10.2); Carbon Dioxide 24 mmol/L (22-29); Chloride 108 mmol/L (96-108); Creatinine Clr Calc Pharmacy 105.1; Estimated Glomerular Filt Rate > 60; Potassium 5.3 mmol/L (3.3-5.1); Sodium 139 mmol/L (135-145); Total Protein 6.6 g/dL (6.5-8.0)
[2025-08-26 07:03] VITALS: BP 152/90; PULSE 69; RESP 16; TEMP 36.6; O2SAT 91
[2025-08-26] MEDS: Lactated Ringers 1,000 ML 125 ML IVCONT ×3 (08:09→23:49)
--- NOTE | 2025-08-26 08:58 | P.PNIM_ITS ---
Subjective Subjective Date of Service: 08/26/25 Interval History: f/u abdominal pain, colitis reporting severe pain this morning and doesn't feel like living Physical Exam 2 Vital Signs: Vital Signs: Last Vital Signs Temp 97.8 F 08/26/25 07:03 Pulse 69 08/26/25 07:03 Resp 16 08/26/25 07:03 BP 152/90 H 08/26/25 07:03 Pulse Ox 91 L 08/26/25 07:03 O2 Del Method Room Air 08/26/25 07:03 BMI result Body Mass Index 22.3 Const: Other: General: AO X 3, no acute distress Resp: CTA bilateral CVS: S1,S2,RRR GI: Abdomen:?Mild to moderate tenderness in the left upper quadrant; moderate tenderness in the left lower and right lower quadrants. Skin: No rash Neuro: motor grossly intact Psych: appropriate affect Objective Data Active Medications Acetaminophen (Acetaminophen 325 Mg Tablet) 650 mg PO Q6H PRN PRN Reason: Pain, Mild 1-3,fever,headache Calcium Carbonate (Calcium Carbonate 750 Mg Tab.Chew) 750 mg PO Q4H PRN PRN Reason: Heartburn Clonidine HCl (Clonidine Hcl 0.1 Mg Tablet) 0.1 mg PO TID [facility]; Protocol Last Admin: 08/25/25 21:53 Dose: 0.1 mg Documented By: NANDA Docusate Sodium (Docusate Sodium 100 Mg Capsule) 100 mg PO BID PRN PRN Reason: Constipation Duloxetine HCl (Duloxetine Hcl 30 Mg Capsule.Dr) 30 mg PO BID [facility] Hydroxyzine HCl (Hydroxyzine Hcl 25 Mg Tablet) 25 mg PO QID [facility] Lactated Ringer's (Lr) 1,000 mls @ 125 mls/hr IVCONT .Q8H [facility] Last Admin: 08/26/25 08:09 Dose: 125 mls/hr Documented By: USAAM Metronidazole (Flagyl) 500 mg in 100 mls @ 100 mls/hr IV Q8H [facility] Last Infusion: 08/26/25 06:59 Dose: Infused Documented By: USAMA Ceftriaxone Sodium 1 gm/ (Sodium Chloride) 50 mls @ 100 mls/hr IV DAILY [facility] Last Infusion: 08/26/25 08:39 Dose: Infused Documented By: USAMA Lisinopril (Lisinopril 5 Mg Tablet) 5 mg PO DAILY [facility]; Protocol Magnesium Hydroxide (Milk Of Magnesia 30 Ml Oral.Susp) 30 ml PO DAILY PRN PRN Reason: Constipation Magnesium Oxide (Magnesium Oxide 400 Mg Tablet) 200 mg PO BID [facility] Melatonin (Melatonin 3 Mg Tablet) 6 mg PO BEDTIME PRN PRN Reason: Insomnia Last Admin: 08/25/25 23:57 Dose: 6 mg Documented By: NANDA Metoprolol Tartrate (Metoprolol Tartrate 25 Mg Tablet) 75 mg PO BID [facility]; Protocol Last Admin: 08/25/25 21:53 Dose: 75 mg Documented By: NANDA Morphine Sulfate (Morphine Sulfate 4 Mg/Ml Cartridge) 3 mg IVPUSH Q4H PRN; Protocol PRN Reason: Pain, Moderate(Pain Scale 4-6) Nifedipine (Nifedipine Er 30 Mg Tab.Er.24) 30 mg PO DAILY [facility]; Protocol Ondansetron HCl (Ondansetron Hcl 4 Mg/2 Ml Vial) 4 mg IVPUSH Q8H PRN PRN Reason: Nausea and Vomiting Oxycodone HCl (Oxycodone Hcl Immed Release 5 Mg Tablet) 10 mg PO Q6H PRN PRN Reason: Pain, Moderate(Pain Scale 4-6) Last Admin: 08/26/25 05:58 Dose: 10 mg Documented By: NANDA Potassium Chloride (Potassium Chloride Er 10 Meq Tablet.Er) 10 meq PO DAILY [facility] Senna (Sennosides 8.6 Mg Tablet) 17.2 mg PO BID PRN PRN Reason: Constipation Sodium Chloride (0.9 % Sodium Chloride Flush 3 Ml Syringe) 3 ml IVFLUSH QSHIFT [facility] Last Admin: 08/26/25 07:33 Dose: Not Given Documented By: USAMA Non-Admin Reason: IV Running Trazodone HCl (Trazodone Hcl 50 Mg Tablet) 50 mg PO BEDTIME [facility] Labs 08/25/25 10:36 08/26/25 05:47 Labs: Laboratory Results - last 24 hr 08/25/25 08/25/25 08/25/25 10:36 11:40 11:47 MCV 88.7 MCH 29.1 MCHC 32.8 RDW 13.8 Plt Count 334 MPV 9.9 Immature Gran % (Auto) 0.3 Neut % (Auto) 73.9 H Lymph % (Auto) 17.6 L Webb % (Auto) 7.0 Eos % (Auto) 0.7 Baso % (Auto) 0.5 Lymph # (Auto) 1.1 L Webb # (Auto) 0.4 Eos # (Auto) 0.0 Baso # (Auto) 0.0 Abs Immat Gran (auto) 0.02 Absolute Neuts (auto) 4.6 Absolute Nucleated RBC 0.000 Nucleated RBC % (auto) 0.0 ESR 42 H Hold Purple Top PT 16.3 H INR 1.4 H APTT 35.3 H VBG pH VBG pCO2 VBG pO2 VBG HCO3 VBG O2 Saturation VBG Base Excess Anion Gap 10 L Estim Creat Clear Calc 100.5 Estimated GFR > 60 Random Glucose 95 Lactic Acid 1.0 Calcium 9.0 D Magnesium 2.0 Total Bilirubin 0.3 AST 39 H ALT 13 Alkaline Phosphatase 53 Total Creatine Kinase 37 L Troponin I High Sens 39.4 H D C-Reactive Protein 1.27 H Total Protein 7.0 Albumin 3.6 C. difficile Tox B Gene COVID-19 ([facility]) Negative [facility] [employer] [facility] See Note Influenza Type A ([facility]IS) Negative Influenza Type B (LUIS) Negative Influenza A & B Note See Note 08/25/25 08/25/25 08/25/25 11:49 13:58 14:48 MCV MCH MCHC RDW Plt Count MPV Immature Gran % (Auto) Neut % (Auto) Lymph % (Auto) Webb % (Auto) Eos % (Auto) Baso % (Auto) Lymph # (Auto) Webb # (Auto) Eos # (Auto) Baso # (Auto) Abs Immat Gran (auto) Absolute Neuts (auto) Absolute Nucleated RBC Nucleated RBC % (auto) ESR Hold Purple Top PT INR APTT VBG pH 7.47 H VBG pCO2 35 VBG pO2 62 VBG HCO3 26 VBG O2 Saturation 91.0 VBG Base Excess 3.0 Anion Gap Estim Creat Clear Calc Estimated GFR Random Glucose Lactic Acid Calcium Magnesium Total Bilirubin AST ALT Alkaline Phosphatase Total Creatine Kinase Troponin I High Sens 41.0 H C-Reactive Protein Total Protein Albumin C. difficile Tox B Gene NEGATIVE COVID-19 ([facility]) COVID-[employer] Com Influenza Type A (LUIS) Influenza Type B (LUIS) Influenza A & B Note 08/26/25 05:47 MCV MCH MCHC RDW Plt Count MPV Immature Gran % (Auto) Neut % (Auto) Lymph % (Auto) Webb % (Auto) Eos % (Auto) Baso % (Auto) Lymph # (Auto) Webb # (Auto) Eos # (Auto) Baso # (Auto) Abs Immat Gran (auto) Absolute Neuts (auto) Absolute Nucleated RBC Nucleated RBC % (auto) ESR Hold Purple Top SEE NOTE PT INR APTT VBG pH VBG pCO2 VBG pO2 VBG HCO3 VBG O2 Saturation VBG Base Excess Anion Gap 12 Estim Creat Clear Calc 105.1 Estimated GFR > 60 Random Glucose 88 Lactic Acid Calcium 8.9 Magnesium Total Bilirubin 0.4 AST 34 ALT 12 Alkaline Phosphatase 52 Total Creatine Kinase Troponin I High Sens C-Reactive Protein Total Protein 6.6 Albumin 3.4 L C. difficile Tox B Gene COVID-19 ([facility]) COVID-19 Clin Com Influenza Type A (LUIS) Influenza Type B (LUIS) Influenza A & B Note Assessment and Plan (1) Acute colitis: Status: Acute Plan 70-year-old male with a complex medical history presenting with acute on chronic colitis, manifesting as nausea, diarrhea, and abdominal pain. Recent hospitalization for similar symptoms with negative infectious workup and partial improvement on imaging. Current labs notable for elevated CRP and troponin. Treated empirically with ceftriaxone and metronidazole due to prior thrombocytopenia with Zosyn. Acute colitis, previously treated with zosyn resulting in thrombocytopenia continue flagyl and ceftriaxone reconsult gi IVF, antiemtics, pain medication s recent acute thrombocytopenia attributed to zosyn plat now normal, monitor possible splenic flexure colon mass and possible pancreatic mass previously MRCP could not be done d/t lack info on AICD reconsult gi, he is saying he will go for procedure now SOb, no hypoxia, no PNA O2 PRN opiate dependence methadone, morphine and oxycodone for pain htn resume home meds per med rec pafib lopressor, hold xarelto for possible gi procedure Depression, si thought sitter dvt prophylaxis - for now mechanical full code Diet clear liquid diet Quality Stroke Does the patient have a stroke diagnosis?: No VTE Prior VTE?: No VTE Risk Level:: Medical - moderate - high VTE Device Contraindication: N/A - Device Ordered VTE Drug Contraindication: Treatment Not Indicated
--- NOTE | 2025-08-26 09:22 | PM.GICN ---
History of Present Illness Data of Consult Service Date: 08/26/25 Requesting physician: Gigi Vazquez Primary Care Provider: Travis Mcarthur MD [facility] Reason for consult: Colitis, questionable colonic mass 70 YM with depression, paroxysmal atrial fibrillation on rivaroxaban, intravenous drug use, AICD/DDD pacemaker, hypertension, and prior C. difficile infection seen at [facility] on 08/25/25 with nausea (without vomiting), and approximately 7 episodes of loose, brown, watery diarrhea since midnight. Pt reported constant, cramping lower abdominal pain rated 7/10, which worsens with movement. He has had minimal oral intake of food and fluids over the past 24 hours. Pt was recently hospitalized from 08/09/2025 to 08/19/2025 for acute colitis, with a differential diagnosis of splenic flexure colonic mass versus pancreatitis. Pt was seen by Dr Gabriel and advised evaluation with an upper endoscopy and colonoscopy which he refused. C. difficile and GI panel were negative at that time. He was treated with piperacillin/tazobactam, which resulted in thrombocytopenia. Pt complains of lower abdominal pain and multiple episodes of diarrhea (6 episodes since midnight) He also complains of nausea and a HICKS. He describes possible colonoscopy at [facility] over 10 years ago that was negative as far as he knows. Pt denied family history of inflammatory bowel disease or GI malignancy. 08/25/[address] SCAN SHOWED: 1. Improvement in previously seen diffuse colonic wall thickening which is now most prominent involving the splenic flexure and rectosigmoid colon. Findings are compatible with colitis, which may be infectious, inflammatory, or ischemic in nature. 2. Persistent moderate to large amount of stool throughout the colon. 3. New small bilateral pleural effusions. 4. Cholelithiasis. [facility] Past Medical History Medical History MDD (major depressive disorder), recurrent episode, moderate Paroxysmal atrial fibrillation History of intravenous drug abuse Presence of combination internal cardiac defibrillator (ICD) and pacemaker Ventricular arrhythmia Opioid dependence Lumbar disc herniation Thoracic disc herniation Cervical disc herniation Opioid abuse Pacemaker HTN (hypertension) Family History Family History Mother HTN (hypertension) CHF (congestive heart failure) Surgical History Surgical History History of spinal fusion History of hip replacement Social History Social History Household Members: None Household Members Other:: lives with other roommates Housing: Assisted Living Facility Housing Other:: bharat Do you presently have visiting nurse or other home services: No Alcohol intake: former Comment: 1:1 sitter Patient Tobacco Use Status: Never used Tobacco e-Cigarette/Vaping Use: Never Used Second Hand Smoke Exposure: No Substance Use Type: Marijuana Advance Directives Date on File: 04/29/24 service: No Current occupational status: retired and disabled Sexual orientation: Straight/Heterosexual Meds Allergies Allergy/AdvReac Type Severity Reaction Status Date / Time ergotamine (ERGOTAMINE) AdvReac Severe NAUSEA Verified 08/25/25 10:14 Active Medications: Current Medications Acetaminophen (Acetaminophen 325 Mg Tablet) 650 mg PO Q6H PRN PRN Reason: Pain, Mild 1-3,fever,headache Calcium Carbonate (Calcium Carbonate 750 Mg Tab.Chew) 750 mg PO Q4H PRN PRN Reason: Heartburn Clonidine HCl (Clonidine Hcl 0.1 Mg Tablet) 0.1 mg PO TID [place]; Protocol Last Admin: 08/25/25 21:53 Dose: 0.1 mg Docusate Sodium (Docusate Sodium 100 Mg Capsule) 100 mg PO BID PRN PRN Reason: Constipation Duloxetine HCl (Duloxetine Hcl 30 Mg Capsule.Dr) 30 mg PO BID [place] Hydroxyzine HCl (Hydroxyzine Hcl 25 Mg Tablet) 25 mg PO QID [place] Lactated Ringer's (Lr) 1,000 mls @ 125 mls/hr IVCONT .Q8H [place] Last Admin: 08/26/25 08:09 Dose: 125 mls/hr Metronidazole (Flagyl) 500 mg in 100 mls @ 100 mls/hr IV Q8H [place] Last Infusion: 08/26/25 06:59 Dose: Infused Ceftriaxone Sodium 1 gm/ (Sodium Chloride) 50 mls @ 100 mls/hr IV DAILY [facility] Last Infusion: 08/26/25 08:39 Dose: Infused Lisinopril (Lisinopril 5 Mg Tablet) 5 mg PO DAILY [place]; Protocol Magnesium Hydroxide (Milk Of Magnesia 30 Ml Oral.Susp) 30 ml PO DAILY PRN PRN Reason: Constipation Magnesium Oxide (Magnesium Oxide 400 Mg Tablet) 200 mg PO BID [facility] Melatonin (Melatonin 3 Mg Tablet) 6 mg PO BEDTIME PRN PRN Reason: Insomnia Last Admin: 08/25/25 23:57 Dose: 6 mg Metoprolol Tartrate (Metoprolol Tartrate 25 Mg Tablet) 75 mg PO BID [facility]; Protocol Last Admin: 08/25/25 21:53 Dose: 75 mg Morphine Sulfate (Morphine Sulfate 4 Mg/Ml Cartridge) 3 mg IVPUSH Q4H PRN; Protocol PRN Reason: Pain, Moderate(Pain Scale 4-6) Nifedipine (Nifedipine Er 30 Mg Tab.Er.24) 30 mg PO DAILY [facility]; Protocol Ondansetron HCl (Ondansetron Hcl 4 Mg/2 Ml Vial) 4 mg IVPUSH Q8H PRN PRN Reason: Nausea and Vomiting Oxycodone HCl (Oxycodone Hcl Immed Release 5 Mg Tablet) 10 mg PO Q6H PRN PRN Reason: Pain, Moderate(Pain Scale 4-6) Last Admin: 08/26/25 05:58 Dose: 10 mg Potassium Chloride (Potassium Chloride Er 10 Meq Tablet.Er) 10 meq PO DAILY [facility] Senna (Sennosides 8.6 Mg Tablet) 17.2 mg PO BID PRN PRN Reason: Constipation Sodium Chloride (0.9 % Sodium Chloride Flush 3 Ml Syringe) 3 ml IVFLUSH QSHIFT [facility] Last Admin: 08/26/25 07:33 Dose: Not Given Trazodone HCl (Trazodone Hcl 50 Mg Tablet) 50 mg PO BEDTIME [facility] Home Medications ?Medication ?Instructions ?Recorded ?Confirmed ?Last Taken ?Type hydroxyzine HCl 25 mg tablet 25 mg PO QID anxiety/insomnia 12/12/23 08/25/25 08/25/25 History rivaroxaban 20 mg tablet (Xarelto) 20 mg PO DAILY@1700 07/04/24 08/25/25 08/24/25 History duloxetine 30 mg capsule,delayed 30 mg PO BID 03/23/25 08/25/25 08/25/25 History release clonidine HCl 0.1 mg tablet 0.1 mg PO TID 08/09/25 08/25/25 08/25/25 History docusate sodium 100 mg capsule 100 mg PO BID PRN Constipation 08/09/25 08/25/25 Unknown History (Colace) methadone 10 mg tablet 5 mg PO Q6H PRN Pain 08/09/25 08/25/25 08/25/25 History oxycodone 15 mg tablet 15 mg PO Q6H PRN Pain 08/09/25 08/25/25 Unknown History sennosides 8.6 mg tablet (senna) 17.2 mg PO BID PRN Constipation 08/09/25 08/25/25 Unknown History magnesium oxide 400 mg (241.3 mg 200 mg PO BID 08/25/25 08/25/25 08/25/25 History magnesium) tablet metoprolol tartrate 50 mg tablet 75 mg PO BID 08/25/25 08/25/25 08/25/25 History Physical Exam Vital Signs: Vital Signs: Last Vital Signs Temp 97.8 F 08/26/25 07:03 Pulse 69 08/26/25 07:03 Resp 16 08/26/25 07:03 BP 152/90 H 08/26/25 07:03 Pulse Ox 91 L 08/26/25 07:03 O2 Del Method Room Air 08/26/25 07:03 BMI result Body Mass Index 22.3 Const: Other: General: AO X 3, no acute distress Resp: CTA bilateral CVS: S1,S2,RRR GI: Abdomen:?Mild to moderate tenderness in the left upper quadrant; moderate tenderness in the left lower and right lower quadrants. Skin: No rash Neuro: motor grossly intact Psych: appropriate affect General: healthy appearing and no acute distress Nutritional Appearance: average body habitus Orientation/consciousness: patient oriented x3 Limitations: no limitations HEENT: Head: Yes normal to inspection Ears: hearing grossly normal bilaterally Mouth: Normal oral and palatal mucosa present Eyes: Sclerae: sclerae normal Pupils: Equal, round and reactive pupils present Neck: Neck: Yes normal visual inspection Chest: Chest palpation & inspection: normal inspection of the chest Resp: Effort & Inspection: normal respiratory effort Auscultation: clear to auscultation bilaterally Cardio: Palpation: normal PMI Rate: regular rate Rhythm: regular rhythm Heart sounds: S1 normal heart sound present, S2 normal heart sound present and no murmurs GI: Palpation (GI): Soft to palpation, Tenderness to palpation present (GI) (Moderate lower abdominal and LUQ tenderness) and No hepatosplenomegaly present Auscultation: normal bowel sounds Rectal Exam - Male: Yes deferred Skin: General skin exam: no rashes or lesions noted Neuro: General: patient oriented x3, gait normal and moves all extremities Cranial nerves: Yes Equal, round and reactive pupils present Psych: Appearance: grossly normal Mental Status: mental status grossly normal Results Labs 08/25/25 10:36 08/26/25 05:47 Labs: Short CBC 08/25/25 Range/Units 10:36 WBC 6.2 (4.8-10.8) X10*3/uL Hgb 11.3 L (14.0-18.0) g/dl Hct 34.4 L (42.0-52.0) % Plt Count 334 (160-400) X10*3/uL BMP 08/25/25 08/26/25 10:36 05:47 Sodium 139 139 Potassium 4.0 D 5.3 H D Chloride 108 108 Carbon Dioxide 25 24 BUN 10 9 Creatinine 0.69 0.66 Calcium 9.0 D 8.9 Cardiac Enzymes 08/25/25 Range/Units 10:36 Total Creatine Kinase 37 L (38-174) U/L Liver Function 08/25/25 08/26/25 Range/Units 10:36 05:47 Total Bilirubin 0.3 0.4 (0.0-1.0) mg/dL AST 39 H 34 (5-37) U/L ALT 13 12 (0-40) U/L Alkaline Phosphatase 53 52 (39-117) U/L Albumin 3.6 3.4 L (3.5-5.0) g/dL Assessment and Plan (1) Diarrhea: Status: Acute (2) Colitis: Status: Acute (3) Abdominal pain: Status: Acute Plan 70 YM with depression, paroxysmal atrial fibrillation on rivaroxaban, intravenous drug use, AICD/DDD pacemaker, hypertension, and prior C. difficile infection admitted to [facility] on 08/25/25 with nausea and diarrhea Pt was recently hospitalized from 08/09/2025 to 08/19/2025 for acute colitis, with a differential diagnosis of splenic flexure colonic mass versus pancreatitis. Pt was seen by Dr Gabriel and advised evaluation with an upper endoscopy and colonoscopy which he refused and is now willing to have the procedures. Abd CT scan showed Improvement in previously seen diffuse colonic wall thickening which is now most prominent involving the splenic flexure and rectosigmoid colon. Pt's symptoms are likely due to ischemic or infectious colitis or IBD. CEA was elevated at 20 during his recent admission raising concern for possible malignancy. RECOMMENDATIONS: 1. Agree with IV PPI, pain medications and antiemetics 2. Clear liquid diet and Golytely prep on 08/27/25 for EGD and colon on 08/28/25 Pt placed on the OR add on list to be scheduled on 08/28/[address] Gabriel Procedures Date of Service Date of Service: 08/26/25
--- NOTE | 2025-08-26 15:36 | MHC.CM.PN ---
IMM 08/26/25, EMR REVIEWED, CM MET W/PT WHO REPORTS HE LIVES AT [facility], USES A CANE INDOORS AND WALKER FOR OUTINGS, PT DENIES HAVING ANY ADDITIONAL SERVICES AT [facility], GOAL IS TO RETURN HOWEVER LSO REPORTS HE WOULD GO TO [facility] IF NEEDED. PCP/HCP ON FILE VERIFIED. DP: RETURN TO [facility], PT WILL NEED ASSISTANCE W/TRANSPORT
[2025-08-26 16:00] VITALS: BP 161/82; PULSE 75; RESP 20; TEMP 37.2; O2SAT 91
[2025-08-26 20:00] VITALS: BP 154/81; PULSE 74; RESP 19; TEMP 37.4; O2SAT 92
[2025-08-27 03:18] VITALS: BP 142/82; PULSE 71; RESP 17; TEMP 36.3; O2SAT 93
[2025-08-27] MEDS: oxyCODONE HCl Immed Release 5 MG TABLET 10 MG PO ×3 (04:44→16:54)
[2025-08-27] MEDS: metroNIDAZOLE/NS 500 MG/100 ML PIGGYBACK 100 MG IV ×3 (05:12→21:52)
[2025-08-27 07:07] VITALS: BP 155/80; PULSE 72; RESP 16; TEMP 36.6; O2SAT 93
[2025-08-27] MEDS: NIFEdipine ER 30 MG TAB.ER.24 PO (09:01)
[2025-08-27] MEDS: Potassium Chloride ER 10 MEQ TABLET.ER PO (09:01)
[2025-08-27] MEDS: Lactated Ringers 1,000 ML 125 ML IVCONT ×2 (09:10→18:25)
[2025-08-27] MEDS: PEG 3350/Na Sulf,Bicarb,Cl/KCL 4,000 ML SOLN.RECON 4000 ML PO (15:00)
[2025-08-27 16:00] VITALS: BP 134/79; PULSE 71; RESP 18; TEMP 37.2; O2SAT 90
[2025-08-27 19:43] VITALS: BP 127/70; PULSE 70; RESP 18; TEMP 37; O2SAT 93
[2025-08-27 22:39] VITALS: RESP 20
[2025-08-28] MEDS: oxyCODONE HCl Immed Release 5 MG TABLET 10 MG PO ×4 (00:21→17:55)
[2025-08-28 00:29] VITALS: BP 154/81; PULSE 75
--- NOTE | 2025-08-28 00:49 | PC.NURSE ---
2144, pt refused to take 2100 medications due to pain and nausea, pharmacy reordered medications for 0000 in order for pt to take with zofran and oxycodone dose to address pain and nausea. pt took medications at 0000 with no complications
[2025-08-28] MEDS: Lactated Ringers 1,000 ML 125 ML IVCONT ×3 (02:28→17:56)
[2025-08-28 04:33] VITALS: BP 134/78; PULSE 71; RESP 18; TEMP 36.8; O2SAT 93
[2025-08-28] MEDS: metroNIDAZOLE/NS 500 MG/100 ML PIGGYBACK 100 MG IV ×3 (05:34→21:02)
[2025-08-28 07:31] VITALS: BP 137/72; PULSE 69; RESP 14; TEMP 36.2; O2SAT 94
--- NOTE | 2025-08-28 08:01 | HO.ANESPROP2 ---
HPI - Anesthesia Eval Consult details Narrative: 70 yr old male for colonoscopy Inpt cardiology consult 08/18/25: [age] gentleman with AFib with RVR in the setting of colitis and question colon mass. Rate controlled currently. Agree with rate control strategy currently. Currently off rivaroxaban. As GI workup is done probably should be on anticoagulation joint terminal attack controller. We will look into the ICD details. *Spoke to pt, we denies outpt cardiology follow up. IVDU: on methadone Combo ICD/pacemaker: per pt does not follow with cardiology, ICD placed several years ago 2/2 ventricular arrhythmia; ?last interrogated in 2022 On 2 liters nasal cannula, sats are low 90s Afib: xarelto on hold PMFSH Active Problems Active Problems: All Active Problems Diarrhea (Acute) Abdominal pain (Acute) Acute colitis (Acute) Hypokalemia (Acute) Thrombocytopenia (Acute) Mass of colon (Acute) Hyperchloremic metabolic acidosis (Acute) Acute lactic acidosis (Acute) Colitis (Acute) SIRS (systemic inflammatory response syndrome) (Acute) Occult blood positive stool (Acute) Abdominal pain (Acute) Diarrhea (Acute) Choledocholithiasis (Acute) Acute colitis (Acute) Acute proctitis (Acute) Opioid use disorder (Acute) PTSD (post-traumatic stress disorder) (Acute) MDD (major depressive disorder), recurrent episode (Acute) C. difficile colitis (Acute) ICD (implantable cardioverter-defibrillator) in place (Acute) Atrial fibrillation with RVR (Acute) Passive suicidal ideations (Acute) Personality disorder in adult (Acute) Chronic pain (Acute) Depressive disorder (Acute) Hypertension (Acute) Past Medical History Medical History MDD (major depressive disorder), recurrent episode, moderate Paroxysmal atrial fibrillation History of intravenous drug abuse Presence of combination internal cardiac defibrillator (ICD) and pacemaker Ventricular arrhythmia Opioid dependence Lumbar disc herniation Thoracic disc herniation Cervical disc herniation Opioid abuse Pacemaker HTN (hypertension) Family History Family History Mother HTN (hypertension) CHF (congestive heart failure) Surgical History Surgical History History of spinal fusion History of hip replacement Social History Social History Household Members: None Household Members Other:: lives with other roommates Housing: Assisted Living Facility Housing Other:: bharat Do you presently have visiting nurse or other home services: No Alcohol intake: former Comment: sitter for safety Patient Tobacco Use Status: Never used Tobacco e-Cigarette/Vaping Use: Never Used Second Hand Smoke Exposure: No Substance Use Type: Marijuana Advance Directives Date on File: 04/29/24 service: No Current occupational status: retired and disabled Sexual orientation: Straight/Heterosexual Meds Allergies Allergy/AdvReac Type Severity Reaction Status Date / Time ergotamine (ERGOTAMINE) AdvReac Severe NAUSEA Verified 08/25/25 10:14 Active Medications: Current Medications Acetaminophen (Acetaminophen 325 Mg Tablet) 650 mg PO Q6H PRN PRN Reason: Pain, Mild 1-3,fever,headache Last Admin: 08/28/25 00:23 Dose: 650 mg Calcium Carbonate (Calcium Carbonate 750 Mg Tab.Chew) 750 mg PO Q4H PRN PRN Reason: Heartburn Clonidine HCl (Clonidine Hcl 0.1 Mg Tablet) 0.1 mg PO TID [facility]; Protocol Last Admin: 08/28/25 00:32 Dose: 0.1 mg Docusate Sodium (Docusate Sodium 100 Mg Capsule) 100 mg PO BID PRN PRN Reason: Constipation Duloxetine HCl (Duloxetine Hcl 30 Mg Capsule.Dr) 30 mg PO BID [facility] Last Admin: 08/28/25 00:28 Dose: 30 mg Hydroxyzine HCl (Hydroxyzine Hcl 25 Mg Tablet) 25 mg PO QID [facility] Last Admin: 08/28/25 00:29 Dose: 25 mg Metronidazole (Flagyl) 500 mg in 100 mls @ 100 mls/hr IV Q8H [facility] Last Infusion: 08/28/25 07:10 Dose: Infused Ceftriaxone Sodium 1 gm/ (Sodium Chloride) 50 mls @ 100 mls/hr IV DAILY [facility] Last Infusion: 08/27/25 09:38 Dose: Infused Lactated Ringer's (Lr) 1,000 mls @ 125 mls/hr IVCONT .Q8H [facility] Last Admin: 08/28/25 02:28 Dose: 125 mls/hr Lisinopril (Lisinopril 5 Mg Tablet) 5 mg PO DAILY [facility]; Protocol Last Admin: 08/27/25 09:00 Dose: 5 mg Magnesium Hydroxide (Milk Of Magnesia 30 Ml Oral.Susp) 30 ml PO DAILY PRN PRN Reason: Constipation Magnesium Oxide (Magnesium Oxide 400 Mg Tablet) 200 mg PO BID [facility] Melatonin (Melatonin 3 Mg Tablet) 6 mg PO BEDTIME PRN PRN Reason: Insomnia Last Admin: 08/28/25 00:32 Dose: 6 mg Metoprolol Tartrate (Metoprolol Tartrate 25 Mg Tablet) 75 mg PO BID [facility]; Protocol Last Admin: 08/28/25 00:29 Dose: 75 mg Morphine Sulfate (Morphine Sulfate 4 Mg/Ml Cartridge) 3 mg IVPUSH Q4H PRN; Protocol PRN Reason: Pain, Moderate(Pain Scale 4-6) Last Admin: 08/27/25 22:39 Dose: 3 mg Nifedipine (Nifedipine Er 30 Mg Tab.Er.24) 30 mg PO DAILY [facility]; Protocol Last Admin: 08/27/25 09:01 Dose: 30 mg Ondansetron HCl (Ondansetron Hcl 4 Mg/2 Ml Vial) 4 mg IVPUSH Q6H PRN PRN Reason: Nausea and Vomiting Last Admin: 08/28/25 00:21 Dose: 4 mg Oxycodone HCl (Oxycodone Hcl Immed Release 5 Mg Tablet) 10 mg PO Q6H PRN PRN Reason: Pain, Moderate(Pain Scale 4-6) Last Admin: 08/28/25 05:33 Dose: 10 mg Potassium Chloride (Potassium Chloride Er 10 Meq Tablet.Er) 10 meq PO DAILY [facility] Last Admin: 08/27/25 09:01 Dose: 10 meq Senna (Sennosides 8.6 Mg Tablet) 17.2 mg PO BID PRN PRN Reason: Constipation Sodium Chloride (0.9 % Sodium Chloride Flush 3 Ml Syringe) 3 ml IVFLUSH QSHIFT [facility] Last Admin: 08/28/25 00:33 Dose: Not Given Trazodone HCl (Trazodone Hcl 50 Mg Tablet) 50 mg PO BEDTIME [facility] Last Admin: 08/28/25 00:26 Dose: 50 mg Home Medications ?Medication ?Instructions ?Recorded ?Confirmed ?Last Taken ?Type hydroxyzine HCl 25 mg tablet 25 mg PO QID anxiety/insomnia 12/12/23 08/25/25 08/25/25 History rivaroxaban 20 mg tablet (Xarelto) 20 mg PO DAILY@1700 07/04/24 08/25/25 08/24/25 History duloxetine 30 mg capsule,delayed 30 mg PO BID 03/23/25 08/25/25 08/25/25 History release clonidine HCl 0.1 mg tablet 0.1 mg PO TID 08/09/25 08/25/25 08/25/25 History docusate sodium 100 mg capsule 100 mg PO BID PRN Constipation 08/09/25 08/25/25 Unknown History (Colace) methadone 10 mg tablet 5 mg PO Q6H PRN Pain 08/09/25 08/25/25 08/25/25 History oxycodone 15 mg tablet 15 mg PO Q6H PRN Pain 08/09/25 08/25/25 Unknown History sennosides 8.6 mg tablet (senna) 17.2 mg PO BID PRN Constipation 08/09/25 08/25/25 Unknown History magnesium oxide 400 mg (241.3 mg 200 mg PO BID 08/25/25 08/25/25 08/25/25 History magnesium) tablet metoprolol tartrate 50 mg tablet 75 mg PO BID 08/25/25 08/25/25 08/25/25 History Exam Height,Weight and Vital Signs: Height 5 ft 11 in Weight 72.4 kg Last Vital Signs Temp 97.1 F 08/28/25 07:31 Pulse 69 08/28/25 07:31 Resp 14 08/28/25 07:31 BP 137/72 08/28/25 07:31 Pulse Ox 94 08/28/25 07:31 O2 Del Method Room Air 08/28/25 07:31 Pertinent Lab Results Pertinent Lab Results: Laboratory Tests 08/25/25 08/25/25 08/25/25 10:36 11:40 11:47 WBC 6.2 RBC 3.88 L Hgb 11.3 L Hct 34.4 L MCV 88.7 MCH 29.1 MCHC 32.8 RDW 13.8 Plt Count 334 MPV 9.9 Immature Gran % (Auto) 0.3 Neut % (Auto) 73.9 H Lymph % (Auto) 17.6 L [place] % (Auto) 7.0 Eos % (Auto) 0.7 Baso % (Auto) 0.5 Lymph # (Auto) 1.1 L [place] # (Auto) 0.4 Eos # (Auto) 0.0 Baso # (Auto) 0.0 Abs Immat Gran (auto) 0.02 Absolute Neuts (auto) 4.6 Absolute Nucleated RBC 0.000 Nucleated RBC % (auto) 0.0 ESR 42 H Hold Purple Top PT 16.3 H INR 1.4 H APTT 35.3 H VBG pH VBG pCO2 VBG pO2 VBG HCO3 VBG O2 Saturation VBG Base Excess Sodium 139 Potassium 4.0 D Chloride 108 Carbon Dioxide 25 Anion Gap 10 L BUN 10 Creatinine 0.69 Estim Creat Clear Calc 100.5 Estimated GFR > 60 Random Glucose 95 Lactic Acid 1.0 Calcium 9.0 D Magnesium 2.0 Total Bilirubin 0.3 AST 39 H ALT 13 Alkaline Phosphatase 53 Total Creatine Kinase 37 L Troponin I High Sens 39.4 H D C-Reactive Protein 1.27 H Total Protein 7.0 Albumin 3.6 C. difficile Tox B Gene COVID-19 ([facility]) Negative [place] [facility] [place] See Note Influenza Type A ([facility]) Negative Influenza Type B ([facility]) Negative Influenza A & B Note See Note 08/25/25 08/25/25 08/25/25 11:49 13:58 14:48 WBC RBC Hgb Hct MCV MCH MCHC RDW Plt Count MPV Immature Gran % (Auto) Neut % (Auto) Lymph % (Auto) [place] % (Auto) Eos % (Auto) Baso % (Auto) Lymph # (Auto) [place] # (Auto) Eos # (Auto) Baso # (Auto) Abs Immat Gran (auto) Absolute Neuts (auto) Absolute Nucleated RBC Nucleated RBC % (auto) ESR Hold Purple Top PT INR APTT VBG pH 7.47 H VBG pCO2 35 VBG pO2 62 VBG HCO3 26 VBG O2 Saturation 91.0 VBG Base Excess 3.0 Sodium Potassium Chloride Carbon Dioxide Anion Gap BUN Creatinine Estim Creat Clear Calc Estimated GFR Random Glucose Lactic Acid Calcium Magnesium Total Bilirubin AST ALT Alkaline Phosphatase Total Creatine Kinase Troponin I High Sens 41.0 H C-Reactive Protein Total Protein Albumin C. difficile Tox B Gene NEGATIVE COVID-19 ([facility]) COVID-Phloronol Com Influenza Type A ([facility]) Influenza Type B ([facility]) Influenza A & B Note 08/26/25 05:47 WBC RBC Hgb Hct MCV MCH MCHC RDW Plt Count MPV Immature Gran % (Auto) Neut % (Auto) Lymph % (Auto) [place] % (Auto) Eos % (Auto) Baso % (Auto) Lymph # (Auto) [place] # (Auto) Eos # (Auto) Baso # (Auto) Abs Immat Gran (auto) Absolute Neuts (auto) Absolute Nucleated RBC Nucleated RBC % (auto) ESR Hold Purple Top SEE NOTE PT INR APTT VBG pH VBG pCO2 VBG pO2 VBG HCO3 VBG O2 Saturation VBG Base Excess Sodium 139 Potassium 5.3 H D Chloride 108 Carbon Dioxide 24 Anion Gap 12 BUN 9 Creatinine 0.66 Estim Creat Clear Calc 105.1 Estimated GFR > 60 Random Glucose 88 Lactic Acid Calcium 8.9 Magnesium Total Bilirubin 0.4 AST 34 ALT 12 Alkaline Phosphatase 52 Total Creatine Kinase Troponin I High Sens C-Reactive Protein Total Protein 6.6 Albumin 3.4 L C. difficile Tox B Gene COVID-19 ([facility]) COVID-19 Clin Com Influenza Type A ([facility]) Influenza Type B ([facility]) Influenza A & B Note
[2025-08-28 08:18] LABS: Hematocrit 35.7 % (42.0-52.0); Hemoglobin 11.5 g/dl (14.0-18.0); Mean Corpuscular HGB Conc 32.2 g/dl (31.0-36.0); Mean Corpuscular Hemoglobin 28.9 pg (27.0-33.0); Mean Corpuscular Volume 89.7 fL (80.0-98.0); NRBC Abs Auto 0.000 X10*3/uL (0.0-0.012); NRBC Pct Auto 0.0 /100WBC (0.0-0.2); Platelet Count 263 X10*3/uL (160-400); Red Blood Count 3.98 X10*6/uL (4.60-5.80); White Blood Count 7.3 X10*3/uL (4.8-10.8)
[2025-08-28 08:26] LABS: Potassium 4.7 mmol/L (3.3-5.1)
[2025-08-28 08:34] LABS: INTERNATIONAL NORM RATIO 1.2 (0.9-1.1); Prothrombin Time 13.8 SEC (10.9-12.4)
[2025-08-28] MEDS: 0.9 % Sodium Chloride Flush 3 ML SYRINGE IVFLUSH ×2 (08:34→19:41)
[2025-08-28 08:40] LABS: Blood Urea Nitrogen 7 mg/dL (9-16); Calcium 9.0 mg/dL (8.4-10.2); Creatinine Clr Calc Pharmacy 103.5; Estimated Glomerular Filt Rate > 60
[2025-08-28 08:42] VITALS: BP 155/79; PULSE 77; RESP 14; TEMP 36.4; O2SAT 93
[2025-08-28] MEDS: Potassium Chloride ER 10 MEQ TABLET.ER PO (08:42)
[2025-08-28] MEDS: NIFEdipine ER 30 MG TAB.ER.24 PO (08:43)
[2025-08-28 08:46] LABS: Anion Gap 11 (12-20); Carbon Dioxide 28 mmol/L (22-29); Chloride 107 mmol/L (96-108); Potassium 4.6 mmol/L (3.3-5.1); Sodium 141 mmol/L (135-145)
--- NOTE | 2025-08-28 09:57 | HO.PM.IMPN ---
Subjective Subjective Date of Service: 08/28/25 Interval History: f/u abdominal pain, colitis Pain seems better controll today and is now agreable to have colnosopy done Physical Exam Vital Signs: Vital Signs: Last Vital Signs Temp 97.5 F 08/28/25 08:42 Pulse 77 08/28/25 08:42 Resp 14 08/28/25 08:42 BP 155/79 H 08/28/25 08:42 Pulse Ox 93 08/28/25 08:42 O2 Del Method Room Air 08/28/25 08:42 BMI result Body Mass Index 22.3 Const: Other: General: AO X 3, no acute distress Resp: CTA bilateral CVS: S1,S2,RRR GI: Abdomen:?Mild to moderate tenderness in the left upper quadrant; moderate tenderness in the left lower and right lower quadrants. Skin: No rash Neuro: motor grossly intact Psych: appropriate affect Objective Data Active Medications Acetaminophen (Acetaminophen 325 Mg Tablet) 650 mg PO Q6H PRN PRN Reason: Pain, Mild 1-3,fever,headache Last Admin: 08/28/25 00:23 Dose: 650 mg Documented By: DEISY Calcium Carbonate (Calcium Carbonate 750 Mg Tab.Chew) 750 mg PO Q4H PRN PRN Reason: Heartburn Clonidine HCl (Clonidine Hcl 0.1 Mg Tablet) 0.1 mg PO TID [facility]; Protocol Last Admin: 08/28/25 08:43 Dose: 0.1 mg Documented By: SEAN Docusate Sodium (Docusate Sodium 100 Mg Capsule) 100 mg PO BID PRN PRN Reason: Constipation Duloxetine HCl (Duloxetine Hcl 30 Mg Capsule.) 30 mg PO BID [facility] Last Admin: 08/28/25 08:42 Dose: 30 mg Documented By: SEAN Hydroxyzine HCl (Hydroxyzine Hcl 25 Mg Tablet) 25 mg PO QID [facility] Last Admin: 08/28/25 08:53 Dose: 25 mg Documented By: SEAN Metronidazole (Flagyl) 500 mg in 100 mls @ 100 mls/hr IV Q8H [facility] Last Infusion: 08/28/25 07:10 Dose: Infused Documented By: DEISY Ceftriaxone Sodium 1 gm/ (Sodium Chloride) 50 mls @ 100 mls/hr IV DAILY [facility] Last Infusion: 08/28/25 09:31 Dose: Infused Documented By: SEAN Lactated Ringer's (Lr) 1,000 mls @ 125 mls/hr IVCONT .Q8H [facility] Last Admin: 08/28/25 09:41 Dose: 125 mls/hr Documented By: SEAN Lisinopril (Lisinopril 5 Mg Tablet) 5 mg PO DAILY [facility]; Protocol Last Admin: 08/28/25 08:43 Dose: 5 mg Documented By: SEAN Magnesium Hydroxide (Milk Of Magnesia 30 Ml Oral.Susp) 30 ml PO DAILY PRN PRN Reason: Constipation Magnesium Oxide (Magnesium Oxide 400 Mg Tablet) 200 mg PO BID [facility] Last Admin: 08/28/25 08:42 Dose: 200 mg Documented By: SEAN Melatonin (Melatonin 3 Mg Tablet) 6 mg PO BEDTIME PRN PRN Reason: Insomnia Last Admin: 08/28/25 00:32 Dose: 6 mg Documented By: DEISY Metoprolol Tartrate (Metoprolol Tartrate 25 Mg Tablet) 75 mg PO BID [facility]; Protocol Last Admin: 08/28/25 08:44 Dose: 75 mg Documented By: SEAN Morphine Sulfate (Morphine Sulfate 4 Mg/Ml Cartridge) 3 mg IVPUSH Q4H PRN; Protocol PRN Reason: Pain, Moderate(Pain Scale 4-6) Last Admin: 08/28/25 08:54 Dose: 3 mg Documented By: SEAN Naloxone HCl (Naloxone Hcl 0.4 Mg/Ml Vial) 0.04 mg IVPUSH Q5M PRN PRN Reason: Excessive sedation or RR < 8 Nifedipine (Nifedipine Er 30 Mg Tab.Er.24) 30 mg PO DAILY [facility]; Protocol Last Admin: 08/28/25 08:43 Dose: 30 mg Documented By: SEAN Ondansetron HCl (Ondansetron Hcl 4 Mg/2 Ml Vial) 4 mg IVPUSH Q6H PRN PRN Reason: Nausea and Vomiting Last Admin: 08/28/25 08:41 Dose: 4 mg Documented By: SEAN Oxycodone HCl (Oxycodone Hcl Immed Release 5 Mg Tablet) 10 mg PO Q6H PRN PRN Reason: Pain, Moderate(Pain Scale 4-6) Last Admin: 08/28/25 05:33 Dose: 10 mg Documented By: APOLLO Potassium Chloride (Potassium Chloride Er 10 Meq Tablet.Er) 10 meq PO DAILY [facility] Last Admin: 08/28/25 08:42 Dose: 10 meq Documented By: SEAN Senna (Sennosides 8.6 Mg Tablet) 17.2 mg PO BID PRN PRN Reason: Constipation Sodium Biphosphate/Sodium Phosphate (Sodium Phosphate,[place]-Dibasic 133 Ml Enema) 133 ml [place] ONCE PRN PRN Reason: Poor Colonoscopy Prep Results Sodium Biphosphate/Sodium Phosphate (Sodium Phosphate,[place]-Dibasic 133 Ml Enema) 133 ml [place] ONCE PRN PRN Reason: Poor Colonoscopy Prep Results Sodium Chloride (0.9 % Sodium Chloride Flush 3 Ml Syringe) 3 ml IVFLUSH QSHIFT [facility] Last Admin: 08/28/25 08:34 Dose: 3 ml Documented By: SEAN Trazodone HCl (Trazodone Hcl 50 Mg Tablet) 50 mg PO BEDTIME [facility] Last Admin: 08/28/25 00:26 Dose: 50 mg Documented By: DEISY Labs 08/28/25 08:12 08/28/25 08:12 Labs: Laboratory Results - last 24 hr 08/28/25 08:12 MCV 89.7 MCH 28.9 MCHC 32.2 RDW 13.7 Plt Count 263 MPV 9.4 Absolute Nucleated RBC 0.000 Nucleated RBC % (auto) 0.0 PT 13.8 H INR 1.2 H Anion Gap 11 L Estim Creat Clear Calc 103.5 Estimated GFR > 60 Random Glucose 109 Calcium 9.0 Assessment and Plan (1) Acute colitis: Status: Acute Plan 70-year-old male with a complex medical history presenting with acute on chronic colitis, manifesting as nausea, diarrhea, and abdominal pain. Recent hospitalization for similar symptoms with negative infectious workup and partial improvement on imaging. Current labs notable for elevated CRP and troponin. Treated empirically with ceftriaxone and metronidazole due to prior thrombocytopenia with Zosyn. Acute colitis, previously treated with zosyn resulting in thrombocytopenia continue flagyl and ceftriaxone IVF, antiemtics, pain medication s recent acute thrombocytopenia attributed to zosyn plat now normal, monitor possible splenic flexure colon mass and possible pancreatic mass previously MRCP could not be done d/t lack info on AICD Colonoscopy today 08/28/25 SOb, no hypoxia, no PNA O2 PRN, presently 93 on room air opiate dependence methadone, morphine and oxycodone for pain HTN continue lisinopril, metoprolol, nifedipine PAF lopressor, holding Xarelto for colnoscopy, resume after procedure Depression, si thought sitter dvt prophylaxis - for now mechanical full code Diet clear liquid diet Quality Stroke Does the patient have a stroke diagnosis?: No VTE Prior VTE?: No VTE Risk Level:: Medical - moderate - high VTE Device Contraindication: N/A - Device Ordered VTE Drug Contraindication: Treatment Not Indicated
--- NOTE | 2025-08-28 09:57 | PC.NURSE ---
patient refuses enema ,swearing and upset,message sent to [facility] to notify
--- NOTE | 2025-08-28 11:16 | PC.NURSE ---
notified by surgery that procedures are cancelled,Dr. Vazquez notified,need for psych consult adressed with Dr. Vazquez
--- NOTE | 2025-08-28 13:14 | HO.WOUND ---
Wound Consult: Initial 70 yr old male admitted [place] [facility] [place] - See progress notes and H&P for detailed history. Wound consult placed for groin/scrotum. Patient agreeable to assessment and photo documentation. Patient offering complaints about being NPO, reports depressive symptoms, has sitter at bedside, direct care RN Chhaya made aware. Patient reports rash to groin is itchy and he was previous applying a cream to the area. Left groin Etiology: MASD/IAD with fungal Wound Bed: moist red with satellite lesions - extending to scrotum/perineum - coccyx and buttocks intact and blanching Drainage / Odor: none Edges: diffuse Ly wound: ? No Induration, Fluctuance or Warmth noted Pain: itching Goals of Treatment: ? antifungal ordered - may apply triad paste on top of antifungal Left foot- dry adherent scab to base of left 5th toe, redness to lateral foot - bruise to dorsal foot. Recommendations: 1. Turn and Reposition every 2 hours and as needed for patient comfort. Use pillows or wedges to support off loading positions. 2. Off Load all bony prominences with use of pillows and heel boots if needed. Apply Preventative foams where needed. 3. Monitor for incontinence and moisture control, use barrier creams when needed for prevention and treatment. 4. Provide adequate and supplemental nutrition. 5. Order or Continue low air loss mattress. 6. When applicable maintain blood glucose levels per Providers order. Groin/scrotum/perineum: gentle routine hygiene and incontinence care with pH balanced cleanser and bath wipes. antifungal medication per provider orders: apply a light dusting to prevent caking. apply triad paste BID and PRN. use disposable pads underneath patient when in chair or bed. use proactive toileting to promote continence. Re-consult wound care Nurse for wound deterioration or wound changes.
[2025-08-28 15:16] VITALS: BP 121/76; PULSE 72; RESP 18; TEMP 37; O2SAT 93
--- NOTE | 2025-08-28 15:18 | MHC.CM.PN ---
per rounds pt refusing scope dc plan return to [facility] home
[2025-08-28 19:27] VITALS: BP 115/69; PULSE 70; RESP 18; TEMP 36.3; O2SAT 95
[2025-08-29] MEDS: Lactated Ringers 1,000 ML 125 ML IVCONT (01:31)
[2025-08-29 03:16] VITALS: BP 131/74; PULSE 70; RESP 18; TEMP 36; O2SAT 93
[2025-08-29] MEDS: oxyCODONE HCl Immed Release 5 MG TABLET 10 MG PO ×3 (04:39→16:58)
[2025-08-29] MEDS: metroNIDAZOLE/NS 500 MG/100 ML PIGGYBACK 100 MG IV (05:07)
[2025-08-29 07:23] VITALS: BP 115/71; PULSE 69; RESP 16; TEMP 36.1; O2SAT 93
[2025-08-29] MEDS: Potassium Chloride ER 10 MEQ TABLET.ER PO (08:13)
[2025-08-29] MEDS: NIFEdipine ER 30 MG TAB.ER.24 PO (08:14)
[2025-08-29] MEDS: 0.9 % Sodium Chloride Flush 3 ML SYRINGE IVFLUSH ×3 (08:15→23:47)
[2025-08-29 11:50] VITALS: BP 132/72; PULSE 71
--- NOTE | 2025-08-29 13:51 | P.PNIM_ITS ---
Subjective Subjective Date of Service: 08/29/25 Interval History: Refused colonoscopy prep last night. GI evaluated the patient today, reporting no plans for colonoscopy currently. Sitter reports that the patient has made multiple suicidal statements. Remains 1-1 sitter Review of Systems Review of Systems: Yes all other systems are reviewed and are negative Physical Exam 2 Exam: Exam: General: A&O x3, oriented to time place person and situation, comfortable, no pain Cardiac: S1, S2 auscultated with no S3/4, no MRG. Well perfused. Respiratory: Normal breath sounds auscultated throughout all lung zones, without wheezing, rales. Normal rate. GI/ : Mild to moderate tenderness in the left upper quadrant; moderate tenderness in the left lower and right lower quadrants. MSK: Normal ambulation without pain at bony prominences or musculature. Diffuse cachexia and muscle wasting of the upper and lower extremities bilaterally, temporal wasting noticed. Neurological: Normal neurological examination on overview, without obvious CN II-XII abnormalities. Vital Signs: Vital Signs: Last Vital Signs Temp 97.0 F 08/29/25 07:23 Pulse 71 08/29/25 11:50 Resp 16 08/29/25 07:23 BP 132/72 08/29/25 11:50 Pulse Ox 93 08/29/25 07:23 O2 Del Method Room Air 08/29/25 07:23 BMI result Body Mass Index 22.3 Objective Data Active Medications Acetaminophen (Acetaminophen 325 Mg Tablet) 650 mg PO Q6H PRN PRN Reason: Pain, Mild 1-3,fever,headache Last Admin: 08/28/25 00:23 Dose: 650 mg Documented By: DEISY Calcium Carbonate (Calcium Carbonate 750 Mg Tab.Chew) 750 mg PO Q4H PRN PRN Reason: Heartburn Clonidine HCl (Clonidine Hcl 0.1 Mg Tablet) 0.1 mg PO TID [facility]; Protocol Last Admin: 08/29/25 08:12 Dose: 0.1 mg Documented By: SEAN Docusate Sodium (Docusate Sodium 100 Mg Capsule) 100 mg PO BID PRN PRN Reason: Constipation Duloxetine HCl (Duloxetine Hcl 30 Mg Capsule.Dr) 30 mg PO BID [facility] Last Admin: 08/29/25 08:13 Dose: 30 mg Documented By: SEAN Hydroxyzine HCl (Hydroxyzine Hcl 25 Mg Tablet) 25 mg PO QID [facility] Last Admin: 08/29/25 12:27 Dose: 25 mg Documented By: SEAN Metronidazole (Flagyl) 500 mg in 100 mls @ 100 mls/hr IV Q8H [facility] Last Infusion: 08/29/25 06:07 Dose: Infused Documented By: ROSARIO Ceftriaxone Sodium 1 gm/ (Sodium Chloride) 50 mls @ 100 mls/hr IV DAILY [facility] Last Infusion: 08/29/25 09:00 Dose: Infused Documented By: SEAN Lisinopril (Lisinopril 5 Mg Tablet) 5 mg PO DAILY [facility]; Protocol Last Admin: 08/29/25 08:13 Dose: 5 mg Documented By: SEAN Magnesium Hydroxide (Milk Of Magnesia 30 Ml Oral.Susp) 30 ml PO DAILY PRN PRN Reason: Constipation Magnesium Oxide (Magnesium Oxide 400 Mg Tablet) 200 mg PO BID [facility] Last Admin: 08/29/25 08:14 Dose: 200 mg Documented By: SEAN Melatonin (Melatonin 3 Mg Tablet) 6 mg PO BEDTIME PRN PRN Reason: Insomnia Last Admin: 08/28/25 00:32 Dose: 6 mg Documented By: DEISY Metoprolol Tartrate (Metoprolol Tartrate 25 Mg Tablet) 75 mg PO BID [facility]; Protocol Last Admin: 08/29/25 08:13 Dose: 75 mg Documented By: SEAN Morphine Sulfate (Morphine Sulfate 4 Mg/Ml Cartridge) 3 mg IVPUSH Q4H PRN; Protocol PRN Reason: Pain, Moderate(Pain Scale 4-6) Last Admin: 08/29/25 11:51 Dose: 3 mg Documented By: SEAN Naloxone HCl (Naloxone Hcl 0.4 Mg/Ml Vial) 0.04 mg IVPUSH Q5M PRN PRN Reason: Excessive sedation or RR < 8 Nifedipine (Nifedipine Er 30 Mg Tab.Er.24) 30 mg PO DAILY [facility]; Protocol Last Admin: 08/29/25 08:14 Dose: 30 mg Documented By: SEAN Nystatin (Nystatin Powder 15 Gm Bottle) 1 appl TOPICAL BID [facility]; Protocol Last Admin: 08/29/25 08:10 Dose: 1 appl Documented By: SEAN Ondansetron HCl (Ondansetron Hcl 4 Mg/2 Ml Vial) 4 mg IVPUSH Q6H PRN PRN Reason: Nausea and Vomiting Last Admin: 08/28/25 08:41 Dose: 4 mg Documented By: SEAN Oxycodone HCl (Oxycodone Hcl Immed Release 5 Mg Tablet) 10 mg PO Q6H PRN PRN Reason: Pain, Moderate(Pain Scale 4-6) Last Admin: 08/29/25 10:25 Dose: 10 mg Documented By: SEAN Potassium Chloride (Potassium Chloride Er 10 Meq Tablet.Er) 10 meq PO DAILY [facility] Last Admin: 08/29/25 08:13 Dose: 10 meq Documented By: SEAN Senna (Sennosides 8.6 Mg Tablet) 17.2 mg PO BID PRN PRN Reason: Constipation Sodium Biphosphate/Sodium Phosphate (Sodium Phosphate,[place]-Dibasic 133 Ml Enema) 133 ml [place] ONCE PRN PRN Reason: Poor Colonoscopy Prep Results Sodium Biphosphate/Sodium Phosphate (Sodium Phosphate,[place]-Dibasic 133 Ml Enema) 133 ml [place] ONCE PRN PRN Reason: Poor Colonoscopy Prep Results Sodium Chloride (0.9 % Sodium Chloride Flush 3 Ml Syringe) 3 ml IVFLUSH QSHIFT [facility] Last Admin: 08/29/25 08:15 Dose: 3 ml Documented By: SEAN Trazodone HCl (Trazodone Hcl 50 Mg Tablet) 50 mg PO BEDTIME [facility] Last Admin: 08/28/25 20:11 Dose: 50 mg Documented By: ROSARIO Labs 08/28/25 08:12 08/28/25 08:12 Assessment and Plan (1) Depressive disorder: Status: Acute (2) Personality disorder in adult: Status: Acute (3) Passive suicidal ideations: Status: Acute (4) MDD (major depressive disorder), recurrent episode: Status: Acute (5) ICD (implantable cardioverter-defibrillator) in place: Status: Acute (6) Atrial fibrillation with RVR: Status: Acute (7) Acute colitis: Status: Acute (8) Mass of colon: Status: Acute (9) Diarrhea: Status: Acute (10) Diarrhea: Status: Acute (11) History of intravenous drug abuse: Status: Acute Plan 70-year-old male, [place]IDENTIAL resident, depression, paroxysmal AFib on Xarelto, IVDU, CHF AICD, DDD, HTN, history of C diff, possible splenic flexure colon mass and possible pancreatic mass, presents with complaints of nausea, diarrhea and abdominal pain, poor PO intake of food and water, admitted with acute on chronic exacerbation of his chronic colitis with failure to thrive, prerenal FELIZ & type II demand ischemia. Acute on chronic colitis Possible splenic flexure colonic mass Possible pancreatitis Admitted 08/09- 08/19 for acute colitis; with a differential diagnosis of splenic flexure colonic mass versus pancreatitis. Etiology undetermined to date Patient was plan for EGD and colonoscopy, which the patient refused again. Has complaints of pain. Makes repeated statements of suicidal intent. Previously MRCP could not be done d/t lack info on AICD CRP and ESR are both elevated Of note, CEA elevated 20 during recent admission, raising concerns for possible malignancy. Patient's symptoms are possibly ischemic in etiology, infectious, or IBD. PLAN - GI recommendations greatly appreciated - Flagyl and ceftriaxone continue - continue IVF - continue analgesia - continue antiemetic - refused colonoscopy 08/28 Failure to thrive Diarrhea Prerenal acute kidney injury Type 2 demand NSTEMI Elevated INR Patient suffered with significant dehydration prior to admission, with recurrent episodes of diarrhea. Poor p.o. intake of fluids and food. Patient was noted to have creatinine 1.3 on admission, with baseline creatinine 0.6. High sensitivity Troponin mildly elevated - no new changes on ECG or concerns for ACS. The patient was given IVF and hydrated well INR elevated to 1.4 on presentation, possibly 2/2 vitamin K deficiency PLAN - monitor INR - continue IVF while fast - clear liquid --> full liquid diet - thiamine - cyanocobalamin MDD Generalized anxiety disorder Suicidal ideation Insomnia Frequent vocalizations of suicidal intent and ideation. We will consult Psychiatry for further recommendations and assistance. PLAN - continue duloxetine 30 mg b.i.d. p.o. - psychiatry consult - continue trazodone 50 mg bedtime Opiate Dependence History of IVDU - Continue methadone - Continue morphine - Continue oxycodone PAF Rivaroxaban was held prior to colonoscopy PLAN - restart rivaroxaban - continue metoprolol 75 mg b.i.d. HTN continue lisinopril, metoprolol, nifedipine - [employer] - VTE: Rivaroxaban 10 mg OD p.o. - CODE STATUS: Full code - DIET: Clear liquid diet Total time managing care of this patient today: 45 minutes. Quality Stroke Does the patient have a stroke diagnosis?: No VTE Prior VTE?: No VTE Risk Level:: Medical - moderate - high VTE Device Contraindication: N/A - Device Ordered VTE Drug Contraindication: Treatment Not Indicated
[2025-08-29 15:52] VITALS: BP 133/86; PULSE 69; RESP 16; TEMP 36.5; O2SAT 93
--- NOTE | 2025-08-29 16:07 | PC.NURSE ---
Xarelto not available ,pharmacy notified
[2025-08-29] MEDS: Rivaroxaban 10 MG TABLET PO (18:26)
[2025-08-29 20:00] VITALS: BP 118/80; PULSE 76; RESP 18; TEMP 36.2; O2SAT 92
[2025-08-30 04:00] VITALS: BP 136/85; PULSE 98; RESP 18; TEMP 37.1; O2SAT 93
[2025-08-30] MEDS: oxyCODONE HCl Immed Release 5 MG TABLET 10 MG PO ×3 (05:08→19:43)
[2025-08-30 07:47] VITALS: BP 124/71; PULSE 87; RESP 18; TEMP 36.1; O2SAT 94
[2025-08-30] MEDS: Rivaroxaban 10 MG TABLET PO (08:58)
[2025-08-30] MEDS: NIFEdipine ER 30 MG TAB.ER.24 PO (08:59)
[2025-08-30] MEDS: 0.9 % Sodium Chloride Flush 3 ML SYRINGE IVFLUSH ×3 (09:00→20:57)
--- NOTE | 2025-08-30 12:35 | P.PNIM_ITS ---
Subjective Subjective Date of Service: 08/30/25 Interval History: Pleasant during conversation. Endorses that he does not wish for intervention; would be ok with doing colonoscopy, but not with endoscopy. Overall feels well - he is concerned and worried about doing intereventions that would make him feel worse overall. Still endorses suicidal ideations. Review of Systems Review of Systems: Yes all other systems are reviewed and are negative Physical Exam 2 Exam: Exam: General: A&O x3, oriented to time place person and situation, comfortable, no pain Cardiac: S1, S2 auscultated with no S3/4, no MRG. Well perfused. Respiratory: Normal breath sounds auscultated throughout all lung zones, without wheezing, rales. Normal rate. GI/ : Mild to moderate tenderness in the left upper quadrant; moderate tenderness in the left lower and right lower quadrants. MSK: Normal ambulation without pain at bony prominences or musculature. Diffuse cachexia and muscle wasting of the upper and lower extremities bilaterally, temporal wasting noticed. Neurological: Normal neurological examination on overview, without obvious CN II-XII abnormalities. Vital Signs: Vital Signs: Last Vital Signs Temp 97 F 08/30/25 07:47 Pulse 87 08/30/25 07:47 Resp 18 08/30/25 07:47 BP 124/71 08/30/25 07:47 Pulse Ox 94 08/30/25 07:47 O2 Del Method Room Air 08/30/25 07:47 BMI result Body Mass Index 22.3 Objective Data Active Medications Acetaminophen (Acetaminophen 325 Mg Tablet) 650 mg PO Q6H PRN PRN Reason: Pain, Mild 1-3,fever,headache Last Admin: 08/28/25 00:23 Dose: 650 mg Documented By: DEISY Calcium Carbonate (Calcium Carbonate 750 Mg Tab.Chew) 750 mg PO Q4H PRN PRN Reason: Heartburn Clonidine HCl (Clonidine Hcl 0.1 Mg Tablet) 0.1 mg PO TID [facility]; Protocol Last Admin: 08/30/25 08:58 Dose: 0.1 mg Documented By: ISAI Docusate Sodium (Docusate Sodium 100 Mg Capsule) 100 mg PO BID PRN PRN Reason: Constipation Duloxetine HCl (Duloxetine Hcl 30 Mg Capsule.Dr) 30 mg PO BID [facility] Last Admin: 08/30/25 08:59 Dose: 30 mg Documented By: ISAI Hydroxyzine HCl (Hydroxyzine Hcl 25 Mg Tablet) 25 mg PO QID [facility] Last Admin: 08/30/25 12:14 Dose: 25 mg Documented By: ISAI Ceftriaxone Sodium 1 gm/ (Sodium Chloride) 50 mls @ 100 mls/hr IV DAILY [facility] Last Infusion: 08/30/25 09:35 Dose: Infused Documented By: ISAI Lisinopril (Lisinopril 5 Mg Tablet) 5 mg PO DAILY [facility]; Protocol Last Admin: 08/30/25 08:59 Dose: 5 mg Documented By: ISAI Magnesium Hydroxide (Milk Of Magnesia 30 Ml Oral.Susp) 30 ml PO DAILY PRN PRN Reason: Constipation Magnesium Oxide (Magnesium Oxide 400 Mg Tablet) 200 mg PO BID [facility] Last Admin: 08/30/25 08:58 Dose: 200 mg Documented By: ISAI Melatonin (Melatonin 3 Mg Tablet) 6 mg PO BEDTIME PRN PRN Reason: Insomnia Last Admin: 08/28/25 00:32 Dose: 6 mg Documented By: DEISY Metoprolol Tartrate (Metoprolol Tartrate 25 Mg Tablet) 75 mg PO BID [facility]; Protocol Last Admin: 08/30/25 08:59 Dose: 75 mg Documented By: ISAI Metronidazole (Metronidazole 500 Mg Tablet) 500 mg PO Q8H [facility] Last Admin: 08/30/25 05:04 Dose: 500 mg Documented By: SURENDRA Morphine Sulfate (Morphine Sulfate 4 Mg/Ml Cartridge) 3 mg IVPUSH Q4H PRN; Protocol PRN Reason: Pain, Moderate(Pain Scale 4-6) Last Admin: 08/30/25 09:50 Dose: 3 mg Documented By: ISAI Naloxone HCl (Naloxone Hcl 0.4 Mg/Ml Vial) 0.04 mg IVPUSH Q5M PRN PRN Reason: Excessive sedation or RR < 8 Nifedipine (Nifedipine Er 30 Mg Tab.Er.24) 30 mg PO DAILY [facility]; Protocol Last Admin: 08/30/25 08:59 Dose: 30 mg Documented By: ISAI Nystatin (Nystatin Powder 15 Gm Bottle) 1 appl TOPICAL BID [facility]; Protocol Last Admin: 08/30/25 09:00 Dose: 1 appl Documented By: ISAI Ondansetron HCl (Ondansetron Hcl 4 Mg/2 Ml Vial) 4 mg IVPUSH Q6H PRN PRN Reason: Nausea and Vomiting Last Admin: 08/29/25 16:57 Dose: 4 mg Documented By: SEAN Oxycodone HCl (Oxycodone Hcl Immed Release 5 Mg Tablet) 10 mg PO Q6H PRN PRN Reason: Pain, Moderate(Pain Scale 4-6) Last Admin: 08/30/25 12:15 Dose: 10 mg Documented By: ISAI Potassium Chloride (Potassium Chloride Er 10 Meq Tablet.Er) 10 meq PO DAILY [facility] Last Admin: 08/30/25 09:14 Dose: Not Given Documented By: ISAI Non-Admin Reason: Patient Refused Rivaroxaban (Rivaroxaban 10 Mg Tablet) 10 mg PO DAILY [facility] Last Admin: 08/30/25 08:58 Dose: 10 mg Documented By: ISAI Senna (Sennosides 8.6 Mg Tablet) 17.2 mg PO BID PRN PRN Reason: Constipation Sodium Biphosphate/Sodium Phosphate (Sodium Phosphate,[place]-Dibasic 133 Ml Enema) 133 ml SD ONCE PRN PRN Reason: Poor Colonoscopy Prep Results Sodium Biphosphate/Sodium Phosphate (Sodium Phosphate,[place]-Dibasic 133 Ml Enema) 133 ml SD ONCE PRN PRN Reason: Poor Colonoscopy Prep Results Sodium Chloride (0.9 % Sodium Chloride Flush 3 Ml Syringe) 3 ml IVFLUSH QSHIFT [facility] Last Admin: 08/30/25 09:00 Dose: 3 ml Documented By: ISAI Trazodone HCl (Trazodone Hcl 50 Mg Tablet) 50 mg PO BEDTIME [facility] Last Admin: 08/29/25 20:46 Dose: 50 mg Documented By: TUMASY Labs 08/28/25 08:12 08/28/25 08:12 Assessment and Plan (1) Depressive disorder: Status: Acute (2) Personality disorder in adult: Status: Acute (3) Passive suicidal ideations: Status: Acute (4) MDD (major depressive disorder), recurrent episode: Status: Acute (5) PTSD (post-traumatic stress disorder): Status: Acute (6) History of intravenous drug abuse: Status: Acute (7) Opioid use disorder: Status: Acute (8) Hypertension: Status: Acute (9) Atrial fibrillation with RVR: Status: Acute (10) ICD (implantable cardioverter-defibrillator) in place: Status: Acute (11) Acute colitis: Status: Acute (12) Hyperchloremic metabolic acidosis: Status: Acute Plan 70-year-old male, [facility] resident, depression, paroxysmal AFib on Xarelto, IVDU, CHF AICD, DDD, HTN, history of C diff, possible splenic flexure colon mass and possible pancreatic mass, presents with complaints of nausea, diarrhea and abdominal pain, poor PO intake of food and water, admitted with acute on chronic exacerbation of his chronic colitis with failure to thrive, prerenal FELIZ & type II demand ischemia. Acute on chronic colitis Possible splenic flexure colonic mass Possible pancreatitis Admitted 08/09- 08/19 for acute colitis; with a differential diagnosis of splenic flexure colonic mass versus pancreatitis. Etiology undetermined to date Patient was plan for EGD and colonoscopy, which the patient refused again. Has complaints of pain. Makes repeated statements of suicidal intent. Previously MRCP could not be done d/t lack info on AICD CRP and ESR are both elevated Of note, CEA elevated 20 during recent admission, raising concerns for possible malignancy. Patient's symptoms are possibly ischemic in etiology, infectious, or IBD. PLAN - GI recommendations greatly appreciated - Flagyl and ceftriaxone continue - continue IVF - continue analgesia - continue antiemetic - refused colonoscopy 08/28 Failure to thrive Diarrhea Prerenal acute kidney injury Type 2 demand NSTEMI Elevated INR Patient suffered with significant dehydration prior to admission, with recurrent episodes of diarrhea. Poor p.o. intake of fluids and food. Patient was noted to have creatinine 1.3 on admission, with baseline creatinine 0.6. High sensitivity Troponin mildly elevated - no new changes on ECG or concerns for ACS. The patient was given IVF and hydrated well INR elevated to 1.4 on presentation, possibly 2/2 vitamin K deficiency PLAN - monitor INR - continue IVF while fast - clear liquid --> full liquid diet - thiamine - cyanocobalamin MDD Generalized anxiety disorder Suicidal ideation Insomnia Frequent vocalizations of suicidal intent and ideation. We will consult Psychiatry for further recommendations and assistance. PLAN - continue duloxetine 30 mg b.i.d. p.o. - psychiatry consult - continue trazodone 50 mg bedtime Opiate Dependence History of IVDU - Continue methadone - Continue morphine - Continue oxycodone PAF Rivaroxaban was held prior to colonoscopy PLAN - restart rivaroxaban - continue metoprolol 75 mg b.i.d. HTN continue lisinopril, metoprolol, nifedipine - QUALITY [employer] - VTE: Rivaroxaban 10 mg OD p.o. - CODE STATUS: Full code - DIET: Clear liquid diet Total time managing care of this patient today: 35 minutes. Quality Stroke Does the patient have a stroke diagnosis?: No VTE Prior VTE?: No VTE Risk Level:: Medical - moderate - high VTE Device Contraindication: N/A - Device Ordered VTE Drug Contraindication: Treatment Not Indicated
--- NOTE | 2025-08-30 13:36 | MHC.CM.PN ---
Addendum entered by Neha Dorman 08/30/25 13:46: SABINO CELL IS [phone] WORK [id number] Original Note: RECEIVED CALL FROM TABITHA AGUILAR AND HCP FOR PT SHE SAYS THAT PT HAS BEEN THREATIMG STAFF AND RESIDENTS WITH [facility]..T/W EXPLANED THAT [facility] IS PAYING FOR PTS APT SHE SAYS THAT THEY HAD BEEN LOOKING FOR A LTCBED PRIOR TO REDMISSION TO HOSPITIAL T/W EXPLINED THAT PT WILL LIKELY GO [facility] FROM HERE AND [facility] WAS MEDICALLY AND MENTALLY STABLE AND THEY COULD CONTINUE THE LTC BED SEARCH FROM THERE
[2025-08-30 15:33] VITALS: BP 129/79; PULSE 87; RESP 16; TEMP 36.3; O2SAT 92
[2025-08-30 19:04] VITALS: BP 107/68; PULSE 74; RESP 18; TEMP 36.9; O2SAT 92
[2025-08-31] VITALS (7 sets, daily range): BP systolic 95–142; BP diastolic 65–89; PULSE 72–97; RESP 16–18; TEMP 36–36.6; O2SAT 92–94
[2025-08-31] MEDS: Rivaroxaban 10 MG TABLET PO (08:44)
[2025-08-31] MEDS: NIFEdipine ER 30 MG TAB.ER.24 PO (10:49)
[2025-08-31] MEDS: oxyCODONE HCl Immed Release 5 MG TABLET 10 MG PO ×2 (12:16→20:12)
--- NOTE | 2025-08-31 12:34 | P.PNIM_ITS ---
Subjective Subjective Date of Service: 08/31/25 Interval History: No new symptoms or issues from yesterday. Patient's diarrhea has resolved. Abdominal pain still persistent. Gastroenterology communication, agreeable to holding off further colonoscopy/EGD as per patient preference. Pending psychiatry consultation for recommendations on clearance/ safe discharge. \Further discussion regarding goals of care to be held with the patient after psychiatry clearance Physical Exam 2 Exam: Exam: General: A&O x3, oriented to time place person and situation, comfortable, no pain Cardiac: S1, S2 auscultated with no S3/4, no MRG. Well perfused. Respiratory: Normal breath sounds auscultated throughout all lung zones, without wheezing, rales. Normal rate. GI/ : Mild to moderate tenderness in the left upper quadrant; moderate tenderness in the left lower and right lower quadrants. MSK: Normal ambulation without pain at bony prominences or musculature. Diffuse cachexia and muscle wasting of the upper and lower extremities bilaterally, temporal wasting noticed. Neurological: Normal neurological examination on overview, without obvious CN II-XII abnormalities. Vital Signs: Vital Signs: Last Vital Signs Temp 97.0 F 08/31/25 07:33 Pulse 72 08/31/25 10:50 Resp 16 08/31/25 07:33 BP 135/85 08/31/25 10:49 Pulse Ox 94 08/31/25 07:33 O2 Del Method Room Air 08/31/25 07:33 BMI result Body Mass Index 22.3 Objective Data Active Medications Acetaminophen (Acetaminophen 325 Mg Tablet) 650 mg PO Q6H PRN PRN Reason: Pain, Mild 1-3,fever,headache Last Admin: 08/28/25 00:23 Dose: 650 mg Documented By: DEISY Calcium Carbonate (Calcium Carbonate 750 Mg Tab.Chew) 750 mg PO Q4H PRN PRN Reason: Heartburn Clonidine HCl (Clonidine Hcl 0.1 Mg Tablet) 0.1 mg PO TID [facility]; Protocol Last Admin: 08/31/25 10:50 Dose: 0.1 mg Documented By: DIANNE Docusate Sodium (Docusate Sodium 100 Mg Capsule) 100 mg PO BID PRN PRN Reason: Constipation Duloxetine HCl (Duloxetine Hcl 30 Mg Capsule.) 30 mg PO BID [facility] Last Admin: 08/31/25 08:44 Dose: 30 mg Documented By: DIANNE Hydroxyzine HCl (Hydroxyzine Hcl 25 Mg Tablet) 25 mg PO QID [facility] Last Admin: 08/31/25 12:16 Dose: 25 mg Documented By: DIANNE Ceftriaxone Sodium 1 gm/ (Sodium Chloride) 50 mls @ 100 mls/hr IV DAILY [facility] Last Infusion: 08/31/25 10:54 Dose: Infused Documented By: DIANNE Lisinopril (Lisinopril 5 Mg Tablet) 5 mg PO DAILY [facility]; Protocol Last Admin: 08/31/25 10:50 Dose: 5 mg Documented By: DIANNE Magnesium Hydroxide (Milk Of Magnesia 30 Ml Oral.Susp) 30 ml PO DAILY PRN PRN Reason: Constipation Magnesium Oxide (Magnesium Oxide 400 Mg Tablet) 200 mg PO BID [facility] Last Admin: 08/31/25 08:44 Dose: 200 mg Documented By: DIANNE Melatonin (Melatonin 3 Mg Tablet) 6 mg PO BEDTIME PRN PRN Reason: Insomnia Last Admin: 08/28/25 00:32 Dose: 6 mg Documented By: DEISY Metoprolol Tartrate (Metoprolol Tartrate 25 Mg Tablet) 75 mg PO BID [facility]; Protocol Last Admin: 08/31/25 10:50 Dose: 75 mg Documented By: DIANNE Metronidazole (Metronidazole 500 Mg Tablet) 500 mg PO Q8H [facility] Last Admin: 08/31/25 05:26 Dose: 500 mg Documented By: ODRISGabriel Morphine Sulfate (Morphine Sulfate 4 Mg/Ml Cartridge) 2 mg IVPUSH Q4H PRN; Protocol PRN Reason: Pain, Severe (Pain Scale 7-10) Naloxone HCl (Naloxone Hcl 0.4 Mg/Ml Vial) 0.04 mg IVPUSH Q5M PRN PRN Reason: Excessive sedation or RR < 8 Nifedipine (Nifedipine Er 30 Mg Tab.Er.24) 30 mg PO DAILY [facility]; Protocol Last Admin: 08/31/25 10:49 Dose: 30 mg Documented By: DIANNE Nystatin (Nystatin Powder 15 Gm Bottle) 1 appl TOPICAL BID [facility]; Protocol Last Admin: 08/31/25 10:51 Dose: 1 appl Documented By: DIANNE Ondansetron HCl (Ondansetron Hcl 4 Mg/2 Ml Vial) 4 mg IVPUSH Q6H PRN PRN Reason: Nausea and Vomiting Last Admin: 08/30/25 17:25 Dose: 4 mg Documented By: ISAI Oxycodone HCl (Oxycodone Hcl Immed Release 5 Mg Tablet) 10 mg PO Q6H PRN PRN Reason: Pain, Moderate(Pain Scale 4-6) Last Admin: 08/31/25 12:16 Dose: 10 mg Documented By: DIANNE Potassium Chloride (Potassium Chloride Er 10 Meq Tablet.Er) 10 meq PO DAILY [facility] Last Admin: 08/31/25 10:54 Dose: Not Given Documented By: DIANNE Non-Admin Reason: Per instructions- ended on 08/26/25 Rivaroxaban (Rivaroxaban 10 Mg Tablet) 10 mg PO DAILY [facility] Last Admin: 08/31/25 08:44 Dose: 10 mg Documented By: DIANNE Senna (Sennosides 8.6 Mg Tablet) 17.2 mg PO BID PRN PRN Reason: Constipation Sodium Biphosphate/Sodium Phosphate (Sodium Phosphate,[place]-Dibasic 133 Ml Enema) 133 ml ND ONCE PRN PRN Reason: Poor Colonoscopy Prep Results Sodium Biphosphate/Sodium Phosphate (Sodium Phosphate,[place]-Dibasic 133 Ml Enema) 133 ml ND ONCE PRN PRN Reason: Poor Colonoscopy Prep Results Sodium Chloride (0.9 % Sodium Chloride Flush 3 Ml Syringe) 3 ml IVFLUSH QSHIFT [facility] Last Admin: 08/31/25 08:53 Dose: Not Given Documented By: DIANNE Non-Admin Reason: Previously Administered Trazodone HCl (Trazodone Hcl 50 Mg Tablet) 50 mg PO BEDTIME [facility] Last Admin: 08/30/25 20:57 Dose: 50 mg Documented By: ODRISM Labs 08/28/25 08:12 08/28/25 08:12 Assessment and Plan (1) Personality disorder in adult: Status: Acute (2) MDD (major depressive disorder), recurrent episode: Status: Acute (3) History of intravenous drug abuse: Status: Acute (4) Atrial fibrillation with RVR: Status: Acute (5) Thrombocytopenia: Status: Acute (6) Acute colitis: Status: Acute (7) Mass of colon: Status: Acute (8) Diarrhea: Status: Acute Plan 70-year-old male, [facility] resident, depression, paroxysmal AFib on Xarelto, IVDU, CHF AICD, DDD, HTN, history of C diff, possible splenic flexure colon mass and possible pancreatic mass, presents with complaints of nausea, diarrhea and abdominal pain, poor PO intake of food and water, admitted with acute on chronic exacerbation of his chronic colitis with failure to thrive, prerenal FELIZ & type II demand ischemia. Acute on chronic colitis Possible splenic flexure colonic mass Possible pancreatitis Admitted 08/09- 08/19 for acute colitis; with a differential diagnosis of splenic flexure colonic mass versus pancreatitis. Etiology undetermined to date Patient was plan for EGD and colonoscopy, which the patient refused again. Has complaints of pain. Makes repeated statements of suicidal intent. Previously MRCP could not be done d/t lack info on AICD CRP and ESR are both elevated Of note, CEA elevated 20 during recent admission, raising concerns for possible malignancy. Patient's symptoms are possibly ischemic in etiology, infectious, or IBD. PLAN - GI recommendations greatly appreciated - Flagyl and ceftriaxone continue - continue IVF - continue analgesia - continue antiemetic - refused colonoscopy 08/28 Failure to thrive Diarrhea Prerenal acute kidney injury Type 2 demand NSTEMI Elevated INR Patient suffered with significant dehydration prior to admission, with recurrent episodes of diarrhea. Poor p.o. intake of fluids and food. Patient was noted to have creatinine 1.3 on admission, with baseline creatinine 0.6. High sensitivity Troponin mildly elevated - no new changes on ECG or concerns for ACS. The patient was given IVF and hydrated well INR elevated to 1.4 on presentation, possibly 2/2 vitamin K deficiency PLAN - monitor INR - continue IVF while fast - clear liquid --> full liquid diet - thiamine - cyanocobalamin MDD Generalized anxiety disorder Suicidal ideation Insomnia Frequent vocalizations of suicidal intent and ideation. We will consult Psychiatry for further recommendations and assistance. PLAN - pending psychiatric clearance in the setting of the patient's frequent suicidal ideation. - continue duloxetine 30 mg b.i.d. p.o. - psychiatry consult - continue trazodone 50 mg bedtime Opiate Dependence History of IVDU - Continue methadone - Continue morphine - Continue oxycodone PAF Rivaroxaban was held prior to colonoscopy PLAN - restart rivaroxaban - continue metoprolol 75 mg b.i.d. HTN continue lisinopril, metoprolol, nifedipine - [employer] - VTE: Rivaroxaban 10 mg OD p.o. - CODE STATUS: Full code - goals of care discussed in depth with the patient after clearance from Psychiatry given his suicidal ideation. Patient has repeatedly expressed a wish to focus on comfort and noninvasive testing. - DIET: Clear liquid diet Total time managing care of this patient today: 35 minutes. Quality Stroke Does the patient have a stroke diagnosis?: No VTE Prior VTE?: No VTE Risk Level:: Medical - moderate - high VTE Device Contraindication: N/A - Device Ordered VTE Drug Contraindication: Treatment Not Indicated
--- NOTE | 2025-08-31 15:25 | MHC.CM.PN ---
CLARITA RECEIVED A CALL FROM PTS PCP, HE REPORTS [facility] CALLED HIM REPORTING THEY WERE TOLD PT MAY BE FIXED AND THEN RETURN. HE SAYS TABITHA HAS BEEN TRYING TO GET HIM INTO LTC FOR SOME TIME WITH NO LUCK CLARITA EXPLAINED PT IS NOT INTERESTED IN LTC AND THERE WOULD BE MANY BARRIERS TO PLACEMENT EVEN IF HE AGREED. PCP UNDERSTOOD THE BARRIERS TO PLACEMENT AND AGREES PTS HCP WOULD NOT BE INVOKED PT IS QUITE AWARE OF WHAT HE IS DOING. PCP UNDERSTANDS PT WILL BE DISCHARGING BACK TO [facility] ONCE CLEARED
[2025-08-31] MEDS: 0.9 % Sodium Chloride Flush 3 ML SYRINGE IVFLUSH (20:12)
[2025-09-01 03:37] VITALS: BP 132/81; PULSE 81; RESP 18; TEMP 36.5; O2SAT 95
[2025-09-01] MEDS: oxyCODONE HCl Immed Release 5 MG TABLET 10 MG PO ×3 (03:52→14:13)
[2025-09-01 08:00] VITALS: BP 135/80; PULSE 100; RESP 17; TEMP 36.3; O2SAT 94
[2025-09-01] MEDS: Rivaroxaban 10 MG TABLET PO (08:32)
[2025-09-01] MEDS: NIFEdipine ER 30 MG TAB.ER.24 PO (08:33)
[2025-09-01] MEDS: 0.9 % Sodium Chloride Flush 3 ML SYRINGE IVFLUSH (08:34)
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
--- NOTE | 2025-09-01 12:37 | MHC.CM.PN ---
pt cleared by psych and medical called bharat spoke with jean paul ptshcp and rohit of bharat she will be expectinf [facility] shuttle transport arranged for 2
[2025-09-01 14:01] VITALS: BP 131/81; PULSE 93; RESP 17; TEMP 36.8; O2SAT 92
== END 2025-09-01 14:19 | disposition other institution (70) | DRG 391 ==
LOC: HO.ED 15:05 → HO.EDOVER 15:41 → HO.S3 16:40
PROVIDERS: Nurse Practitioner; Admitting Provider Internal Medicine; Emergency Provider Emergency Medicine Emergency Medical Services; PCP Internal Medicine; Visit Provider Hospitalist
DX: K52.9 Noninfective gastroenteritis and colitis, unspecified (principal); I21.A1 Myocardial infarction type 2; K85.90 Acute pancreatitis without necrosis or infection, unspecified; F11.20 Opioid dependence, uncomplicated; R45.851 Suicidal ideations; N17.9 Acute kidney failure, unspecified; R79.1 Abnormal coagulation profile; R62.7 Adult failure to thrive; F32.9 Major depressive disorder, single episode, unspecified; F41.9 Anxiety disorder, unspecified; Z68.22 Body mass index [BMI] 22.0-22.9, adult; I48.0 Paroxysmal atrial fibrillation; G47.00 Insomnia, unspecified; Z20.822 Contact with and (suspected) exposure to COVID-19; Z91.52 Personal history of nonsuicidal self-harm; K63.9 Disease of intestine, unspecified; Z95.810 Presence of automatic (implantable) cardiac defibrillator; Z79.01 Long term (current) use of anticoagulants; Z79.899 Other long term (current) drug therapy
CPT/HCPCS: 36415; 74177; 80048; 80053; 82550; 82803; 83605; 83735; 84132; 84484; 85025; 85027; 85610; 85652; 85730; 86140; 87493; 87502; 87635; 93005; 99285; J0696; J1836; J2270; J2405; J7120; Q9967; S9485

== ENCOUNTER → 2025-08-25 11:04 | Outpatient (BNV) | payer OTHER, SELFPAY | PROVIDERS: Emergency Provider Emergency Medicine Emergency Medical Services; PCP Internal Medicine; Visit Provider Internal Medicine Cardiovascular Disease | DX: I44.0 Atrioventricular block, first degree (principal); I25.2 Old myocardial infarction | CPT/HCPCS: 93010 ==

== ENCOUNTER → 2025-08-25 11:23 | Outpatient (BNV) | payer OTHER, SELFPAY | PROVIDERS: Emergency Provider Emergency Medicine Emergency Medical Services; PCP Internal Medicine; Visit Provider Radiology Diagnostic Radiology | DX: K80.20 Calculus of gallbladder without cholecystitis without obstruction (principal); J90 Pleural effusion, not elsewhere classified; R19.5 Other fecal abnormalities | CPT/HCPCS: 74177 ==

== ENCOUNTER → 2025-08-25 15:30 | Outpatient (BNV) | payer OTHER, SELFPAY | PROVIDERS: Admitting Provider Internal Medicine; Emergency Provider Emergency Medicine Emergency Medical Services; PCP Internal Medicine; Visit Provider Internal Medicine Gastroenterology | DX: K52.9 Noninfective gastroenteritis and colitis, unspecified (principal); R10.9 Unspecified abdominal pain | CPT/HCPCS: 99222 ==

== ENCOUNTER → 2025-08-25 15:30 | Outpatient (BNV) | payer OTHER, SELFPAY | PROVIDERS: Admitting Provider Internal Medicine; Emergency Provider Emergency Medicine Emergency Medical Services; PCP Internal Medicine; Visit Provider Internal Medicine | DX: K52.9 Noninfective gastroenteritis and colitis, unspecified (principal) | CPT/HCPCS: 99232 ==

== ENCOUNTER 2025-09-01 15:21 | Emergency (ER) | payer OTHER, SELFPAY ==
[2025-09-01 15:28] VITALS: BP 113/56; PULSE 92; O2SAT 97
[2025-09-01 15:35] VITALS: BP 123/83; PULSE 78; RESP 16; TEMP 36.6; O2SAT 94; BMI 23.2
--- NOTE | 2025-09-01 15:43 | MHC.CM.PN ---
Addendum entered by Leia Tejada 09/02/25 14:04: LEVEL ONE AND PT EVAL SENT TO SNF PT TO DC PENDING AUTH Addendum entered by Leia Tejada 09/02/25 11:57: PT EVAL COMPLETED, STR RECOMMENDED PT AWARE [facility] IS OFFERING, HE HAS ACCEPTED BED PT WILL NEED LEVEL I & II AND INSURANCE AUTH PRIOR TO DC Original Note: CM ALERTED OF PTS RETURN TO THE ED, HE WAS DISCHARGED FROM [place] [id number] ABOUT AN HOUR AGO CM CALLED [facility] AND SPOKE TO CES[place]IA WHO REPORTS SHE FOUND HIM SITTING ON THE PORCH WITH HIS PANTS DOWN HE TOLD HER HE COULD NOT STAND TO PULL THEM UP BECAUSE HE WAS WEAK A RAG . SHE SAYS HE ALSO TOLD HER HE HAD ONLY BEEN ON LIQUIDS DURING THE ADMISSION CM INFORMED HER HE WAS CHANGED TO A REGULAR DIET ON 08/28/25 AND HAD EATEN SOLIDS PER HIS CHART PER DISCUSSION, A PT EVAL WILL BE REQUESTED, SHE UNDERSTANDS IF PT IS CLEARED, HE WILL DC AND NOT STAY THROUGH THE WEEKEND CM ALSO DISCUSSED PTS CHRONIC SI AND THAT IT MAY BE A BARRIER TO PLACEMENT CESILIA IS AWARE AND STATES SHE IS NOT WORRIED ABOUT THE SI SHE KNOWS IT IS HIS BASELINE, HOWEVER PT MUST BE ABLE TO AMBULATE AND TOILET HIMSELF AT THE REST HOME CM MET WITH PT WHO STATES HE MAY BE WILLING TO GO TO STR HE KNOWS HE WILL WAIT FOR A PT EVAL PER DISCUSSION, CESILIA WILL BE ASKED TO BRING IN SHOES FOR HIM IF HE GOES TO REHAB
--- NOTE | 2025-09-01 15:43 | ED.GENADULT ---
HPI - General Adult General Chief complaint: General Medical Stated complaint: returning from snf, weakness Time Seen by Provider: 09/01/25 15:43 Source: patient and EMS Mode of arrival: EMS Limitations: no limitations History of Present Illness ED Provider: Ewa Pimentel PA-C HPI narrative: Patient is a 70 year old assigned male at with a history of major depressive disorder (MDD), paroxysmal atrial fibrillation (AFib) on anticoagulation, hypertension, opioid dependence (on methadone), intravenous drug use, AICD/DDD pacemaker, chronic vague suicidality, and prior C. difficile infection presenting to the emergency department today with continued difficulty ambulating and chronic generalized pain. Patient states that he was admitted here recently for this and when he got back to [facility], they told him he needed to return to the hospital to be placed into a correction facility. Patient denies any other complaints at this time. Related Data Home Medications ?Medication ?Instructions ?Recorded ?Confirmed hydroxyzine HCl 25 mg tablet 25 mg PO QID anxiety/insomnia 12/12/23 09/01/25 rivaroxaban 20 mg tablet (Xarelto) 20 mg PO DAILY@1700 07/04/24 09/01/25 duloxetine 30 mg capsule,delayed 30 mg PO BID 03/23/25 09/01/25 release clonidine HCl 0.1 mg tablet 0.1 mg PO TID 08/09/25 09/01/25 docusate sodium 100 mg capsule 100 mg PO BID PRN Constipation 08/09/25 09/02/25 (Colace) methadone 10 mg tablet 5 mg PO Q6H PRN Pain 08/09/25 09/01/25 oxycodone 15 mg tablet 15 mg PO Q6H PRN Pain 08/09/25 09/01/25 magnesium oxide 400 mg (241.3 mg 200 mg PO BID 08/25/25 09/02/25 magnesium) tablet metoprolol tartrate 50 mg tablet 75 mg PO BID 08/25/25 09/01/25 Previous Rx's ?Medication ?Instructions ?Recorded lisinopril 5 mg tablet 1 tab PO DAILY #30 tabs 10/28/22 trazodone 50 mg tablet 1 tab PO BEDTIME #30 tabs 10/28/22 nifedipine 30 mg tablet,extended 30 mg PO DAILY #90 tabs 08/22/25 release 24 hr (Procardia XL) cephalexin 500 mg capsule 500 mg PO BID 3 days #6 caps 09/01/25 Allergies Allergy/AdvReac Type Severity Reaction Status Date / Time ergotamine (ERGOTAMINE) AdvReac Severe NAUSEA Verified 09/01/25 15:40 Review of Systems Constitutional: Constitutional: Reports as per HPI Eyes: Eyes: Reports as per HPI ENT: Reports as per HPI Cardiovascular: Cardiovascular: Reports as per HPI Respiratory: Respiratory: Reports as per HPI Gastrointestinal: Gastrointestinal: Reports as per HPI Genitourinary: Genitourinary: Reports as per HPI Musculoskeletal: Musculoskeletal: Reports as per HPI Integumentary/Breasts: Skin/Breast: Reports as per HPI Neurologic: Reports as per HPI Psychiatric: Psychiatric: Reports as per HPI Endocrine: Endocrine: Reports as per HPI Hematologic/Lymphatic: Hematologic/Lymphatic: Reports as per HPI Allergic/Immunologic: Allergic/Immunologic: Reports as per HPI PMF Past Medical History Attestation statement: The following information was validated with the patient. Source: old records reviewed and nursing notes reviewed Medical History MDD (major depressive disorder), recurrent episode, moderate Paroxysmal atrial fibrillation History of intravenous drug abuse Presence of combination internal cardiac defibrillator (ICD) and pacemaker Ventricular arrhythmia Opioid dependence Lumbar disc herniation Thoracic disc herniation Cervical disc herniation Opioid abuse Pacemaker HTN (hypertension) Surgical History History of spinal fusion History of hip replacement Family History Family History Mother HTN (hypertension) CHF (congestive heart failure) Social History Social History Household Members: None Household Members Other:: lives with other roommates Housing: Assisted Living Facility Housing Other:: bharat Do you presently have visiting nurse or other home services: No Alcohol intake: former Comment: !:! sitter Patient Tobacco Use Status: Never used Tobacco Smoked in Last 30 Days: No e-Cigarette/Vaping Use: Never Used Second Hand Smoke Exposure: No Use of substances other than those prescribed or required for medical reasons: Yes Substance Use Type: Marijuana Substance Use Frequency: Chronic Longstanding Advance Directives: Yes Advance Directives on File: Yes Advance Directives Date on File: 04/29/24 Do you have a plan to hurt others: No Plan service: No Current occupational status: retired and disabled Sexual orientation: Straight/Heterosexual Physical Exam ED Vital Signs: Vital Signs - 24 hr 09/05/25 14:20 Temperature 97.7 F Pulse Rate 74 Respiratory Rate 16 Blood Pressure 113/74 Pulse Oximetry 98 Oxygen Delivery Method Room Air BMI result Body Mass Index 23.2 Const General: cooperative, no acute distress, alert and awake Nutritional Appearance: well nourished Orientation/consciousness: patient oriented x3 HENMT Head: Yes normal to inspection and Yes atraumatic Ears: hearing grossly normal bilaterally and external ears normal General nose exam: Normal external nose present, no nasal discharge noted and no epistaxis Face and sinus: Yes normal facial exam, No abrasion and No laceration Mouth: Normal oral and palatal mucosa present, no drooling and no muffled voice Eyes General: appearance normal, both eyes and all related structures Periorbital: periorbital findings normal Eyelids: Yes eyelids normal Conjunctivae: conjunctivae normal Pupils: Equal, round and reactive pupils present EOM: EOMs intact bilaterally Neck Neck: Yes normal visual inspection and Yes full ROM Resp Effort & Inspection: normal respiratory effort and able to speak in complete sentences Neuro General: patient oriented x3, moves all extremities and CN's II-XI intact bilaterally Cranial nerves: Yes Equal, round and reactive pupils present Cognition (Neuro): normal cognition Extrem General: Yes normal to inspection, Yes full ROM and Yes capillary refill normal Psych Appearance: grossly normal Mental Status: mental status grossly normal Affect: normal affect Attitude: cooperative Thought process: Normal thought process present Thought content: Normal thought content present Insight: Good insight present (Psych) Course Course Course Narrative: Time: 17:36 Date: 09/02/25 Provider: Simin Hays NP Patient in physician observation for case management needs. No acute events reported overnight.? No current issues or complaints. VS stable. Patient is pending pending PT/CM eval and possible placement. Will continue to monitor. Reevaluation(s) Reevaluation #1: The patient was being held for physical therapy and case management, he is verbalizing to nursing staff ?I want to kill myself, if I find a way I will do it?. He is now going to be a care team consult. Time: 04:39 Date: 09/03/25 Provider: VLADIMIR Verdin Patient in physician observation for psychiatric evaluation.? No acute events reported overnight. No current complaints. VS stable.? Patient is in bed search status/pending CARE team evaluation. Will continue to monitor. Time: 04:39 Reevaluation #2: Time: 06:14 Date: 09/04/25 Provider: Brandy Willett, DO Patient in physician observation for placement.? No acute events reported overnight. No current complaints. VS stable.? Patient is pending a bed placement pending insurance authorization. Will continue to monitor. Time: 05:44 Date: 09/05/25 Provider: Brandy Willett, DO Patient in physician observation for placement? No acute events reported overnight. No current complaints. VS stable.? Pending placement. Will continue to monitor. Brandy Willett, 09/05/25 1132 At this time the patient has p.r.n. methadone dosing as a barrier to his placement he is requesting we hold as he has oxycodone if needed in order to get placed Dr. Posada 09/05/2025 [id number] Patient cleared to be discharged back to [facility]. physician observation ended. Medications Administered Discontinued Medications Generic Name Dose Route Start Last Admin Trade Name Freq PRN Reason Stop Dose Admin Cephalexin HCl 500 mg 09/03/25 09:00 09/05/25 08:17 Cephalexin 500 Mg Capsule PO 500 mg BID [place] Administration Clonidine HCl 0.1 mg 09/01/25 21:00 09/05/25 15:47 Clonidine Hcl 0.1 Mg Tablet PO 0.1 mg TID [place] Administration Protocol Duloxetine HCl 30 mg 09/01/25 21:00 09/05/25 08:15 Duloxetine Hcl 30 Mg Capsule.Dr PO 30 mg BID [place] Administration Hydroxyzine HCl 25 mg 09/01/25 21:00 09/05/25 16:29 Hydroxyzine Hcl 25 Mg Tablet PO 25 mg QID [place] Administration Lisinopril 5 mg 09/02/25 09:00 09/05/25 08:15 Lisinopril 5 Mg Tablet PO 5 mg DAILY [place] Administration Protocol Methadone HCl 5 mg 09/03/25 04:47 09/03/25 17:52 Methadone Hcl 5 Mg Tablet PO 5 mg Q6H PRN Administration Pain, Severe (Pain Scale 7-10) Metoprolol Tartrate 75 mg 09/01/25 21:00 09/05/25 08:16 Metoprolol Tartrate 25 Mg Tablet PO 75 mg BID [place] Administration Protocol Metronidazole 500 mg 09/03/25 09:00 09/05/25 08:17 Metronidazole 500 Mg Tablet PO 500 mg BID [place] Administration Nifedipine 30 mg 09/02/25 09:00 09/05/25 08:17 Nifedipine Er 30 Mg Tab.Er.24 PO 30 mg DAILY [place] Administration Protocol Oxycodone HCl 15 mg 09/01/25 20:01 09/05/25 13:51 Oxycodone Hcl Immed Release 15 Mg Tablet PO 15 mg Q6H PRN Administration Pain, Moderate(Pain Scale 4-6) Rivaroxaban 20 mg 09/02/25 17:00 09/05/25 16:29 Rivaroxaban 20 Mg Tablet PO 20 mg DAILY@1700 [place] Administration Trazodone HCl 50 mg 09/01/25 21:00 09/04/25 22:08 Trazodone Hcl 50 Mg Tablet PO 50 mg BEDTIME [place] Administration Medical Decision Making Medical Decision Making MDM Narrative: Patient is a 70 year old assigned male at with a history of major depressive disorder (MDD), paroxysmal atrial fibrillation (AFib) on anticoagulation, hypertension, opioid dependence (on methadone), intravenous drug use, AICD/DDD pacemaker, chronic vague suicidality, and prior C. difficile infection presenting to the emergency department today with continued difficulty ambulating and chronic generalized pain. Patient's physical exam was as noted in the physical exam portion of this note and consistent with his baseline. Patient's blood work was unremarkable. I explained my physical exam findings as well as all test results to the patient. I answered all questions asked by the patient. Patient placed into observation at 1544 on 09/01/2025 pending physical therapy and case management evaluations. Differential Diagnosis Differential Diagnoses: The differential diagnosis associated with the presentation includes Chronic weakness Chronic abdominal pain Admission/Observation Consideration of admission/observation: Escalation of care including admission/observation considered Patient would have been admitted to the hospital had his work up had any findings where hospital admission was appropriate and his clinical presentation warranted hospital admission. Lab Data [facility] Lab Attestation statement: I reviewed the patient's lab results. My interpretation of these results are in the MDM Rationale portion of this note. 09/01/25 16:18 09/01/25 16:18 Labs: Lab Results 09/01/25 Range/Units 16:18 WBC 6.9 (4.8-10.8) X10*3/uL RBC 4.07 L (4.60-5.80) X10*6/uL Hgb 11.6 L (14.0-18.0) g/dl Hct 36.5 L (42.0-52.0) % MCV 89.7 (80.0-98.0) fL MCH 28.5 (27.0-33.0) pg MCHC 31.8 (31.0-36.0) g/dl RDW 14.6 (11.0-16.0) % Plt Count 247 (160-400) X10*3/uL MPV 10.1 (9.4-12.4) fL Immature Gran % (Auto) 0.6 H (0.0-0.4) % Neut % (Auto) 61.8 (45-73) % Lymph % (Auto) 23.9 (20-40) % Steele % (Auto) 10.6 (2-11) % Eos % (Auto) 2.7 (0-4) % Baso % (Auto) 0.4 (0-2) % Lymph # (Auto) 1.7 (1.2-4.9) X10*3/uL Steele # (Auto) 0.7 (0.1-1.2) X10*3/uL Eos # (Auto) 0.2 (0.0-0.4) X10*3/uL Baso # (Auto) 0.0 (0.0-0.2) X10*3/uL Abs Immat Gran (auto) 0.04 H (0.00-0.03) X10*3/uL Absolute Neuts (auto) 4.3 (2.0-8.3) x10*3/uL Absolute Nucleated RBC 0.000 (0.0-0.012) X10*3/uL Nucleated RBC % (auto) 0.0 (0.0-0.2) /100WBC Sodium 135 (135-145) mmol/L Potassium 4.5 (3.3-5.1) mmol/L Chloride 106 (96-108) mmol/L Carbon Dioxide 22 (22-29) mmol/L Anion Gap 12 (12-20) BUN 12 (9-16) mg/dL Creatinine 0.74 (0.5-1.4) mg/dL Estim Creat Clear Calc 97.5 Estimated GFR > 60 Random Glucose 101 (60-115) mg/dL Calcium 8.9 (8.4-10.2) mg/dL Total Bilirubin 0.2 (0.0-1.0) mg/dL AST 25 (5-37) U/L ALT 7 (0-40) U/L Alkaline Phosphatase 55 (39-117) U/L Total Protein 6.8 (6.5-8.0) g/dL Albumin 3.4 L (3.5-5.0) g/dL COVID-19 ([facility]OR) Negative (Negative) COVID-19 Clin Com See Note Independent Historian Clinical information obtained from an independent historian. History obtained from or confirmed by: EMS (EMS provided additional history and confirmed the history provided by the patient. ) External Record Review External record reviewed: In[place] record [place] [facility] [place] Discharge Plan Discharge Clinical Impression: Suicidal ideation Chronic pain Qualifiers: Chronic pain type: other chronic pain Qualified Code(s): G89.29 - Other chronic pain Patient Disposition: Xfer LTC Transfer Details: Adal[facility]isabel Prescriptions: No Action trazodone 50 mg tablet 1 tab PO BEDTIME Qty: 30 0RF lisinopril 5 mg tablet 1 tab PO DAILY Qty: 30 0RF docusate sodium [Colace] 100 mg Capsule 100 mg PO BID PRN (Reason: Constipation) clonidine HCl 0.1 mg tablet 0.1 mg PO TID methadone 10 mg tablet 5 mg PO Q6H PRN (Reason: Pain) oxycodone 15 mg tablet 15 mg PO Q6H PRN (Reason: Pain) nifedipine [Procardia XL] 30 mg tablet extended release 24hr 30 mg PO DAILY Qty: 90 0RF magnesium oxide 400 mg (241.3 mg magnesium) tablet 200 mg PO BID Rx Instructions: UNTIL 08/31/2025 metoprolol tartrate 50 mg tablet 75 mg PO BID Protocol: Hold for SBP/HR < HOLD for SBP < : 90 HOLD for HR < : 60 cephalexin 500 mg capsule 500 mg PO BID 3 Days Qty: 6 0RF hydroxyzine HCl 25 mg tablet 25 mg PO QID Xarelto 20 mg tablet 20 mg PO DAILY@1700 duloxetine 30 mg Capsule,Delayed Release(Dr/Ec) 30 mg PO BID Discharge Date/Time: 09/05/25 18:17 Print Language: Fijian
[2025-09-01 16:22] LABS: MANUAL DIFF FLAG NO
[2025-09-01 16:24] LABS: Hematocrit 36.5 % (42.0-52.0); Hemoglobin 11.6 g/dl (14.0-18.0); Imm Gran Abs Auto 0.04 X10*3/uL (0.00-0.03); Imm Gran Pct Auto 0.6 % (0.0-0.4); Lymphocytes Absolute Auto 1.7 X10*3/uL (1.2-4.9); Mean Corpuscular HGB Conc 31.8 g/dl (31.0-36.0); Mean Corpuscular Hemoglobin 28.5 pg (27.0-33.0); Mean Corpuscular Volume 89.7 fL (80.0-98.0); NRBC Abs Auto 0.000 X10*3/uL (0.0-0.012); NRBC Pct Auto 0.0 /100WBC (0.0-0.2); Platelet Count 247 X10*3/uL (160-400); Red Blood Count 4.07 X10*6/uL (4.60-5.80); White Blood Count 6.9 X10*3/uL (4.8-10.8)
[2025-09-01 16:39] LABS: Alanine Aminotransferase 7 U/L (0-40); Albumin Level 3.4 g/dL (3.5-5.0); Alkaline Phosphatase 55 U/L (39-117); Anion Gap 12 (12-20); Aspartate Amino Transferase 25 U/L (5-37); Blood Urea Nitrogen 12 mg/dL (9-16); Calcium 8.9 mg/dL (8.4-10.2); Carbon Dioxide 22 mmol/L (22-29); Chloride 106 mmol/L (96-108); Creatinine Clr Calc Pharmacy 97.5; Estimated Glomerular Filt Rate > 60; Potassium 4.5 mmol/L (3.3-5.1); Sodium 135 mmol/L (135-145); Total Protein 6.8 g/dL (6.5-8.0)
[2025-09-01 16:44] LABS: COVID-19 Test Negative (Negative); IDNOW Serial# 55D5AD1C
--- NOTE | 2025-09-01 18:19 | PC.NURSE ---
Pt vape placed with security. All other belongings searched and at bedside with patient.
[2025-09-01 18:36] VITALS: BP 134/74; PULSE 97; RESP 16; TEMP 36.8; O2SAT 94
--- NOTE | 2025-09-01 19:09 | PC.NURSE ---
pharmacy advised of pt PTCM status, pharmacy confirms they will come down to do pt med req.
--- NOTE | 2025-09-01 19:12 | PC.NURSE ---
assumed care of pt, pt resting in stretcher watching tv, respirations even and unlabored.
--- NOTE | 2025-09-01 19:37 | PC.NURSE ---
pt reports generalized pain 07/12, med req done by this RN, confirmed with pharmacy.
[2025-09-01] MEDS: oxyCODONE HCl Immed Release 15 MG TABLET PO (20:57)
[2025-09-01 20:58] VITALS: BP 144/97
[2025-09-01 21:01] VITALS: BP 144/97; PULSE 90
--- NOTE | 2025-09-01 21:05 | PC.NURSE ---
pt requesting IV pain meds, provider and this RN at bedside, advised pt we have PRN oxycodone and his home meds. pt agreed to take medication. pt medicated per DEC.
[2025-09-01 22:00] VITALS: BP 104/76; PULSE 88; RESP 16; TEMP 36.7; O2SAT 93
--- NOTE | 2025-09-01 23:09 | PC.NURSE ---
Assumed care of patient at this time pt is resting comfortably in stretcher. urinal emptied
[2025-09-02] VITALS (9 sets, daily range): BP systolic 119–152; BP diastolic 76–102; PULSE 88–112; RESP 16–19; TEMP 36.2–37.1; O2SAT 93–97
[2025-09-02] MEDS: oxyCODONE HCl Immed Release 15 MG TABLET PO ×4 (03:36→23:06)
[2025-09-02] MEDS: NIFEdipine ER 30 MG TAB.ER.24 PO (08:28)
--- NOTE | 2025-09-02 14:10 | PHA.MEDREC ---
Pharmacy Consult ? Medication Reconciliation Pharmacy has REVIEWED the medication reconciliation done by RN. Utilized pharmacy claims, and added potassium chloride and magnesium oxide
--- NOTE | 2025-09-02 17:32 | PC.NURSE ---
Pt alert and oriented. Ate his meals with no assistance. Took all his meds PO whole with no issues, PRN oxy for pain per DEC. Ambulated to bathroom with 1 assist and cane. Plan of care ongoing, plan for STR
--- NOTE | 2025-09-02 22:28 | PC.NURSE ---
pt moved to private room with curtain open, close to nurses station. Pt in hospital bed w/ alarm set at this time.
--- NOTE | 2025-09-02 23:27 | PC.NURSE ---
verbal report given to Kaity JUAREZ in overflow, no questions
[2025-09-03] MEDS: oxyCODONE HCl Immed Release 15 MG TABLET PO ×2 (04:35→11:40)
--- NOTE | 2025-09-03 04:53 | PC.NURSE ---
Assumed care of patient in ED Overflow at 2300. Patient resting in bed throughout night without issue. At approximately 0415, patient awake requesting pain meds. While sitting up, pt endorsing SI with vague plan. Pt states I don't want to be alive, I have nothing to live for and if I find a way to do it, I will. I've slit my wrists, I've overdosed, I'll stab myself in the eye with a pen if I have to. I don't want to live anymore.I'm gonna do it. Staff stayed with patient, general car yard supervisor and ED charge notified. Patient escorted to pod.
--- NOTE | 2025-09-03 05:06 | PC.NURSE ---
Assumed care at approximately 0500. control and recovery combat rescue completed in POD. Patient changed into appropriate attire with security present. Presents as friendly, calm, and cooperative. Ambulates independently with slow steady gait using rolling walker. Endorses feelings of hopelessness and worthlessness. Endorses vague +SI and states I just want what's already gonna happen to me..to happen since it's inevitable. I can feel my body failing me. Reports feeling alone, lacking a family/support system, and nobody to care for me. Patient shared his first marriage was the love of his life and nobody could ever measure. Reports his first and he remarried, but she too. Patient states God must really hate me. Denies HI/AVH. Feels safe on the unit. Agreeable to alert staff if feeling unsafe. 15 minute safety checks initiated. Will continue to monitor for safety. Plan for Care Team to evaluate in the AM.
--- NOTE | 2025-09-03 05:33 | PC.NURSE ---
Patient arrived to POD without slippers that are listed on Patient Belongings List. switch operator Selena reported some patient medications were brought home earlier and slippers could have potentially went with. Will pass information on to oncoming Nurse Mel to follow up in the AM with [facility].
--- NOTE | 2025-09-03 05:36 | MHC.EDTECH ---
patient arrived to POD, Changed over do with Chiquita and Myself. Belongings list reviewed cane added to the list along with a pair of sweatpants, however slippers listed can not be located. patient came from overflow to POD. i called over to over flow and talked to mae who stated that she did not see them over there. I messaged Katherin JUAREZ who did the belongings list and she only had the patient 4 hrs thursday and before he was moved. I went out to talk to the charge nurse Lorena to make her aware and to see if we could have staff look under and behind all stretchers in the ED to see if there are any loose slippers hanging around. I looked myself i all of the front main as that was empty and did not find them along with all empty hallway beds and room stretchers that were empty with out success. It was mentioned that someone from the SNF came by earlier in the day to take medication back but nothing was mentioned if anything else was taken. Current Pod nurse will communicate this with Am nurse to contact SNF to follow up
[2025-09-03 05:57] VITALS: RESP 17
[2025-09-03 06:14] VITALS: BP 141/98; PULSE 88; RESP 18; TEMP 36.3; O2SAT 98
--- NOTE | 2025-09-03 06:47 | PC.NURSE ---
unable to find slippers, notified Pod nurse to call family in am to see if they were sent home, they are listed on belonging list.
--- NOTE | 2025-09-03 07:06 | PC.NURSE ---
Assumed care of patient at 0645, patient presents to the nurses station this am, agitated, I am being held against my will, I would like to be connected with an district plant supervisor, I know my rights and they are being invoked . Pt then stated look, I don't have to be, but I can get violent, there are too many of you in total but you (referring to this RN), it won't end well for you . Pt redirected by HE Love back to his room
[2025-09-03 08:05] VITALS: BP 142/100
[2025-09-03] MEDS: NIFEdipine ER 30 MG TAB.ER.24 PO (08:06)
--- NOTE | 2025-09-03 09:07 | PC.NURSE ---
When initially offering medications, pt asks Is there Oxycodone here . This RN educated patient that he is not due for Oxycodone for a little bit of time. Pt crumpled med cup and attempted to hide meds under blanket, after being requested to hand back meds, pt states fine, but I am not taking them . Pt then re-presented to the nurses station after about 10 minutes and willingly took PO medications as well as PRN Methadone
[2025-09-03 11:58] VITALS: BP 137/96; PULSE 87; RESP 18; TEMP 36.7; O2SAT 99
--- NOTE | 2025-09-03 16:58 | PC.NURSE ---
Pt walking around BH pod with steady gait with walker, no apparent distress is noted. Patient frequently requesting to move back out to the ER, or to use urinal. Pt aware that he cannot leave the pod and that he can walk to the bathroom if needed
[2025-09-03 20:15] VITALS: BP 126/87; PULSE 93; RESP 18; TEMP 36.4; O2SAT 96
[2025-09-03 20:18] VITALS: BP 126/87; PULSE 93
--- NOTE | 2025-09-04 00:55 | PC.NURSE ---
Took over care at 23:00 from Rn Mel, pt sleelping no sign of distess.
--- NOTE | 2025-09-04 02:08 | PC.NURSE ---
pt sleeping at this time.
--- NOTE | 2025-09-04 04:47 | PC.NURSE ---
pt oob bed to bathroom, pt being demanding and rude at times, pt redirected back to room.
[2025-09-04] MEDS: oxyCODONE HCl Immed Release 15 MG TABLET PO ×3 (06:06→17:40)
--- NOTE | 2025-09-04 06:07 | PC.NURSE ---
medicated per mar.
[2025-09-04] MEDS: NIFEdipine ER 30 MG TAB.ER.24 PO (07:43)
[2025-09-04 07:48] VITALS: BP 131/84; PULSE 108; RESP 14; TEMP 36.6; O2SAT 95
--- NOTE | 2025-09-04 08:20 | MHC.CM.ED ---
Addendum entered by Leia Tejada 09/04/25 15:50: [facility] HAS AUTHORIZED STR, HOWEVER [facility] NOW STATES CONCERNS OVER PTS SI UPDATES INCLUDING CARE TEAM CLEARANCE WERE SENT PER LIAISON, THE REGIONAL AND DAIRY TECHNICIAN WILL REVIEW AND DETERMINE IF THEY CAN ACCEPT TRANSPORT WAS BOOKED FOR 1829, HOWEVER [facility] HAS ASKED THAT IT BE CANCELLED Original Note: Patient remains in ER. PT is rec STR. [facility] [place] is in the process of obtaining ins auth. Continue to monitor for d/c needs.
--- NOTE | 2025-09-04 09:26 | PC.NURSE ---
Assumed care, report received. Pt is calm and cooperative, he ambulates with his walker and is steady on his feet. Pt is provided his medications and asks for pain med, he is educated on the frequency Q6hrs. He asks to go back to his TL, plan is pending for Dispo.
[2025-09-04 15:01] VITALS: BP 124/80; PULSE 83; RESP 16; TEMP 36.3; O2SAT 98
[2025-09-04 22:01] VITALS: BP 123/76; PULSE 94; RESP 18; TEMP 36.4; O2SAT 96
[2025-09-04 22:07] VITALS: BP 123/76
[2025-09-04 22:08] VITALS: BP 123/76; PULSE 94
--- NOTE | 2025-09-04 22:57 | PC.NURSE ---
Late entry for 2144 RN to bedside to answer an outward yell ( Nurse ) heard from the patient. He was found seated upright on the side of the bed with skin warm and dry, respirations even and unlabored and no distress noted. he is reporting the presence of generalized pain and inquired about his pain medication and how it doesn't work. The pt expressed his frustration regarding his supposed transfer earlier in the day that had been put on hold for unknown reasons to him. The pt made some vague SI statements as he reports having no one and having no reason to live . the pt offers no other concerns/complaints at this time
--- NOTE | 2025-09-05 02:28 | PC.NURSE ---
pt oob to bathroom
--- NOTE | 2025-09-05 03:32 | PC.NURSE ---
pt assist to the bathroom .
[2025-09-05 07:25] VITALS: BP 144/99; PULSE 103; RESP 18; TEMP 36.9; O2SAT 97
--- NOTE | 2025-09-05 07:47 | PC.NURSE ---
Assumed care, report received. Pt is awake, he has eaten breakfast and is asking for pain medication. Pt urinated in his denture cup with his dentures in them, he hs been urinating in drinking cups as well. Limits and reminders are set.
[2025-09-05] MEDS: oxyCODONE HCl Immed Release 15 MG TABLET PO ×2 (08:16→13:51)
[2025-09-05] MEDS: NIFEdipine ER 30 MG TAB.ER.24 PO (08:17)
--- NOTE | 2025-09-05 13:25 | MHC.CM.ED ---
Addendum entered by Jo Miller 09/05/25 14:11: Pt no longer wants to pursue STR and is requesting to return to [facility]. Documentation supports pt's ambulation to the BR without assistance. Discussed plan with JEFF Chaudhry from [facility]. New scripts for ATB will be faxed to [facility] - no other med changes. Hattie DEAN arranged for a 3:30 transport back to pt's [facility]. Original Note: Pt continues holding in the ED awaiting [facility] placement. At the time of this note, [facility] is requesting a level 2 - they are also requesting tox screen results however, a tox screen was never ordered during this ED visit. Awaiting response from facility at this time.
[2025-09-05 14:20] VITALS: BP 113/74; PULSE 74; RESP 16; TEMP 36.5; O2SAT 98
== END 2025-09-05 18:17 ==
PROVIDERS: Physician Assistant Medical; Emergency Provider Emergency Medicine; PCP Internal Medicine
DX: R45.851 Suicidal ideations (principal); G89.29 Other chronic pain; Z03.818 Encounter for observation for suspected exposure to other biological agents ruled out
CPT/HCPCS: 80053; 85025; 87635; 97162; 99285; S9485